=== PATIENT | female | born 1945 | race Caucasian/White ===

== ENCOUNTER → 2019-06-19 11:44 | Outpatient (BNVA) | payer MEDICARE, OTHER, SELFPAY | PROVIDERS: Family Provider Internal Medicine; PCP Internal Medicine; Referring Provider Internal Medicine; Visit Provider Internal Medicine Rheumatology | DX: M06.00 Rheumatoid arthritis without rheumatoid factor, unspecified site (principal); Z79.899 Other long term (current) drug therapy | CPT/HCPCS: 36415; 80053; 85025; 85651; 86140; 96365; J1602 ==

== ENCOUNTER → 2019-06-19 12:08 | Outpatient (BNVA) | payer MEDICARE, OTHER, SELFPAY | PROVIDERS: Family Provider Internal Medicine; PCP Internal Medicine; Referring Provider Internal Medicine; Visit Provider Internal Medicine Rheumatology | DX: M06.00 Rheumatoid arthritis without rheumatoid factor, unspecified site (principal) | CPT/HCPCS: 85025 ==

== ENCOUNTER 2019-06-19 13:15 | Outpatient (CLI) | payer MEDICARE, OTHER, SELFPAY | END 2019-06-19 13:16 | disposition home or self-care (01) | LOC: RHEOACUTE 06-26 16:24 | PROVIDERS: Family Provider Internal Medicine; PCP Internal Medicine; Visit Provider Internal Medicine Rheumatology | DX: Z76.89 Persons encountering health services in other specified circumstances (principal) | CPT/HCPCS: J1602 ==

== ENCOUNTER 2019-07-20 09:42 | Outpatient (CLI) | payer MEDICARE, OTHER, SELFPAY ==
[2019-07-20 10:05] VITALS: BP 149/63; PULSE 67; RESP 16; TEMP 36.5; O2SAT 96
[2019-07-20 11:20] VITALS: BP 130/65; PULSE 59; RESP 16; TEMP 36.5; O2SAT 96
== END 2019-07-20 09:43 | disposition home or self-care (01) ==
LOC: RHEOACUTE 09:43
PROVIDERS: Family Provider Internal Medicine; PCP Internal Medicine; Visit Provider Internal Medicine Rheumatology
DX: M06.00 Rheumatoid arthritis without rheumatoid factor, unspecified site (principal); Z79.899 Other long term (current) drug therapy; Z11.59 Encounter for screening for other viral diseases; Z72.89 Other problems related to lifestyle
CPT/HCPCS: 36415; 86704; 86803; 87340; 96365; J1602

== ENCOUNTER 2019-07-27 10:04 | Outpatient (CLI) | payer MEDICARE, OTHER, SELFPAY ==
--- NOTE | 2019-07-27 10:15 | MM_ITS ---
WS: [id number] BILATERAL DIGITAL SCREENING MAMMOGRAPHY WITH CAD CLINICAL INFORMATION: SCREENING HISTORY: Screening mammogram. No current complaints. COMPARISON: February 10, 2018 TECHNIQUE: Bilateral CC and MLO views. FINDINGS: Scattered fibroglandular densities bilaterally. Punctate calcifications. No suspicious focal mass, as ymmetry, calcifications, or architectural distortion. No evidence of malignancy. MM/[place] [id number] IMPRESSION: BI-RADS: 2-Benign FOLLOW UP: 1 Year Follow-up Recommend return to annual screening mammography.
== END 2019-07-27 10:05 | disposition home or self-care (01) ==
LOC: RADSHAW 10:08
PROVIDERS: Family Provider Internal Medicine; PCP Internal Medicine; Visit Provider Internal Medicine
DX: Z12.31 Encounter for screening mammogram for malignant neoplasm of breast (principal)
CPT/HCPCS: 77067

== ENCOUNTER 2019-08-17 08:25 | Outpatient (CLI) | payer MEDICARE, OTHER, SELFPAY | END 2019-08-17 08:26 | disposition home or self-care (01) | LOC: RHEOACUTE 08:26 | PROVIDERS: Family Provider Internal Medicine; PCP Internal Medicine; Visit Provider Internal Medicine Rheumatology | DX: Z01.89 Encounter for other specified special examinations (principal) ==

== ENCOUNTER 2019-09-06 13:50 | Outpatient (CLI) | payer MEDICARE, OTHER, SELFPAY ==
--- NOTE | 2019-09-06 14:03 | XR_ITS ---
WS: [id number] LEFT HAND: 3 VIEW(S) TECHNIQUE: PA, oblique and lateral. HISTORY: rheumatoid arthritis COMPARISON: 12/11/2015 Progression of erosive changes at the interphalangeal joints. Most significant involving the proximal interphalangeal joints of the second through fourth fingers. Extensive erosions and soft tissue anitha a and osteopenia. Additional erosions at the first carpometacarpal joint. Subtle erosions involving t he second and fifth metacarpal heads. Overall progression since the prior examination. XR/XR hand LT min 3V* [id number] IMPRESSION: Progression of erosive changes at the interphalangeal joint spaces and the firs t carpometacarpal joint. Most consistent with erosive arthritis. Subtle changes involving the second and fifth metacarpal heads consistent with erosions which can be seen with rheumatoid.
--- NOTE | 2019-09-06 14:03 | XR_ITS ---
WS: [id number] LEFT FOOT: 3 VIEW(S) TECHNIQUE: PA, oblique and lateral. HISTORY: rheumatoid arthritis COMPARISON: None available. No acute fracture or dislocation. There is diffuse osteopenia which can be early finding of rheumatoid arthritis. No definite erosions. Moderate-sized calcaneal spur. Prior arthroplasty at the LEFT ankle. XR/XR foot LT min 3V* [id number] IMPRESSION: 1. Mild diffuse osteopenia. May be an early finding of rheumatoid arthritis. 2. No erosions.
--- NOTE | 2019-09-06 14:03 | XR_ITS ---
WS: [id number] RIGHT FOOT: 3 VIEW(S) TECHNIQUE: PA, oblique and lateral. HISTORY: rheumatoid arthritis COMPARISON: None available. No acute fracture or dislocation. Normal tarsal/metatarsal alignment. No erosions or subluxation. Moderate size calcaneal spur. Mild de generative changes along the dorsal surface of the midfoot. More likely osteoarthritis. No soft tissue abnormality or bone destruction. 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 No changes of rheumatoid.
--- NOTE | 2019-09-06 14:03 | XR_ITS ---
WS: [id number] RIGHT HAND: 3 VIEW(S) TECHNIQUE: PA, oblique and lateral. HISTORY: rheumatoid arthritis COMPARISON: 12/11/2015 Since the prior examination plate and screw fixation across the distal radius and third metacarpal. S evere rheumatoid changes involving the carpal bones. There is loss of joint space. Poor distinction o f the carpus. Extensive erosions in the bones of the wrist and proximal metacarpals. Significant prog ression of disease since 12/11/2015. Also significant progression since 08/12/2017. Extensive interphalangeal joint space narrowing involving the proximal and distal joint spaces. Hyper trophic bone formation with loss of the joint spaces. XR/XR hand RT min 3V* [id number] IMPRESSION: 1. Severe rheumatoid arthritis involving the carpus and adjacent articular josue face with plate and screw fixation between the radius and third metacarpal. 2. Significant progression of rheumatoid findings since 08/12/2017. 3. Severe interphalangeal joint space narrowing. More typical of osteoarthriti s or erosive arthritis.
== END 2019-09-06 13:51 | disposition home or self-care (01) ==
LOC: RADWPI 13:55
PROVIDERS: Family Provider Internal Medicine; PCP Internal Medicine; Visit Provider Internal Medicine Rheumatology
DX: M06.9 Rheumatoid arthritis, unspecified (principal); M19.071 Primary osteoarthritis, right ankle and foot; M85.872 Other specified disorders of bone density and structure, left ankle and foot
CPT/HCPCS: 73130; 73630

== ENCOUNTER 2019-09-14 12:46 | Outpatient (CLI) | payer MEDICARE, OTHER, SELFPAY ==
[2019-09-14 13:14] VITALS: BP 126/58; PULSE 84; RESP 16; TEMP 36.7; O2SAT 98
--- NOTE | 2019-09-14 14:20 | PC.NURSE ---
c/o finger pain and swelling. left hand 4th digit. Dr. Cifuentes notified.
[2019-09-14 14:35] VITALS: BP 151/69; PULSE 73; RESP 18; TEMP 36.6; O2SAT 96
== END 2019-09-14 12:47 | disposition home or self-care (01) ==
LOC: RHEOACUTE 12:48
PROVIDERS: Family Provider Internal Medicine; PCP Internal Medicine; Visit Provider Internal Medicine Rheumatology
DX: M10.00 Idiopathic gout, unspecified site (principal); M06.00 Rheumatoid arthritis without rheumatoid factor, unspecified site; D64.9 Anemia, unspecified; Z79.899 Other long term (current) drug therapy; M19.90 Unspecified osteoarthritis, unspecified site
CPT/HCPCS: 20600; 36415; 80076; 82565; 82728; 84550; 85025; 85651; 86140; 96365; J1602; J2001; J3301

== ENCOUNTER 2019-11-09 08:54 | Outpatient (CLI) | payer MEDICARE, OTHER, SELFPAY ==
[2019-11-09 09:05] VITALS: BP 136/67; PULSE 63; RESP 16; TEMP 36.6; O2SAT 98
[2019-11-09 10:35] VITALS: BP 134/63; PULSE 62; RESP 16; TEMP 36.7; O2SAT 98
== END 2019-11-09 08:55 | disposition home or self-care (01) ==
LOC: RHEOACUTE 08:57
PROVIDERS: Family Provider Internal Medicine; PCP Internal Medicine; Visit Provider Internal Medicine Rheumatology
DX: M06.00 Rheumatoid arthritis without rheumatoid factor, unspecified site (principal); Z79.899 Other long term (current) drug therapy
CPT/HCPCS: 36415; 80076; 82565; 85025; 85651; 86140; 96365; J1602

== ENCOUNTER 2020-01-04 09:19 | Outpatient (CLI) | payer MEDICARE, OTHER, SELFPAY ==
[2020-01-04 09:25] VITALS: BP 156/59; PULSE 64; RESP 16; TEMP 36.7; O2SAT 98
--- NOTE | 2020-01-04 10:18 | PC.NURSE ---
States L 4th finger pain. States will need injection sometime. States starts hurting worse 2 weeks prior to infusion.
[2020-01-04 10:47] VITALS: BP 141/70; PULSE 64; RESP 16; TEMP 36.7; O2SAT 98
== END 2020-01-04 09:20 | disposition home or self-care (01) ==
LOC: RHEOACUTE 09:20
PROVIDERS: Family Provider Internal Medicine; PCP Internal Medicine; Visit Provider Internal Medicine Rheumatology
DX: Z79.899 Other long term (current) drug therapy (principal); M06.00 Rheumatoid arthritis without rheumatoid factor, unspecified site
CPT/HCPCS: 80076; 82565; 85025; 85651; 86140; 96365; J1602

== ENCOUNTER → 2020-01-08 09:33 | Outpatient (BNVA) | payer MEDICARE, OTHER, SELFPAY | PROVIDERS: Family Provider Internal Medicine; PCP Internal Medicine; Visit Provider Internal Medicine Rheumatology | DX: M06.041 Rheumatoid arthritis without rheumatoid factor, right hand (principal); M06.042 Rheumatoid arthritis without rheumatoid factor, left hand; Z79.899 Other long term (current) drug therapy; M10.00 Idiopathic gout, unspecified site; M19.90 Unspecified osteoarthritis, unspecified site; D64.9 Anemia, unspecified; D72.829 Elevated white blood cell count, unspecified; Z79.52 Long term (current) use of systemic steroids | CPT/HCPCS: 20600; 99214; J1030 ==

== ENCOUNTER 2020-03-31 14:25 | Inpatient (IN) | payer MEDICARE, OTHER, SELFPAY ==
[2020-03-31] VITALS (14 sets, daily range): BP systolic 148–206; BP diastolic 63–90; PULSE 68–96; RESP 14–24; TEMP 36.9; O2SAT 95–98; BMI 36.8
--- NOTE | 2020-03-31 15:24 | XRR_ITS ---
PROCEDURE INFORMATION: Exam: XR Chest, 1 View Exam date and time: 03/31/2020 3:36 PM Age: 74 years old Clinical indication: Left-sided chest pain TECHNIQUE: Imaging protocol: XR of the chest Views: 1 view. COMPARISON: CR Chest 2 views* [id number] 07/13/2018 3:22 PM FINDINGS: Lungs: Stable right calcified hilar nodes and/or mediastinal nodes and/or lung nodules consistent with old granulomatous disease. Pleural space: Unremarkable. No pleural effusion. No pneumothorax. Heart/Mediastinum: Unremarkable. No cardiomegaly. Bones/joints: Stable postoperative metallic fixation of the cervical spine with or without metallic artifact. Total right shoulder replacement. XR/XR chest 1V portable [id number] IMPRESSION: No acute findings.
--- NOTE | 2020-03-31 15:24 | ECG_ITS ---
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
[2020-03-31] MEDS: aspirin 81 mg Chew Tablet 324 MG PO (15:53)
[2020-03-31 15:54] LABS: Basophils # 0.1 10^3/uL (0.0-0.1); Basophils % 0.4 %; Eosinophils # 0.4 10^3/uL (0.0-0.8); Hematocrit 31.2 % (37.0-47.0); Lymphocytes # 1.9 10^3/uL (0.8-4.8); Lymphocytes % 10.6 %; Mean Corpuscular HGB Conc 28.8 g/dL (30.0-36.0); Mean Corpuscular Hemoglobin 26.1 pg (28.0-34.0); Mean Corpuscular Volume 90.4 fL (81-99); Mean Platelet Volume 10.3 fL (7.4-10.4); Monocytes # 1.2 10^3/uL (0.2-0.9); Monocytes % 6.8 %; Neutrophils # 14.32 10^3/uL (1.8-7.7); Neutrophils % 78.6 %; Nucleated Red Blood Cells % 0 %; Platelet Count 439 10^3/cmm (130-400); Red Blood Count 3.45 10^6/uL (4.1-5.3); Red Cell Distribution Width 16.9 % (12.1-15.1); White Blood Count 18.2 10^3/uL (4.0-10.0)
[2020-03-31 16:17] LABS: Troponin(5th) Baseline 11 ng/L (0-10)
--- NOTE | 2020-03-31 16:19 | CTR_ITS ---
PROCEDURE INFORMATION: Exam: CT Angiography Chest With Contrast Exam date and time: 03/31/2020 5:16 PM Age: 74 years old Clinical indication: Left-sided chest pain; Prior surgery; Surgery date: 6+ months; Surgery type: Shoulder, gb; Patient HX: C/O L sided cp w SOB; Additional info: Left-sided chest pain and dyspnea TECHNIQUE: Imaging protocol: Computed tomographic angiography of the chest with intravenous contrast. 3D rendering (Not supervised by radiologist): MIP and/or 3D reconstructed images were created by the technologist. Radiation optimization: All CT scans at this facility use at least one of these dose optimization techniques: automated exposure control; mA and/or kV adjustment per patient size (includes targeted exams where dose is matched to clinical indication); or iterative reconstruction. Contrast material: VISI 320; Contrast volume: 95 ml; Contrast route: INTRAVENOUS (IV); COMPARISON: CT Chest/Abdomen/Pelvis w IV* 03/22/2017 9:35 AM RADIATION DOSE METRICS: Total DLP (mGy-cm): 580.95 FINDINGS: Pulmonary arteries: Normal. No pulmonary emboli. Aorta: Unremarkable. No aortic aneurysm. No aortic dissection. Great vessels off aortic arch: Calcification of the thoracic aorta and/or great vessels consistent with atherosclerotic vessel disease. Lungs: Increased left basilar discoid atelectasis and/or scarring. Pleural space: Unremarkable. No pneumothorax. No pleural effusion. Heart: Severe calcified coronary artery disease. Lymph nodes: Calcified right hilar nodes and/or mediastinal nodes and/or lung granulomas consistent with old granulomatous disease. Gallbladder and bile ducts: Stable cholecystectomy. Spleen: One or more stable accessory splenules. Bones/joints: Total right shoulder replacement. Moderate left primary glenohumeral osteoarthritis. Postoperative metallic fixation of the cervical spine with or without metallic artifact. Moderate thoracic spondylosis. Soft tissues: Unremarkable. CT/CT angio chest PE protcl [id number] IMPRESSION: 1. Increased left basilar discoid atelectasis and/or scarring. 2. Severe calcified coronary artery disease. Radiation Dose CTDIVOL = (mGy): DLP = 580.95 (mGy-cm)
--- NOTE | 2020-03-31 16:22 | W.ED.CHESTPA ---
Documented by User: Mary Jo Marley MD 04/04/20 06:43 HPI - Chest Pain General: Chief Complaint: Chest Pain Stated Complaint: CP Time Seen by Provider: 03/31/20 15:20 History of Present Illness: HPI narrative: This patient is a 74-year-old female who presents today with chest pain. Her chest pain has been constant for the past 3 days. It is located on the left side of her chest anteriorly. It is present when she breathes and is worse with a deep breath. She gets very short of breath with exertion. She has not had symptoms like this before. She has arthritis and has problems with her left shoulder. When the pain first started she thought that is what was causing it but now she says it feels totally different. She has had some nausea but no vomiting. No fever. Some cough. She is not currently on any treatment for her rheumatoid arthritis. Associated symptoms: Deny abdominal pain, dyspnea, fever(s), nausea or vomiting Review of Systems General: Reports: 10 or more systems reviewed and unremarkable except in HPI and below Const: Reports: fatigue; Denies: fever(s), chills or malaise Eyes: Denies: change in vision ENMT: Denies: odynophagia Card: Denies: chest pain or swelling of feet/ankles Resp: Denies: dyspnea, productive cough or non-productive cough GI: Denies: abdominal pain, nausea or vomiting : Denies: flank pain or difficulty voiding Musc: Denies: neck pain or back pain Skin/Breast: Denies: rash Neuro: Denies: headache(s), numbness in extremities or weakness in extremities Memo/Lymph: Denies: easy bruising or easy bleeding PFSH ED PFSH: Medical History Atypical chest pain Dyslipidemia Gout High risk medication use Immunization counseling Osteoarthritis Seronegative rheumatoid arthritis Seronegative rheumatoid arthritis of both hands Surgical History H/O total knee replacement History of arthroscopic knee surgery History of carpal tunnel surgery History of hip replacement History of hysterectomy History of laparoscopic cholecystectomy History of shoulder surgery History of thumb surgery Family History Sister CAD (coronary artery disease) Heart attack in her 50s and of the same. Mother Stroke Strong family history for CVA. Grandfather, mother, niece all had a CVA Other Asthma Diabetes Hypertension Denies family history of Systemic lupus erythematosus, unspecified Rheumatoid arthritis Social History Smoking and tobacco status: never smoked Alcohol intake: never History of recent travel: No Physical Exam Const: COMMON NORMALS: no acute distress, patient oriented x3, no limitations and alert GENERAL APPEARANCE: cooperative and comfortable HENMT: HEAD & SCALP: normal to inspection FACE & SINUS: normal facial exam Eye: GENERAL EYE: appearance normal, both eyes and all related structures Neck/C-Spine: COMMON NORMALS: supple, no meningeal signs and no JVD Chest: COMMONS NORMALS: normal inspection of the chest Resp: COMMON NORMALS: normal respiratory effort, No use of accessory muscles and clear to auscultation bilaterally AUSCULTATION: clear to auscultation bilaterally Cardio: COMMON NORMALS: no JVD, regular rate, regular rhythm and No murmurs present (Cardio) RATE: regular rate RHYTHM: regular rhythm GI: COMMON NORMALS: Normal to inspection, nondistended, normoactive bowel sounds present, Soft to palpation and non-tender INSPECTION: Yes normal to inspection AUSCULTATION: Yes normoactive bowel sounds PALPATION: Yes Soft to palpation Back/Pelvis: COMMON NORMALS: thoracic and lumbar spine normal to inspection Extremity: COMMON NORMALS: normal to inspection Neuro: COMMON NORMALS: patient oriented x3, moves all extremities, no focal motor deficits and no sensory deficits noted SENSORIUM/ORIENTATION: Yes alert MENINGEAL SIGNS: Yes no meningeal signs Psych: COMMON NORMALS: mental status grossly normal, cooperative and normal affect Skin: COMMON NORMALS: no rashes or lesions noted and turgor normal GENERAL SKIN EXAM: no rashes or lesions noted and turgor normal Course ED course: This patient presents with some chest pain which sounds fairly atypical for cardiac however during her work-up it was noted that she had heavy calcifications on the coronary arteries. She has not had a cardiac work-up. In spite of her fairly benign evaluation otherwise given her increasing and continuing chest pain she probably needs to be admitted for further evaluation. She also has an elevated white count but she has a history of this and has been evaluated for possibility of lymphoma. Apparently no definitive diagnosis was made but a white count of 18 does not appear to be particularly unusual for her. Signed out to Dr. Yepez while awaiting further lab results. Vital Signs: Vital signs: Vital Signs Temperature 97.8 F 04/04/20 04:09 Pulse Rate 71 04/04/20 04:09 Respiratory Rate 18 04/04/20 04:09 Blood Pressure 169/76 04/04/20 04:09 Pulse Oximetry 97 04/04/20 04:09 MDM - Chest Pain Lab Data: Labs: Lab Results 03/31/20 03/31/20 03/31/20 Range/Units 15:40 15:40 15:40 WBC 18.2 H (4.0-10.0) 10^3/ uL RBC 3.45 L (4.1-5.3) 10^6/u L Hgb 9.0 L (11.5-15.3) g/dL Hct 31.2 L (37.0-47.0) % MCV 90.4 (81-99) fL MCH 26.1 L (28.0-34.0) pg MCHC 28.8 L (30.0-36.0) g/dL RDW 16.9 H (12.1-15.1) % Plt Count 439 H (130-400) 10^3/c mm MPV 10.3 (7.4-10.4) fL Neut % (Auto) 78.6 % Lymph % (Auto) 10.6 % Moore % (Auto) 6.8 % Eos % (Auto) 2.0 % Baso % (Auto) 0.4 % Neut # (Auto) 14.32 H (1.8-7.7) 10^3/u L Lymph # (Auto) 1.9 (0.8-4.8) 10^3/u L Moore # (Auto) 1.2 H (0.2-0.9) 10^3/u L Eos # (Auto) 0.4 (0.0-0.8) 10^3/u L Baso # (Auto) 0.1 (0.0-0.1) 10^3/u L Nucleated RBC % (a uto) 0 % Nucleated RBCs # 0.0 /100WBC Sodium 136 (136-145) mmol/L Potassium 4.5 (3.5-5.1) mmol/L Chloride 99 (98-107) mmol/L Carbon Dioxide 26 (22-29) mmol/L Anion Gap 15.5 (5-19) BUN 24 H (8-23) mg/dL Creatinine 1.0 H (0.5-0.9) mg/dL GFR Calculation Not Reportable Glucose 150 H (65-115) mg/dL POC Glucose (70-110) mg/dL Estimat Average Gl ucose Hemoglobin A1c (4.0-6.0) % Calculated Osmolal ity 289 (285-295) mOsm/k g Calcium 9.5 (8.5-10.5) mg/dL Magnesium (1.7-2.3) mg/dL Total Bilirubin 0.3 (0.15-1.2) mg/dL AST 10 (0-32) U/L ALT 10 (0-33) U/L Alkaline Phosphata se 102 (35-105) IU/L Troponin T Gen 5 n g/L (0-10) ng/L Troponin T Baselin e 11 H (0-10) ng/L Troponin T 120 Min [place] (0-10) ng/L Delta Troponin T (0-10) ABS# NT-Pro-B Natriuret Pep 276 (0-450) pg/mL Total Protein 7.8 (6.6-8.7) g/dL Albumin 3.4 L (3.5-5.2) g/dL Globulin 4.4 (1.3-4.6) g/dL Triglycerides (0-150) mg/dL Cholesterol (0-200) mg/dL LDL Cholesterol, C alc (50-129) mg/dL HDL Cholesterol (60-100) mg/dL LDL/HDL Ratio (0.00-3.22) RATI O Cholesterol/HDL Ra wilfrid (0.0-4.40) mg/dL Lipase 16 (13-60) U/L Procalcitonin (0-0.5) ng/mL Urine Color (Yellow) Urine Appearance (CLEAR) Urine pH (5-7) Ur Specific Gravit y (1.005-1.030) Urine Protein (Negative) Urine Glucose (UA) (Normal) Urine Ketones (Negative) Urine Blood (Negative) Urine Nitrate (Negative) Urine Bilirubin (Negative) Urine Urobilinogen (Negative) mg/dL Ur Leukocyte Hailey ase (Negative) Urine RBC (0-2) /hpf Urine WBC (0-5) /hpf Ur Squamous Epith Cells (0-5) /hpf Amorphous Sediment Urine Bacteria (NONE) /hpf SARS-CoV-2 Ag (Rap id) (Negative) 03/31/20 03/31/20 03/31/20 Range/Units 15:40 17:34 18:45 WBC (4.0-10.0) 10^3/ uL RBC (4.1-5.3) 10^6/u L Hgb (11.5-15.3) g/dL Hct (37.0-47.0) % MCV (81-99) fL MCH (28.0-34.0) pg MCHC (30.0-36.0) g/dL RDW (12.1-15.1) % Plt Count (130-400) 10^3/c mm MPV (7.4-10.4) fL Neut % (Auto) % Lymph % (Auto) % Moore % (Auto) % Eos % (Auto) % Baso % (Auto) % Neut # (Auto) (1.8-7.7) 10^3/u L Lymph # (Auto) (0.8-4.8) 10^3/u L Moore # (Auto) (0.2-0.9) 10^3/u L Eos # (Auto) (0.0-0.8) 10^3/u L Baso # (Auto) (0.0-0.1) 10^3/u L Nucleated RBC % (a uto) % Nucleated RBCs # /100WBC Sodium (136-145) mmol/L Potassium (3.5-5.1) mmol/L Chloride (98-107) mmol/L Carbon Dioxide (22-29) mmol/L Anion Gap (5-19) BUN (8-23) mg/dL Creatinine (0.5-0.9) mg/dL GFR Calculation Glucose (65-115) mg/dL POC Glucose (70-110) mg/dL Estimat Average Gl ucose Hemoglobin A1c (4.0-6.0) % Calculated Osmolal ity (285-295) mOsm/k g Calcium (8.5-10.5) mg/dL Magnesium (1.7-2.3) mg/dL Total Bilirubin (0.15-1.2) mg/dL AST (0-32) U/L ALT (0-33) U/L Alkaline Phosphata se (35-105) IU/L Troponin T Gen 5 n g/L (0-10) ng/L Troponin T Baselin e (0-10) ng/L Troponin T 120 Min [place] 10.66 H (0-10) ng/L Delta Troponin T -0.34 L (0-10) ABS# NT-Pro-B Natriuret Pep (0-450) pg/mL Total Protein (6.6-8.7) g/dL Albumin (3.5-5.2) g/dL Globulin (1.3-4.6) g/dL Triglycerides (0-150) mg/dL Cholesterol (0-200) mg/dL LDL Cholesterol, C alc (50-129) mg/dL HDL Cholesterol (60-100) mg/dL LDL/HDL Ratio (0.00-3.22) RATI O Cholesterol/HDL Ra wilfrid (0.0-4.40) mg/dL Lipase (13-60) U/L Procalcitonin (0-0.5) ng/mL Urine Color Yellow (Yellow) Urine Appearance Clear (CLEAR) Urine pH 5 (5-7) Ur Specific Gravit y 1.015 (1.005-1.030) Urine Protein 1+ H (Negative) Urine Glucose (UA) Norm (Normal) Urine Ketones Negative (Negative) Urine Blood Neg (Negative) Urine Nitrate Negative (Negative) Urine Bilirubin Neg (Negative) Urine Urobilinogen Neg (Negative) mg/dL Ur Leukocyte Hailey ase Negative (Negative) Urine RBC 0-4 H (0-2) /hpf Urine WBC 5-10 H (0-5) /hpf Ur Squamous Epith Cells 0-4 H (0-5) /hpf Amorphous Sediment Not Reportable Urine Bacteria 1+ H (NONE) /hpf SARS-CoV-2 Ag (Rap id) Negative (Negative) 04/01/20 04/01/20 04/01/20 Range/Units 05:44 05:44 05:44 WBC (4.0-10.0) 10^3/ uL RBC (4.1-5.3) 10^6/u L Hgb (11.5-15.3) g/dL Hct (37.0-47.0) % MCV (81-99) fL MCH (28.0-34.0) pg MCHC (30.0-36.0) g/dL RDW (12.1-15.1) % Plt Count (130-400) 10^3/c mm MPV (7.4-10.4) fL Neut % (Auto) % Lymph % (Auto) % Moore % (Auto) % Eos % (Auto) % Baso % (Auto) % Neut # (Auto) (1.8-7.7) 10^3/u L Lymph # (Auto) (0.8-4.8) 10^3/u L Moore # (Auto) (0.2-0.9) 10^3/u L Eos # (Auto) (0.0-0.8) 10^3/u L Baso # (Auto) (0.0-0.1) 10^3/u L Nucleated RBC % (a uto) % Nucleated RBCs # /100WBC Sodium 138 (136-145) mmol/L Potassium 4.0 (3.5-5.1) mmol/L Chloride 102 (98-107) mmol/L Carbon Dioxide 28 (22-29) mmol/L Anion Gap 12.0 (5-19) BUN 24 H (8-23) mg/dL Creatinine 0.9 (0.5-0.9) mg/dL GFR Calculation Not Reportable Glucose 161 H (65-115) mg/dL POC Glucose (70-110) mg/dL Estimat Average Gl ucose 214 Hemoglobin A1c 9.1 H (4.0-6.0) % Calculated Osmolal ity 294 (285-295) mOsm/k g Calcium 9.4 (8.5-10.5) mg/dL Magnesium 1.4 L (1.7-2.3) mg/dL Total Bilirubin (0.15-1.2) mg/dL AST (0-32) U/L ALT (0-33) U/L Alkaline Phosphata se (35-105) IU/L Troponin T Gen 5 n g/L (0-10) ng/L Troponin T Baselin e (0-10) ng/L Troponin T 120 Min [place] (0-10) ng/L Delta Troponin T (0-10) ABS# NT-Pro-B Natriuret Pep (0-450) pg/mL Total Protein (6.6-8.7) g/dL Albumin (3.5-5.2) g/dL Globulin (1.3-4.6) g/dL Triglycerides 99 (0-150) mg/dL Cholesterol 98 (0-200) mg/dL LDL Cholesterol, C alc 37 L (50-129) mg/dL HDL Cholesterol 41 L (60-100) mg/dL LDL/HDL Ratio 0.90 (0.00-3.22) RATI O Cholesterol/HDL Ra wilfrid 2.39 (0.0-4.40) mg/dL Lipase (13-60) U/L Procalcitonin 0.24 (0-0.5) ng/mL Urine Color (Yellow) Urine Appearance (CLEAR) Urine pH (5-7) Ur Specific Gravit y (1.005-1.030) Urine Protein (Negative) Urine Glucose (UA) (Normal) Urine Ketones (Negative) Urine Blood (Negative) Urine Nitrate (Negative) Urine Bilirubin (Negative) Urine Urobilinogen (Negative) mg/dL Ur Leukocyte Hailey ase (Negative) Urine RBC (0-2) /hpf Urine WBC (0-5) /hpf Ur Squamous Epith Cells (0-5) /hpf Amorphous Sediment Urine Bacteria (NONE) /hpf SARS-CoV-2 Ag (Rap id) (Negative) 04/01/20 04/01/20 04/01/20 Range/Units 05:44 06:37 12:18 WBC (4.0-10.0) 10^3/ uL RBC (4.1-5.3) 10^6/u L Hgb (11.5-15.3) g/dL Hct (37.0-47.0) % MCV (81-99) fL MCH (28.0-34.0) pg MCHC (30.0-36.0) g/dL RDW (12.1-15.1) % Plt Count (130-400) 10^3/c mm MPV (7.4-10.4) fL Neut % (Auto) % Lymph % (Auto) % Moore % (Auto) % Eos % (Auto) % Baso % (Auto) % Neut # (Auto) (1.8-7.7) 10^3/u L Lymph # (Auto) (0.8-4.8) 10^3/u L Moore # (Auto) (0.2-0.9) 10^3/u L Eos # (Auto) (0.0-0.8) 10^3/u L Baso # (Auto) (0.0-0.1) 10^3/u L Nucleated RBC % (a uto) % Nucleated RBCs # /100WBC Sodium (136-145) mmol/L Potassium (3.5-5.1) mmol/L Chloride (98-107) mmol/L Carbon Dioxide (22-29) mmol/L Anion Gap (5-19) BUN (8-23) mg/dL Creatinine (0.5-0.9) mg/dL GFR Calculation Glucose (65-115) mg/dL POC Glucose 166 211 (70-110) mg/dL Estimat Average Gl ucose Hemoglobin A1c (4.0-6.0) % Calculated Osmolal ity (285-295) mOsm/k g Calcium (8.5-10.5) mg/dL Magnesium (1.7-2.3) mg/dL Total Bilirubin (0.15-1.2) mg/dL AST (0-32) U/L ALT (0-33) U/L Alkaline Phosphata se (35-105) IU/L Troponin T Gen 5 n g/L 12 H (0-10) ng/L Troponin T Baselin e (0-10) ng/L Troponin T 120 Min [place] (0-10) ng/L Delta Troponin T (0-10) ABS# NT-Pro-B Natriuret Pep (0-450) pg/mL Total Protein (6.6-8.7) g/dL Albumin (3.5-5.2) g/dL Globulin (1.3-4.6) g/dL Triglycerides (0-150) mg/dL Cholesterol (0-200) mg/dL LDL Cholesterol, C alc (50-129) mg/dL HDL Cholesterol (60-100) mg/dL LDL/HDL Ratio (0.00-3.22) RATI O Cholesterol/HDL Ra wilfrid (0.0-4.40) mg/dL Lipase (13-60) U/L Procalcitonin (0-0.5) ng/mL Urine Color (Yellow) Urine Appearance (CLEAR) Urine pH (5-7) Ur Specific Gravit y (1.005-1.030) Urine Protein (Negative) Urine Glucose (UA) (Normal) Urine Ketones (Negative) Urine Blood (Negative) Urine Nitrate (Negative) Urine Bilirubin (Negative) Urine Urobilinogen (Negative) mg/dL Ur Leukocyte Hailey ase (Negative) Urine RBC (0-2) /hpf Urine WBC (0-5) /hpf Ur Squamous Epith Cells (0-5) /hpf Amorphous Sediment Urine Bacteria (NONE) /hpf SARS-CoV-2 Ag (Rap id) (Negative) 04/01/20 Range/Units 13:10 WBC (4.0-10.0) 10^3/ uL RBC (4.1-5.3) 10^6/u L Hgb (11.5-15.3) g/dL Hct (37.0-47.0) % MCV (81-99) fL MCH (28.0-34.0) pg MCHC (30.0-36.0) g/dL RDW (12.1-15.1) % Plt Count (130-400) 10^3/c mm MPV (7.4-10.4) fL Neut % (Auto) % Lymph % (Auto) % Moore % (Auto) % Eos % (Auto) % Baso % (Auto) % Neut # (Auto) (1.8-7.7) 10^3/u L Lymph # (Auto) (0.8-4.8) 10^3/u L Moore # (Auto) (0.2-0.9) 10^3/u L Eos # (Auto) (0.0-0.8) 10^3/u L Baso # (Auto) (0.0-0.1) 10^3/u L Nucleated RBC % (a uto) % Nucleated RBCs # /100WBC Sodium (136-145) mmol/L Potassium (3.5-5.1) mmol/L Chloride (98-107) mmol/L Carbon Dioxide (22-29) mmol/L Anion Gap (5-19) BUN (8-23) mg/dL Creatinine (0.5-0.9) mg/dL GFR Calculation Glucose (65-115) mg/dL POC Glucose 227 (70-110) mg/dL Estimat Average Gl ucose Hemoglobin A1c (4.0-6.0) % Calculated Osmolal ity (285-295) mOsm/k g Calcium (8.5-10.5) mg/dL Magnesium (1.7-2.3) mg/dL Total Bilirubin (0.15-1.2) mg/dL AST (0-32) U/L ALT (0-33) U/L Alkaline Phosphata se (35-105) IU/L Troponin T Gen 5 n g/L (0-10) ng/L Troponin T Baselin e (0-10) ng/L Troponin T 120 Min [place] (0-10) ng/L Delta Troponin T (0-10) ABS# NT-Pro-B Natriuret Pep (0-450) pg/mL Total Protein (6.6-8.7) g/dL Albumin (3.5-5.2) g/dL Globulin (1.3-4.6) g/dL Triglycerides (0-150) mg/dL Cholesterol (0-200) mg/dL LDL Cholesterol, C alc (50-129) mg/dL HDL Cholesterol (60-100) mg/dL LDL/HDL Ratio (0.00-3.22) RATI O Cholesterol/HDL Ra wilfrid (0.0-4.40) mg/dL Lipase (13-60) U/L Procalcitonin (0-0.5) ng/mL Urine Color (Yellow) Urine Appearance (CLEAR) Urine pH (5-7) Ur Specific Gravit y (1.005-1.030) Urine Protein (Negative) Urine Glucose (UA) (Normal) Urine Ketones (Negative) Urine Blood (Negative) Urine Nitrate (Negative) Urine Bilirubin (Negative) Urine Urobilinogen (Negative) mg/dL Ur Leukocyte Hailey ase (Negative) Urine RBC (0-2) /hpf Urine WBC (0-5) /hpf Ur Squamous Epith Cells (0-5) /hpf Amorphous Sediment Urine Bacteria (NONE) /hpf SARS-CoV-2 Ag (Rap id) (Negative) Discharge Plan Discharge Patient Disposition: Placed in Observation Admit Provider: Ortega Rosario Clinical Impression: Chest pain Qualifiers: Chest pain type: unspecified Qualified Code(s): R07.9 - Chest pain, unspecified Condition: Stable Referrals: Blossom Barney MD [Primary Care Provider] - Discharge Date/Time: 03/31/20 21:57 Coding Level of Care Code ED Test Case Developer for Chg Fwd Documented by User: Golden Yepez DO 03/31/20 20:07 HPI - Chest Pain General: Chief Complaint: Chest Pain Stated Complaint: CP Time Seen by Provider: 03/31/20 15:20 PFSH ED PFSH: Medical History Atypical chest pain Dyslipidemia Gout High risk medication use Immunization counseling Osteoarthritis Seronegative rheumatoid arthritis Seronegative rheumatoid arthritis of both hands Surgical History H/O total knee replacement History of arthroscopic knee surgery History of carpal tunnel surgery History of hip replacement History of hysterectomy History of laparoscopic cholecystectomy History of shoulder surgery History of thumb surgery Family History Sister CAD (coronary artery disease) Heart attack in her 50s and of the same. Mother Stroke Strong family history for CVA. Grandfather, mother, niece all had a CVA Other Asthma Diabetes Hypertension Denies family history of Systemic lupus erythematosus, unspecified Rheumatoid arthritis Social History Smoking and tobacco status: never smoked Alcohol intake: never History of recent travel: No Course Vital Signs: Vital signs: Vital Signs Temperature 97.8 F 04/04/20 04:09 Pulse Rate 71 04/04/20 04:09 Respiratory Rate 18 04/04/20 04:09 Blood Pressure 169/76 04/04/20 04:09 Pulse Oximetry 97 04/04/20 04:09 MDM - Chest Pain MDM Narrative: Medical decision making narrative: 74-year-old lady checked out to me by Dr. Marley. She has some continued chest discomfort. She has significant atherosclerosis of her coronaries on CTA. She will be kept for observation for chest pain. She has an increased white blood cell count of 18, hemoglobin of 9, and elevated platelet count of 439. Her EKG is normal. CTA did not reveal any infiltrate or pulmonary embolus. Lab Data: Labs: Lab Results 03/31/20 03/31/20 03/31/20 Range/Units 15:40 15:40 15:40 WBC 18.2 H (4.0-10.0) 10^3/ uL RBC 3.45 L (4.1-5.3) 10^6/u L Hgb 9.0 L (11.5-15.3) g/dL Hct 31.2 L (37.0-47.0) % MCV 90.4 (81-99) fL MCH 26.1 L (28.0-34.0) pg MCHC 28.8 L (30.0-36.0) g/dL RDW 16.9 H (12.1-15.1) % Plt Count 439 H (130-400) 10^3/c mm MPV 10.3 (7.4-10.4) fL Neut % (Auto) 78.6 % Lymph % (Auto) 10.6 % Moore % (Auto) 6.8 % Eos % (Auto) 2.0 % Baso % (Auto) 0.4 % Neut # (Auto) 14.32 H (1.8-7.7) 10^3/u L Lymph # (Auto) 1.9 (0.8-4.8) 10^3/u L Moore # (Auto) 1.2 H (0.2-0.9) 10^3/u L Eos # (Auto) 0.4 (0.0-0.8) 10^3/u L Baso # (Auto) 0.1 (0.0-0.1) 10^3/u L Nucleated RBC % (a uto) 0 % Nucleated RBCs # 0.0 /100WBC Sodium 136 (136-145) mmol/L Potassium 4.5 (3.5-5.1) mmol/L Chloride 99 (98-107) mmol/L Carbon Dioxide 26 (22-29) mmol/L Anion Gap 15.5 (5-19) BUN 24 H (8-23) mg/dL Creatinine 1.0 H (0.5-0.9) mg/dL GFR Calculation Not Reportable Glucose 150 H (65-115) mg/dL POC Glucose (70-110) mg/dL Estimat Average Gl ucose Hemoglobin A1c (4.0-6.0) % Calculated Osmolal ity 289 (285-295) mOsm/k g Calcium 9.5 (8.5-10.5) mg/dL Magnesium (1.7-2.3) mg/dL Total Bilirubin 0.3 (0.15-1.2) mg/dL AST 10 (0-32) U/L ALT 10 (0-33) U/L Alkaline Phosphata se 102 (35-105) IU/L Troponin T Gen 5 n g/L (0-10) ng/L Troponin T Baselin e 11 H (0-10) ng/L Troponin T 120 Min [place] (0-10) ng/L Delta Troponin T (0-10) ABS# NT-Pro-B Natriuret Pep 276 (0-450) pg/mL Total Protein 7.8 (6.6-8.7) g/dL Albumin 3.4 L (3.5-5.2) g/dL Globulin 4.4 (1.3-4.6) g/dL Triglycerides (0-150) mg/dL Cholesterol (0-200) mg/dL LDL Cholesterol, C alc (50-129) mg/dL HDL Cholesterol (60-100) mg/dL LDL/HDL Ratio (0.00-3.22) RATI O Cholesterol/HDL Ra wilfrid (0.0-4.40) mg/dL Lipase 16 (13-60) U/L Procalcitonin (0-0.5) ng/mL Urine Color (Yellow) Urine Appearance (CLEAR) Urine pH (5-7) Ur Specific Gravit y (1.005-1.030) Urine Protein (Negative) Urine Glucose (UA) (Normal) Urine Ketones (Negative) Urine Blood (Negative) Urine Nitrate (Negative) Urine Bilirubin (Negative) Urine Urobilinogen (Negative) mg/dL Ur Leukocyte Hailey ase (Negative) Urine RBC (0-2) /hpf Urine WBC (0-5) /hpf Ur Squamous Epith Cells (0-5) /hpf Amorphous Sediment Urine Bacteria (NONE) /hpf SARS-CoV-2 Ag (Rap id) (Negative) 03/31/20 03/31/20 03/31/20 Range/Units 15:40 17:34 18:45 WBC (4.0-10.0) 10^3/ uL RBC (4.1-5.3) 10^6/u L Hgb (11.5-15.3) g/dL Hct (37.0-47.0) % MCV (81-99) fL MCH (28.0-34.0) pg MCHC (30.0-36.0) g/dL RDW (12.1-15.1) % Plt Count (130-400) 10^3/c mm MPV (7.4-10.4) fL Neut % (Auto) % Lymph % (Auto) % Moore % (Auto) % Eos % (Auto) % Baso % (Auto) % Neut # (Auto) (1.8-7.7) 10^3/u L Lymph # (Auto) (0.8-4.8) 10^3/u L Moore # (Auto) (0.2-0.9) 10^3/u L Eos # (Auto) (0.0-0.8) 10^3/u L Baso # (Auto) (0.0-0.1) 10^3/u L Nucleated RBC % (a uto) % Nucleated RBCs # /100WBC Sodium (136-145) mmol/L Potassium (3.5-5.1) mmol/L Chloride (98-107) mmol/L Carbon Dioxide (22-29) mmol/L Anion Gap (5-19) BUN (8-23) mg/dL Creatinine (0.5-0.9) mg/dL GFR Calculation Glucose (65-115) mg/dL POC Glucose (70-110) mg/dL Estimat Average Gl ucose Hemoglobin A1c (4.0-6.0) % Calculated Osmolal ity (285-295) mOsm/k g Calcium (8.5-10.5) mg/dL Magnesium (1.7-2.3) mg/dL Total Bilirubin (0.15-1.2) mg/dL AST (0-32) U/L ALT (0-33) U/L Alkaline Phosphata se (35-105) IU/L Troponin T Gen 5 n g/L (0-10) ng/L Troponin T Baselin e (0-10) ng/L Troponin T 120 Min [place] 10.66 H (0-10) ng/L Delta Troponin T -0.34 L (0-10) ABS# NT-Pro-B Natriuret Pep (0-450) pg/mL Total Protein (6.6-8.7) g/dL Albumin (3.5-5.2) g/dL Globulin (1.3-4.6) g/dL Triglycerides (0-150) mg/dL Cholesterol (0-200) mg/dL LDL Cholesterol, C alc (50-129) mg/dL HDL Cholesterol (60-100) mg/dL LDL/HDL Ratio (0.00-3.22) RATI O Cholesterol/HDL Ra wilfrid (0.0-4.40) mg/dL Lipase (13-60) U/L Procalcitonin (0-0.5) ng/mL Urine Color Yellow (Yellow) Urine Appearance Clear (CLEAR) Urine pH 5 (5-7) Ur Specific Gravit y 1.015 (1.005-1.030) Urine Protein 1+ H (Negative) Urine Glucose (UA) Norm (Normal) Urine Ketones Negative (Negative) Urine Blood Neg (Negative) Urine Nitrate Negative (Negative) Urine Bilirubin Neg (Negative) Urine Urobilinogen Neg (Negative) mg/dL Ur Leukocyte Hailey ase Negative (Negative) Urine RBC 0-4 H (0-2) /hpf Urine WBC 5-10 H (0-5) /hpf Ur Squamous Epith Cells 0-4 H (0-5) /hpf Amorphous Sediment Not Reportable Urine Bacteria 1+ H (NONE) /hpf SARS-CoV-2 Ag (Rap id) Negative (Negative) 04/01/20 04/01/20 04/01/20 Range/Units 05:44 05:44 05:44 WBC (4.0-10.0) 10^3/ uL RBC (4.1-5.3) 10^6/u L Hgb (11.5-15.3) g/dL Hct (37.0-47.0) % MCV (81-99) fL MCH (28.0-34.0) pg MCHC (30.0-36.0) g/dL RDW (12.1-15.1) % Plt Count (130-400) 10^3/c mm MPV (7.4-10.4) fL Neut % (Auto) % Lymph % (Auto) % Moore % (Auto) % Eos % (Auto) % Baso % (Auto) % Neut # (Auto) (1.8-7.7) 10^3/u L Lymph # (Auto) (0.8-4.8) 10^3/u L Moore # (Auto) (0.2-0.9) 10^3/u L Eos # (Auto) (0.0-0.8) 10^3/u L Baso # (Auto) (0.0-0.1) 10^3/u L Nucleated RBC % (a uto) % Nucleated RBCs # /100WBC Sodium 138 (136-145) mmol/L Potassium 4.0 (3.5-5.1) mmol/L Chloride 102 (98-107) mmol/L Carbon Dioxide 28 (22-29) mmol/L Anion Gap 12.0 (5-19) BUN 24 H (8-23) mg/dL Creatinine 0.9 (0.5-0.9) mg/dL GFR Calculation Not Reportable Glucose 161 H (65-115) mg/dL POC Glucose (70-110) mg/dL Estimat Average Gl ucose 214 Hemoglobin A1c 9.1 H (4.0-6.0) % Calculated Osmolal ity 294 (285-295) mOsm/k g Calcium 9.4 (8.5-10.5) mg/dL Magnesium 1.4 L (1.7-2.3) mg/dL Total Bilirubin (0.15-1.2) mg/dL AST (0-32) U/L ALT (0-33) U/L Alkaline Phosphata se (35-105) IU/L Troponin T Gen 5 n g/L (0-10) ng/L Troponin T Baselin e (0-10) ng/L Troponin T 120 Min [place] (0-10) ng/L Delta Troponin T (0-10) ABS# NT-Pro-B Natriuret Pep (0-450) pg/mL Total Protein (6.6-8.7) g/dL Albumin (3.5-5.2) g/dL Globulin (1.3-4.6) g/dL Triglycerides 99 (0-150) mg/dL Cholesterol 98 (0-200) mg/dL LDL Cholesterol, C alc 37 L (50-129) mg/dL HDL Cholesterol 41 L (60-100) mg/dL LDL/HDL Ratio 0.90 (0.00-3.22) RATI O Cholesterol/HDL Ra wilfrid 2.39 (0.0-4.40) mg/dL Lipase (13-60) U/L Procalcitonin 0.24 (0-0.5) ng/mL Urine Color (Yellow) Urine Appearance (CLEAR) Urine pH (5-7) Ur Specific Gravit y (1.005-1.030) Urine Protein (Negative) Urine Glucose (UA) (Normal) Urine Ketones (Negative) Urine Blood (Negative) Urine Nitrate (Negative) Urine Bilirubin (Negative) Urine Urobilinogen (Negative) mg/dL Ur Leukocyte Hailey ase (Negative) Urine RBC (0-2) /hpf Urine WBC (0-5) /hpf Ur Squamous Epith Cells (0-5) /hpf Amorphous Sediment Urine Bacteria (NONE) /hpf SARS-CoV-2 Ag (Rap id) (Negative) 04/01/20 04/01/20 04/01/20 Range/Units 05:44 06:37 12:18 WBC (4.0-10.0) 10^3/ uL RBC (4.1-5.3) 10^6/u L Hgb (11.5-15.3) g/dL Hct (37.0-47.0) % MCV (81-99) fL MCH (28.0-34.0) pg MCHC (30.0-36.0) g/dL RDW (12.1-15.1) % Plt Count (130-400) 10^3/c mm MPV (7.4-10.4) fL Neut % (Auto) % Lymph % (Auto) % Moore % (Auto) % Eos % (Auto) % Baso % (Auto) % Neut # (Auto) (1.8-7.7) 10^3/u L Lymph # (Auto) (0.8-4.8) 10^3/u L Moore # (Auto) (0.2-0.9) 10^3/u L Eos # (Auto) (0.0-0.8) 10^3/u L Baso # (Auto) (0.0-0.1) 10^3/u L Nucleated RBC % (a uto) % Nucleated RBCs # /100WBC Sodium (136-145) mmol/L Potassium (3.5-5.1) mmol/L Chloride (98-107) mmol/L Carbon Dioxide (22-29) mmol/L Anion Gap (5-19) BUN (8-23) mg/dL Creatinine (0.5-0.9) mg/dL GFR Calculation Glucose (65-115) mg/dL POC Glucose 166 211 (70-110) mg/dL Estimat Average Gl ucose Hemoglobin A1c (4.0-6.0) % Calculated Osmolal ity (285-295) mOsm/k g Calcium (8.5-10.5) mg/dL Magnesium (1.7-2.3) mg/dL Total Bilirubin (0.15-1.2) mg/dL AST (0-32) U/L ALT (0-33) U/L Alkaline Phosphata se (35-105) IU/L Troponin T Gen 5 n g/L 12 H (0-10) ng/L Troponin T Baselin e (0-10) ng/L Troponin T 120 Min [place] (0-10) ng/L Delta Troponin T (0-10) ABS# NT-Pro-B Natriuret Pep (0-450) pg/mL Total Protein (6.6-8.7) g/dL Albumin (3.5-5.2) g/dL Globulin (1.3-4.6) g/dL Triglycerides (0-150) mg/dL Cholesterol (0-200) mg/dL LDL Cholesterol, C alc (50-129) mg/dL HDL Cholesterol (60-100) mg/dL LDL/HDL Ratio (0.00-3.22) RATI O Cholesterol/HDL Ra wilfrid (0.0-4.40) mg/dL Lipase (13-60) U/L Procalcitonin (0-0.5) ng/mL Urine Color (Yellow) Urine Appearance (CLEAR) Urine pH (5-7) Ur Specific Gravit y (1.005-1.030) Urine Protein (Negative) Urine Glucose (UA) (Normal) Urine Ketones (Negative) Urine Blood (Negative) Urine Nitrate (Negative) Urine Bilirubin (Negative) Urine Urobilinogen (Negative) mg/dL Ur Leukocyte Hailey ase (Negative) Urine RBC (0-2) /hpf Urine WBC (0-5) /hpf Ur Squamous Epith Cells (0-5) /hpf Amorphous Sediment Urine Bacteria (NONE) /hpf SARS-CoV-2 Ag (Rap id) (Negative) 04/01/20 Range/Units 13:10 WBC (4.0-10.0) 10^3/ uL RBC (4.1-5.3) 10^6/u L Hgb (11.5-15.3) g/dL Hct (37.0-47.0) % MCV (81-99) fL MCH (28.0-34.0) pg MCHC (30.0-36.0) g/dL RDW (12.1-15.1) % Plt Count (130-400) 10^3/c mm MPV (7.4-10.4) fL Neut % (Auto) % Lymph % (Auto) % Moore % (Auto) % Eos % (Auto) % Baso % (Auto) % Neut # (Auto) (1.8-7.7) 10^3/u L Lymph # (Auto) (0.8-4.8) 10^3/u L Moore # (Auto) (0.2-0.9) 10^3/u L Eos # (Auto) (0.0-0.8) 10^3/u L Baso # (Auto) (0.0-0.1) 10^3/u L Nucleated RBC % (a uto) % Nucleated RBCs # /100WBC Sodium (136-145) mmol/L Potassium (3.5-5.1) mmol/L Chloride (98-107) mmol/L Carbon Dioxide (22-29) mmol/L Anion Gap (5-19) BUN (8-23) mg/dL Creatinine (0.5-0.9) mg/dL GFR Calculation Glucose (65-115) mg/dL POC Glucose 227 (70-110) mg/dL Estimat Average Gl ucose Hemoglobin A1c (4.0-6.0) % Calculated Osmolal ity (285-295) mOsm/k g Calcium (8.5-10.5) mg/dL Magnesium (1.7-2.3) mg/dL Total Bilirubin (0.15-1.2) mg/dL AST (0-32) U/L ALT (0-33) U/L Alkaline Phosphata se (35-105) IU/L Troponin T Gen 5 n g/L (0-10) ng/L Troponin T Baselin e (0-10) ng/L Troponin T 120 Min [place] (0-10) ng/L Delta Troponin T (0-10) ABS# NT-Pro-B Natriuret Pep (0-450) pg/mL Total Protein (6.6-8.7) g/dL Albumin (3.5-5.2) g/dL Globulin (1.3-4.6) g/dL Triglycerides (0-150) mg/dL Cholesterol (0-200) mg/dL LDL Cholesterol, C alc (50-129) mg/dL HDL Cholesterol (60-100) mg/dL LDL/HDL Ratio (0.00-3.22) RATI O Cholesterol/HDL Ra wilfrid (0.0-4.40) mg/dL Lipase (13-60) U/L Procalcitonin (0-0.5) ng/mL Urine Color (Yellow) Urine Appearance (CLEAR) Urine pH (5-7) Ur Specific Gravit y (1.005-1.030) Urine Protein (Negative) Urine Glucose (UA) (Normal) Urine Ketones (Negative) Urine Blood (Negative) Urine Nitrate (Negative) Urine Bilirubin (Negative) Urine Urobilinogen (Negative) mg/dL Ur Leukocyte Hailey ase (Negative) Urine RBC (0-2) /hpf Urine WBC (0-5) /hpf Ur Squamous Epith Cells (0-5) /hpf Amorphous Sediment Urine Bacteria (NONE) /hpf SARS-CoV-2 Ag (Rap id) (Negative) Discharge Plan Discharge Patient Disposition: Placed in Observation Admit Provider: Ortega Rosario Clinical Impression: Chest pain Qualifiers: Chest pain type: unspecified Qualified Code(s): R07.9 - Chest pain, unspecified Condition: Stable Referrals: Blossom Barney MD [Primary Care Provider] - Discharge Date/Time: 03/31/20 21:57 Coding Level of Care Code ED Test Case Developer for Caleb Hollingsworth
[2020-03-31 16:25] LABS: Alanine Aminotransferase 10 U/L (0-33); Albumin Level 3.4 g/dL (3.5-5.2); Alkaline Phosphatase 102 IU/L (35-105); Anion Gap 15.5 (5-19); Aspartate Amino Transferase 10 U/L (0-32); Blood Urea Nitrogen 24 mg/dL (8-23); Calcium 9.5 mg/dL (8.5-10.5); Carbon Dioxide 26 mmol/L (22-29); Chloride 99 mmol/L (98-107); Globulin 4.4 g/dL (1.3-4.6); Glucose 150 mg/dL (65-115); Lipase 16 U/L (13-60); NT Pro B Type Natriuretic Pept 276 pg/mL (0-450); Osmolality Calculated 289 mOsm/kg (285-295); Potassium 4.5 mmol/L (3.5-5.1); Sodium 136 mmol/L (136-145); Total Bilirubin 0.3 mg/dL (0.15-1.2); Total Protein 7.8 g/dL (6.6-8.7)
[2020-03-31 16:26] LABS: Add Urine Microscopic? YES; Bilirubin Urine Neg (Negative); Blood Urine Neg (Negative); Glucose Urine UA Norm (Normal); Ketones Urine Negative (Negative); Leukocyte Esterase Urine Negative (Negative); Nitrate Urine Negative (Negative); Protein Urine 1+ (Negative); Specific Gravity, Urine 1.015 (1.005-1.030); Urine Appearance Clear (CLEAR); Urine Color Yellow (Yellow); Urobilinogen Urine Neg (Negative); pH Urine 5 (5-7)
[2020-03-31 16:32] LABS: Add Urine Culture? Yes; Bacteria Urine 1+ /hpf; RBC Urine 0-4 /hpf (0-2); Squamous Epithelial Cell Urine 0-4 /hpf (0-5)
[2020-03-31] MEDS: fentaNYL 50 mcg/mL INJ 2mL 100 MCG IVP ×2 (16:32→19:37)
[2020-03-31] MEDS: iodixanol 320 mg/mL 100mL Btl IV (17:17)
--- NOTE | 2020-03-31 17:24 | ECG_ITS ---
[facility] Test Date: 2020-03-31 Pat Name: Adina Gracia Department: Room: Gender: Female Records Management Director: : 1945 Requested By: Mary Jo Orlando Order Number: [id number] Reading MD: DEX BAUTISTA Measurements Intervals [place] Rate: 66 P: 94 [place]: 205 QRS: 37 QRSD: 105 T: 73 QT: 382 QTc: 402 Interpretive Statements SINUS RHYTHM Compared to ECG 03/31/2020 14:34:25 T-wave abnormality no longer present Electronically Signed On 03-31-2020 19:35:58 CIVIL ENGINEER by DEX BAUTISTA [id number]
[2020-03-31 17:59] LABS: Troponin 5 2HR 10.66 ng/L (0-10)
[2020-03-31 18:03] LABS: Troponin 5 2HR Delta -0.34 ABS# (0-10)
[2020-03-31 19:33] LABS: SARS Covid-2 Antigen Negative (Negative)
--- NOTE | 2020-03-31 20:06 | P.HP_ITS ---
Providers/Chief Complaint Admitting Physician: Ortega Rosario Primary Care Provider: Blossom Barney MD Chief Complaint: CP History of Present Illness 73-year-old female with a past medical history significant for rheumatoid arthritis, gout, chronic steroid therapy,unclear history of lymphoma, hypertension, dyslipidemia, diabetes mellitus and chronic left shoulder pain due to rotator cuff who presented to the hospital with left-sided chest pain. Patient stated initially this was a dull ache however in the past a has become pleuritic in nature at times radiating to left upper extremity Worsens with deep inspiration and improved with lying down. Noted mild respiratory di stress. States her whole left-sided chest wall feel sore. laboratory workup on arrival showed a WBC of 18.2, hemoglobin 9.0, hematocrit 31.2 and a platelet count of 439. sodium 136, potassium 4.5, chloride 99, bicarb 26, BUN 24 and creatinine of 1.0. troponin T baseline of 11 with repeat of 10.66 and adult of -0.34. Urinalysis was negative for leukocyte esterase or nitrates. COVID-19 antigen negative. Chest x-ray did not show any acute abnormality. CTA of chest showed increased left basilar discoid atelectasis or scarring and severe calcified coronary artery disease without any evidence of pulmonary embolism. Initial EKG did not show any evidence of acute ischemia. Admitted for further work up. Review of Systems General: Reports: 10 or more systems reviewed and unremarkable except in HPI and below Medications/Allergies Home Medications Medication Instructions Recorded Confirmed Last Taken Type diclofenac sodium 1 % topical gel 2 - 4 gm TOPICAL BID PRN 08/31/19 03/31/20 Unknown History duloxetine 60 mg capsule,delayed 60 mg PO DAILY 08/31/19 03/31/20 03/30/20 History release insulin aspart U-100 100 unit/mL 20 unit SUBCUT TID ml 08/31/19 03/31/20 03/31/20 08:00 History subcutaneous solution 30 UNITS insulin degludec 100 unit/mL (3 50 unit SUBCUT DAILY 08/31/19 03/31/20 03/31/20 History mL) subcutaneous pen pravastatin 20 mg tablet 20 mg PO DAILY 08/31/19 03/31/20 03/30/20 History prednisone 5 mg tablet 5 mg PO DAILY #30 tab 01/08/20 03/31/20 Unknown Rx Vitamin B-2 1 tab PO DAILY 03/31/20 03/31/20 Unknown History allopurinol 100 mg PO BID 03/31/20 03/31/20 03/31/20 History aspirin 81 mg PO DAILY PRN 03/31/20 03/31/20 Unknown History losartan 100 mg PO DAILY 03/31/20 03/31/20 03/30/20 History metformin 500 mg PO BID 03/31/20 03/31/20 03/31/20 History metoprolol tartrate 50 mg PO BID 03/31/20 03/31/20 03/31/20 History turmeric 1 tab PO DAILY 03/31/20 03/31/20 Unknown History Allergies Allergy/AdvReac Type Severity Reaction Status Date / Time latex Allergy Mild rash Verified 03/31/20 16:15 Penicillins Allergy Mild rash Verified 03/31/20 16:15 Sulfa (Sulfonamide Allergy Mild rash Verified 03/31/20 16:15 Antibiotics) sulindac Allergy Mild rash Verified 03/31/20 16:15 naproxen Allergy rash Verified 03/31/20 16:15 PFSH Acute PFSH: Medical History (Updated 03/31/20 @ 20:07 by Golden Yepez DO) Gout High risk medication use Immunization counseling Osteoarthritis Seronegative rheumatoid arthritis Seronegative rheumatoid arthritis of both hands Surgical History H/O total knee replacement History of arthroscopic knee surgery History of carpal tunnel surgery History of hip replacement History of hysterectomy History of laparoscopic cholecystectomy History of shoulder surgery History of thumb surgery Family History Other Asthma Diabetes Hypertension Denies family history of Systemic lupus erythematosus, unspecified Rheumatoid arthritis Social History Smoking and tobacco status: never smoked Alcohol intake: never History of recent travel: No Vitals/I&O/Wt Last Vital Signs Temp 98.4 F 03/31/20 21:54 Pulse 96 03/31/20 21:57 Resp 18 03/31/20 21:57 BP 180/90 03/31/20 21:57 Pulse Ox 97 03/31/20 21:57 Weight last 48 hrs Weight 97.522 kg Physical Exam Narrative: EXAM NARRATIVE: General- mild distress due to chest pain new line HEENT -grossly unremarkable Chest- tender to palpation on left chest wall Respiratory -clear to auscultation bilaterally CVS -regular rate rhythm no obvious murmurs Abdomen-soft non-tender non-distended Extremities-no edema Data : 03/31/20 15:40 03/31/20 15:40 A&P Assessment and plan (1) Chest pain: Status: Acute Qualifiers: Chest pain type: unspecified Qualified Code(s): R07.9 - Chest pain, unspecified (2) Seronegative rheumatoid arthritis: Status: Acute Chest pain - Reproducible on exam - Monitor on telemetry - Troponin T delta - 0.34 - Trend not consistent with acute ischemia - NPO at midnight - Start Aspirin 325 mg PO daily - Continue statin - Hold beta-niru - Lexiscan in am - Consider cardiology consult - Lipid panel in am - ECHO - Possible pericarditis - ESR,CRP in am GI ppx - Protonix 40 mg PO daily DVT ppx - Lovenox 40 mg SQ daily Addtional Medical Problems Steroid incuded leukocytosis Hypertension Dylipidemia Diabetes Mellitus Rheumatoid / OA / Gout Chronic prednisone therapy Unclear h/o lymphoma s/p chemo Chronic Left shoulder pain Attestations Medical Necessity Statement*: Anticipate less than 2 midnight stay in hospital for evaluation and treatment of chest pain. Time Spent in Patient Care: Greater than 35 minutes Coding Level of Care Code Acute Regulator Inspector for Caleb Hollingsworth Diagnoses Chest pain R07.9 Chest pain type: unspecified Seronegative rheumatoid arthritis M06.00
--- NOTE | 2020-03-31 21:59 | ECG_ITS ---
[facility] Test Date: 2020-03-31 Pat Name: Adina Gracia Department: Room: 253 Gender: Female Student Financial Services Counselor: : 1945 Requested By: Ortega Rosario Order Number: [id number] Reading MD: DEX BAUTISTA Measurements Intervals [place] Rate: 82 P: [place]: -1 QRS: 26 QRSD: 101 T: 89 QT: 393 QTc: 461 Interpretive Statements ATRIAL FIBRILLATION NONSPECIFIC T-WAVE ABNORMALITY ABNORMAL RHYTHM ECG Compared to ECG 03/31/2020 17:46:13 T-wave abnormality now present Sinus rhythm no longer present Electronically Signed On 04-01-2020 20:15:45 WINDOW AND DOOR INSTALLER by DEX BAUTISTA [id number]
[2020-04-01] VITALS (11 sets, daily range): BP systolic 162–181; BP diastolic 55–86; PULSE 69–98; RESP 15–20; TEMP 36.3–37; O2SAT 94–99
--- NOTE | 2020-04-01 00:05 | NMCV_ITS ---
NM ramin perf SPECT r/s* [id number] Adina Gracia Age: 74 Gender: F : 1945 Exam Date: 04/01/2020 00:05 Ordering Phys: Ortega Rosario MD Technologist: CYRUS Palafox Exam Location: [facility] Indications: CHEST PAIN STRESS TEST Please see separate stress test report in [facility] for full findings IMAGE PROTOCOL Rest/Stress 1 Lexiscan Day Radiopharmaceutical Dose (mCi) Administration Site Administered by Rest: Tc-99m 10.8 IV CYRUS Palafox Sestamibi Stress:Tc-99m 32.3 IV CYRUS Rangel Sestamibi Rest: 01-Apr-2020 60 Discovery 630 Stress: 01-Apr-2020 30 Discovery 630 0.4mg Lexiscan. Supine position only as patient was unable to lay prone. SPECT RESULTS Technical Quality: Good Raw Data Analysis: Normal Image Corrections: No attenuation or motion correction applied Summed Stress Score: 8 Summed Rest Score: 1 Summed Difference Score: 7 PERFUSION FINDINGS Medium sized, moderate in intensity mostly reversible perfusion defect is noted in apical, apical lateral and lateral major. FUNCTIONAL RESULTS (calculated via Gated SPECT) Stress Image LV EF (%): 73 Stress EDV (mL):83 TID: 0.85 Stress ESV (mL):22 FUNCTIONAL FINDINGS: There is normal left ventricular systolic function. IMPRESSIONS 1. Medium sized, moderate in intensity intensity mostly reversible perfusion defect is noted in apical, apical lateral and lateral major. This likely represents ischemia in left circumflex/LAD territory. 2. Normal LV systolic function. Karlo Hughes MD (Electronically Signed) Final Date: 01 April 2020 11:59 S
--- NOTE | 2020-04-01 00:05 | ECG_ITS ---
[facility] Test Date: 2020-04-01 Pat Name: Adina Gracia Department: Room: 253 Gender: Female Human Services Program Specialist: Virginia Burketter : 1945 Requested By: Ortega Rosario Order Number: [id number] Alessia MD: Karlo Hughes M.D. Interpretive Statements NAME OF STUDY: LEXISCAN SESTAMIBI STRESS TEST INDICATION: [Chest Pain] Procedure: At the baseline, the blood pressure was 155/72 mmHg, heart rate of 79 bpm. The electrocardiogram showed normal sinus rhythm with normal axis with normal ST and T's. The Lexiscan was infused over a period of 20 seconds. A total of 0.4 mg of Lexiscan was infused. The stress phase was continued for a total of 5 minutes. Heart rate at the end of stress phase was 89 bpm, with blood pressure 185/67 mmHg. The EKG at the peak infusion revealed sinus rhythm with no significant ST T wave changes. Sestamibi was injected 20 seconds after the Lexiscan was infused. Blood pressure at the end of recovery phase was 181/49 mmHg, with a heart rate of 90 bpm. Conclusion: 1. Normal EKG response to Lexiscan infusion. 2. No Lexiscan induced chest pain or cardiac arrhythmia. 3. Normal blood pressure and heart rate response. 4. Sestamibi/sestamibi perfusion scan pending; see separate report. Electronically Signed On 04-08-2020 10:12:10 STUDY LEAD by Karlo Hughes M.D. [id number]
[2020-04-01] MEDS: sodium chloride 0.9% 1,000 ML 75 ML IV ×2 (00:36→13:24)
[2020-04-01] MEDS: HYDROcodone-acetaminophen 5-325 mg Tablet 1 TAB PO ×2 (00:37→05:48)
[2020-04-01 06:34] LABS: Estmated Average Glucose 214; Hemoglobin A1C 9.1 % (4.0-6.0)
[2020-04-01 06:42] LABS: Glucose Point of Care 166 mg/dL (70-110)
[2020-04-01 06:43] LABS: Blood Urea Nitrogen 24 mg/dL (8-23); Calcium 9.4 mg/dL (8.5-10.5); Carbon Dioxide 28 mmol/L (22-29); Chloride 102 mmol/L (98-107); Glucose 161 mg/dL (65-115); Magnesium 1.4 mg/dL (1.7-2.3); Osmolality Calculated 294 mOsm/kg (285-295); Sodium 138 mmol/L (136-145)
[2020-04-01 06:45] LABS: Troponin T (5th) Once 12 ng/L (0-10)
[2020-04-01 06:54] LABS: Procalcitonin 0.24 ng/mL (0-0.5)
[2020-04-01 07:05] LABS: Chol HDL Ratio 2.39 mg/dL (0.0-4.40); Cholesterol 98 mg/dL (0-200); HDL Cholesterol 41 mg/dL (60-100); LDL Cholesterol Calculated 37 mg/dL (50-129); Triglycerides 99 mg/dL (0-150)
[2020-04-01] MEDS: regadenoson 0.4 Mg/5 ml Syringe IVP (09:35)
--- NOTE | 2020-04-01 10:07 | PC.CHAP ---
Pastoral Care Encounter/Spiritual Assessment Type of Contact [] Declined tool grinder visit [] Patient/Family/Request visit [] Outpatient visit [] Follow-up visit [] Physician referral [] Code/Alert [] Routine visit [] Staff referral [] Actively dying [] Patient sleeping [] Family support [] [x] Out of room [] Palliative care [] [] Receiving care in room [] Pre-surgical visit [] Trauma [] Long length of stay [] ICU visit [x] Other: testing Relational/Emotional Strength [] Patient feels connected with others/family/visitors/staff [] Distress [] Loneliness/isolation [] Abandonment Spirituality of Patient [] Person of Gracie [] Attends Hoahaoism of their Gracie [] Believes in Prayer [] Reads Bible or Zoroastrianism materials [] There are Spiritual issues to be addressed Sandstone Inspector Repairer Interventions [x] Prayer [] Active listening [] Non-anxious presence [] Spiritual/emotional support [] Crisis/trauma care [] Spiritual counseling [] Bereavement support [] Provided bereavement packet [] Provided Bible/devotional materials [] Provided toy/stuffed animal, coloring book to patient or family member [] Provided Communion [] Anointing/[place] [] Salvation [x] Completed spiritual assessment [] Other: Impact on Illness or Injury [] Angry [] Fearful [] Anxious [] Often cries [] Exhaustion [] Unable to work [] Unable to attend gnosticist [] Unable to walk/stand [] Unable to read [] Unable to drive [] Unable to eat/drink [] Unable to sleep [] Unable to be with family [] Patient intubated [] Other: Summary Time spent with patient
[2020-04-01 13:13] LABS: Glucose Point of Care 227 mg/dL (70-110)
[2020-04-01 13:13] LABS: Glucose Point of Care 211 mg/dL (70-110)
[2020-04-01] MEDS: metoprolol tartrate 50 mg Tablet PO ×2 (13:23→18:03)
[2020-04-01] MEDS: losartan 50 mg Tablet 100 MG PO (13:23)
--- NOTE | 2020-04-01 16:46 | PM.CONSULT ---
Providers/Reason For Consult Consulting Physican/Specialty*: Miguel Mcclure MD/cardiology Reason for Consult*: Chest pain and abnormal myocardial perfusion imaging Attending Physician: Ortega Rosario Primary Care Provider: Blossom Barney MD History of Present Illness History of Present Illness Adina Gracia is a 74 year old female, with multiple risk factors for coronary disease, is admitted to hospital through the emergency room where she presented with complaints of left sided chest pain and shortness of breath. She had a myocardial perfusion imaging today which was abnormal. Cardiology consult is requested for further cardiac evaluation recommendations. This patient has a history of high blood pressure, type 2 diabetes and dyslipidemia for the last more than 20 years. She has a history of chronic shoulder pains bilaterally. She had surgical intervention of the right shoulder. She used to get pain in the left shoulder intermittently. Yesterday morning, she woke up with some severe pain in the left shoulder, radiating down to the chest anteriorly and posteriorly. She had associated shortness of breath. Even though she had shoulder pains in the past, she never had the pain that severe and associated shortness of breath. She came to the emergency room because of this. She had no associated nausea vomiting. No sweating or palpitations. No dizziness or syncopal episodes. The severe pain in the shoulder gradually went away. However she continued to have some pleuritic type of pain in the left upper part of the chest and shoulder. This pain seems to be slowly improving. She also has significant improvement in the shortness of breath. She has no fever, chills or cough. Patient has no previous history for coronary disease or myocardial infarction. Her diabetes seems to be fairly under control. She has a family history for premature atherosclerotic heart disease. Her sister had a myocardial infarction in her 50s and of the same. She has a strong family history for CVA-mother grandmother, grandfather and a niece had CVA. She never had any stroke but has some and numbness of the extremities She is known to have rheumatoid arthritis, osteoarthritis, gouty arthritis and degenerative joint disease. She had multiple surgeries in the past-including shoulder surgery, carpal tunnel, hip, knee, cholecystectomy, appendectomy, hysterectomy and hernia repair. Review of Systems Narrative: CONSTITUTIONAL: No fever or chills. EYES: No blurring of vision or other visual disturbances lately. ENT: No hoarseness of voice, auditory disturbances or sore throat. CARDIOVASCULAR: As mentioned above. RESPIRATORY: No significant cough. GASTROINTESTINAL: No hematemesis or melena. GENITOURINARY: No dysuria or hematuria. INTEGUMENTARY: No skin rashes or history of skin cancer. NEURO: No transient ischemic attacks or amaurosis. PSYCHIATRIC: No history of psychosis or major depression. HEMATOLOGIC: No bleeding disorders or significant anemia. ENDOCRINE: History of type 2 diabetes MUSCULOSKELETAL: Extensive musculoskeletal disorders as mentioned above. ALLERGY/IMMUNOLOGY: As mentioned above. Meds/Allergies Home Medications and Allergies Home Medications Medication Instructions Recorded Confirmed Last Taken Type diclofenac sodium 1 % topical gel 2 - 4 gm TOPICAL BID PRN 08/31/19 03/31/20 Unknown History duloxetine 60 mg capsule,delayed 60 mg PO DAILY 08/31/19 03/31/20 03/30/20 History release insulin aspart U-100 100 unit/mL 20 unit SUBCUT TID ml 08/31/19 03/31/20 03/31/20 08:00 History subcutaneous solution 30 UNITS insulin degludec 100 unit/mL (3 50 unit SUBCUT DAILY 08/31/19 03/31/20 03/31/20 History mL) subcutaneous pen pravastatin 20 mg tablet 20 mg PO DAILY 08/31/19 03/31/20 03/30/20 History prednisone 5 mg tablet 5 mg PO DAILY #30 tab 01/08/20 03/31/20 Unknown Rx Vitamin B-2 1 tab PO DAILY 03/31/20 03/31/20 Unknown History allopurinol 100 mg PO BID 03/31/20 03/31/20 03/31/20 History aspirin 81 mg PO DAILY PRN 03/31/20 03/31/20 Unknown History losartan 100 mg PO DAILY 03/31/20 03/31/20 03/30/20 History metformin 500 mg PO BID 03/31/20 03/31/20 03/31/20 History metoprolol tartrate 50 mg PO BID 03/31/20 03/31/20 03/31/20 History turmeric 1 tab PO DAILY 03/31/20 03/31/20 Unknown History Allergies Allergy/AdvReac Type Severity Reaction Status Date / Time latex Allergy Mild rash Verified 03/31/20 16:15 Penicillins Allergy Mild rash Verified 03/31/20 16:15 Sulfa (Sulfonamide Allergy Mild rash Verified 03/31/20 16:15 Antibiotics) sulindac Allergy Mild rash Verified 03/31/20 16:15 naproxen Allergy rash Verified 03/31/20 16:15 Current Medications Current Medications Generic Name Dose Route Start Last Admin Trade Name Freq PRN Reason Stop Dose Admin Hydrocodone Bitart/Acetaminophen 1 tab 03/31/20 22:44 04/01/20 05:48 [place] 5-325 Mg PO 1 tab Q4H PRN Administration MODERATE TO SEVERE PAIN Sodium Chloride 1,000 mls @ 75 mls/hr 03/31/20 22:45 04/01/20 13:24 Sodium Chloride 0.9% IV 75 mls/hr .[id number] KIMI Administration Insulin Aspart 0 unit 04/01/20 08:00 04/01/20 13:23 Novolog SUBCUT 8 unit WM&BEDTIME KIMI Administration Protocol PFSH Acute PFSH: Medical History (Updated 04/01/20 @ 20:07 by Dinesh Mcclure MD) Atypical chest pain Dyslipidemia Gout High risk medication use Immunization counseling Osteoarthritis Seronegative rheumatoid arthritis Seronegative rheumatoid arthritis of both hands Surgical History H/O total knee replacement History of arthroscopic knee surgery History of carpal tunnel surgery History of hip replacement History of hysterectomy History of laparoscopic cholecystectomy History of shoulder surgery History of thumb surgery Family History (Updated 04/01/20 @ 20:11 by Dinesh Mcclure MD) Sister CAD (coronary artery disease) Heart attack in her 50s and of the same. Mother Stroke Strong family history for CVA. Grandfather, mother, niece all had a CVA Other Asthma Diabetes Hypertension Denies family history of Systemic lupus erythematosus, unspecified Rheumatoid arthritis Social History Smoking and tobacco status: never smoked Alcohol intake: never History of recent travel: No Vitals/I&O/Wt Last Vital Signs Temp 98.2 F 04/01/20 15:56 Pulse 71 04/01/20 15:56 Resp 20 H 04/01/20 15:56 BP 169/69 04/01/20 15:56 Pulse Ox 99 04/01/20 15:56 04/01/20 04/01/20 04/01/20 06:59 14:59 22:59 Intake Total 1200 / 1200 Balance 1200 / 1200 Weight last 48 hrs Weight 215 lb Physical Exam Narrative: EXAM NARRATIVE: GENERAL: The patient is alert and oriented times three. Not in any acute distress. Obese HEENT: No significant pallor, icterus or lymphadenopathy. The pupils are symmetrical oral cavity: There are no mucous membrane lesions. Funduscopic examination: The fundus is not visualized NECK: Trachea appears to be central. No masses noted. No JVD or thyromegaly appreciated. No carotid bruit. RESPIRATORY: Chest is symmetrical. No intercostals muscle retraction or any accessory muscle activation. There is no chest wall tenderness. Breath sounds are heard bilaterally. No rales or rhonchi heard. No evidence of any consolidation. Diminished intensity of breath sounds in the bases BREASTS: Deferred. HEART: The PMI could not be palpated no palpable precordial events. S1 and S2 are normal. No S3 or S4 heard. No pericardial rub or any click heard. ABDOMEN: Abdomen is obese. No vessel pulsations or distention. No tenderness. No organomegaly appreciated. No abdominal bruit. Bowel sounds are normally heard. : Deferred. RECTAL: Deferred. LYMPHATIC: No lymphadenopathy noted in the neck or groin. EXTREMITIES: 1+ edema both lower extremities with no cyanosis MUSCULOSKELETAL: No acute joint deformities or swelling SKIN: There are no significant scars or skin rash noted. NEUROPSYCHIATRIC: The patient is alert and oriented x3. Appears to be in a good mood. The higher functions are grossly within normal limits. No tremors or rigidity noted. Data Labs: Other Labs: Laboratory Last Values WBC 18.2 10^3/uL (4.0 -10.0) H 03/31/20 15:40 RBC 3.45 10^6/uL (4.1 -5.3) L 03/31/20 15:40 Hgb 9.0 g/dL (11.5-15 .3) L 03/31/20 15:40 Hct 31.2 % (37.0-47.0 ) L 03/31/20 15:40 MCV 90.4 fL (81-99) 03/31/20 15:40 MCH 26.1 pg (28.0-34. 0) L 03/31/20 15:40 MCHC 28.8 g/dL (30.0-3 6.0) L 03/31/20 15:40 RDW 16.9 % (12.1-15.1 ) H 03/31/20 15:40 Plt Count 439 10^3/cmm (130 -400) H 03/31/20 15:40 MPV 10.3 fL (7.4-10.4 ) 03/31/20 15:40 Neut % (Auto) 78.6 % 03/31/20 15:40 Lymph % (Auto) 10.6 % 03/31/20 15:40 [place] % (Auto) 6.8 % 03/31/20 15:40 Eos % (Auto) 2.0 % 03/31/20 15:40 Baso % (Auto) 0.4 % 03/31/20 15:40 Neut # (Auto) 14.32 10^3/uL (1. 8-7.7) H 03/31/20 15:40 Lymph # (Auto) 1.9 10^3/uL (0.8- 4.8) 03/31/20 15:40 [place] # (Auto) 1.2 10^3/uL (0.2- 0.9) H 03/31/20 15:40 Eos # (Auto) 0.4 10^3/uL (0.0- 0.8) 03/31/20 15:40 Baso # (Auto) 0.1 10^3/uL (0.0- 0.1) 03/31/20 15:40 Nucleated RBC % (a uto) 0 % 03/31/20 15:40 Nucleated RBCs # 0.0 /100WBC 03/31/20 15:40 Sodium 138 mmol/L (136-1 45) 04/01/20 05:44 Potassium 4.0 mmol/L (3.5-5 .1) 04/01/20 05:44 Chloride 102 mmol/L (98-10 7) 04/01/20 05:44 Carbon Dioxide 28 mmol/L (22-29) 04/01/20 05:44 Anion Gap 12.0 (5-19) 04/01/20 05:44 BUN 24 mg/dL (8-23) H 04/01/20 05:44 Creatinine 0.9 mg/dL (0.5-0. 9) 04/01/20 05:44 GFR Calculation Not Reportable 04/01/20 05:44 Glucose 161 mg/dL (65-115 ) H 04/01/20 05:44 POC Glucose 227 mg/dL (70-110 ) 04/01/20 13:10 Estimat Average Gl ucose 214 04/01/20 05:44 Hemoglobin A1c 9.1 % (4.0-6.0) H 04/01/20 05:44 Calculated Osmolal ity 294 mOsm/kg (285- 295) 04/01/20 05:44 Calcium 9.4 mg/dL (8.5-10 .5) 04/01/20 05:44 Magnesium 1.4 mg/dL (1.7-2. 3) L 04/01/20 05:44 Total Bilirubin 0.3 mg/dL (0.15-1 .2) 03/31/20 15:40 AST 10 U/L (0-32) 03/31/20 15:40 ALT 10 U/L (0-33) 03/31/20 15:40 Alkaline Phosphata se 102 IU/L (35-105) 03/31/20 15:40 Troponin T Gen 5 n g/L 12 ng/L (0-10) H 04/01/20 05:44 Troponin T Baselin e 11 ng/L (0-10) H 03/31/20 15:40 Troponin T 120 Min [place] 10.66 ng/L (0-10) H 03/31/20 17:34 Delta Troponin T -0.34 ABS# (0-10) L 03/31/20 17:34 NT-Pro-B Natriuret Pep 276 pg/mL (0-450) 03/31/20 15:40 Total Protein 7.8 g/dL (6.6-8.7 ) 03/31/20 15:40 Albumin 3.4 g/dL (3.5-5.2 ) L 03/31/20 15:40 Globulin 4.4 g/dL (1.3-4.6 ) 03/31/20 15:40 Triglycerides 99 mg/dL (0-150) 04/01/20 05:44 Cholesterol 98 mg/dL (0-200) 04/01/20 05:44 LDL Cholesterol, C alc 37 mg/dL (50-129) L 04/01/20 05:44 HDL Cholesterol 41 mg/dL (60-100) L 04/01/20 05:44 LDL/HDL Ratio 0.90 RATIO (0.00- 3.22) 04/01/20 05:44 Cholesterol/HDL Ra wilfr[place] 2.39 mg/dL (0.0-4 .40) 04/01/20 05:44 Lipase 16 U/L (13-60) 03/31/20 15:40 Procalcitonin 0.24 ng/mL (0-0.5 ) 04/01/20 05:44 Urine Color Yellow (Yellow) 03/31/20 15:40 Urine Appearance Clear (CLEAR) 03/31/20 15:40 Urine pH 5 (5-7) 03/31/20 15:40 Ur Specific Gravit y 1.015 (1.005-1.0 30) 03/31/20 15:40 Urine Protein 1+ (Negative) H 03/31/20 15:40 Urine Glucose (UA) Norm (Normal) 03/31/20 15:40 Urine Ketones Negative (Negati ve) 03/31/20 15:40 Urine Blood Neg (Negative) 03/31/20 15:40 Urine Nitrate Negative (Negati ve) 03/31/20 15:40 Urine Bilirubin Neg (Negative) 03/31/20 15:40 Urine Urobilinogen Neg mg/dL (Negati ve) 03/31/20 15:40 Ur Leukocyte Hailey ase Negative (Negati ve) 03/31/20 15:40 Urine RBC 0-4 /hpf (0-2) H 03/31/20 15:40 Urine WBC 5-10 /hpf (0-5) H 03/31/20 15:40 Ur Squamous Epith Cells 0-4 /hpf (0-5) H 03/31/20 15:40 Amorphous Sediment Not Reportable 03/31/20 15:40 Urine Bacteria 1+ /hpf (NONE) H 03/31/20 15:40 SARS-CoV-2 Ag (Rap id) Negative (Negati ve) 03/31/20 18:45 CT of the chest revealed 1. Increased left basilar discoid atelectasis and/or scarring. 2. Severe calcified coronary artery disease. The myocardial perfusion imaging revealed 1. Medium sized, moderate in intensity intensity mostly reversible perfusion defect is noted in apical, apical lateral and lateral major. This likely represents ischemia in left circumflex/LAD territory. 2. Normal LV systolic function. Imaging^: CXR: My impression: Chest x-ray revealed Stable right calcified hilar nodes and/or mediastinal nodes and/or lung nodules consistent with old granulomatous disease. Pleural space: Unremarkable. No pleural effusion. No pneumothorax. Heart/Mediastinum: Unremarkable. No cardiomegaly. Bones/joints: Stable postoperative metallic fixation of the cervical spine with or without metallic artifact. Total right shoulder replacement. EKG^: EKG 1: My Interpretation: The EKG revealed normal sinus rhythm with nonspecific T wave changes. Borderline first-degree AV block. Otherwise unremarkable. A&P Assessment and plan (1) Atypical chest pain: The symptoms are somewhat atypical. She may have a musculoskeletal component for the left shoulder pain. However the ischemic pain appears to have improved. Her EKG has no significant changes. No evidence of myocardial injury so far. Her perfusion scan is suggestive of ischemia in the distribution of the left anterior descending artery and the circumflex artery. And her CT of the chest also revealed coronary calcification suggesting atherosclerosis. She has a strong family history for premature atherosclerotic heart disease. I discussed with the patient in detail the implications of the myocardial perfusion imaging and the need for further evaluation. For further evaluation of her coronary status, she requires a cardiac catheterization. The risk of bleeding, hematoma, vascular injury, myocardial infarction, CVA, renal failure and other concomitant complications were explained in detail. Patient understood this well and consented to proceed. We will go ahead and make arrangements to have the angiogram done as early as possible Status: Acute (2) Abnormal nuclear stress test: As mentioned above Status: Acute (3) Type 2 diabetes mellitus: Seems to be under control. May continue on the current treatment measures. Status: Acute Qualifiers: Diabetes mellitus group home insulin use: with superintendent [employer] use Diabetes mellitus complication status: with hyperglycemia Qualified Code(s): E11.65 - Type 2 diabetes mellitus with hyperglycemia; Z79.4 - penitentiary (current) use of insulin (4) Benign essential hypertension with target blood pressure below 140/90: Currently the patient has stage II hypertension. I may start her on amlodipine 2.5 mg p.o. daily and isosorbide mononitrate 30 mg p.o. daily. May continue on all current medications as it is. Status: Acute (5) Dyslipidemia: Patient has been on the lipid-lowering agent Status: Acute (6) Neutrophilic leukocytosis: Most likely related to the steroids. No evidence of infection so far. May repeat the CBC in the morning. Status: Acute (7) SOB (shortness of breath): The etiology of the shortness of breath is not clear. Possibility of LV dysfunction/coronary ischemia are considerations. We may go ahead and do an echocardiogram, to further evaluate. In view of the strong family history of stroke, and nonspecific neurological symptoms, we also may do a carotid Doppler examination to evaluate for any significant carotid artery disease. Status: Acute Additional A&P Information Based on the patient's clinical progress and the results of the above, further recommendations will be made. Thank you for the opportunity to evaluate this patient and make these recommendations Coding Level of Care Code Acute Gold Reclaimer for Caleb Fwd Diagnoses Atypical chest pain R07.89 Abnormal nuclear stress test R94.39 Type 2 diabetes mellitus E11.65; Z79.4 Diabetes mellitus group home insulin use: with group home use Diabetes mellitus complication status: with hyperglycemia Benign essential hypertension with target blood pressure below 140/90 I10 Dyslipidemia E78.5 Neutrophilic leukocytosis D72.9 SOB (shortness of breath) R06.02
[2020-04-01 17:11] LABS: Glucose Point of Care 256 mg/dL (70-110)
[2020-04-01] MEDS: allopurinol 100 mg Tablet PO (18:03)
[2020-04-01 18:37] LABS: Basophils # 0.1 10^3/uL (0.0-0.1); Basophils % 0.4 %; Eosinophils # 0.3 10^3/uL (0.0-0.8); Eosinophils % 1.9 %; Hematocrit 32.2 % (37.0-47.0); Hemoglobin 9.2 g/dL (11.5-15.3); Lymphocytes # 1.7 10^3/uL (0.8-4.8); Lymphocytes % 9.9 %; Mean Corpuscular HGB Conc 28.6 g/dL (30.0-36.0); Mean Corpuscular Hemoglobin 26.4 pg (28.0-34.0); Mean Corpuscular Volume 92.3 fL (81-99); Mean Platelet Volume 10.2 fL (7.4-10.4); Monocytes % 5.8 %; Neutrophils # 13.35 10^3/uL (1.8-7.7); Neutrophils % 80.4 %; Nucleated Red Blood Cells % 0 %; Platelet Count 447 10^3/cmm (130-400); Red Blood Count 3.49 10^6/uL (4.1-5.3); White Blood Count 16.6 10^3/uL (4.0-10.0)
--- NOTE | 2020-04-01 20:40 | PM.PN ---
Subjective Subjective: Interval history: Patient was noted to have reversible ischemia on stress test. Noted improvement in chest pain. no respiratory distress. Vitals/I&O/Wt Last Vital Signs Temp 98.6 F 04/01/20 20:19 Pulse 87 04/01/20 20:19 Resp 18 04/01/20 20:19 BP 181/66 04/01/20 20:19 Pulse Ox 95 04/01/20 20:19 04/01/20 04/01/20 04/01/20 06:59 14:59 22:59 Intake Total 1200 / 1200 240 / 1440 Balance 1200 / 1200 240 / 1440 Weight last 48 hrs Weight 97.522 kg Physical Exam Narrative: EXAM NARRATIVE: General- mild distress due to chest pain new line HEENT -grossly unremarkable Chest- tender to palpation on left chest wall Respiratory -clear to auscultation bilaterally CVS -regular rate rhythm no obvious murmurs Abdomen-soft non-tender non-distended Extremities-no edema Data : 04/01/20 18:27 04/01/20 05:44 Micro: Microbiology 03/31/20 15:40 Urine Culture - Preliminary Urine,Clean Catch Gram Negative Rods A&P Assessment and plan (1) Chest pain: Status: Acute Qualifiers: Chest pain type: unspecified Qualified Code(s): R07.9 - Chest pain, unspecified (2) Seronegative rheumatoid arthritis: Status: Acute Chest pain - Stress test showed reverisble ischemia - Cardiology consulted - Plan for cath in am - Asa/statin orderd - Home meds resumed. GI ppx - Protonix 40 mg PO daily DVT ppx - Lovenox 40 mg SQ daily Addtional Medical Problems Steroid incuded leukocytosis Hypertension Dylipidemia Diabetes Mellitus Rheumatoid / OA / Gout Chronic prednisone therapy Unclear h/o lymphoma s/p chemo Chronic Left shoulder pain Attestations Medical Necessity Statement*: Positive stress will require further hospitaliztion for cardiac cath in am Time Spent in Patient Care: Greater than 35 minutes Coding Level of Care Code Acute Feather Trimmer for g Fwd Diagnoses Chest pain R07.9 Chest pain type: unspecified Seronegative rheumatoid arthritis M06.00
[2020-04-01] MEDS: enoxaparin 40 mg/0.4 mL Syringe SUBCUT (21:03)
[2020-04-01 21:15] LABS: Glucose Point of Care 298 mg/dL (70-110)
--- NOTE | 2020-04-01 22:57 | PC.NURSE ---
TRESIBA Pt is very upset tonight that she was not told that we do not have Tresiba injections for her. Says she could have had someone bring hers in if she had known. Upset and is sure that is why her BS is 298 tonight. Says she will not have cardiac procedure done tomorrow if BS not lower. Tried to reassure and calm pt but still not very happy. Reported to charge nurse
[2020-04-02] VITALS (10 sets, daily range): BP systolic 132–184; BP diastolic 53–78; PULSE 63–82; RESP 16–18; TEMP 36.5–37; O2SAT 92–96
[2020-04-02] MEDS: HYDROcodone-acetaminophen 5-325 mg Tablet 1 TAB PO (00:56)
[2020-04-02 02:42] LABS: Basophils # 0.1 10^3/uL (0.0-0.1); Basophils % 0.5 %; Eosinophils # 0.4 10^3/uL (0.0-0.8); Eosinophils % 2.5 %; Hematocrit 28.5 % (37.0-47.0); Hemoglobin 8.5 g/dL (11.5-15.3); Lymphocytes # 2.7 10^3/uL (0.8-4.8); Lymphocytes % 16.6 %; Mean Corpuscular HGB Conc 29.8 g/dL (30.0-36.0); Mean Corpuscular Hemoglobin 26.6 pg (28.0-34.0); Mean Corpuscular Volume 89.3 fL (81-99); Mean Platelet Volume 10.5 fL (7.4-10.4); Monocytes # 1.3 10^3/uL (0.2-0.9); Neutrophils # 11.54 10^3/uL (1.8-7.7); Neutrophils % 71.3 %; Nucleated Red Blood Cells % 0 %; Platelet Count 444 10^3/cmm (130-400); Red Blood Count 3.19 10^6/uL (4.1-5.3); Red Cell Distribution Width 16.8 % (12.1-15.1); White Blood Count 16.2 10^3/uL (4.0-10.0)
[2020-04-02 03:01] LABS: Anion Gap 13.7 (5-19); Blood Urea Nitrogen 20 mg/dL (8-23); Calcium 9.2 mg/dL (8.5-10.5); Carbon Dioxide 26 mmol/L (22-29); Chloride 101 mmol/L (98-107); Glucose 123 mg/dL (65-115); Osmolality Calculated 288 mOsm/kg (285-295); Potassium 3.7 mmol/L (3.5-5.1); Sodium 137 mmol/L (136-145)
[2020-04-02] MEDS: sodium chloride 0.9% 1,000 ML 75 ML IV (05:04)
--- NOTE | 2020-04-02 05:42 | PC.NURSE ---
SHIFT SUMMARY Rested well with CPAP in place. Up to bathroom several times. IV fluids infusing at 75ml/hr rate. NPO since midnight for cardiac cath procedure scheduled for this morning. Says occ has a pain in left shoulder/chest area but does not last. Says she does not want to take any Nitro pills. Was medicated for headache X1 with po Hydrocodone and had no further c/o. Made her feel better this morning when lab BS result came back and was much better.
--- NOTE | 2020-04-02 06:05 | USCV_ITS ---
Adina Gracia Age: 74 Gender: F : 1945 Exam Date: 04/02/2020 06:13 Ordering Phys: Dinesh Mcclure MD ([email or web address]) Technologist: Calvin Mattson Exam Location: [facility] [place] Indication: CHEST PAIN BP: 169 / 69 HR: 75 Rhythm: Sinus Technical Quality: Fair MEASUREMENTS (Male / Female) Normal Values 2D ECHO LV Diastolic Diameter PLAX 3.8 cm 4.2 - 5.9 / 3.9 - 5.3 cm LV Systolic Diameter PLAX 2.5 cm IVS Diastolic Thickness 1.0 cm 0.6 - 1.0 / 0.6 - 0.9 cm IVS Systolic Thickness 1.4 cm LVPW Diastolic Thickness 1.0 cm 0.6 - 1.0 / 0.6 - 0.9 cm LVPW Systolic Thickness 1.3 cm LVOT Diameter 2.1 cm LV Ejection Fraction 2D Teich 66.2 % LV Ejection Fraction MOD 2C 62.9 % LV Ejection Fraction 2C AL 64.8 % LA Diameter 3.8 cm LA Width 4.0 cm LA Height 4.4 cm RA Width 3.8 cm RA Height 5.0 cm Aorta at Sinotubular Diameter 2.2 cm M-MODE LV Diastolic Diameter MM 5.3 cm 4.2 - 5.9 / 3.9 - 5.3 cm LV Systolic Diameter MM 3.1 cm LV Ejection Fraction MM Teich 72.6 % IVS Diastolic Thickness MM 1.1 cm 0.6 - 1.0 / 0.6 - 0.9 cm IVS Systolic Thickness MM 1.7 cm LVPW Diastolic Thickness MM 1.3 cm 0.6 - 1.0 / 0.6 - 0.9 cm LVPW Systolic Thickness MM 2.1 cm RV Diastolic Diameter MM 1.7 cm Aortic Annulus Diameter 3.5 cm LA Ao Ratio MM 1.3 MV E Point Septal Separation 1.1 cm DOPPLER AV Peak Velocity 110.0 cm/s LVOT Peak Velocity 90.0 cm/s AV Area Cont Eq vti 3.0 cm squared AV Area Cont Eq pk 2.7 cm squared MV Area PHT 5.0 cm squared Mitral E to A Ratio 1.0 MV E' Velocity 57.5 cm/s Mitral E to MV E' Ratio 13.6 Mitral E to LV E' Lateral Ratio 12.1 Mitral E to LV E' Septal Ratio 15.9 TR Peak Velocity 98.0 cm/s TR Peak Gradient 3.8 mmHg TV Peak E Velocity 99.0 cm/s Right Atrial Pressure 3.0 mmHg Pulmonary Artery Systolic Pressu 6.8 mmHg FINDINGS Left Ventricle Normal left ventricular size and systolic function, EF 60 %. Mild left ventricular hypertrophy. Mild hypokinesia of the inferobasal segment.Grade II/IV diastolic dysfunction, moderately elevated filling pressures. Right Ventricle The right ventricle is normal in size and function. Right Atrium The right atrium is normal in size. Left Atrium The left atrium is normal in size. Mitral Valve Mitral annular calcification. Trace mitral valve regurgitation. Aortic Valve No gross abnormalities noted. Tricuspid Valve Could not be visualized well . Pulmonic Valve Could not be visualized well Pericardium Normal pericardium without effusion. Aorta Normal ascending aorta dimension. CONCLUSIONS Normal left ventricular size and systolic function, EF 60 %. Mild left ventricular hypertrophy. Mild hypokinesia of the inferobasal segment.Grade II/IV diastolic dysfunction, moderately elevated filling pressures. Mitral annular calcification. Trace mitral valve regurgitation. There is no pericardial effusion. There are no intracardiac masses. Technically difficult study because of the poor ultrasonic window. Dr Dinesh Mcclure MD [facility] (Electronically Signed) Final Date: 02 April 2020 08:27 S
--- NOTE | 2020-04-02 06:05 | USCV_ITS ---
Adina Gracia Age: 74 Gender: F : 1945 Exam Date: 04/02/2020 06:25 Ordering Phys: Dinesh Mcclure MD ([email or web address]) Technologist: Calvin Mattson Exam Location: [facility] [place] Indication: CCA STENOIS Risk Factors: None Previous Vascular Surgery: None Right Brachial BP: / Left Brachial BP: / Right Left Velocity (cm/s) Spectral Plaque Velocity (cm/s) Spectral Plaque Syst/Diast Broadening Syst/Diast Broadening 73.40/ 18.50 Prox CCA 148.60/ 26.40 83.10/ 19.30 Mid CCA 87.20 / 18.40 76.40/ 14.10 Distal CCA 85.70 / 12.20 Hetro 73.90/ 17.20 Prox ICA 193.80/ 36.80 Hetro 101.20/25.30 Mid ICA 174.40/ 38.80 86.00/ 22.30 Distal ICA 170.60/ 29.10 74.20 ECA 97.90 1.22 ICA/CCA 1.30 Antegrade Vertebral Antegrade 84.00/ 18.20 cm/s 34.20/ 8.00 cm/s Tri Subclavian Tri 158.5 145.0 0 0 FINDINGS Mild to moderate diffuse plaques in the right internal carotid artery and bifurcation. Moderate to heavy heterogeneous plaques in the left ICA and bifurcation Intimal thickening in the common carotid arteries bilaterally Antegrade flow in the vertebral arteries bilaterally Normal Doppler flow velocities in the external carotid arteries bilaterally CONCLUSIONS Moderate to heavy heterogeneous plaques in the left ICA and bifurcation with velocity elevation consistent with 50-79% stenosis. Mild to moderate diffuse plaques in the right internal carotid artery and bifurcationwith velocity elevation consistent with 16-49% stenosis. No previous studies are available for comparison. Dr Dinesh Mcclure MD [facility] (Electronically Signed) Final Date: 02 April 2020 08:33 S
[2020-04-02 06:40] LABS: Glucose Point of Care 154 mg/dL (70-110)
--- NOTE | 2020-04-02 06:55 | PC.NURSE ---
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 For now she can have a light breakfast and be NPO again afterwards
--- NOTE | 2020-04-02 07:36 | PM.PN ---
Subjective Subjective: Interval history: Patient complains of feeling somewhat tired. Denies any chest pain or palpitations. Her hemoglobin has dropped to 8.5 today. Denies any fever or chills. No cough. Medications: Reviewed: Yes Medication Review Details: Current Medications Acetaminophen (Tylenol) 650 mg PO Q6H PRN PRN Reason: Mild/Mod Pain Or Temp >/= 101 Hydrocodone Bitart/Acetaminophen (Dixon 5-325 Mg) 1 tab PO Q4H PRN PRN Reason: MODERATE TO SEVERE PAIN Last Admin: 04/02/20 00:56 Dose: 1 tab Documented by: Allopurinol (Zyloprim) 100 mg PO BID [facility] Last Admin: 04/01/20 18:03 Dose: 100 mg Documented by: Aspirin (Aspirin) 325 mg PO DAILY [facility] Atorvastatin Calcium (Lipitor) 80 mg PO DAILY [facility] Dextrose (D50w) 25 ml IVP ONCE PRN; Protocol PRN Reason: hypoglycemia protocol Dextrose (D50w) 50 ml IVP PRN PRN; Protocol PRN Reason: hypoglycemia protocol Duloxetine HCl (Cymbalta) 60 mg PO DAILY [facility] Enoxaparin Sodium (Lovenox) 40 mg SUBCUT Q24H [facility] Last Admin: 04/01/20 21:03 Dose: 40 mg Documented by: Glucagon (Glucagen) 1 mg IM ONCE PRN; Protocol PRN Reason: Adult Acute Hypoglycemia Prot. Sodium Chloride (Sodium Chloride 0.9%) 1,000 mls @ 75 mls/hr IV .[id number] [facility] Last Admin: 04/02/20 05:04 Dose: 75 mls/hr Documented by: Dextrose (D5w) 500 mls @ 100 mls/hr IV ONCE PRN; Protocol PRN Reason: Adult Acute Hypoglycemia Prot Sodium Chloride (Sodium Chloride 0.9%) 1,000 mls @ 50 mls/hr IV .Q20H ONE Stop: 04/02/20 14:29 Insulin Aspart (Novolog) 0 unit SUBCUT WM&BEDTIME [facility]; Protocol Last Admin: 04/01/20 21:01 Dose: 10 unit Documented by: Lanolin (Lanolin Oint) 1 applic TOPICAL PRN PRN PRN Reason: DRYNESS Losartan Potassium (Cozaar) 100 mg PO DAILY [facility] Metoprolol Tartrate (Lopressor) 50 mg PO BID [facility] Last Admin: 04/01/20 18:03 Dose: 50 mg Documented by: Non-Formulary Medication (Insulin Degludec [Tresiba Flextouch U-100]) 50 unit SUBCUT DAILY [facility] Ondansetron HCl (Zofran) 4 mg IVP Q8H PRN PRN Reason: vomiting, or N/V if npo Ondansetron HCl (Zofran) 4 mg IVP Q2M PRN PRN Reason: NAUSEA Prednisone (Prednisone) 5 mg PO DAILY [facility] Vitals/I&O/Wt Last Vital Signs Temp 97.7 F 04/02/20 04:16 Pulse 74 04/02/20 04:16 Resp 18 04/02/20 04:16 BP 162/69 04/02/20 04:16 Pulse Ox 96 04/02/20 04:16 04/01/20 04/02/20 04/02/20 22:59 06:59 14:59 Intake Total 240 / 1440 1200 / 2640 Output Total 100 / 100 Balance 240 / 1440 1100 / 2540 Weight last 48 hrs Weight 215 lb Physical Exam Narrative: EXAM NARRATIVE: GENERAL: The patient is alert and oriented times three. Not in any acute distress. Obese HEENT: Mild pallor, icterus or lymphadenopathy. The pupils are symmetrical oral cavity: There are no mucous membrane lesions. NECK: Trachea appears to be central. No masses noted. No JVD or thyromegaly appreciated. No carotid bruit. RESPIRATORY: Chest is symmetrical. No intercostals muscle retraction or any accessory muscle activation. There is no chest wall tenderness. Breath sounds are heard bilaterally. No rales or rhonchi heard. No evidence of any consolidation. Diminished intensity of breath sounds in the bases BREASTS: Deferred. HEART: The PMI could not be palpated no palpable precordial events. S1 and S2 are normal. No S3 or S4 heard. No pericardial rub or any click heard. ABDOMEN: Abdomen is obese. No vessel pulsations or distention. No tenderness. No organomegaly appreciated. No abdominal bruit. Bowel sounds are normally heard. : Deferred. RECTAL: Deferred. LYMPHATIC: No lymphadenopathy noted in the neck or groin. EXTREMITIES: 1+ edema both lower extremities with no cyanosis MUSCULOSKELETAL: No acute joint deformities or swelling SKIN: There are no significant scars or skin rash noted. NEUROPSYCHIATRIC: The patient is alert and oriented x3. Appears to be in a good mood. The higher functions are grossly within normal limits. No tremors or rigidity noted. Data : 04/02/20 02:17 04/02/20 02:17 Other Labs: Laboratory Last Values WBC 16.2 10^3/uL (4.0-10.0) H 04/02/20 02:17 RBC 3.19 10^6/uL (4.1-5.3) L 04/02/20 02:17 Hgb 8.5 g/dL (11.5-15.3) L 04/02/20 02:17 Hct 28.5 % (37.0-47.0) L 04/02/20 02:17 MCV 89.3 fL (81-99) 04/02/20 02:17 MCH 26.6 pg (28.0-34.0) L 04/02/20 02:17 MCHC 29.8 g/dL (30.0-36.0) L 04/02/20 02:17 RDW 16.8 % (12.1-15.1) H 04/02/20 02:17 Plt Count 444 10^3/cmm (130-400) H 04/02/20 02:17 MPV 10.5 fL (7.4-10.4) H 04/02/20 02:17 Neut % (Auto) 71.3 % 04/02/20 02:17 Lymph % (Auto) 16.6 % 04/02/20 02:17 Jackson % (Auto) 8.0 % 04/02/20 02:17 Eos % (Auto) 2.5 % 04/02/20 02:17 Baso % (Auto) 0.5 % 04/02/20 02:17 Neut # (Auto) 11.54 10^3/uL (1.8-7.7) H 04/02/20 02:17 Lymph # (Auto) 2.7 10^3/uL (0.8-4.8) 04/02/20 02:17 Jackson # (Auto) 1.3 10^3/uL (0.2-0.9) H 04/02/20 02:17 Eos # (Auto) 0.4 10^3/uL (0.0-0.8) 04/02/20 02:17 Baso # (Auto) 0.1 10^3/uL (0.0-0.1) 04/02/20 02:17 Nucleated RBC % (auto) 0 % 04/02/20 02:17 Nucleated RBCs # 0.0 /100WBC 04/02/20 02:17 Sodium 137 mmol/L (136-145) 04/02/20 02:17 Potassium 3.7 mmol/L (3.5-5.1) 04/02/20 02:17 Chloride 101 mmol/L (98-107) 04/02/20 02:17 Carbon Dioxide 26 mmol/L (22-29) 04/02/20 02:17 Anion Gap 13.7 (5-19) 04/02/20 02:17 BUN 20 mg/dL (8-23) 04/02/20 02:17 Creatinine 0.9 mg/dL (0.5-0.9) 04/02/20 02:17 GFR Calculation Not Reportable 04/02/20 02:17 Glucose 123 mg/dL (65-115) H 04/02/20 02:17 POC Glucose 154 mg/dL (70-110) 04/02/20 06:26 Estimat Average Glucose 214 04/01/20 05:44 Hemoglobin A1c 9.1 % (4.0-6.0) H 04/01/20 05:44 Calculated Osmolality 288 mOsm/kg (285-295) 04/02/20 02:17 Calcium 9.2 mg/dL (8.5-10.5) 04/02/20 02:17 Magnesium 1.4 mg/dL (1.7-2.3) L 04/01/20 05:44 Total Bilirubin 0.3 mg/dL (0.15-1.2) 03/31/20 15:40 AST 10 U/L (0-32) 03/31/20 15:40 ALT 10 U/L (0-33) 03/31/20 15:40 Alkaline Phosphatase 102 IU/L (35-105) 03/31/20 15:40 Troponin T Gen 5 ng/L 12 ng/L (0-10) H 04/01/20 05:44 Troponin T Baseline 11 ng/L (0-10) H 03/31/20 15:40 Troponin T 120 Minute 10.66 ng/L (0-10) H 03/31/20 17:34 Delta Troponin T -0.34 ABS# (0-10) L 03/31/20 17:34 NT-Pro-B Natriuret Pep 276 pg/mL (0-450) 03/31/20 15:40 Total Protein 7.8 g/dL (6.6-8.7) 03/31/20 15:40 Albumin 3.4 g/dL (3.5-5.2) L 03/31/20 15:40 Globulin 4.4 g/dL (1.3-4.6) 03/31/20 15:40 Triglycerides 99 mg/dL (0-150) 04/01/20 05:44 Cholesterol 98 mg/dL (0-200) 04/01/20 05:44 LDL Cholesterol, Calc 37 mg/dL (50-129) L 04/01/20 05:44 HDL Cholesterol 41 mg/dL (60-100) L 04/01/20 05:44 LDL/HDL Ratio 0.90 RATIO (0.00-3.22) 04/01/20 05:44 Cholesterol/HDL Ratio 2.39 mg/dL (0.0-4.40) 04/01/20 05:44 Lipase 16 U/L (13-60) 03/31/20 15:40 Procalcitonin 0.24 ng/mL (0-0.5) 04/01/20 05:44 Urine Color Yellow (Yellow) 03/31/20 15:40 Urine Appearance Clear (CLEAR) 03/31/20 15:40 Urine pH 5 (5-7) 03/31/20 15:40 Ur Specific [place] 1.015 (1.005-1.030) 03/31/20 15:40 Urine Protein 1+ (Negative) H 03/31/20 15:40 Urine Glucose (UA) Norm (Normal) 03/31/20 15:40 Urine Ketones Negative (Negative) 03/31/20 15:40 Urine Blood Neg (Negative) 03/31/20 15:40 Urine Nitrate Negative (Negative) 03/31/20 15:40 Urine Bilirubin Neg (Negative) 03/31/20 15:40 Urine Urobilinogen Neg mg/dL (Negative) 03/31/20 15:40 Ur Leukocyte Esterase Negative (Negative) 03/31/20 15:40 Urine RBC 0-4 /hpf (0-2) H 03/31/20 15:40 Urine WBC 5-10 /hpf (0-5) H 03/31/20 15:40 Ur Squamous Epith Cells 0-4 /hpf (0-5) H 03/31/20 15:40 Amorphous Sediment Not Reportable 03/31/20 15:40 Urine Bacteria 1+ /hpf (NONE) H 03/31/20 15:40 SARS-CoV-2 Ag (Rapid) Negative (Negative) 03/31/20 18:45 Micro: Microbiology 03/31/20 15:40 Urine Culture - Preliminary Urine,Clean Catch Gram Negative Rods A&P Assessment and plan (1) Atypical chest pain: The symptoms are somewhat atypical. She may have a musculoskeletal component for the left shoulder pain. However the ischemic pain appears to have improved. Her EKG has no significant changes. No evidence of myocardial injury so far. Her perfusion scan is suggestive of ischemia in the distribution of the left anterior descending artery and the circumflex artery. And her CT of the chest also revealed coronary calcification suggesting atherosclerosis. She has a strong family history for premature atherosclerotic heart disease. I discussed with the patient in detail the implications of the myocardial perfusion imaging and the need for further evaluation. For further evaluation of her coronary status, she requires a cardiac catheterization. The risk of bleeding, hematoma, vascular injury, myocardial infarction, CVA, renal failure and other concomitant complications were explained in detail. Patient understood this well and consented to proceed. We will go ahead and make arrangements to have the angiogram done as early as possible. Because of the drop in the hemoglobin, I may hold off on the cardiac catheterization for today. Consider blood transfusion to keep the hemoglobin close to 10. We will be discussing this with Dr. Rosario Status: Acute (2) Abnormal nuclear stress test: As mentioned above Status: Acute (3) Type 2 diabetes mellitus: Seems to be under control. May continue on the current treatment measures. Status: Acute Qualifiers: Diabetes mellitus complication status: with hyperglycemia Diabetes mellitus fpc insulin use: with fpc use Qualified Code(s): E11.65 - Type 2 diabetes mellitus with hyperglycemia; Z79.4 - USP (current) use of insulin (4) Benign essential hypertension with target blood pressure below 140/90: The blood pressure seems to be getting under control. May continue on the current medications. We will closely monitor the pressure. Status: Acute (5) Dyslipidemia: Patient has been on the lipid-lowering agent Status: Acute (6) Neutrophilic leukocytosis: Most likely related to the steroids. No evidence of infection so far. Repeat CBC this morning shows the white cell count coming down. Status: Acute (7) SOB (shortness of breath): The echocardiogram was reviewed. Patient has mild hypokinesia of the inferobasal segment. After reviewing the cardiac origination data, further management decisions will be made. Status: Acute (8) Carotid artery disease: Patient was found to have 50 to 79% stenosis on the left side and 16 to 49% stenosis on the right side. For the time being, we may continue on the current medications. Status: Acute Qualifiers: Carotid artery disease type: stenosis Laterality: bilateral Qualified Code(s): I65.23 - Occlusion and stenosis of bilateral carotid arteries Additional A&P Information Based on the patient's clinical progress, further management decisions will be made Attestations Medical Necessity Statement*: Patient requires continued hospital stay for close monitoring and further management Coding Level of Care Code Acute Lead Radiation Therapist for [facility] Diagnoses Atypical chest pain R07.89 Abnormal nuclear stress test R94.39 Type 2 diabetes mellitus E11.65; Z79.4 Diabetes mellitus complication status: with hyperglycemia 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
[2020-04-02] MEDS: metoprolol tartrate 50 mg Tablet PO ×2 (08:14→17:28)
[2020-04-02] MEDS: allopurinol 100 mg Tablet PO ×2 (08:14→17:28)
[2020-04-02] MEDS: aspirin 325 mg Tablet PO (08:15)
[2020-04-02] MEDS: atorvastatin 40 mg Tablet 80 MG PO (08:15)
[2020-04-02] MEDS: losartan 50 mg Tablet 100 MG PO (08:15)
[2020-04-02] MEDS: predniSONE 5 mg Tablet PO (08:15)
[2020-04-02] MEDS: duloxetine 60 mg Capsule PO (08:16)
[2020-04-02] MEDS: ondansetron 2 mg/ML SDV 2 mL 4 MG IVP (10:52)
[2020-04-02 11:53] LABS: Glucose Point of Care 326 mg/dL (70-110)
[2020-04-02 16:35] LABS: Glucose Point of Care 211 mg/dL (70-110)
--- NOTE | 2020-04-02 19:17 | P.PN_ITS ---
Subjective Subjective: Interval history: Patient complains of feeling somewhat tired. Denies any chest pain or palpitations. Her hemoglobin has dropped to 8.5 today. Denies any fever or chills. No cough. Medications: Reviewed: Yes Medication Review Details: Current Medications Acetaminophen (Tylenol) 650 mg PO Q6H PRN PRN Reason: Mild/Mod Pain Or Temp >/= 101 Hydrocodone Bitart/Acetaminophen ([place] 5-325 Mg) 1 tab PO Q4H PRN PRN Reason: MODERATE TO SEVERE PAIN Last Admin: 04/02/20 00:56 Dose: 1 tab Documented by: Allopurinol (Zyloprim) 100 mg PO BID [facility] Last Admin: 04/01/20 18:03 Dose: 100 mg Documented by: Aspirin (Aspirin) 325 mg PO DAILY [facility] Atorvastatin Calcium (Lipitor) 80 mg PO DAILY [facility] Dextrose (D50w) 25 ml IVP ONCE PRN; Protocol PRN Reason: hypoglycemia protocol Dextrose (D50w) 50 ml IVP PRN PRN; Protocol PRN Reason: hypoglycemia protocol Duloxetine HCl (Cymbalta) 60 mg PO DAILY [facility] Enoxaparin Sodium (Lovenox) 40 mg SUBCUT Q24H [facility] Last Admin: 04/01/20 21:03 Dose: 40 mg Documented by: Glucagon (Glucagen) 1 mg IM ONCE PRN; Protocol PRN Reason: Adult Acute Hypoglycemia Prot. Sodium Chloride (Sodium Chloride 0.9%) 1,000 mls @ 75 mls/hr IV .[id number] [facility] Last Admin: 04/02/20 05:04 Dose: 75 mls/hr Documented by: Dextrose (D5w) 500 mls @ 100 mls/hr IV ONCE PRN; Protocol PRN Reason: Adult Acute Hypoglycemia Prot Sodium Chloride (Sodium Chloride 0.9%) 1,000 mls @ 50 mls/hr IV .Q20H ONE Stop: 04/02/20 14:29 Insulin Aspart (Novolog) 0 unit SUBCUT WM&BEDTIME [facility]; Protocol Last Admin: 04/01/20 21:01 Dose: 10 unit Documented by: Lanolin (Lanolin Oint) 1 applic TOPICAL PRN PRN PRN Reason: DRYNESS Losartan Potassium (Cozaar) 100 mg PO DAILY [facility] Metoprolol Tartrate (Lopressor) 50 mg PO BID [facility] Last Admin: 04/01/20 18:03 Dose: 50 mg Documented by: Non-Formulary Medication (Insulin Degludec [Tresiba Flextouch U-100]) 50 unit SUBCUT DAILY [facility] Ondansetron HCl (Zofran) 4 mg IVP Q8H PRN PRN Reason: vomiting, or N/V if npo Ondansetron HCl (Zofran) 4 mg IVP Q2M PRN PRN Reason: NAUSEA Prednisone (Prednisone) 5 mg PO DAILY [facility] Vitals/I&O/Wt Last Vital Signs Temp 98.2 F 04/02/20 15:57 Pulse 71 04/02/20 15:57 Resp 18 04/02/20 15:57 BP 136/62 04/02/20 15:57 Pulse Ox 93 04/02/20 15:57 04/02/20 04/02/20 04/02/20 06:59 14:59 22:59 Intake Total 1200 / 2640 240 / 240 240 / 480 Output Total 100 / 100 Balance 1100 / 2540 240 / 240 240 / 480 Physical Exam Narrative: EXAM NARRATIVE: General- mild distress due to chest pain new line HEENT -grossly unremarkable Chest- tender to palpation on left chest wall Respiratory -clear to auscultation bilaterally CVS -regular rate rhythm no obvious murmurs Abdomen-soft non-tender non-distended Extremities-no edema Data : 04/02/20 02:17 04/02/20 02:17 Micro: Microbiology 03/31/20 15:40 Urine Culture - Final Urine,Clean Catch Klebsiella pneumoniae A&P Assessment and plan (1) Chest pain: Status: Acute Qualifiers: Chest pain type: unspecified Qualified Code(s): R07.9 - Chest pain, unspecified (2) Seronegative rheumatoid arthritis: Status: Acute Chest pain - Stress test showed reversible ischemia - Cardiology consulted - Plan for cath in am - Asa 325 mg PO daily - Lipitor 80mg po daily - NPO at midnight Anemia - Per cardiology maintain hb> 9.0 - Type cross and transfuse 1 unit of PRBC - Repeat CBC in am - Stool for occult blood - Iron, TIBC, Ferritin in am K.Pneumonia UTI - Asymptomatic currenlty - Will start Rocephin 1 g IV q24hr - 3 days of total tx Leukocytosis - Improving w/o abx - Possible due to UTI vs steroids - Repeat CBC in am GI ppx - Protonix 40 mg PO daily DVT ppx - Lovenox 40 mg SQ daily Additional Medical Problems Hypertension Dylipidemia Diabetes Mellitus Rheumatoid / OA / Gout Chronic Prednisone therapy Unclear h/o lymphoma s/p chemo Chronic Left shoulder pain Attestations Medical Necessity Statement*: Plan for cardiac cath, started on IV abx for which patient will require additional days in hospital Time Spent in Patient Care: Greater than 35 minutes Coding Level of Care Code Acute Court Registry Officer for [facility] Diagnoses Chest pain R07.9 Chest pain type: unspecified Seronegative rheumatoid arthritis M06.00
[2020-04-02] MEDS: cefTRIAXone 1,000 MG in sodium chloride 0.9% (plus) 50 ML 100 MG IV (19:53)
[2020-04-02] MEDS: enoxaparin 40 mg/0.4 mL Syringe SUBCUT (21:48)
[2020-04-02] MEDS: sodium chloride 0.9% (100 ml) 100 ML 150 ML (22:43)
[2020-04-03] VITALS (9 sets, daily range): BP systolic 126–164; BP diastolic 61–75; PULSE 63–74; RESP 17–18; TEMP 36.5–37.1; O2SAT 90–96
[2020-04-03] MEDS: sodium chloride 0.9% 1,000 ML 75 ML IV ×2 (03:19→15:29)
[2020-04-03 05:12] LABS: Basophils # 0.1 10^3/uL (0.0-0.1); Basophils % 0.5 %; Eosinophils # 0.4 10^3/uL (0.0-0.8); Eosinophils % 2.9 %; Hematocrit 29.7 % (37.0-47.0); Hemoglobin 8.8 g/dL (11.5-15.3); Lymphocytes # 2.3 10^3/uL (0.8-4.8); Lymphocytes % 15.6 %; Mean Corpuscular HGB Conc 29.6 g/dL (30.0-36.0); Mean Corpuscular Hemoglobin 26.2 pg (28.0-34.0); Mean Corpuscular Volume 88.4 fL (81-99); Mean Platelet Volume 10.4 fL (7.4-10.4); Monocytes # 1.1 10^3/uL (0.2-0.9); Monocytes % 7.3 %; Neutrophils # 10.65 10^3/uL (1.8-7.7); Neutrophils % 72.9 %; Nucleated Red Blood Cells % 0 %; Platelet Count 429 10^3/cmm (130-400); Red Blood Count 3.36 10^6/uL (4.1-5.3); Red Cell Distribution Width 16.4 % (12.1-15.1); White Blood Count 14.6 10^3/uL (4.0-10.0)
[2020-04-03 05:37] LABS: Alanine Aminotransferase 9 U/L (0-33); Albumin Level 2.9 g/dL (3.5-5.2); Alkaline Phosphatase 90 IU/L (35-105); Anion Gap 13.9 (5-19); Aspartate Amino Transferase 10 U/L (0-32); Blood Urea Nitrogen 23 mg/dL (8-23); Calcium 8.9 mg/dL (8.5-10.5); Carbon Dioxide 25 mmol/L (22-29); Chloride 102 mmol/L (98-107); Globulin 4.1 g/dL (1.3-4.6); Glucose 172 mg/dL (65-115); Osmolality Calculated 292 mOsm/kg (285-295); Potassium 3.9 mmol/L (3.5-5.1); Sodium 137 mmol/L (136-145); Total Bilirubin 0.3 mg/dL (0.15-1.2)
[2020-04-03 05:38] LABS: Ferritin 512 ng/mL (15-150); Iron 58 ug/dL (37-145); Percent Saturation 38.4 % (20-50); Total Iron Binding Capacity 151 mcg/dl; Unsaturated Iron Binding 93 ug/dL (112-347)
[2020-04-03 06:57] LABS: Glucose Point of Care 174 mg/dL (70-110)
--- NOTE | 2020-04-03 07:33 | PC.NURSE ---
this nurse noticed TAR blood transfusion was not stopped, but upon receiving report blood transfusion was completed last night and no blood transfusion was hanging at bedside so TAR was stopped at this time.
--- NOTE | 2020-04-03 07:38 | PC.NURSE ---
Dr. Mcclure notified of hgb level of 8.8 this morning with scheduled cardiac cath this AM, physician will be coming by to see patient to make further arrangements. Dr. Rosario made aware as well.
--- NOTE | 2020-04-03 07:50 | P.PN_ITS ---
Subjective Subjective: Interval history: Patient denies any chest pain or unusual shortness of breath. She had 1 unit of blood transfusion yesterday. The hemoglobin went up from 8.5-8.8 today. She denies any abdominal pain. No hematuria or any melena. Medications: Reviewed: Yes Medication Review Details: Current Medications Acetaminophen (Tylenol) 650 mg PO Q6H PRN PRN Reason: Mild/Mod Pain Or Temp >/= 101 Hydrocodone Bitart/Acetaminophen ([place] 5-325 Mg) 1 tab PO Q4H PRN PRN Reason: MODERATE TO SEVERE PAIN Last Admin: 04/02/20 00:56 Dose: 1 tab Documented by: Allopurinol (Zyloprim) 100 mg PO BID [facility] Last Admin: 04/02/20 17:28 Dose: 100 mg Documented by: Aspirin (Aspirin) 325 mg PO DAILY [facility] Last Admin: 04/02/20 08:15 Dose: 325 mg Documented by: Atorvastatin Calcium (Lipitor) 80 mg PO DAILY [facility] Last Admin: 04/02/20 08:15 Dose: 80 mg Documented by: Dextrose (D50w) 25 ml IVP ONCE PRN; Protocol PRN Reason: hypoglycemia protocol Dextrose (D50w) 50 ml IVP PRN PRN; Protocol PRN Reason: hypoglycemia protocol Duloxetine HCl (Cymbalta) 60 mg PO DAILY [facility] Last Admin: 04/02/20 08:16 Dose: 60 mg Documented by: Enoxaparin Sodium (Lovenox) 40 mg SUBCUT Q24H [facility] Last Admin: 04/02/20 21:48 Dose: 40 mg Documented by: Glucagon (Glucagen) 1 mg IM ONCE PRN; Protocol PRN Reason: Adult Acute Hypoglycemia Prot. Sodium Chloride (Sodium Chloride 0.9%) 1,000 mls @ 75 mls/hr IV .[id number] [facility] Last Admin: 04/03/20 03:19 Dose: 75 mls/hr Documented by: Dextrose (D5w) 500 mls @ 100 mls/hr IV ONCE PRN; Protocol PRN Reason: Adult Acute Hypoglycemia Prot Ceftriaxone Sodium 1,000 mg/ (Sodium Chloride) 50 mls @ 100 mls/hr IV Q24H [facility]; Protocol Last Admin: 04/02/20 19:53 Dose: 100 mls/hr Documented by: Insulin Aspart (Novolog) 0 unit SUBCUT WM&BEDTIME [facility]; Protocol Last Admin: 04/02/20 21:48 Dose: 12 unit Documented by: Lanolin (Lanolin Oint) 1 applic TOPICAL PRN PRN PRN Reason: DRYNESS Losartan Potassium (Cozaar) 100 mg PO DAILY [facility] Last Admin: 04/02/20 08:15 Dose: 100 mg Documented by: Metoprolol Tartrate (Lopressor) 50 mg PO BID [facility] Last Admin: 04/02/20 17:28 Dose: 50 mg Documented by: Non-Formulary Medication (Insulin Degludec [Tresiba Flextouch U-100]) 50 unit SUBCUT DAILY [facility] Last Admin: 04/02/20 08:15 Dose: Not Given Documented by: Ondansetron HCl (Zofran) 4 mg IVP Q8H PRN PRN Reason: vomiting, or N/V if npo Last Admin: 04/02/20 10:52 Dose: 4 mg Documented by: Ondansetron HCl (Zofran) 4 mg IVP Q2M PRN PRN Reason: NAUSEA Prednisone (Prednisone) 5 mg PO DAILY [facility] Last Admin: 04/02/20 08:15 Dose: 5 mg Documented by: Vitals/I&O/Wt Last Vital Signs Temp 98.7 F 04/03/20 07:34 Pulse 74 04/03/20 07:34 Resp 18 04/03/20 07:34 BP 144/68 04/03/20 07:34 Pulse Ox 92 04/03/20 07:34 04/02/20 04/03/20 04/03/20 22:59 06:59 14:59 Intake Total 1165 / 1405 350 / 350 Balance 1165 / 1405 350 / 350 Physical Exam Narrative: EXAM NARRATIVE: GENERAL: The patient is alert and oriented times three. Not in any acute distress. Obese HEENT: Mild pallor, icterus or lymphadenopathy. The pupils are symmetrical oral cavity: There are no mucous membrane lesions. NECK: Trachea appears to be central. No masses noted. No JVD or thyromegaly appreciated. No carotid bruit. RESPIRATORY: Chest is symmetrical. No intercostals muscle retraction or any accessory muscle activation. There is no chest wall tenderness. Breath sounds are heard bilaterally. No rales or rhonchi heard. No evidence of any consolidation. Diminished intensity of breath sounds in the bases BREASTS: Deferred. HEART: The PMI could not be palpated no palpable precordial events. S1 and S2 are normal. No S3 or S4 heard. No pericardial rub or any click heard. ABDOMEN: Abdomen is obese. No vessel pulsations or distention. No tenderness. No organomegaly appreciated. No abdominal bruit. Bowel sounds are normally heard. : Deferred. RECTAL: Deferred. LYMPHATIC: No lymphadenopathy noted in the neck or groin. EXTREMITIES: 1+ edema both lower extremities with no cyanosis MUSCULOSKELETAL: No acute joint deformities or swelling SKIN: There are no significant scars or skin rash noted. NEUROPSYCHIATRIC: The patient is alert and oriented x3. Appears to be in a good mood. The higher functions are grossly within normal limits. No tremors or rigidity noted. Data : 04/03/20 09:27 04/03/20 04: Micro: Laboratory Last Values WBC 14.6 10^3/uL (4.0-10.0) H 04/03/20 04: RBC 3.36 10^6/uL (4.1-5.3) L 04/03/20 04: Hgb 8.8 g/dL (11.5-15.3) L 04/03/20 04: Hct 29.7 % (37.0-47.0) L 04/03/20 04: MCV 88.4 fL (81-99) 04/03/20 04: MCH 26.2 pg (28.0-34.0) L 04/03/20 04: MCHC 29.6 g/dL (30.0-36.0) L 04/03/20: RDW 16.4 % (12.1-15.1) H 04/03/20 04: Plt Count 429 10^3/cmm (130-400) H 04/03/20: MPV 10.4 fL (7.4-10.4) 04/03/20 04: Neut % (Auto) 72.9 % 04/03/20 04: Lymph % (Auto) 15.6 % 04/03/20: [place] % (Auto) 7.3 % 04/03/20: Eos % (Auto) 2.9 % 04/03/20: Baso % (Auto) 0.5 % 11/04/20 04:27 Neut # (Auto) 10.65 10^3/uL (1.8-7.7) H 04/03/20 04:27 Lymph # (Auto) 2.3 10^3/uL (0.8-4.8) 04/03/20 04:27 [place] # (Auto) 1.1 10^3/uL (0.2-0.9) H 04/03/20 04:27 Eos # (Auto) 0.4 10^3/uL (0.0-0.8) 04/03/20 04:27 Baso # (Auto) 0.1 10^3/uL (0.0-0.1) 04/03/20 04:27 Nucleated RBC % (auto) 0 % 04/03/20 04:27 Nucleated RBCs # 0.0 /100WBC 04/03/20 04:27 Sodium 137 mmol/L (136-145) 04/03/20 04:27 Potassium 3.9 mmol/L (3.5-5.1) 04/03/20 04:27 Chloride 102 mmol/L (98-107) 04/03/20 04:27 Carbon Dioxide 25 mmol/L (22-29) 04/03/20 04:27 Anion Gap 13.9 (5-19) 04/03/20 04:27 BUN 23 mg/dL (8-23) 04/03/20 04:27 Creatinine 1.0 mg/dL (0.5-0.9) H 04/03/20 04:27 GFR Calculation Not Reportable 04/03/20 04:27 Glucose 172 mg/dL (65-115) H 04/03/20 04:27 POC Glucose 174 mg/dL (70-110) 04/03/20 06:23 Estimat Average Glucose 214 04/01/20 05:44 Hemoglobin A1c 9.1 % (4.0-6.0) H 04/01/20 05:44 Calculated Osmolality 292 mOsm/kg (285-295) 04/03/20 04:27 Calcium 8.9 mg/dL (8.5-10.5) 04/03/20 04:27 Magnesium 1.4 mg/dL (1.7-2.3) L 04/01/20 05:44 Iron 58 ug/dL (37-145) 04/03/20 04:27 Iron Cancelled 04/03/20 04:27 TIBC 151 mcg/dl 04/03/20 04:27 % Saturation 38.4 % (20-50) 04/03/20 04:27 Unsat Iron Binding 93 ug/dL (112-347) L 04/03/20 04:27 Ferritin 512 ng/mL (15-150) H 04/03/20 04:27 Total Bilirubin 0.3 mg/dL (0.15-1.2) 04/03/20 04:27 AST 10 U/L (0-32) 04/03/20 04:27 ALT 9 U/L (0-33) 04/03/20 04:27 Alkaline Phosphatase 90 IU/L (35-105) 04/03/20 04:27 Troponin T Gen 5 ng/L 12 ng/L (0-10) H 04/01/20 05:44 Troponin T Baseline 11 ng/L (0-10) H 03/31/20 15:40 Troponin T 120 Minute 10.66 ng/L (0-10) H 03/31/20 17:34 Delta Troponin T -0.34 ABS# (0-10) L 03/31/20 17:34 NT-Pro-B Natriuret Pep 276 pg/mL (0-450) 03/31/20 15:40 Total Protein 7.0 g/dL (6.6-8.7) 04/03/20 04:27 Albumin 2.9 g/dL (3.5-5.2) L 04/03/20 04:27 Globulin 4.1 g/dL (1.3-4.6) 04/03/20 04:27 Triglycerides 99 mg/dL (0-150) 04/01/20 05:44 Cholesterol 98 mg/dL (0-200) 04/01/20 05:44 LDL Cholesterol, Calc 37 mg/dL (50-129) L 04/01/20 05:44 HDL Cholesterol 41 mg/dL (60-100) L 04/01/20 05:44 LDL/HDL Ratio 0.90 RATIO (0.00-3.22) 04/01/20 05:44 Cholesterol/HDL Ratio 2.39 mg/dL (0.0-4.40) 04/01/20 05:44 Lipase 16 U/L (13-60) 03/31/20 15:40 Procalcitonin 0.24 ng/mL (0-0.5) 04/01/20 05:44 Urine Color Yellow (Yellow) 03/31/20 15:40 Urine Appearance Clear (CLEAR) 03/31/20 15:40 Urine pH 5 (5-7) 03/31/20 15:40 Ur Specific [place] 1.015 (1.005-1.030) 03/31/20 15:40 Urine Protein 1+ (Negative) H 03/31/20 15:40 Urine Glucose (UA) Norm (Normal) 03/31/20 15:40 Urine Ketones Negative (Negative) 03/31/20 15:40 Urine Blood Neg (Negative) 03/31/20 15:40 Urine Nitrate Negative (Negative) 03/31/20 15:40 Urine Bilirubin Neg (Negative) 03/31/20 15:40 Urine Urobilinogen Neg mg/dL (Negative) 03/31/20 15:40 Ur Leukocyte Esterase Negative (Negative) 03/31/20 15:40 Urine RBC 0-4 /hpf (0-2) H 03/31/20 15:40 Urine WBC 5-10 /hpf (0-5) H 03/31/20 15:40 Ur Squamous Epith Cells 0-4 /hpf (0-5) H 03/31/20 15:40 Amorphous Sediment Not Reportable 03/31/20 15:40 Urine Bacteria 1+ /hpf (NONE) H 03/31/20 15:40 SARS-CoV-2 Ag (Rapid) Negative (Negative) 03/31/20 18:45 Blood Type O Positive 04/02/20 16:15 Rho(D) Type Positive 04/02/20 16:15 Antibody Screen Negative 04/02/20 16:15 Crossmatch See Detail 04/02/20 16:15 A&P Assessment and plan (1) Atypical chest pain: The symptoms are somewhat atypical. She may have a musculoskeletal component for the left shoulder pain. However the ischemic pain appears to have improved. Her EKG has no significant changes. No evidence of myocardial injury so far. Her perfusion scan is suggestive of ischemia in the distribution of the left anterior descending artery and the circumflex artery. And her CT of the chest also revealed coronary calcification suggesting atherosclerosis. She has a strong family history for premature atherosclerotic heart disease. I discussed with the patient in detail the implications of the myocardial perfusion imaging and the need for further evaluation. For further evaluation of her coronary status, she requires a cardiac catheterization. The risk of bleeding, hematoma, vascular injury, myocardial infarction, CVA, renal failure and other concomitant complications were explained in detail. Patient understood this well and consented to proceed. We will go ahead and make arrangements to have the angiogram done as early as possible. Patient continues to be anemic with no significant improvement in the hemoglobin even after blood transfusion. It is s a concern. We may go ahead and repeat the CBC. If she continues to have the low hemoglobin, may require further work- up to identify any source of bleeding, before proceeding with the cardiac catheterization. This was discussed with the patient in detail. I also discussed this with Dr. Villafuerte. Status: Acute (2) Abnormal nuclear stress test: As mentioned above Status: Acute (3) Type 2 diabetes mellitus: Seems to be under control. Management as per the primary Status: Acute Qualifiers: Diabetes mellitus complication status: with hyperglycemia Diabetes mellitus intermediate insulin use: with long chain dyeing machine operator use Qualified Code(s): E11.65 - Type 2 diabetes mellitus with hyperglycemia; Z79.4 - jail (current) use of insulin (4) Benign essential hypertension with target blood pressure below 140/90: The blood pressure seems to be getting under control. May continue on the current medications. We will closely monitor the pressure. Status: Acute (5) Dyslipidemia: Patient has been on the lipid-lowering agent Status: Acute (6) Neutrophilic leukocytosis: Most likely related to the steroids. No evidence of infection so far. Repeat CBC this morning shows the white cell count coming down. Status: Acute (7) SOB (shortness of breath): The echocardiogram was reviewed. Patient has mild hypokinesia of the inferobasal segment. After reviewing the cardiac origination data, further management decisions will be made. Status: Acute (8) Carotid artery disease: Patient was found to have 50 to 79% stenosis on the left side and 16 to 49% stenosis on the right side. For the time being, we may continue on the current medications. Status: Acute Qualifiers: Carotid artery disease type: stenosis Laterality: bilateral Qualified Code(s): I65.23 - Occlusion and stenosis of bilateral carotid arteries Additional A&P Information Based on the patient's clinical progress, further management decisions will be made. According the patient, she is wanting to go to [place] for further evaluation of her anemia/GI work-up. Based on the repeat CBC, further recommendations will be made Addendum Repeated CBC showed a hemoglobin of 9.7. Most likely the previous hemoglobin was lab error or some technical problems. Based on this, since the blood count seems to be stable, we may go ahead and do the cardiac catheterization. Since the lab is totally booked up today, we may do it in the peeler operator. Based on the results, further recommendations will be made Attestations Medical Necessity Statement*: Patient requires continued hospital stay for close monitoring and further management Coding Level of Care Code Acute Public Policy Mediator for [facility] Fwd Diagnoses Atypical chest pain R07.89 Abnormal nuclear stress test R94.39 Type 2 diabetes mellitus E11.65; Z79.4 Diabetes mellitus complication status: with hyperglycemia Diabetes mellitus long chain dyeing machine operator insulin use: with intermediate use Benign essential hypertension with target blood pressure below 140/90 I10 Dyslipidemia E78.5 Neutrophilic leukocytosis D72.9 SOB (shortness of breath) R06.02 Carotid artery disease I65.23 Carotid artery disease type: stenosis Laterality: bilateral
--- NOTE | 2020-04-03 08:15 | PC.NURSE ---
Dr. Mcclure at bedside with patient discussing new plan of care to obtain lab draw again for accurate blood count and then evaluate further plan, holding medication until plan is made final, Dr. Mcclure aware.
[2020-04-03] MEDS: predniSONE 5 mg Tablet PO (08:41)
[2020-04-03] MEDS: duloxetine 60 mg Capsule PO (08:41)
[2020-04-03] MEDS: metoprolol tartrate 50 mg Tablet PO ×2 (08:41→17:25)
[2020-04-03] MEDS: atorvastatin 40 mg Tablet 80 MG PO (08:41)
[2020-04-03] MEDS: allopurinol 100 mg Tablet PO ×2 (08:41→17:26)
[2020-04-03] MEDS: losartan 50 mg Tablet 100 MG PO (08:42)
[2020-04-03] MEDS: aspirin 325 mg Tablet PO (08:49)
[2020-04-03] MEDS: NON-FORMULARY MEDICATION (Insulin Degludec [Tresiba Flextouch U-100] 50 UNIT) 50 EACH SUBCUT (08:49)
--- NOTE | 2020-04-03 08:49 | PC.NURSE ---
Dr. Rosario at bedside, informed this nurse patient can have consistent carb diet, continue all scheduled morning insulin as ordered, continue aspirin administration, plan to arrange for follow up care in [place] per patient request and discharge once obtained, scheduled cardiac cath discontinued for this morning.
[2020-04-03 09:40] LABS: Hemoglobin 9.7 g/dL (11.5-15.3)
--- NOTE | 2020-04-03 09:58 | PC.NURSE ---
Dr. Mcclure notified of hgb 9.7, notified this nurse will call back with further instructions and orders.
--- NOTE | 2020-04-03 10:01 | PC.NURSE ---
Dr. Mcclure notified this nurse that patient will be scheduled for cardiac cath at 4PM, Dr. Mcclure notified this nurse patient can eat a light breakfast now, patient informed and is requesting to talk to Dr. Mcclure at noon after he is finished with clinic.
[2020-04-03 11:59] LABS: Glucose Point of Care 255 mg/dL (70-110)
--- NOTE | 2020-04-03 12:16 | PC.NURSE ---
held insulin per doctors orders due to cardiac cath procedure this afternoon
--- NOTE | 2020-04-03 14:54 | PM.PN ---
Subjective Subjective: Interval history: Patient had noted improvement in chest discomfort. Denies any shortness of breath. No nausea, vomiting, abdominal pain. Medications: Reviewed: Yes Medication Review Details: Current Medications Acetaminophen (Tylenol) 650 mg PO Q6H PRN PRN Reason: Mild/Mod Pain Or Temp >/= 101 Hydrocodone Bitart/Acetaminophen ([place] 5-325 Mg) 1 tab PO Q4H PRN PRN Reason: MODERATE TO SEVERE PAIN Last Admin: 04/02/20 00:56 Dose: 1 tab Documented by: Allopurinol (Zyloprim) 100 mg PO BID [facility] Last Admin: 04/01/20 18:03 Dose: 100 mg Documented by: Aspirin (Aspirin) 325 mg PO DAILY [facility] Atorvastatin Calcium (Lipitor) 80 mg PO DAILY [facility] Dextrose (D50w) 25 ml IVP ONCE PRN; Protocol PRN Reason: hypoglycemia protocol Dextrose (D50w) 50 ml IVP PRN PRN; Protocol PRN Reason: hypoglycemia protocol Duloxetine HCl (Cymbalta) 60 mg PO DAILY [facility] Enoxaparin Sodium (Lovenox) 40 mg SUBCUT Q24H [facility] Last Admin: 04/01/20 21:03 Dose: 40 mg Documented by: Glucagon (Glucagen) 1 mg IM ONCE PRN; Protocol PRN Reason: Adult Acute Hypoglycemia Prot. Sodium Chloride (Sodium Chloride 0.9%) 1,000 mls @ 75 mls/hr IV .[id number] [facility] Last Admin: 04/02/20 05:04 Dose: 75 mls/hr Documented by: Dextrose (D5w) 500 mls @ 100 mls/hr IV ONCE PRN; Protocol PRN Reason: Adult Acute Hypoglycemia Prot Sodium Chloride (Sodium Chloride 0.9%) 1,000 mls @ 50 mls/hr IV .Q20H ONE Stop: 04/02/20 14:29 Insulin Aspart (Novolog) 0 unit SUBCUT WM&BEDTIME [facility]; Protocol Last Admin: 04/01/20 21:01 Dose: 10 unit Documented by: Lanolin (Lanolin Oint) 1 applic TOPICAL PRN PRN PRN Reason: DRYNESS Losartan Potassium (Cozaar) 100 mg PO DAILY [facility] Metoprolol Tartrate (Lopressor) 50 mg PO BID [facility] Last Admin: 04/01/20 18:03 Dose: 50 mg Documented by: Non-Formulary Medication (Insulin Degludec [Tresiba Flextouch U-100]) 50 unit SUBCUT DAILY [facility] Ondansetron HCl (Zofran) 4 mg IVP Q8H PRN PRN Reason: vomiting, or N/V if npo Ondansetron HCl (Zofran) 4 mg IVP Q2M PRN PRN Reason: NAUSEA Prednisone (Prednisone) 5 mg PO DAILY [facility] Vitals/I&O/Wt Last Vital Signs Temp 98.1 F 04/03/20 11:32 Pulse 63 04/03/20 11:32 Resp 18 04/03/20 11:32 BP 131/65 04/03/20 11:32 Pulse Ox 96 04/03/20 11:32 04/02/20 04/03/20 04/03/20 22:59 06:59 14:59 Intake Total 1165 / 1405 851.25 / 851.25 Output Total 600 / 600 Balance 1165 / 1405 251.25 / 251.25 Physical Exam Narrative: EXAM NARRATIVE: General- No apparent distress HEENT -grossly unremarkable Chest- tender to palpation on left chest wall Respiratory -clear to auscultation bilaterally CVS -regular rate rhythm no obvious murmurs Abdomen-soft non-tender non-distended Extremities-no edema Data : 04/03/20 09:27 04/03/20 04:27 A&P Assessment and plan (1) Chest pain: Status: Acute Qualifiers: Chest pain type: unspecified Qualified Code(s): R07.9 - Chest pain, unspecified (2) Seronegative rheumatoid arthritis: Status: Acute Chest pain - Stress test showed reversible ischemia - Cardiology consulted - Possible cardiac catheterization today - Asa 325 mg PO daily - Lipitor 80mg po daily - Held due to anemia plus infectious work up Anemia - Per cardiology maintain hb> 9.0 - Transfused 1 unit of RBC yesterday - Repeat CBC in am - Stool for occult blood - Pending - Iron, TIBC, Ferritin reviewed K.Pneumonia UTI - Asymptomatic - Rocephin 1 g IV q24hr - Day 2 of antibiotics Leukocytosis - Improving 18 - > 14.6 - Possible due to UTI vs steroids - Repeat CBC in am GI ppx - Protonix 40 mg PO daily DVT ppx - Lovenox 40 mg SQ daily Additional Medical Problems Hypertension Dylipidemia Diabetes Mellitus Rheumatoid / OA / Gout Chronic Prednisone therapy Unclear h/o lymphoma s/p chemo Chronic Left shoulder pain Attestations Medical Necessity Statement*: Will require further hospitalization for ongoing cardiology evaluation and anemia as well as urinary tract infection requiring IV antibiotics Time Spent in Patient Care: Greater than 35 minutes (>than 50% of time spent in counselling and/or direct pt care on unit). Coding Level of Care Code Acute Automation Machine Builder for [facility] Diagnoses Chest pain R07.9 Chest pain type: unspecified Seronegative rheumatoid arthritis M06.00
--- NOTE | 2020-04-03 15:09 | PC.NURSE ---
LIGHT EQUIPMENT OPERATOR NOTE THE PATIENT'S LHC WILL BE MOVED TO Wednesday04/04/[address] CAMPUZANO. READBACK TELEPHONE ORDERS WERE GIVEN TO LET THE PATIENT HAVE DINNER THIS EVENING AND BE NPO AFTER MIDNIGHT. SCHEDULING WAS NOTIFIED OF THE CHANGE. THE PATIENTS NURSE, VERONICA, WAS ALSO NOTIFIED VIA VOLT PHONE OF THE CHANGES.
[2020-04-03 17:18] LABS: Glucose Point of Care 284 mg/dL (70-110)
[2020-04-03 21:01] LABS: Glucose Point of Care 197 mg/dL (70-110)
[2020-04-03] MEDS: cefTRIAXone 1,000 MG in sodium chloride 0.9% (plus) 50 ML 100 MG IV (21:28)
[2020-04-03] MEDS: enoxaparin 40 mg/0.4 mL Syringe SUBCUT (21:33)
[2020-04-03] MEDS: HYDROcodone-acetaminophen 5-325 mg Tablet 1 TAB PO (22:59)
[2020-04-04] VITALS (21 sets, daily range): BP systolic 104–169; BP diastolic 57–86; PULSE 57–74; RESP 14–29; TEMP 36.6–36.7; O2SAT 94–98
[2020-04-04 05:27] LABS: Basophils # 0.1 10^3/uL (0.0-0.1); Basophils % 0.5 %; Eosinophils # 0.4 10^3/uL (0.0-0.8); Hemoglobin 9.1 g/dL (11.5-15.3); Lymphocytes # 2.7 10^3/uL (0.8-4.8); Lymphocytes % 18.3 %; Mean Corpuscular HGB Conc 29.4 g/dL (30.0-36.0); Mean Corpuscular Hemoglobin 26.1 pg (28.0-34.0); Mean Corpuscular Volume 89.1 fL (81-99); Mean Platelet Volume 10.5 fL (7.4-10.4); Monocytes # 1.2 10^3/uL (0.2-0.9); Monocytes % 8.2 %; Neutrophils # 10.09 10^3/uL (1.8-7.7); Nucleated Red Blood Cells % 0 %; Platelet Count 430 10^3/cmm (130-400); Red Blood Count 3.48 10^6/uL (4.1-5.3); Red Cell Distribution Width 16.6 % (12.1-15.1); White Blood Count 14.6 10^3/uL (4.0-10.0)
[2020-04-04] MEDS: sodium chloride 0.9% 1,000 ML 50 ML IV (06:16)
[2020-04-04] MEDS: diphenhydrAMINE 50 mg Capsule PO (06:16)
--- NOTE | 2020-04-04 06:21 | XACV_ITS ---
Exam Room: [facility] Ht: 163 cm Wt: 98 kg BSA: 2.14 m2 Gender: Female : 1945 Any Known Allergies: Other Exam Priority: Routine Procedure(s): Procedure Description: Diagnostic procedure Procedure Description: Left Heart Catheterization Procedure Description: Left ventriculography Diagnostic Cath Status: Elective Diagnostic Findings * No significant disease noted in the Left Main, LAD, Circumflex, or RCA coronary arteries. * Mid Circumflex Coronary Artery: has lesion. * Coronary angiography shows right dominance. * The left main is a medium caliber vessel with minimal intimal irregularities. * The left anterior descending artery is a relatively small to medium caliber vessel with diffuse disease, lesions ranging anywhere from 30 to 50%. The distal artery is a small caliber vessel which wrap around the LV apex minimally. The artery gives off multiple diagonal branches. The second diagonal branch was found to have 40 to 50% diffuse narrowing in the proximal segment. The other diagonal branches were found to have mild diffuse disease. * The circumflex artery is a medium to large caliber vessel which was found to have around 40% proximal segmental narrowing. The first obtuse marginal branch is a relatively small caliber vessel with 50 to 60% diffuse narrowing. Right after the second obtuse marginal branch, the artery appears to have around 50 to 60% tubular narrowing with some haziness. No other significant stenotic lesions were seen. * The right coronary artery is a medium caliber dominant vessel which also was found to have mild to moderate diffuse disease in the proximal and distal segment. The lesions were ranging anywhere from 30 to 50%. The PDA branch was found to have a proximal around 40% narrowing involving the ostium. No other significant stenotic lesions were noted. Conclusions 1. 74-year-old white female, is admitted to hospital with complaints of pain. She has multiple risk factors for coronary disease. She had a myocardial perfusion imaging which revealed moderate area reversible defect in the distribution of the circumflex artery. For further evaluation of her coronary status, a cardiac catheterization was recommended. Patient underwent left heart catheterization with a left and right coronary angiogram and LV angiogram today. The findings are as follows. 2. 50 to 60% tubular narrowing in the circumflex artery, distal to the second obtuse marginal branch with some haziness. Mild to moderate diffuse disease in the other vessels. Normal LV ejection fraction 55%. Elevated LVEDP of 23 mmHg. In view of the patient's presenting symptoms and the abnormal myocardial perfusion imaging, to further evaluate the functional significance of the circumflex artery lesion, and FFR was thought to be appropriate. I reviewed and discussed the cardiac catheterization data with Dr. Bailey. Dr. Bailey agreed with this plan and took over further management of this patient at this point. 3. The FFR was found to be not significant. Based on these findings, it was opted to treat her medically. 4. FFR: After equalizing the distal and proximal pressure of FFR wire proximal to the lesion, mid LCx lesion was crossed with FFR wire. IV adenosine at rate of 140 mcg/min was started. Patient did not compliant of any symptoms, at then end of two minutes FFR was recorded as 0.95, which is not significant . Recommendations * Continue current medical management and risk factor modification. Diagnostic RX Recommendation: medical therapy and/or counseling Ventriculography Ejection Fraction: 55.0 % LV EDP: 22 mmHg Left Ventriculography Findings: * The LV gram was performed in the JACKSON projection. The LV cavity appears to be of normal size. The LV gram is a suboptimal quality. No significant mitral valve prolapse or mitral regurgitation. The overall LV ejection fraction was around 55%. The LVEDP was 22 mmHg. Pressures Phase:Rest AO : 171 / 69 ( 114 ) @ 1:36:00 AM 174 / 49 ( 103 ) @ 1:36:00 AM LV : 181 / -6 / @ 1:35:00 AM 165 / -15 / @ 1:36:00 AM 171 / -12 / @ 1:36:00 AM Valves Phase:DefaultPhase AV : 0.0 @ 8:24:47 AM AV Mean Gradient: 0.0 @ 8:24:47 AM Clinical Evaluation EBL: 5mL-10mL Procedural Details Procedure Consent Obtained. Admit Source: In Patient. Pre-Procedure Time Out. Identified patient by full name and date of as verbalized by the patient/guarantor. Does the consent match the physician's order: Yes. Accurate & Complete Informed Consent: Yes. Inpatient/Outpatient History & Physical on Chart: Yes. If H&P is completed, is and addenduem needed: N/A; If yes, is the addendum complete: N/A. Visualize and Verify Site with Patient/Guarantor: N/A. Relevant Radiology Images available: N/A. Pre-op teaching completed and patient verbalized understanding. The risks, benefits, and alternatives of sedation and/or procedure were discussed by physician. The patient agrees to continue. Procedure started. Correct patient, site and procedure confirmed by cath team. PERRLA. Strong, equal hand veneer jointer bilaterally. Lungs clear x 5 lobes. IV Site on Arrival: 20 gauge in the left forearm. Oxygen started at 2liters/min via nasal canula. bilateral groins was prepped with chloroprep then draped in the usual sterile fashion. right radial was prepped with chloroprep then draped in the usual sterile fashion. Baseline sample Acquired. HR: 72 BPM. Physician arrived. Latanya Vigil DRUG ROOM OPERATOR was relieved by RT Jose Manuel as monitoring person. Physician scrubbed in. Immediate Pre-Procedure Time Out. Correct Patient: Yes; Correct Procedure: Yes; Correct Site: Yes; Correct Patient Position: Yes; Correct Supplies: Yes; Dried Flammable Prep: Yes; Blood Products Available: N/A;. Lidocaine 1% infiltrated to the right radial. Arterial access obtained. A 5 italian Phillip catheter in over wire. Multiple views taken of left coronary artery. Catheter redirected to the RCA. Catheter out. A 5 italian JR4 catheter in over wire. Multiple views taken of right coronary artery. Dr. Bailey notified. Catheter out. A 5 italian Angled Pig catheter in over wire. LV gram performed in JACKSON @ 10 mL/second for a total of 30 mL. EDP Sample taken: LV 165/-16,17; HR: 77 BPM; SpO2: 100%. Pullback taken: LV 171/-13,20; AO 171/69(114); Mean: 0mmHg, Peak to Peak: 0mmHg, SEP: 17sec/min; HR: 77 BPM; SpO2: 100%. Catheter out. wire out. Side port of sheath attached to Normal Saline flush at KVO to maintain patency. Dr. Bailey arrived. Dr. Bailey scrubbed in to perform intervention. 6 italian XB 3 guide catheter was inserted over the wire. FFR guidewire was advanced through the guide catheter to lesion in the mid Circ. An FFR value of 0.95 was obtained for a lesion located at Mid CX. FFR wire out. guide out. TR band placed. Hemostasis obtained. Post Procedure: Pulses reassessed and unchanged. PERRLA. Strong, equal hand veneer jointer bilaterally. No VTE prophylaxis required. Contrast type used: Omnipaque 300 mgI/mL, 500 mL bottle. Contrast Material : Omnipaque 193 ml. Complications: none. Estimated blood loss: 5mL-10mL. A TR Band was successful obtaining hemostatsis at the Right Radial artery insertion site. Medication's Wasted: Lidocaine 1% = 18 mL. Medication's Wasted: Other = fentanyl 50 mg. Medication's Wasted: Other = versed 1 mg. Medication's Wasted: Other = adenosine 20 mg. Medication's Wasted: Nitro = 49.8 mg. Total IV fluids: 100 mL. [facility] Clinical Fraility Score: 4: Vulnerable. [place] Indications: New Onset Angina/ abnormal stress test. Chest Pain Symptom Assessment: Atypical Angina. Cardiovascular Instability: No,. Post-op diagnosis: non obstructive CAD. Vital chart was stopped. Procedure completed. Patient transferred by wheelchair to 1st floor. Access Site Site: Right Radial artery Sheath Size: 6 Fr Hemostasis Method: TR Band Hemostasis Success: Successful Procedure Medications Start: 7:05 AM Stop: 7:05 AM Medication: Fentanyl Amount: 50 mcg Route: I.V. Start: 7:17 AM Stop: 7:17 AM Medication: Versed Amount: 1 mg Route: I.V. Start: 7:17 AM Stop: 7:17 AM Medication: Fentanyl Amount: 50 mcg Route: I.V. Start: 7:17 AM Stop: 7:17 AM Medication: Verapamil Amount: 5 mg Route: I.A. Start: 7:17 AM Stop: 7:17 AM Medication: Nitrogylcerin Amount: 200 mcg Route: I.A. Start: 7:25 AM Stop: 7:25 AM Medication: Heparin Amount: 1500 units Route: I.V. Start: 7:40 AM Stop: 7:40 AM Medication: Lopressor (metoprolol) Amount: 5 mg Route: I.V. Start: 8:04 AM Stop: 8:04 AM Medication: Versed Amount: 1 mg Route: I.V. Start: 8:04 AM Stop: 8:04 AM Medication: Fentanyl Amount: 50 mcg Route: I.V. Start: 8:09 AM Stop: 8:09 AM Medication: Adenosine (Adenocard) Amount: 823 I, the attending physician, have reviewed and verified all procedure medications. Yes, all medications given per verbal order History/Risk Factors Renal Disease: No Report Signatures Interventional Workflow Finalized by Nya Bailey MD on 04/17/2020 07:17 PM Diagnostic Workflow Finalized by Dr Dinesh Mcclure MD FACC on 04/04/2020 11:01 PM
[2020-04-04 06:22] LABS: Glucose Point of Care 124 mg/dL (70-110)
--- NOTE | 2020-04-04 07:08 | W.PM.OPSUD ---
Surgery/Procedure H&P Update DATE OF PROCEDURE: April 04, 2020 DATE H&P PERFORMED: 04/01/20 H&P UPDATE INFORMATION: I have reviewed H&P completed within last 30 days, I have examined patient prior to procedure and No changes to prior documentation PREOP DIAGNOSIS: UAP/ abn Stress test PLANNED PROCEDURE: Operation Date: 04/04/20 07:00 Proposed Procedures p Left Cardiac Catheterization 40110(Left) - Dinesh Mcclure MD PATIENT REASSESSED PRIOR TO SEDATION, WITH NO CHANGE NOTED: Yes PHYSICAL EXAM: alert, oriented x 3, clear to auscultation bilaterally and regular rate & rhythm AIRWAY EVAL/ANESTHESIA PLAN: normal airway, see other exam findings, ASA III, Risks, benefits & alternatives of sedation and/or procedure discussed and Patient agrees to continue as planned
--- NOTE | 2020-04-04 09:00 | PC.NURSE ---
Patient arrived to CSU from assistant laboratory director at 0830. 2 nurse verification of right wrist. asymptomatic. VSS. Nurse to continue to monitor.
--- NOTE | 2020-04-04 09:07 | PM.PN ---
Subjective Subjective: Interval history: Patient denies any chest pain or palpitations. Her repeat hemoglobin today was 9.1. She has no obvious ongoing bleeding. No fever or chills. No cough. No other specific complaints. Medications: Reviewed: Yes Medication Review Details: Current Medications Acetaminophen (Tylenol) 650 mg PO Q6H PRN PRN Reason: Mild/Mod Pain Or Temp >/= 101 Hydrocodone Bitart/Acetaminophen (Allen 5-325 Mg) 1 tab PO Q4H PRN PRN Reason: MODERATE TO SEVERE PAIN Last Admin: 04/03/20 22:59 Dose: 1 tab Documented by: Al Hydrox/Mg Hydrox/Simethicone (Maalox) 30 ml PO Q15M PRN PRN Reason: INDIGESTION Allopurinol (Zyloprim) 100 mg PO BID [facility] Last Admin: 04/03/20 17:26 Dose: 100 mg Documented by: Alprazolam (Xanax) 0.25 mg PO TID PRN PRN Reason: ANXIETY Aspirin (Aspirin) 325 mg PO DAILY [facility] Last Admin: 04/03/20 08:49 Dose: 325 mg Documented by: Atorvastatin Calcium (Lipitor) 80 mg PO DAILY [facility] Last Admin: 04/03/20 08:41 Dose: 80 mg Documented by: Atropine Sulfate (Atropine) 0.5 mg IVP PRN PRN PRN Reason: Symptomatic bradycardia Dextrose (D50w) 25 ml IVP ONCE PRN; Protocol PRN Reason: hypoglycemia protocol Dextrose (D50w) 50 ml IVP PRN PRN; Protocol PRN Reason: hypoglycemia protocol Duloxetine HCl (Cymbalta) 60 mg PO DAILY [facility] Last Admin: 04/03/20 08:41 Dose: 60 mg Documented by: Enoxaparin Sodium (Lovenox) 40 mg SUBCUT Q24H [facility] Last Admin: 04/03/20 21:33 Dose: 40 mg Documented by: Glucagon (Glucagen) 1 mg IM ONCE PRN; Protocol PRN Reason: Adult Acute Hypoglycemia Prot. Sodium Chloride (Sodium Chloride 0.9%) 1,000 mls @ 75 mls/hr IV .[id number] [facility] Last Admin: 04/04/20 06:17 Dose: Not Given Documented by: Dextrose (D5w) 500 mls @ 100 mls/hr IV ONCE PRN; Protocol PRN Reason: Adult Acute Hypoglycemia Prot Ceftriaxone Sodium 1,000 mg/ (Sodium Chloride) 50 mls @ 100 mls/hr IV Q24H [facility]; Protocol Last Admin: 04/03/20 21:28 Dose: 100 mls/hr Documented by: Sodium Chloride (Sodium Chloride 0.9%) 1,000 mls @ 50 mls/hr IV .Q20H ONE Stop: 04/05/20 01:59 Last Admin: 04/04/20 06:16 Dose: 50 mls/hr Documented by: Insulin Aspart (Novolog) 0 unit SUBCUT WM&BEDTIME [facility]; Protocol Last Admin: 04/03/20 21:32 Dose: 6 unit Documented by: Lanolin (Lanolin Oint) 1 applic TOPICAL PRN PRN PRN Reason: DRYNESS Losartan Potassium (Cozaar) 100 mg PO DAILY [facility] Last Admin: 04/03/20 08:42 Dose: 100 mg Documented by: Magnesium Hydroxide (Milk Of Magnesia) 30 ml PO DAILY PRN PRN Reason: CONSTIPATION Metoprolol Tartrate (Lopressor) 50 mg PO BID [facility] Last Admin: 04/03/20 17:25 Dose: 50 mg Documented by: Naloxone HCl (Narcan) 0.1 mg IVP Q2M PRN PRN Reason: RESPIRATORY RATE < 8/MIN Nitroglycerin (Nitrostat) 0.4 mg SUBLINGUAL Q5M PRN PRN Reason: CHEST PAIN Non-Formulary Medication (Insulin Degludec [Tresiba Flextouch U-100]) 50 unit SUBCUT DAILY [facility] Last Admin: 04/03/20 08:49 Dose: 50 unit Documented by: Ondansetron HCl (Zofran) 4 mg IVP Q8H PRN PRN Reason: vomiting, or N/V if npo Last Admin: 04/02/20 10:52 Dose: 4 mg Documented by: Ondansetron HCl (Zofran) 4 mg IVP Q2M PRN PRN Reason: NAUSEA Prednisone (Prednisone) 5 mg PO DAILY [facility] Last Admin: 04/03/20 08:41 Dose: 5 mg Documented by: Temazepam (Restoril) 15 mg PO BEDTIME PRN PRN Reason: INSOMNIA Vitals/I&O/Wt Last Vital Signs Temp 97.8 F 04/04/20 04:09 Pulse 71 04/04/20 04:09 Resp 18 04/04/20 04:09 BP 169/76 04/04/20 04:09 Pulse Ox 97 04/04/20 04:09 04/03/20 04/04/20 04/04/20 22:59 06:59 14:59 Intake Total 754.167 / 1605.417 Output Total 1050 / 1650 Balance 754.167 / 1005.417 -1050 / -44.583 Physical Exam Narrative: EXAM NARRATIVE: GENERAL: The patient is alert and oriented times three. Not in any acute distress. Obese HEENT: Mild pallor, icterus or lymphadenopathy. The pupils are symmetrical oral cavity: There are no mucous membrane lesions. NECK: Trachea appears to be central. No masses noted. No JVD or thyromegaly appreciated. No carotid bruit. RESPIRATORY: Chest is symmetrical. No intercostals muscle retraction or any accessory muscle activation. There is no chest wall tenderness. Breath sounds are heard bilaterally. No rales or rhonchi heard. No evidence of any consolidation. Diminished intensity of breath sounds in the bases BREASTS: Deferred. HEART: The PMI could not be palpated no palpable precordial events. S1 and S2 are normal. No S3 or S4 heard. No pericardial rub or any click heard. ABDOMEN: Abdomen is obese. No vessel pulsations or distention. No tenderness. No organomegaly appreciated. No abdominal bruit. Bowel sounds are normally heard. : Deferred. RECTAL: Deferred. LYMPHATIC: No lymphadenopathy noted in the neck or groin. EXTREMITIES: 1+ edema both lower extremities with no cyanosis MUSCULOSKELETAL: No acute joint deformities or swelling SKIN: There are no significant scars or skin rash noted. NEUROPSYCHIATRIC: The patient is alert and oriented x3. Appears to be in a good mood. The higher functions are grossly within normal limits. No tremors or rigidity noted. Const: COMMON NORMALS: alert Resp: COMMON NORMALS: clear to auscultation bilaterally AUSCULTATION: clear to auscultation bilaterally Neuro: SENSORIUM/ORIENTATION: Yes alert Data : 04/04/20 04:29 04/03/20 04:27 A&P Assessment and plan (1) Atypical chest pain: The symptoms are somewhat atypical. She may have a musculoskeletal component for the left shoulder pain. However the ischemic pain appears to have improved. Her EKG has no significant changes. No evidence of myocardial injury so far. Her perfusion scan is suggestive of ischemia in the distribution of the left anterior descending artery and the circumflex artery. And her CT of the chest also revealed coronary calcification suggesting atherosclerosis. She has a strong family history for premature atherosclerotic heart disease. I discussed with the patient in detail the implications of the myocardial perfusion imaging and the need for further evaluation. For further evaluation of her coronary status, she requires a cardiac catheterization. The risk of bleeding, hematoma, vascular injury, myocardial infarction, CVA, renal failure and other concomitant complications were explained in detail. Patient understood this well and consented to proceed. We will go ahead and make arrangements to have the angiogram done as early as possible. Patient continues to be anemic with no significant improvement in the hemoglobin even after blood transfusion. It is s a concern. We may go ahead and repeat the CBC. If she continues to have the low hemoglobin, may require further work-up to identify any source of bleeding, before proceeding with the cardiac catheterization. This was discussed with the patient in detail. I also discussed this with Dr. Villafuerte. Status: Resolved (2) Abnormal nuclear stress test: As mentioned above Status: Acute (3) Type 2 diabetes mellitus: Seems to be under control. Management as per the primary Status: Acute Qualifiers: Diabetes mellitus complication status: with hyperglycemia Diabetes mellitus intermediate insulin use: with intermediate use Qualified Code(s): E11.65 - Type 2 diabetes mellitus with hyperglycemia; Z79.4 - senior living (current) use of insulin (4) Benign essential hypertension with target blood pressure below 140/90: The blood pressure seems to be getting under control. May continue on the current medications. We will closely monitor the pressure. Status: Acute (5) Dyslipidemia: Patient has been on the lipid-lowering agent Status: Acute (6) Neutrophilic leukocytosis: Most likely related to the steroids. No evidence of infection so far. Repeat CBC this morning shows the white cell count coming down. Status: Resolved (7) SOB (shortness of breath): The echocardiogram was reviewed. Patient has mild hypokinesia of the inferobasal segment. After reviewing the cardiac origination data, further management decisions will be made. Status: Resolved (8) Carotid artery disease: Patient was found to have 50 to 79% stenosis on the left side and 16 to 49% stenosis on the right side. For the time being, we may continue on the current medications. Status: Acute Qualifiers: Carotid artery disease type: stenosis Laterality: bilateral Qualified Code(s): I65.23 - Occlusion and stenosis of bilateral carotid arteries Additional A&P Information Based on the patient's clinical progress, further management decisions will be made. According the patient, she is wanting to go to [place] for further evaluation of her anemia/GI work-up. Based on the repeat CBC, further recommendations will be made Addendum Repeated CBC showed a hemoglobin of 9.7. Most likely the previous hemoglobin was lab error or some technical problems. Based on this, since the blood count seems to be stable, we may go ahead and do the cardiac catheterization. Since the lab is totally booked up today, we may do it in the lance crewmember. Based on the results, further recommendations will be made Attestations Medical Necessity Statement*: Disposition as per the primary Coding Level of Care Code Acute Dope Heater for [facility] Fwd Exam Expanded Problem Focused Diagnoses Atypical chest pain R07.89 Abnormal nuclear stress test R94.39 Type 2 diabetes mellitus E11.65; Z79.4 Diabetes mellitus complication status: with hyperglycemia Diabetes mellitus emt intermediate insulin use: with emt intermediate use Benign essential hypertension with target blood pressure below 140/90 I10 Dyslipidemia E78.5 Neutrophilic leukocytosis D72.9 SOB (shortness of breath) R06.02 Carotid artery disease I65.23 Carotid artery disease type: stenosis Laterality: bilateral
[2020-04-04] MEDS: allopurinol 100 mg Tablet PO (09:11)
[2020-04-04] MEDS: duloxetine 60 mg Capsule PO (09:11)
[2020-04-04] MEDS: losartan 50 mg Tablet 100 MG PO (09:11)
[2020-04-04] MEDS: aspirin 325 mg Tablet PO (09:12)
[2020-04-04] MEDS: predniSONE 5 mg Tablet PO (09:12)
[2020-04-04] MEDS: atorvastatin 40 mg Tablet 80 MG PO (09:12)
[2020-04-04] MEDS: NON-FORMULARY MEDICATION (Insulin Degludec [Tresiba Flextouch U-100] 50 UNIT) 50 EACH SUBCUT (09:14)
[2020-04-04] MEDS: metoprolol tartrate 50 mg Tablet PO (09:15)
[2020-04-04] MEDS: sodium chloride 0.9% 1,000 ML 75 ML IV (09:16)
[2020-04-04 09:23] LABS: Glucose Point of Care 163 mg/dL (70-110)
--- NOTE | 2020-04-04 11:09 | P.DS_ITS ---
Discharge Providers Date of Admission: 04/01/20 15:55 Date of Discharge: April 04, 2020 Attending Provider at Admission: Ortega Rosario Attending Provider at Discharge: Darnell Maddox MD Primary Care Provider: Blossom Barney MD Diagnoses at Discharge Discharge Diagnosis (1) Atypical chest pain: Status: Acute (2) Abnormal nuclear stress test: Status: Acute (3) Type 2 diabetes mellitus: Status: Acute Qualifiers: Diabetes mellitus complication status: with hyperglycemia Diabetes mellitus termite treater helper insulin use: with termite treater helper use Qualified Code(s): E11.65 - Type 2 diabetes mellitus with hyperglycemia; Z79.4 - termite treater helper (current) use of insulin (4) Benign essential hypertension with target blood pressure below 140/90: Status: Acute (5) Dyslipidemia: Status: Acute (6) Neutrophilic leukocytosis: Status: Acute (7) SOB (shortness of breath): Status: Acute (8) Carotid artery disease: Status: Acute Qualifiers: Carotid artery disease type: stenosis Laterality: bilateral Qualified Code(s): I65.23 - Occlusion and stenosis of bilateral carotid arteries (9) Chronic anemia: Status: Acute (10) Chronic use of steroids: Status: Acute Reason for Visit Reason for Visit: CP Hospital Course Discharge Summary: 73-year-old female with a past medical history significant for rheumatoid arthritis, gout, chronic steroid therapy,unclear history of lymphoma, hypertension, dyslipidemia, diabetes mellitus and chronic left shoulder pain due to rotator cuff who presented to the hospital with left-sided chest pain. Patient stated initially this was a dull ache however in the past a has become pleuritic in nature at times radiating to left upper extremity Worsens with deep inspiration and improved with lying down. Noted mild respiratory distress. States her whole left-sided chest wall feel sore. laboratory workup on arrival showed a WBC of 18.2, hemoglobin 9.0, hematocrit 31.2 and a platelet count of 439. sodium 136, potassium 4.5, chloride 99, bicarb 26, BUN 24 and creatinine of 1.0. troponin T baseline of 11 with repeat of 10.66 and adult of -0.34. Urinalysis was negative for leukocyte esterase or nitrates. COVID-19 antigen negative. Chest x-ray did not show any acute abnormality. CTA of chest showed increased left basilar discoid atelectasis or scarring and severe calcified coronary artery disease without any evidence of pulmonary embolism. Initial EKG did not show any evidence of acute ischemia. Admitted for further work up.The symptoms are somewhat atypical. She may have a musculoskeletal component for the left shoulder pain. However the ischemic pain appears to have improved. Her EKG has no significant changes. No evidence of myocardial injury so far. Her perfusion done on April 01, 2020 scan is suggestive of ischemia in the distribution of the left anterior descending artery and the circumflex artery. And her CT of the chest also revealed coronary calcification suggesting atherosclerosis. She has a strong family history for premature atherosclerotic heart disease. On admission she was found to have borderline low hemoglobin of around 9. She received 1 unit of blood transfusion and her hemoglobin remained stable. She did not have any episodes of hematemesis or melena. Iron panel was not consistent with iron deficiency anemia. Cardiac echocardiogram showed an EF of 60% with grade 2 diastolic dysfunction with mild hypokinesia of inferior basal segment, trace MR. She underwent carotid Dopplers which showed moderate to heavy heterogeneous plaque in the left ICA and the bifurcation with velocity consistent with 50 to 79% stenosis and a mild to moderate diffuse plaque in the right ICA and bifurcation velocity elevated consistent with 16 to 50% stenosis. As her hemoglobin remained stable she underwent cardiac angiogram on April 04, 2020 which is consistent with nonobstructive CAD. Patient is be discharged hemodynamically stable condition advised to follow-up with cardiology and her primary care provider. Physical Exam Narrative: EXAM NARRATIVE: General- No apparent distress HEENT -grossly unremarkable Chest- tender to palpation on left chest wall Respiratory -clear to auscultation bilaterally CVS -regular rate rhythm no obvious murmurs Abdomen-soft non-tender non-distended Extremities-no edema Discharge Data Data Completed and Pending: Completed Studies During Hospitalization Category Date Time Status CT angio chest PE protcl [id number] Urge nt Cat Scan 03/31/20 16:19 Completed Sestamibi Stress Test Request Routi ne Exams 04/01/20 00:05 Draft XR chest 1V jonh ble [id number] Stat Exams 03/31/20 15:24 Completed NM ramin perf SPECT r/s* [id number] Routin e Nuc Med 04/01/20 00:05 Completed CV carotid duplex BI* [id number] Routine Ultrasound 04/02/20 06:05 Completed CV echo complete* [id number] Routine Ultrasound 04/02/20 06:05 Completed Pending at discharge Category Date Time Status RANCH SUPERVISOR request for service Routin e Exams 04/04/20 06:21 Ordered Sestamibi Stress Test Request Routi ne Exams 04/01/20 06:30 Ordered Immunochemical Fe ursula OCB Routine Lab 04/03/20 04:00 Uncollected Labs from last 24 hours 04/04/20 04/04/20 04/04/20 09:12 06:13 04:29 WBC 14.6 H RBC 3.48 L Hgb 9.1 L Hct 31.0 L MCV 89.1 MCH 26.1 L MCHC 29.4 L RDW 16.6 H Plt Count 430 H MPV 10.5 H Neut % (Auto) 69.0 Lymph % (Auto) 18.3 [place] % (Auto) 8.2 Eos % (Auto) 3.0 Baso % (Auto) 0.5 Neut # (Auto) 10.09 H Lymph # (Auto) 2.7 [place] # (Auto) 1.2 H Eos # (Auto) 0.4 Baso # (Auto) 0.1 Nucleated RBC % (a uto) 0 Nucleated RBCs # 0.0 POC Glucose 163 124 04/03/20 04/03/20 04/03/20 20:54 17:08 11:29 WBC RBC Hgb Hct MCV MCH MCHC RDW Plt Count MPV Neut % (Auto) Lymph % (Auto) [place] % (Auto) Eos % (Auto) Baso % (Auto) Neut # (Auto) Lymph # (Auto) [place] # (Auto) Eos # (Auto) Baso # (Auto) Nucleated RBC % (a uto) Nucleated RBCs # POC Glucose 197 284 255 Vitals: Last Vital Signs Temp 97.8 F 04/04/20 04:09 Pulse 60 04/04/20 10:00 Resp 23 H 04/04/20 10:00 BP 146/68 04/04/20 10:00 Pulse Ox 97 04/04/20 10:00 Discharge Plan Discharge Patient Disposition: Home Condition: Stable Prescriptions: New Januvia 50 mg tablet 50 mg PO DAILY Qty: 30 RF: 0 levofloxacin 500 mg tablet 500 mg PO DAILY 3 Days Qty: 3 RF: 0 Continued insulin aspart U-100 [Novolog U-100 Insulin aspart] 100 unit/mL solution 20 unit SUBCUT TID RF: 0 pravastatin 20 mg tablet 20 mg PO DAILY RF: 0 duloxetine [Cymbalta] 60 mg capsule,delayed release(DR/EC) 60 mg PO DAILY RF: 0 diclofenac sodium [Voltaren] 1 % gel 2 - 4 gm TOPICAL BID PRN (Reason: UNKNOWN) RF: 0 prednisone 5 mg tablet 5 mg PO DAILY Qty: 30 RF: 3 aspirin 81 mg Tablet,Delayed Release (Dr/Ec) 81 mg PO DAILY PRN (Reason: UNKNOWN) RF: 0 metoprolol tartrate 50 mg tablet 50 mg PO BID RF: 0 losartan 100 mg tablet 100 mg PO DAILY RF: 0 metformin 500 mg tablet extended release 24 hr 500 mg PO BID RF: 0 Vitamin B-2 1 tab PO DAILY RF: 0 turmeric 1 tab PO DAILY RF: 0 allopurinol 100 mg tablet 100 mg PO BID RF: 0 Changed Tresiba FlexTouch U-100 100 unit/mL (3 mL) insulin pen 60 unit SUBCUT DAILY Qty: 0 RF: 0 Discharge Orders: Discharge Order (Routine); Ordered 04/04/20 Ordered By: Darnell Maddox Referrals: Blossom Barney MD [Primary Care Provider] - 2 weeks (You have a hospital [facility] with Dr. Barney at [facility] on April 15 at 1:15) Dinesh Mcclure MD [Physician] - 1 month (You have at cardiology followup with Dr. Mcclure at [facility] on May 09 at 3:30pm) Elisabeth Alanis FNP [Nurse Practitioner] - 1 week (You have a post procedure followup with SLY Palmer at [facility] on April 11 at 10:15am) Discharge Diet: Cardiac and Diabetic Discharge Activity: Resume usual activity Patient Instructions: Levofloxacin (By mouth), Sitagliptin (By mouth), Chest Pain Stoplight, Post Angiogram Home Care Instructions Activity Restrictions/Additional Instructions: Please follow-up with your primary care provider within next 2 weeks. Repeat CMP with primary care provider. Please follow-up with your can pusher within next 1 month. Discharge Date/Time: 04/04/20 13:15 Discharge Attestations Time Spent in Discharge Care*: greater than 30 min Specific Discharge Activities: Specific discharge activities: educating patient, discussing with pcp/other providers, discussing with briefcase sewer/social workers/dc planners, documenting/other paperwork and evaluating patient/reviewing data Status at Discharge: Cognitive status at discharge: cognitively intact , Behavioral status at discharge: cooperative , Functional status at discharge: independent ambulation Overall status at discharge: patient is back to baseline Quality Metrics Clinical Quality Measures During this hospital stay, did patient experience: None Coding Level of Care Code Acute Home Theater Specialist for g Fwd Diagnoses Atypical chest pain R07.89 Abnormal nuclear stress test R94.39 Type 2 diabetes mellitus E11.65; Z79.4 Diabetes mellitus complication status: with hyperglycemia Diabetes mellitus termite treater helper insulin use: with skilled nursing use Benign essential hypertension with target blood pressure below 140/90 I10 Dyslipidemia E78.5 Neutrophilic leukocytosis D72.9 SOB (shortness of breath) R06.02 Carotid artery disease I65.23 Carotid artery disease type: stenosis Laterality: bilateral Chronic anemia D64.9 Chronic use of steroids
--- NOTE | 2020-04-04 11:15 | PC.NURSE ---
TR band removed per protocol at 1115. Site asymptomatic. Dressing applied, CDI. Nurse to continue to monitor.
[2020-04-04 11:25] LABS: Glucose Point of Care 246 mg/dL (70-110)
--- NOTE | 2020-04-04 12:05 | PC.SOCIAL ---
IMM Update Pg. 2 of IMM updated. Patient out of room, copy left at bedside.
--- NOTE | 2020-04-04 13:12 | PC.NURSE ---
Discharge instructions given per the physician's orders. Patient verbalize understanding of teaching and did not have any further questions. IV has been removed. Patient dressing self. No needs identified at this time. Nurse to continue to monitor.
== END 2020-04-04 13:15 | disposition home or self-care (01) | DRG 287 ==
LOC: ER 20:07 → MEDSURG 21:04 → CSU 04-04 08:21
PROVIDERS: Emergency Medicine; Internal Medicine Cardiovascular Disease; Admitting Provider Hospitalist; PCP Internal Medicine; Visit Provider Student in an Organized Health Care Education/Training Program
PROC: 4A023N7 Measurement of Cardiac Sampling and Pressure, Left Heart, Percutaneous Approach (ICD-10-PCS; principal; 2020-04-04 07:00)
DX: R07.89 Other chest pain (principal); N39.0 Urinary tract infection, site not specified; I25.10 Atherosclerotic heart disease of native coronary artery without angina pectoris; M06.042 Rheumatoid arthritis without rheumatoid factor, left hand; M06.041 Rheumatoid arthritis without rheumatoid factor, right hand; Z79.52 Long term (current) use of systemic steroids; Z85.72 Personal history of non-Hodgkin lymphomas; I10 Essential (primary) hypertension; E78.5 Hyperlipidemia, unspecified; E11.9 Type 2 diabetes mellitus without complications; M25.512 Pain in left shoulder; Z96.659 Presence of unspecified artificial knee joint; Z96.649 Presence of unspecified artificial hip joint; M19.90 Unspecified osteoarthritis, unspecified site; M10.9 Gout, unspecified; I65.23 Occlusion and stenosis of bilateral carotid arteries; D64.9 Anemia, unspecified; B96.1 Klebsiella pneumoniae [K. pneumoniae] as the cause of diseases classified elsewhere; Z92.21 Personal history of antineoplastic chemotherapy; Z79.82 Long term (current) use of aspirin; Z79.4 Long term (current) use of insulin
CPT/HCPCS: 12345; 36415; 36416; 36430; 71045; 71275; 78452; 80048; 80053; 80061; 81001; 82728; 82962; 83036; 83540; 83550; 83690; 83735; 83880; 84145; 84484; 85018; 85025; 86850; 86900; 86920; 87077; 87086; 87186; 87426; 93005; 93017; 93306; 93452; 93571; 93880; 94660; 96372; 96375; 99284; A9500; C1769; C1887; C1894; G0378; J0153; J0696; J1644; J1650; J1815; J2250; J2405; J2785; J3010; J3490; J7030; J7512; P9016; Q0163; Q9967

== ENCOUNTER → 2020-04-11 11:38 | Outpatient (BNVA) | payer MEDICARE, OTHER, SELFPAY | PROVIDERS: PCP Internal Medicine; Visit Provider Nurse Practitioner Family | DX: I25.10 Atherosclerotic heart disease of native coronary artery without angina pectoris (principal) | CPT/HCPCS: 80048 ==

== ENCOUNTER 2020-05-09 20:00 | Outpatient (CLI) | payer MEDICARE, OTHER, SELFPAY | END 2020-05-09 20:01 | disposition home or self-care (01) | LOC: SLEEP 05-10 09:12 | PROVIDERS: PCP Internal Medicine; Visit Provider Internal Medicine | DX: M06.041 Rheumatoid arthritis without rheumatoid factor, right hand (principal); M06.042 Rheumatoid arthritis without rheumatoid factor, left hand; M15.9 Polyosteoarthritis, unspecified; Z79.899 Other long term (current) drug therapy; Z79.52 Long term (current) use of systemic steroids; E11.65 Type 2 diabetes mellitus with hyperglycemia; Z79.4 Long term (current) use of insulin; D72.829 Elevated white blood cell count, unspecified; D64.9 Anemia, unspecified; G47.33 Obstructive sleep apnea (adult) (pediatric) | CPT/HCPCS: 20600; 95811; 99214 ==

== ENCOUNTER 2020-05-16 10:15 | Outpatient (CLI) | payer MEDICARE, OTHER, SELFPAY ==
--- NOTE | 2020-05-16 10:24 | XR_ITS ---
WS: [id number] RIGHT ANKLE: 3 VIEW(S) TECHNIQUE: AP, oblique(s) and lateral. HISTORY: EDEMA COMPARISON: 09/06/2019 RIGHT foot. Normal anatomic alignment with no fracture or dislocation. Numerous well-corticated osseous densities at the medial malleolus from prior trauma. Mild narrowing of the joint spaces. Moderate size calcaneal spur. Enthesopathy at the Achilles tendon. Mild spurring involving the bones of the midfoot. XR/XR ankle RT min 3V* [id number] IMPRESSION: 1. No acute fracture. 2. No joint effusion. 3. Degenerative changes at the ankle joint and midfoot as above.
== END 2020-05-16 10:16 | disposition home or self-care (01) ==
LOC: RAD 10:22
PROVIDERS: PCP Internal Medicine; Visit Provider Nurse Practitioner Family
DX: R60.0 Localized edema (principal); M25.571 Pain in right ankle and joints of right foot
CPT/HCPCS: 73610

== ENCOUNTER 2020-06-10 15:17 | Outpatient (CLI) | payer MEDICARE, OTHER, SELFPAY ==
--- NOTE | 2020-06-10 15:28 | XR_ITS ---
WS: [id number] DEXA (DUAL ENERGY X-RAY ABSORPTIOMETRY) Bone mineral density was performed using a [employer] machine. HISTORY: OSTEOPOROSIS COMPARISON: 02/12/2015 Lumbar spine BMD (L1-L4): 1.768 g/cm2 T score: 4.9 Z score: 5.5 Total hip BMD: Right: 1.123. T score: 0.9 Z score: 1.9 10 year probability of a major osteoporotic fracture is 16%. Compared to the prior study from 02/12/2015. Lumbar spine bone mineral density has decreased by 1.1%. Bilateral hips bone mineral density has decreased by 11.4%. XR/XR DEXA axial skeleton* [id number] IMPRESSION: NORMAL BONE MINERAL DENSITY based upon the WHO classification for females. Significant decrease in bone mineral density involving the RIGHT hip.
== END 2020-06-10 15:18 | disposition home or self-care (01) ==
LOC: RADWPI 15:19
PROVIDERS: PCP Internal Medicine; Visit Provider Internal Medicine
DX: M81.0 Age-related osteoporosis without current pathological fracture (principal)
CPT/HCPCS: 77080

== ENCOUNTER 2020-06-12 12:13 | Outpatient (CLI) | payer MEDICARE, OTHER, SELFPAY ==
--- NOTE | 2020-06-12 12:24 | XR_ITS ---
WS: [id number] Right knee, 3 views, 06/12/2020 Clinical Data: PAIN IN R KNEE Comparison: Right knee, 07/25/2018. Findings: Right knee arthroplasty shows no change. No loosening is seen. No fractures or dislocations are seen. The joint spaces are normal. The patella is intact. The soft t issues are unremarkable. XR/XR knee RT 3V* [id number] Impression: No change in right knee arthroplasty.
== END 2020-06-12 12:14 | disposition home or self-care (01) ==
LOC: LAB 12:18 → RAD 12:21
PROVIDERS: PCP Internal Medicine; Visit Provider Internal Medicine
DX: M25.561 Pain in right knee (principal); Z96.651 Presence of right artificial knee joint
CPT/HCPCS: 73562

== ENCOUNTER → 2020-08-08 15:13 | Outpatient (BNVA) | payer MEDICARE, OTHER, SELFPAY | PROVIDERS: PCP Internal Medicine; Visit Provider Internal Medicine Rheumatology | DX: M06.041 Rheumatoid arthritis without rheumatoid factor, right hand (principal); M06.042 Rheumatoid arthritis without rheumatoid factor, left hand; Z79.899 Other long term (current) drug therapy; M10.00 Idiopathic gout, unspecified site; E11.65 Type 2 diabetes mellitus with hyperglycemia; Z79.4 Long term (current) use of insulin | CPT/HCPCS: 99214 ==

== ENCOUNTER 2020-09-13 09:38 | Outpatient (CLI) | payer MEDICARE, OTHER, SELFPAY ==
[2020-09-13 10:07] LABS: Basophils # 0.1 10^3/uL (0.0-0.1); Basophils % 0.4 %; Eosinophils # 0.2 10^3/uL (0.0-0.8); Eosinophils % 1.3 %; Hematocrit 30.2 % (37.0-47.0); Hemoglobin 8.9 g/dL (11.5-15.3); Lymphocytes # 2.4 10^3/uL (0.8-4.8); Lymphocytes % 15.8 %; Mean Corpuscular HGB Conc 29.5 g/dL (30.0-36.0); Mean Corpuscular Hemoglobin 26.7 pg (28.0-34.0); Mean Corpuscular Volume 90.7 fL (81-99); Mean Platelet Volume 10.1 fL (7.4-10.4); Monocytes # 1.1 10^3/uL (0.2-0.9); Monocytes % 7.5 %; Neutrophils # 10.96 10^3/uL (1.8-7.7); Nucleated Red Blood Cells % 0 %; Platelet Count 422 10^3/cmm (130-400); Red Blood Count 3.33 10^6/uL (4.1-5.3); Red Cell Distribution Width 17.9 % (12.1-15.1); White Blood Count 14.8 10^3/uL (4.0-10.0)
[2020-09-13 10:23] LABS: Alanine Aminotransferase 10 U/L (0-33); Albumin Level 3.3 g/dL (3.5-5.2); Alkaline Phosphatase 85 IU/L (35-105); Aspartate Amino Transferase 9 U/L (0-32); C Reactive Protein 102.5 mg/L (0.0-4.9); Total Bilirubin 0.3 mg/dL (0.15-1.2); Total Protein 7.3 g/dL (6.6-8.7)
== END 2020-09-13 09:39 | disposition home or self-care (01) ==
LOC: LAB 09:50
PROVIDERS: PCP Internal Medicine; Visit Provider Internal Medicine Rheumatology
DX: M06.041 Rheumatoid arthritis without rheumatoid factor, right hand (principal); M06.042 Rheumatoid arthritis without rheumatoid factor, left hand; Z79.899 Other long term (current) drug therapy
CPT/HCPCS: 36415; 80076; 82565; 85025; 86140

== ENCOUNTER → 2020-11-21 10:11 | Outpatient (BNVA) | payer MEDICARE, OTHER, SELFPAY | PROVIDERS: PCP Internal Medicine; Visit Provider Internal Medicine Rheumatology | DX: M00.9 Pyogenic arthritis, unspecified (principal); G89.29 Other chronic pain; R22.41 Localized swelling, mass and lump, right lower limb; M06.041 Rheumatoid arthritis without rheumatoid factor, right hand; M06.042 Rheumatoid arthritis without rheumatoid factor, left hand; Z79.899 Other long term (current) drug therapy | CPT/HCPCS: 87040; 99214 ==

== ENCOUNTER 2020-11-21 13:54 | Outpatient (CLI) | payer MEDICARE, OTHER, SELFPAY | END 2020-11-21 13:55 | disposition home or self-care (01) | LOC: LAB 13:59 | PROVIDERS: PCP Internal Medicine; Visit Provider Internal Medicine Rheumatology | DX: M00.9 Pyogenic arthritis, unspecified (principal) | CPT/HCPCS: 87040 ==

== ENCOUNTER 2020-11-27 14:05 | Outpatient (CLI) | payer MEDICARE, OTHER, SELFPAY ==
--- NOTE | 2020-11-27 14:13 | MRR_ITS ---
PROCEDURE INFORMATION: Exam: MR Right Lower Extremity Joint Without Contrast; Ankle Exam date and time: 11/27/2020 2:13 PM Age: 75 years old Clinical indication: Right ankle foot pain. Bone marrow edema at multiple locations and soft tissue mass reported on her MRI at [facility] on 09/27. Patient continues to have severe pain and swelling involving the right ankle. Patient is afebrile. Negative blood cultures. Minimal warmth over ankle. History of rheumatoid arthritis. TECHNIQUE: Imaging protocol: MR of the Right lower extremity without contrast. Exam focused on the ankle. COMPARISON: CR XR ankle RT min 3V* [id number] 05/16/2020 10:55 AM FINDINGS: There is thickening of the anterior tibiofibular, posterior tibiofibular anterior talofibular ligaments likely reflecting chronic injury. The posterior talofibular and calcaneofibular ligaments are intact. The deltoid ligament is indistinct which may reflect prior injury. There is mild Achilles tendinosis with possible retrocalcaneal bursitis. Plantar fascia is thickened (7.1 mm); query plantar fasciitis. There are fluid collections in the sinus tarsi measuring 1.5 x 0.6 cm and 0.7 x 1.2 cm. There are ganglia or erosions in the calcaneus, talar head, navicular, middle cuneiform and proximal 3rd metatarsal. There is an erosion involving the anterior aspect of the distal tibia. There is extensive edema involving the distal tibia, fibula, bones of the hindfoot, bones of the midfoot and proximal 2nd through 4th metatarsals. Moderate tibiotalar joint effusion with synovitis. Small posterior subtalar joint effusion. There is extensive subcutaneous edema involving the distal leg and foot with possible foci of soft tissue gas noted anteriorly. If there is clinical concern for necrotizing fasciitis, recommend CT. There is abnormal signal within superficial vein along the medial ankle near the anteromedial ankle marker that may reflect thrombosis/thrombophlebitis. Consider ultrasound. Split tear of the peroneus brevis tendon. Tenosynovitis of the peroneus longus tendon. Tenosynovitis of the posterior tibialis tendon. The extensor digitorum longus tendon is intact. The flexor hallucis longus tendon is intact. The extensor tendons are overall intact. MR/MR ankle RT wo con* [id number] IMPRESSION: 1. There is extensive edema involving the distal tibia, fibula, bones of the hindfoot, bones of the midfoot and proximal 2nd through 4th metatarsals. There are ganglia or erosions in the calcaneus, talar head, navicular, middle cuneiform and proximal 3rd metatarsal. There is an erosion involving the anterior aspect of the distal tibia. These findings may rheumatoid arthritis with developing Charcot arthropathy. Extensive osteomyelitis is not excluded. Correlate clinically. 2. Moderate tibiotalar joint effusion with synovitis. Small posterior subtalar joint effusion. Septic arthritis is a strong consideration 3. There is extensive subcutaneous edema involving the distal leg and foot with possible foci of soft tissue gas noted anteriorly. If there is clinical concern for necrotizing fasciitis, recommend CT. 4. There is abnormal signal within superficial vein along the medial ankle near the anteromedial ankle marker that may reflect thrombosis/thrombophlebitis. Consider ultrasound. 5. Tenosynovitis of the peroneus longus and posterior tibialis tendons. 6. Split tear of the peroneus brevis tendon. 7. Probable ganglia in the sinus tarsi. 8. There is mild Achilles tendinosis with possible retrocalcaneal bursitis. 9. Plantar fascia is thickened (7.1 mm); query plantar fasciitis. Findings discussed with JAIME SÁNCHEZ at 11/27/2020 5:11 PM CDT.
== END 2020-11-27 14:06 | disposition home or self-care (01) ==
LOC: RADWPI 14:08
PROVIDERS: PCP Internal Medicine; Visit Provider Internal Medicine Rheumatology
DX: M06.00 Rheumatoid arthritis without rheumatoid factor, unspecified site (principal); M25.571 Pain in right ankle and joints of right foot; R22.41 Localized swelling, mass and lump, right lower limb
CPT/HCPCS: 73721

== ENCOUNTER 2020-11-28 11:24 | Outpatient (CLI) | payer MEDICARE, OTHER, SELFPAY ==
--- NOTE | 2020-11-28 11:00 | USCV_ITS ---
Adina rGacia Age: 75 Gender: F : 1945 Exam Date: 11/28/2020 11:42 Ordering Phys: Amos Cifuentes MD Technologist: CRISTIAN Exam Location: [facility] [place] Indication: Pain on right HISTORY: Right lower extremity pain. PROCEDURES: Venous duplex imaging was performed in only the right lower extremity. The following venous structures were evaluated: common femoral vein, profunda vein, proximal portion of the greater saphenous vein, superficial femoral vein, and the popliteal vein. In addition, the posterior tibial and peroneal trunk were evaluated. Serial compression, augmentation maneuvers, and spectral Doppler flow evaluation were performed. FINDINGS: No evidence of DVT seen in any vessel visualized at this time. CONCLUSIONS No evidence of right lower extremity DVT. Naun Ojeda MD (Electronically Signed) Final Date: 28 November 2020 13:13 S
== END 2020-11-28 11:25 | disposition home or self-care (01) ==
PROVIDERS: PCP Internal Medicine; Visit Provider Internal Medicine Rheumatology
DX: M25.571 Pain in right ankle and joints of right foot (principal); G89.29 Other chronic pain; R22.41 Localized swelling, mass and lump, right lower limb
CPT/HCPCS: 93971

== ENCOUNTER 2020-12-03 10:37 | Outpatient (CLI) | payer MEDICARE, OTHER, SELFPAY ==
[2020-12-03 11:13] LABS: Basophils # 0.1 10^3/uL (0.0-0.1); Basophils % 0.7 %; Eosinophils # 0.4 10^3/uL (0.0-0.8); Eosinophils % 2.6 %; Hematocrit 30.7 % (37.0-47.0); Hemoglobin 8.9 g/dL (11.5-15.3); Lymphocytes # 2.5 10^3/uL (0.8-4.8); Lymphocytes % 17.1 %; Mean Corpuscular Hemoglobin 25.8 pg (28.0-34.0); Mean Platelet Volume 9.6 fL (7.4-10.4); Monocytes # 1.2 10^3/uL (0.2-0.9); Neutrophils # 10.08 10^3/uL (1.8-7.7); Neutrophils % 69.6 %; Nucleated Red Blood Cells % 0 %; Platelet Count 516 10^3/cmm (130-400); Red Blood Count 3.45 10^6/uL (4.1-5.3); Red Cell Distribution Width 17.3 % (12.1-15.1); White Blood Count 14.5 10^3/uL (4.0-10.0)
[2020-12-03 11:31] LABS: Alanine Aminotransferase 12 U/L (0-33); Alkaline Phosphatase 123 IU/L (35-105); Aspartate Amino Transferase 10 U/L (0-32); C Reactive Protein 90.4 mg/L (0.0-4.9); Globulin 4.8 g/dL (1.3-4.6); Total Bilirubin 0.2 mg/dL (0.15-1.2); Total Protein 7.8 g/dL (6.6-8.7)
== END 2020-12-03 10:38 | disposition home or self-care (01) ==
PROVIDERS: PCP Internal Medicine; Visit Provider Internal Medicine Rheumatology
DX: M06.041 Rheumatoid arthritis without rheumatoid factor, right hand (principal); M06.042 Rheumatoid arthritis without rheumatoid factor, left hand; Z79.899 Other long term (current) drug therapy
CPT/HCPCS: 36415; 80076; 82565; 85025; 86140

== ENCOUNTER → 2021-01-15 13:47 | Outpatient (BNVA) | payer MEDICARE, OTHER, SELFPAY | PROVIDERS: PCP Internal Medicine; Visit Provider Internal Medicine Rheumatology | DX: E11.610 Type 2 diabetes mellitus with diabetic neuropathic arthropathy (principal); E11.22 Type 2 diabetes mellitus with diabetic chronic kidney disease; N18.9 Chronic kidney disease, unspecified; Z79.4 Long term (current) use of insulin; M06.041 Rheumatoid arthritis without rheumatoid factor, right hand; M06.042 Rheumatoid arthritis without rheumatoid factor, left hand; M15.9 Polyosteoarthritis, unspecified; Z79.899 Other long term (current) drug therapy; D72.829 Elevated white blood cell count, unspecified; D64.9 Anemia, unspecified; Z71.89 Other specified counseling | CPT/HCPCS: 99214 ==

== ENCOUNTER 2021-01-27 08:48 | Outpatient (CLI) | payer MEDICARE, OTHER, SELFPAY ==
[2021-01-27 09:08] VITALS: BP 145/59; PULSE 71; RESP 18; TEMP 36.6; O2SAT 98
[2021-01-27] MEDS: sodium chloride 0.9% 250 ML 75 ML IV (09:30)
[2021-01-27] MEDS: acetaminophen 325 mg Tablet 650 MG PO (09:32)
[2021-01-27] MEDS: diphenhydrAMINE 50 mg/mL SDV 1mL 25 MG IVP (09:33)
[2021-01-27 10:14] VITALS: BP 137/52; PULSE 68; RESP 18; TEMP 36.9; O2SAT 98
[2021-01-27 10:43] VITALS: BP 143/60; PULSE 66; RESP 18; TEMP 36.4; O2SAT 98
[2021-01-27 12:08] VITALS: BP 150/63; PULSE 71; RESP 18; TEMP 36.4; O2SAT 98
== END 2021-01-27 08:49 | disposition home or self-care (01) ==
LOC: ONCMED 08:51
PROVIDERS: PCP Internal Medicine; Visit Provider Internal Medicine Rheumatology
DX: M06.041 Rheumatoid arthritis without rheumatoid factor, right hand (principal); M06.042 Rheumatoid arthritis without rheumatoid factor, left hand
CPT/HCPCS: 96365; 96366; 96375; J1200; J2920; J7050; Q5104

== ENCOUNTER 2021-02-10 09:53 | Outpatient (CLI) | payer MEDICARE, OTHER, SELFPAY ==
[2021-02-10 10:05] VITALS: BP 148/69; PULSE 63; RESP 18; TEMP 36.2; O2SAT 99
[2021-02-10] MEDS: sodium chloride 0.9% 250 ML 75 ML IV (10:47)
[2021-02-10] MEDS: diphenhydrAMINE 50 mg/mL SDV 1mL 25 MG IVP (10:49)
[2021-02-10] MEDS: acetaminophen 325 mg Tablet 650 MG PO (10:55)
[2021-02-10 11:07] LABS: Basophils # 0.1 10^3/uL (0.0-0.1); Basophils % 0.5 %; Eosinophils # 0.3 10^3/uL (0.0-0.8); Eosinophils % 1.6 %; Hematocrit 28.8 % (37.0-47.0); Hemoglobin 8.2 g/dL (11.5-15.3); Lymphocytes # 2.2 10^3/uL (0.8-4.8); Lymphocytes % 12.4 %; Mean Corpuscular HGB Conc 28.5 g/dL (30.0-36.0); Mean Corpuscular Hemoglobin 24.8 pg (28.0-34.0); Mean Corpuscular Volume 87.3 fl (81-99); Mean Platelet Volume 10.5 fL (7.4-10.4); Monocytes % 5.5 %; Neutrophils # 13.85 10^3/uL (1.8-7.7); Neutrophils % 79.1 %; Nucleated Red Blood Cells % 0 %; Platelet Count 542 10^3/cmm (130-400); Red Cell Distribution Width 18.1 % (12.1-15.1); White Blood Count 17.5 10^3/uL (4.0-10.0)
[2021-02-10 11:22] LABS: Alanine Aminotransferase 10 U/L (0-33); Albumin Level 3.1 g/dL (3.5-5.2); Alkaline Phosphatase 105 IU/L (35-105); Aspartate Amino Transferase 12 U/L (0-32); Globulin 5.1 g/dL (1.3-4.6); Total Bilirubin 0.3 mg/dL (0.15-1.2); Total Protein 8.2 g/dL (6.6-8.7)
[2021-02-10 11:24] LABS: Creatinine Clr Calc Pharmacy 42.1169
[2021-02-10 11:45] VITALS: BP 131/63; PULSE 61; RESP 18; TEMP 36.7; O2SAT 100
[2021-02-10 12:39] LABS: Erythrocyte Sedimentation Rate > 120 mm/hr (0-15)
[2021-02-10 13:12] VITALS: BP 146/68; PULSE 51; RESP 18; TEMP 36.2; O2SAT 99
== END 2021-02-10 09:54 | disposition home or self-care (01) ==
PROVIDERS: PCP Internal Medicine; Referring Provider Internal Medicine Rheumatology; Visit Provider Internal Medicine Rheumatology
DX: M06.041 Rheumatoid arthritis without rheumatoid factor, right hand (principal); M06.042 Rheumatoid arthritis without rheumatoid factor, left hand
CPT/HCPCS: 80076; 82565; 85025; 85651; 96365; 96366; 96375; J1200; J2920; J7050; Q5104

== ENCOUNTER 2021-02-12 10:19 | Outpatient (CLI) | payer MEDICARE, OTHER, SELFPAY ==
--- NOTE | 2021-02-12 10:28 | MR_ITS ---
WS: [id number] MRI CERVICAL SPINE NONCONTRAST TECHNIQUE: Sagittal T1, T2 and STIR imaging. Axial T2, gradient, and fiesta imaging. CLINICAL INFORMATION: DEGENERATION OF CERVICAL INTERVERTEBRAL DISC COMPARISON: MRI 2014 FINDINGS: Straightening of the normal cervical lordosis. No high-grade central canal narrowing. Cord signal is normal. Postoperative changes ACDF C5-C7. Postoperative changes are new since 2014 C2-C3: Tiny shallow central protrusion. Spinal canal is patent. Mild left and no significant right fo raminal narrowing. Mild facet arthropathy. C3-C4: Minimal disc osteophytic ridging. Mild left and no significant right foraminal narrowing. Mild facet arthropathy. Spinal canal is patent. C4-C5: Mild disc osteophytic ridging. Mild bilateral bony foraminal narrowing. Moderate facet arthrop athy. Spinal canal is patent. C5-C6: Postoperative changes ACDF. Hardware degrades images. Mild left and no significant right sylwia inal narrowing. Mild facet arthropathy. Spinal canal is patent. C6-C7: Postoperative changes ACDF. Mild to moderate left and no significant right foraminal narrowing . Moderate facet arthropathy. Spinal canal is patent. C7-T1: No significant disc bulging. Osteophytic ridging with mild to moderate right and mild left bon y foraminal narrowing. Mild facet arthropathy. Tiny shallow central protrusions in the upper thoracic spine at T1-2, T2-3, and T3-4 without signific ant spinal canal narrowing. Visualized brain stem structures: Normal. Prevertebral soft tissues: Normal. MR/MR cervical spin wo con* [id number] IMPRESSION: 1. Straightening of the normal cervical lordosis. Cord signal is normal. No si gnificant central canal stenosis. 2. Postoperative changes ACDF C5-C7. 3. Mild to moderate left C6-7 and right C7-T1 bony foraminal narrowing. 4. Otherwise mild bony foraminal narrowing left C3-4, bilateral C4-5, and left C5-6
== END 2021-02-12 10:20 | disposition home or self-care (01) ==
PROVIDERS: PCP Internal Medicine; Visit Provider Internal Medicine
DX: M50.30 Other cervical disc degeneration, unspecified cervical region (principal)
CPT/HCPCS: 72141

== ENCOUNTER 2021-02-25 08:56 | Outpatient (CLI) | payer MEDICARE, OTHER, SELFPAY ==
[2021-02-25 09:11] VITALS: BP 123/66; PULSE 69; RESP 18; TEMP 36.9; O2SAT 99
[2021-02-25 10:42] LABS: Calcium 8.9 mg/dL (8.5-10.5); Magnesium 1.3 mg/dL (1.7-2.3)
[2021-02-25 10:59] LABS: 25 Hydroxy Vitamin D 44 ng/mL (30-100)
[2021-02-25 14:29] VITALS: BP 155/59; PULSE 75; RESP 18; TEMP 37.6; O2SAT 96
== END 2021-02-25 08:57 | disposition home or self-care (01) ==
PROVIDERS: PCP Internal Medicine; Referring Provider Internal Medicine Rheumatology; Visit Provider Internal Medicine Rheumatology
DX: M14.60 Charcot's joint, unspecified site (principal)
CPT/HCPCS: 82306; 82310; 83735; 84132; 96365; 96366; J2430; J7040

== ENCOUNTER 2021-03-05 11:17 | Outpatient (CLI) | payer MEDICARE, OTHER, SELFPAY ==
[2021-03-05 12:14] LABS: Magnesium 1.7 mg/dL (1.7-2.3)
== END 2021-03-05 11:18 | disposition home or self-care (01) ==
LOC: LAB 11:25
PROVIDERS: PCP Internal Medicine; Visit Provider Internal Medicine Rheumatology
DX: R79.0 Abnormal level of blood mineral (principal)
CPT/HCPCS: 36415; 83735

== ENCOUNTER 2021-03-07 06:34 | Outpatient (CLI) | payer MEDICARE, OTHER, SELFPAY ==
[2021-03-07 06:54] VITALS: BP 144/61; PULSE 60; RESP 18; TEMP 36.2; O2SAT 99; BMI 36.9
[2021-03-07] MEDS: acetaminophen 500 mg Tablet PO (07:18)
[2021-03-07] MEDS: diphenhydrAMINE 25 mg Capsule PO (07:18)
[2021-03-07 08:11] VITALS: BP 148/55; PULSE 60; RESP 18; TEMP 36.6; O2SAT 98
[2021-03-07] MEDS: sodium chloride 0.9% (100 ml) 100 ML 10 ML (08:15)
[2021-03-07 08:30] VITALS: BP 130/52; PULSE 55; RESP 16; TEMP 36.6; O2SAT 99
[2021-03-07 08:45] VITALS: BP 127/48; PULSE 58; RESP 18; TEMP 36.6; O2SAT 99
[2021-03-07 09:45] VITALS: BP 124/50; PULSE 58; RESP 16; TEMP 36.3; O2SAT 100
[2021-03-07 10:40] VITALS: BP 147/57; PULSE 64; RESP 18; O2SAT 98
== END 2021-03-07 06:35 | disposition home or self-care (01) ==
LOC: GILAB 06:39
PROVIDERS: PCP Internal Medicine; Visit Provider Internal Medicine
DX: D64.9 Anemia, unspecified (principal); E11.65 Type 2 diabetes mellitus with hyperglycemia; M05.69 Rheumatoid arthritis of multiple sites with involvement of other organs and systems
CPT/HCPCS: 36415; 36430; 86850; 86900; 86920; P9016

== ENCOUNTER 2021-03-11 09:44 | Outpatient (CLI) | payer MEDICARE, OTHER, SELFPAY ==
[2021-03-11 10:02] VITALS: BP 152/70; PULSE 60; RESP 18; TEMP 36.5; O2SAT 99
[2021-03-11] MEDS: acetaminophen 325 mg Tablet 650 MG PO (10:30)
[2021-03-11] MEDS: diphenhydrAMINE 50 mg/mL SDV 1mL 25 MG IV (10:32)
[2021-03-11] MEDS: sodium chloride 0.9% 250 ML 75 ML IV (10:32)
[2021-03-11 11:22] VITALS: BP 133/57; PULSE 56; RESP 18; TEMP 36.6; O2SAT 96
[2021-03-11 12:26] VITALS: BP 148/71; PULSE 60; RESP 18; TEMP 36.2; O2SAT 99
[2021-03-11 13:06] VITALS: BP 158/68; PULSE 63; RESP 18; TEMP 36.5; O2SAT 99
== END 2021-03-11 09:45 | disposition home or self-care (01) ==
PROVIDERS: PCP Internal Medicine; Referring Provider Internal Medicine Rheumatology; Visit Provider Internal Medicine Rheumatology
DX: M06.041 Rheumatoid arthritis without rheumatoid factor, right hand (principal); M06.042 Rheumatoid arthritis without rheumatoid factor, left hand
CPT/HCPCS: 96365; 96366; 96375; J1200; J2920; J7050; Q5104

== ENCOUNTER 2021-04-22 09:56 | Outpatient (CLI) | payer MEDICARE, OTHER, SELFPAY ==
[2021-04-22 10:27] VITALS: BP 147/73; PULSE 66; RESP 18; TEMP 36.8; O2SAT 98
[2021-04-22 10:33] LABS: Basophils # 0.1 10^3/uL (0.0-0.1); Basophils % 0.5 %; Eosinophils # 0.3 10^3/uL (0.0-0.8); Eosinophils % 1.4 %; Hematocrit 29.2 % (37.0-47.0); Hemoglobin 8.7 g/dL (11.5-15.3); Lymphocytes # 2.1 10^3/uL (0.8-4.8); Lymphocytes % 9.5 %; Mean Corpuscular HGB Conc 29.8 g/dL (30.0-36.0); Mean Corpuscular Hemoglobin 24.8 pg (28.0-34.0); Mean Corpuscular Volume 83.2 fl (81-99); Mean Platelet Volume 9.9 fL (7.4-10.4); Monocytes # 1.5 10^3/uL (0.2-0.9); Monocytes % 6.7 %; Neutrophils # 17.88 10^3/uL (1.8-7.7); Neutrophils % 80.6 %; Nucleated Red Blood Cells % 0 %; Platelet Count 658 10^3/cmm (130-400); Red Blood Count 3.51 10^6/uL (4.1-5.3); Red Cell Distribution Width 17.9 % (12.1-15.1); White Blood Count 22.2 10^3/uL (4.0-10.0)
[2021-04-22] MEDS: sodium chloride 0.9% 250 ML 75 ML IV (10:39)
[2021-04-22] MEDS: acetaminophen 325 mg Tablet 650 MG PO (10:40)
[2021-04-22] MEDS: diphenhydrAMINE 50 mg/mL SDV 1mL 25 MG IV (10:41)
[2021-04-22 11:26] VITALS: BP 143/67; PULSE 61; RESP 18; TEMP 36.6; O2SAT 97
[2021-04-22 11:43] LABS: Alanine Aminotransferase 30 U/L (0-33); Albumin Level 3.1 g/dL (3.5-5.2); Alkaline Phosphatase 179 IU/L (35-105); Aspartate Amino Transferase 35 U/L (0-32); Globulin 5.3 g/dL (1.3-4.6); Total Bilirubin 0.4 mg/dL (0.15-1.2); Total Protein 8.4 g/dL (6.6-8.7)
[2021-04-22 12:17] VITALS: BP 140/70; PULSE 67; RESP 18; TEMP 36.7; O2SAT 96
[2021-04-22 13:02] VITALS: BP 149/70; PULSE 68; RESP 18; TEMP 36.7; O2SAT 99
[2021-04-28 12:16] LABS: Erythrocyte Sedimentation Rate > 130 mm/hr (0-15)
== END 2021-04-22 09:57 | disposition home or self-care (01) ==
LOC: ONCMED 10:01
PROVIDERS: PCP Internal Medicine; Referring Provider Internal Medicine Rheumatology; Visit Provider Internal Medicine Rheumatology
DX: M06.041 Rheumatoid arthritis without rheumatoid factor, right hand (principal); M06.042 Rheumatoid arthritis without rheumatoid factor, left hand
CPT/HCPCS: 80076; 82565; 85025; 85651; 96365; 96366; 96375; J1200; J2920; J7050; Q5104

== ENCOUNTER → 2021-05-14 10:57 | Outpatient (BNVA) | payer MEDICARE, OTHER, SELFPAY | PROVIDERS: PCP Internal Medicine; Visit Provider Internal Medicine Rheumatology | DX: M06.041 Rheumatoid arthritis without rheumatoid factor, right hand (principal); M06.042 Rheumatoid arthritis without rheumatoid factor, left hand; E11.610 Type 2 diabetes mellitus with diabetic neuropathic arthropathy; E11.22 Type 2 diabetes mellitus with diabetic chronic kidney disease; N18.9 Chronic kidney disease, unspecified; Z79.4 Long term (current) use of insulin; D72.829 Elevated white blood cell count, unspecified; M15.4 Erosive (osteo)arthritis; Z79.899 Other long term (current) drug therapy; Z96.662 Presence of left artificial ankle joint; Z96.651 Presence of right artificial knee joint; Z98.890 Other specified postprocedural states; Z71.89 Other specified counseling | CPT/HCPCS: 99214 ==

== ENCOUNTER 2021-05-29 09:35 | Outpatient (CLI) | payer MEDICARE, OTHER, SELFPAY ==
[2021-05-29 10:16] VITALS: BP 123/70; PULSE 72; RESP 18; TEMP 36.7; O2SAT 99
[2021-05-29 10:21] LABS: Basophils # 0.1 10^3/uL (0.0-0.1); Basophils % 0.4 %; Eosinophils # 0.5 10^3/uL (0.0-0.8); Eosinophils % 1.9 %; Hematocrit 31.5 % (37.0-47.0); Hemoglobin 9.2 g/dL (11.5-15.3); Lymphocytes # 2.5 10^3/uL (0.8-4.8); Lymphocytes % 10.1 %; Mean Corpuscular HGB Conc 29.2 g/dL (30.0-36.0); Mean Corpuscular Volume 85.6 fl (81-99); Mean Platelet Volume 9.9 fL (7.4-10.4); Monocytes # 1.4 10^3/uL (0.2-0.9); Monocytes % 5.5 %; Neutrophils # 19.87 10^3/uL (1.8-7.7); Neutrophils % 79.9 %; Nucleated Red Blood Cells % 0 %; Platelet Count 652 10^3/cmm (130-400); Red Blood Count 3.68 10^6/uL (4.1-5.3); Red Cell Distribution Width 17.9 % (12.1-15.1); White Blood Count 24.9 10^3/uL (4.0-10.0)
[2021-05-29] MEDS: sodium chloride 0.9% 250 ML 50 ML IV (10:30)
[2021-05-29] MEDS: diphenhydrAMINE 50 mg/mL SDV 1mL 25 MG IVP ×2 (10:33→12:01)
[2021-05-29] MEDS: acetaminophen 325 mg Tablet 650 MG PO (10:33)
[2021-05-29 10:35] LABS: Alanine Aminotransferase 11 U/L (0-33); Albumin Level 3.3 g/dL (3.5-5.2); Alkaline Phosphatase 138 IU/L (35-105); Aspartate Amino Transferase 13 U/L (0-32); Globulin 5.4 g/dL (1.3-4.6); Total Bilirubin 0.3 mg/dL (0.15-1.2); Total Protein 8.7 g/dL (6.6-8.7)
[2021-05-29 10:40] LABS: Erythrocyte Sedimentation Rate 61 mm/hr (0-15)
[2021-05-29 11:21] VITALS: BP 129/73; PULSE 73; RESP 18; TEMP 36.8; O2SAT 96
[2021-05-29 12:03] VITALS: BP 125/69; PULSE 85; RESP 18; TEMP 36.8; O2SAT 95
[2021-05-29 12:47] VITALS: BP 123/66; PULSE 75; RESP 18; TEMP 36.8; O2SAT 98
[2021-05-29 13:33] VITALS: BP 134/64; PULSE 78; RESP 18; TEMP 36.9; O2SAT 98
== END 2021-05-29 09:36 | disposition home or self-care (01) ==
LOC: ONCMED 09:41
PROVIDERS: PCP Internal Medicine; Referring Provider Internal Medicine Rheumatology; Visit Provider Internal Medicine Medical Oncology
DX: M06.041 Rheumatoid arthritis without rheumatoid factor, right hand (principal); M06.042 Rheumatoid arthritis without rheumatoid factor, left hand; Z79.899 Other long term (current) drug therapy
CPT/HCPCS: 80076; 82565; 85025; 85651; 96365; 96366; 96375; 96376; J1200; J2920; J7050; Q5104

== ENCOUNTER → 2021-06-13 11:03 | Day surgery (SDC) | payer MEDICARE, OTHER, SELFPAY ==
[2021-06-13] MEDS: ferric carboxy (IVPB) 750 MG in sodium chloride 0.9% (100 ml) 100 ML 345 MG IV (11:33)
[2021-06-13 11:38] VITALS: BP 122/45; PULSE 68; RESP 18; TEMP 36.6; O2SAT 100
== END ==
PROVIDERS: PCP Internal Medicine; Visit Provider Internal Medicine
DX: D50.9 Iron deficiency anemia, unspecified (principal)
CPT/HCPCS: 96365; J1439

== ENCOUNTER → 2021-06-20 10:54 | Day surgery (SDC) | payer MEDICARE, OTHER, SELFPAY ==
[2021-06-20 11:14] VITALS: BP 142/66; PULSE 70; RESP 18; TEMP 36.3; O2SAT 99
[2021-06-20] MEDS: ferric carboxy (IVPB) 750 MG in sodium chloride 0.9% (100 ml) 100 ML 345 MG IV (11:15)
== END ==
PROVIDERS: PCP Internal Medicine; Visit Provider Internal Medicine
DX: D50.9 Iron deficiency anemia, unspecified (principal)
CPT/HCPCS: 96365; J1439

== ENCOUNTER 2021-06-26 11:27 | Outpatient (CLI) | payer MEDICARE, OTHER, SELFPAY ==
[2021-06-26 12:04] VITALS: BP 144/68; PULSE 68; RESP 18; TEMP 36.8; O2SAT 97
[2021-06-26] MEDS: sodium chloride 0.9% 250 ML 50 ML IV (12:16)
[2021-06-26] MEDS: acetaminophen 325 mg Tablet 650 MG PO (12:17)
[2021-06-26] MEDS: diphenhydrAMINE 50 mg/mL SDV 1mL 25 MG IV (12:18)
[2021-06-26 13:27] VITALS: BP 149/66; PULSE 66; RESP 18; TEMP 36.6; O2SAT 97
[2021-06-26 14:18] VITALS: BP 164/65; PULSE 68; RESP 18; TEMP 36.8; O2SAT 95
[2021-06-26 14:44] VITALS: BP 168/77; PULSE 84; RESP 18; TEMP 36.9; O2SAT 95
== END 2021-06-26 11:28 | disposition home or self-care (01) ==
PROVIDERS: PCP Internal Medicine; Referring Provider Internal Medicine Rheumatology; Visit Provider Internal Medicine Rheumatology
DX: M06.041 Rheumatoid arthritis without rheumatoid factor, right hand (principal); M06.042 Rheumatoid arthritis without rheumatoid factor, left hand
CPT/HCPCS: 96365; 96366; 96375; J1200; J2920; J7050; Q5104

== ENCOUNTER 2021-07-23 07:00 | Outpatient (CLI) | payer MEDICARE, OTHER, SELFPAY ==
[2021-07-23] MEDS: acetaminophen 325 mg Tablet 650 MG PO (07:33)
[2021-07-23 07:35] LABS: Basophils # 0.1 10^3/uL (0.0-0.1); Basophils % 0.3 %; Eosinophils # 0.4 10^3/uL (0.0-0.8); Hematocrit 37.1 % (37.0-47.0); Lymphocytes # 1.6 10^3/uL (0.8-4.8); Lymphocytes % 9.1 %; Mean Corpuscular HGB Conc 29.6 g/dL (30.0-36.0); Mean Corpuscular Hemoglobin 27.4 pg (28.0-34.0); Mean Corpuscular Volume 92.5 fl (81-99); Mean Platelet Volume 10.1 fL (7.4-10.4); Monocytes % 5.8 %; Neutrophils # 14.09 10^3/uL (1.8-7.7); Neutrophils % 81.5 %; Nucleated Red Blood Cells % 0 %; Platelet Count 575 10^3/cmm (130-400); Red Blood Count 4.01 10^6/uL (4.1-5.3); Red Cell Distribution Width 18.7 % (12.1-15.1); White Blood Count 17.3 10^3/uL (4.0-10.0)
[2021-07-23] MEDS: diphenhydrAMINE 50 mg/mL SDV 1mL 25 MG IV (07:35)
[2021-07-23] MEDS: sodium chloride 0.9% 250 ML 50 ML IV (07:35)
[2021-07-23 07:42] VITALS: BP 137/61; PULSE 69; RESP 18; TEMP 36.3; O2SAT 100
[2021-07-23 07:51] LABS: Erythrocyte Sedimentation Rate 83 mm/hr (0-15)
[2021-07-23 08:06] VITALS: BP 131/52; PULSE 68; RESP 18; TEMP 36.5; O2SAT 98
[2021-07-23 08:07] LABS: Alanine Aminotransferase 11 U/L (0-33); Albumin Level 3.7 g/dL (3.5-5.2); Alkaline Phosphatase 176 IU/L (35-105); Aspartate Amino Transferase 20 U/L (0-32); Globulin 5.4 g/dL (1.3-4.6); Total Bilirubin 0.3 mg/dL (0.15-1.2); Total Protein 9.1 g/dL (6.6-8.7)
[2021-07-23 08:37] VITALS: BP 127/54; PULSE 67; RESP 18; TEMP 36.7; O2SAT 95
[2021-07-23 09:22] VITALS: BP 129/60; PULSE 56; RESP 18; TEMP 36.8; O2SAT 96
[2021-07-23 10:04] VITALS: BP 140/61; PULSE 62; RESP 18; TEMP 36.8; O2SAT 98
== END 2021-07-23 07:01 | disposition home or self-care (01) ==
PROVIDERS: PCP Internal Medicine; Referring Provider Internal Medicine Rheumatology; Visit Provider Internal Medicine Rheumatology
DX: M06.041 Rheumatoid arthritis without rheumatoid factor, right hand (principal); M06.042 Rheumatoid arthritis without rheumatoid factor, left hand; Z79.899 Other long term (current) drug therapy
CPT/HCPCS: 80076; 82565; 85025; 85651; 96365; 96366; 96375; J1200; J2920; J7050; Q5104

== ENCOUNTER 2021-08-21 08:55 | Outpatient (CLI) | payer MEDICARE, OTHER, SELFPAY ==
[2021-08-21] VITALS (7 sets, daily range): BP systolic 135–160; BP diastolic 65–73; PULSE 58–78; RESP 18; TEMP 36.1–36.5; O2SAT 91–99
[2021-08-21] MEDS: acetaminophen 325 mg Tablet 650 MG PO (09:39)
[2021-08-21] MEDS: sodium chloride 0.9% 250 ML 50 ML IV (09:41)
[2021-08-21] MEDS: diphenhydrAMINE 50 mg/mL SDV 1mL 25 MG IV (09:42)
== END 2021-08-21 08:56 | disposition home or self-care (01) ==
PROVIDERS: PCP Internal Medicine; Referring Provider Internal Medicine Rheumatology; Visit Provider Internal Medicine Rheumatology
DX: M06.041 Rheumatoid arthritis without rheumatoid factor, right hand (principal); M06.042 Rheumatoid arthritis without rheumatoid factor, left hand
CPT/HCPCS: 96365; 96366; 96375; J1200; J2920; J7050; Q5104

== ENCOUNTER → 2021-09-10 08:56 | Outpatient (BNVA) | payer MEDICARE, OTHER, SELFPAY | PROVIDERS: PCP Internal Medicine; Visit Provider Internal Medicine Rheumatology | DX: M06.041 Rheumatoid arthritis without rheumatoid factor, right hand (principal); M06.042 Rheumatoid arthritis without rheumatoid factor, left hand; M15.4 Erosive (osteo)arthritis; Z79.899 Other long term (current) drug therapy; E11.610 Type 2 diabetes mellitus with diabetic neuropathic arthropathy; E11.22 Type 2 diabetes mellitus with diabetic chronic kidney disease; N18.9 Chronic kidney disease, unspecified; Z79.4 Long term (current) use of insulin; D72.829 Elevated white blood cell count, unspecified; D64.9 Anemia, unspecified; Z96.662 Presence of left artificial ankle joint; Z96.651 Presence of right artificial knee joint; Z71.89 Other specified counseling | CPT/HCPCS: 99214 ==

== ENCOUNTER → 2021-09-12 10:35 | Outpatient (BNVA) | payer MEDICARE, OTHER, SELFPAY | PROVIDERS: PCP Internal Medicine; Visit Provider Podiatrist Foot & Ankle Surgery | DX: L60.3 Nail dystrophy (principal); E11.610 Type 2 diabetes mellitus with diabetic neuropathic arthropathy; E11.42 Type 2 diabetes mellitus with diabetic polyneuropathy | CPT/HCPCS: 73630; 99203; 99204 ==

== ENCOUNTER 2021-09-18 10:56 | Outpatient (CLI) | payer MEDICARE, OTHER, SELFPAY ==
[2021-09-18 11:18] VITALS: BP 169/62; PULSE 62; RESP 18; TEMP 36.5; O2SAT 98
[2021-09-18] MEDS: acetaminophen 325 mg Tablet 650 MG PO (11:40)
[2021-09-18 11:42] LABS: Basophils # 0.1 10^3/uL (0.0-0.1); Basophils % 0.4 %; Eosinophils # 0.5 10^3/uL (0.0-0.8); Eosinophils % 2.2 %; Hematocrit 34.2 % (37.0-47.0); Hemoglobin 10.2 g/dL (11.5-15.3); Lymphocytes # 2.5 10^3/uL (0.8-4.8); Lymphocytes % 11.2 %; Mean Corpuscular HGB Conc 29.8 g/dL (30.0-36.0); Mean Corpuscular Hemoglobin 28.3 pg (28.0-34.0); Mean Corpuscular Volume 94.7 fl (81-99); Mean Platelet Volume 10.4 fL (7.4-10.4); Monocytes # 0.9 10^3/uL (0.2-0.9); Monocytes % 4.2 %; Neutrophils # 17.84 10^3/uL (1.8-7.7); Neutrophils % 80.6 %; Nucleated Red Blood Cells % 0 %; Platelet Count 550 10^3/cmm (130-400); Red Blood Count 3.61 10^6/uL (4.1-5.3); Red Cell Distribution Width 16.3 % (12.1-15.1); White Blood Count 22.1 10^3/uL (4.0-10.0)
[2021-09-18] MEDS: sodium chloride 0.9% 250 ML 50 ML IV (11:42)
[2021-09-18] MEDS: diphenhydrAMINE 50 mg/mL SDV 1mL 25 MG IV (11:43)
[2021-09-18 11:53] LABS: Alanine Aminotransferase 12 U/L (0-33); Albumin Level 3.3 g/dL (3.5-5.2); Alkaline Phosphatase 122 IU/L (35-105); Aspartate Amino Transferase 14 U/L (0-32); Globulin 5.1 g/dL (1.3-4.6); Total Bilirubin 0.2 mg/dL (0.15-1.2); Total Protein 8.4 g/dL (6.6-8.7)
[2021-09-18 11:55] LABS: Erythrocyte Sedimentation Rate 58 mm/hr (0-15)
[2021-09-18 12:07] VITALS: BP 149/64; PULSE 60; RESP 16; TEMP 36.7; O2SAT 97
[2021-09-18 12:33] VITALS: BP 136/62; PULSE 57; RESP 16; TEMP 36.8; O2SAT 95
[2021-09-18 12:49] VITALS: BP 156/66; PULSE 67; RESP 18; TEMP 36.5; O2SAT 99
[2021-09-18 13:20] VITALS: BP 146/65; PULSE 66; RESP 18; TEMP 36.8; O2SAT 95
[2021-09-18 14:01] VITALS: BP 164/66; PULSE 67; RESP 18; TEMP 36.9; O2SAT 96
== END 2021-09-18 10:57 | disposition home or self-care (01) ==
LOC: ONCMED 10:59
PROVIDERS: PCP Internal Medicine; Referring Provider Internal Medicine Rheumatology; Visit Provider Internal Medicine Rheumatology
DX: M06.041 Rheumatoid arthritis without rheumatoid factor, right hand (principal); M06.042 Rheumatoid arthritis without rheumatoid factor, left hand; Z79.899 Other long term (current) drug therapy
CPT/HCPCS: 80076; 82565; 85025; 85651; 96365; 96366; 96375; J1200; J2920; J7050; Q5104

== ENCOUNTER 2021-10-14 11:53 | Outpatient (CLI) | payer MEDICARE, OTHER, SELFPAY ==
--- NOTE | 2021-10-14 12:10 | USCV_ITS ---
Adina Gracia Age: 75 Gender: F : 1945 Exam Date: 10/14/2021 12:33 Ordering Phys: Blossom Barney MD Technologist: MICHAEL Exam Location: [facility] [place] Indication: Murmur BP: 150 / 57 HR: 58 Rhythm: Sinus Technical Quality: Technically difficult study MEASUREMENTS (Male / Female) Normal Values 2D ECHO LV Diastolic Diameter PLAX 4.6 cm 4.2 - 5.9 / 3.9 - 5.3 cm LV Systolic Diameter PLAX 3.2 cm IVS Diastolic Thickness 1.3 cm 0.6 - 1.0 / 0.6 - 0.9 cm IVS Systolic Thickness 1.8 cm LVPW Diastolic Thickness 1.3 cm 0.6 - 1.0 / 0.6 - 0.9 cm LVPW Systolic Thickness 1.8 cm LVOT Diameter 2.0 cm LV Ejection Fraction 2D Teich 58.7 % LV Ejection Fraction MOD 2C 58.9 % LV Ejection Fraction 2C AL 58.6 % LA Diameter 3.1 cm Aorta at Sinotubular Diameter 2.5 cm IVC Diameter 1.8 cm M-MODE Aortic Annulus Diameter 2.8 cm LA Ao Ratio MM 1.2 MV E Point Septal Separation 0.4 cm DOPPLER AV Peak Velocity 141.0 cm/s LVOT Peak Velocity 87.0 cm/s AV Area Cont Eq vti 1.8 cm squared AV Area Cont Eq pk 2.0 cm squared MV Area PHT 3.0 cm squared Mitral E to A Ratio 1.2 MV E' Velocity 59.0 cm/s Mitral E to MV E' Ratio 14.7 Mitral E to LV E' Lateral Ratio 13.3 Mitral E to LV E' Septal Ratio 16.4 TR Peak Velocity 273.0 cm/s TR Peak Gradient 29.8 mmHg TV Peak E Velocity 64.0 cm/s Right Atrial Pressure 3.0 mmHg Pulmonary Artery Systolic Pressu 32.8 mmHg PV Peak Velocity 100.0 cm/s RV Acceleration Time 0.1 s RV Ejection Time 0.2 s RV AcT/ET 0.4 FINDINGS Left Ventricle Normal left ventricular size, systolic function and mildly increased wall thickness. Mild concentric left ventricular hypertrophy. Left ventricular ejection fraction is estimated at 70 %. Possible mild hypokinesis of basal inferolateral wall. Grade II diastolic dysfunction, moderately elevated filling pressures. Right Ventricle Normal right ventricular size and systolic function. RVSP could not be calculated due to incomplete tricuspid regurgitation velocity profile. Right Atrium Normal right atrial size. Left Atrium Normal left atrial size. Mitral Valve Mild mitral annular calcification. Structurally normal mitral valve. No mitral valve stenosis. Trace mitral valve regurgitation. Aortic Valve Structurally normal trileaflet aortic valve. No aortic valve stenosis. No aortic valve regurgitation. Tricuspid Valve Structurally normal tricuspid valve. No tricuspid valve stenosis. Trace to mild tricuspid valve regurgitation. Pulmonic Valve Structurally normal pulmonic valve. No pulmonary valve stenosis. Trace pulmonary valve regurgitation. Pericardium No pericardial effusion. Aorta Normal size aortic root and proximal ascending aorta. IVC Normal IVC dimension with >50% respiratory change of the inferior vena cava. CONCLUSIONS 1. Normal left ventricular size and systolic function. Mild concentric left ventricular hypertrophy. Left ventricular ejection fraction is estimated at 70 %. Possible mild hypokinesis of basal inferolateral wall. Grade II diastolic dysfunction, moderately elevated filling pressures. 2. Trace to mild tricuspid valve regurgitation. 3. No significant change when compared to study dated 04/02/20. Scarlett Stinson MD (Electronically Signed) Final Date: 15 Oct 2021 20:09 S
== END 2021-10-14 11:54 | disposition home or self-care (01) ==
LOC: RAD 11:59
PROVIDERS: PCP Internal Medicine; Visit Provider Internal Medicine
DX: R01.1 Cardiac murmur, unspecified (principal)
CPT/HCPCS: 93306

== ENCOUNTER → 2021-10-15 10:39 | Outpatient (BNVA) | payer MEDICARE, OTHER, SELFPAY | PROVIDERS: PCP Internal Medicine; Visit Provider Podiatrist Foot & Ankle Surgery | DX: E11.610 Type 2 diabetes mellitus with diabetic neuropathic arthropathy (principal); E11.42 Type 2 diabetes mellitus with diabetic polyneuropathy; L60.3 Nail dystrophy; M79.671 Pain in right foot | CPT/HCPCS: 73630; 99213; 99214 ==

== ENCOUNTER 2021-10-16 09:58 | Outpatient (CLI) | payer MEDICARE, OTHER, SELFPAY ==
[2021-10-16 10:14] VITALS: BP 135/65; PULSE 73; RESP 18; TEMP 36.2; O2SAT 99
[2021-10-16] MEDS: sodium chloride 0.9% 250 ML 50 ML IV (10:37)
[2021-10-16] MEDS: acetaminophen 325 mg Tablet 650 MG PO (10:38)
[2021-10-16] MEDS: diphenhydrAMINE 50 mg/mL SDV 1mL 25 MG IVP (10:39)
[2021-10-16 11:00] VITALS: BP 136/71; PULSE 56; RESP 16; TEMP 36.4; O2SAT 94
[2021-10-16 11:32] VITALS: BP 146/70; PULSE 53; RESP 18; TEMP 36.4; O2SAT 93
[2021-10-16 12:01] VITALS: BP 145/72; PULSE 53; RESP 18; TEMP 36.4; O2SAT 92
[2021-10-16 12:28] VITALS: BP 145/73; PULSE 54; RESP 16; TEMP 36.3; O2SAT 92
[2021-10-16 13:10] VITALS: BP 146/63; PULSE 63; RESP 18; TEMP 36.2; O2SAT 94
== END 2021-10-16 09:59 | disposition home or self-care (01) ==
PROVIDERS: PCP Internal Medicine; Referring Provider Internal Medicine Rheumatology; Visit Provider Internal Medicine Rheumatology
DX: M06.041 Rheumatoid arthritis without rheumatoid factor, right hand (principal); M06.042 Rheumatoid arthritis without rheumatoid factor, left hand
CPT/HCPCS: 96365; 96366; 96375; 96413; 96415; J1200; J2920; J7050; Q5104

== ENCOUNTER 2021-11-05 12:42 | Outpatient (CLI) | payer MEDICARE, OTHER, SELFPAY ==
--- NOTE | 2021-11-05 13:00 | MM_ITS ---
WS: [id number] BILATERAL 3D TOMOSYNTHESIS DIGITAL SCREENING MAMMOGRAPHY WITH CAD CLINICAL INFORMATION: SCREENING HISTORY: Screening mammogram. No current complaints. COMPARISON: July 27, 2019 TECHNIQUE: Bilateral CC and MLO views. FINDINGS: Scattered fibroglandular densities bilaterally. Punctate and lucent centered calcifications. 6 mm den sity subareolar RIGHT breast stable since 2018. No suspicious focal mass, asymmetry, calcifications, or architectural distortion. No evidence of malignancy. MM/[place] [id number] IMPRESSION: BI-RADS: 2-Benign FOLLOW UP: 1 Year Follow-up Recommend return to annual screening mammography.
== END 2021-11-05 12:43 | disposition home or self-care (01) ==
LOC: RAD 12:44
PROVIDERS: PCP Internal Medicine; Visit Provider Internal Medicine
DX: Z12.31 Encounter for screening mammogram for malignant neoplasm of breast (principal)
CPT/HCPCS: 77063; 77067

== ENCOUNTER 2021-11-13 09:31 | Outpatient (CLI) | payer MEDICARE, OTHER, SELFPAY ==
[2021-11-13 10:17] VITALS: BP 160/61; PULSE 76; RESP 18; TEMP 36.7; O2SAT 93
[2021-11-13] MEDS: acetaminophen 325 mg Tablet 650 MG PO (10:53)
[2021-11-13] MEDS: sodium chloride 0.9% 250 ML 50 ML IV (10:56)
[2021-11-13] MEDS: diphenhydrAMINE 50 mg/mL SDV 1mL 25 MG IVP (10:59)
[2021-11-13 11:03] LABS: Basophils # 0.1 10^3/uL (0.0-0.1); Basophils % 0.5 %; Eosinophils # 0.4 10^3/uL (0.0-0.8); Eosinophils % 2.2 %; Hematocrit 30.5 % (37.0-47.0); Hemoglobin 9.5 g/dL (11.5-15.3); Lymphocytes # 2.1 10^3/uL (0.8-4.8); Lymphocytes % 11.7 %; Mean Corpuscular HGB Conc 31.1 g/dL (30.0-36.0); Mean Platelet Volume 10.8 fL (7.4-10.4); Monocytes # 1.6 10^3/uL (0.2-0.9); Monocytes % 8.9 %; Neutrophils # 13.36 10^3/uL (1.8-7.7); Nucleated Red Blood Cells % 0 %; Platelet Count 467 10^3/cmm (130-400); Red Blood Count 3.28 10^6/uL (4.1-5.3); Red Cell Distribution Width 15.2 % (12.1-15.1); White Blood Count 17.8 10^3/uL (4.0-10.0)
[2021-11-13 11:25] LABS: Alanine Aminotransferase 12 U/L (0-33); Albumin Level 3.1 g/dL (3.5-5.2); Alkaline Phosphatase 124 IU/L (35-105); Aspartate Amino Transferase 13 U/L (0-32); Globulin 4.7 g/dL (1.3-4.6); Total Bilirubin 0.2 mg/dL (0.15-1.2); Total Protein 7.8 g/dL (6.6-8.7)
[2021-11-13 11:32] VITALS: BP 156/64; PULSE 69; RESP 18; TEMP 36.5; O2SAT 92
[2021-11-13 11:48] LABS: Erythrocyte Sedimentation Rate 53 mm/hr (0-15)
[2021-11-13 12:14] VITALS: BP 168/68; PULSE 57; RESP 18; TEMP 36.4; O2SAT 97
[2021-11-13 13:33] VITALS: BP 176/66; PULSE 81; RESP 18; TEMP 36.7; O2SAT 95
== END 2021-11-13 09:32 | disposition home or self-care (01) ==
PROVIDERS: PCP Internal Medicine; Referring Provider Internal Medicine Rheumatology; Visit Provider Internal Medicine Rheumatology
DX: M06.041 Rheumatoid arthritis without rheumatoid factor, right hand (principal); M06.042 Rheumatoid arthritis without rheumatoid factor, left hand; Z79.899 Other long term (current) drug therapy
CPT/HCPCS: 80076; 82565; 85025; 85651; 96365; 96366; 96375; J1200; J2920; J7050; Q5104

== ENCOUNTER → 2021-11-19 10:47 | Outpatient (BNVA) | payer MEDICARE, OTHER, SELFPAY | PROVIDERS: PCP Internal Medicine; Visit Provider Podiatrist Foot & Ankle Surgery | DX: E11.42 Type 2 diabetes mellitus with diabetic polyneuropathy (principal); L60.3 Nail dystrophy; Z79.4 Long term (current) use of insulin; E11.610 Type 2 diabetes mellitus with diabetic neuropathic arthropathy; M06.9 Rheumatoid arthritis, unspecified | CPT/HCPCS: 73630; 99214 ==

== ENCOUNTER 2021-12-04 10:29 | Outpatient (CLI) | payer MEDICARE, OTHER, SELFPAY ==
--- NOTE | 2021-12-04 10:48 | XR_ITS ---
WS: [id number] Chest 2 views, 12/04/2021 Clinical Data: COUGH Comparison: Portable chest, 03/31/2020. Findings: No nodules, masses or effusions are seen. The heart is normal. The pulmonary vascularity is not increased. No pneumonia or pneumothorax is seen. The aortic arch shows mild tortuosity. There is a total right shoulder prosthesis and an anterior cervical disc fusion. XR/XR chest 2V* [id number] Impression: Atherosclerosis.
== END 2021-12-04 10:30 | disposition home or self-care (01) ==
PROVIDERS: PCP Internal Medicine; Visit Provider Internal Medicine
DX: R05.9 Cough, unspecified (principal); I70.0 Atherosclerosis of aorta
CPT/HCPCS: 71046

== ENCOUNTER 2021-12-11 10:29 | Outpatient (CLI) | payer MEDICARE, OTHER, SELFPAY ==
[2021-12-11 10:54] VITALS: BP 159/67; PULSE 65; RESP 18; TEMP 36.7; O2SAT 99
[2021-12-11] MEDS: acetaminophen 325 mg Tablet 650 MG PO (11:27)
[2021-12-11] MEDS: sodium chloride 0.9% 250 ML 50 ML IV (11:27)
[2021-12-11] MEDS: diphenhydrAMINE 50 mg/mL SDV 1mL 25 MG IVP (11:29)
[2021-12-11 13:57] VITALS: BP 163/64; PULSE 71; RESP 18; TEMP 36.5; O2SAT 96
== END 2021-12-11 10:30 | disposition home or self-care (01) ==
PROVIDERS: PCP Internal Medicine; Referring Provider Internal Medicine Rheumatology; Visit Provider Internal Medicine Rheumatology
DX: M06.041 Rheumatoid arthritis without rheumatoid factor, right hand (principal); M06.042 Rheumatoid arthritis without rheumatoid factor, left hand
CPT/HCPCS: 96365; 96366; 96375; J1200; J2920; J7050; Q5104

== ENCOUNTER → 2021-12-24 10:53 | Outpatient (BNVA) | payer MEDICARE, OTHER, SELFPAY | PROVIDERS: PCP Internal Medicine; Visit Provider Podiatrist Foot & Ankle Surgery | DX: E11.610 Type 2 diabetes mellitus with diabetic neuropathic arthropathy (principal); M79.671 Pain in right foot; E11.42 Type 2 diabetes mellitus with diabetic polyneuropathy; L60.3 Nail dystrophy; Z79.4 Long term (current) use of insulin | CPT/HCPCS: 73630; 99214 ==

== ENCOUNTER → 2022-01-07 10:58 | Outpatient (BNVA) | payer MEDICARE, OTHER, SELFPAY | PROVIDERS: PCP Internal Medicine; Visit Provider Internal Medicine Rheumatology | DX: M06.041 Rheumatoid arthritis without rheumatoid factor, right hand (principal); M06.042 Rheumatoid arthritis without rheumatoid factor, left hand; E11.610 Type 2 diabetes mellitus with diabetic neuropathic arthropathy; M10.00 Idiopathic gout, unspecified site; Z79.899 Other long term (current) drug therapy; Z71.89 Other specified counseling; E11.22 Type 2 diabetes mellitus with diabetic chronic kidney disease; N18.9 Chronic kidney disease, unspecified; Z79.4 Long term (current) use of insulin; M15.9 Polyosteoarthritis, unspecified; Z96.662 Presence of left artificial ankle joint; Z96.651 Presence of right artificial knee joint | CPT/HCPCS: 99214 ==

== ENCOUNTER 2022-01-13 08:52 | Outpatient (CLI) | payer MEDICARE, OTHER, SELFPAY ==
[2022-01-13 09:27] VITALS: BP 130/74; PULSE 60; RESP 18; TEMP 36.7; O2SAT 96
[2022-01-13 09:37] LABS: Basophils # 0.1 10^3/uL (0.0-0.1); Basophils % 0.4 %; Eosinophils # 0.4 10^3/uL (0.0-0.8); Eosinophils % 1.7 %; Hematocrit 32.1 % (37.0-47.0); Hemoglobin 9.7 g/dL (11.5-15.3); Lymphocytes # 3.3 10^3/uL (0.8-4.8); Lymphocytes % 15.1 %; Mean Corpuscular HGB Conc 30.2 g/dL (30.0-36.0); Mean Corpuscular Hemoglobin 28.7 pg (28.0-34.0); Mean Platelet Volume 10.5 fL (7.4-10.4); Monocytes # 1.6 10^3/uL (0.2-0.9); Monocytes % 7.4 %; Neutrophils # 16.16 10^3/uL (1.8-7.7); Neutrophils % 73.4 %; Nucleated Red Blood Cells % 0 %; Platelet Count 492 10^3/cmm (130-400); Red Blood Count 3.38 10^6/uL (4.1-5.3); Red Cell Distribution Width 14.9 % (12.1-15.1)
[2022-01-13 09:59] LABS: Erythrocyte Sedimentation Rate 63 mm/hr (0-15)
[2022-01-13] MEDS: sodium chloride 0.9% 250 ML 50 ML IV (10:03)
[2022-01-13] MEDS: acetaminophen 325 mg Tablet 650 MG PO (10:04)
[2022-01-13] MEDS: diphenhydrAMINE 50 mg/mL SDV 1mL 25 MG IVP (10:05)
[2022-01-13 10:27] LABS: Alanine Aminotransferase 12 U/L (0-33); Alkaline Phosphatase 111 U/L (35-105); Aspartate Amino Transferase 13 U/L (0-32); Globulin 4.3 g/dL (1.3-4.6); Total Bilirubin 0.2 mg/dL (0.15-1.2); Total Protein 7.3 g/dL (6.6-8.7)
[2022-01-13 10:28] LABS: Creatinine Clr Calc Pharmacy 40.9497
[2022-01-13 11:23] VITALS: BP 126/60; PULSE 58; RESP 18; TEMP 36.3; O2SAT 95
[2022-01-13 12:44] VITALS: BP 156/69; PULSE 72; RESP 18; TEMP 36.3; O2SAT 99
== END 2022-01-13 08:53 | disposition home or self-care (01) ==
PROVIDERS: PCP Internal Medicine; Visit Provider Internal Medicine Rheumatology
DX: M06.041 Rheumatoid arthritis without rheumatoid factor, right hand (principal); M06.042 Rheumatoid arthritis without rheumatoid factor, left hand; Z79.899 Other long term (current) drug therapy
CPT/HCPCS: 80076; 82565; 85025; 85651; 96365; 96366; 96375; J1200; J2920; J7050; Q5104

== ENCOUNTER → 2022-01-21 11:03 | Outpatient (BNVA) | payer MEDICARE, OTHER, SELFPAY | PROVIDERS: PCP Internal Medicine; Visit Provider Podiatrist Foot & Ankle Surgery | DX: E11.42 Type 2 diabetes mellitus with diabetic polyneuropathy (principal); L60.3 Nail dystrophy; Z79.4 Long term (current) use of insulin; E11.610 Type 2 diabetes mellitus with diabetic neuropathic arthropathy | CPT/HCPCS: 73630; 99214 ==

== ENCOUNTER 2022-02-11 09:45 | Outpatient (CLI) | payer MEDICARE, OTHER, SELFPAY ==
[2022-02-11 10:00] VITALS: BP 135/64; PULSE 59; RESP 18; TEMP 36.3; O2SAT 99
[2022-02-11 10:32] LABS: Basophils # 0.1 10^3/uL (0.0-0.1); Basophils % 0.3 %; Eosinophils # 0.1 10^3/uL (0.0-0.8); Eosinophils % 0.5 %; Hematocrit 34.9 % (37.0-47.0); Hemoglobin 10.3 g/dL (11.5-15.3); Lymphocytes # 1.4 10^3/uL (0.8-4.8); Lymphocytes % 7.6 %; Mean Corpuscular HGB Conc 29.5 g/dL (30.0-36.0); Mean Corpuscular Hemoglobin 28.8 pg (28.0-34.0); Mean Corpuscular Volume 97.5 fl (81-99); Mean Platelet Volume 10.7 fL (7.4-10.4); Monocytes # 0.8 10^3/uL (0.2-0.9); Monocytes % 4.2 %; Neutrophils # 15.68 10^3/uL (1.8-7.7); Nucleated Red Blood Cells % 0 %; Platelet Count 431 10^3/cmm (130-400); Red Blood Count 3.58 10^6/uL (4.1-5.3); Red Cell Distribution Width 15.1 % (12.1-15.1); White Blood Count 18.2 10^3/uL (4.0-10.0)
[2022-02-11 10:34] LABS: Erythrocyte Sedimentation Rate 101 mm/hr (0-15)
[2022-02-11] MEDS: sodium chloride 0.9% 250 ML 50 ML IV (10:35)
[2022-02-11] MEDS: acetaminophen 325 mg Tablet 650 MG PO (10:35)
[2022-02-11] MEDS: diphenhydrAMINE 50 mg/mL SDV 1mL 25 MG IVP (10:37)
[2022-02-11 10:52] LABS: Alanine Aminotransferase 8 U/L (0-33); Albumin Level 3.4 g/dL (3.5-5.2); Alkaline Phosphatase 129 U/L (35-105); Aspartate Amino Transferase 16 U/L (0-32); Globulin 4.6 g/dL (1.3-4.6); Total Bilirubin 0.3 mg/dL (0.15-1.2)
[2022-02-11 11:21] VITALS: BP 129/61; PULSE 50; RESP 18; TEMP 36.7; O2SAT 96
[2022-02-11 12:37] VITALS: BP 139/61; PULSE 58; RESP 18; TEMP 36.1; O2SAT 95
== END 2022-02-11 09:46 | disposition home or self-care (01) ==
PROVIDERS: PCP Internal Medicine; Visit Provider Internal Medicine Rheumatology
DX: M06.041 Rheumatoid arthritis without rheumatoid factor, right hand (principal); M06.042 Rheumatoid arthritis without rheumatoid factor, left hand; Z79.899 Other long term (current) drug therapy
CPT/HCPCS: 36415; 80076; 82565; 85025; 85651; 96365; 96366; 96375; J1200; J2920; J7050; Q5104

== ENCOUNTER → 2022-03-04 09:21 | Outpatient (BNVA) | payer MEDICARE, OTHER, SELFPAY | PROVIDERS: PCP Internal Medicine; Visit Provider Podiatrist Foot & Ankle Surgery | DX: E11.42 Type 2 diabetes mellitus with diabetic polyneuropathy (principal); L60.3 Nail dystrophy; M19.071 Primary osteoarthritis, right ankle and foot; E11.610 Type 2 diabetes mellitus with diabetic neuropathic arthropathy; M76.51 Patellar tendinitis, right knee | CPT/HCPCS: 73560; 73565; 73630; 99214 ==

== ENCOUNTER 2022-03-17 11:58 | Outpatient (CLI) | payer MEDICARE, OTHER, SELFPAY ==
[2022-03-17 12:15] VITALS: BP 155/67; PULSE 65; RESP 18; TEMP 36.2; O2SAT 99
[2022-03-17] MEDS: acetaminophen 325 mg Tablet 650 MG PO (12:48)
[2022-03-17] MEDS: sodium chloride 0.9% 250 ML 50 ML IV (12:48)
[2022-03-17] MEDS: diphenhydrAMINE 50 mg/mL SDV 1mL 25 MG IVP (12:51)
[2022-03-17 14:56] VITALS: BP 144/68; PULSE 70; RESP 18; TEMP 36.7; O2SAT 97
== END 2022-03-17 11:59 | disposition home or self-care (01) ==
PROVIDERS: PCP Internal Medicine; Visit Provider Internal Medicine Rheumatology
DX: M06.041 Rheumatoid arthritis without rheumatoid factor, right hand (principal)
CPT/HCPCS: 96365; 96366; 96375; A4222; J1200; J2920; J7050; Q5104

== ENCOUNTER 2022-04-21 09:53 | Outpatient (CLI) | payer MEDICARE, OTHER, SELFPAY ==
[2022-04-21 10:23] LABS: Basophils # 0.1 10^3/uL (0.0-0.1); Basophils % 0.4 %; Eosinophils # 0.4 10^3/uL (0.0-0.8); Eosinophils % 2.1 %; Hematocrit 35.3 % (37.0-47.0); Hemoglobin 10.5 g/dL (11.5-15.3); Lymphocytes # 2.4 10^3/uL (0.8-4.8); Lymphocytes % 13.7 %; Mean Corpuscular HGB Conc 29.7 g/dL (30.0-36.0); Mean Corpuscular Hemoglobin 29.2 pg (28.0-34.0); Mean Corpuscular Volume 98.1 fl (81-99); Mean Platelet Volume 10.3 fL (7.4-10.4); Monocytes % 5.8 %; Neutrophils # 13.68 10^3/uL (1.8-7.7); Neutrophils % 76.9 %; Nucleated Red Blood Cells % 0 %; Platelet Count 419 10^3/cmm (130-400); Red Cell Distribution Width 14.9 % (12.1-15.1); White Blood Count 17.8 10^3/uL (4.0-10.0)
[2022-04-21 10:25] VITALS: BP 123/59; PULSE 60; RESP 18; TEMP 36.9; O2SAT 97
[2022-04-21 10:27] LABS: Erythrocyte Sedimentation Rate 44 mm/hr (0-15)
[2022-04-21] MEDS: sodium chloride 0.9% 250 ML 50 ML IV (10:37)
[2022-04-21] MEDS: acetaminophen 325 mg Tablet 650 MG PO (10:38)
[2022-04-21] MEDS: diphenhydrAMINE 50 mg/mL SDV 1mL 25 MG IVP (10:39)
[2022-04-21 10:46] LABS: Alanine Aminotransferase 18 U/L (0-33); Albumin Level 3.1 g/dL (3.5-5.2); Alkaline Phosphatase 107 U/L (35-105); Aspartate Amino Transferase 12 U/L (0-32); Globulin 4.8 g/dL (1.3-4.6); Total Bilirubin 0.3 mg/dL (0.15-1.2); Total Protein 7.9 g/dL (6.6-8.7)
[2022-04-21 13:03] VITALS: BP 113/81; PULSE 68; RESP 18; TEMP 36.6; O2SAT 99
== END 2022-04-21 09:54 | disposition home or self-care (01) ==
PROVIDERS: PCP Internal Medicine; Visit Provider Internal Medicine Rheumatology
DX: M06.041 Rheumatoid arthritis without rheumatoid factor, right hand (principal)
CPT/HCPCS: 80076; 82565; 85025; 85651; 96365; 96366; 96375; A4222; J1200; J2920; J7050; Q5104

== ENCOUNTER 2022-05-20 10:28 | Outpatient (CLI) | payer MEDICARE, OTHER, SELFPAY ==
[2022-05-20 10:58] VITALS: BP 145/67; PULSE 70; RESP 18; TEMP 36.7; O2SAT 98
[2022-05-20] MEDS: sodium chloride 0.9% 250 ML 50 ML IV (11:16)
[2022-05-20] MEDS: acetaminophen 325 mg Tablet 650 MG PO (11:17)
[2022-05-20] MEDS: diphenhydrAMINE 50 mg/mL SDV 1mL 25 MG IVP (11:18)
[2022-05-20 13:31] VITALS: BP 141/76; PULSE 76; RESP 18; TEMP 36.9; O2SAT 97
== END 2022-05-20 10:29 | disposition home or self-care (01) ==
LOC: ONCMED 10:28
PROVIDERS: PCP Internal Medicine; Visit Provider Internal Medicine Rheumatology
DX: M06.041 Rheumatoid arthritis without rheumatoid factor, right hand (principal)
CPT/HCPCS: 96365; 96366; 96375; A4222; J1200; J1745; J2920; J7050

== ENCOUNTER → 2022-06-17 09:34 | Outpatient (BNVA) | payer MEDICARE, OTHER, SELFPAY | PROVIDERS: PCP Internal Medicine; Visit Provider Podiatrist Foot & Ankle Surgery | DX: E11.610 Type 2 diabetes mellitus with diabetic neuropathic arthropathy (principal); E11.42 Type 2 diabetes mellitus with diabetic polyneuropathy; L60.3 Nail dystrophy; M76.51 Patellar tendinitis, right knee; Z79.4 Long term (current) use of insulin | CPT/HCPCS: 73630; 99214 ==

== ENCOUNTER 2022-07-07 08:40 | Outpatient (CLI) | payer MEDICARE, OTHER, SELFPAY ==
[2022-07-07 09:08] VITALS: BP 108/52; PULSE 64; RESP 18; TEMP 36.8; O2SAT 97
[2022-07-07 09:16] LABS: Basophils # 0.1 10^3/uL (0.0-0.1); Basophils % 0.4 %; Eosinophils # 0.5 10^3/uL (0.0-0.8); Eosinophils % 2.9 %; Hematocrit 31.1 % (37.0-47.0); Hemoglobin 9.1 g/dL (11.5-15.3); Lymphocytes # 2.4 10^3/uL (0.8-4.8); Lymphocytes % 14.8 %; Mean Corpuscular HGB Conc 29.3 g/dL (30.0-36.0); Mean Corpuscular Hemoglobin 28.1 pg (28.0-34.0); Mean Platelet Volume 10.5 fL (7.4-10.4); Monocytes # 1.4 10^3/uL (0.2-0.9); Monocytes % 8.3 %; Neutrophils # 11.85 10^3/uL (1.8-7.7); Neutrophils % 72.6 %; Nucleated Red Blood Cells % 0 %; Platelet Count 405 10^3/cmm (130-400); Red Blood Count 3.24 10^6/uL (4.1-5.3); White Blood Count 16.3 10^3/uL (4.0-10.0)
[2022-07-07 09:44] LABS: Erythrocyte Sedimentation Rate 49 mm/hr (0-15)
[2022-07-07] MEDS: sodium chloride 0.9% 250 ML 50 ML IV (09:44)
[2022-07-07] MEDS: acetaminophen 325 mg Tablet 650 MG PO (09:45)
[2022-07-07] MEDS: diphenhydrAMINE 50 mg/mL SDV 1mL 25 MG IVP (09:46)
[2022-07-07 10:06] LABS: Alanine Aminotransferase 7 U/L (0-33); Albumin Level 2.9 g/dL (3.5-5.2); Alkaline Phosphatase 83 U/L (35-105); Globulin 3.7 g/dL (1.3-4.6); Total Bilirubin 0.2 mg/dL (0.15-1.2); Total Protein 6.6 g/dL (6.6-8.7)
[2022-07-07 10:07] LABS: Aspartate Amino Transferase 11 U/L (0-32)
[2022-07-07 12:00] VITALS: BP 125/69; PULSE 63; RESP 18; TEMP 36.3; O2SAT 95
== END 2022-07-07 08:41 | disposition home or self-care (01) ==
LOC: ONCMED 08:40
PROVIDERS: PCP Internal Medicine; Visit Provider Internal Medicine Rheumatology
DX: M06.041 Rheumatoid arthritis without rheumatoid factor, right hand (principal); Z79.899 Other long term (current) drug therapy
CPT/HCPCS: 80076; 82565; 85025; 85651; 96365; 96366; 96375; A4222; J1200; J1745; J2920; J7050

== ENCOUNTER 2022-08-05 10:37 | Oncology outpatient (recurring) (ONCR) | payer MEDICARE, OTHER, SELFPAY ==
[2022-08-05 10:38] VITALS: BP 138/59; PULSE 60; RESP 16; TEMP 36.1; O2SAT 97
[2022-08-05] MEDS: acetaminophen 325 mg Tablet 650 MG PO (11:07)
[2022-08-05] MEDS: sodium chloride 0.9% 250 ML 75 ML IV (11:07)
[2022-08-05] MEDS: diphenhydrAMINE 50 mg/mL SDV 1mL 25 MG IVP (11:14)
[2022-08-05 13:40] VITALS: BP 151/62; PULSE 72; RESP 18; TEMP 36.4; O2SAT 72
== END 2022-08-28 23:59 | disposition home or self-care (01) ==
PROVIDERS: PCP Internal Medicine; Visit Provider Internal Medicine Rheumatology
DX: M06.041 Rheumatoid arthritis without rheumatoid factor, right hand (principal); M06.042 Rheumatoid arthritis without rheumatoid factor, left hand; Z79.899 Other long term (current) drug therapy
CPT/HCPCS: 96361; 96365; 96366; 96375; J1200; J2920; J7050; Q5104

== ENCOUNTER 2022-08-19 08:50 | Outpatient (CLI) | payer MEDICARE, OTHER, SELFPAY ==
--- NOTE | 2022-08-19 09:22 | USCV_ITS ---
Adina Gracia Age: 76 Gender: F : 1945 Exam Date: 08/19/2022 09:39 Ordering Phys: Blossom Barney MD Technologist: ZAK Exam Location: [facility] [place] Indication: Cerebrovascular disease Risk Factors: Previous Vascular Surgery: Right Brachial BP: / Left Brachial BP: / Right Left Velocity (cm/s) Spectral Plaque Velocity (cm/s) Spectral Plaque Syst/Diast Broadening Syst/Diast Broadening 72.20/ 11.70 Prox CCA 92.30 / 12.80 86.20/ 14.80 Mid CCA 87.20 / 14.50 82.30/ 17.90 Distal CCA 66.70 / 10.30 55.90/ 13.20 Prox ICA 161.20/ 32.20 81.60/ 21.80 Mid ICA 136.30/ 24.90 71.50/ 24.10 Distal ICA 96.70 / 26.00 76.10 ECA 115.40 0.95 ICA/CCA 1.75 Vertebral 64.50/ 17.10 cm/s 12.10/ 5.60 cm/s Subclavian 94.00 100.0 0 CONCLUSIONS Right ICA stenosis <50%. Left ICA stenosis 50-69% at the lower end of the range. Mild atheromatous plaque left carotid bulb/ICA. Normal antegrade Doppler flow noted in the right vertebral artery. Normal antegrade Doppler flow noted in the left vertebral artery. Naun Ojeda MD (Electronically Signed) Final Date: 19 August 2022 10:04 S
== END 2022-08-19 08:51 | disposition home or self-care (01) ==
LOC: RAD 08:52
PROVIDERS: PCP Internal Medicine; Visit Provider Internal Medicine
DX: I67.9 Cerebrovascular disease, unspecified (principal); I65.23 Occlusion and stenosis of bilateral carotid arteries; M06.041 Rheumatoid arthritis without rheumatoid factor, right hand; M06.042 Rheumatoid arthritis without rheumatoid factor, left hand; E11.610 Type 2 diabetes mellitus with diabetic neuropathic arthropathy; Z79.899 Other long term (current) drug therapy; Z71.89 Other specified counseling; M10.00 Idiopathic gout, unspecified site
CPT/HCPCS: 93880; 99214

== ENCOUNTER 2022-09-09 09:41 | Oncology outpatient (recurring) (ONCR) | payer MEDICARE, OTHER, SELFPAY ==
[2022-09-09] VITALS (7 sets, daily range): BP systolic 119–169; BP diastolic 56–71; PULSE 49–65; TEMP 36.5–36.9; O2SAT 95–99
[2022-09-09] MEDS: sodium chloride 0.9% 250 ML 100 ML IV (10:27)
[2022-09-09] MEDS: acetaminophen 325 mg Tablet 650 MG PO (10:27)
[2022-09-09] MEDS: diphenhydrAMINE 50 mg/mL SDV 1mL 25 MG IVP (10:28)
== END 2022-09-27 23:59 | disposition home or self-care (01) ==
PROVIDERS: PCP Internal Medicine; Visit Provider Internal Medicine Rheumatology
DX: M06.042 Rheumatoid arthritis without rheumatoid factor, left hand (principal); M06.041 Rheumatoid arthritis without rheumatoid factor, right hand
CPT/HCPCS: 96365; 96366; 96375; 96413; 96415; J1200; J2920; J7050; Q5104

== ENCOUNTER → 2022-09-15 09:14 | Outpatient (BNVA) | payer MEDICARE, OTHER, SELFPAY | PROVIDERS: PCP Internal Medicine; Visit Provider Podiatrist Foot & Ankle Surgery | DX: E11.610 Type 2 diabetes mellitus with diabetic neuropathic arthropathy (principal); E11.8 Type 2 diabetes mellitus with unspecified complications; E11.42 Type 2 diabetes mellitus with diabetic polyneuropathy; L60.3 Nail dystrophy; L84 Corns and callosities; Z79.4 Long term (current) use of insulin | CPT/HCPCS: 11055; 11721; 73630; 99213 ==

== ENCOUNTER → 2022-09-24 10:19 | Outpatient (BNVA) | payer MEDICARE, OTHER, SELFPAY | PROVIDERS: PCP Internal Medicine; Visit Provider Podiatrist Foot & Ankle Surgery | DX: E11.610 Type 2 diabetes mellitus with diabetic neuropathic arthropathy (principal); E11.42 Type 2 diabetes mellitus with diabetic polyneuropathy; Z79.4 Long term (current) use of insulin | CPT/HCPCS: 99213 ==

== ENCOUNTER 2022-10-07 09:39 | Oncology outpatient (recurring) (ONCR) | payer MEDICARE, OTHER, SELFPAY ==
[2022-10-07] VITALS (8 sets, daily range): BP systolic 102–126; BP diastolic 51–64; PULSE 54–64; RESP 16–18; TEMP 36.1–36.8; O2SAT 92–96
[2022-10-07 10:15] LABS: Basophils # 0.1 10^3/uL (0.0-0.1); Basophils % 0.5 %; Eosinophils # 0.4 10^3/uL (0.0-0.8); Eosinophils % 3.9 %; Hematocrit 30.4 % (37.0-47.0); Hemoglobin 9.1 g/dL (11.5-15.3); Lymphocytes # 2.2 10^3/uL (0.8-4.8); Lymphocytes % 20.6 %; Mean Corpuscular HGB Conc 29.9 g/dL (30.0-36.0); Mean Corpuscular Hemoglobin 28.1 pg (28.0-34.0); Mean Corpuscular Volume 93.8 fl (81-99); Mean Platelet Volume 10.4 fL (7.4-10.4); Monocytes # 1.7 10^3/uL (0.2-0.9); Monocytes % 16.7 %; Neutrophils # 5.84 10^3/uL (1.8-7.7); Neutrophils % 55.8 %; Nucleated Red Blood Cells % 0 %; Platelet Count 354 10^3/cmm (130-400); Red Blood Count 3.24 10^6/uL (4.1-5.3); Red Cell Distribution Width 15.9 % (12.1-15.1); White Blood Count 10.5 10^3/uL (4.0-10.0)
[2022-10-07 10:38] LABS: Alanine Aminotransferase 13 U/L (0-33); Albumin Level 3.2 g/dL (3.5-5.2); Alkaline Phosphatase 96 U/L (35-105); Anion Gap 19.2 (5-19); Aspartate Amino Transferase 20 U/L (0-32); Blood Urea Nitrogen 49 mg/dL (8-23); C Reactive Protein 33.3 mg/L (0.0-4.9); Calcium 8.9 mg/dL (8.5-10.5); Carbon Dioxide 21 mmol/L (22-29); Chloride 98 mmol/L (98-107); Glucose 104 mg/dL (65-115); Osmolality Calculated 289 mOsm/kg (285-295); Potassium 5.2 mmol/L (3.5-5.1); Sodium 133 mmol/L (136-145); Total Bilirubin 0.2 mg/dL (0.15-1.2); Total Protein 7.2 g/dL (6.6-8.7)
[2022-10-07] MEDS: diphenhydrAMINE 50 mg/mL SDV 1mL 25 MG IVP (10:42)
[2022-10-07] MEDS: dexamethasone 10 mg/mL INJ 6 MG IVP (10:42)
[2022-10-07] MEDS: acetaminophen 325 mg Tablet 650 MG PO (10:43)
[2022-10-07] MEDS: sodium chloride 0.9% (100 ml) 100 ML 25 ML (10:43)
== END 2022-10-28 23:59 | disposition home or self-care (01) ==
LOC: ONCMED 09:39
PROVIDERS: PCP Internal Medicine; Visit Provider Internal Medicine Rheumatology
DX: M06.041 Rheumatoid arthritis without rheumatoid factor, right hand (principal); M06.042 Rheumatoid arthritis without rheumatoid factor, left hand
CPT/HCPCS: 80053; 85025; 86140; 96365; 96366; 96375; 96413; 96415; J1100; J1200; J7050; Q5104

== ENCOUNTER 2022-11-04 09:13 | Oncology outpatient (recurring) (ONCR) | payer MEDICARE, OTHER, SELFPAY ==
[2022-11-04] VITALS (8 sets, daily range): BP systolic 122–154; BP diastolic 57–70; PULSE 44–85; RESP 16; TEMP 35.7–36.9; O2SAT 94–99
[2022-11-04] MEDS: acetaminophen 325 mg Tablet 650 MG PO (10:05)
[2022-11-04] MEDS: dexamethasone 10 mg/mL INJ 6 MG IVP (10:05)
[2022-11-04] MEDS: diphenhydrAMINE 50 mg/mL SDV 1mL 25 MG IVP (10:06)
[2022-11-04] MEDS: sodium chloride 0.9% 250 ML 75 ML IV (10:06)
[2022-11-04] MEDS: infliximab-abda 600 MG in sodium chloride 0.9% 250 ML 10 MG IV (10:27)
== END 2022-11-27 23:59 | disposition home or self-care (01) ==
LOC: ONCMED 09:14
PROVIDERS: PCP Internal Medicine; Visit Provider Internal Medicine Rheumatology
DX: M06.041 Rheumatoid arthritis without rheumatoid factor, right hand (principal); M06.042 Rheumatoid arthritis without rheumatoid factor, left hand
CPT/HCPCS: 96365; 96366; 96375; J1100; J1200; J7050; Q5104

== ENCOUNTER 2022-12-02 10:07 | Oncology outpatient (recurring) (ONCR) | payer MEDICARE, OTHER, SELFPAY ==
[2022-12-02 10:59] LABS: Basophils # 0.1 10^3/uL (0.0-0.1); Basophils % 0.3 %; Eosinophils # 0.4 10^3/uL (0.0-0.8); Eosinophils % 2.2 %; Hematocrit 29.9 % (37.0-47.0); Hemoglobin 9.1 g/dL (11.5-15.3); Lymphocytes # 2.1 10^3/uL (0.8-4.8); Lymphocytes % 12.1 %; Mean Corpuscular HGB Conc 30.4 g/dL (30.0-36.0); Mean Corpuscular Hemoglobin 28.5 pg (28.0-34.0); Mean Corpuscular Volume 93.7 fl (81-99); Mean Platelet Volume 10.3 fL (7.4-10.4); Monocytes # 1.2 10^3/uL (0.2-0.9); Monocytes % 6.5 %; Neutrophils # 13.79 10^3/uL (1.8-7.7); Neutrophils % 77.7 %; Nucleated Red Blood Cells % 0 %; Platelet Count 413 10^3/cmm (130-400); Red Blood Count 3.19 10^6/uL (4.1-5.3); Red Cell Distribution Width 15.6 % (12.1-15.1); White Blood Count 17.8 10^3/uL (4.0-10.0)
[2022-12-02] MEDS: sodium chloride 0.9% 250 ML 75 ML IV (11:05)
[2022-12-02] MEDS: acetaminophen 325 mg Tablet 650 MG PO (11:06)
[2022-12-02] MEDS: dexamethasone 10 mg/mL INJ 6 MG IVP (11:07)
[2022-12-02 11:08] VITALS: BP 131/57; PULSE 64; RESP 16; TEMP 36.6; O2SAT 93
[2022-12-02 11:11] LABS: Erythrocyte Sedimentation Rate 46 mm/hr (0-15)
[2022-12-02] MEDS: diphenhydrAMINE 50 mg/mL SDV 1mL 25 MG IVP (11:13)
[2022-12-02 11:18] LABS: Alanine Aminotransferase 13 U/L (0-33); Albumin Level 3.3 g/dL (3.5-5.2); Alkaline Phosphatase 127 U/L (35-105); Aspartate Amino Transferase 13 U/L (0-32); Globulin 4.1 g/dL (1.3-4.6); Total Bilirubin 0.2 mg/dL (0.15-1.2); Total Protein 7.4 g/dL (6.6-8.7)
[2022-12-02] MEDS: infliximab-abda 600 MG in sodium chloride 0.9% 250 ML 10 MG IV (11:30)
[2022-12-02 12:05] VITALS: BP 135/57; PULSE 57; RESP 16; TEMP 36.3; O2SAT 93
[2022-12-02 12:35] VITALS: BP 124/60; PULSE 60; TEMP 36.7; O2SAT 94
[2022-12-02 12:50] VITALS: BP 118/62; PULSE 60; RESP 16; TEMP 36.7; O2SAT 95
[2022-12-02 13:31] VITALS: BP 121/61; PULSE 63; RESP 16; TEMP 36.5; O2SAT 93
[2022-12-02 14:20] VITALS: BP 150/63; PULSE 75; RESP 16; TEMP 36.1; O2SAT 93
== END 2022-12-28 23:59 | disposition home or self-care (01) ==
PROVIDERS: PCP Internal Medicine; Visit Provider Internal Medicine Rheumatology
DX: M06.041 Rheumatoid arthritis without rheumatoid factor, right hand (principal); M06.042 Rheumatoid arthritis without rheumatoid factor, left hand
CPT/HCPCS: 80076; 82565; 85025; 85651; 96375; 96413; J1100; J1200; J7050; Q5104

== ENCOUNTER → 2022-12-08 11:16 | Outpatient (BNVA) | payer MEDICARE, OTHER, SELFPAY | PROVIDERS: PCP Internal Medicine; Visit Provider Podiatrist Foot & Ankle Surgery | DX: M14.671 Charcot's joint, right ankle and foot (principal); E11.42 Type 2 diabetes mellitus with diabetic polyneuropathy; Z79.4 Long term (current) use of insulin | CPT/HCPCS: 73630 ==

== ENCOUNTER 2022-12-30 09:10 | Oncology outpatient (recurring) (ONCR) | payer MEDICARE, OTHER, SELFPAY ==
[2022-12-30 09:45] VITALS: BP 115/62; PULSE 59; RESP 16; TEMP 36.2; O2SAT 95
[2022-12-30] MEDS: acetaminophen 325 mg Tablet 650 MG PO (09:57)
[2022-12-30] MEDS: sodium chloride 0.9% 250 ML 75 ML IV (09:57)
[2022-12-30] MEDS: methylPREDNISolone sod succ 40 mg SDV IVP (09:57)
[2022-12-30] MEDS: diphenhydrAMINE 50 mg/mL SDV 1mL 25 MG IVP (10:01)
[2022-12-30] MEDS: infliximab-abda 600 MG in sodium chloride 0.9% 250 ML 10 MG IV (10:39)
[2022-12-30 13:20] VITALS: BP 115/62; PULSE 59; RESP 16; TEMP 36.2; O2SAT 95
== END 2023-01-28 23:59 | disposition home or self-care (01) ==
PROVIDERS: PCP Internal Medicine; Visit Provider Internal Medicine Rheumatology
DX: M06.041 Rheumatoid arthritis without rheumatoid factor, right hand (principal); M06.042 Rheumatoid arthritis without rheumatoid factor, left hand
CPT/HCPCS: 96365; 96366; 96375; J1200; J2920; J7050; Q5104

== ENCOUNTER → 2023-01-21 09:43 | Outpatient (BNVA) | payer MEDICARE, OTHER, SELFPAY | PROVIDERS: PCP Internal Medicine; Visit Provider Podiatrist Foot & Ankle Surgery | DX: L60.0 Ingrowing nail (principal); E11.610 Type 2 diabetes mellitus with diabetic neuropathic arthropathy; E11.42 Type 2 diabetes mellitus with diabetic polyneuropathy; Z79.4 Long term (current) use of insulin | CPT/HCPCS: 99214 ==

== ENCOUNTER → 2023-01-26 09:10 | Outpatient (BNVA) | payer MEDICARE, OTHER, SELFPAY | PROVIDERS: PCP Internal Medicine; Visit Provider Internal Medicine Rheumatology | DX: M06.041 Rheumatoid arthritis without rheumatoid factor, right hand (principal); M06.042 Rheumatoid arthritis without rheumatoid factor, left hand; E11.610 Type 2 diabetes mellitus with diabetic neuropathic arthropathy; Z79.899 Other long term (current) drug therapy; Z71.89 Other specified counseling; M10.00 Idiopathic gout, unspecified site | CPT/HCPCS: 99214 ==

== ENCOUNTER 2023-02-11 09:21 | Oncology outpatient (recurring) (ONCR) | payer MEDICARE, OTHER, SELFPAY ==
[2023-02-11] VITALS (8 sets, daily range): BP systolic 128–154; BP diastolic 61–72; PULSE 55–68; RESP 16–18; TEMP 35.8–36.3; O2SAT 95–99; BMI 35.7
[2023-02-11 11:05] LABS: Basophils # 0.1 10^3/uL (0.0-0.1); Basophils % 0.3 %; Eosinophils # 0.4 10^3/uL (0.0-0.8); Eosinophils % 1.7 %; Hematocrit 29.6 % (36-47); Lymphocytes % 9.9 %; Mean Corpuscular HGB Conc 30.1 g/dL (30-55); Mean Corpuscular Hemoglobin 28.3 pg (27-33); Mean Platelet Volume 10.3 fL (7.4-10.4); Monocytes # 1.1 10^3/uL (0.2-0.9); Monocytes % 5.4 %; Neutrophils # 16.42 10^3/uL (1.8-7.7); Neutrophils % 81.4 %; Nucleated Red Blood Cells % 0 %; Platelet Count 429 10^3/cmm (157-399); Red Blood Count 3.15 10^6/uL (3.85-5.65); Red Cell Distribution Width 15.9 % (12.1-15.1); White Blood Count 20.18 10^3/uL (3.29-11.43)
[2023-02-11] MEDS: sodium chloride 0.9% 250 ML 75 ML IV (11:10)
[2023-02-11] MEDS: acetaminophen 325 mg Tablet 650 MG PO (11:13)
[2023-02-11] MEDS: diphenhydrAMINE 50 mg/mL SDV 1mL 25 MG IVP (11:15)
[2023-02-11] MEDS: methylPREDNISolone sod succ 40 mg SDV IVP (11:20)
[2023-02-11 11:26] LABS: Alanine Aminotransferase 12 U/L (0-33); Albumin Level 3.1 g/dL (3.5-5.2); Alkaline Phosphatase 133 U/L (35-105); Aspartate Amino Transferase 10 U/L (0-32); C Reactive Protein 64.5 mg/L (0.0-4.9); Globulin 4.5 g/dL (1.3-4.6); Total Bilirubin 0.2 mg/dL (0.15-1.2); Total Protein 7.6 g/dL (6.6-8.7)
[2023-02-11] MEDS: SODIUM CHLORIDE 0.9% IV (11:35)
[2023-02-11] MEDS: INFLIXIMAB ABDA IV (11:35)
== END 2023-02-27 23:59 | disposition home or self-care (01) ==
LOC: ONCMED 09:22
PROVIDERS: PCP Internal Medicine; Visit Provider Internal Medicine Rheumatology
DX: M19.90 Unspecified osteoarthritis, unspecified site (principal); Z79.899 Other long term (current) drug therapy
CPT/HCPCS: 80076; 82565; 85025; 86140; 96374; 96375; 96413; 96415; J1200; J2920; J7050; Q5104

== ENCOUNTER 2023-02-24 10:34 | Outpatient (CLI) | payer MEDICARE, OTHER, SELFPAY ==
--- NOTE | 2023-02-24 10:47 | MM_ITS ---
WS: [id number] Bilateral screening 3D tomosynthesis digital mammogram, 02/24/2023 Clinical Data: SCREENING Comparison: 11/05/2021, 07/27/2019, 02/10/2018, 09/07/2016, 02/12/2015. Findings: The breast parenchymal pattern shows fibroglandular tissue. No spiculated masses or clustered calcifi cations are seen. There are no secondary signs of carcinoma. Mole markers are on the left breast. The re is deformity and asymmetry of the upper outer quadrant of the right breast unchanged. Impression: 1. Negative bilateral mammogram unchanged. 2. Recommend annual screening mammograms. MM/[place] [id number] BIRADS: 1-Negative FOLLOW UP: 1 Year Follow-up The CAD apple checker was used.
== END 2023-02-24 10:35 | disposition home or self-care (01) ==
PROVIDERS: PCP Internal Medicine; Visit Provider Internal Medicine
DX: Z12.31 Encounter for screening mammogram for malignant neoplasm of breast (principal)
CPT/HCPCS: 77063; 77067

== ENCOUNTER → 2023-03-03 10:50 | Outpatient (BNVA) | payer MEDICARE, OTHER, SELFPAY | PROVIDERS: PCP Internal Medicine; Visit Provider Podiatrist Foot & Ankle Surgery | DX: E11.610 Type 2 diabetes mellitus with diabetic neuropathic arthropathy (principal); E11.42 Type 2 diabetes mellitus with diabetic polyneuropathy; Z79.4 Long term (current) use of insulin | CPT/HCPCS: 99213 ==

== ENCOUNTER → 2023-03-11 11:10 | Outpatient (BNVA) | payer MEDICARE, OTHER, SELFPAY | PROVIDERS: PCP Internal Medicine; Visit Provider Nurse Practitioner Family | DX: J18.9 Pneumonia, unspecified organism (principal); R05.9 Cough, unspecified; J06.9 Acute upper respiratory infection, unspecified | CPT/HCPCS: 80053 ==

== ENCOUNTER 2023-03-24 08:40 | Oncology outpatient (recurring) (ONCR) | payer MEDICARE, OTHER, SELFPAY ==
[2023-03-24] VITALS (7 sets, daily range): BP systolic 125–158; BP diastolic 56–70; PULSE 54–67; RESP 16; TEMP 35.7–36.6; O2SAT 96–99; BMI 33.7
[2023-03-24] MEDS: sodium chloride 0.9% 250 ML 75 ML IV (10:22)
[2023-03-24] MEDS: acetaminophen 325 mg Tablet 650 MG PO (10:23)
[2023-03-24] MEDS: diphenhydrAMINE 50 mg/mL SDV 1mL 25 MG IVP (10:25)
[2023-03-24] MEDS: methylPREDNISolone sod succ 40 mg SDV IVP (10:26)
== END 2023-03-30 23:59 | disposition home or self-care (01) ==
LOC: ONCMED 08:44
PROVIDERS: PCP Internal Medicine; Visit Provider Internal Medicine
DX: M06.042 Rheumatoid arthritis without rheumatoid factor, left hand (principal); M06.041 Rheumatoid arthritis without rheumatoid factor, right hand
CPT/HCPCS: 96375; 96413; 96415; J1200; J2920; J7050; Q5104

== ENCOUNTER → 2023-04-28 12:45 | Outpatient (BNVA) | payer MEDICARE, OTHER, SELFPAY | PROVIDERS: PCP Internal Medicine; Visit Provider Internal Medicine Rheumatology | DX: M06.041 Rheumatoid arthritis without rheumatoid factor, right hand (principal); M06.042 Rheumatoid arthritis without rheumatoid factor, left hand; E11.610 Type 2 diabetes mellitus with diabetic neuropathic arthropathy; Z79.899 Other long term (current) drug therapy; Z71.89 Other specified counseling; M10.00 Idiopathic gout, unspecified site; E11.42 Type 2 diabetes mellitus with diabetic polyneuropathy; L60.3 Nail dystrophy; Z79.4 Long term (current) use of insulin | CPT/HCPCS: 11721; 99214 ==

== ENCOUNTER 2023-04-29 09:01 | Oncology outpatient (recurring) (ONCR) | payer MEDICARE, OTHER, SELFPAY ==
[2023-04-29] VITALS (7 sets, daily range): BP systolic 125–160; BP diastolic 56–71; PULSE 54–62; RESP 14–18; TEMP 35.9–36.4; O2SAT 95–99
[2023-04-29] MEDS: sodium chloride 0.9% 250 ML 75 ML IV (10:50)
[2023-04-29] MEDS: diphenhydrAMINE 50 mg/mL SDV 1mL 25 MG IVP (10:52)
[2023-04-29] MEDS: methylPREDNISolone sod succ 40 mg/mL INJ IVP (10:57)
[2023-04-29] MEDS: acetaminophen 325 mg Tablet 650 MG PO (11:02)
== END 2023-04-29 23:59 | disposition home or self-care (01) ==
PROVIDERS: PCP Internal Medicine; Visit Provider Internal Medicine
DX: M06.042 Rheumatoid arthritis without rheumatoid factor, left hand (principal); M06.041 Rheumatoid arthritis without rheumatoid factor, right hand
CPT/HCPCS: 96365; 96366; 96375; J1200; J2920; J7050; Q5104

== ENCOUNTER 2023-06-29 09:00 | Oncology outpatient (recurring) (ONCR) | payer MEDICARE, OTHER, SELFPAY ==
[2023-06-01 09:50] LABS: Basophils # 0.1 10^3/uL (0.0-0.1); Basophils % 0.4 %; Eosinophils # 0.3 10^3/uL (0.0-0.8); Hematocrit 31.8 % (36-47); Lymphocytes # 1.8 10^3/uL (0.8-4.8); Lymphocytes % 10.6 %; Mean Corpuscular HGB Conc 30.5 g/dL (30-55); Mean Corpuscular Hemoglobin 28.6 pg (27-33); Mean Corpuscular Volume 93.8 fl (85-98); Mean Platelet Volume 10.2 fL (7.4-10.4); Monocytes % 6.2 %; Neutrophils # 13.35 10^3/uL (1.8-7.7); Neutrophils % 79.8 %; Nucleated Red Blood Cells % 0 %; Platelet Count 404 10^3/cmm (157-399); Red Blood Count 3.39 10^6/uL (3.85-5.65); Red Cell Distribution Width 15.3 % (12.1-15.1); White Blood Count 16.75 10^3/uL (3.29-11.43)
[2023-06-01 10:06] LABS: Alanine Aminotransferase 8 U/L (0-33); Albumin Level 3.4 g/dL (3.5-5.2); Alkaline Phosphatase 104 U/L (35-105); Aspartate Amino Transferase 7 U/L (0-32); C Reactive Protein 133.4 mg/L (0.0-4.9); Globulin 4.3 g/dL (1.3-4.6); Total Bilirubin 0.2 mg/dL (0.15-1.2); Total Protein 7.7 g/dL (6.6-8.7)
[2023-06-01] MEDS: sodium chloride 0.9% 250 ML 75 ML IV (10:19)
[2023-06-01] MEDS: acetaminophen 325 mg Tablet 650 MG PO (10:19)
[2023-06-01] MEDS: methylPREDNISolone sod succ 40 mg/mL INJ IVP (10:22)
[2023-06-01] MEDS: diphenhydrAMINE 50 mg/mL SDV 1mL 25 MG IVP (10:26)
[2023-06-01 10:27] VITALS: BP 144/69; PULSE 64; TEMP 36.3; O2SAT 94
[2023-06-01 12:00] VITALS: BP 127/68; PULSE 62; RESP 16; TEMP 36.3; O2SAT 94
[2023-06-01 12:15] VITALS: BP 116/67; PULSE 62; RESP 16; TEMP 36.7; O2SAT 91
[2023-06-01 13:00] VITALS: BP 134/48; PULSE 62; TEMP 36.7; O2SAT 91
[2023-06-01 13:50] VITALS: BP 173/69; PULSE 82; TEMP 36.4
[2023-06-01 17:26] VITALS: BP 173/69; PULSE 82; TEMP 36.4
[2023-06-29] VITALS (7 sets, daily range): BP systolic 112–137; BP diastolic 55–68; PULSE 56–64; RESP 16–17; TEMP 36.4–36.7; O2SAT 94–99; BMI 35.7
[2023-06-29] MEDS: acetaminophen 325 mg Tablet 650 MG PO (09:26)
[2023-06-29] MEDS: sodium chloride 0.9% 250 ML 75 ML IV (09:28)
[2023-06-29] MEDS: diphenhydrAMINE 50 mg/mL SDV 1mL 25 MG IVP (09:29)
[2023-06-29] MEDS: methylPREDNISolone sod succ 40 mg/mL INJ IVP (09:30)
[2023-06-29] MEDS: SODIUM CHLORIDE 0.9% IV (09:50)
[2023-06-29] MEDS: INFLIXIMAB ABDA IV (09:50)
== END 2023-06-29 23:59 | disposition home or self-care (01) ==
PROVIDERS: PCP Internal Medicine; Visit Provider Internal Medicine
DX: M06.042 Rheumatoid arthritis without rheumatoid factor, left hand; M06.041 Rheumatoid arthritis without rheumatoid factor, right hand; Z53.9 Procedure and treatment not carried out, unspecified reason
CPT/HCPCS: 80076; 82565; 85025; 86140; 96365; 96366; 96375; 96413; 96415; J1200; J2920; J7050; Q5104

== ENCOUNTER → 2023-07-27 10:06 | Outpatient (BNVA) | payer MEDICARE, OTHER, SELFPAY | PROVIDERS: PCP Internal Medicine; Visit Provider Podiatrist Foot & Ankle Surgery | DX: E11.610 Type 2 diabetes mellitus with diabetic neuropathic arthropathy (principal); E11.42 Type 2 diabetes mellitus with diabetic polyneuropathy; L60.3 Nail dystrophy; S90.812A Abrasion, left foot, initial encounter; X58.XXXA Exposure to other specified factors, initial encounter; Z79.4 Long term (current) use of insulin | CPT/HCPCS: 11721; 99213 ==

== ENCOUNTER 2023-08-04 09:04 | Oncology outpatient (recurring) (ONCR) | payer MEDICARE, OTHER, SELFPAY ==
[2023-08-04] MEDS: sodium chloride 0.9% 250 ML 50 ML IV (10:22)
[2023-08-04] MEDS: acetaminophen 325 mg Tablet 650 MG PO (10:22)
[2023-08-04] MEDS: methylPREDNISolone sod succ 40 mg/mL INJ IVP (10:23)
[2023-08-04] MEDS: diphenhydrAMINE 50 mg/mL SDV 1mL 25 MG IVP (10:26)
[2023-08-04] MEDS: INFLIXIMAB ABDA IV (10:53)
[2023-08-04] MEDS: SODIUM CHLORIDE 0.9% IV (10:53)
[2023-08-04 10:55] VITALS: BP 129/67; PULSE 55; RESP 16; TEMP 36.4; O2SAT 96
[2023-08-04 11:30] VITALS: BP 124/59; PULSE 63; RESP 14; TEMP 36.1; O2SAT 95
[2023-08-04 11:45] VITALS: BP 123/64; PULSE 52; RESP 16; TEMP 36.6; O2SAT 95
[2023-08-04 12:00] VITALS: BP 122/58; PULSE 52; RESP 17; TEMP 36.6; O2SAT 95
[2023-08-04 12:30] VITALS: BP 139/64; PULSE 67; RESP 16; TEMP 36.6; O2SAT 97
[2023-08-04 13:59] VITALS: BP 119/58; PULSE 60; RESP 16; TEMP 36.6; O2SAT 96
== END 2023-08-29 23:59 | disposition home or self-care (01) ==
PROVIDERS: PCP Internal Medicine; Visit Provider Internal Medicine
DX: M06.041 Rheumatoid arthritis without rheumatoid factor, right hand (principal); M06.042 Rheumatoid arthritis without rheumatoid factor, left hand
CPT/HCPCS: 96375; 96413; 96415; A4222; J1200; J2920; J7050; Q5104

== ENCOUNTER 2023-08-13 09:43 | Outpatient (CLI) | payer MEDICARE, OTHER, SELFPAY ==
--- NOTE | 2023-08-13 09:54 | US_ITS ---
WS: [id number] RENAL ULTRASOUND HISTORY: CHRONIC KIDNEY DZ,STAGE 3B COMPARISON: None available. TECHNIQUE: 2-D and color Doppler imaging of the kidney submitted. Right kidney: 10.4 cm x 5.5 cm x 6.8 cm. Cortex: 1.3 cm Normal echogenicity with no hydronephrosis or mass. Left kidney: 10.6 cm x 4.6 cm x 6.1 cm. Cortex: 1.3 cm Normal echogenicity with no hydronephrosis or mass. Aorta: Normal. Urinary Bladder: Minimally distended. IMPRESSION: Normal renal ultrasound. No hydronephrosis or increased echogenicity or cortical thinning.
== END 2023-08-13 09:44 | disposition home or self-care (01) ==
LOC: RAD 09:44
PROVIDERS: PCP Internal Medicine; Visit Provider Internal Medicine
DX: N18.32 Chronic kidney disease, stage 3b (principal)
CPT/HCPCS: 76770

== ENCOUNTER → 2023-08-18 09:24 | Outpatient (BNVA) | payer MEDICARE, OTHER, SELFPAY | PROVIDERS: PCP Internal Medicine; Visit Provider Internal Medicine Rheumatology | DX: M06.041 Rheumatoid arthritis without rheumatoid factor, right hand (principal); M06.042 Rheumatoid arthritis without rheumatoid factor, left hand; E11.610 Type 2 diabetes mellitus with diabetic neuropathic arthropathy; Z79.899 Other long term (current) drug therapy; Z71.89 Other specified counseling; M10.00 Idiopathic gout, unspecified site | CPT/HCPCS: 99214 ==

== ENCOUNTER 2023-09-16 08:39 | Oncology outpatient (recurring) (ONCR) | payer MEDICARE, OTHER, SELFPAY ==
[2023-09-16] VITALS (7 sets, daily range): BP systolic 146–158; BP diastolic 54–68; PULSE 57–85; RESP 16; TEMP 36.2–36.6; O2SAT 94–98
[2023-09-16] MEDS: sodium chloride 0.9% 250 ML 75 ML IV (09:26)
[2023-09-16] MEDS: acetaminophen 325 mg Tablet 650 MG PO (09:26)
[2023-09-16 09:29] LABS: Basophils # 0.1 10^3/uL (0.0-0.1); Basophils % 0.4 %; Eosinophils # 0.4 10^3/uL (0.0-0.8); Hematocrit 31.6 % (36-47); Lymphocytes # 2.5 10^3/uL (0.8-4.8); Lymphocytes % 14.1 %; Mean Corpuscular HGB Conc 30.7 g/dL (30-55); Mean Corpuscular Hemoglobin 28.6 pg (27-33); Mean Corpuscular Volume 93.2 fl (85-98); Mean Platelet Volume 10.1 fL (7.4-10.4); Monocytes # 1.2 10^3/uL (0.2-0.9); Monocytes % 6.9 %; Neutrophils # 13.12 10^3/uL (1.8-7.7); Nucleated Red Blood Cells % 0 %; Platelet Count 404 10^3/cmm (157-399); Red Blood Count 3.39 10^6/uL (3.85-5.65); Red Cell Distribution Width 16.6 % (12.1-15.1); White Blood Count 17.49 10^3/uL (3.29-11.43)
[2023-09-16] MEDS: diphenhydrAMINE 50 mg/mL SDV 1mL 25 MG IVP (09:29)
[2023-09-16] MEDS: methylPREDNISolone sod succ 40 mg/mL INJ IVP (09:33)
[2023-09-16 09:49] LABS: Alanine Aminotransferase 9 U/L (0-33); Albumin Level 3.4 g/dL (3.5-5.2); Alkaline Phosphatase 118 U/L (35-105); Aspartate Amino Transferase 10 U/L (0-32); Globulin 4.3 g/dL (1.3-4.6); Total Bilirubin 0.3 mg/dL (0.15-1.2); Total Protein 7.7 g/dL (6.6-8.7)
[2023-09-16] MEDS: INFLIXIMAB ABDA IV (10:10)
[2023-09-16] MEDS: SODIUM CHLORIDE 0.9% IV (10:10)
== END 2023-09-28 23:59 | disposition home or self-care (01) ==
PROVIDERS: Internal Medicine Rheumatology; PCP Internal Medicine; Visit Provider Internal Medicine
DX: M06.042 Rheumatoid arthritis without rheumatoid factor, left hand (principal); M06.041 Rheumatoid arthritis without rheumatoid factor, right hand
CPT/HCPCS: 80076; 82565; 85025; 86141; 96375; 96413; 96415; A4222; J1200; J2919; J7050; Q5104

== ENCOUNTER 2023-10-14 08:35 | Oncology outpatient (recurring) (ONCR) | payer MEDICARE, OTHER, SELFPAY ==
[2023-10-14] MEDS: acetaminophen 325 mg Tablet 650 MG PO (09:13)
[2023-10-14] MEDS: sodium chloride 0.9% 250 ML 75 ML IV (09:14)
[2023-10-14] MEDS: methylPREDNISolone sod succ 40 mg/mL INJ IVP (09:14)
[2023-10-14] MEDS: diphenhydrAMINE 50 mg/mL SDV 1mL 25 MG IVP (09:18)
[2023-10-14] MEDS: INFLIXIMAB ABDA IV (09:42)
[2023-10-14] MEDS: SODIUM CHLORIDE 0.9% IV (09:42)
[2023-10-14 09:45] VITALS: BP 144/64; PULSE 60; RESP 18; TEMP 36.6; O2SAT 92
[2023-10-14 10:00] VITALS: BP 119/57; PULSE 58; RESP 16; TEMP 36.3; O2SAT 91
[2023-10-14 10:15] VITALS: BP 125/56; PULSE 59; RESP 16; TEMP 36.2; O2SAT 92
[2023-10-14 10:45] VITALS: BP 146/66; PULSE 57; RESP 16; TEMP 36.6; O2SAT 95
[2023-10-14 11:15] VITALS: BP 133/71; PULSE 60; RESP 16; TEMP 36.8; O2SAT 94
[2023-10-14 12:07] VITALS: BP 139/61; PULSE 61; RESP 16; TEMP 36.6; O2SAT 96
== END 2023-10-29 23:59 | disposition home or self-care (01) ==
PROVIDERS: PCP Internal Medicine; Visit Provider Internal Medicine
DX: M06.042 Rheumatoid arthritis without rheumatoid factor, left hand (principal); M06.041 Rheumatoid arthritis without rheumatoid factor, right hand
CPT/HCPCS: 96365; 96366; 96367; 96374; 96375; J1200; J2919; J7050; Q5104

== ENCOUNTER → 2023-10-21 10:30 | Outpatient (BNVA) | payer MEDICARE, OTHER, SELFPAY | PROVIDERS: PCP Internal Medicine; Visit Provider Podiatrist Foot & Ankle Surgery | DX: E11.42 Type 2 diabetes mellitus with diabetic polyneuropathy (principal); L60.3 Nail dystrophy; Z79.4 Long term (current) use of insulin | CPT/HCPCS: 11721 ==

== ENCOUNTER 2023-11-11 08:46 | Oncology outpatient (recurring) (ONCR) | payer MEDICARE, OTHER, SELFPAY ==
[2023-11-11] VITALS (8 sets, daily range): BP systolic 126–165; BP diastolic 47–77; PULSE 58–75; RESP 16–18; TEMP 35.9–36.8; O2SAT 93–97
[2023-11-11 09:21] LABS: Basophils # 0.1 10^3/uL (0.0-0.1); Basophils % 0.3 %; Eosinophils # 0.3 10^3/uL (0.0-0.8); Eosinophils % 1.5 %; Hematocrit 31.6 % (36-47); Lymphocytes # 2.1 10^3/uL (0.8-4.8); Lymphocytes % 11.6 %; Mean Corpuscular HGB Conc 30.1 g/dL (30-55); Mean Corpuscular Hemoglobin 28.2 pg (27-33); Mean Corpuscular Volume 93.8 fl (85-98); Mean Platelet Volume 10.2 fL (7.4-10.4); Monocytes # 0.9 10^3/uL (0.2-0.9); Monocytes % 5.1 %; Neutrophils # 14.53 10^3/uL (1.8-7.7); Neutrophils % 79.3 %; Nucleated Red Blood Cells % 0 %; Platelet Count 395 10^3/cmm (157-399); Red Blood Count 3.37 10^6/uL (3.85-5.65); Red Cell Distribution Width 15.9 % (12.1-15.1); White Blood Count 18.33 10^3/uL (3.29-11.43)
[2023-11-11] MEDS: sodium chloride 0.9% 250 ML 75 ML IV (09:32)
[2023-11-11] MEDS: diphenhydrAMINE 50 mg/mL SDV 1mL 25 MG IVP (09:32)
[2023-11-11] MEDS: methylPREDNISolone sod succ 40 mg/mL INJ IVP (09:33)
[2023-11-11] MEDS: acetaminophen 325 mg Tablet 650 MG PO (09:33)
[2023-11-11 09:37] LABS: Alanine Aminotransferase 8 U/L (0-33); Albumin Level 3.3 g/dL (3.5-5.2); Alkaline Phosphatase 117 U/L (35-105); Aspartate Amino Transferase 10 U/L (0-32); C Reactive Protein 136.8 mg/L (0.0-4.9); Globulin 4.4 g/dL (1.3-4.6); Total Bilirubin 0.3 mg/dL (0.15-1.2); Total Protein 7.7 g/dL (6.6-8.7)
[2023-11-11] MEDS: infliximab-abda 800 MG in sodium chloride 0.9% 250 ML 10 MG IV (10:10)
== END 2023-11-28 23:59 | disposition home or self-care (01) ==
PROVIDERS: Internal Medicine Rheumatology; PCP Internal Medicine; Visit Provider Internal Medicine
DX: M06.042 Rheumatoid arthritis without rheumatoid factor, left hand (principal); M06.041 Rheumatoid arthritis without rheumatoid factor, right hand
CPT/HCPCS: 80076; 82565; 85025; 86140; 96375; 96413; 96415; J1200; J2919; J7050; Q5104

== ENCOUNTER 2023-12-09 09:00 | Oncology outpatient (recurring) (ONCR) | payer MEDICARE, OTHER, SELFPAY ==
--- NOTE | 2023-11-30 10:46 | USCV_ITS ---
Adina Gracia Age: 78 Gender: F : 1945 Exam Date: 11/30/2023 10:54 Ordering Phys: Blossom Barney MD Technologist: [employer] Exam Location: [facility] Indication: stenosis Risk Factors: Previous Vascular Surgery: Right Brachial BP: / Left Brachial BP: / Right Left Velocity (cm/s) Spectral Plaque Velocity (cm/s) Spectral Plaque Syst/Diast Broadening Syst/Diast Broadening 119.60/19.80 Prox CCA 126.40/ 23.80 112.30/14.30 Mid CCA 129.40/ 23.80 108.70/19.80 Distal CCA 117.80/ 21.00 60.40/ 11.40 Prox ICA 212.40/ 28.50 80.70/ 23.90 Mid ICA 82.50 / 12.10 106.50/24.60 Distal ICA 146.10/ 25.70 112.40 ECA 223.00 1.00 ICA/CCA 1.80 Antegrade Vertebral Antegrade 70.70/ 18.00 cm/s 87.10/ 9.20 cm/s Tri Subclavian Bi 177.7 203.6 0 0 CONCLUSIONS Right ICA stenosis <50%. Mild atheromatous plaque right carotid bulb/ICA. Left ICA stenosis 50-69% progressed compared to 2022 nearing the upper end of the range. Moderate atheromatous plaque left carotid bulb/ICA. Normal antegrade Doppler flow noted in the right vertebral artery. Normal antegrade Doppler flow noted in the left vertebral artery. Naun Ojeda MD (Electronically Signed) Final Date: 30 November 2023 12:02 S
[2023-12-09] VITALS (9 sets, daily range): BP systolic 123–149; BP diastolic 68–81; PULSE 51–69; RESP 17–18; TEMP 36.3–36.6; O2SAT 92–98
[2023-12-09] MEDS: sodium chloride 0.9% 250 ML 75 ML IV (09:09)
[2023-12-09] MEDS: methylPREDNISolone sod succ 40 mg/mL INJ IVP (09:10)
[2023-12-09] MEDS: acetaminophen 325 mg Tablet 650 MG PO (09:11)
[2023-12-09] MEDS: diphenhydrAMINE 50 mg/mL SDV 1mL 25 MG IVP (09:12)
[2023-12-09] MEDS: infliximab-abda 800 MG in sodium chloride 0.9% 250 ML 10 MG IV (09:49)
== END 2023-12-29 23:59 | disposition home or self-care (01) ==
PROVIDERS: PCP Internal Medicine; Visit Provider Internal Medicine
DX: M06.042 Rheumatoid arthritis without rheumatoid factor, left hand (principal); M06.041 Rheumatoid arthritis without rheumatoid factor, right hand; Z53.9 Procedure and treatment not carried out, unspecified reason
CPT/HCPCS: 93880; 96375; 96413; 96415; J1200; J2919; J7050; Q5104

== ENCOUNTER 2024-01-04 10:31 | Outpatient (CLI) | payer MEDICARE, OTHER, SELFPAY ==
--- NOTE | 2024-01-04 10:33 | MR_ITS ---
WS: [id number] MRI CERVICAL SPINE NONCONTRAST TECHNIQUE: Sagittal T1, T2 and STIR imaging. Axial T2, gradient, and fiesta imaging. CLINICAL INFORMATION: NECK PAIN/DEGENERATION OF CERVICAL INTERVERTEBRAL DISC COMPARISON: MRI 2020 FINDINGS: Straightening of the normal cervical lordosis. ACDF C5-C7. Small vessel changes in the tenzin. Tiny tyson tral protrusions in the upper thoracic spine. Cord signal appears normal. Small vessel changes in the tenzin. C2-C3: Mild LEFT bony foraminal narrowing. Mild facet arthropathy. Spinal canal is patent. C3-C4: Moderate facet arthropathy. Mild bilateral bony foraminal narrowing. Spinal canal is patent. C4-C5: Mild disc osteophytic ridging. Mild bilateral bony foraminal narrowing. Moderate facet arthrop athy. Spinal canal is patent. C5-C6: Postoperative changes ACDF. Mild LEFT and no significant RIGHT foraminal narrowing. Moderate f acet arthropathy. C6-C7: Postoperative changes ACDF. Moderate LEFT and no significant RIGHT bony foraminal narrowing. C7-T1: Mild bilateral bony foraminal narrowing. Visualized brain stem structures: Normal. Prevertebral soft tissues: Normal. MR/MR cervical spin wo con* [id number] IMPRESSION: 1. Straightening of the normal cervical lordosis. Postoperative changes ACDF C 5-C7. 2. Mild to moderate bony foraminal narrowing worse at LEFT C5-C6 and LEFT C6-C 7. 3. Moderate facet arthropathy worse at LEFT C2-3, bilateral C3-4, LEFT C4-5 an d bilateral C5-6.
== END 2024-01-04 10:32 | disposition home or self-care (01) ==
LOC: RAD 10:31
PROVIDERS: PCP Internal Medicine; Visit Provider Nurse Practitioner Family
DX: M99.61 Osseous and subluxation stenosis of intervertebral foramina of cervical region (principal); M50.30 Other cervical disc degeneration, unspecified cervical region; M43.22 Fusion of spine, cervical region; M47.892 Other spondylosis, cervical region
CPT/HCPCS: 72141

== ENCOUNTER 2024-01-06 08:30 | Oncology outpatient (recurring) (ONCR) | payer MEDICARE, OTHER, SELFPAY ==
[2024-01-06] VITALS (8 sets, daily range): BP systolic 113–142; BP diastolic 56–65; PULSE 53–66; RESP 16–17; TEMP 36.2–36.5; O2SAT 90–96
[2024-01-06] MEDS: diphenhydrAMINE 50 mg/mL SDV 1mL 25 MG IVP (09:21)
[2024-01-06] MEDS: acetaminophen 325 mg Tablet 650 MG PO (09:21)
[2024-01-06] MEDS: sodium chloride 0.9% 250 ML 75 ML IV (09:21)
[2024-01-06] MEDS: methylPREDNISolone sod succ 40 mg/mL INJ IVP (09:22)
[2024-01-06] MEDS: infliximab-abda 800 MG in sodium chloride 0.9% 250 ML 10 MG IV (09:41)
== END 2024-01-29 23:59 | disposition home or self-care (01) ==
PROVIDERS: PCP Internal Medicine; Visit Provider Internal Medicine
DX: M06.042 Rheumatoid arthritis without rheumatoid factor, left hand (principal); M06.041 Rheumatoid arthritis without rheumatoid factor, right hand; Z79.620 Long term (current) use of immunosuppressive biologic
CPT/HCPCS: 96365; 96375; 96413; 96415; A4222; J1200; J2919; J7050; Q5104

== ENCOUNTER → 2024-01-27 12:41 | Outpatient (BNVA) | payer MEDICARE, OTHER, SELFPAY | PROVIDERS: PCP Internal Medicine; Visit Provider Internal Medicine Rheumatology | DX: M06.041 Rheumatoid arthritis without rheumatoid factor, right hand (principal); M06.042 Rheumatoid arthritis without rheumatoid factor, left hand; E11.610 Type 2 diabetes mellitus with diabetic neuropathic arthropathy; Z79.899 Other long term (current) drug therapy; Z71.85 Encounter for immunization safety counseling; M10.00 Idiopathic gout, unspecified site; M19.041 Primary osteoarthritis, right hand; M19.042 Primary osteoarthritis, left hand; Z98.890 Other specified postprocedural states; M75.101 Unspecified rotator cuff tear or rupture of right shoulder, not specified as traumatic; M75.102 Unspecified rotator cuff tear or rupture of left shoulder, not specified as traumatic; D72.829 Elevated white blood cell count, unspecified | CPT/HCPCS: 99214 ==

== ENCOUNTER 2024-02-03 08:22 | Oncology outpatient (recurring) (ONCR) | payer MEDICARE, OTHER, SELFPAY ==
[2024-02-03 09:03] VITALS: BP 156/73; PULSE 67; RESP 18; TEMP 36.6; O2SAT 98
[2024-02-03 09:25] LABS: Basophils # 0.1 10^3/uL (0.0-0.1); Basophils % 0.4 %; Eosinophils # 0.3 10^3/uL (0.0-0.8); Eosinophils % 1.8 %; Hematocrit 30.5 % (36-47); Mean Corpuscular HGB Conc 30.5 g/dL (30-55); Mean Corpuscular Volume 91.9 fl (85-98); Monocytes # 0.9 10^3/uL (0.2-0.9); Monocytes % 4.8 %; Neutrophils # 14.42 10^3/uL (1.8-7.7); Neutrophils % 80.7 %; Nucleated Red Blood Cells % 0 %; Platelet Count 421 10^3/cmm (157-399); Red Blood Count 3.32 10^6/uL (3.85-5.65); Red Cell Distribution Width 15.9 % (12.1-15.1); White Blood Count 17.87 10^3/uL (3.29-11.43)
[2024-02-03] MEDS: acetaminophen 325 mg Tablet 650 MG PO (09:36)
[2024-02-03] MEDS: diphenhydrAMINE 50 mg/mL SDV 1mL 25 MG IVP (09:37)
[2024-02-03] MEDS: sodium chloride 0.9% 250 ML 75 ML IV (09:38)
[2024-02-03] MEDS: methylPREDNISolone sod succ 40 mg/mL INJ IVP (09:39)
[2024-02-03 09:44] LABS: Alanine Aminotransferase 9 U/L (0-33); Albumin Level 3.4 g/dL (3.5-5.2); Alkaline Phosphatase 118 U/L (35-105); Aspartate Amino Transferase 11 U/L (0-32); C Reactive Protein 53.4 mg/L (0.0-4.9); Globulin 4.7 g/dL (1.3-4.6); Total Bilirubin 0.2 mg/dL (0.15-1.2); Total Protein 8.1 g/dL (6.6-8.7)
[2024-02-03] MEDS: infliximab-abda 800 MG in sodium chloride 0.9% 250 ML 10 MG IV (09:56)
[2024-02-03 10:00] VITALS: BP 138/64; PULSE 61; RESP 18; TEMP 36.7; O2SAT 98
[2024-02-03 11:04] VITALS: BP 124/69; PULSE 54; RESP 16; TEMP 36.8; O2SAT 95
[2024-02-03 12:30] VITALS: BP 125/57; PULSE 54; RESP 18; TEMP 36.6; O2SAT 95; O2SAT 98
== END 2024-02-28 23:59 | disposition home or self-care (01) ==
PROVIDERS: Internal Medicine Rheumatology; PCP Internal Medicine; Visit Provider Internal Medicine
DX: Z79.899 Other long term (current) drug therapy; M06.042 Rheumatoid arthritis without rheumatoid factor, left hand; M06.041 Rheumatoid arthritis without rheumatoid factor, right hand
CPT/HCPCS: 80076; 82565; 85025; 86140; 96365; 96366; 96375; A4222; J1200; J2919; J7050; Q5104

== ENCOUNTER → 2024-02-10 10:57 | Outpatient (BNVA) | payer MEDICARE, OTHER, SELFPAY | PROVIDERS: PCP Internal Medicine; Visit Provider Podiatrist Foot & Ankle Surgery | DX: M14.671 Charcot's joint, right ankle and foot; M25.571 Pain in right ankle and joints of right foot; G89.29 Other chronic pain; E11.42 Type 2 diabetes mellitus with diabetic polyneuropathy; L60.3 Nail dystrophy; Z79.4 Long term (current) use of insulin | CPT/HCPCS: 11721; 73600; 73630; 99213 ==

== ENCOUNTER 2024-03-02 08:16 | Oncology outpatient (recurring) (ONCR) | payer MEDICARE, OTHER, SELFPAY ==
[2024-03-02] MEDS: sodium chloride 0.9% 250 ML 75 ML IV (08:57)
[2024-03-02] MEDS: acetaminophen 325 mg Tablet 650 MG PO (08:58)
[2024-03-02] MEDS: methylPREDNISolone sod succ 40 mg/mL INJ IVP (08:59)
[2024-03-02] MEDS: diphenhydrAMINE 50 mg/mL SDV 1mL 25 MG IVP (09:04)
[2024-03-02 09:58] VITALS: BP 142/65; PULSE 64; RESP 17; TEMP 36; O2SAT 96
[2024-03-02] MEDS: infliximab-abda 800 MG in sodium chloride 0.9% 250 ML 10 MG IV (09:58)
[2024-03-02 10:13] VITALS: BP 134/74; PULSE 60; RESP 16; TEMP 35.9; O2SAT 98
[2024-03-02 10:30] VITALS: BP 141/75; PULSE 75; RESP 16; TEMP 35.9; O2SAT 95
[2024-03-02 10:45] VITALS: BP 129/75; PULSE 64; RESP 16; TEMP 36.1; O2SAT 95
[2024-03-02 11:03] VITALS: BP 147/57; PULSE 66; RESP 16; TEMP 35.9; O2SAT 95
[2024-03-02 11:34] VITALS: BP 133/69; PULSE 68; RESP 16; TEMP 36; O2SAT 93
== END 2024-03-30 23:59 | disposition home or self-care (01) ==
PROVIDERS: PCP Internal Medicine; Visit Provider Internal Medicine
DX: M06.042 Rheumatoid arthritis without rheumatoid factor, left hand (principal); M06.041 Rheumatoid arthritis without rheumatoid factor, right hand; Z79.899 Other long term (current) drug therapy
CPT/HCPCS: 96375; 96413; 96415; A4222; J1200; J2919; J7050; Q5104

== ENCOUNTER → 2024-03-16 08:37 | Outpatient (BNVA) | payer MEDICARE, OTHER, SELFPAY | PROVIDERS: PCP Internal Medicine; Referring Provider Internal Medicine; Visit Provider Nurse Practitioner Family | DX: L82.1 Other seborrheic keratosis (principal); L91.8 Other hypertrophic disorders of the skin; L81.4 Other melanin hyperpigmentation; T81.89XA Other complications of procedures, not elsewhere classified, initial encounter; X58.XXXA Exposure to other specified factors, initial encounter | CPT/HCPCS: 17110; 99204 ==

== ENCOUNTER → 2024-04-06 11:23 | Outpatient (BNVA) | payer MEDICARE, OTHER, SELFPAY | PROVIDERS: PCP Internal Medicine; Visit Provider Nurse Practitioner Family | DX: L98.8 Other specified disorders of the skin and subcutaneous tissue (principal); L81.4 Other melanin hyperpigmentation; D48.5 Neoplasm of uncertain behavior of skin; L30.9 Dermatitis, unspecified | CPT/HCPCS: 11104; 99213 ==

== ENCOUNTER 2024-04-12 08:29 | Oncology outpatient (recurring) (ONCR) | payer MEDICARE, OTHER, SELFPAY ==
[2024-04-12 08:40] VITALS: BP 175/66; PULSE 72; RESP 17; TEMP 36.8; O2SAT 95
[2024-04-12] MEDS: acetaminophen 325 mg Tablet 650 MG PO (09:03)
[2024-04-12] MEDS: diphenhydrAMINE 50 mg/mL SDV 1mL 25 MG IVP (09:05)
[2024-04-12] MEDS: methylPREDNISolone sod succ 40 mg/mL INJ IVP (09:10)
[2024-04-12 09:38] LABS: Basophils # 0.1 10^3/uL (0.0-0.1); Basophils % 0.5 %; Eosinophils # 0.4 10^3/uL (0.0-0.8); Hematocrit 30.8 % (36-47); Lymphocytes # 1.8 10^3/uL (0.8-4.8); Lymphocytes % 9.2 %; Mean Corpuscular HGB Conc 31.2 g/dL (30-55); Mean Corpuscular Hemoglobin 28.9 pg (27-33); Mean Corpuscular Volume 92.8 fl (85-98); Mean Platelet Volume 10.4 fL (7.4-10.4); Monocytes # 1.1 10^3/uL (0.2-0.9); Monocytes % 5.6 %; Neutrophils # 16.22 10^3/uL (1.8-7.7); Neutrophils % 81.4 %; Nucleated Red Blood Cells % 0 %; Platelet Count 438 10^3/cmm (157-399); Red Blood Count 3.32 10^6/uL (3.85-5.65); Red Cell Distribution Width 16.2 % (12.1-15.1); White Blood Count 19.92 10^3/uL (3.29-11.43)
[2024-04-12 09:43] LABS: Erythrocyte Sedimentation Rate 50 mm/hr (0-15)
[2024-04-12 09:56] LABS: Alanine Aminotransferase 11 U/L (0-33); Albumin Level 3.3 g/dL (3.5-5.2); Alkaline Phosphatase 135 U/L (35-105); Aspartate Amino Transferase 11 U/L (0-32); C Reactive Protein 140.1 mg/L (0.0-4.9); Creatinine Clr Calc Pharmacy 26.4256; Globulin 3.8 g/dL (1.3-4.6); Total Bilirubin 0.3 mg/dL (0.15-1.2); Total Protein 7.1 g/dL (6.6-8.7)
[2024-04-12] MEDS: infliximab-abda 800 MG in sodium chloride 0.9% 250 ML 300 MG IV (10:08)
[2024-04-12 12:51] LABS: Basophils # 0.1 10^3/uL (0.0-0.1); Basophils % 0.3 %; Eosinophils # 0.1 10^3/uL (0.0-0.8); Eosinophils % 0.4 %; Hematocrit 31.8 % (36-47); Lymphocytes # 0.7 10^3/uL (0.8-4.8); Lymphocytes % 3.6 %; Mean Corpuscular HGB Conc 30.2 g/dL (30-55); Mean Corpuscular Hemoglobin 27.8 pg (27-33); Mean Corpuscular Volume 92.2 fl (85-98); Mean Platelet Volume 10.1 fL (7.4-10.4); Monocytes # 0.5 10^3/uL (0.2-0.9); Monocytes % 2.2 %; Neutrophils % 91.9 %; Nucleated Red Blood Cells % 0 %; Platelet Count 432 10^3/cmm (157-399); Red Blood Count 3.45 10^6/uL (3.85-5.65); Red Cell Distribution Width 16.2 % (12.1-15.1); White Blood Count 20.55 10^3/uL (3.29-11.43)
[2024-04-12 12:59] LABS: LAB Peripheral Smear Sent for Review
[2024-04-12 13:06] LABS: Anion Gap 18.7 (5-19); Blood Urea Nitrogen 50 mg/dL (8-23); Carbon Dioxide 19 mmol/L (22-29); Chloride 102 mmol/L (98-107); Potassium 4.7 mmol/L (3.5-5.1); Sodium 135 mmol/L (136-145)
[2024-04-12 13:07] LABS: Alanine Aminotransferase 10 U/L (0-33); Albumin Level 3.4 g/dL (3.5-5.2); Alkaline Phosphatase 133 U/L (35-105); Aspartate Amino Transferase 11 U/L (0-32); Calcium 9.4 mg/dL (8.5-10.5); Creatinine Clr Calc Pharmacy 25.1673; Globulin 4.3 g/dL (1.3-4.6); Glucose 272 mg/dL (65-115); Lactate Dehydrogenase 190 U/L (135-214); Osmolality Calculated 303 mOsm/kg (285-295); Total Bilirubin 0.2 mg/dL (0.15-1.2); Total Protein 7.7 g/dL (6.6-8.7); Uric Acid 4.9 mg/dL (2.4-5.7)
[2024-04-13 13:55] LABS: Leukemia Profile (BBPL) See Report
== END 2024-04-29 23:59 | disposition home or self-care (01) ==
PROVIDERS: Internal Medicine Hematology & Oncology; Internal Medicine Rheumatology; PCP Internal Medicine; Visit Provider Internal Medicine
DX: M06.042 Rheumatoid arthritis without rheumatoid factor, left hand (principal); M06.041 Rheumatoid arthritis without rheumatoid factor, right hand; Z79.899 Other long term (current) drug therapy; D72.823 Leukemoid reaction; L02.211 Cutaneous abscess of abdominal wall
CPT/HCPCS: 36415; 80053; 80076; 80503; 82565; 83010; 83615; 84550; 85025; 85651; 86140; 88184; 88185; 99204; A4222; J1200; J2919; J7050; Q5104

== ENCOUNTER → 2024-04-21 08:03 | Outpatient (BNVA) | payer MEDICARE, OTHER, SELFPAY | PROVIDERS: PCP Internal Medicine; Visit Provider Nurse Practitioner Family | DX: L90.5 Scar conditions and fibrosis of skin (principal); L28.0 Lichen simplex chronicus; L44.8 Other specified papulosquamous disorders | CPT/HCPCS: 99213 ==

== ENCOUNTER → 2024-05-09 09:55 | Outpatient (BNVA) | payer MEDICARE, OTHER, SELFPAY | PROVIDERS: PCP Internal Medicine; Visit Provider Podiatrist Foot & Ankle Surgery | DX: E11.8 Type 2 diabetes mellitus with unspecified complications (principal); E11.42 Type 2 diabetes mellitus with diabetic polyneuropathy; L60.3 Nail dystrophy; M14.671 Charcot's joint, right ankle and foot; M25.571 Pain in right ankle and joints of right foot; G89.29 Other chronic pain; Z79.4 Long term (current) use of insulin | CPT/HCPCS: 11721 ==

== ENCOUNTER 2024-05-10 09:51 | Oncology outpatient (recurring) (ONCR) | payer MEDICARE, OTHER, SELFPAY ==
[2024-05-10 10:20] LABS: Basophils # 0.1 10^3/uL (0.0-0.1); Basophils % 0.4 %; Eosinophils # 0.5 10^3/uL (0.0-0.8); Hematocrit 32.8 % (36-47); Lymphocytes % 11.5 %; Mean Corpuscular HGB Conc 30.2 g/dL (30-55); Mean Corpuscular Hemoglobin 27.8 pg (27-33); Mean Corpuscular Volume 92.1 fl (85-98); Mean Platelet Volume 10.2 fL (7.4-10.4); Monocytes # 0.9 10^3/uL (0.2-0.9); Monocytes % 5.3 %; Neutrophils # 13.48 10^3/uL (1.8-7.7); Neutrophils % 78.4 %; Nucleated Red Blood Cells % 0 %; Platelet Count 460 10^3/cmm (157-399); Red Blood Count 3.56 10^6/uL (3.85-5.65); Red Cell Distribution Width 16.2 % (12.1-15.1); White Blood Count 17.19 10^3/uL (3.29-11.43)
[2024-05-10 10:22] LABS: Erythrocyte Sedimentation Rate 45 mm/hr (0-15)
[2024-05-10 10:37] LABS: Alanine Aminotransferase 9 U/L (0-33); Albumin Level 3.4 g/dL (3.5-5.2); Alkaline Phosphatase 111 U/L (35-105); Anion Gap 19.5 (5-19); Aspartate Amino Transferase 10 U/L (0-32); Blood Urea Nitrogen 55 mg/dL (8-23); Calcium 9.6 mg/dL (8.5-10.5); Carbon Dioxide 21 mmol/L (22-29); Chloride 104 mmol/L (98-107); Creatinine Clr Calc Pharmacy 28.0645; Globulin 4.7 g/dL (1.3-4.6); Glucose 139 mg/dL (65-115); Lactate Dehydrogenase 171 U/L (135-214); Osmolality Calculated 307 mOsm/kg (285-295); Potassium 4.5 mmol/L (3.5-5.1); Sodium 140 mmol/L (136-145); Total Bilirubin 0.2 mg/dL (0.15-1.2); Total Protein 8.1 g/dL (6.6-8.7)
[2024-05-10] MEDS: acetaminophen 325 mg Tablet 650 MG PO (11:28)
[2024-05-10] MEDS: sodium chloride 0.9% 250 ML 75 ML IV (11:28)
[2024-05-10] MEDS: diphenhydrAMINE 50 mg/mL SDV 1mL 25 MG IVP (11:29)
[2024-05-10] MEDS: methylPREDNISolone sod succ 40 mg/mL INJ IVP (11:32)
[2024-05-10] MEDS: infliximab-abda 800 MG in sodium chloride 0.9% 150 ML 250 MG IV (12:10)
[2024-05-10 13:22] VITALS: BP 163/70; PULSE 65; O2SAT 92
== END 2024-05-30 23:59 | disposition home or self-care (01) ==
PROVIDERS: Internal Medicine Hematology & Oncology; PCP Internal Medicine; Visit Provider Internal Medicine
DX: M06.042 Rheumatoid arthritis without rheumatoid factor, left hand (principal); M06.041 Rheumatoid arthritis without rheumatoid factor, right hand; Z79.899 Other long term (current) drug therapy; D72.823 Leukemoid reaction; L02.211 Cutaneous abscess of abdominal wall; E11.65 Type 2 diabetes mellitus with hyperglycemia; Z79.4 Long term (current) use of insulin; D64.9 Anemia, unspecified
CPT/HCPCS: 80053; 83010; 83615; 85025; 85651; 96375; 96413; 99214; A4222; J1200; J2919; J7050; Q5104

== ENCOUNTER 2024-06-13 09:07 | Oncology outpatient (recurring) (ONCR) | payer MEDICARE, OTHER, SELFPAY ==
[2024-06-13 09:27] VITALS: BP 123/60; PULSE 58; RESP 16; TEMP 36.2; O2SAT 95
[2024-06-13] MEDS: acetaminophen 325 mg Tablet 650 MG PO (09:50)
[2024-06-13] MEDS: sodium chloride 0.9% 250 ML 25 ML IV (09:50)
[2024-06-13] MEDS: diphenhydrAMINE 50 mg/mL SDV 1mL 25 MG IVP (09:50)
[2024-06-13] MEDS: methylPREDNISolone sod succ 40 mg/mL INJ IVP (10:00)
[2024-06-13] MEDS: infliximab-abda 800 MG in sodium chloride 0.9% 250 ML 300 MG IV (10:19)
[2024-06-13 11:29] VITALS: BP 113/62; PULSE 60; RESP 18; TEMP 36.6; O2SAT 95
== END 2024-06-30 23:59 | disposition home or self-care (01) ==
PROVIDERS: PCP Internal Medicine; Visit Provider Internal Medicine
DX: M06.042 Rheumatoid arthritis without rheumatoid factor, left hand (principal); M06.041 Rheumatoid arthritis without rheumatoid factor, right hand; Z79.620 Long term (current) use of immunosuppressive biologic
CPT/HCPCS: 96365; 96375; A4222; J1200; J2919; J7050; Q5104

== ENCOUNTER → 2024-06-22 09:26 | Outpatient (BNVA) | payer MEDICARE, OTHER, SELFPAY | PROVIDERS: PCP Internal Medicine; Visit Provider Internal Medicine Rheumatology | DX: M06.041 Rheumatoid arthritis without rheumatoid factor, right hand (principal); M06.042 Rheumatoid arthritis without rheumatoid factor, left hand; E11.610 Type 2 diabetes mellitus with diabetic neuropathic arthropathy; Z79.899 Other long term (current) drug therapy; Z71.89 Other specified counseling; M10.00 Idiopathic gout, unspecified site | CPT/HCPCS: 99214 ==

== ENCOUNTER 2024-07-25 08:46 | Oncology outpatient (recurring) (ONCR) | payer MEDICARE, OTHER, SELFPAY ==
[2024-07-25] MEDS: acetaminophen 325 mg Tablet 650 MG PO (10:28)
[2024-07-25] MEDS: diphenhydrAMINE 50 mg/mL SDV 1mL 25 MG IVP (10:28)
[2024-07-25 10:33] LABS: Basophils # 0.1 10^3/uL (0.0-0.1); Basophils % 0.4 %; Eosinophils # 0.5 10^3/uL (0.0-0.8); Eosinophils % 2.6 %; Hematocrit 30.5 % (36-47); Lymphocytes # 1.9 10^3/uL (0.8-4.8); Lymphocytes % 9.7 %; Mean Corpuscular HGB Conc 29.8 g/dL (30-55); Mean Corpuscular Hemoglobin 27.4 pg (27-33); Mean Corpuscular Volume 91.9 fl (85-98); Mean Platelet Volume 10.9 fL (7.4-10.4); Monocytes % 5.1 %; Neutrophils # 16.26 10^3/uL (1.8-7.7); Neutrophils % 81.2 %; Nucleated Red Blood Cells % 0 %; Platelet Count 472 10^3/cmm (157-399); Red Blood Count 3.32 10^6/uL (3.85-5.65); Red Cell Distribution Width 15.5 % (12.1-15.1); White Blood Count 19.98 10^3/uL (3.29-11.43)
[2024-07-25] MEDS: methylPREDNISolone sod succ 125 mg/2 mL INJ 40 MG IVP (10:35)
[2024-07-25 10:41] VITALS: BP 148/65; PULSE 64; RESP 17; TEMP 37.1; O2SAT 94
[2024-07-25 10:56] LABS: Erythrocyte Sedimentation Rate 42 mm/hr (0-15)
[2024-07-25 11:00] LABS: Alanine Aminotransferase 7 U/L (0-33); Albumin Level 3.3 g/dL (3.5-5.2); Alkaline Phosphatase 127 U/L (35-105); Anion Gap 18.3 (5-19); Aspartate Amino Transferase 11 U/L (0-32); Blood Urea Nitrogen 53 mg/dL (8-23); Calcium 9.4 mg/dL (8.5-10.5); Carbon Dioxide 23 mmol/L (22-29); Chloride 104 mmol/L (98-107); Creatinine Clr Calc Pharmacy 26.8571; Globulin 4.7 g/dL (1.3-4.6); Glucose 100 mg/dL (65-115); Osmolality Calculated 306 mOsm/kg (285-295); Potassium 4.3 mmol/L (3.5-5.1); Sodium 141 mmol/L (136-145); Thyroid Stimulating Hormone 2.21 uIU/mL (0.27-4.20); Total Bilirubin 0.2 mg/dL (0.15-1.2)
[2024-07-25] MEDS: infliximab-abda 800 MG in sodium chloride 0.9% 150 ML 150 MG IV (11:21)
[2024-07-25 12:00] LABS: Ferritin 769 ng/mL (15-150); Iron 29 ug/dL (37-145); Percent Saturation 15.4 % (20-50); Total Iron Binding Capacity 188 mcg/dl; Unsaturated Iron Binding 159 ug/dL (112-347)
[2024-07-25 12:16] LABS: Vitamin B12 953 pg/mL (232-1245)
[2024-07-25 13:00] VITALS: BP 156/65; PULSE 82; TEMP 36.8; O2SAT 92
[2024-07-26 06:20] LABS: PROTEIN, TOTAL 6.9 g/dL (6.1-8.1)
[2024-07-26 21:55] LABS: ALBUMIN 2.8 g/dL (3.8-4.8); ALPHA 1 GLOBULIN 0.5 g/dL (0.2-0.3); ALPHA 2 GLOBULIN 1.3 g/dL (0.5-0.9); BETA 1 GLOBULIN 0.5 g/dL (0.4-0.6); BETA 2 GLOBULIN 0.6 g/dL (0.2-0.5); GAMMA GLOBULIN 1.3 g/dL (0.8-1.7)
[2024-07-27 22:54] LABS: P190 BCR ALB1 NOT DETECTED; P190 BCR ALB1 Yes Test Yes; P210 BCR ALB1 NOT DETECTED; P210 BCR ALB1 Yes Test Yes; Prior Results NG; Source blood
[2024-07-29 13:04] LABS: Immunofixation Serum Normal pattern.
== END 2024-07-28 23:59 | disposition home or self-care (01) ==
PROVIDERS: Internal Medicine Medical Oncology; PCP Internal Medicine; Visit Provider Internal Medicine
DX: D72.823 Leukemoid reaction (principal); D50.9 Iron deficiency anemia, unspecified; M06.042 Rheumatoid arthritis without rheumatoid factor, left hand; M06.041 Rheumatoid arthritis without rheumatoid factor, right hand; E88.09 Other disorders of plasma-protein metabolism, not elsewhere classified; N28.9 Disorder of kidney and ureter, unspecified; Z79.899 Other long term (current) drug therapy
CPT/HCPCS: 80053; 81206; 81207; 82607; 82728; 83010; 83540; 83550; 84155; 84165; 84443; 85025; 85651; 86140; 86334; 86880; 96375; 96413; 96415; 99214; A4222; J1200; J2919; Q5104

== ENCOUNTER → 2024-08-08 09:54 | Outpatient (BNVA) | payer MEDICARE, OTHER, SELFPAY | PROVIDERS: PCP Internal Medicine; Visit Provider Podiatrist Foot & Ankle Surgery | DX: E11.8 Type 2 diabetes mellitus with unspecified complications (principal); E11.42 Type 2 diabetes mellitus with diabetic polyneuropathy; L60.3 Nail dystrophy; M14.671 Charcot's joint, right ankle and foot; M25.571 Pain in right ankle and joints of right foot; G89.29 Other chronic pain; Z79.4 Long term (current) use of insulin | CPT/HCPCS: 11721 ==

== ENCOUNTER 2024-08-22 09:08 | Oncology outpatient (recurring) (ONCR) | payer MEDICARE, OTHER, SELFPAY ==
[2024-08-22] MEDS: sodium chloride 0.9% 250 ML 75 ML IV (10:11)
[2024-08-22] MEDS: methylPREDNISolone sod succ 125 mg/2 mL INJ 40 MG IVP (10:15)
[2024-08-22] MEDS: acetaminophen 325 mg Tablet 650 MG PO (10:19)
[2024-08-22] MEDS: diphenhydrAMINE 50 mg/mL SDV 1mL 25 MG IVP (10:24)
[2024-08-22] MEDS: infliximab-abda 800 MG in sodium chloride 0.9% 150 ML 240 MG IV (11:00)
[2024-08-22 12:35] VITALS: BP 145/65; PULSE 62; RESP 17; TEMP 36.2; O2SAT 97
== END 2024-08-28 23:59 | disposition home or self-care (01) ==
PROVIDERS: PCP Internal Medicine; Visit Provider Internal Medicine
DX: M06.042 Rheumatoid arthritis without rheumatoid factor, left hand (principal); M06.041 Rheumatoid arthritis without rheumatoid factor, right hand; Z79.899 Other long term (current) drug therapy
CPT/HCPCS: 96375; 96413; J1200; J2919; J7050; J9999; Q5104

== ENCOUNTER 2024-09-05 11:58 | Outpatient (CLI) | payer MEDICARE, OTHER, SELFPAY ==
--- NOTE | 2024-09-05 12:00 | MM_ITS ---
WS: [email or web address] BILATERAL 3D TOMOSYNTHESIS DIGITAL SCREENING MAMMOGRAPHY WITH CAD CLINICAL INFORMATION: SCREENING HISTORY: Screening mammogram. No current complaints. COMPARISON: 2022 TECHNIQUE: Bilateral CC and MLO views. FINDINGS: Scattered fibroglandular densities bilaterally. No suspicious focal mass, asymmetry, calcifications, or architectural distortion. No evidence of malignancy. Incidental punctate and lucent centered calcifications. Vascular calcifications. MM/MM scr tomosynthesis [id number] IMPRESSION: DENSITY: There are scattered areas of fibroglandular density. BI-RADS: 2 - Benign. FOLLOW UP: 1 Year Follow-up Recommend return to annual screening mammography.
== END 2024-09-05 11:59 | disposition home or self-care (01) ==
PROVIDERS: PCP Internal Medicine; Visit Provider Internal Medicine
DX: Z12.31 Encounter for screening mammogram for malignant neoplasm of breast (principal); R92.323 Mammographic fibroglandular density, bilateral breasts; R92.1 Mammographic calcification found on diagnostic imaging of breast
CPT/HCPCS: 77063; 77067

== ENCOUNTER 2024-09-19 09:16 | Oncology outpatient (recurring) (ONCR) | payer MEDICARE, OTHER, SELFPAY ==
[2024-09-19 09:30] VITALS: BP 128/63; PULSE 62; RESP 17; TEMP 36.6; O2SAT 92
[2024-09-19] MEDS: sodium chloride 0.9% 250 ML 75 ML IV (09:50)
[2024-09-19] MEDS: acetaminophen 325 mg Tablet 650 MG PO (09:51)
[2024-09-19] MEDS: diphenhydrAMINE 50 mg/mL SDV 1mL 25 MG IVP (09:52)
[2024-09-19] MEDS: methylPREDNISolone sod succ 125 mg/2 mL INJ 40 MG IVP (09:53)
[2024-09-19 10:28] LABS: Basophils # 0.1 10^3/uL (0.0-0.1); Basophils % 0.4 %; Eosinophils # 0.6 10^3/uL (0.0-0.8); Eosinophils % 3.1 %; Hematocrit 27.2 % (36-47); Lymphocytes # 1.8 10^3/uL (0.8-4.8); Lymphocytes % 9.2 %; Mean Corpuscular HGB Conc 30.5 g/dL (30-55); Mean Corpuscular Hemoglobin 27.9 pg (27-33); Mean Corpuscular Volume 91.3 fl (85-98); Mean Platelet Volume 10.9 fL (7.4-10.4); Monocytes # 1.1 10^3/uL (0.2-0.9); Monocytes % 5.6 %; Neutrophils # 15.51 10^3/uL (1.8-7.7); Nucleated Red Blood Cells % 0 %; Platelet Count 346 10^3/cmm (157-399); Red Blood Count 2.98 10^6/uL (3.85-5.65); Red Cell Distribution Width 15.9 % (12.1-15.1); White Blood Count 19.16 10^3/uL (3.29-11.43)
[2024-09-19] MEDS: infliximab-abda 800 MG in sodium chloride 0.9% 150 ML 150 MG IV (10:43)
[2024-09-19 10:52] LABS: Alanine Aminotransferase 7 U/L (0-33); Albumin Level 3.3 g/dL (3.5-5.2); Alkaline Phosphatase 103 U/L (35-105); Aspartate Amino Transferase 8 U/L (0-32); C Reactive Protein 57.2 mg/L (0.0-4.9); Creatinine Clr Calc Pharmacy 23.6665; Globulin 3.8 g/dL (1.3-4.6); Total Bilirubin 0.3 mg/dL (0.15-1.2); Total Protein 7.1 g/dL (6.6-8.7)
[2024-09-19 11:12] LABS: Erythrocyte Sedimentation Rate 41 mm/hr (0-15)
[2024-09-19 13:40] VITALS: BP 147/71; PULSE 90; RESP 18; TEMP 36.6; O2SAT 93
== END 2024-09-27 23:59 | disposition home or self-care (01) ==
PROVIDERS: Internal Medicine Rheumatology; PCP Internal Medicine; Visit Provider Internal Medicine
DX: M06.042 Rheumatoid arthritis without rheumatoid factor, left hand (principal); M06.041 Rheumatoid arthritis without rheumatoid factor, right hand; Z79.899 Other long term (current) drug therapy
CPT/HCPCS: 80076; 82565; 85025; 85651; 86140; 96365; 96375; A4222; J1200; J2919; J7050; J9999; Q5104

== ENCOUNTER 2024-10-17 09:39 | Oncology outpatient (recurring) (ONCR) | payer MEDICARE, OTHER, SELFPAY ==
[2024-10-17 09:59] VITALS: BP 150/71; PULSE 71; RESP 18; TEMP 36.7; O2SAT 100
[2024-10-17] MEDS: acetaminophen 325 mg Tablet 650 MG PO (09:59)
[2024-10-17] MEDS: sodium chloride 0.9% 250 ML 75 ML IV (10:00)
[2024-10-17] MEDS: diphenhydrAMINE 50 mg/mL SDV 1mL 25 MG IVP (10:00)
[2024-10-17] MEDS: methylPREDNISolone sod succ 125 mg/2 mL INJ 40 MG IVP (10:03)
[2024-10-17] MEDS: infliximab-abda 800 MG in sodium chloride 0.9% 150 ML 150 MG IV (10:27)
[2024-10-17 12:17] VITALS: BP 128/68; PULSE 87; RESP 17; TEMP 36.3; O2SAT 92
== END 2024-10-28 23:59 | disposition home or self-care (01) ==
PROVIDERS: PCP Internal Medicine; Visit Provider Internal Medicine
DX: M06.042 Rheumatoid arthritis without rheumatoid factor, left hand (principal); M06.041 Rheumatoid arthritis without rheumatoid factor, right hand; Z79.899 Other long term (current) drug therapy
CPT/HCPCS: 96374; 96375; 96413; 96415; A4222; J1200; J2919; J7050; J9999; Q5104

== ENCOUNTER → 2024-11-07 09:48 | Outpatient (BNVA) | payer MEDICARE, OTHER, SELFPAY | PROVIDERS: PCP Internal Medicine; Visit Provider Podiatrist Foot & Ankle Surgery | DX: E11.42 Type 2 diabetes mellitus with diabetic polyneuropathy (principal); L60.3 Nail dystrophy; E11.8 Type 2 diabetes mellitus with unspecified complications; M14.671 Charcot's joint, right ankle and foot; M25.571 Pain in right ankle and joints of right foot; G89.29 Other chronic pain; Z79.4 Long term (current) use of insulin | CPT/HCPCS: 11721 ==

== ENCOUNTER 2024-11-14 09:33 | Oncology outpatient (recurring) (ONCR) | payer MEDICARE, OTHER, SELFPAY ==
[2024-11-14 10:02] VITALS: BP 125/53; PULSE 65; TEMP 36.7; O2SAT 93
[2024-11-14 10:34] LABS: Basophils # 0.1 10^3/uL (0.0-0.1); Basophils % 0.4 %; Eosinophils # 0.5 10^3/uL (0.0-0.8); Eosinophils % 3.7 %; Hematocrit 27.8 % (36-47); Lymphocytes # 1.4 10^3/uL (0.8-4.8); Lymphocytes % 10.3 %; Mean Corpuscular HGB Conc 29.9 g/dL (30-55); Mean Corpuscular Hemoglobin 27.2 pg (27-33); Mean Corpuscular Volume 91.1 fl (85-98); Mean Platelet Volume 10.5 fL (7.4-10.4); Monocytes % 7.2 %; Neutrophils # 10.86 10^3/uL (1.8-7.7); Neutrophils % 77.8 %; Nucleated Red Blood Cells % 0 %; Platelet Count 380 10^3/cmm (157-399); Red Blood Count 3.05 10^6/uL (3.85-5.65); Red Cell Distribution Width 15.9 % (12.1-15.1); White Blood Count 13.96 10^3/uL (3.29-11.43)
[2024-11-14] MEDS: sodium chloride 0.9% 250 ML 75 ML IV (10:37)
[2024-11-14] MEDS: methylPREDNISolone sod succ 125 mg/2 mL INJ 40 MG IVP (10:38)
[2024-11-14] MEDS: acetaminophen 325 mg Tablet 650 MG PO (10:41)
[2024-11-14] MEDS: diphenhydrAMINE 50 mg/mL SDV 1mL 25 MG IVP (10:42)
[2024-11-14 11:04] LABS: Alanine Aminotransferase 6 U/L (0-33); Albumin Level 3.3 g/dL (3.5-5.2); Alkaline Phosphatase 120 U/L (35-105); Aspartate Amino Transferase 7 U/L (0-32); Bilirubin Direct 0.14 mg/dL (0.00-0.30); C Reactive Protein 92.9 mg/L (0.0-4.9); Globulin 3.9 g/dL (1.3-4.6); Total Bilirubin 0.3 mg/dL (0.15-1.2); Total Protein 7.2 g/dL (6.6-8.7)
[2024-11-14] MEDS: infliximab-abda 800 MG in sodium chloride 0.9% 150 ML 230 MG IV (11:12)
[2024-11-14 12:10] LABS: Erythrocyte Sedimentation Rate 45 mm/hr (0-15)
[2024-11-14 12:40] VITALS: BP 142/78; PULSE 74; RESP 18; TEMP 36.6; O2SAT 94
== END 2024-11-27 23:59 | disposition home or self-care (01) ==
PROVIDERS: Internal Medicine Rheumatology; PCP Internal Medicine; Visit Provider Internal Medicine
DX: M06.042 Rheumatoid arthritis without rheumatoid factor, left hand (principal); M06.041 Rheumatoid arthritis without rheumatoid factor, right hand; Z79.899 Other long term (current) drug therapy
CPT/HCPCS: 80076; 82565; 85025; 85651; 86140; 96375; 96413; J1200; J2919; J7050; J9999; Q5104

== ENCOUNTER 2024-12-20 16:57 | Inpatient (IN) | payer MEDICARE, OTHER, SELFPAY ==
--- OUTSIDE RECORDS SUMMARY | 2003-05-30 19:00 | XMS_ITS | Continuity of Care Document ---
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 Unavailable Unavailable Allergies, Adverse Reactions, Alerts Substance Category Reaction Severity Reaction type Status Date Reported Comments Source naproxen Assertion Drug allergy Active [facility] penicillin Assertion Drug allergy Active [facility] morphine Assertion Drug allergy Active [facility] diclofenac Assertion Drug allergy Active [facility] Unlisted Substance - See Comment<sup >1</sup> Assertion Allergy to substance Active hemopathic products [facility] sulfa drugs Assertion Drug allergy Active [facility] Latex Assertion Allergy to substance Active [facility]
--- OUTSIDE RECORDS SUMMARY | 2003-05-30 19:00 | XMS_ITS | Continuity of Care Document ---
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 Phone [facility] Unavailable Unavailable Allergies, Adverse Reactions, Alerts Substance Category Reaction Severity Reaction type Status Date Reported Comments Source naproxen Assertion Drug allergy Active [facility] penicillin Assertion Drug allergy Active [facility] morphine Assertion Drug allergy Active [facility] diclofenac Assertion Drug allergy Active [facility] Unlisted Substance - See Comment<sup >1</sup> Assertion Allergy to substance Active hemopathic products [facility] sulfa drugs Assertion Drug allergy Active [facility] Latex Assertion Allergy to substance Active [facility]
[2024-12-20] VITALS (10 sets, daily range): BP systolic 99–142; BP diastolic 52–76; PULSE 64–71; RESP 15–21; O2SAT 91–95; BMI 34.9
--- NOTE | 2024-12-20 17:04 | ECG_ITS ---
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 Measurements Intervals [place] Rate: 64 P: 83 MO: 230 QRS: 65 QRSD: 118 T: 162 QT: 394 QTc: 407 Interpretive Statements SINUS RHYTHM WITH FIRST DEGREE AV BLOCK POSSIBLE INFERIOR MYOCARDIAL INFARCTION , PROBABLY OLD [30 ms Q WAVE IN II/aVF] MODERATE T-WAVE ABNORMALITY, CONSIDER LATERAL ISCHEMIA [-0.1+ mV T-WAVE IN I/aVL/V5/V6] Compared to ECG 03/31/2020 22:10:03 First degree AV block now present Myocardial infarct finding now present Possible ischemia now present Atrial fibrillation no longer present T-wave abnormality still present Electronically Signed On 12-21-2024 09:02:23 CDT by Karlo Hughes M.D. [email or web address]
--- NOTE | 2024-12-20 17:04 | XRR_ITS ---
PROCEDURE INFORMATION: Exam: XR Chest Exam date and time: 12/20/2024 5:11 PM Age: 79 years old Clinical indication: Pain; Angina pectoris; Additional info: Chest pain TECHNIQUE: Imaging protocol: Radiologic exam of the chest. Views: 1 view. COMPARISON: CR XR chest 2V* [id number] 12/04/2021 10:53 AM FINDINGS: Lungs: Unremarkable. No consolidation. Pleural spaces: Unremarkable. No pleural effusion. No pneumothorax. Heart/Mediastinum: Unremarkable. No cardiomegaly. Bones/joints: Unremarkable. XR/XR chest 1V portable [id number] IMPRESSION: No acute findings.
--- NOTE | 2024-12-20 17:12 | W.ED.SOB ---
Documented by User: Leandro Walter, DO 12/22/24 00:52 HPI - SOB/Dyspnea General: Chief Complaint: ER Hold Stated Complaint: SOB, Chest Pressure Time Seen by Provider: 12/20/24 17:03 History of Present Illness: HPI Narrative: 79-year-old female presents emergency room complaining of shortness of breath the last 2 weeks worsening today. She has had some chest pressure she is found to be 80% on arrival via ambulance. She is on 2 L by nasal cannula now. No known history of coronary disease she is diabetic. She has several rheumatologic disorders including rheumatoid and chronic gout. She did take some steroids yesterday she states her white count is chronically elevated due to medications that she takes through the rheumatology clinic. Says a moderately productive cough. Associated symptoms: Reports chest congestion, chest pain (Chest pressure) and orthopnea; Deny abdominal pain or fever(s) Related Data Home Medications ?Medication ?Instructions ?Recorded ?Confirmed diclofenac sodium 1 % topical gel 2 - 4 gm topical BID PRN UNKNOWN 08/31/19 11/07/24 (Voltaren) duloxetine 60 mg capsule,delayed 60 mg PO DAILY 08/31/19 11/07/24 release (Cymbalta) pravastatin 20 mg tablet 20 mg PO DAILY 08/31/19 11/07/24 Vitamin B-2 1 tab PO DAILY 03/31/20 11/07/24 aspirin 81 mg tablet,delayed 81 mg PO DAILY PRN UNKNOWN 03/31/20 11/07/24 release metoprolol tartrate 50 mg tablet 50 mg PO BID 03/31/20 11/07/24 turmeric 1 tab PO DAILY 03/31/20 11/07/24 gabapentin 300 mg capsule 300 mg PO TID 01/07/22 11/07/24 hydrocodone bitartrate PO 01/07/22 11/07/24 infliximab-abda 100 mg intravenous IV 08/19/22 11/07/24 solution (Renflexis) clobetasol 0.05 % topical cream topical 04/12/24 11/07/24 tizanidine 4 mg tablet mg PO 04/12/24 11/07/24 amlodipine 10 mg tablet mg PO 07/25/24 11/07/24 empagliflozin 10 mg tablet mg PO 07/25/24 11/07/24 (Jardiance) insulin aspart SUBCUT 07/25/24 11/07/24 (niacinamide)(U-100) 100 unit/mL(3 mL) subcutaneous pen (Fiasp FlexTouch U-100 Insulin) Previous Rx's ?Medication ?Instructions ?Recorded insulin degludec 100 unit/mL (3 60 unit (0.6 mL) SUBCUT DAILY #0 mL 04/04/ mL) subcutaneous pen (Tresiba FlexTouch U-100 insulin) AFO to right #1 ea 06/17/22 promethazine-DM 6.25 mg-15 mg/5 mL 5 - 10 ml PO Q6H PRN cough #200 mL 03/11/23 oral syrup albuterol sulfate 2.5 mg/3 mL 2.5 mg (3 mL) inhalation Q4H PRN 03/15/23 (0.083 %) solution for nebulization shortness of breath or wheezing #180 mL ipratropium 0.5 mg-albuterol 3 mg 3 ml inhalation QID PRN wheezing 03/15/23 (2.5 mg base)/3 mL nebulization #180 mL soln nebulizers #1 ea 05/21/23 mupirocin 2 % topical ointment 1 applic topical BID #22 grams 07/27/23 albuterol sulfate 90 mcg/actuation See Rx Instructions .Route 08/20/23 aerosol inhaler .COMPLEX #9 grams prednisone 5 mg tablet 5 mg PO DAILY PRN prn joint pain 06/22/24 flare #60 tabs allopurinol 100 mg tablet 100 mg PO BID #180 tabs 12/12/24 Allergies Allergy/AdvReac Type Severity Reaction Status Date / Time latex Allergy Mild rash Verified 11/07/24 09:49 Penicillins Allergy Mild rash Verified 11/07/24 09:49 Sulfa (Sulfonamide Allergy Mild rash Verified 11/07/24 09:49 Antibiotics) sulindac Allergy Mild rash Verified 11/07/24 09:49 doxycycline Allergy ADR-Itching Verified 11/07/24 09:49 naproxen Allergy rash Verified 11/07/24 09:49 Review of Systems Const: Denies: fever(s) or chills Card: Reports: chest pain (Chest pressure), swelling of feet/ankles, dyspnea on exertion and orthopnea Resp: Reports: dyspnea, productive cough, wheezing and chest congestion GI: Denies: abdominal pain : Denies: dysuria, urinary frequency or urinary urgency Musc: Denies: neck pain or back pain Skin/Breast: Denies: rash PFSH ED PFSH: Medical History Charcot foot due to diabetes mellitus Mass of right ankle Right ankle pain Coronary artery disease Chronic use of steroids Chronic anemia Dyslipidemia Atypical chest pain Seronegative rheumatoid arthritis of both hands Seronegative rheumatoid arthritis High risk medication use Immunization counseling Osteoarthritis Gout Surgical History Hx of total ankle replacement History of bilateral cataract extraction History of shoulder surgery History of hysterectomy History of arthroscopic knee surgery History of thumb surgery History of carpal tunnel surgery H/O total knee replacement History of laparoscopic cholecystectomy History of hip replacement Family History Sister CAD (coronary artery disease) Heart attack in her 50s and of the same. Mother Stroke Strong family history for CVA. Grandfather, mother, niece all had a CVA Other Asthma Diabetes Hypertension Denies family history of Lupus (systemic lupus erythematosus) Rheumatoid arthritis Social History Smoking and tobacco/nicotine status: never used tobacco/nicotine Alcohol intake: never Physical Exam Const: ORIENTATION/CONSCIOUSNESS: Yes awake, Yes oriented to person, Yes oriented to place and Yes oriented to time HENMT: COMMON NORMALS: normocephalic, atraumatic and hearing grossly normal bilaterally HEAD & SCALP: normocephalic and atraumatic Resp: AUSCULTATION: rhonchi ({) and wheezes (Left base) Cardio: COMMON NORMALS: regular rate, regular rhythm and No murmurs present (Cardio) RATE: regular rate RHYTHM: regular rhythm GI: COMMON NORMALS: Soft to palpation and No hepatosplenomegaly present AUSCULTATION: Yes normoactive bowel sounds PALPATION: Yes Soft to palpation, No Tenderness to palpation present (GI), No Guarding due to palpation present (GI) and Yes No hepatosplenomegaly present Extremity: COMMON NORMALS: normal to inspection, capillary refill normal, no clubbing, cyanosis or edema, no calf tenderness and no pedal edema Neuro: SENSORIUM/ORIENTATION: Yes oriented to person, Yes oriented to place and Yes oriented to time Skin: COMMON NORMALS: no rashes or lesions noted GENERAL SKIN EXAM: no rashes or lesions noted Course Vital Signs: Vital signs: Vital Signs Temperature 97.5 F L 12/21/24 08:00 Pulse Rate 88 12/22/24 00:08 Respiratory Rate 18 12/21/24 23:22 Blood Pressure 152/70 12/21/24 23:22 Pulse Oximetry 94 12/22/24 00:08 Oxygen Delivery Me thod CPAP 12/21/24 23:22 Oxygen Flow Rate 2.5 12/21/24 08:00 Fraction of Inspir ed Oxygen 35 12/22/24 00:08 MDM - SOB/Dyspnea Medical Decision Making Care signed out to Dr. Brown at change of shift. See final notes for diagnosis and disposition. Medical Records I reviewed the patient's medical records. Lab Data I reviewed the patient's lab results. 12/21/24 14:17 12/21/24 16:04 Labs/Radiology: Radiology Impressions Chest/Abdomen/Pelvis CT 12/20/24 23:07 IMPRESSION: 1. Small bilateral pleural effusions with atelectatic changes in the lung bases. 2. Multiple prominent mediastinal lymph nodes measuring up to 10 mm in short axis. 3. There is an irregular pulmonary nodule in the right upper lobe measuring 16 x 14 mm (series 5, image 18) and a subsolid nodule in the left upper lobe measuring up to 18 x 17 mm (series 5, image 24). While this may represent multifocal multi lobar pneumonia true pulmonary nodules can not be excluded and in the absence of a known primary malignancy the Fleischner IMPRESSION: 1. Cirrhotic liver. 2. No bowel obstruction or inflammatory process associated with the bowel. 3. No free air or significant free fluid in the abdomen or pelvis. 4. The appendix is not visualized but there are no secondary signs of acute appendicitis. Chest X-Ray 12/21/24 12:46 Impression: Satisfactory placement of right PICC line. Venous Duplex 12/21/24 23:07 IMPRESSION: No evidence of deep vein thrombosis in the bilateral lower extremities. Laboratory Results WBC 18.97 10^3/uL (3.29-11.43) H 12/21/24 04:17 RBC 2.85 10^6/uL (3.85-5.65) L 12/21/24 04:17 Hgb 7.70 g/dL (11.27-16.99) L 12/21/24 04:17 Hct 26.1 % (36-47) L 12/21/24 04:17 MCV 91.6 fl (85-98) 12/21/24 04:17 MCH 27.0 pg (27-33) 12/21/24 04:17 MCHC 29.5 g/dL (30-55) L 12/21/24 04:17 RDW 15.9 % (12.1-15.1) H 12/21/24 04:17 Plt Count 334 10^3/cmm (157-399) 12/21/24 04:17 MPV 10.7 fL (7.4-10.4) H 12/21/24 04:17 Neut % (Auto) 83.3 % 12/21/24 04:17 Lymph % (Auto) 8.0 % 12/21/24 04:17 [place] % (Auto) 7.2 % 12/21/24 04:17 Eos % (Auto) 0.5 % 12/21/24 04:17 Baso % (Auto) 0.3 % 12/21/24 04:17 Neut # (Auto) 15.82 10^3/uL (1.8-7.7) H 12/21/24 04:17 Lymph # (Auto) 1.5 10^3/uL (0.8-4.8) 12/21/24 04:17 [place] # (Auto) 1.4 10^3/uL (0.2-0.9) H 12/21/24 04:17 Eos # (Auto) 0.1 10^3/uL (0.0-0.8) 12/21/24 04:17 Baso # (Auto) 0.1 10^3/uL (0.0-0.1) 12/21/24 04:17 Nucleated RBC % (auto) 0 % 12/21/24 04:17 Nucleated RBCs # 0.0 /100WBC 12/21/24 04:17 D-Dimer 2.94 ug/mLFEU (0-0.59) H 12/20/24 23:43 Sodium 131 mmol/L (136-145) L 12/21/24 04:17 Potassium 4.4 mmol/L (3.5-5.1) 12/21/24 04:17 Chloride 95 mmol/L (98-107) L 12/21/24 04:17 Carbon Dioxide 18 mmol/L (22-29) L 12/21/24 04:17 Anion Gap 22.4 (5-19) H 12/21/24 04:17 BUN 73 mg/dL (8-23) H 12/21/24 04:17 Creatinine 3.7 mg/dL (0.5-0.9) H 12/21/24 04:17 GFR Calculation Not Reportable 12/21/24 04:17 Glucose 176 mg/dL (65-115) H 12/21/24 04:17 Estimat Average Glucose 134 12/20/24 23:43 Hemoglobin A1c 6.3 % (4.0-6.0) H 12/20/24 23:43 Calculated Osmolality 298 mOsm/kg (285-295) H 12/21/24 04:17 Calcium 8.9 mg/dL (8.5-10.5) 12/21/24 04:17 Iron 39 ug/dL (37-145) 12/21/24 04:17 Ferritin 500 ng/mL (15-150) H 12/21/24 04:17 Total Bilirubin 0.3 mg/dL (0.15-1.2) 12/21/24 04:17 AST 8 U/L (0-32) 12/21/24 04:17 ALT 7 U/L (0-33) 12/21/24 04:17 Alkaline Phosphatase 139 U/L (35-105) H 12/21/24 04:17 Troponin T Baseline 39 ng/L (0-10) H 12/20/24 17:13 Troponin T 120 Minute 39.96 ng/L (0-10) H 12/20/24 19:00 Delta Troponin T 0.96 ABS# (0-10) 12/20/24 19:00 Troponin T Hi Sens 6Hr 41.68 ng/L (0-10) H 12/20/24 23:43 Troponin T Hi Sens 6Hr Delta 2.68 ng/L (0-12) 12/20/24 23:43 C-Reactive Protein 78.8 mg/L (0.0-4.9) H 12/20/24 17:13 NT-Pro-B Natriuret Pep 28208 pg/mL (0-450) H 12/20/24 17:13 Total Protein 7.6 g/dL (6.6-8.7) 12/21/24 04:17 Albumin 3.4 g/dL (3.5-5.2) L 12/21/24 04:17 Globulin 4.2 g/dL (1.3-4.6) 12/21/24 04:17 TSH 2.58 uIU/mL (0.27-4.20) 12/21/24 04:17 Urine Color Yellow (Yellow) 12/20/24 19:35 Urine Appearance Cloudy (CLEAR) A 12/20/24 19:35 Urine pH 5.0 (5-7) 12/20/24 19:35 Ur Specific [place] 1.022 (1.005-1.030) 12/20/24 19:35 Urine Protein 3+ (Negative) A 12/20/24 19:35 Urine Glucose (UA) Negative (Normal) 12/20/24 19:35 Urine Ketones Trace (Negative) 12/20/24 19:35 Urine Blood Negative (Negative) 12/20/24 19:35 Urine Nitrate Negative (Negative) 12/20/24 19:35 Urine Bilirubin Negative (Negative) 12/20/24 19:35 Urine Urobilinogen 1.0 mg/dL (Negative) 12/20/24 19:35 Ur Leukocyte Esterase Negative (Negative) 12/20/24 19:35 Urine RBC 0-2 /hpf (0-2) 12/20/24 19:35 Urine WBC 6-10 /hpf (0-5) 12/20/24 19:35 Ur Squamous Epith Cells 11-20 /hpf (0-5) H 12/20/24 19:35 Amorphous Sediment Not Reportable 12/20/24 19:35 Urine Bacteria 3+ /hpf (NONE) H 12/20/24 19:35 Hyaline Casts 34.33 /lpf 12/20/24 19:35 Urine Opiates Screen Negative ng/mL (Negative) 12/20/24 19:35 Ur Barbiturates Screen Negative ng/mL (Negative) 12/20/24 19:35 Ur Phencyclidine Scrn Negative ng/mL (Negative) 12/20/24 19:35 Ur Amphetamines Screen Negative ng/mL (Negative) 12/20/24 19:35 U Benzodiazepines Scrn Negative ng/mL (Negative) 12/20/24 19:35 Urine Cocaine Screen Negative ng/mL (Negative) 12/20/24 19:35 U Marijuana (THC) Screen Negative ng/mL (Negative) 12/20/24 19:35 Adenovirus (PCR) Not detected (NOT DETECT) 12/21/24 01:43 C. pneumoniae DNA (PCR) Not detected (NOT DETECT) 12/21/24 01:43 Coronavirus 229E (PCR) Not detected (NOT DETECT) 12/21/24 01:43 Hepatitis A IgM Ab Non-reactive (Nonreactive) 12/20/24 23:43 Hep Bs Antigen Non-reactive (Nonreactive) 12/20/24 23:43 Hep Bs Antibody < 3.5 (11.5-1000) L 12/20/24 23:43 Hep B Core Total Ab Non-reactive (Nonreactive) 12/20/24 23:43 Hepatitis C Antibody Non-reactive (Nonreactive) 12/20/24 23:43 Human Metapneumovir PCR Not detected (NOT DETECT) 12/21/24 01:43 Influenza A (H1) PCR Not detected (NOT DETECT) 12/21/24 01:43 Influenza A (PCR) Negative (Negative) 12/20/24 17:54 Influ A (H1/09) PCR Not detected (NOT DETECT) 12/21/24 01:43 Influenza A (H3) PCR Not detected (NOT DETECT) 12/21/24 01:43 Influenza Type A (PCR) Not detected (NOT DETECT) 12/21/24 01:43 Influenza Type B (PCR) Not detected (NOT DETECT) 12/21/24 01:43 M. pneumoniae (PCR) Not detected (NOT DETECT) 12/21/24 01:43 Parainfluenza 1 (PCR) Not detected (NOT DETECT) 12/21/24 01:43 Parainfluenza 2 (PCR) Not detected (NOT DETECT) 12/21/24 01:43 Parainfluenza 3 (PCR) Not detected (NOT DETECT) 12/21/24 01:43 Parainfluenza 4 (PCR) Not detected (NOT DETECT) 12/21/24 01:43 RSV (PCR) Negative (Negative) 12/20/24 17:54 RSV Type A (PCR) Not detected (NOT DETECT) 12/21/24 01:43 RSV Type B (PCR) Not detected (NOT DETECT) 12/21/24 01:43 Entero/Rhino (PCR) Not detected (NOT DETECT) 12/21/24 01:43 SARS-CoV-2 (PCR) Not detected (NOT DETECT) 12/21/24 01:43 Discharge Plan Discharge Patient Disposition: Admitted As Inpatient Admit Provider: Christy Gunderson Clinical Impression: Congestive heart failure, Acute hypoxemic respiratory failure Condition: Stable Coding Level of Care Code ED Java 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 Architect for Chg Fwd Documented by User: Prosper Brown DO 12/20/24 21:58 HPI - SOB/Dyspnea General: Chief Complaint: ER Hold Stated Complaint: SOB, Chest Pressure Time Seen by Provider: 12/20/24 17:03 Related Data Home Medications ?Medication ?Instructions ?Recorded ?Confirmed diclofenac sodium 1 % topical gel 2 - 4 gm topical BID PRN UNKNOWN 08/31/19 11/07/24 (Voltaren) duloxetine 60 mg capsule,delayed 60 mg PO DAILY 08/31/19 11/07/24 release (Cymbalta) pravastatin 20 mg tablet 20 mg PO DAILY 08/31/19 11/07/24 Vitamin B-2 1 tab PO DAILY 03/31/20 11/07/24 aspirin 81 mg tablet,delayed 81 mg PO DAILY PRN UNKNOWN 03/31/20 11/07/24 release metoprolol tartrate 50 mg tablet 50 mg PO BID 03/31/20 11/07/24 turmeric 1 tab PO DAILY 03/31/20 11/07/24 gabapentin 300 mg capsule 300 mg PO TID 01/07/22 11/07/24 hydrocodone bitartrate PO 01/07/22 11/07/24 infliximab-abda 100 mg intravenous IV 08/19/22 11/07/24 solution (Renflexis) clobetasol 0.05 % topical cream topical 04/12/24 11/07/24 tizanidine 4 mg tablet mg PO 04/12/24 11/07/24 amlodipine 10 mg tablet mg PO 07/25/24 11/07/24 empagliflozin 10 mg tablet mg PO 07/25/24 11/07/24 (Jardiance) insulin aspart SUBCUT 07/25/24 11/07/24 (niacinamide)(U-100) 100 unit/mL(3 mL) subcutaneous pen (Fiasp FlexTouch U-100 Insulin) Previous Rx's ?Medication ?Instructions ?Recorded insulin degludec 100 unit/mL (3 60 unit (0.6 mL) SUBCUT DAILY #0 mL 04/04/20 mL) subcutaneous pen (Tresiba FlexTouch U-100 insulin) AFO to right #1 ea 06/17/22 promethazine-DM 6.25 mg-15 mg/5 mL 5 - 10 ml PO Q6H PRN cough #200 mL 03/11/23 oral syrup albuterol sulfate 2.5 mg/3 mL 2.5 mg (3 mL) inhalation Q4H PRN 03/15/23 (0.083 %) solution for nebulization shortness of breath or wheezing #180 mL ipratropium 0.5 mg-albuterol 3 mg 3 ml inhalation QID PRN wheezing 03/15/23 (2.5 mg base)/3 mL nebulization #180 mL soln nebulizers #1 ea 05/21/23 mupirocin 2 % topical ointment 1 applic topical BID #22 grams 07/27/23 albuterol sulfate 90 mcg/actuation See Rx Instructions .Route 08/20/23 aerosol inhaler .COMPLEX #9 grams prednisone 5 mg tablet 5 mg PO DAILY PRN prn joint pain 06/22/24 flare #60 tabs allopurinol 100 mg tablet 100 mg PO BID #180 tabs 12/12/24 Allergies Allergy/AdvReac Type Severity Reaction Status Date / Time latex Allergy Mild rash Verified 11/07/24 09:49 Penicillins Allergy Mild rash Verified 11/07/24 09:49 Sulfa (Sulfonamide Allergy Mild rash Verified 11/07/24 09:49 Antibiotics) sulindac Allergy Mild rash Verified 11/07/24 09:49 doxycycline Allergy ADR-Itching Verified 11/07/24 09:49 naproxen Allergy rash Verified 11/07/24 09:49 [facility]LY [facility] ED PFS: Medical History Charcot foot due to diabetes mellitus Mass of right ankle Right ankle pain Coronary artery disease Chronic use of steroids Chronic anemia Dyslipidemia Atypical chest pain Seronegative rheumatoid arthritis of both hands Seronegative rheumatoid arthritis High risk medication use Immunization counseling Osteoarthritis Gout Surgical History Hx of total ankle replacement History of bilateral cataract extraction History of shoulder surgery History of hysterectomy History of arthroscopic knee surgery History of thumb surgery History of carpal tunnel surgery H/O total knee replacement History of laparoscopic cholecystectomy History of hip replacement Family History Sister CAD (coronary artery disease) Heart attack in her 50s and of the same. Mother Stroke Strong family history for CVA. Grandfather, mother, niece all had a CVA Other Asthma Diabetes Hypertension Denies family history of Lupus (systemic lupus erythematosus) Rheumatoid arthritis Social History Smoking and tobacco/nicotine status: never used tobacco/nicotine Alcohol intake: never Course Vital Signs: Vital signs: Vital Signs Temperature 97.5 F L 12/21/24 08:00 Pulse Rate 88 12/22/24 00:08 Respiratory Rate 18 12/21/24 23:22 Blood Pressure 152/70 12/21/24 23:22 Pulse Oximetry 94 12/22/24 00:08 Oxygen Delivery Me thod CPAP 12/21/24 23:22 Oxygen Flow Rate 2.5 12/21/24 08:00 Fraction of Inspir ed Oxygen 35 12/22/24 00:08 MDM - SOB/Dyspnea Medical Decision Making Care signed out to Dr. Brown at change of shift. See final notes for diagnosis and disposition. I assumed care of the above-named 79-year-old patient whose had shortness of breath that was a little bit worse today when I interviewed her further she actually says that it has been a little over 2 weeks more like several months even that she has been experiencing this worse on exertion she does sleep with the head of her bed elevated. The patient does have Lasix or furosemide but does not know that she has a diagnosis of heart failure. Her BNP was significantly elevated I tried to turn the oxygen off but she did have desaturations down into the mid to high 80s. When replaced back on the oxygen she popped back up nicely she has 4+ pitting edema in her lower extremities. She has acute on chronic heart failure and has a poor social situation she is still requiring oxygen, talk to the hospitalist about admitting her. Discussed case with hospitalist who is agreeable to admitting. Bridge orders were placed. Lab Data 12/21/24 14:17 12/21/24 16:04 Labs/Radiology: Radiology Impressions Chest/Abdomen/Pelvis CT 12/20/24 23:07 IMPRESSION: 1. Small bilateral pleural effusions with atelectatic changes in the lung bases. 2. Multiple prominent mediastinal lymph nodes measuring up to 10 mm in short axis. 3. There is an irregular pulmonary nodule in the right upper lobe measuring 16 x 14 mm (series 5, image 18) and a subsolid nodule in the left upper lobe measuring up to 18 x 17 mm (series 5, image 24). While this may represent multifocal multi lobar pneumonia true pulmonary nodules can not be excluded and in the absence of a known primary malignancy the Fleischner IMPRESSION: 1. Cirrhotic liver. 2. No bowel obstruction or inflammatory process associated with the bowel. 3. No free air or significant free fluid in the abdomen or pelvis. 4. The appendix is not visualized but there are no secondary signs of acute appendicitis. Chest X-Ray 12/21/24 12:46 Impression: Satisfactory placement of right PICC line. Venous Duplex 12/21/24 23:07 IMPRESSION: No evidence of deep vein thrombosis in the bilateral lower extremities. Laboratory Results WBC 18.97 10^3/uL (3.29-11.43) H 12/21/24 04:17 RBC 2.85 10^6/uL (3.85-5.65) L 12/21/24 04:17 Hgb 7.70 g/dL (11.27-16.99) L 12/21/24 04:17 Hct 26.1 % (36-47) L 12/21/24 04:17 MCV 91.6 fl (85-98) 12/21/24 04:17 MCH 27.0 pg (27-33) 12/21/24 04:17 MCHC 29.5 g/dL (30-55) L 12/21/24 04:17 RDW 15.9 % (12.1-15.1) H 12/21/24 04:17 Plt Count 334 10^3/cmm (157-399) 12/21/24 04:17 MPV 10.7 fL (7.4-10.4) H 12/21/24 04:17 Neut % (Auto) 83.3 % 12/21/24 04:17 Lymph % (Auto) 8.0 % 12/21/24 04:17 [place] % (Auto) 7.2 % 12/21/24 04:17 Eos % (Auto) 0.5 % 12/21/24 04:17 Baso % (Auto) 0.3 % 12/21/24 04:17 Neut # (Auto) 15.82 10^3/uL (1.8-7.7) H 12/21/24 04:17 Lymph # (Auto) 1.5 10^3/uL (0.8-4.8) 12/21/24 04:17 [place] # (Auto) 1.4 10^3/uL (0.2-0.9) H 12/21/24 04:17 Eos # (Auto) 0.1 10^3/uL (0.0-0.8) 12/21/24 04:17 Baso # (Auto) 0.1 10^3/uL (0.0-0.1) 12/21/24 04:17 Nucleated RBC % (auto) 0 % 12/21/24 04:17 Nucleated RBCs # 0.0 /100WBC 12/21/24 04:17 D-Dimer 2.94 ug/mLFEU (0-0.59) H 12/20/24 23:43 Sodium 131 mmol/L (136-145) L 12/21/24 04:17 Potassium 4.4 mmol/L (3.5-5.1) 12/21/24 04:17 Chloride 95 mmol/L (98-107) L 12/21/24 04:17 Carbon Dioxide 18 mmol/L (22-29) L 12/21/24 04:17 Anion Gap 22.4 (5-19) H 12/21/24 04:17 BUN 73 mg/dL (8-23) H 12/21/24 04:17 Creatinine 3.7 mg/dL (0.5-0.9) H 12/21/24 04:17 GFR Calculation Not Reportable 12/21/24 04:17 Glucose 176 mg/dL (65-115) H 12/21/24 04:17 Estimat Average Glucose 134 12/20/24 23:43 Hemoglobin A1c 6.3 % (4.0-6.0) H 12/20/24 23:43 Calculated Osmolality 298 mOsm/kg (285-295) H 12/21/24 04:17 Calcium 8.9 mg/dL (8.5-10.5) 12/21/24 04:17 Iron 39 ug/dL (37-145) 12/21/24 04:17 Ferritin 500 ng/mL (15-150) H 12/21/24 04:17 Total Bilirubin 0.3 mg/dL (0.15-1.2) 12/21/24 04:17 AST 8 U/L (0-32) 12/21/24 04:17 ALT 7 U/L (0-33) 12/21/24 04:17 Alkaline Phosphatase 139 U/L (35-105) H 12/21/24 04:17 Troponin T Baseline 39 ng/L (0-10) H 12/20/24 17:13 Troponin T 120 Minute 39.96 ng/L (0-10) H 12/20/24 19:00 Delta Troponin T 0.96 ABS# (0-10) 12/20/24 19:00 Troponin T Hi Sens 6Hr 41.68 ng/L (0-10) H 12/20/24 23:43 Troponin T Hi Sens 6Hr Delta 2.68 ng/L (0-12) 12/20/24 23:43 C-Reactive Protein 78.8 mg/L (0.0-4.9) H 12/20/24 17:13 NT-Pro-B Natriuret Pep 45667 pg/mL (0-450) H 12/20/24 17:13 Total Protein 7.6 g/dL (6.6-8.7) 12/21/24 04:17 Albumin 3.4 g/dL (3.5-5.2) L 12/21/24 04:17 Globulin 4.2 g/dL (1.3-4.6) 12/21/24 04:17 TSH 2.58 uIU/mL (0.27-4.20) 12/21/24 04:17 Urine Color Yellow (Yellow) 12/20/24 19:35 Urine Appearance Cloudy (CLEAR) A 12/20/24 19:35 Urine pH 5.0 (5-7) 12/20/24 19:35 Ur Specific [place] 1.022 (1.005-1.030) 12/20/24 19:35 Urine Protein 3+ (Negative) A 12/20/24 19:35 Urine Glucose (UA) Negative (Normal) 12/20/24 19:35 Urine Ketones Trace (Negative) 12/20/24 19:35 Urine Blood Negative (Negative) 12/20/24 19:35 Urine Nitrate Negative (Negative) 12/20/24 19:35 Urine Bilirubin Negative (Negative) 12/20/24 19:35 Urine Urobilinogen 1.0 mg/dL (Negative) 12/20/24 19:35 Ur Leukocyte Esterase Negative (Negative) 12/20/24 19:35 Urine RBC 0-2 /hpf (0-2) 12/20/24 19:35 Urine WBC 6-10 /hpf (0-5) 12/20/24 19:35 Ur Squamous Epith Cells 11-20 /hpf (0-5) H 12/20/24 19:35 Amorphous Sediment Not Reportable 12/20/24 19:35 Urine Bacteria 3+ /hpf (NONE) H 12/20/24 19:35 Hyaline Casts 34.33 /lpf 12/20/24 19:35 Urine Opiates Screen Negative ng/mL (Negative) 12/20/24 19:35 Ur Barbiturates Screen Negative ng/mL (Negative) 12/20/24 19:35 Ur Phencyclidine Scrn Negative ng/mL (Negative) 12/20/24 19:35 Ur Amphetamines Screen Negative ng/mL (Negative) 12/20/24 19:35 U Benzodiazepines Scrn Negative ng/mL (Negative) 12/20/24 19:35 Urine Cocaine Screen Negative ng/mL (Negative) 12/20/24 19:35 U Marijuana (THC) Screen Negative ng/mL (Negative) 12/20/24 19:35 Adenovirus (PCR) Not detected (NOT DETECT) 12/21/24 01:43 C. pneumoniae DNA (PCR) Not detected (NOT DETECT) 12/21/24 01:43 Coronavirus 229E (PCR) Not detected (NOT DETECT) 12/21/24 01:43 Hepatitis A IgM Ab Non-reactive (Nonreactive) 12/20/24 23:43 Hep Bs Antigen Non-reactive (Nonreactive) 12/20/24 23:43 Hep Bs Antibody < 3.5 (11.5-1000) L 12/20/24 23:43 Hep B Core Total Ab Non-reactive (Nonreactive) 12/20/24 23:43 Hepatitis C Antibody Non-reactive (Nonreactive) 12/20/24 23:43 Human Metapneumovir PCR Not detected (NOT DETECT) 12/21/24 01:43 Influenza A (H1) PCR Not detected (NOT DETECT) 12/21/24 01:43 Influenza A (PCR) Negative (Negative) 12/20/24 17:54 Influ A (H1/09) PCR Not detected (NOT DETECT) 12/21/24 01:43 Influenza A (H3) PCR Not detected (NOT DETECT) 12/21/24 01:43 Influenza Type A (PCR) Not detected (NOT DETECT) 12/21/24 01:43 Influenza Type B (PCR) Not detected (NOT DETECT) 12/21/24 01:43 M. pneumoniae (PCR) Not detected (NOT DETECT) 12/21/24 01:43 Parainfluenza 1 (PCR) Not detected (NOT DETECT) 12/21/24 01:43 Parainfluenza 2 (PCR) Not detected (NOT DETECT) 12/21/24 01:43 Parainfluenza 3 (PCR) Not detected (NOT DETECT) 12/21/24 01:43 Parainfluenza 4 (PCR) Not detected (NOT DETECT) 12/21/24 01:43 RSV (PCR) Negative (Negative) 12/20/24 17:54 RSV Type A (PCR) Not detected (NOT DETECT) 12/21/24 01:43 RSV Type B (PCR) Not detected (NOT DETECT) 12/21/24 01:43 Entero/Rhino (PCR) Not detected (NOT DETECT) 12/21/24 01:43 SARS-CoV-2 (PCR) Not detected (NOT DETECT) 12/21/24 01:43 All radiology interpretation(s) finalized by discharge Discharge Plan Discharge Patient Disposition: Admitted As Inpatient Admit Provider: Christy Gunderson Clinical Impression: Congestive heart failure, Acute hypoxemic respiratory failure Condition: Stable Coding Level of Care Code ED Java Developer Architect for Caleb Hollingsworth
[2024-12-20 17:19] LABS: Hematocrit 27.4 % (36-47); Hemoglobin 8.20 g/dL (11.27-16.99); Mean Corpuscular HGB Conc 29.9 g/dL (30-55); Mean Corpuscular Hemoglobin 26.9 pg (27-33); Mean Corpuscular Volume 89.8 fl (85-98); Nucleated Red Blood Cells % 0 %; Platelet Count 374 10^3/cmm (157-399); Red Blood Count 3.05 10^6/uL (3.85-5.65); White Blood Count 20.64 10^3/uL (3.29-11.43)
--- OUTSIDE RECORDS SUMMARY | 2024-12-20 17:44 | XMS_ITS | Encounter Summary ---
Author Organization [facility] Address [address] [place] [address] Care Team Providers Care Circulation Clerk Name Role Phone Blossom Barney MD Primary Care Provider +1- [phone] Encounter Details Date Type Department Care Team (Latest Contact Info) Description 02/02/2007 Outpatient Historical [facility] 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
--- OUTSIDE RECORDS SUMMARY | 2024-12-20 17:44 | XMS_ITS | Encounter Summary ---
Author Organization [facility] Address [address] [place] [address] Care Team Providers Care Corporate Director Of Pharmacy Name Role Phone Blossom Braney MD Primary Care Provider +1- [phone] Encounter Details Date Type Department Care Team (Latest Contact Info) Description 03/10/2000 Outpatient Historical [facility] [address] [place] [phone] Justyn Mendez, OD [address] [place] [address] Hypermetropia (Primary Dx); Presbyopia Social History Tobacco Use Types Packs/Day Years Used Date Smoking Tobacco: Never Assessed Comments Unknown Sex and Gender Information Value Date Recorded Sex Assigned at Not on file 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
--- OUTSIDE RECORDS SUMMARY | 2024-12-20 17:44 | XMS_ITS | Encounter Summary ---
Author Organization [facility] Address [address] [place] [address] Care Team Providers Care Public Bath Attendant Name Role Phone Blossom Barney MD Primary Care Provider +1- [phone] Encounter Details Date Type Department Care Team (Latest Contact Info) Description 02/09/2007 Outpatient Historical [facility]- 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
--- OUTSIDE RECORDS SUMMARY | 2024-12-20 17:44 | XMS_ITS | Encounter Summary ---
Author Organization [facility] Address [address] [place] [address] Care Team Providers Care Media Relations Coordinator Name Role Phone Blossom Barney MD Primary Care Provider +1- [phone] Encounter Details Date Type Department Care Team (Late st Contact Info) Description 05/18/2007 Outpatient Historical [facility]- 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
--- OUTSIDE RECORDS SUMMARY | 2024-12-20 17:44 | XMS_ITS | Encounter Summary ---
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 Gender Identity Not on file Sexual Orientation Not on file documented as of this encounter Plan of Treatment Not on file documented as of this encounter Procedures Procedure Name Priority Date/Time Associated Diagnosis Comments POC GLUCOSE Routine 04/30/2007 10:51 AM FLIGHT CREW SCHEDULER PROTIME-INR Routine 04/30/2007 8:22 AM FLIGHT CREW SCHEDULER POC GLUCOSE Routine 04/30/2007 5:54 AM FLIGHT CREW SCHEDULER POC GLUCOSE Routine 04/29/2007 8:20 PM FLIGHT CREW SCHEDULER POC GLUCOSE Routine 04/29/2007 5:19 PM FLIGHT CREW SCHEDULER POC GLUCOSE Routine 04/29/2007 11:05 AM FLIGHT CREW SCHEDULER POC GLUCOSE Routine 04/29/2007 6:20 AM FLIGHT CREW SCHEDULER PROTIME-INR Routine 04/29/2007 5:00 AM FLIGHT CREW SCHEDULER POC GLUCOSE Routine 04/28/2007 10:06 PM FLIGHT CREW SCHEDULER POC GLUCOSE Routine 04/28/2007 4:47 PM FLIGHT CREW SCHEDULER POC GLUCOSE Routine 04/28/2007 11:20 AM FLIGHT CREW SCHEDULER PROTIME-INR Routine 04/28/2007 5:42 AM FLIGHT CREW SCHEDULER POC GLUCOSE Routine 04/28/2007 5:27 AM FLIGHT CREW SCHEDULER POC GLUCOSE Routine 04/27/2007 9:57 PM FLIGHT CREW SCHEDULER POC GLUCOSE Routine 04/27/2007 5:22 PM FLIGHT CREW SCHEDULER URINALYSIS MICROSCOPY ONLY Routine 04/27/2007 2:30 PM FLIGHT CREW SCHEDULER URINALYSIS W/REFLEX MICROSCOPIC Routine 04/27/2007 2:30 PM FLIGHT CREW SCHEDULER POC GLUCOSE Routine 04/27/2007 10:51 AM FLIGHT CREW SCHEDULER PROTIME-INR Routine 04/27/2007 5:50 AM FLIGHT CREW SCHEDULER CBC WITHOUT DIFFERENTIAL Routine 04/27/2007 5:50 AM FLIGHT CREW SCHEDULER POC GLUCOSE Routine 04/27/2007 5:00 AM FLIGHT CREW SCHEDULER POC GLUCOSE Routine 04/27/2007 12:29 AM FLIGHT CREW SCHEDULER POC GLUCOSE Routine 04/26/2007 9:46 PM FLIGHT CREW SCHEDULER POC GLUCOSE Routine 04/26/2007 5:25 PM FLIGHT CREW SCHEDULER POC GLUCOSE Routine 04/26/2007 12:16 PM FLIGHT CREW SCHEDULER POC GLUCOSE Routine 04/26/2007 9:26 AM FLIGHT CREW SCHEDULER POC GLUCOSE Routine 04/26/2007 5:47 AM FLIGHT CREW SCHEDULER documented in this encounter Results * (ABNORMAL) POC GLUCOSE (04/30/2007 10:51 AM FLIGHT CREW SCHEDULER) GLUCOSE POC 154(H) 60 - 100 mg/dL INTERFACE SYSTEM 04/30/2007 10:5 1 AM FLIGHT CREW SCHEDULER Justyn Bajwa MD POINT OF CARE TESTING Edited Performing Organization Address City/[facility]/ZIP Co de Phone Number INTERFACE SYSTEM Refer to clinic/hospital department * (ABNORMAL) PROTIME-INR (04/30/2007 8:22 AM FLIGHT CREW SCHEDULER) PROTIME 23.1(H) 13.0 - 15.7 Secs INTERFACE SYSTEM Comment: As of 06 note change in normal range. INR 1.9 INTERFACE SYSTEM Comment: Expected Values for INR: DVT/PE Goal INR 2.5; range 2.0 - 3.0 Valve Replacement Tissue Goal INR 2.5; range 2.0 - 3.0 Mechanical Goal INR 3.0; range 2.5 - 3.5 POST-MN Goal INR 2.5; range 2.0 - 3.0 or Goal 3.0; range 2.5 - 3.5 Atrial Fibrillation Goal INR 2.5; range 2.0 - 3.0 Ischemic Stroke Goal INR 2.5; range 2.0 - 3.0 For additional information see Guidelines for Anticoagulation available from the pharmacy Dorene Mcintosh D. 04/30/2007 8:22 AM FLIGHT CREW SCHEDULER Justyn Bajwa MD HEMATOLOGY ORDERABLES Edited Performing Organization Address City/[facility] de Phone Number INTERFACE SYSTEM Refer to clinic/hospital department * (ABNORMAL) POC GLUCOSE (04/30/2007 5:54 AM FLIGHT CREW SCHEDULER) GLUCOSE POC 158(H) 60 - 100 mg/dL INTERFACE SYSTEM COMMENT POC Follow Protocol INTERFACE SYSTEM 04/30/2007 5:54 AM FLIGHT CREW SCHEDULER Justyn Bajwa MD POINT OF CARE TESTING Edited Performing Organization Address City/[facility]/ZIP Co de Phone Number INTERFACE SYSTEM Refer to clinic/hospital department * (ABNORMAL) POC GLUCOSE (04/29/2007 8:20 PM FLIGHT CREW SCHEDULER) GLUCOSE POC 205(H) 60 - 100 mg/dL INTERFACE SYSTEM COMMENT POC Follow Protocol INTERFACE SYSTEM 04/29/2007 8:20 PM FLIGHT CREW SCHEDULER Justyn Bajwa MD POINT OF CARE TESTING Edited Performing Organization Address City/[facility] Co de Phone Number INTERFACE SYSTEM Refer to clinic/hospital department * (ABNORMAL) POC GLUCOSE (04/29/2007 5:19 PM FLIGHT CREW SCHEDULER) GLUCOSE POC 152(H) 60 - 100 mg/dL INTERFACE SYSTEM 04/29/2007 5:19 PM FLIGHT CREW SCHEDULER Justyn Bajwa MD POINT OF CARE TESTING Edited Performing Organization Address City/[facility] de Phone Number INTERFACE SYSTEM Refer to clinic/hospital department * (ABNORMAL) POC GLUCOSE (04/29/2007 11:05 AM FLIGHT CREW SCHEDULER) GLUCOSE POC 147(H) 60 - 100 mg/dL INTERFACE SYSTEM 04/29/2007 11:0 5 AM FLIGHT CREW SCHEDULER us Justyn Bajwa MD POINT OF CARE TESTING Edited Performing Organization Address City/[facility] de Phone Number INTERFACE SYSTEM Refer to clinic/hospital department * (ABNORMAL) POC GLUCOSE (04/29/2007 6:20 AM FLIGHT CREW SCHEDULER) GLUCOSE POC 185(H) 60 - 100 mg/dL INTERFACE SYSTEM 04/29/2007 6:20 AM FLIGHT CREW SCHEDULER us Justyn Bajwa MD POINT OF CARE TESTING Edited Performing Organization Address City/[facility] Co de Phone Number INTERFACE SYSTEM Refer to clinic/hospital department * (ABNORMAL) PROTIME-INR (04/29/2007 5:00 AM FLIGHT CREW SCHEDULER) PROTIME 20.4(H) 13.0 - 15.7 Secs INTERFACE SYSTEM Comment: As of 06 note change in normal range. INR 1.6 INTERFACE SYSTEM Comment: Expected Values for INR: DVT/PE Goal INR 2.5; range 2.0 - 3.0 Valve Replacement Tissue Goal INR 2.5; range 2.0 - 3.0 Mechanical Goal INR 3.0; range 2.5 - 3.5 POST-MN Goal INR 2.5; range 2.0 - 3.0 or Goal 3.0; range 2.5 - 3.5 Atrial Fibrillation Goal INR 2.5; range 2.0 - 3.0 Ischemic Stroke Goal INR 2.5; range 2.0 - 3.0 For additional information see Guidelines for Anticoagulation available from the pharmacy Natalia Vázquez, Dorene D. 04/29/2007 5:00 AM FLIGHT CREW SCHEDULER Justyn Bajwa MD HEMATOLOGY ORDERABLES Edited Performing Organization Address [facility] Phone Number INTERFACE SYSTEM Refer to clinic/hospital department * (ABNORMAL) POC GLUCOSE (04/28/2007 10:06 PM FLIGHT CREW SCHEDULER) GLUCOSE POC 195(H) 60 - 100 mg/dL INTERFACE SYSTEM 04/28/2007 10:0 6 PM FLIGHT CREW SCHEDULER Justyn Bajwa MD POINT OF CARE TESTING Edited Performing Organization Address [facility] de Phone Number INTERFACE SYSTEM Refer to clinic/hospital department * (ABNORMAL) POC GLUCOSE (04/28/2007 4:47 PM FLIGHT CREW SCHEDULER) GLUCOSE POC 156(H) 60 - 100 mg/dL INTERFACE SYSTEM 04/28/2007 4:47 PM FLIGHT CREW SCHEDULER Justyn Bajwa MD POINT OF CARE TESTING Edited Performing Organization Address City/[facility] de Phone Number INTERFACE SYSTEM Refer to clinic/hospital department * (ABNORMAL) POC GLUCOSE (04/28/2007 11:20 AM FLIGHT CREW SCHEDULER) GLUCOSE POC 175(H) 60 - 100 mg/dL INTERFACE SYSTEM 04/28/2007 11:2 0 AM FLIGHT CREW SCHEDULER Justyn Bajwa MD POINT OF CARE TESTING Edited Performing Organization Address [facility] Phone Number INTERFACE SYSTEM Refer to clinic/hospital department * (ABNORMAL) PROTIME-INR (04/28/2007 5:42 AM FLIGHT CREW SCHEDULER) PROTIME 18.5(H) 13.0 - 15.7 Secs INTERFACE SYSTEM Comment: As of 06 note change in normal range. INR 1.4 INTERFACE SYSTEM Comment: Expected Values for INR: DVT/PE Goal INR 2.5; range 2.0 - 3.0 Valve Replacement Tissue Goal INR 2.5; range 2.0 - 3.0 Mechanical Goal INR 3.0; range 2.5 - 3.5 POST-MN Goal INR 2.5; range 2.0 - 3.0 or Goal 3.0; range 2.5 - 3.5 Atrial Fibrillation Goal INR 2.5; range 2.0 - 3.0 Ischemic Stroke Goal INR 2.5; range 2.0 - 3.0 For additional information see Guidelines for Anticoagulation available from the pharmacy Natalia Vázquez Pharm D. 04/28/2007 5:42 AM FLIGHT CREW SCHEDULER Justyn Bajwa MD HEMATOLOGY ORDERABLES Edited Performing Organization Address [facility] Phone Number INTERFACE SYSTEM Refer to clinic/hospital department * (ABNORMAL) POC GLUCOSE (04/28/2007 5:27 AM FLIGHT CREW SCHEDULER) GLUCOSE POC 171(H) 60 - 100 mg/dL INTERFACE SYSTEM 04/28/2007 5:27 AM FLIGHT CREW SCHEDULER Justyn Bajwa MD POINT OF CARE TESTING Edited Performing Organization Address [facility] Phone Number INTERFACE SYSTEM Refer to clinic/hospital department * (ABNORMAL) POC GLUCOSE (04/27/2007 9:57 PM FLIGHT CREW SCHEDULER) GLUCOSE POC 185(H) 60 - 100 mg/dL INTERFACE SYSTEM 04/27/2007 9:57 PM FLIGHT CREW SCHEDULER Justyn Bajwa MD POINT OF CARE TESTING Edited Performing Organization Address [facility] Phone Number INTERFACE SYSTEM Refer to clinic/hospital department * (ABNORMAL) POC GLUCOSE (04/27/2007 5:22 PM FLIGHT CREW SCHEDULER) GLUCOSE POC 138(H) 60 - 100 mg/dL INTERFACE SYSTEM 04/27/2007 5:22 PM FLIGHT CREW SCHEDULER Justyn Bajwa MD POINT OF CARE TESTING Edited Performing Organization Address [facility] Phone Number INTERFACE SYSTEM Refer to clinic/hospital department * (ABNORMAL) URINALYSIS MICROSCOPY ONLY (04/27/2007 2:30 PM FLIGHT CREW SCHEDULER) WBC URINE None Seen 0 - 2 INTERFACE SYSTEM RBC UA 0-2 0 - 2 INTERFACE SYSTEM HYALINE CAST None Seen 0 - 2 INTERFA CE SYSTEM BACTERIA UA Few(A) None Seen INTERFAC E SYSTEM 04/27/2007 2:30 PM FLIGHT CREW SCHEDULER Justyn Bajwa MD URINE ORDERABLES Edited Performing Organization Address [facility] Number INTERFACE SYSTEM Refer to clinic/hospital department * (ABNORMAL) URINALYSIS (04/27/2007 2:30 PM FLIGHT CREW SCHEDULER) COLOR UA Yellow Straw INTERFACE SYSTEM CLARITY UA Clear Clear INTERFACE SYSTEM LEUKOCYTE ESTERASE UA NEGATIVE NEGATIVE INTERFACE SYSTEM NITRITE UA NEGATIVE NEGATIVE INTERFACE SYSTEM PH UA 5.5 5.0 - 9.0 INTERFACE SYSTEM PROTEIN UA NEGATIVE NEGATIVE INTERFACE SYSTEM GLUCOSE UA NEGATIVE NEGATIVE INTERFACE SYSTEM KETONES UA NEGATIVE NEGATIVE INTERFACE SYSTEM UROBILINOGEN UA 0.2 0.2 INTE RFACE SYSTEM BILIRUBIN UA NEGATIVE NEGATIVE INTERFA CE SYSTEM BLOOD UA Trace(A) NEGATIVE INTERFACE SYSTEM SPECIFIC GRAVITY UA 1.010 <=1.005 INTERFACE SYSTEM MICRO EXAM Yes(A) No INTERFACE SYSTEM 04/27/2007 2:30 PM FLIGHT CREW SCHEDULER Justyn Bajwa MD URINE ORDERABLES Edited Performing Organization Address [facility]/ZIP Co de Phone Number INTERFACE SYSTEM Refer to clinic/hospital department * (ABNORMAL) POC GLUCOSE (04/27/2007 10:51 AM FLIGHT CREW SCHEDULER) GLUCOSE POC 173(H) 60 - 100 mg/dL INTERFACE SYSTEM 04/27/2007 10:5 1 AM FLIGHT CREW SCHEDULER Justyn Bajwa MD POINT OF CARE TESTING Edited Performing Organization Address [facility] Phone Number INTERFACE SYSTEM Refer to clinic/hospital department * (ABNORMAL) PROTIME-INR (04/27/2007 5:50 AM FLIGHT CREW SCHEDULER) Pathologist [facility] PROTIME 16.1(H) 13.0 - 15.7 Secs INTERFACE SYSTEM Comment: As of 06 note change in normal range. INR 1.2 INTERFACE SYSTEM Comment: Expected Values for INR: DVT/PE Goal INR 2.5; range 2.0 - 3.0 Valve Replacement Tissue Goal INR 2.5; range 2.0 - 3.0 Mechanical Goal INR 3.0; range 2.5 - 3.5 POST-MN Goal INR 2.5; range 2.0 - 3.0 or Goal 3.0; range 2.5 - 3.5 Atrial Fibrillation Goal INR 2.5; range 2.0 - 3.0 Ischemic Stroke Goal INR 2.5; range 2.0 - 3.0 For additional information see Guidelines for Anticoagulation available from the pharmacy Dorene Mcintosh. 04/27/2007 5:50 AM FLIGHT CREW SCHEDULER us Justyn Bajwa MD HEMATOLOGY ORDERABLES Edited Performing Organization Address [facility] Phone Number INTERFACE SYSTEM Refer to clinic/hospital department * (ABNORMAL) CBC WITHOUT DIFFERENTIAL (04/27/2007 5:50 AM FLIGHT CREW SCHEDULER) WBC 17.0(H) 4.8 - 10.8 K/ul INTERFACE SYSTEM RBC 3.33(L) 4.20 - 5.40 Mil/ul INTERFACE SYSTEM HEMOGLOBIN 9.9(L) 12.0 - 16.0 g/dL INTERFACE SYSTEM HEMATOCRIT 30.6(L) 36.0 - 46.0 % INTERFACE SYSTEM MCV 91.9 84.0 - 103.0 Fl INTERFACE SYSTEM MCH 29.7 27.0 - 34.0 pg INTERFACE SYSTEM MCHC 32.4 30.0 - 35.0 g/dL INTERFACE SYSTEM RDW 14.7(H) 11.0 - 14.5 % INTERFACE SYSTEM PLATELETS 187 140 - 440 K/ul INTERFACE SYSTEM MPV 11.1 8.9 - 12.8 Fl INTERFACE SYSTEM NEUTROPHILS 77.6(H) 42.2 - 75.2 % INTERFACE SYSTEM LYMPHOCYTES 11.9(L) 24.0 - 44.0 % INTERFACE SYSTEM MONOCYTES 10.1(H) 2.0 - 10.0 % INTERFACE SYSTEM EOSINOPHILS 0.2 0.0 - 7.0 % INTERFACE SYSTEM BASOPHILS 0.2 0.0 - 1.0 % INTERFACE SYSTEM NEUTROPHIL ABSOLUTE 13.2(H) 2.0 - 8.0 K/ul INTERFACE SYSTEM LYMPHOCYTE ABSOLUTE 2.0 1.2 - 4.0 K/ul INTERFACE SYSTEM MONOCYTE ABSOLUTE 1.7(H) 0.1 - 0.6 K/ul INTERFACE SYSTEM EOSINOPHIL ABSOLUTE 0.0 0.0 - 0.7 K/ul INTERFACE SYSTEM BASOPHILS ABSOLUTE 0.0 0.0 - 0.2 K/ul INTERFACE SYSTEM 04/27/2007 5:50 AM FLIGHT CREW SCHEDULER Justyn Bajwa MD HEMATOLOGY ORDERABLES Edited Performing Organization Address City/[facility] Co de Phone Number INTERFACE SYSTEM Refer to clinic/hospital department * (ABNORMAL) POC GLUCOSE (04/27/2007 5:00 AM FLIGHT CREW SCHEDULER) GLUCOSE POC 226(H) 60 - 100 mg/dL INTERFACE SYSTEM 04/27/2007 5:00 AM FLIGHT CREW SCHEDULER Justyn Bajwa MD POINT OF CARE TESTING Edited INTERFACE SYSTEM Refer to clinic/hospital department * (ABNORMAL) POC GLUCOSE (04/27/2007 12:29 AM FLIGHT CREW SCHEDULER) GLUCOSE POC 229(H) 60 - 100 mg/dL INTERFACE SYSTEM 04/27/2007 12:2 9 AM FLIGHT CREW SCHEDULER Justyn Bajwa MD POINT OF CARE TESTING Edited Performing Organization Address City/[facility] Co de Phone Number INTERFACE SYSTEM Refer to clinic/hospital department * (ABNORMAL) POC GLUCOSE (04/26/2007 9:46 PM FLIGHT CREW SCHEDULER) GLUCOSE POC 266(H) 60 - 100 mg/dL INTERFACE SYSTEM 04/26/2007 9:46 PM FLIGHT CREW SCHEDULER Justyn Bajwa MD POINT OF CARE TESTING Edited Performing Organization Address City/[facility] de Phone Number INTERFACE SYSTEM Refer to clinic/hospital department * (ABNORMAL) POC GLUCOSE (04/26/2007 5:25 PM FLIGHT CREW SCHEDULER) GLUCOSE POC 202(H) 60 - 100 mg/dL INTERFACE SYSTEM 04/26/2007 5:25 PM FLIGHT CREW SCHEDULER Justyn Bajwa MD POINT OF CARE TESTING Edited Performing Organization Address [facility] de Phone Number INTERFACE SYSTEM Refer to clinic/hospital department * (ABNORMAL) POC GLUCOSE (04/26/2007 12:16 PM FLIGHT CREW SCHEDULER) GLUCOSE POC 190(H) 60 - 100 mg/dL INTERFACE SYSTEM 04/26/2007 12:1 6 PM FLIGHT CREW SCHEDULER Justyn Bajwa MD POINT OF CARE TESTING Edited Performing Organization Address City/[facility] de Phone Number INTERFACE SYSTEM Refer to clinic/hospital department * (ABNORMAL) POC GLUCOSE (04/26/2007 9:26 AM FLIGHT CREW SCHEDULER) GLUCOSE POC 177(H) 60 - 100 mg/dL INTERFACE SYSTEM 04/26/2007 9:26 AM FLIGHT CREW SCHEDULER us Justyn Bajwa MD POINT OF CARE TESTING Edited Performing Organization Address City/[facility] Co de Phone Number INTERFACE SYSTEM Refer to clinic/hospital department * (ABNORMAL) POC GLUCOSE (04/26/2007 5:47 AM FLIGHT CREW SCHEDULER) GLUCOSE POC 149(H) 60 - 100 mg/dL INTERFACE SYSTEM 04/26/2007 5:47 AM FLIGHT CREW SCHEDULER us Justyn Bajwa MD POINT OF CARE TESTING Edited INTERFACE SYSTEM Refer to clinic/hospital department documented in this encounter Visit Diagnoses Not on filedocumented in this encounter Care Teams Hiv Prevention Specialist Relationship Specialty Start Date End Date Blossom Barney MD [address] [place] [id number] PCP - General Internal Medicine 12/12/18 documented as of this encounter
--- OUTSIDE RECORDS SUMMARY | 2024-12-20 17:44 | XMS_ITS | Patient Health Record ---
Author Organization [facility] [employer] Address [address] [place], [place] [id number] Care Team Providers Care Qualitative Executive Researcher Name Role Phone Savita NOEL, Blossom Primary Care Provider Unavailab brice Nick MD, Art Unavailable [phone] Goodman KENTM, Saran Unavailable Unavailable Isrrael VEGAP, Vidya Unavailable [phone] Allergies Allergen (clinical drug ingredient) Drug/Non Drug Allergy documented on EMR Reaction Allergy Type Onset Date Status Latex latex (uncoded) rash Allergy Acti ve sulfa (uncoded) rash Allergy Acti ve naproxen rash Drug Allergy Active sulindac sulindac rash Drug Allergy Active penicillin rash Drug Allergy Active Results Component Value Reference Range Notes Urine tox screen / MS if ind icated Reviewed date:01/05/2024 11:13:18 AM Interpretation:Consistent Performing Lab: Notes/Report: Consistent Reason For Referral No Information Medications Medication SIG (Take, Route, Frequency, Duration) Notes Start Date End Date Status OxyCODONE Hydrochloride 20 mg 1/2 - 1 tab orally Q4-6H prn pain (max 2/day; hold within 4H of planned sleep) for 28 days Do not fill prior to 11/30/24. ICD-10: G89.29 09/07/2024 Active Probiotic Formula Ac tive ProbioSlim Apple Cider Vinegar as directed Active predniSONE 5 mg 1 1/2 tab(s) orally daily for 3-5 days, as needed for joint pain flare Active pravastatin 20 mg 1 tab(s) orally once a day for 30 day(s) Active tiZANidine 4 mg 1 cap(s) orally ever y 6-8 hours, as needed Active Renflexis abda 100 mg as directed intravenously every 8 weeks for 16 week(s) Active NovoLOG 100 units/mL as directed subcutaneously Active Metoprolol Tartrate 50 mg 1 tab(s) orally 2 times a day for 30 day(s) Active menthol topical 5% 1 PATCH applied topically 3 times a day Active oxyCODONE 20 mg 1/2 - 1 tab orally Q4-6H prn pain (max 2/day; hold within 4H of planned sleep) for 28 days Do not fill prior to 11/02/24. ICD-10: G89.29 09/07/2024 Active oxyCODONE 20 mg 1/2 - 1 tab orally Q4-6H prn pain (max 2/day; hold within 4H of planned sleep) for 28 days Do not fill prior to 10/05/24. ICD-10: G89.29 09/07/2024 Active DULoxetine 60 mg 1 cap(s) orally once a day for 30 day(s) Active Citracal 250 mg + D Active cinnamon 500 mg 1-2 cap(s) orally 2 times a day Active aspirin 81 mg 1 tab(s) orally once a day for 30 day(s) Active losartan 100 mg 1 tab(s) orally once a day Active Jardiance 10 mg 1 tab(s) orally once a day (in the morning) 03/01/2024 Active gabapentin 300 mg 1 cap(s) orally 3 times a day for 30 day(s) Active Tresiba FlexTouch 100 units/mL as directed subcutaneously once a day Active amLODIPine 2.5 mg 1 tab(s) orally once a day Active allopurinol 100 mg 1 tab(s) orally 2 times a day Active Vitamin B12 Methylcobalamin 5000 mcg as directed sublingually once a day 02/16/2022 Active Albuterol (Eqv-ProAir HFA) 90 mcg/inh 2 puff(s) inhaled every 6 hours 06/03/2022 Active Tylenol 8 HR Arthritis Pain 650 mg 1-2 tab(s) orally every 8 hours, as needed Active turmeric 500 mg 1 cap(s) orally once a day 02/16/2022 Active Social History Tobacco Use: Social History Observation Description Date Details (start date - stop date) Never Smoker NA - NA Tobacco use: Question Answer Notes : nonsmoker AUDIT-C (Standard) Question Answer Notes Did you have a drink containing alcohol in the p ast year? 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) Active confirmed Problem Obstructive sleep apnea syndrome (40678652) Obstructive sleep apnea (adult) (pediatric) (G47.33) Active confirmed Problem Chronic pain (45468996) Other chronic pain (G89.29) Active confirmed Problem Essential hypertension (21422406) Essential (primary) hypertension (I10) Active confirmed Problem Arthropathy associated with a neurological disorder (95549472) Charcot's joint, right ankle and foot (M14.671) Active confirmed Problem Arthralgia of the ankle and/or foot (949286132) Pain in right ankle and joints of right foot (M25.571) Active confirmed Vital Signs Temperature 97.8 degrees Fahrenheit 09/07/2024 Blood pressure diastolic 57 mm Hg 09/07/2024 Oximetry 93 % 09/07/2024 Height 65 in 09/07/2024 Blood pressure systolic 142 mm Hg 09/07/2024 Weight 219.8 lbs 09/07/2024 BMI 36.57 kg/m2 09/07/2024 Encounters Encounter Location Date Provider Diagnosis [email or web address] [address] [place], [place] [id number] 01/05/2024 Vidya Isrrael Pain in right ankle and joints of right foot M25.571 ; Other chronic pain G89.29 ; Charcot's joint, right ankle and foot M14.671 ; Obstructive sleep apnea (adult) (pediatric) G47.33 and emt intermediate (current) use of opiate analgesic Z79.891 [facility] [employer] [place], [place] [id number] 03/01/2024 Art Nick Pain in right ankle and joints of right foot M25.571 ; Other chronic pain G89.29 ; Charcot's joint, right ankle and foot M14.671 and Obstructive sleep apnea (adult) (pediatric) G47.33 [facility] [address] [place], [place] [id number] 05/03/2024 Art Nick Pain in right ankle and joints of right foot M25.571 ; Other chronic pain G89.29 ; Charcot's joint, right ankle and foot M14.671 and Obstructive sleep apnea (adult) (pediatric) G47.33 [facility] [address] [employer] [place], [place] [id number] 06/22/2024 Art Nick Pain in right ankle and joints of right foot M25.571 ; Other chronic pain G89.29 ; Charcot's joint, right ankle and foot M14.671 and Obstructive sleep apnea (adult) (pediatric) G47.33 [facility] [address] [employer] [place], [place] [id number] 09/07/2024 Art Nick Pain in right ankle and joints of right foot M25.571 ; Other chronic pain G89.29 ; Charcot's joint, right ankle and foot M14.671 ; Essential (primary) hypertension I10 and Obstructive sleep apnea (adult) (pediatric) G47.33 Assessments Encounter Date Diagnosis (ICD Code) Assessment Notes Treatment Notes Treatment Clinical Notes Section Notes 03/01/2024 Pain in right ankle and joints of right foot (ICD-10 - M25.571) Chronic ankle pain. 06/22/2024 Pain in right ankle and joints of right foot (ICD-10 - M25.571) Chronic ankle pain. 09/07/2024 Other chronic pain (ICD-10 - G89.29) Patient reports that taking her pain medication allows her to spend more time on her feet. Plan to continue oral opioid medication management. 09/07/2024 Pain in right ankle and joints of right foot (ICD-10 - M25.571) Chronic ankle pain. 05/03/2024 Other chronic pain (ICD-10 - G89.29) Patient reports that taking her pain medication allows her to spend more time doing weight bearing activities. Plan to continue oral opioid medication management. 05/03/2024 Pain in right ankle and joints of right foot (ICD-10 - M25.571) Chronic ankle pain. 01/05/2024 Pain in right ankle and joints of right foot (ICD-10 - M25.571) Chronic ankle pain. 01/05/2024 Other chronic pain (ICD-10 - G89.29) Patient reports that taking her pain medication allows her to be more active. Plan to continue oral opioid medication management. 01/05/2024 Charcot's joint, right ankle and foot (ICD-10 - M14.671) Patient has reports benefit and less pain pain with using her leg / foot brace and she wears it regularly. Charcot foot due to diabetes mellitus as per past medical history. Patient has reported that her doctor, Dr. Oneal, told her that the foot is inoperable. 05/03/2024 Charcot's joint, right ankle and foot (ICD-10 - M14.671) Patient has reports benefit and less pain pain with using her leg / foot brace and she wears it regularly. Charcot foot due to diabetes mellitus as per past medical history. Patient has reported that her doctor, Dr. Oneal, told her that the foot is inoperable. 09/07/2024 Charcot's joint, right ankle and foot (ICD-10 - M14.671) Charcot foot due to diabetes mellitus as per past medical history. Encouraged patient to follow up with her manager provider relations, Dr. Oneal as needed. 06/22/2024 Other chronic pain (ICD-10 - G89.29) Patient reports that taking her pain medication allows her to spend more time on her feet. Plan to continue oral opioid medication management. 03/01/2024 Other chronic pain (ICD-10 - G89.29) Patient reports that taking her pain medication allows her to spend more time doing weight bearing activities. Plan to continue oral opioid medication management. 03/01/2024 Charcot's joint, right ankle and foot (ICD-10 - M14.671) Patient has reports benefit and less pain pain with using her leg / foot brace and she wears it regularly. Charcot foot due to diabetes mellitus as per past medical history. Patient has reported that her doctor, Dr. Oneal, told her that the foot is inoperable. 03/01/2024 Obstructive sleep apnea (adult) (pediatric) (ICD-10 - G47.33) Patient confirms nightly use of her CPAP device. 06/22/2024 Charcot's joint, right ankle and foot (ICD-10 - M14.671) Patient has reported benefit and less pain pain with using her leg / foot brace and she wears it regularly. Charcot foot due to diabetes mellitus as per past medical history. Patient has reported that her doctor, Dr. Oneal, told her that the foot is inoperable. 09/07/2024 Essential (primary) hypertension (ICD-10 - I10) Education sheet given at today's visit; patient to address with PCP. 05/03/2024 Obstructive sleep apnea (adult) (pediatric) (ICD-10 - G47.33) Patient confirms nightly use of her CPAP device. 01/05/2024 Obstructive sleep apnea (adult) (pediatric) (ICD-10 - G47.33) Patient reports partial compliance with use of her CPAP device due to neck pain. 01/05/2024 senior living (current) use of opiate analgesic (ICD-10 - Z79.891) 2022 opioid (OUD) risk tool score = 0. This places the patient in the low risk category. Plan urine toxicology screen today to monitor for presence of any unprescribed or illicit controlled substance(s), as well as prescribed oxycodone. 09/07/2024 Obstructive sleep apnea (adult) (pediatric) (ICD-10 - G47.33) Patient confirms nightly use of her CPAP device. 06/22/2024 Obstructive sleep apnea (adult) (pediatric) (ICD-10 - G47.33) Patient confirms nightly use of her CPAP device. 05/03/2024 Other Agree with patient's decision to change her pharmacy. However, patient is aware that if she has any further issues with her medication, counts, etc. her care at this facility will be terminated. The service was provided by SLY Piña, as part of the ongoing care plan established by Art Nick MD, who was present in the office for direct supervision during the encounter. 06/22/2024 Other The service was provided by SLY Piña, as part of the ongoing care plan established by Art Nick MD, who was present in the office for direct supervision during the encounter. 09/07/2024 Other The service was provided by SLY Piña, as part of the ongoing care plan established by Art Nick MD, who was present in the office for direct supervision during the encounter. Patient was provided with a letter at today's visit informing patient that this clinic is closing due to Dr. Nick's mcc; see scanned document. Terminal prescriptions were given to the patient along with tapering instructions. 03/01/2024 Other Patient reports that a bottle of her medication was found to be missing on 02/22/24. A copy of the police report is scanned into her chart. She presented today with her bottles from 01/05/24 and 02/01/24; could have possibly been her bottle from 09/23/23. Patient also states she has not taken 2 tablets a day over the past 29 days since her fill on 02/01/24, therefore suspects someone has also gotten into her current bottle. She plans to keep it on her person at all times both at home and when she is away from home. Patient counselled regarding [facility] policy regarding failure to secure her medication. The service was provided by SLY Piña, as part of the ongoing care plan established by Art Nick MD, who was present in the office for direct supervision during the encounter. 01/05/2024 Other Plan Of Treatment No Information Insurance Providers Payer Name Payer Address Payer Phone Subscriber Number Group Number Insured Name Patient Relationship to Insured Coverage Start Date Coverage End Date [employer] Medicare Part B Claims Department [address] [address] [place] [address] [id number] Adina Gracia Self - patient is the insured [place] MEDICARE SUPPLEMENT [address] [address] [place] [address] [id number] Adina Gracia Self - patient is the insured Medical (General) History Medical History History ICD Code Chronic pain Right ankle pain Mass of right ankle Charcot foot due to diabetes mellitus Ankle and leg pain due to Charcot foot Osteoarthritis Diabetes mellitus type II Chronic use of steroids Seronegative rhematoid arthritis of both hands Diabetic peripheral neuropathy Atypical chest pain Chronic anemia Coronary artery disease Dyslipidemia Gout High risk medication use Onychodystrophy Nail dystrophy Sleep apnea Obesity, moderate Surgical History Surgery Date(Month/Year) Carpal tunnel release, bilateral, peform ed at [facility] Hysterectomy and appendectomy, 1973 Arthroscopic knee surgery, right, 2002 Total knee replacement, righ t, performed at [facility] in [place], [place], 2007 Cholecystectomy, 2011 Cyst removal from left foot, performed a t [facility] by Dr. Vignesh Zuñiga, 12/21/11 Ankle replacement surgery, left, perform ed at [place], 05/10/12 Hernia repair, performed at [facility] in [place], [place], 2014 Cervical fusion, performed at [facility] in [place], [place], 09/11/16 Cataract surgeries, bilateral, performed in [place], [place], 2018 Total hip replacement, left, peformed at [facility] in [place], [place], 2020 Shoulder replacement surgery , right, performed at [facility] in [place], [place], 2020 Hospitalization History Reason Date(Month/Year) Cardiac workup for chest pains, treated at [facility], 2020
--- OUTSIDE RECORDS SUMMARY | 2024-12-20 17:44 | XMS_ITS | Encounter Summary ---
Author Organization [facility] Address [address] [place] [address] Care Team Providers Care Safety Consultant Name Role Phone Blossom Barney MD Primary Care Provider [phone]- [phone] Encounter Details Date Type Department Care Team (Latest Contact Info) Description 01/26/2007 Outpatient Historical [facility] Orthopedics- [address] [place] [address] Justyn Bajwa MD NO ADDRESS ON FILE Pain in Joint, Lower Leg (Primary Dx); Primary Localized Osteoarthrosis, Lower Leg Social History Tobacco Use Types Packs/Day Years Used Date Smoking Tobacco: Never Assessed Comments Unknown Sex and Gender Information Value Date Recorded Sex Assigned at Not on file Legal Sex Female 3:59 AM COUNTY BAILIFF Gender Identity Not on file Sexual Orientation Not on file documented as of this encounter Plan of Treatment Not on file documented as of this encounter Visit Diagnoses Diagnosis Pain in joint, lower leg- Primary Primary localized osteoarthrosis, lower leg documented in this encounter Care Teams Safety Consultant Relationship Specialty Start Date End Date Blossom Barney MD [address] [place] [address] PCP - General Internal Medicine 12/12/18 documented as of this encounter
--- OUTSIDE RECORDS SUMMARY | 2024-12-20 17:44 | XMS_ITS | Encounter Summary ---
Author Organization [facility] Address [address] [place] [address] Care Team Providers Care Mergers And Acquisitions Attorney Name Role Phone Blossom Barney MD Primary Care Provider +1- [phone] Encounter Details Date Type Department Care Team (Late st Contact Info) Description 04/15/2007 Outpatient Historical [facility] [address] [place] [address] Justyn Bajwa MD NO ADDRESS ON FILE Social History Tobacco Use Types Packs/Day Years Used Date Smoking Tobacco: Never Assessed Comments Unknown Sex and Gender Information Value Date Recorded Sex Assigned at Not on file Legal Sex Female 3:59 AM COMMERCIAL PROPERTY MANAGER Gender Identity Not on file Sexual Orientation Not on file documented as of this encounter Plan of Treatment Not on file documented as of this encounter Procedures Procedure Name Priority Date/Time Associated Diagnosis Comments URINALYSIS MICROSCOPY ONLY Routine 04/15/2007 10:54 AM COMMERCIAL PROPERTY MANAGER URINALYSIS W/REFLEX MICROSCOPIC Routine 04/15/2007 10:54 AM COMMERCIAL PROPERTY MANAGER CBC WITH DIFFERENTIAL Routine 04/15/2007 10:10 AM COMMERCIAL PROPERTY MANAGER BASIC METABOLIC PANEL Routine 04/15/2007 10:10 AM COMMERCIAL PROPERTY MANAGER documented in this encounter Results * (ABNORMAL) URINALYSIS MICROSCOPY ONLY (04/15/2007 10:54 AM COMMERCIAL PROPERTY MANAGER) WBC URINE 3-5(A) 0 - 2 INTERFACE SYSTEM RBC UA None Seen 0 - 2 INTERFACE SYSTEM HYALINE CAST None Seen 0 - 2 INTERFA CE SYSTEM BACTERIA UA Moderate(A ) None Seen INTERFACE SYSTEM 04/15/2007 10:5 4 AM COMMERCIAL PROPERTY MANAGER Justyn Bajwa MD URINE ORDERABLES Edited Performing Organization Address [facility] Phone Number INTERFACE SYSTEM Refer to clinic/hospital department * (ABNORMAL) URINALYSIS (04/15/2007 10:54 AM COMMERCIAL PROPERTY MANAGER) COLOR UA Yellow Straw INTERFACE SYSTEM CLARITY UA Clear Clear INTERFACE SYSTEM LEUKOCYTE ESTERASE UA NEGATIVE NEGATIVE INTERFACE SYSTEM NITRITE UA POSITIVE(A) NEGATIVE INTERFA CE SYSTEM PH UA 5.5 5.0 - 9.0 INTERFACE SYSTEM PROTEIN UA NEGATIVE NEGATIVE INTERFACE SYSTEM GLUCOSE UA NEGATIVE NEGATIVE INTERFACE SYSTEM KETONES UA NEGATIVE NEGATIVE INTERFACE SYSTEM UROBILINOGEN UA 0.2 0.2 INTE RFACE SYSTEM BILIRUBIN UA NEGATIVE NEGATIVE INTERFA CE SYSTEM BLOOD UA NEGATIVE NEGATIVE INTERFACE SYSTEM SPECIFIC GRAVITY UA 1.020 <=1.005 INTERFACE SYSTEM MICRO EXAM Yes(A) No INTERFACE SYSTEM 04/15/2007 10:5 4 AM COMMERCIAL PROPERTY MANAGER Justyn Bajwa MD URINE ORDERABLES Edited Performing Organization Address [facility] Phone Number INTERFACE SYSTEM Refer to clinic/hospital department * (ABNORMAL) BASIC METABOLIC PANEL (04/15/2007 10:10 AM COMMERCIAL PROPERTY MANAGER) GLUCOSE 181(H) 70 - 110 mg/dL INTERFACE SYSTEM BUN 20(H) 7 - 17 mg/dL INTERFACE SYSTEM CREATININE 0.7 0.7 - 1.2 mg/dL INTERFACE SYSTEM SODIUM 139 136 - 145 mEq/L INTERFACE SYSTEM POTASSIUM 3.5 3.5 - 5.0 mEq/L INTERFACE SYSTEM CHLORIDE 108 95 - 110 mEq/L INTERFACE SYSTEM CO2 22 22 - 32 mmol/l INTERFACE SYSTEM CALCIUM 9.5 8.4 - 10.5 mg/dL INTERFACE SYSTEM ANION GAP 13 9 - 20 mEq/L INTERFACE SYSTEM OSMOLALITY, CALCULATED 292 275 - 295 mOsm/Kg INTERFACE SYSTEM 04/15/2007 10:1 0 AM COMMERCIAL PROPERTY MANAGER Justyn Bajwa MD CHEMISTRY ORDERABLES Edited Performing Organization Address [facility] Phone Number INTERFACE SYSTEM Refer to clinic/hospital department * (ABNORMAL) CBC WITH DIFFERENTIAL (04/15/2007 10:10 AM COMMERCIAL PROPERTY MANAGER) WBC 9.3 4.8 - 10.8 K/ul INTERFACE SYSTEM RBC 4.03(L) 4.20 - 5.40 Mil/ul INTERFACE SYSTEM HEMOGLOBIN 11.7(L) 12.0 - 16.0 g/dL INTERFACE SYSTEM HEMATOCRIT 36.3 36.0 - 46.0 % INTERFACE SYSTEM MCV 90.1 84.0 - 103.0 Fl INTERFACE SYSTEM MCH 29.0 27.0 - 34.0 pg INTERFACE SYSTEM MCHC 32.2 30.0 - 35.0 g/dL INTERFACE SYSTEM RDW 13.9 11.0 - 14.5 % INTERFACE SYSTEM PLATELETS 236 140 - 440 K/ul INTERFACE SYSTEM MPV 11.0 8.9 - 12.8 Fl INTERFACE SYSTEM NEUTROPHILS 64.9 42.2 - 75.2 % INTERFACE SYSTEM LYMPHOCYTES 22.5(L) 24.0 - 44.0 % INTERFACE SYSTEM MONOCYTES 9.3 2.0 - 10.0 % INTERFACE SYSTEM EOSINOPHILS 2.8 0.0 - 7.0 % INTERFACE SYSTEM BASOPHILS 0.5 0.0 - 1.0 % INTERFACE SYSTEM NEUTROPHIL ABSOLUTE 6.0 2.0 - 8.0 K/ul INTERFACE SYSTEM LYMPHOCYTE ABSOLUTE 2.1 1.2 - 4.0 K/ul INTERFACE SYSTEM MONOCYTE ABSOLUTE 0.9(H) 0.1 - 0.6 K/ul INTERFACE SYSTEM EOSINOPHIL ABSOLUTE 0.3 0.0 - 0.7 K/ul INTERFACE SYSTEM BASOPHILS ABSOLUTE 0.1 0.0 - 0.2 K/ul INTERFACE SYSTEM 04/15/2007 10:1 0 AM COMMERCIAL PROPERTY MANAGER us Justyn Bajwa MD HEMATOLOGY ORDERABLES Edited INTERFACE SYSTEM Refer to clinic/hospital department documented in this encounter Visit Diagnoses Not on filedocumented in this encounter Care Teams Mergers And Acquisitions Attorney Relationship Specialty Start Date End Date Blossom Barney MD [address] [place] [address] PCP - General Internal Medicine 12/12/18 documented as of this encounter
--- OUTSIDE RECORDS SUMMARY | 2024-12-20 17:44 | XMS_ITS | Encounter Summary ---
Author Organization [facility] Address [address] [place] [address] Care Team Providers Care Digital Marketing Apprentice Name Role Phone Blossom Barney MD Primary Care Provider +1- [phone] Encounter Details Date Type Department Care Team (Latest Contact Info) Description 10/27/2005 Outpatient Historical [facility] Rheumatology- [facility] [address] [place] [address] Mario Cortes MD NO ADDRESS ON FILE Generalized Osteoarthrosis, Involving Multiple Sites (Primary Dx) Social History Tobacco Use Types Packs/Day Years Used Date Smoking Tobacco: Never Assessed Comments Unknown Sex and Gender Information Value Date Recorded Sex Assigned at Not on file Legal Sex Female 3:59 AM EQUAL OPPORTUNITY REPRESENTATIVE Gender Identity Not on file Sexual Orientation Not on file documented as of this encounter Plan of Treatment Not on file documented as of this encounter Visit Diagnoses Diagnosis Generalized osteoarthrosis, involving multiple sites- Primary documented in this encounter Care Teams Digital Marketing Apprentice Relationship Specialty Start Date End Date Blossom Barney MD [address] [place] [address] PCP - General Internal Medicine 12/12/18 documented as of this encounter
--- OUTSIDE RECORDS SUMMARY | 2024-12-20 17:44 | XMS_ITS | Encounter Summary ---
Author Organization [facility] Address [address] [place] [address] Care Team Providers Care Roll Dough Divider Name Role Phone Blossom Barney MD Primary Care Provider +1- [phone] Encounter Details Date Type Department Care Team (Latest Contact Info) Description 12/18/2005 Outpatient Historical [employer] [address] [place] [address] Theo Fuller MD [address] [place] [address] Keloid Scar (Primary Dx) Social History Tobacco Use Types Packs/Day Years Used Date Smoking Tobacco: Never Assessed Comments Unknown Sex and Gender Information Value Date Recorded Sex Assigned at Not on file Legal Sex Female 3:59 AM LINING REPAIRER Gender Identity Not on file Sexual Orientation Not on file documented as of this encounter Plan of Treatment Not on file documented as of this encounter Visit Diagnoses Diagnosis Keloid scar- Primary documented in this encounter Care Teams Roll Dough Divider Relationship Specialty Start Date End Date Blossom Barney MD [address] [place] [id number] PCP - General Internal Medicine 12/12/18 documented as of this encounter
--- OUTSIDE RECORDS SUMMARY | 2024-12-20 17:44 | XMS_ITS | Encounter Summary ---
Author Organization [facility] Address [address] [place] [address] Care Team Providers Care Casino Floorperson Name Role Phone Blossom Barney MD Primary Care Provider +1- [phone] Encounter Details Date Type Department Care Team (Latest Contact Info) Description 11/22/2018 Ancillary Orders [facility] Orthopedics Orthopedic [facility] [address] [place] [phone] Justyn Bajwa MD NO ADDRESS ON FILE Acute pain of left knee Social History Tobacco Use Types Packs/Day Years Used Date Smoking Tobacco: Never Smokeless Tobacco: Never Alcohol Use Standard Drinks/Week Comments No 0 (1 standard drink = 0.6 oz pur e alcohol) Comments No Sex and Gender Information Value Date Recorded Sex Assigned at Not on file Legal Sex Female 3:59 AM COW RIDER Gender Identity Not on file Sexual Orientation Not on file documented as of this encounter Plan of Treatment Not on file documented as of this encounter Visit Diagnoses Diagnosis Acute pain of left knee documented in this encounter Care Teams Casino Floorperson Relationship Specialty Start Date End Date Blossom Barney MD [address] [place] [id number] PCP - General Internal Medicine 12/12/18 documented as of this encounter
--- OUTSIDE RECORDS SUMMARY | 2024-12-20 17:44 | XMS_ITS | Encounter Summary ---
Author Organization [facility] Address [address] [place] [address] Care Team Providers Care Gear Technician Name Role Phone Blossom Barney MD Primary Care Provider +1- [phone] Encounter Details Date Type Department Care Team (Latest Contact Info) Description 11/22/2018 Ancillary Orders [facility] Orthopedics Orthopedic [facility] [address] [place] [phone] Justyn Bajwa MD NO ADDRESS ON FILE Acute pain of left knee Social History Tobacco Use Types Packs/Day Years Used Date Smoking Tobacco: Never Smokeless Tobacco: Never Alcohol Use Standard Drinks/Week Comments No 0 (1 standard drink = 0.6 oz pur e alcohol) Comments No Sex and Gender Information Value Date Recorded Sex Assigned at Not on file Legal Sex Female 3:59 AM 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 There are degenerative changes seen with osteophytes around the lateral margin of the patella. The joint space is mildly narrowed on standing view. No fractures or other acute abnormalities seen. The right knee shows a total knee arthroplasty in satisfactory position. us Justyn Bajwa MD DIAGNOSTIC IMAGING ORDERABLE S Final Result documented in this encounter Visit Diagnoses Diagnosis Acute pain of left knee Acute pain of left knee documented in this encounter Care Teams Gear Technician Relationship Specialty Start Date End Date Blossom Barney MD [address] [place] [address] PCP - General Internal Medicine 12/12/18 documented as of this encounter
--- OUTSIDE RECORDS SUMMARY | 2024-12-20 17:45 | XMS_ITS | Encounter Summary ---
Author Organization [facility] Address [address] [place] [address] Care Team Providers Care Associate Loan Officer Name Role Phone Blossom Barney MD Primary Care Provider +1- [phone] Reason for Referral * Radiology Services (Routine) - Closed Specialty Diagnoses / Procedures Referred By Rojelio coleman Referred To Contact Orthopedic Surgery Diagnoses Hip pain, left Procedures US GUIDE NEEDLE PLACEMENT Tony Feldman MD Phone: tel: fax: [facility] [address] [address] Phone: tel: fax: Referral ID Status Reason Start Date Expiration Date Visits Requested Visits Authorized [id number] Closed Ordering Department To Schedule 09/21/2018 10/22/2019 1 1 Encounter Details Date Type Department Care Team (Late st Contact Info) Description 09/21/2018 Ancillary Orders [address] [address] Tony Feldman MD [address] [place] [address] Hip pain, left Social History Tobacco Use Types Packs/Day Years Used Date Smoking Tobacco: Never Smokeless Tobacco: Never Alcohol Use Standard Drinks/Week Comments No 0 (1 standard drink = 0.6 oz pur e alcohol) Comments No Sex and Gender Information Value Date Recorded Sex Assigned at Not on file 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 The area was then cleaned with Betadine in a sterile fashion and a 3.5 inch, 20-gauge needle was then inserted and 5 cc of lidocaine was injected as the needle was advanced under ultrasound guidance to the femoral neck/head. The syringe was then switched out and 1 mL of Depo-Medrol 80 mg and 6 cc of 1% lidocaine was injected into the space with good distention of the joint capsule visualized. The needle was withdrawn and an adhesive bandage was placed. The patient tolerated the procedure well and hemostasis was achieved. us Tony Feldman MD US ORDERABLES Final Result documented in this encounter Visit Diagnoses Diagnosis Hip pain, left Pain in joint, pelvic region and thigh Hip pain, left Pain in joint, pelvic region and thigh documented in this encounter Care Teams Associate Loan Officer Relationship Specialty Start Date End Date Blossom Barney MD [address] [place] [address] PCP - General Internal Medicine 12/12/18 documented as of this encounter
--- OUTSIDE RECORDS SUMMARY | 2024-12-20 17:45 | XMS_ITS | Clinical Summary ---
Author Organization [facility] Address [address] [place] [address] Care Team Providers Care Senior Accountant Analyst Name Role Phone Blossom Barney MD Primary Care Provider +1- [phone] Allergies Active Allergy Reactions Criticality Noted Date Comments Diclofenac Sodium Rash Low 09/16/2010 Homeopathic Products Itching Low 11/26/2008 Latex Rash Low 09/16/2010 Morphine Nausea and Vomiting Low 09/30/2018 Naproxen Rash Low 09/16/2010 Penicillins Rash Low 09/16/2010 Sulfa (Sulfonamide Antibiotics) Rash Low 08/29 Medications mupirocin (BACTROBAN) 2 % Ointment APPLY OINTMENT TOPICALLY TO AFFECTED AREA TWICE DAILY 0 Active blood sugar diagnostic (FreeStyle Lite Strips) Strip USE 1 STRIP TO CHECK GLUCOSE THREE TIMES DAILY (DX E11.9) 9 Active diclofenac sodium (VOLTAREN) 1 % gel APPLY 2 GRAMS FOUR TIMES DAILY NEEDED FOR JOINT PAIN 1 9 Active HYDROcodone-ashish taminophen (NORCO) 10-325 mg Tablet Take 1 Tablet by mouth 4 times daily as needed. 0 Active Miscellaneous Medical Supply wheelchair. 1 Each 0 9 Active insulin aspart (NovoLOG) 100 unit/mL injection Inject 20 Units by subcutaneous injection 3 times daily with meals. 9 Active colchicine (COLCRYS) 0.6 mg tablet Take 0.6 mg by mouth 2 times daily. 9 Active OTHER Take 1 Tablet by mouth 2 times daily. PROBIOTIC 9 Active tofacitinib (XELJANZ) 5 mg Tablet Take 5 mg by mouth 2 times daily. 9 Active tiZANidine (ZANAFLEX) 4 mg Capsule Take 4 mg by mouth every 8 hours as needed for Spasm. 9 Active gabapentin (NEURONTIN) 100 mg capsule Take 100 mg by mouth 3 times daily. 1 Active predniSONE (DELTASONE) 10 mg tablet Take 10 mg by mouth daily. 1 Active adalimumab (HUMIRA) 40 mg/0.8 mL Syringe Kit Inject by subcutaneous injection. 1 Active allopurinoL (ZYLOPRIM) 100 mg tablet Take 100 mg by mouth 2 times daily . 9 Active insulin degludec (TRESIBA FLEXTOUCH U-100 SUBCUT) Inject 45 Units by subcutaneous injection daily before breakfast . 9 Active metoprolol tartrate (LOPRESSOR) 50 mg tablet Take 50 mg by mouth 2 times daily. 9 Active losartan (COZAAR) 100 mg tablet Take 100 mg by mouth daily. 6 Active pravastatin (PRAVACHOL) 20 mg tablet Take 20 mg by mouth daily at bedtime. 6 Active DULoxetine (CYMBALTA) 60 mg Capsule, Delayed Release(E.C.) Take 60 mg by mouth daily at bedtime . 6 Active Active Problems Problem Noted Date Diagnosed Date Status post total hip replacement, left 08/07/19 Status post reverse total replacement of right sandrita shane 04/18/2019 Obstructive sleep apnea 04/06/2019 Obesity (BMI 30.0-34.9) 04/06/2019 Rheumatoid arthritis involving left hip 12/26/19 19 Dyslipidemia 12/12/2018 Gout 12/12/2018 Essential hypertension 12/12/2018 Type 2 diabetes mellitus wit hout complication, with long-term current use of insulin 12/12/2018 Elevated serum creatinine 12/12/2018 Anemia 12/12/2018 Hyperkalemia 12/12/2018 Leukocytosis (leucocytosis) 12/12/2018 Thrombocytosis 12/12/2018 Resolved Problems Problem Noted Date Diagnosed Date Resolved Date Primary osteoarthritis of left hip 12/25/2018 12/25/2018 Preoperative general physical examination 12/12/2018 04/18/2019 Primary osteoarthritis of right shoulder 08/22/2018 04/18/2019 Osteoarthritis of left hip 06/09/2018 0 12/25/2018 Family History Medical History Relation Name Comments Respiratory Disease Father Hypertension Mother Stroke Mother Diabetes Sister 1 Heart Disease Sister 2 Breast Cancer Sister 3 Stroke Sister 3 Relation Name Status Comments Father Mother Sister 1 Sister 2 Sister 3 Alive Social History Tobacco Use Types Packs/Day Years Used Date Smoking Tobacco: Never Smokeless Tobacco: Never Alcohol Use Standard Drinks/Week Comments No 0 (1 standard drink = 0.6 oz pur e alcohol) Comments Unknown Sex and Gender Information Value Date Recorded Sex Assigned at Not on file Legal Sex Female 12:19 PM CITY DISPATCHER Gender Identity Not on file Sexual Orientation Not on file Last Filed Vital Signs Vital Sign Reading Time Taken Comments Blood Pressure 168/90 11/06/2020 11:20 AM CDT Pulse 74 11/06/2020 11:20 AM CDT Temperature 37 C (98.6 F) 04/19/2019 8:33 AM CITY DISPATCHER Respiratory Rate 17 04/19/2019 8:33 AM CITY DISPATCHER Oxygen Saturation - - Inhaled Oxygen Concentration - - Weight 96.2 kg (212 lb) 11/06/2020 11:20 AM CDT Height 165.1 cm (5' 5 ) 11/06/2020 11:20 AM CDT Body Mass Index 35.28 11/06/2020 11:20 AM CDT Plan of Treatment Health Maintenance Due Date Last Done Comments DIABETES ANNUAL FOOT EXAM 1962 DIABETES MICROALBUMIN ANNUAL SCREEN 1962 LDL CHOLESTEROL ANNUAL 1962 DTAP/TDAP/TD VACCINES (1 - Tdap) 11/15/1963 PNEUMOCOCCAL VACCINE 50+ YEA RS (1 of 2 - PCV) 11/15/1963 ZOSTER VACCINE (1 of 2) 1994 DIABETES ANNUAL RETINAL EXAM 03/10/2001 03/10/2000 OSTEOPOROSIS SCREENING 2009 DIABETES HBA1C Q 6 MONTHS 06/14/2019 12/12/2018, RSV VACCINE (60+ or ) (1 - 1-dose 75+ series) 11/15/2019 INFLUENZA VACCINE (#1) 2024 Medical Devices Implanted Type Area Physical Therapy Coordinator Device Identifier Shelf Expiration Date Model / Serial / Lot Cup Pinn Sctr Grptn 52mm 1217-32-052 - [id number] Implanted:Qty: 1 on 12/26/2018 by Justyn Bajwa MD Hip Left: Hip [employer] 10/28/2028 1217-32-052 / / [id number] Head Fem Art/Kevin Cer Sz36 1365-36-310 - [id number] Implanted:Qty: 1 on 12/26/2018 by Justyn Bajwa MD Hip Left: Hip [employer] 09/28/2023 1365-36-310 / / [id number] Liner Pinn Altrx Poly 1221-36-052 - [id number] Implanted:Qty: 1 on 12/26/2018 by Justyn Bajwa MD Hip Left: Hip [employer] 10/29/2023 [id number] / / [id number] Stem Fem Actis Colr Std Sz6 1010-11-060 - [id number] Implanted:Qty: 1 on 12/26/2018 by Justyn Bajwa MD Hip Left: Hip [employer] 10/28/2028 1010-11-060 / / [id number] Wrist Lcp Fusion 02.110.151 - [id number] Implanted:Qty: 1 on 10/06/2018 by Justyn Mahmood MD Plate Right: Wrist SYNTHES STRATEC 02.110.151 / / LOAD# [id number] Screw St Loc 2.7x12mm 202.212 - [id number] Implanted:Qty: 1 on 10/06/2018 by Justyn Mahmood MD Screw Right: Wrist SYNTHES STRATEC 202.212 / / LOAD# [id number] Screw St Loc 2.7x14mm 202.214 - [id number] Implanted:Qty: 1 on 10/06/2018 by Justyn Mahmood MD Screw Right: Wrist SYNTHES [employer]ATEC 202.214 / / LOAD# [id number] Screw St Loc 2.7x18mm 202.218 - [id number] Implanted:Qty: 1 on 10/06/2018 by Justyn Mahmood MD Screw Right: Wrist SYNTHES STRATEC 202.218 / / LOAD# [id number] Screw St Loc Stdrv 3.5x16mm 212.104 - [id number] Implanted:Qty: 1 on 10/06/2018 by Justyn Mahmood MD Screw Right: Wrist SYN[employer]ES [employer]ATEC 212.104 / / LOAD# [id number] Screw St Loc Stdrv 3.5x18mm 212.105 - [id number] Implanted:Qty: 1 on 10/06/2018 by Justyn Mahmood MD Screw Right: Wrist SYNTHES [employer]ATEC 212.105 / / LOAD# [id number] Screw St Loc Stdrv 3.5x22mm 212.107 - [id number] Implanted:Qty: 1 on 10/06/2018 by Justyn Mahmood MD Screw Right: Wrist SYNTHES [employer]ATEC 212.107 / / LOAD# [id number] Screw St Stdrv 3.5x18mm 02.200.018 - [id number] Implanted:Qty: 1 on 10/06/2018 by Justyn Mahmood MD Screw Right: Wrist SYNTHES-STRATEC- MAXIFACIAL 02.200.018 / / LOAD# [id number] Screw Canc 6.5x20mm 117220-000 - [id number] Implanted:Qty: 1 on 12/26/2018 by Justyn Bajwa MD Screw Left: Hip [employer] 08/28/2028 [id number] / / [id number] Screw Canc 6.5x25mm 1172--000 - [id number] Implanted:Qty: 1 on 12/26/2018 by Justyn Bajwa MD Screw Left: Hip [employer] 09/27/2028 [id number] / / [id number] Screw Glenoid Baseplate 5x38mm Cxa890 - [id number] Implanted:Qty: 1 on 04/18/2019 by Manny Castle MD Screw Right: Shoulder [employer] 04/29/2020 MAR396 / / LOAD [id number] Screw Glenoid Baseplate 6.5x30mm Nih637 - [id number] Implanted:Qty: 1 on 04/18/2019 by Manny Castle MD Screw Right: Shoulder [employer] 04/29/2020 [id number] / / LOAD [id number] Screw Mirta Ns 5x18mm Aqls Dki997 - [id number] Implanted:Qty: 1 on 04/18/2019 by Manny Castle MD Screw Right: Shoulder [employer] 04/29/2020 [id number] / / LOAD [id number] Screw Mirta Ns 5x18mm Aqls Ygp649 - [id number] Implanted:Qty: 1 on 04/18/2019 by Manny Castle MD Screw Right: Shoulder [employer] 04/29/2020 [id number] / / LOAD [id number] Glenosphere Rvrs Shldr 39mm Jne069 - [id number] Implanted:Qty: 1 on 04/18/2019 by Manny Castle MD Shoulder Right: Shoulder [employer]osm [employer] 08/04/2023 [id number] / / [id number] Insert Hum Ascnd Flx Rvrs +6 39mm Hvz767n - [id number] Implanted:Qty: 1 on 04/18/2019 by Manny Castle MD Shoulder Right: Shoulder [employer] 11/17/2023 [id number] / / [id number] Stem Hum Ascnd Flx Ptc Std Sz4b Odh515k - [id number] Implanted:Qty: 1 on 04/18/2019 by Manny Castle MD Shoulder Right: Shoulder [employer] INC 01/17/2024 [id number] / / [id number] Tray Hum Ascnd Flx Ecc Rev 40d Oam170 - [id number] Implanted:Qty: 1 on 04/18/2019 by Manny Castle MD Shoulder Right: Shoulder [employer] 12/17/2023 [id number] / [id number] / [id number] Putty Dbx Dbm 2.5cc 45114 - [id number] Implanted:Qty: 1 on 10/06/2018 by Justyn Mahmood MD Tissue Right: Wrist MUSCULOSKELETAL TRANSPLANT FOU 04/19/2019 [id number] / [id number] / 2019-04-19 Bsplt Glnod Aqls +3 25mm Implanted:Qty: 1 on 04/18/2019 by Manny Castle MD Right: Shoulder [employer] 02/24/2024 UCY779 / / [id number] Procedures Procedure Name Priority Date/Time Associated Diagnosis Comments HEMOGLOBIN A1C Routine 12/12/2018 11:48 AM CDT from Last 3 Months or Most Recently Relevant to Health Maintenance Results * (ABNORMAL) HEMOGLOBIN A1C (12/12/2018 11:48 AM CDT) HEMOGLOBIN A1C 6.2(H) See comment % 12/12/2018 12:[address] [facility] EST. AVG GLUCOSE, A1C 131 mg/dL 12/12/2018 12:17 PM CDT [facility] Blood Venipuncture / Unknown 12/12/2018 11:48 AM CDT 12/12/2018 11:59 AM CDT Narrative [facility] - 12/12/2018 12:17 PM CDT HGB A1C INTERPRETATION NORMAL: <5.7% PRE-DIABETES: 5.7 - 6.4% DIABETES: 6.5% OR GREATER us Deniz Vo MD CHEMISTRY ORDERABLES Final Resu lt [facility] #[id number] [address] [place] [address] [facility] #[id number] [address] [place] [address] from Last 3 Months or Most Recently Relevant to Health Maintenance Insurance MEDICARE PART A AND B [facility] SUPP * Guarantor: [employer] Account Type Relation to Patient Date of Phone Billing Address Personal/Family [address] [facility] [address] [place] [address] RX [employer] Medicare Part D RX [employer] (INTERNAL) [facility] Care Teams Senior Accountant Analyst Relationship Specialty Start Date End Date Blossom Barney MD [address] [place] [address] PCP - General 09/13/20
--- OUTSIDE RECORDS SUMMARY | 2024-12-20 17:45 | XMS_ITS | Encounter Summary ---
Author Organization [facility] Address [address] [place] [address] Care Team Providers Care Load Test Mechanic Name Role Phone Blossom Barney MD Primary Care Provider +1- [phone] Encounter Details Date Type Department Care Team (Late st Contact Info) Description 06/09/2018 Ancillary Orders [facility] Orthopedics - Orthopedic [facility] [address] [place] [phone] [facility], External Provider [address] [place], [place] [address] Pain Social History Tobacco Use Types Packs/Day Years Used Date Smoking Tobacco: Never Smokeless Tobacco: Never Alcohol Use Standard Drinks/Week Comments No 0 (1 standard drink = 0.6 oz pur e alcohol) Comments No Sex and Gender Information Value Date Recorded Sex Assigned at Not on file Legal Sex Female 3:59 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 us External Provider [facility] DIAGNOSTIC IMAGING ORDERAB LES Final Result * XR PRIOR STUDY (04/07/2018 12:00 PM MACHINE GUN MECHANIC) Narrative 06/09/2018 11:58 AM MACHINE GUN MECHANIC This exam was auto finalized to allow images to be scanned to PACS. us External Provider [facility] DIAGNOSTIC IMAGING ORDERAB LES Final Result * MRI PRIOR STUDY (08/27/2017 12:00 PM CDT) Narrative 06/09/2018 11:57 AM MACHINE GUN MECHANIC This exam was auto finalized to allow images to be scanned to PACS. us External Provider [facility] MR ORDERABLES Final Resu lt documented in this encounter Visit Diagnoses Diagnosis Pain Generalized pain Pain Generalized pain Pain Generalized pain Pain Generalized pain documented in this encounter Care Teams Load Test Mechanic Relationship Specialty Start Date End Date Blossom Barney MD [address] [place] [address] PCP - General Internal Medicine 12/12/18 documented as of this encounter
--- OUTSIDE RECORDS SUMMARY | 2024-12-20 17:45 | XMS_ITS | Encounter Summary ---
Author Organization [facility] Address [address] [place] [address] Care Team Providers Care Culvert Installer Name Role Phone Blossom Barney MD Primary Care Provider +1- [phone] Encounter Details Date Type Department Care Team (Late st Contact Info) Description 06/15/2007 Outpatient Historical [facility] Orthopedics- [address] [place] [phone] Justyn Bajwa MD NO ADDRESS ON FILE Social History Tobacco Use Types Packs/Day Years Used Date Smoking Tobacco: Never Assessed Comments Unknown Sex and Gender Information Value Date Recorded Sex Assigned at Not on file Legal Sex Female 3:59 AM WEARING APPAREL SHAKER Gender Identity Not on file Sexual Orientation Not on file documented as of this encounter Plan of Treatment Not on file documented as of this encounter Visit Diagnoses Not on filedocumented in this encounter Care Teams Culvert Installer Relationship Specialty Start Date End Date Blossom Barney MD [address] [place] [address] PCP - General Internal Medicine 12/12/18 documented as of this encounter
--- OUTSIDE RECORDS SUMMARY | 2024-12-20 17:45 | XMS_ITS | Encounter Summary ---
Author Organization [facility] Address [address] [place] [address] Care Team Providers Care Accountant Property Name Role Phone Blossom Barney MD Primary Care Provider +1- [phone] Encounter Details Date Type Department Care Team (Late st Contact Info) Description 08/15/2018 Ancillary Orders [facility] [address] 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 External Provider [facility] MR ORDERABLES Final Resu lt documented in this encounter Visit Diagnoses Diagnosis Pain Generalized pain Pain Generalized pain documented in this encounter Care Teams Accountant Property Relationship Specialty Start Date End Date Blossom Barney MD [address] [place] [address] PCP - General Internal Medicine 7/15/19 documented as of this encounter
--- OUTSIDE RECORDS SUMMARY | 2024-12-20 17:45 | XMS_ITS | Encounter Summary ---
Author Organization [facility] Address [address] [place] [address] Care Team Providers Care Processing Technologist Name Role Phone Blossom Barney MD Primary Care Provider [phone] Encounter Details Date Type Department Care Team (Late st Contact Info) Description 07/28/2007 Outpatient Historical [facility] [place] [id number] Justyn Bajwa MD NO ADDRESS ON FILE Social History Tobacco Use Types Packs/Day Years Used Date Smoking Tobacco: Never Assessed Comments Unknown Sex and Gender Information Value Date Recorded Sex Assigned at Not on file Legal Sex Female 3:59 AM TELECOMMUNICATIONS ENGINEER Gender Identity Not on file Sexual Orientation Not on file documented as of this encounter Progress Notes * Justyn Bajwa - 07/28/2007 12:00 AM CST Patient Name: Adina Gracia DOS: 07/28/2007 : 1945 For additional information regarding past medical history, present medications, allergies, completereview of systems, past surgical history, family history, and social history, please refer to the Orthopedic History form completed by the patient which I have reviewed in detail this date. \par SUBJECTIVE: Ms. Gracia is seen in follow up for her left total knee. She is 3 months out. She is doing much better than when we saw her last. She has been through a course of physical therapy andhas been released to a home exercise program. She has a functional range of motion and is getting around fairly well. She is bothered by her slight lack of extension. She notices that when walking. PAST SURGICAL HISTORY: 1. Appendectomy. 2. Hysterectomy. 3. Hernia (? - illegible) 4. Right knee arthroscopies - 1989 and 1990. 5. Bilateral carpal tunnel release. 6. Shoulder surgery. 7. Right and left thumb surgeries. 8. Right total knee arthroplasty 04/26/2007. \par PHYSICAL EXAM: CONSTITUTIONAL:The patient is a pleasant female in no acute distress. PSYCH:The patient is alert and oriented to person, place and time. SKIN:Skin is of normal color and texture. MUSCULOSKELETAL: The left knee shows a well-healed surgical incision. Right in the mid portion of the incision, there is a small area where she feels a foreign body and it appears that it is a knot in the subcutaneous space beneath the scar. I disinfected the area with alcohol and tried to grasp itwith a forceps, and while it feels like it is a suture, I could not extract it from the wound. I asked her to just clean that area, and if it becomes more prominent, either call us or snip it off with a sterilized scissor. Her range of motion shows that she lacks about 5 degrees of extension. It isslightly springy at its endpoint. Her flexion is intact to 110 degrees. There is no significant collateral ligament laxity. No peripheral edema is seen. Yesica sign is negative. \par RADIOGRAPHIC FINDINGS: X-rays were not obtained in the clinic today. \par IMPRESSION: Status post left total knee arthroplasty, improved. \par PLAN: I asked to see her back in 6 to 8 weeks. It sounds like she is being diligent with her home exercises and we reviewed those to work on reducing her slight flexion contracture. If it improves at all, I think it is going to be satisfactory and difficult to improve on, but if it were to worsen, we may need to consider arthroscopy and manipulation. Justyn Bajwa M.D. [facility] Electronically Signed by Justyn Bajwa M.D. 08/02/2007 10:17 , P, dmjared Job #: Document #: [id number] cc: COMMUNICATIONS ENGINEER documented in this encounter Plan of Treatment Not on file documented as of this encounter Visit Diagnoses Not on filedocumented in this encounter Care Teams Processing Technologist Relationship Specialty Start Date End Date Blossom Barney MD [address] [place] [place] [address] PCP - General Internal Medicine 12/12/18 documented as of this encounter
--- OUTSIDE RECORDS SUMMARY | 2024-12-20 17:45 | XMS_ITS | Encounter Summary ---
Author Organization [employer] [facility] Address [address] [facility] [address] [place] [address] Phone Care Team Providers Care Contract Administration Manager Name Role Phone Blossom Barney MD Primary Care Provider [phone] Encounter Details Date Type Department Care Team (Late st Contact Info) Description 04/11/2024 Orders Only [facility] [address] [facility] [address] [place] [address] Chronic kidney disease stage 3B (HCC) Social History Tobacco Use Types Packs/Day Years Used Date Smoking Tobacco: Never Assessed Comments Unknown Sex and Gender Information Value Date Recorded Sex Assigned at Not on file Legal Sex Female 11:37 AM EST Gender Identity Not on file Sexual Orientation Not on file documented as of this encounter Plan of Treatment Upcoming Encounters Date Type Department Care Team (Late st Contact Info) Description 01/23/2025 11:20 AM CDT Office Visit [facility] [address] [place] [address] Cassi Patton MD [address] [facility] [address] [place] [address] documented as of this encounter Visit Diagnoses Diagnosis Chronic kidney disease stage 3B (HCC) documented in this encounter Care Teams Contract Administration Manager Relationship Specialty Start Date End Date Blossom Barney MD [address] [place], [place] [id number] PCP - General Internal Medicine 04/11/24 documented as of this encounter
--- OUTSIDE RECORDS SUMMARY | 2024-12-20 17:45 | XMS_ITS | Clinical Summary ---
Author Organization [facility] Facility Address [address] [place] [address] Care Team Providers Care Manager Operations Name Role Phone Blossom Barney MD Primary Care Provider [phone] Allergies Active Allergy Reactions Criticality Noted Date Comments Diclofenac Rash Medium 09/16/2010 Homeopathic Products Itching Low 11/26/2008 Latex Rash Medium 09/16/2010 Morphine Nausea And Vomiting Low 09/30/2018 Naproxen Rash Low 09/16/2010 Penicillins Hives,Rash Medium 09/16/2010 Sulfa Antibiotics Rash Medium 09/16/2010 Medications Tofacitinib Citrate (Xeljanz) 5 MG tablet 2 (two) times a day Active tiZANidine (ZANAFLEX) 4 MG tablet Take 4 mg by mouth every 6 (six) to 8 (eight) hours if needed Active predniSONE (DELTASONE) 10 MG tablet Take 10 mg by mouth in the morning. 1 Active pravastatin (PRAVACHOL) 20 MG tablet Take 20 mg by mouth 6 Active oxyCODONE-acet aminophen (PERCOCET) 10-325 MG per tablet every 4 (four) hours 9 Active oxyCODONE (ROXICODONE) 20 MG immediate release tablet 1/2 TO 1 TAB EVERY 4 TO 6 HOURS NEEDED FOR PAIN MAX 2 IN 24 HOURS.HOLD WITHIN 4 HOURS OF SLEEP 4 Active mupirocin (BACTROBAN) 2 % ointment 4 Active metoprolol tartrate (LOPRESSOR) 50 MG tablet Take 50 mg by mouth in the morning and 50 mg in the evening. Active metFORMIN (GLUCOPHAGE) 500 MG tablet Take 500 mg by mouth in the morning and 500 mg in the evening. Take with meals. Active losartan (COZAAR) 100 MG tablet Take 100 mg by mouth in the morning. 6 Active Lactobacillus Reuteri chewable tablet 2 times daily. Activ e insulin lispro protamine-insu sera lispro (HumaLOG 50-50) (50-50) 100 UNIT/ML injection 18 UNITS - INJECT SUBCUTANEOUSLY 3 TIMES DAILY Active Tresiba FlexTouch 100 UNIT/ML injection INJECT 60 UNIT SUBCUTANEOUSLY ONCE A DAY Active Fiasp FlexTouch 100 UNIT/ML solution pen-injector 4 Active Insulin Aspart (NovoLOG) 100 UNIT/ML solution Inject 20 Units under the skin 8 Active HYDROcodone-ac etaminophen (LORCET PLUS) 10-325 MG per tablet Take 1 tablet by mouth every 6 (six) hours if needed 0 Active gabapentin (NEURONTIN) 300 MG capsule Take 300 mg by mouth in the morning and 300 mg in the evening and 300 mg before bedtime. 4 Active DULoxetine (CYMBALTA) [address] capsule Take 60 mg by mouth 1 (one) time each day 4 Active doxycycline (VIBRAMYCIN) 100 MG capsule Take 100 mg by mouth in the morning and 100 mg in the evening. 4 Active colchicine 0.6 MG tablet Take 0.6 mg by mouth in the morning and 0.6 mg in the evening. 9 Active clobetasol (TEMOVATE) 0.05 % cream PLEASE SEE ATTACHED FOR DETAILED DIRECTIONS 4 Active cholestyramine (QUESTRAN) 4 GM/DOSE powder 4 Active Calcium Carb-Cholecalc iferol 600-20 MG-MCG tablet Take by mouth Ac tive aspirin (ST VINCENT) 81 MG EC tablet Take 81 mg by mouth in the morning and 81 mg in the evening. 9 Active amLODIPine (NORVASC) 10 MG tablet Take 10 mg by mouth 1 (one) time each day 4 Active allopurinol (ZYLOPRIM) 100 MG tablet Take 100 mg by mouth in the morning and 100 mg in the evening. 8 Active adalimumab (HUMIRA) 40 MG/0.8ML Prefilled Syringe Kit Inject 40 mg under the skin 1 Active mupirocin (BACTROBAN) 2 % ointment APPLY OINTMENT TOPICALLY TO AFFECTED AREA TWICE DAILY 0 Active Insulin Degludec (TRESIBA FLEXTOUCH SC) Inject 45 Units under the skin in the morning. 9 Active DULoxetine (CYMBALTA) [address] capsule Take 60 mg by mouth 1 (one) time each day 6 Active Diclofenac Sodium 1 % gel APPLY 2 GRAMS FOUR TIMES DAILY NEEDED FOR JOINT PAIN 9 Active Calcium-Vitami n D (CALTRATE 600 PLUS-VIT D PO) Take by mouth Active Encounters Date Type Department Care Team Description 12/08/2024 Documentation Only [facility] [address] [place] [address] Cecilio Arenas 12/08/2024 Documentation Only [facility] [address] [place] [address] Cecilio Arenas from Last 3 Months Family History Medical History Relation Comments Hypertension Mother Stroke Mother Cancer Sister Diabetes Sister Heart disease Sister Stroke Sister Relation Status Comments Father Mother Sister Social History Tobacco Use Types Packs/Day Years Used Date Smoking Tobacco: Never Smokeless Tobacco: Never Tobacco Cessation:Counseling Given: Not Answered Alcohol Use Standard Drinks/Week Comments Not Currently 0 (1 standard drink = 0.6 oz pur e alcohol) Comments Unknown Sex and Gender Information Value Date Recorded Sex Assigned at Not on file Legal Sex Female 11:37 AM EST Gender Identity Not on file Sexual Orientation Not on file Plan of Treatment Upcoming Encounters Date Type Department Care Team (Late st Contact Info) Description 01/23/2025 11:20 AM CDT Office Visit [facility] [address] [place] [address] Cassi Patton MD [address] [place] [address] Health Maintenance Due Date Last Done Comments Pneumococcal Vaccine: 50+ Ye ars (1 of 2 - PCV) 11/15/1964 Diabetes: Hemoglobin A1C 04/24/2024 12/12/2018 Diabetes: Ophthalmology Exam 04/24/2024 Diabetes: Pedal Pulse Checked 04/24/2024 Diabetes: Sensory Foot Exam 04/24/2024 Diabetes: Visual Foot Exam 04/24/2024 Influenza Vaccine (#1) 2025 Hepatitis B Vaccine Aged Out No longe r eligible based on patient's age to complete this topic Procedures Procedure Name Priority Date/Time Associated Diagnosis Comments IRON AND TIBC Routine 12/07/2024 from Last 3 Months Results * Iron and TIBC (12/07/2024) Iron Binding Capacity 216 UIBC 188 Iron 28 UG/DL Iron Saturation (TSat) 13% 12/07/2024 Narrative DeepaCecilio - 12/08/2024 4:56 PM CDT [facility] Historical Provider LAB BLOOD ORDERABLES Edelmira l Result from Last 3 Months Insurance Medicare Care Teams Manager Operations Relationship Specialty Start Date End Date Blossom Barney MD [address] [place] [id number] PCP - General Internal Medicine 04/11/24
--- OUTSIDE RECORDS SUMMARY | 2024-12-20 17:45 | XMS_ITS | Patient Health Record ---
Author Organization [facility] Address [address] [place] [address] Care Team Providers Care Battalion Chief Name Role Phone Blossom Barney MD Primary Care Provider Unavailab Art Rashid Unavailable [phone] Vane NOEL, [facility] Unavailable Unavailable Reason For Referral No Information Medications Medication SIG (Take, Route, Frequency, Duration) Notes Start Date End Date Status Colchicine 0.6 MG Tablet 1 tablet Orally BID Active tiZANidine HCl 4 MG Tablet 1 tablet as needed spasms Orally Three times a day Active Diclofenac Sodium 1 % Gel as directed Externally PRN QID apply 2 grams QID PRN joint pain Active Tresiba FlexTouch 100 UNIT/ML Solution Pen-injector 60 units as directed Subcutaneous daily before breakfast Active DULoxetine HCl 60 MG Capsule Delayed Release Particles 1 capsule Orally Once a day Active Xeljanz 5 MG Tablet 1 tablet Orally Twic e a day Active HYDROcodone-Acetamin ophen 10-325 MG Tablet 1 tablet as needed Orally every 6 hrs Active predniSONE 5 MG Tablet 1 tablet Orally Once a day Active Mupirocin 2 % Ointment 1 application Externally BID to affected area Active Aspirin 81 81 MG Tablet Delayed Release 1 tablet Orally Once a day Active oxyCODONE-Acetaminop hen 10-325 MG Tablet 1-2 tablet as needed Orally every 4 hrs max daily amount 6 tablets Active Calcium + D every HS po Active Pravastatin Sodium 20 MG Tablet 1 tablet Orally Once a day Active Allopurinol 100 MG Tablet 1 tablet Orally Once a day Active Insulin Aspart 100 UNIT/ML Solution as directed Subcutaneous TID with meals 20 units SC TID with meals Active Losartan Potassium 100 MG Tablet 1 tablet Orally Once a day Active metFORMIN HCl 500 MG Tablet 1 tablet with a meal Orally BID Active Metoprolol Tartrate 50 MG Tablet 1 tablet with food Orally Twice a day Active Social History Tobacco Use: Social History Observation Description Date Details (start date - stop date) Never Smoker NA - NA Social History Drugs/Alcohol: Social Info Question Answer Notes Alcohol Screen (Audit-C) Did you have a drink containing alcohol in the past year? No Points 0 Interpretation Negative Tobacco Use: Social Info Question Answer Notes xTobacco Use/Smoking Are you a nonsmoker Additional Details Category Social Info Options Details Drugs/Alcohol: Do you drink alcohol? No Problems Problem Type SNOMED Code ICD Code Onset Dates Problem Status W/U Status Risk Notes Problem Rheumatoid arthritis (23785807) Rheumatoid arthritis with rheumatoid factor of right hand without organ or systems involvement (M05.741) Active confirmed Problem Rheumatoid arthritis (02274014) Rheumatoid arthritis with rheumatoid factor of left hand without organ or systems involvement (M05.742) Active confirmed Problem Anemia of chronic disorder (927363165) Anemia in chronic illness (D63.8) Active confirmed Plan Of Treatment No Information Insurance Providers Payer Name Payer Address Payer Phone Subscriber Number Group Number Insured Name Patient Relationship to Insured Coverage Start Date Coverage End Date [place] [address] [phone] [id number] [id number] Adina Gracia Self - patient is the insured [address] [phone] [id number] Adina Gracia Self - patient is the insured [facility] [address] [place] [phone] [id number] Adina Gracia Self - patient is the insured Medical (General) History Medical History History ICD Code arthritis anemia DM hernia transfusions HTN Bronchitis IBS osteoporosis sleep apnea Surgical History Surgery Date(Month/Year) Hernia in 2018 Hip replacement in 2006 Knee in 2011 Ankle replacement in 2019 Shoulder replacement in 2017 complete hysterectomy in 1973 Hospitalization History Reason Date(Month/Year) see surgical hx
--- OUTSIDE RECORDS SUMMARY | 2024-12-20 17:45 | XMS_ITS | Encounter Summary ---
Author Organization [facility] Address [address] [place] [address] Care Team Providers Care Long Term Name Role Phone Blossom Barney MD Primary Care Provider [phone] Reason for Referral * Radiology Services (Routine) - Closed Specialty Diagnoses / Procedures Referred By Rojelio coleman Referred To Contact Orthopedic Surgery Diagnoses Hip pain, right Procedures US GUIDE NEEDLE PLACEMENT Tony Feldman MD Phone: tel: fax: [facility] [address] [place] [address] Phone: tel: fax: Referral ID Status Reason Start Date Expiration Date Visits Requested Visits Authorized [id number] Closed Ordering Department To Schedule 06/22/2018 07/23/2019 1 1 TORCH OPERATOR Encounter Details Date Type Department Care Team (Late st Contact Info) Description 06/22/2018 Ancillary Orders [address] [place] [address] Tony Feldman MD [address] [place] [address] Hip pain, right Social History Tobacco Use Types Packs/Day Years Used Date Smoking Tobacco: Never Smokeless Tobacco: Never Alcohol Use Standard Drinks/Week Comments No 0 (1 standard drink = 0.6 oz pur e alcohol) Comments No Sex and Gender Information Value Date Recorded Sex Assigned at Not on file Legal Sex Female 3:59 AM BLOW TORCH OPERATOR Gender Identity Not on file Sexual Orientation Not on file documented as of this encounter Plan of Treatment Not on file documented as of this encounter Results * US GUIDE NEEDLE PLACEMENT (06/23/2018 9:17 AM BLOW TORCH OPERATOR) Anatomical Region Laterality Modality Ultrasound Narrative 06/27/2018 10:57 AM BLOW TORCH OPERATOR The anatomy was visualized under ultrasound. The [...] this encounter Visit Diagnoses Diagnosis Hip pain, right Pain in joint, pelvic region and thigh Hip pain, right Pain in joint, pelvic region and thigh documented in this encounter Care Teams Long Term Relationship Specialty Start Date End Date Blossom Barney MD [address] [place] [address] PCP - General Internal Medicine 12/12/18 documented as of this encounter
--- OUTSIDE RECORDS SUMMARY | 2024-12-20 17:45 | XMS_ITS | Clinical Summary ---
Author Organization [facility] [place] Address [address] [place] [address] Care Team Providers Care Motion Picture Set Grip Name Role Phone Blossom Barney MD Primary Care Provider +1- [phone] Allergies Active Allergy Reactions Criticality Noted Date Comments Diclofenac Sodium Rash Low 09/16/2010 Homeopathic Products Itching Low 11/26/2008 Latex Rash Low 09/16/2010 Morphine Nausea and Vomiting Low 09/30/2018 Naproxen Rash Low 09/16/2010 Penicillins Rash Low 09/16/2010 Sulfa (Sulfonamide Antibiotics) Rash Low 08/29 Medications CALCIUM CARBONATE/VITAM IN D3 (CALCIUM + D PO) Take 1 Tablet by mouth daily at bedtime. Active metFORMIN (GLUCOPHAGE) 500 mg Oral tabletIndicatio ns:Abdominal pain, unspecified site Take 500 mg by mouth 2 times daily with meals. Active losartan (COZAAR) 100 mg tablet Take 100 mg by mouth daily. Active pravastatin (PRAVACHOL) 20 mg tablet Take 20 mg by mouth daily at bedtime. Active DULoxetine (CYMBALTA) 60 mg Capsule, Delayed Release(E.C.) Take 60 mg by mouth daily at bedtime . Active metoprolol tartrate (LOPRESSOR) 50 mg tablet Take 50 mg by mouth 2 times daily. Active insulin degludec (TRESIBA FLEXTOUCH U-100 SUBCUT) Inject 45 Units by subcutaneous injection daily before breakfast . Active allopurinol (ZYLOPRIM) 100 mg tablet Take 100 mg by mouth 2 times daily . Active Miscellaneous Medical Supply wheelchair. 1 Each 9 Active OTHER Take 1 Tablet by mouth 2 times daily. PROBIOTIC Active insulin aspart (NovoLOG) 100 unit/mL injection Inject 20 Units by subcutaneous injection 3 times daily with meals. Active tiZANidine (ZANAFLEX) 4 mg Capsule Take 4 mg by mouth every 8 hours as needed for Spasm. Active colchicine (COLCRYS) 0.6 mg tablet Take 0.6 mg by mouth 2 times daily. Active aspirin (ECOTRIN EC) 81 mg Tablet, Delayed Release (E.C.) Take 1 Tablet (81 mg) by mouth 2 times daily. 60 Tablet 04/19/2019 10:21 AM ROADABILITY MACHINE OPERATOR 9 Active oxyCODONE-aceta minophen (PERCOCET) 10-325 mg TabletIndicatio ns:Status post reverse total replacement of right shoulder Take 1-2 Tablets by mouth every 4 hours as needed for Pain. Max Daily Amount: 6 Tablets 40 Tablet 04/19/2019 10:[address] ROADABILITY MACHINE OPERATOR 9 Active mupirocin (BACTROBAN) 2 % Ointment APPLY OINTMENT TOPICALLY TO AFFECTED AREA TWICE DAILY 0 Active HYDROcodone-ashish taminophen (NORCO) 10-325 mg Tablet Take 1 Tablet by mouth 4 times daily as needed. 0 Active diclofenac sodium (VOLTAREN) 1 % gel APPLY 2 GRAMS FOUR TIMES DAILY NEEDED FOR JOINT PAIN 1 9 Active FREESTYLE LITE STRIPS Strip USE 1 STRIP TO CHECK GLUCOSE THREE TIMES DAILY (DX E11.9) 9 Active gabapentin (NEURONTIN) 100 mg capsule Take 100 mg by mouth 3 times daily. Active predniSONE (DELTASONE) 10 mg tablet Take 10 mg by mouth daily. Active adalimumab (HUMIRA) 40 mg/0.8 mL Syringe Kit Inject by subcutaneous injection. 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 04/18/2019 Obstructive sleep apnea 04/06/2019 Obesity (BMI 30.0-34.9) 04/06/2019 Rheumatoid arthritis involving left hip 12/26/19 19 Essential hypertension 12/12/2018 Dyslipidemia 12/12/2018 Type 2 diabetes mellitus wit hout complication, with long-term current use of insulin 12/12/2018 Gout 12/12/2018 Leukocytosis (leucocytosis) 12/12/2018 Anemia 12/12/2018 Thrombocytosis 12/12/2018 Hyperkalemia 12/12/2018 Elevated serum creatinine 12/12/2018 Resolved Problems Problem Noted Date Diagnosed Date Resolved Date Primary osteoarthritis of left hip 12/25/2018 12/25/2018 Preoperative general physical examination 12/12/2018 04/18/2019 Primary osteoarthritis of right shoulder 08/22/2018 04/18/2019 Osteoarthritis of left hip 06/09/2018 0 12/25/2018 Family History Medical History Relation Name Comments Respiratory Disease Father Hypertension Mother Stroke Mother Heart Disease Sister 1 Diabetes Sister 2 Breast Cancer Sister 3 Stroke [...] on file Legal Sex Female 3:59 AM ROADABILITY MACHINE OPERATOR Gender Identity Not on file Sexual Orientation Not on file Last Filed Vital Signs Vital Sign Reading Time Taken Comments Blood Pressure 168/90 11/06/2020 11:20 AM CDT Pulse 74 11/06/2020 11:20 AM CDT Temperature 37 C (98.6 F) 04/19/2019 8:33 AM ROADABILITY MACHINE OPERATOR Respiratory Rate 17 04/19/2019 8:33 AM ROADABILITY MACHINE OPERATOR Oxygen Saturation 98% 04/19/2019 8:33 AM ROADABILITY MACHINE OPERATOR Inhaled Oxygen Concentration - - Weight 96.2 [...] (1 - Tdap) 11/15/1963 PNEUMOCOCCAL VACCINE 50+ YEARS (1 of 2 - PCV) 11/14/18 63 ZOSTER VACCINE (1 of 2) 1994 DIABETES ANNUAL RETINAL EXAM 03/10/2001 03/10/2000 OSTEOPOROSIS SCREENING 2009 DIABETES HBA1C Q 6 MONTHS 06/14/2019 12/12/2018 RSV VACCINE (60+ or ) (1 - 1-dose 75+ series) 11/15/2019 INFLUENZA VACCINE (#1) 2024 Medical Devices Implanted Type Area [employer] Device Identifier Shelf Expiration Date Model / Serial / Lot Stem Fem Actis Colr Std Sz6 1010 - [id number] Implanted:Qty: 1 on 12/26/2018 by Justyn Bajwa MD at [facility] Hip Left: Hip [employer] 10/28/2028 [id number] / / [id number] Head Fem Art/Kevin Cer Sz36 1365-36-310 - [id number] Implanted:Qty: 1 on 12/26/2018 by Justyn Bajwa MD at [facility] Hip Left: Hip [employer] 09/28/2023 1365-36-310 / / [id number] Cup Pinn Sctr Grptn 52mm 1217-32-052 - [id number] Implanted:Qty: 1 on 12/26/2018 by Justyn Bajwa MD at [facility] Hip Left: Hip [employer] 10/28/2028 1217-32-052 / / [id number] Liner Pinn Altrx Poly [id number] - [id number] Implanted:Qty: 1 on 12/26/2018 by Justyn Bajwa MD at [facility] Hip Left: Hip [employer] 10/29/2023 [id number] / / [id number] Plate Wrist Lcp Fusion 02.110.151 - [id number] Implanted:Qty: 1 on 10/06/2018 by Justyn Mahmood MD at [facility] Plate Right: Wrist SYNTHES STRATEC 02.110.151 / / LOAD# [id number] Screw St Stdrv 3.5x18mm 02.200.018 - [id number] Implanted:Qty: 1 on 10/06/2018 by Justyn Mahmood MD at [facility] Screw Right: Wrist SYNTHES-STRATEC- MAXIFACIAL 02.200.018 / / LOAD# [id number] Screw St Loc Stdrv 3.5x22mm 212.107 - [id number] Implanted:Qty: 1 on 10/06/2018 by Justyn Mahmood MD at [facility] Screw Right: Wrist SYNTHES STRATEC 212.107 / / LOAD# [id number] Screw St Loc Stdrv 3.5x16mm 212.104 - [id number] Implanted:Qty: 1 on 10/06/2018 by Justyn Mahmood MD at [facility] Screw Right: Wrist SYNTHES [employer]ATEC 212.104 / / LOAD# [id number] Screw St Loc Stdrv 3.5x18mm 212.105 - [id number] Implanted:Qty: 1 on 10/06/2018 by Justyn Mahmood MD at [facility] Screw Right: Wrist SYN[employer]ES [employer]ATEC 212.105 / / LOAD# [id number] Screw St Loc 2.7x14mm 202.214 - [id number] Implanted:Qty: 1 on 10/06/2018 by Justyn Mahmood MD at [facility] Screw Right: Wrist SYNTHES STRATEC 202.214 / / LOAD# [id number] Screw St Loc 2.7x18mm 202.218 - [id number] Implanted:Qty: 1 on 10/06/2018 by Justyn Mahmood MD at [facility] Screw Right: Wrist SYN[employer]ES [employer]ATEC 202.218 / / LOAD# [id number] Screw St Loc 2.7x12mm 202.212 - [id number] Implanted:Qty: 1 on 10/06/2018 by Justyn Mahmood MD at [facility] Screw Right: Wrist SYNTHES STRATEC 202.212 / / LOAD# [id number] Screw Canc 6.5x25mm 1172-25-000 - [id number] Implanted:Qty: 1 on 12/26/2018 by Justyn Bajwa MD at [facility] Screw Left: Hip [employer] 09/27/2028 [id number] / / [id number] Screw Canc 6.5x20mm 1172-20-000 - [id number] Implanted:Qty: 1 on 12/26/2018 by Justyn Bajwa MD at [facility] Screw Left: Hip [employer] 08/28/2028 [id number] / / [id number] Screw Glenoid Baseplate 6.5x30mm Pdi671 - [id number] Implanted:Qty: 1 on 04/18/2019 by Manny [place] MD at [facility] Screw Right: Shoulder [employer] 04/29/2020 [id number] / / LOAD [id number] Screw Mirta Ns 5x18mm Aqls Qrz398 - [id number] Implanted:Qty: 1 on 04/18/2019 by Manny [place] MD at [facility] Screw Right: Shoulder [employer] 04/29/2020 [id number] / / LOAD [id number] Screw Mirta Ns 5x18mm Aqls Tyu766 - [id number] Implanted:Qty: 1 on 04/18/2019 by Manny [place] MD at [facility] Screw Right: Shoulder [employer] 04/29/2020 EQV568 / / LOAD [id number] Screw Glenoid Baseplate 5x38mm [id number] - [id number] Implanted:Qty: 1 on 04/18/2019 by Manny [place] MD at [facility] Screw Right: Shoulder [employer] 04/29/2020 [id number] / / LOAD [id number] Glenosphere Rvrs Shldr 39mm Tzx400 - [id number] Implanted:Qty: 1 on 04/18/2019 by Manny [place] MD at [facility] Shoulder Right: Shoulder [employer] 08/04/2023 BVU839 / / [id number] Insert Hum Ascnd Flx Rvrs +6 39mm Rek693t - [id number] Implanted:Qty: 1 on 04/18/2019 by Manny [place] MD at [facility] Shoulder Right: Shoulder [employer] 11/17/2023 [id number] / / [id number] Stem Hum Ascnd Flx Ptc Std Sz4b Ahg806a - [id number] Implanted:Qty: 1 on 04/18/2019 by Manny [place] MD at [facility] Shoulder Right: Shoulder [employer] 01/17/2024 [id number] / / [id number] Tray Hum Ascnd Flx Ecc Rev 40d Pul571 - [id number] Implanted:Qty: 1 on 04/18/2019 by Manny [place] MD at [facility] Shoulder Right: Shoulder [employer] 12/17/2023 [id number] / [id number] / [id number] Putty Dbx Dbm 2.5cc 90144 - [id number] Implanted:Qty: 1 on 10/06/2018 by Justyn Mahmood MD at [facility] Tissue Right: Wrist [employer]CULOSKELETAL [employer]ANSPLANT [employer]OU 04/19/2019 [id number] / [id number] / 2019-04-19 Bsplt Glnod Aqls +3 25mm Implanted:Qty: 1 on 04/18/2019 by Manny [place] MD at [facility] Right: Shoulder [employer] 02/24/2024 [id number] / / [id number] Procedures Procedure Name Priority Date/Time Associated Diagnosis Comments HEMOGLOBIN A1C Routine 12/12/2018 11:48 AM CDT from Last 3 Months or Most Recently Relevant to Health Maintenance Results * (ABNORMAL) HEMOGLOBIN A1C (12/12/2018 11:48 AM CDT) HEMOGLOBIN A1C 6.2(H) See comment % 12/12/2018 12:17 PM CDT [facility] EST. AVG GLUCOSE, A1C 131 mg/dL 12/12/2018 12:17 PM CDT [facility] Blood Venipuncture / Unknown 12/12/2018 11:48 AM CDT 12/12/2018 11:59 AM CDT Narrative [facility] - 12/12/2018 12:17 PM CDT HGB A1C INTERPRETATION NORMAL: <5.7% PRE-DIABETES: 5.7 - 6.4% DIABETES: 6.5% OR GREATER us Deniz Vo MD CHEMISTRY ORDERABLES Final [facility] lt [facility] #[id number] [address] [place] [address] from Last 3 Months or Most Recently Relevant to Health Maintenance Insurance MEDICARE PART A AND B [facility] RX AETNA Medicare Part D RX [employer] (INTERNAL) [facility] * Guarantor: APOLINAR ZABALA (SNF) Account Type Relation to Patient Date of Phone Billing Address Corporate Other [address] [facility] [place] [address] Advance Directives For more information, please contact: [phone] * Full Code (Latest Code Status on File) Date Activated Date Inactivated Comments 04/18/2019 2:22 PM 04/19/2019 1:20 PM * Full Code Date Activated Date Inactivated Comments 04/18/2019 7:23 AM 04/18/2019 2:22 PM * Full Code Date Activated Date Inactivated Comments 12/26/2018 6:37 PM 12/29/2018 3:57 PM * Full Code Date Activated Date Inactivated Comments 12/26/2018 1:09 PM 12/26/2018 6:37 PM Care Teams Motion Picture Set Grip Relationship Specialty Start Date End Date Blossom Barney MD [address] [place] [address] PCP - General Internal Medicine 12/12/18
--- OUTSIDE RECORDS SUMMARY | 2024-12-20 17:45 | XMS_ITS | Encounter Summary ---
Author Organization [facility] Address [address] [place] [address] Care Team Providers Care Chlorine Operator Name Role Phone Blossom Barney MD Primary Care Provider +1- [phone] Encounter Details Date Type Department Care Team (Latest Contact Info) Description 04/04/2007 Outpatient Historical [facility] 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
[2024-12-20 18:06] LABS: Troponin(5th) Baseline 39 ng/L (0-10)
[2024-12-20 18:49] LABS: NT Pro B Type Natriuretic Pept 13432 pg/mL (0-450)
[2024-12-20 19:13] LABS: Respiratory Syncytial Virus Ce NEGATIVE (Negative); SARS-CoV-2 PCR NEGATIVE (Negative)
[2024-12-20 19:23] LABS: Troponin 5 2HR 39.96 ng/L (0-10); Troponin 5 2HR Delta 0.96 ABS# (0-10)
[2024-12-20 19:24] LABS: Alanine Aminotransferase 8 U/L (0-33); Albumin Level 3.4 g/dL (3.5-5.2); Alkaline Phosphatase 146 U/L (35-105); Anion Gap 28.1 (5-19); Aspartate Amino Transferase 10 U/L (0-32); Blood Urea Nitrogen 71 mg/dL (8-23); Calcium 8.9 mg/dL (8.5-10.5); Carbon Dioxide 14 mmol/L (22-29); Chloride 92 mmol/L (98-107); Creatinine Clr Calc Pharmacy 15.0628; Globulin 4.3 g/dL (1.3-4.6); Glucose 171 mg/dL (65-115); Osmolality Calculated 293 mOsm/kg (285-295); Potassium 5.1 mmol/L (3.5-5.1); Sodium 129 mmol/L (136-145); Total Protein 7.7 g/dL (6.6-8.7)
[2024-12-20 19:50] LABS: Glucose Urine UA Negative (Normal); Nitrate Urine Negative (Negative); Specific Gravity, Urine 1.022 (1.005-1.030)
[2024-12-20 19:55] LABS: Add Urine Microscopic? YES; Universal Test for UA Present (0)
[2024-12-20] MEDS: FUROsemide 10 mg/mL SDV 10mL 80 MG IVP (19:55)
[2024-12-20 19:56] LABS: PCP Screen Urine Negative (Negative)
[2024-12-20 20:11] LABS: UA Slide Review UA Slide Review Perf
--- NOTE | 2024-12-20 22:16 | ECG_ITS ---
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 Measurements Intervals [place] Rate: 69 P: 74 AR: 233 QRS: 66 QRSD: 114 T: 203 QT: 399 QTc: 429 Interpretive Statements SINUS RHYTHM WITH FIRST DEGREE AV BLOCK MODERATE INTRAVENTRICULAR CONDUCTION DELAY [110+ ms QRS DURATION] NONSPECIFIC ST & T-WAVE ABNORMALITY Compared to ECG 12/20/2024 17:01:10 Intraventricular conduction delay now present Myocardial infarct finding no longer present Possible ischemia no longer present T-wave abnormality still present Electronically Signed On 12-21-2024 09:09:44 CDT by Karlo Hughes M.D. [email or web address]
--- NOTE | 2024-12-20 23:04 | ECG_ITS ---
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 Measurements Intervals [place] Rate: 70 P: -8 [place]: 156 QRS: 70 QRSD: 120 T: 215 QT: 393 QTc: 425 Interpretive Statements SINUS RHYTHM MODERATE INTRAVENTRICULAR CONDUCTION DELAY [110+ ms QRS DURATION] NONSPECIFIC ST & T-WAVE ABNORMALITY Compared to ECG 12/20/2024 22:16:10 First degree AV block no longer present T-wave abnormality still present Electronically Signed On 12-21-2024 09:09:42 CDT by Karlo Hughes M.D. [email or web address]
--- NOTE | 2024-12-20 23:07 | CTR_ITS ---
PROCEDURE INFORMATION: Exam: CT Chest Without Contrast; Diagnostic Exam date and time: 12/20/2024 11:15 PM Age: 79 years old Clinical indication: Bloating; Shortness of breath; Additional info: Brian, anasarca, brian, assess for hydronephrosis/obstructive uropathy. H/o ra TECHNIQUE: Imaging protocol: Diagnostic computed tomography of the chest without contrast. Radiation optimization: All CT scans at this facility use at least one of these dose optimization techniques: automated exposure control; mA and/or kV adjustment per patient size (includes targeted exams where dose is matched to clinical indication); or iterative reconstruction. COMPARISON: CR XR chest 1V portable [id number] 12/20/2024 5:11 PM RADIATION DOSE METRICS: Total DLP (mGy-cm): 533.1 FINDINGS: Lungs: There is an irregular pulmonary nodule in the right upper lobe measuring 16 x 14 mm (series 5, image 18) and a subsolid nodule in the left upper lobe measuring up to 18 x 17 mm (series 5, image 24). Pleural spaces: Small bilateral pleural effusions with atelectatic changes in the lung bases. Heart: Mitral annular calcifications. Coronary arteries: Coronary arterial atherosclerotic calcifications are present. Lymph nodes: Multiple prominent mediastinal lymph nodes measuring up to 10 mm in short axis. Vasculature: Unremarkable. No aortic aneurysm. Bones/joints: Severe degenerative changes in the left glenohumeral joint and reverse ball and socket right shoulder arthroplasty. Soft tissues: Unremarkable. Society recommendations are as follows: For patients at low risk (minimal or absent history of smoking and of other known risk factors), recommend CT Chest at 3-6 months, then consider CT Chest at 18-24 months. For patients at high risk (history of smoking or of other known risk factors), recommend CT Chest at 3-6 months, then CT Chest at 18-24 months. (Reference: Benjamin) REFERENCES: Benjamin Sams et al. Guidelines for Management of Incidental Pulmonary Nodules Detected on CT Images: From the Fleischner Society 2017. Radiology. 2017;284(1):228-243. PROCEDURE INFORMATION: Exam: CT Abdomen And Pelvis Without Contrast Exam date and time: 12/20/2024 11:15 PM Age: 79 years old Clinical indication: Bloating; Shortness of breath; Additional info: Brian, anasarca, brian, assess for hydronephrosis/obstructive uropathy. H/o ra TECHNIQUE: Imaging protocol: Computed tomography of the abdomen and pelvis without contrast. Radiation optimization: All CT scans at this facility use at least one of these dose optimization techniques: automated exposure control; mA and/or kV adjustment per patient size (includes targeted exams where dose is matched to clinical indication); or iterative reconstruction. COMPARISON: CR XR chest 1V portable [id number] 12/20/2024 5:11 PM RADIATION DOSE METRICS: Total DLP (mGy-cm): 816.7 FINDINGS: Liver: Cirrhotic liver with hypertrophy of the lateral segment of the left lobe and caudate lobe and a nodular liver contour. Gallbladder and biliary ducts: The gallbladder is absent. Pancreas: Normal. No ductal dilation. Spleen: Normal. No splenomegaly. Adrenal glands: Normal. No mass. Kidneys and ureters: Normal. No hydronephrosis. Stomach and bowel: Unremarkable. No obstruction. No mucosal thickening. Appendix: The appendix is not visualized but there are no secondary signs of acute appendicitis. Intraperitoneal space: Unremarkable. No free air. No significant fluid collection. Vasculature: Unremarkable. No abdominal aortic aneurysm. Lymph nodes: Unremarkable. No enlarged lymph nodes. Urinary bladder: Unremarkable as visualized. Reproductive: Unremarkable as visualized. Bones/joints: Unremarkable. No acute fracture. Soft tissues: Unremarkable. CT/[place] [id number] IMPRESSION: 1. Small bilateral pleural effusions with atelectatic changes in the lung bases. 2. Multiple prominent mediastinal lymph nodes measuring up to 10 mm in short axis. 3. There is an irregular pulmonary nodule in the right upper lobe measuring 16 x 14 mm (series 5, image 18) and a subsolid nodule in the left upper lobe measuring up to 18 x 17 mm (series 5, image 24). While this may represent multifocal multi lobar pneumonia true pulmonary nodules can not be excluded and in the absence of a known primary malignancy the Fleischner IMPRESSION: 1. Cirrhotic liver. 2. No bowel obstruction or inflammatory process associated with the bowel. 3. No free air or significant free fluid in the abdomen or pelvis. 4. The appendix is not visualized but there are no secondary signs of acute appendicitis.
--- NOTE | 2024-12-20 23:27 | PM.HP ---
Providers/Chief Complaint Admitting Physician: Christy Gunderson MD Primary Care Provider: Blossom Barney MD Chief Complaint: SOB, Chest Pressure History of Present Illness Adina Gracia is a 79 year old female with significant past medical history for diabetes, hypertension, gout and severe rheumatoid arthritis, currently on Infliximab and prn prednisone, chronic leukocytosis of unclear significance over several years, followed by hematology. she presents to the ER today with chief complaints of worsening dyspnea on exertion over the past several weeks. Patient states that she has been unable to carry on her ADLs with as a result of her dyspnea. Day-to-day activities within the house make her very short of breath. She also feels a sensation of chest tightness along with the dyspnea. She has noticed increased lower extremity swelling over the past few weeks for which she wears chronic compression stockings and has used Lasix in the past. Reportedly she was taken off of Lasix by her PCP recently. She is unsure about the reason but thinks this may have been related to her kidney function. She states that she was evaluated at [facility] a few weeks ago and was told that her heart is all right. She is unable to tell me if she had an echocardiogram stress test or other cardiac testing there are not. She has a known history of CKD with a baseline creatinine range of 1.8-2.0. In August 2024 this was noted to be at 2.3, today creatinine is at 3.4.she has noticed a drop in her urine output over the past 2 days. Patient has been using albuterol at home as she has noticed herself to be wheezing however this does not appear to help very much with her symptoms of dyspnea. On arrival to the ER today her 02 sat was 80%, needing oxygen at 2lpm which is a new requirement for the patient. Denies any fever, chills. ROS + increasing cough over the past month. Last quantiferon screen negative from 2019. Review of Systems General: Reports: 10 or more systems reviewed and unremarkable except in HPI and below Const: Denies: fever(s), chills or body aches Eyes: Denies: change in vision, blurry vision or photophobia ENMT: Reports: hoarseness; Denies: throat pain, enlarged tonsils, odynophagia or nasal congestion Card: Denies: chest pain, palpitations, irregular heart rhythm, edema, swelling of feet/ankles, lightheadedness, pre-syncope, dyspnea on exertion or orthopnea Resp: Denies: dyspnea, productive cough, non-productive cough, wheezing, stridor, pain on inspiration, change in phlegm color, hemoptysis or chest congestion GI: Denies: abdominal pain, nausea, vomiting, hematemesis, coffee ground emesis, dysphagia, heartburn, diarrhea, constipation, GI cramping, change in stool character, hematochezia or melena : Denies: flank pain, difficulty voiding, dysuria, urinary frequency, urinary urgency, urinary hesitancy or hematuria Musc: Denies: neck pain, back pain, extremity pain, joint swelling, joint warmth or deformity Neuro: Denies: headache(s), numbness in extremities, weakness in extremities, sensory changes, difficulty walking, frequent falls, dizziness, vertigo, behavioral changes, Slurred speech present or seizure-like activity Psych: Denies: anxiety, depression, suicidal ideation or homicidal ideation Endo: Denies: polyuria, polydipsia, tired all the time, cold intolerance or hot flashes Memo/Lymph: Denies: easy bruising or easy bleeding Medications/Allergies Home Medications ?Medication ?Instructions ?Recorded ?Confirmed ?Last Taken ?Type diclofenac sodium 1 % topical gel 2 - 4 gm topical BID PRN UNKNOWN 08/31/19 11/07/24 06/20/21 History (Voltaren) duloxetine 60 mg capsule,delayed 60 mg PO DAILY 08/31/19 11/07/24 06/20/21 History release (Cymbalta) pravastatin 20 mg tablet 20 mg PO DAILY 08/31/19 11/07/24 06/20/21 History Vitamin B-2 1 tab PO DAILY 03/31/20 11/07/24 06/20/21 History aspirin 81 mg tablet,delayed 81 mg PO DAILY PRN UNKNOWN 03/31/20 11/07/24 06/20/21 History release metoprolol tartrate 50 mg tablet 50 mg PO BID 03/31/20 11/07/24 06/20/21 History turmeric 1 tab PO DAILY 03/31/20 11/07/24 06/20/21 History insulin degludec 100 unit/mL (3 60 unit (0.6 mL) SUBCUT DAILY #0 mL 04/04/20 11/07/24 06/20/21 Rx mL) subcutaneous pen (Tresiba FlexTouch U-100 insulin) gabapentin 300 mg capsule 300 mg PO TID 01/07/22 11/07/24 Unknown History hydrocodone bitartrate PO 01/07/22 11/07/24 Unknown History AFO to right #1 ea 06/17/22 11/07/24 Unknown Rx infliximab-abda 100 mg intravenous IV 08/19/22 11/07/24 Unknown History solution (Renflexis) promethazine-DM 6.25 mg-15 mg/5 mL 5 - 10 ml PO Q6H PRN cough #200 mL 03/11/23 11/07/24 Unknown Rx oral syrup albuterol sulfate 2.5 mg/3 mL 2.5 mg (3 mL) inhalation Q4H PRN 03/15/23 11/07/24 Unknown Rx (0.083 %) solution for nebulization shortness of breath or wheezing #180 mL ipratropium 0.5 mg-albuterol 3 mg 3 ml inhalation QID PRN wheezing 03/15/23 11/07/24 Unknown Rx (2.5 mg base)/3 mL nebulization #180 mL soln nebulizers #1 ea 05/21/23 11/07/24 Unknown Rx mupirocin 2 % topical ointment 1 applic topical BID #22 grams 07/27/23 11/07/24 Unknown Rx albuterol sulfate 90 mcg/actuation See Rx Instructions .Route 08/20/23 11/07/24 Unknown Rx aerosol inhaler .COMPLEX #9 grams clobetasol 0.05 % topical cream topical 04/12/24 11/07/24 Unknown History tizanidine 4 mg tablet mg PO 04/12/24 11/07/24 Unknown History prednisone 5 mg tablet 5 mg PO DAILY PRN prn joint pain 06/22/24 11/07/24 Unknown Rx flare #60 tabs amlodipine 10 mg tablet mg PO 07/25/24 11/07/24 Unknown History empagliflozin 10 mg tablet mg PO 07/25/24 11/07/24 Unknown History (Jardiance) insulin aspart SUBCUT 07/25/24 11/07/24 Unknown History (niacinamide)(U-100) 100 unit/mL(3 mL) subcutaneous pen (Fiasp FlexTouch U-100 Insulin) allopurinol 100 mg tablet 100 mg PO BID #180 tabs 12/12/24 Unknown Rx Allergies Allergy/AdvReac Type Severity Reaction Status Date / Time latex Allergy Mild rash Verified 11/07/24 09:49 Penicillins Allergy Mild rash Verified 11/07/24 09:49 Sulfa (Sulfonamide Allergy Mild rash Verified 11/07/24 09:49 Antibiotics) sulindac Allergy Mild rash Verified 11/07/24 09:49 doxycycline Allergy ADR-Itching Verified 11/07/24 09:49 naproxen Allergy rash Verified 11/07/24 09:49 PFSH Acute PFSH: Medical History Charcot foot due to diabetes mellitus Mass of right ankle Right ankle pain Coronary artery disease Chronic use of steroids Chronic anemia Dyslipidemia Atypical chest pain Seronegative rheumatoid arthritis of both hands Seronegative rheumatoid arthritis High risk medication use Immunization counseling Osteoarthritis Gout Surgical History Hx of total ankle replacement History of bilateral cataract extraction History of shoulder surgery History of hysterectomy History of arthroscopic knee surgery History of thumb surgery History of carpal tunnel surgery H/O total knee replacement History of laparoscopic cholecystectomy History of hip replacement Family History Sister CAD (coronary artery disease) Heart attack in her 50s and of the same. Mother Stroke Strong family history for CVA. Grandfather, mother, niece all had a CVA Other Asthma Diabetes Hypertension Denies family history of Lupus (systemic lupus erythematosus) Rheumatoid arthritis Social History Smoking and tobacco/nicotine status: never used tobacco/nicotine Alcohol intake: never Vitals/I&O/Wt Last Vital Signs Pulse 69 12/20/24 22:00 Resp 21 H 12/20/24 22:00 BP 142/59 12/20/24 22:00 Pulse Ox 93 12/20/24 22:00 O2 Del Method Nasal Cannula 12/20/24 22:00 O2 Flow Rate 2 12/20/24 22:00 Weight last 48 hrs Weight 95.254 kg Physical Exam Narrative: General: No acute distress, AO x1 HEENT: PERRLA, pupils bilaterally equal and reactive, pallors not present Chest: Normal vesicular breath sounds, no added sounds, equal good air entry bilaterally CVS: S1-S2 regular, no murmurs, no tachycardia, no gallops, no rubs Abdomen: Soft, nontender, no organomegaly, bowel sounds present Neuro: No focal deficits, no facial deformity, AO x3, power 5/5 in all limbs Extremities: B/L LE pitting edema Data 12/20/24 17:13 12/20/24 17:13 Other data: Radiology Impressions Chest X-Ray 12/20/24 17:04 IMPRESSION: No acute findings. Laboratory Results WBC 20.64 10^3/uL (3.29-11.43) H 12/20/24 17:13 RBC 3.05 10^6/uL (3.85-5.65) L 12/20/24 17:13 Hgb 8.20 g/dL (11.27-16.99) L 12/20/24 17:13 Hct 27.4 % (36-47) L 12/20/24 17:13 MCV 89.8 fl (85-98) 12/20/24 17:13 MCH 26.9 pg (27-33) L 12/20/24 17:13 MCHC 29.9 g/dL (30-55) L 12/20/24 17:13 RDW 16.0 % (12.1-15.1) H 12/20/24 17:13 Plt Count 374 10^3/cmm (157-399) 12/20/24 17:13 MPV 11.0 fL (7.4-10.4) H 12/20/24 17:13 Neut % (Auto) 91.0 % 12/20/24 17:13 Lymph % (Auto) 4.3 % 12/20/24 17:13 [place] % (Auto) 3.7 % 12/20/24 17:13 Eos % (Auto) 0.0 % 12/20/24 17:13 Baso % (Auto) 0.2 % 12/20/24 17:13 Neut # (Auto) 18.76 10^3/uL (1.8-7.7) H 12/20/24 17:13 Lymph # (Auto) 0.9 10^3/uL (0.8-4.8) 12/20/24 17:13 [place] # (Auto) 0.8 10^3/uL (0.2-0.9) 12/20/24 17:13 Eos # (Auto) 0.0 10^3/uL (0.0-0.8) 12/20/24 17:13 Baso # (Auto) 0.1 10^3/uL (0.0-0.1) 12/20/24 17:13 Nucleated RBC % (auto) 0 % 12/20/24 17:13 Nucleated RBCs # 0.0 /100WBC 12/20/24 17:13 D-Dimer 2.94 ug/mLFEU (0-0.59) H 12/20/24 23:43 Sodium 129 mmol/L (136-145) L 12/20/24 17:13 Potassium 5.1 mmol/L (3.5-5.1) 12/20/24 17:13 Chloride 92 mmol/L (98-107) L 12/20/24 17:13 Carbon Dioxide 14 mmol/L (22-29) L 12/20/24 17:13 Anion Gap 28.1 (5-19) H 12/20/24 17:13 BUN 71 mg/dL (8-23) H 12/20/24 17:13 Creatinine 3.4 mg/dL (0.5-0.9) H 12/20/24 17:13 GFR Calculation Not Reportable 12/20/24 17:13 Glucose 171 mg/dL (65-115) H 12/20/24 17:13 Estimat Average Glucose 134 12/20/24 23:43 Hemoglobin A1c 6.3 % (4.0-6.0) H 12/20/24 23:43 Calculated Osmolality 293 mOsm/kg (285-295) 12/20/24 17:13 Calcium 8.9 mg/dL (8.5-10.5) 12/20/24 17:13 Total Bilirubin 0.4 mg/dL (0.15-1.2) 12/20/24 17:13 AST 10 U/L (0-32) 12/20/24 17:13 ALT 8 U/L (0-33) 12/20/24 17:13 Alkaline Phosphatase 146 U/L (35-105) H 12/20/24 17:13 Troponin T Baseline 39 ng/L (0-10) H 12/20/24 17:13 Troponin T 120 Minute 39.96 ng/L (0-10) H 12/20/24 19:00 Delta Troponin T 0.96 ABS# (0-10) 12/20/24 19:00 Troponin T Hi Sens 6Hr 41.68 ng/L (0-10) H 12/20/24 23:43 Troponin T Hi Sens 6Hr Delta 2.68 ng/L (0-12) 12/20/24 23:43 C-Reactive Protein 78.8 mg/L (0.0-4.9) H 12/20/24 17:13 NT-Pro-B Natriuret Pep 04401 pg/mL (0-450) H 12/20/24 17:13 Total Protein 7.7 g/dL (6.6-8.7) 12/20/24 17:13 Albumin 3.4 g/dL (3.5-5.2) L 12/20/24 17:13 Globulin 4.3 g/dL (1.3-4.6) 12/20/24 17:13 Urine Color Yellow (Yellow) 12/20/24 19:35 Urine Appearance Cloudy (CLEAR) A 12/20/24 19:35 Urine pH 5.0 (5-7) 12/20/24 19:35 Ur Specific [place] 1.022 (1.005-1.030) 12/20/24 19:35 Urine Protein 3+ (Negative) A 12/20/24 19:35 Urine Glucose (UA) Negative (Normal) 12/20/24 19:35 Urine Ketones Trace (Negative) 12/20/24 19:35 Urine Blood Negative (Negative) 12/20/24 19:35 Urine Nitrate Negative (Negative) 12/20/24 19:35 Urine Bilirubin Negative (Negative) 12/20/24 19:35 Urine Urobilinogen 1.0 mg/dL (Negative) 12/20/24 19:35 Ur Leukocyte Esterase Negative (Negative) 12/20/24 19:35 Urine RBC 0-2 /hpf (0-2) 12/20/24 19:35 Urine WBC 6-10 /hpf (0-5) 12/20/24 19:35 Ur Squamous Epith Cells 11-20 /hpf (0-5) H 12/20/24 19:35 Amorphous Sediment Not Reportable 12/20/24 19:35 Urine Bacteria 3+ /hpf (NONE) H 12/20/24 19:35 Hyaline Casts 34.33 /lpf 12/20/24 19:35 Urine Opiates Screen Negative ng/mL (Negative) 12/20/24 19:35 Ur Barbiturates Screen Negative ng/mL (Negative) 12/20/24 19:35 Ur Phencyclidine Scrn Negative ng/mL (Negative) 12/20/24 19:35 Ur Amphetamines Screen Negative ng/mL (Negative) 12/20/24 19:35 U Benzodiazepines Scrn Negative ng/mL (Negative) 12/20/24 19:35 Urine Cocaine Screen Negative ng/mL (Negative) 12/20/24 19:35 U Marijuana (THC) Screen Negative ng/mL (Negative) 12/20/24 19:35 Hepatitis A IgM Ab Non-reactive (Nonreactive) 12/20/24 23:43 Hep Bs Antigen Non-reactive (Nonreactive) 12/20/24 23:43 Hep Bs Antibody < 3.5 (11.5-1000) L 12/20/24 23:43 Hep B Core Total Ab Non-reactive (Nonreactive) 12/20/24 23:43 Hepatitis C Antibody Non-reactive (Nonreactive) 12/20/24 23:43 Influenza A (PCR) Negative (Negative) 12/20/24 17:54 Influenza Type B (PCR) Negative (Negative) 12/20/24 17:54 RSV (PCR) Negative (Negative) 12/20/24 17:54 SARS-CoV-2 (PCR) Negative (Negative) 12/20/24 17:54 A&P Assessment and plan 1. Acute hypoxemic respiratory failure: 79-year-old lady with past medical history as outlined above, currently presenting to the hospital with several weeks of increasing dyspnea. Labs are notable for elevated BNP, patient has bilateral lower extremity edema and crackles on exam with concern for pulmonary edema as the cause of her new hypoxia. Her O2 sat today is 80% on room air, requiring 2 L/min supplemental O2 to maintain saturation. This is a new oxygen requirement for the patient Chest x-ray does not show any gross consolidation. Noted to have mild pulmonary edema in bilateral bases per my personal interpretation Overall patient is on high risk medication by way of infliximab, would be prudent to rule out an atypical/opportunistic infectious process therefore we will proceed with CT of the chest without contrast. Last QuantiFERON screen dates back to 2018 at which point it was negative. She has received Lasix 60 mg IV in the emergency room. She is yet to have a urine output. Will BladderScan and if there is evidence of retaining, we will proceed with Lion catheterization. Continue diuresis with Lasix 40 mg IV every 24 hours with close monitoring of kidney function and DAIJA's. D-dimer to assess for possible PE. Unable to obtain a CTA of the chest due to PUSHPA on CKD. 2. Anasarca: Cause is not entirely clear at this time. May be related to acute on chronic diastolic CHF exacerbation EKG today shows mild ST depression involving leads II, V5, V6. Troponins today with a baseline at 39, 2-hour without significant change at 39. Pending 6-hour trend. Patient denies any chest pain at this present time though has been having exertional chest pain intermittently over the past few weeks. Obtain echocardiogram. Last echocardiogram dates back to 2021 at which time she was found to have a grade 2 diastolic dysfunction with moderately elevated filling pressures. LVEF at that time was 70% with possible mild hypokinesia of the basal inferior lateral major. Alternate possibility is that of advancing CKD versus liver cirrhosis. CT of the abdomen and pelvis is ordered to further evaluate this possibility. 3. Acute kidney injury superimposed on CKD: PUSHPA on CKD. Patient's baseline creatinine is between 1.8-2.4. Today her creatinine is at 3.4. She has not been had Lasix in several weeks. Will check CT of the abdomen and pelvis to evaluate for any obstructive uropathy Bladder scan and Lion placement if there is evidence of urinary retention. She has received Lasix in the emergency room, closely monitor urine output DAIJA. Urine analysis with 11-20 squamous epithelial cells, bacteriuria noted, however this is not a clean-catch specimen. Given anemia, rising creatinine, persistent leukocytosis, will obtain SPEP and serum immunofixation to evaluate for malignant process. 4. High risk medication use: History of infliximab use, CT chest to evaluate for any opportunistic infections 5. Leukocytosis: Under evaluation as outpatient with hematology service. 6. Seronegative rheumatoid arthritis: Plan: DVT prophylaxis: Heparin 5000 subcutaneously every 12 hours Full code PDMP PDMP Reviewed: Not Reviewed Attestations Medical Necessity Statement*: Greater than 2 midnight stay is anticipated, need for IV diuresis, evaluation of anasarca and new hypoxemic respiratory failure Coding Level of Care Code Acute Code for Chg Fwd Diagnoses Acute hypoxemic respiratory failure J96.01 Anasarca R60.1 Acute kidney injury superimposed on CKD N17.9; N18.9 High risk medication use Z79.899 Leukocytosis D72.829 Seronegative rheumatoid arthritis M06.00
[2024-12-21] VITALS (43 sets, daily range): BP systolic 89–163; BP diastolic 55–91; PULSE 51–90; RESP 16–31; TEMP 36.4; O2SAT 86–100; BMI 38.1
[2024-12-21 00:06] LABS: Estmated Average Glucose 134; Hemoglobin A1C 6.3 % (4.0-6.0)
[2024-12-21 00:13] LABS: Troponin 5 6HR 41.68 ng/L (0-10); Troponin 5 6HR Delta 2.68 ng/L (0-12)
[2024-12-21 00:41] LABS: Hepatitis A Antibody IgM Non-Reactive (Nonreactive); Hepatitis B Surface Antigen Non-Reactive (Nonreactive)
[2024-12-21] MEDS: heparin 5,000 unit/mL INJ 1 mL 5000 UNIT SUBCUT ×3 (01:07→23:20)
--- NOTE | 2024-12-21 01:32 | PC.NURSE ---
Pt's post void bladder scan was 21mls. Pt voided 200mL prior to scan.
[2024-12-21 03:52] LABS: Coronavirus 229E,HKU1,NL63,OC4 Not Detected (NOT DETECT); Parainfluenza Virus Type 1 Not Detected (NOT DETECT); Parainfluenza Virus Type 2 Not Detected (NOT DETECT); Parainfluenza Virus Type 3 Not Detected (NOT DETECT); Parainfluenza Virus Type 4 Not Detected (NOT DETECT); SARS-COV-2 Not Detected (NOT DETECT)
[2024-12-21 04:21] LABS: Hematocrit 26.1 % (36-47); Hemoglobin 7.70 g/dL (11.27-16.99); Mean Corpuscular HGB Conc 29.5 g/dL (30-55); Mean Corpuscular Hemoglobin 27.0 pg (27-33); Mean Corpuscular Volume 91.6 fl (85-98); Nucleated Red Blood Cells % 0 %; Platelet Count 334 10^3/cmm (157-399); Red Blood Count 2.85 10^6/uL (3.85-5.65); White Blood Count 18.97 10^3/uL (3.29-11.43)
[2024-12-21 04:47] LABS: Alanine Aminotransferase 7 U/L (0-33); Albumin Level 3.4 g/dL (3.5-5.2); Alkaline Phosphatase 139 U/L (35-105); Anion Gap 22.4 (5-19); Aspartate Amino Transferase 8 U/L (0-32); Blood Urea Nitrogen 73 mg/dL (8-23); Calcium 8.9 mg/dL (8.5-10.5); Carbon Dioxide 18 mmol/L (22-29); Chloride 95 mmol/L (98-107); Creatinine Clr Calc Pharmacy 13.8415; Globulin 4.2 g/dL (1.3-4.6); Glucose 176 mg/dL (65-115); Osmolality Calculated 298 mOsm/kg (285-295); Potassium 4.4 mmol/L (3.5-5.1); Sodium 131 mmol/L (136-145); Thyroid Stimulating Hormone 2.58 uIU/mL (0.27-4.20); Total Protein 7.6 g/dL (6.6-8.7)
--- OUTSIDE RECORDS SUMMARY | 2024-12-21 06:12 | XMS_ITS | Encounter Summary ---
Author Organization [facility] Address [address] [place] [address] Care Team Providers Care Draw Press Operator Name Role Phone Blossom Barney MD Primary Care Provider [phone]- [phone] Encounter Details Date Type Department Care Team (Late st Contact Info) Description 05/06/2007 Outpatient Historical HIS IN BED Justyn Bajwa MD NO ADDRESS ON FILE Social History Tobacco Use Types Packs/Day Years Used Date Smoking Tobacco: Never Assessed Comments Unknown Sex and Gender Information Value Date Recorded Sex Assigned at Not on file Legal Sex Female 3:59 AM TEACHER THEATER ARTS Gender Identity Not on file Sexual Orientation Not on file documented as of this encounter Plan of Treatment Not on file documented as of this encounter Procedures Procedure Name Priority Date/Time Associated Diagnosis Comments POC GLUCOSE Routine 04/30/2007 10:51 AM TEACHER THEATER ARTS PROTIME-INR Routine 04/30/2007 8:22 AM TEACHER THEATER ARTS POC GLUCOSE Routine 04/30/2007 5:54 AM TEACHER THEATER ARTS POC GLUCOSE Routine 04/29/2007 8:20 PM TEACHER THEATER ARTS POC GLUCOSE Routine 04/29/2007 5:19 PM TEACHER THEATER ARTS POC GLUCOSE Routine 04/29/2007 11:05 AM TEACHER THEATER ARTS POC GLUCOSE Routine 04/29/2007 6:20 AM TEACHER THEATER ARTS PROTIME-INR Routine 04/29/2007 5:00 AM TEACHER THEATER ARTS POC GLUCOSE Routine 04/28/2007 10:06 PM TEACHER THEATER ARTS POC GLUCOSE Routine 04/28/2007 4:47 PM TEACHER THEATER ARTS POC GLUCOSE Routine 04/28/2007 11:20 AM TEACHER THEATER ARTS PROTIME-INR Routine 04/28/2007 5:42 AM TEACHER THEATER ARTS POC GLUCOSE Routine 04/28/2007 5:27 AM TEACHER THEATER ARTS POC GLUCOSE Routine 04/27/2007 9:57 PM TEACHER THEATER ARTS POC GLUCOSE Routine 04/27/2007 5:22 PM TEACHER THEATER ARTS URINALYSIS MICROSCOPY ONLY Routine 04/27/2007 2:30 PM TEACHER THEATER ARTS URINALYSIS W/REFLEX MICROSCOPIC Routine 04/27/2007 2:30 PM TEACHER THEATER ARTS POC GLUCOSE Routine 04/27/2007 10:51 AM TEACHER THEATER ARTS PROTIME-INR Routine 04/27/2007 5:50 AM TEACHER THEATER ARTS CBC WITHOUT DIFFERENTIAL Routine 04/27/2007 5:50 AM TEACHER THEATER ARTS POC GLUCOSE Routine 04/27/2007 5:00 AM TEACHER THEATER ARTS POC GLUCOSE Routine 04/27/2007 12:29 AM TEACHER THEATER ARTS POC GLUCOSE Routine 04/26/2007 9:46 PM TEACHER THEATER ARTS POC GLUCOSE Routine 04/26/2007 5:25 PM TEACHER THEATER ARTS POC GLUCOSE Routine 04/26/2007 12:16 PM TEACHER THEATER ARTS POC GLUCOSE Routine 04/26/2007 9:26 AM TEACHER THEATER ARTS POC GLUCOSE Routine 04/26/2007 5:47 AM TEACHER THEATER ARTS documented in this encounter Results * (ABNORMAL) POC GLUCOSE (04/30/2007 10:51 AM TEACHER THEATER ARTS) GLUCOSE POC 154(H) 60 - 100 mg/dL INTERFACE SYSTEM 04/30/2007 10:5 1 AM TEACHER THEATER ARTS Justyn Bajwa MD POINT OF CARE TESTING Edited Performing Organization Address City/[facility]/ZIP Co de Phone Number INTERFACE SYSTEM Refer to clinic/hospital department * (ABNORMAL) PROTIME-INR (04/30/2007 8:22 AM TEACHER THEATER ARTS) PROTIME 23.1(H) 13.0 - 15.7 Secs INTERFACE SYSTEM Comment: As of 06 note change in normal range. INR 1.9 INTERFACE SYSTEM Comment: Expected Values for INR: DVT/PE Goal INR 2.5; range 2.0 - 3.0 Valve Replacement Tissue Goal INR 2.5; range 2.0 - 3.0 Mechanical Goal INR 3.0; range 2.5 - 3.5 POST-IA Goal INR 2.5; range 2.0 - 3.0 or Goal 3.0; range 2.5 - 3.5 Atrial Fibrillation Goal INR 2.5; range 2.0 - 3.0 Ischemic Stroke Goal INR 2.5; range 2.0 - 3.0 For additional information see Guidelines for Anticoagulation available from the pharmacy Dorene Mcintosh D. 04/30/2007 8:22 AM TEACHER THEATER ARTS Justyn Bajwa MD HEMATOLOGY ORDERABLES Edited Performing Organization Address City/[facility] de Phone Number INTERFACE SYSTEM Refer to clinic/hospital department * (ABNORMAL) POC GLUCOSE (04/30/2007 5:54 AM TEACHER THEATER ARTS) GLUCOSE POC 158(H) 60 - 100 mg/dL INTERFACE SYSTEM COMMENT POC Follow Protocol INTERFACE SYSTEM 04/30/2007 5:54 AM TEACHER THEATER ARTS Justyn Bajwa MD POINT OF CARE TESTING Edited Performing Organization Address City/[facility]/ZIP Co de Phone Number INTERFACE SYSTEM Refer to clinic/hospital department * (ABNORMAL) POC GLUCOSE (04/29/2007 8:20 PM TEACHER THEATER ARTS) GLUCOSE POC 205(H) 60 - 100 mg/dL INTERFACE SYSTEM COMMENT POC Follow Protocol INTERFACE SYSTEM 04/29/2007 8:20 PM TEACHER THEATER ARTS Justyn Bajwa MD POINT OF CARE TESTING Edited Performing Organization Address City/[facility] Co de Phone Number INTERFACE SYSTEM Refer to clinic/hospital department * (ABNORMAL) POC GLUCOSE (04/29/2007 5:19 PM TEACHER THEATER ARTS) GLUCOSE POC 152(H) 60 - 100 mg/dL INTERFACE SYSTEM 04/29/2007 5:19 PM TEACHER THEATER ARTS Justyn Bajwa MD POINT OF CARE TESTING Edited Performing Organization Address City/[facility] de Phone Number INTERFACE SYSTEM Refer to clinic/hospital department * (ABNORMAL) POC GLUCOSE (04/29/2007 11:05 AM TEACHER THEATER ARTS) GLUCOSE POC 147(H) 60 - 100 mg/dL INTERFACE SYSTEM 04/29/2007 11:0 5 AM TEACHER THEATER ARTS us Jutsyn Bajwa MD POINT OF CARE TESTING Edited Performing Organization Address City/[facility] de Phone Number INTERFACE SYSTEM Refer to clinic/hospital department * (ABNORMAL) POC GLUCOSE (04/29/2007 6:20 AM TEACHER THEATER ARTS) GLUCOSE POC 185(H) 60 - 100 mg/dL INTERFACE SYSTEM 04/29/2007 6:20 AM TEACHER THEATER ARTS us Justyn Bajwa MD POINT OF CARE TESTING Edited Performing Organization Address City/[facility] Co de Phone Number INTERFACE SYSTEM Refer to clinic/hospital department * (ABNORMAL) PROTIME-INR (04/29/2007 5:00 AM TEACHER THEATER ARTS) PROTIME 20.4(H) 13.0 - 15.7 Secs INTERFACE SYSTEM Comment: As of 06 note change in normal range. INR 1.6 INTERFACE SYSTEM Comment: Expected Values for INR: DVT/PE Goal INR 2.5; range 2.0 - 3.0 Valve Replacement Tissue Goal INR 2.5; range 2.0 - 3.0 Mechanical Goal INR 3.0; range 2.5 - 3.5 POST-IA Goal INR 2.5; range 2.0 - 3.0 or Goal 3.0; range 2.5 - 3.5 Atrial Fibrillation Goal INR 2.5; range 2.0 - 3.0 Ischemic Stroke Goal INR 2.5; range 2.0 - 3.0 For additional information see Guidelines for Anticoagulation available from the pharmacy Natalia Vázquez, Dorene D. 04/29/2007 5:00 AM TEACHER THEATER ARTS Justyn Bajwa MD HEMATOLOGY ORDERABLES Edited Performing Organization Address [facility] Phone Number INTERFACE SYSTEM Refer to clinic/hospital department * (ABNORMAL) POC GLUCOSE (04/28/2007 10:06 PM TEACHER THEATER ARTS) GLUCOSE POC 195(H) 60 - 100 mg/dL INTERFACE SYSTEM 04/28/2007 10:0 6 PM TEACHER THEATER ARTS Justyn Bajwa MD POINT OF CARE TESTING Edited Performing Organization Address [facility] de Phone Number INTERFACE SYSTEM Refer to clinic/hospital department * (ABNORMAL) POC GLUCOSE (04/28/2007 4:47 PM TEACHER THEATER ARTS) GLUCOSE POC 156(H) 60 - 100 mg/dL INTERFACE SYSTEM 04/28/2007 4:47 PM TEACHER THEATER ARTS Justyn Bajwa MD POINT OF CARE TESTING Edited Performing Organization Address City/[facility] de Phone Number INTERFACE SYSTEM Refer to clinic/hospital department * (ABNORMAL) POC GLUCOSE (04/28/2007 11:20 AM TEACHER THEATER ARTS) GLUCOSE POC 175(H) 60 - 100 mg/dL INTERFACE SYSTEM 04/28/2007 11:2 0 AM TEACHER THEATER ARTS Justyn Bajwa MD POINT OF CARE TESTING Edited Performing Organization Address [facility] Phone Number INTERFACE SYSTEM Refer to clinic/hospital department * (ABNORMAL) PROTIME-INR (04/28/2007 5:42 AM TEACHER THEATER ARTS) PROTIME 18.5(H) 13.0 - 15.7 Secs INTERFACE SYSTEM Comment: As of 06 note change in normal range. INR 1.4 INTERFACE SYSTEM Comment: Expected Values for INR: DVT/PE Goal INR 2.5; range 2.0 - 3.0 Valve Replacement Tissue Goal INR 2.5; range 2.0 - 3.0 Mechanical Goal INR 3.0; range 2.5 - 3.5 POST-IA Goal INR 2.5; range 2.0 - 3.0 or Goal 3.0; range 2.5 - 3.5 Atrial Fibrillation Goal INR 2.5; range 2.0 - 3.0 Ischemic Stroke Goal INR 2.5; range 2.0 - 3.0 For additional information see Guidelines for Anticoagulation available from the pharmacy Natalia Vázquez Pharm D. 04/28/2007 5:42 AM TEACHER THEATER ARTS Justyn Bajwa MD HEMATOLOGY ORDERABLES Edited Performing Organization Address [facility] Phone Number INTERFACE SYSTEM Refer to clinic/hospital department * (ABNORMAL) POC GLUCOSE (04/28/2007 5:27 AM TEACHER THEATER ARTS) GLUCOSE POC 171(H) 60 - 100 mg/dL INTERFACE SYSTEM 04/28/2007 5:27 AM TEACHER THEATER ARTS Justyn Bajwa MD POINT OF CARE TESTING Edited Performing Organization Address [facility] Phone Number INTERFACE SYSTEM Refer to clinic/hospital department * (ABNORMAL) POC GLUCOSE (04/27/2007 9:57 PM TEACHER THEATER ARTS) GLUCOSE POC 185(H) 60 - 100 mg/dL INTERFACE SYSTEM 04/27/2007 9:57 PM TEACHER THEATER ARTS Justyn Bajwa MD POINT OF CARE TESTING Edited Performing Organization Address [facility] Phone Number INTERFACE SYSTEM Refer to clinic/hospital department * (ABNORMAL) POC GLUCOSE (04/27/2007 5:22 PM TEACHER THEATER ARTS) GLUCOSE POC 138(H) 60 - 100 mg/dL INTERFACE SYSTEM 04/27/2007 5:22 PM TEACHER THEATER ARTS Justyn Bajwa MD POINT OF CARE TESTING Edited Performing Organization Address [facility] Phone Number INTERFACE SYSTEM Refer to clinic/hospital department * (ABNORMAL) URINALYSIS MICROSCOPY ONLY (04/27/2007 2:30 PM TEACHER THEATER ARTS) WBC URINE None Seen 0 - 2 INTERFACE SYSTEM RBC UA 0-2 0 - 2 INTERFACE SYSTEM HYALINE CAST None Seen 0 - 2 INTERFA CE SYSTEM BACTERIA UA Few(A) None Seen INTERFAC E SYSTEM 04/27/2007 2:30 PM TEACHER THEATER ARTS Justyn Bajwa MD URINE ORDERABLES Edited Performing Organization Address [facility] Number INTERFACE SYSTEM Refer to clinic/hospital department * (ABNORMAL) URINALYSIS (04/27/2007 2:30 PM TEACHER THEATER ARTS) COLOR UA Yellow Straw INTERFACE SYSTEM CLARITY [...] Yes(A) No INTERFACE SYSTEM 04/27/2007 2:30 PM TEACHER THEATER ARTS Justyn Bajwa MD URINE ORDERABLES Edited Performing Organization Address [facility]/ZIP Co de Phone Number INTERFACE SYSTEM Refer to clinic/hospital department * (ABNORMAL) POC GLUCOSE (04/27/2007 10:51 AM TEACHER THEATER ARTS) GLUCOSE POC 173(H) 60 - 100 mg/dL INTERFACE SYSTEM 04/27/2007 10:5 1 AM TEACHER THEATER ARTS Justyn Bajwa MD POINT OF CARE TESTING Edited Performing Organization Address [facility] Phone Number INTERFACE SYSTEM Refer to clinic/hospital department * (ABNORMAL) PROTIME-INR (04/27/2007 5:50 AM TEACHER THEATER ARTS) Pathologist [facility] PROTIME 16.1(H) 13.0 - 15.7 Secs INTERFACE SYSTEM Comment: As of 06 note change in normal range. INR 1.2 INTERFACE SYSTEM Comment: Expected Values for INR: DVT/PE Goal INR 2.5; range 2.0 - 3.0 Valve Replacement Tissue Goal INR 2.5; range 2.0 - 3.0 Mechanical Goal INR 3.0; range 2.5 - 3.5 POST-IA Goal INR 2.5; range 2.0 - 3.0 or Goal 3.0; range 2.5 - 3.5 Atrial Fibrillation Goal INR 2.5; range 2.0 - 3.0 Ischemic Stroke Goal INR 2.5; range 2.0 - 3.0 For additional information see Guidelines for Anticoagulation available from the pharmacy Dorene Mcintosh. 04/27/2007 5:50 AM TEACHER THEATER ARTS us Justyn Bajwa MD HEMATOLOGY ORDERABLES Edited Performing Organization Address [facility] Phone Number INTERFACE SYSTEM Refer to clinic/hospital department * (ABNORMAL) CBC WITHOUT DIFFERENTIAL (04/27/2007 5:50 AM TEACHER THEATER ARTS) WBC 17.0(H) 4.8 - 10.8 K/ul INTERFACE [...] 0.2 K/ul INTERFACE SYSTEM 04/27/2007 5:50 AM TEACHER THEATER ARTS Justyn Bajwa MD HEMATOLOGY ORDERABLES Edited Performing Organization Address City/[facility] Co de Phone Number INTERFACE SYSTEM Refer to clinic/hospital department * (ABNORMAL) POC GLUCOSE (04/27/2007 5:00 AM TEACHER THEATER ARTS) GLUCOSE POC 226(H) 60 - 100 mg/dL INTERFACE SYSTEM 04/27/2007 5:00 AM TEACHER THEATER ARTS Justyn Bajwa MD POINT OF CARE TESTING Edited INTERFACE SYSTEM Refer to clinic/hospital department * (ABNORMAL) POC GLUCOSE (04/27/2007 12:29 AM TEACHER THEATER ARTS) GLUCOSE POC 229(H) 60 - 100 mg/dL INTERFACE SYSTEM 04/27/2007 12:2 9 AM TEACHER THEATER ARTS Justyn Bajwa MD POINT OF CARE TESTING Edited Performing Organization Address City/[facility] Co de Phone Number INTERFACE SYSTEM Refer to clinic/hospital department * (ABNORMAL) POC GLUCOSE (04/26/2007 9:46 PM TEACHER THEATER ARTS) GLUCOSE POC 266(H) 60 - 100 mg/dL INTERFACE SYSTEM 04/26/2007 9:46 PM TEACHER THEATER ARTS Justyn Bajwa MD POINT OF CARE TESTING Edited Performing Organization Address City/[facility] de Phone Number INTERFACE SYSTEM Refer to clinic/hospital department * (ABNORMAL) POC GLUCOSE (04/26/2007 5:25 PM TEACHER THEATER ARTS) GLUCOSE POC 202(H) 60 - 100 mg/dL INTERFACE SYSTEM 04/26/2007 5:25 PM TEACHER THEATER ARTS Justyn Bajwa MD POINT OF CARE TESTING Edited Performing Organization Address [facility] de Phone Number INTERFACE SYSTEM Refer to clinic/hospital department * (ABNORMAL) POC GLUCOSE (04/26/2007 12:16 PM TEACHER THEATER ARTS) GLUCOSE POC 190(H) 60 - 100 mg/dL INTERFACE SYSTEM 04/26/2007 12:1 6 PM TEACHER THEATER ARTS Justyn Bajwa MD POINT OF CARE TESTING Edited Performing Organization Address City/[facility] de Phone Number INTERFACE SYSTEM Refer to clinic/hospital department * (ABNORMAL) POC GLUCOSE (04/26/2007 9:26 AM TEACHER THEATER ARTS) GLUCOSE POC 177(H) 60 - 100 mg/dL INTERFACE SYSTEM 04/26/2007 9:26 AM TEACHER THEATER ARTS us Justyn Bajwa MD POINT OF CARE TESTING Edited Performing Organization Address City/[facility] Co de Phone Number INTERFACE SYSTEM Refer to clinic/hospital department * (ABNORMAL) POC GLUCOSE (04/26/2007 5:47 AM TEACHER THEATER ARTS) GLUCOSE POC 149(H) 60 - 100 mg/dL INTERFACE SYSTEM 04/26/2007 5:47 AM TEACHER THEATER ARTS us Justyn Bajwa MD POINT OF CARE TESTING Edited INTERFACE SYSTEM Refer to clinic/hospital department documented in this encounter Visit Diagnoses Not on filedocumented in this encounter Care Teams Draw Press Operator Relationship Specialty Start Date End Date Blossom Barney MD [address] [place] [address] PCP - General Internal Medicine 12/12/18 documented as of this encounter
--- OUTSIDE RECORDS SUMMARY | 2024-12-21 06:12 | XMS_ITS | Clinical Summary ---
Author Organization [facility] Address [address] [place] [id number] Care Team Providers Care Paste Thinner Name Role Phone Blossom Barney MD Primary Care Provider +1- [phone] Allergies Active Allergy Reactions Criticality Noted Date [...] on file Legal Sex Female 12:19 PM ELASTIC YARN TWISTER Gender Identity Not on file Sexual Orientation Not on file Last Filed Vital Signs Vital Sign Reading Time Taken Comments Blood Pressure 168/90 11/06/2020 11:20 AM CDT Pulse 74 11/06/2020 11:20 AM CDT Temperature 37 C (98.6 F) 04/19/2019 8:33 AM ELASTIC YARN TWISTER Respiratory Rate 17 04/19/2019 8:33 AM ELASTIC YARN TWISTER Oxygen Saturation - - Inhaled Oxygen Concentration [...] (#1) 2024 Medical Devices Implanted Type Area Java Sybase Developer Device Identifier Shelf Expiration Date Model / Serial / Lot Cup Pinn Sctr Grptn 52mm 1217-32-052 - [id number] Implanted:Qty: 1 on 12/26/2018 by Justyn Bajwa MD Hip Left: Hip [employer] 10/28/2028 1217-32-052 / / [id number] Head Fem Art/Kevin Cer Sz36 1365-36-310 - [id number] Implanted:Qty: 1 on 12/26/2018 by Justyn Bajwa MD Hip Left: Hip [employer] 09/28/2023 1365-36-310 / / [id number] Liner Pinn Altrx Poly 1221-36-052 - [id number] Implanted:Qty: 1 on 12/26/2018 by Justyn Bajwa MD Hip Left: Hip [employer] 10/29/2023 [id number] / / [id number] Stem Fem Actis Colr Std Sz6 1010-11-060 - [id number] Implanted:Qty: 1 on 12/26/2018 by Justyn Bajwa MD Hip Left: Hip [employer] 10/28/2028 1010-11-060 / / [id number] Plate Wrist Lcp Fusion 02.110.151 - [id number] Implanted:Qty: 1 on 10/06/2018 by Justyn Mahmood MD Plate Right: Wrist SYNTHES [employer]AT[employer] 02.110.151 / / LOAD# [id number] Screw St Loc 2.7x12mm 202.212 - [id number] Implanted:Qty: 1 on 10/06/2018 by Justyn Mahmood MD Screw Right: Wrist [employer]AT[employer] 202.212 / / LOAD# [id number] Screw St Loc 2.7x14mm 202.214 - [id number] Implanted:Qty: 1 on 10/06/2018 by Justyn Mahmood MD Screw Right: Wrist [employer]AT[employer] 202.214 / / LOAD# [id number] Screw St Loc 2.7x18mm 202.218 - [id number] Implanted:Qty: 1 on 10/06/2018 by Justyn Mahmood MD Screw Right: Wrist [employer]ES [employer]AT[employer] 202.218 / / LOAD# [id number] Screw St Loc Stdrv 3.5x16mm 212.104 - [id number] Implanted:Qty: 1 on 10/06/2018 by Justyn Mahmood MD Screw Right: Wrist [employer] 212.104 / / LOAD# [id number] Screw St Loc Stdrv 3.5x18mm 212.105 - [id number] Implanted:Qty: 1 on 10/06/2018 by Justyn Mahmood MD Screw Right: Wrist [employer] 212.105 / / LOAD# [id number] Screw St Loc Stdrv 3.5x22mm 212.107 - [id number] Implanted:Qty: 1 on 10/06/2018 by Justyn Mahmood MD Screw Right: Wrist [employer] 212.107 / / LOAD# [id number] Screw St Stdrv 3.5x18mm 02.200.018 - [id number] Implanted:Qty: 1 on 10/06/2018 by Justyn Mahmood MD Screw Right: Wrist SYNTHES-STRATEC- MAXIFACIAL 02.200.018 / / LOAD# [id number] Screw Canc 6.5x20mm 117220-000 - [id number] Implanted:Qty: 1 on 12/26/2018 by Justyn Bajwa MD Screw Left: Hip [employer] 08/28/2028 [id number] / / [id number] Screw Canc 6.5x25mm 1172--000 - [id number] Implanted:Qty: 1 on 12/26/2018 by Justyn Bajwa MD Screw Left: Hip [employer] 09/27/2028 [id number] / / [id number] Screw Glenoid Baseplate 5x38mm Bhy075 - [id number] Implanted:Qty: 1 on 04/18/2019 by Manny Castle MD Screw Right: Shoulder [employer] 04/29/2020 [id number] / / LOAD [id number] Screw Glenoid Baseplate 6.5x30mm Wtd540 - [id number] Implanted:Qty: 1 on 04/18/2019 by Manny Castle MD Screw Right: Shoulder [employer] 04/29/2020 [id number] / / LOAD [id number] Screw Mirta Ns 5x18mm Aqls [id number] - [id number] Implanted:Qty: 1 on 04/18/2019 by Manny Castle MD Screw Right: Shoulder [employer] 04/29/2020 [id number] / / LOAD [id number] Screw Mirta Ns 5x18mm Aqls Xwb571 - [id number] Implanted:Qty: 1 on 04/18/2019 by Manny Castle MD Screw Right: Shoulder [employer] 04/29/2020 [id number] / / LOAD [id number] Glenosphere Rvrs Shldr 39mm Uzw308 - [id number] Implanted:Qty: 1 on 04/18/2019 by Manny Castle MD Shoulder Right: Shoulder [employer] 08/04/2023 [id number] / / [id number] Insert Hum Ascnd Flx Rvrs +6 39mm [id number] - [id number] Implanted:Qty: 1 on 04/18/2019 by Manny Castle MD Shoulder Right: Shoulder [employer] 11/17/2023 [id number] / / [id number] Stem Hum Ascnd Flx Ptc Std Sz4b Jmb762x - [id number] Implanted:Qty: 1 on 04/18/2019 by Manny Castle MD Shoulder Right: Shoulder [employer] 01/17/2024 [id number] / / [id number] Tray Hum Ascnd Flx Ecc Rev 40d Jus983 - [id number] Implanted:Qty: 1 on 04/18/2019 by Manny Castle MD Shoulder Right: Shoulder [employer] 12/17/2023 [id number] / [id number] / [id number] Putty Dbx Dbm 2.5cc 12286 - [id number] Implanted:Qty: 1 on 10/06/2018 by Justyn Mahmodo MD Tissue Right: Wrist MUSCULOSKELETAL TRANSPLANT FOU 04/19/2019 [id number] / [id number] / 2019-04-19 Bsplt Glnod Aqls +3 25mm Implanted:Qty: 1 on 04/18/2019 by Manny Castle MD Right: Shoulder [employer] 02/24/2024 [id number] / / [id number] Procedures Procedure Name Priority Date/Time Associated Diagnosis Comments HEMOGLOBIN A1C Routine 12/12/2018 11:48 AM CDT from Last 3 Months or Most Recently Relevant to Health Maintenance Results * (ABNORMAL) HEMOGLOBIN A1C (12/12/2018 11:48 AM CDT) HEMOGLOBIN A1C 6.2(H) See comment % 12/12/2018 12:17 PM CDT [facility] EST. AVG GLUCOSE, A1C 131 mg/dL 12/12/2018 12:17 PM CDT [facility] Blood Venipuncture / Unknown 12/12/2018 11:48 AM CDT 12/12/2018 11:59 AM CDT Narrative [facility] - 12/12/2018 12:17 PM CDT HGB A1C INTERPRETATION NORMAL: <5.7% PRE-DIABETES: 5.7 - 6.4% DIABETES: 6.5% OR GREATER us Deniz Vo MD CHEMISTRY ORDERABLES Final Resu lt [facility] #[id number] [address] [place] [address] [facility] #[id number] [address] [place] [address] from Last 3 Months or Most Recently Relevant to Health Maintenance Insurance MEDICARE PART A AND B [facility] SUPP * Guarantor: [place] Account Type Relation to Patient Date of Phone Billing Address Personal/Family [address] [facility] [address] [place] [address] RX [employer] Medicare Part D RX [employer] (INTERNAL) [facility] Care Teams Paste Thinner Relationship Specialty Start Date End Date Blossom Barney MD [address] [place] [address] PCP - General 09/13/20
--- OUTSIDE RECORDS SUMMARY | 2024-12-21 06:12 | XMS_ITS | Encounter Summary ---
Author Organization [facility] Address [address] [place] [address] Care Team Providers Care Delivery Truck Driver Name Role Phone Blossom Barney MD Primary Care Provider +1- [phone] Encounter Details Date Type Department Care Team (Latest Contact Info) Description 02/09/2007 Outpatient Historical [facility] [address] [place] [id number] Joycelyn Blackburn PA NO ADDRESS ON FILE Primary Localized Osteoarthrosis, Lower Leg (Primary Dx) Social History Tobacco Use Types Packs/Day Years Used Date Smoking Tobacco: Never Assessed Comments Unknown Sex and Gender Information Value Date Recorded Sex Assigned at Not on file Legal Sex Female 3:59 AM TABLET COATER Gender Identity Not on file Sexual Orientation Not on file documented as of this encounter Plan of Treatment Not on file documented as of this encounter Visit Diagnoses Diagnosis Primary localized osteoarthrosis, lower leg- Primary documented in this encounter Care Teams Delivery Truck Driver Relationship Specialty Start Date End Date Blossom Barney MD [address] [place] [address] PCP - General Internal Medicine 12/12/18 documented as of this encounter
--- OUTSIDE RECORDS SUMMARY | 2024-12-21 06:12 | XMS_ITS | Encounter Summary ---
Author Organization [facility] Address [address] [place] [address] Care Team Providers Care Wood Heel Flap Rubber Name Role Phone Blossom Barney MD Primary Care Provider +1- [phone] Encounter Details Date Type Department Care Team (Latest Contact Info) Description 03/10/2000 Outpatient Historical [facility] Opt[facility] [address] [place] [address] Justyn Mendez, OD [address] [place] [address] Hypermetropia (Primary Dx); Presbyopia Social History Tobacco Use Types Packs/Day Years Used Date Smoking Tobacco: Never Assessed Comments Unknown Sex and Gender Information Value Date Recorded Sex Assigned at Not on file Legal Sex Female 3:59 AM CALCINER OPERATOR HELPER Gender Identity Not on file Sexual Orientation Not on file documented as of this encounter Plan of Treatment Not on file documented as of this encounter Visit Diagnoses Diagnosis Hypermetropia- Primary Presbyopia documented in this encounter Care Teams Wood Heel Flap Rubber Relationship Specialty Start Date End Date Blossom Barney MD [address] [place] [address] PCP - General Internal Medicine 12/12/18 documented as of this encounter
--- OUTSIDE RECORDS SUMMARY | 2024-12-21 06:12 | XMS_ITS | Encounter Summary ---
Author Organization [facility] Address [address] [place] [address] Care Team Providers Care Fisher Gill Net Name Role Phone Blossom Barney MD Primary Care Provider +1- [phone] Encounter Details Date Type Department Care Team (Latest Contact Info) Description 12/18/2005 Outpatient Historical [facility] [address] [place] [address] [place] [address] Theo Fuller MD [address] [place] [address] Keloid Scar (Primary Dx) Social History Tobacco Use Types Packs/Day Years Used Date Smoking Tobacco: Never Assessed Comments Unknown Sex and Gender Information Value Date Recorded Sex Assigned at Not on file Legal Sex Female 3:59 AM BACKUP SAWYER Gender Identity Not on file Sexual Orientation Not on file documented as of this encounter Plan of Treatment Not on file documented as of this encounter Visit Diagnoses Diagnosis Keloid scar- Primary documented in this encounter Care Teams Fisher Gill Net Relationship Specialty Start Date End Date Blossom aBrney MD [address] [place] [place] [address] PCP - General Internal Medicine 12/12/18 documented as of this encounter
--- OUTSIDE RECORDS SUMMARY | 2024-12-21 06:12 | XMS_ITS | Encounter Summary ---
Author Organization [facility] Address [address] [place] [address] Care Team Providers Care Die Maker Bench Stamping Name Role Phone Blossom Barney MD Primary Care Provider +1- [phone] Encounter Details Date Type Department Care Team (Latest Contact Info) Description 10/27/2005 Outpatient Historical [facility] Rheumatology- [facility] [address] [place] [address] Mario Cortes MD NO ADDRESS ON FILE Generalized Osteoarthrosis, Involving Multiple Sites (Primary Dx) Social History Tobacco Use Types Packs/Day Years Used Date Smoking Tobacco: Never Assessed Comments Unknown Sex and Gender Information Value Date Recorded Sex Assigned at Not on file Legal Sex Female 3:59 AM POLICE CADET Gender Identity Not on file Sexual Orientation Not on file documented as of this encounter Plan of Treatment Not on file documented as of this encounter Visit Diagnoses Diagnosis Generalized osteoarthrosis, involving multiple sites- Primary documented in this encounter Care Teams Die Maker Bench Stamping Relationship Specialty Start Date End Date Blossom Barney MD [address] [place] [address] PCP - General Internal Medicine 12/12/18 documented as of this encounter
--- OUTSIDE RECORDS SUMMARY | 2024-12-21 06:12 | XMS_ITS | Encounter Summary ---
Author Organization [facility] Address [address] [place] [address] Care Team Providers Care Gaming Investigator Name Role Phone Blossom Barney MD Primary Care Provider +1- [phone] Encounter Details Date Type Department Care Team (Late st Contact Info) Description 07/28/[address] [facility] Orthopedics- [address] [place] [address] [place] [address] [place] [address] Justyn Bajwa MD NO ADDRESS ON FILE Social History Tobacco Use Types Packs/Day Years Used Date Smoking Tobacco: Never Assessed Comments Unknown Sex and Gender Information Value Date Recorded Sex Assigned at Not on file Legal Sex Female 3:59 AM DIRECTOR OF RESERVATIONS Gender Identity Not on file Sexual Orientation [...] , P, dmjared Job #: Document #: [id number] cc: CTOR OF RESERVATIONS documented in this encounter Plan of Treatment Not on file documented as of this encounter Visit Diagnoses Not on filedocumented in this encounter Care Teams Gaming Investigator Relationship Specialty Start Date End Date Blossom Barney MD [address] [place] [address] PCP - General Internal Medicine 12/12/18 documented as of this encounter
--- OUTSIDE RECORDS SUMMARY | 2024-12-21 06:12 | XMS_ITS | Encounter Summary ---
Author Organization [facility] Address [address] [place] [address] Care Team Providers Care Catalyst Plant Supervisor Name Role Phone Blossom Barney MD Primary Care Provider +1- [phone] Encounter Details Date Type Department Care Team (Latest Contact Info) Description 11/22/2018 Ancillary Orders [facility] Orthopedics Orthopedic [facility] [address] [place] [phone] Justyn Bajwa MD NO ADDRESS ON FILE Acute pain of left knee Social History Tobacco Use Types Packs/Day Years Used Date Smoking Tobacco: Never Smokeless Tobacco: Never Alcohol Use Standard Drinks/Week Comments No 0 (1 standard drink = 0.6 oz pur e alcohol) Comments No Sex and Gender Information Value Date Recorded Sex Assigned at Not on file Legal Sex Female 3:59 AM DISPENSING AND MEASURING OPTICIAN Gender Identity Not on file Sexual Orientation Not on file documented as of this encounter Plan of Treatment Not on file documented as of this encounter Visit Diagnoses Diagnosis Acute pain of left knee documented in this encounter Care Teams Catalyst Plant Supervisor Relationship Specialty Start Date End Date Blossom Barney MD [address] [place] [address] PCP - General Internal Medicine 12/12/18 documented as of this encounter
--- OUTSIDE RECORDS SUMMARY | 2024-12-21 06:12 | XMS_ITS | Encounter Summary ---
Author Organization [facility] Address [address] [place] [address] Care Team Providers Care Dividing Machine Operator Helper Name Role Phone Blossom Barney MD Primary Care Provider +1- [phone] Encounter Details Date Type Department Care Team (Latest Contact Info) Description 02/02/2007 Outpatient Historical [facility] Orthopedics- [address] [place] 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
--- OUTSIDE RECORDS SUMMARY | 2024-12-21 06:12 | XMS_ITS | Clinical Summary ---
Author Organization [facility] Address [address] [place] [address] Care Team Providers Care Cotton Agent Name Role Phone Blossom Barney MD Primary Care Provider [phone] Allergies Active Allergy Reactions Criticality Noted Date [...] Department Care Team Description 12/08/2024 Documentation Only [facility] [address] [place] [address] Cecilio Arenas 12/08/2024 Documentation Only [facility] [address] [place] [address] Cecilio Arenas from Last 3 [...] Description 01/23/2025 11:20 AM CDT Office Visit [facility] [address] [place] [address] Cassi Patton MD [address] [place] [address] Health Maintenance Due Date Last [...] Last 3 Months Insurance Medicare Care Teams Cotton Agent Relationship Specialty Start Date End Date Blossom Barney MD [address] [place] [address] PCP - General Internal Medicine 04/11/24
--- OUTSIDE RECORDS SUMMARY | 2024-12-21 06:12 | XMS_ITS | Clinical Summary ---
Author Organization [facility] Address [address] [place] [address] Care Team Providers Care Technical Services Consultant Name Role Phone Blossom Barney MD Primary Care Provider +1- [phone] Allergies Active Allergy Reactions Criticality Noted Date [...] times daily. 60 Tablet 04/19/2019 10:21 AM TOOL AND FIXTURE REPAIRER 9 Active oxyCODONE-aceta minophen (PERCOCET) 10-325 mg TabletIndicatio ns:Status post reverse total replacement of right shoulder Take 1-2 Tablets by mouth every 4 hours as needed for Pain. Max Daily Amount: 6 Tablets 40 Tablet 04/19/2019 10:21 AM TOOL AND FIXTURE REPAIRER 9 Active mupirocin (BACTROBAN) 2 % Ointment APPLY OINTMENT TOPICALLY TO AFFECTED AREA TWICE DAILY 0 Active HYDROcodone-ahsish taminophen (NORCO) 10-325 mg Tablet Take 1 [...] on file Legal Sex Female 3:59 AM TOOL AND FIXTURE REPAIRER Gender Identity Not on file Sexual Orientation Not on file Last Filed Vital Signs Vital Sign Reading Time Taken Comments Blood Pressure 168/90 11/06/2020 11:20 AM CDT Pulse 74 11/06/2020 11:20 AM CDT Temperature 37 C (98.6 F) 04/19/2019 8:33 AM TOOL AND FIXTURE REPAIRER Respiratory Rate 17 04/19/2019 8:33 AM TOOL AND FIXTURE REPAIRER Oxygen Saturation 98% 04/19/2019 8:33 AM TOOL AND FIXTURE REPAIRER Inhaled Oxygen Concentration - - Weight 96.2 [...] (#1) 2024 Medical Devices Implanted Type Area Anodizer Device Identifier Shelf Expiration Date Model / Serial / Lot Stem Fem Actis Colr Std Sz6 1010 - [id number] Implanted:Qty: 1 on 12/26/2018 by Justyn Bajwa MD at [facility] Hip Left: Hip [employer] 10/28/2028 [id number] / / [id number] Head Fem Art/Kevin Cer Sz36 1365-36-310 - [id number] Implanted:Qty: 1 on 12/26/2018 by Justyn Bajwa MD at [facility] Hip Left: Hip [employer] 09/28/2023 1365-36-310 / / [id number] Cup Pinn Sctr Grptn 52mm 1217-32-052 - [id number] Implanted:Qty: 1 on 12/26/2018 by Justyn Bajwa MD at [facility] Hip Left: Hip [employer] 10/28/2028 1217-32-052 / / [id number] Liner Pinn Altrx Poly [id number] - [id number] Implanted:Qty: 1 on 12/26/2018 by Justyn Bajwa MD at [facility] Hip Left: Hip [employer] 10/29/2023 [id number] / / [id number] Plate Wrist Lcp Fusion 02.110.151 - [id number] Implanted:Qty: 1 on 10/06/2018 by Justyn Mahmood MD at [facility] Plate Right: Wrist SYNTHES STRATEC 02.110.151 / / LOAD# [id number] Screw St Stdrv 3.5x18mm 02.200.018 - [id number] Implanted:Qty: 1 on 10/06/2018 by Justyn Mahmood MD at [facility] Screw Right: Wrist SYNTHES-STRATEC- MAXIFACIAL 02.200.018 / / LOAD# [id number] Screw St Loc Stdrv 3.5x22mm 212.107 - [id number] Implanted:Qty: 1 on 10/06/2018 by Justyn Mahmood MD at [facility] Screw Right: Wrist SYN[employer]ES STRATEC 212.107 / / LOAD# [id number] Screw St Loc Stdrv 3.5x16mm 212.104 - [id number] Implanted:Qty: 1 on 10/06/2018 by Justyn Mahmood MD at [facility] Screw Right: Wrist SYNTHES [employer]ATEC 212.104 / / LOAD# [id number] Screw St Loc Stdrv 3.5x18mm 212.105 - [id number] Implanted:Qty: 1 on 10/06/2018 by Justyn Mahmood MD at [facility] Screw Right: Wrist SYN[employer]ES [employer]ATEC 212.105 / / LOAD# [id number] Screw St Loc 2.7x14mm 202.214 - [id number] Implanted:Qty: 1 on 10/06/2018 by Justyn Mahmood MD at [facility] Screw Right: Wrist SYNTHES [employer]ATEC 202.214 / / LOAD# [id number] Screw St Loc 2.7x18mm 202.218 - [id number] Implanted:Qty: 1 on 10/06/2018 by Justyn Mahmood MD at [facility] Screw Right: Wrist SYN[employer]ES [employer]ATEC 202.218 / / LOAD# [id number] Screw St Loc 2.7x12mm 202.212 - [id number] Implanted:Qty: 1 on 10/06/2018 by Justyn Mahmood MD at [facility] Screw Right: Wrist SYNTHES [employer]ATEC 202.212 / / LOAD# [id number] Screw Canc 6.5x25mm 1172-25-000 - [id number] Implanted:Qty: 1 on 12/26/2018 by Justyn Bajwa MD at [facility] Screw Left: Hip [employer] 09/27/2028 [id number] / / [id number] Screw Canc 6.5x20mm 1172-20-000 - [id number] Implanted:Qty: 1 on 12/26/2018 by Justyn Bajwa MD at [facility] Screw Left: Hip [employer] 08/28/2028 [id number] / / [id number] Screw Glenoid Baseplate 6.5x30mm Cho926 - [id number] Implanted:Qty: 1 on 04/18/2019 by Manny Castle MD at [facility] Screw Right: Shoulder [employer] 04/29/2020 [id number] / / LOAD [id number] Screw Mirta Ns 5x18mm Aqls Mvr000 - [id number] Implanted:Qty: 1 on 04/18/2019 by Manny Castle MD at [facility] Screw Right: Shoulder [employer] 04/29/2020 [id number] / / LOAD [id number] Screw Mirta Ns 5x18mm Aqls Rqw399 - [id number] Implanted:Qty: 1 on 04/18/2019 by Manny Castle MD at [facility] Screw Right: Shoulder [employer] 04/29/2020 [id number] / / LOAD [id number] Screw Glenoid Baseplate 5x38mm Bmo112 - [id number] Implanted:Qty: 1 on 04/18/2019 by Manny Castle MD at [facility] Screw Right: Shoulder [employer] 04/29/2020 [id number] / / LOAD [id number] Glenosphere Rvrs Shldr 39mm Gcr889 - [id number] Implanted:Qty: 1 on 04/18/2019 by Manny Castle MD at [facility] Shoulder Right: Shoulder [employer] 08/04/2023 [id number] / / [id number] Insert Hum Ascnd Flx Rvrs +6 39mm [id number] - [id number] Implanted:Qty: 1 on 04/18/2019 by Manny Castle MD at [facility] Shoulder Right: Shoulder [employer] 11/17/2023 [id number] / / [id number] Stem Hum Ascnd Flx Ptc Std Sz4b Ajp382k - [id number] Implanted:Qty: 1 on 04/18/2019 by Manny Castle MD at [facility] Shoulder Right: Shoulder [employer] INC 01/17/2024 [id number] / / [id number] Tray Hum Ascnd Flx Ecc Rev 40d Rdz950 - [id number] Implanted:Qty: 1 on 04/18/2019 by Manny Castle MD at [facility] Shoulder Right: Shoulder [employer] 12/17/2023 [id number] / [id number] / [id number] Putty Dbx Dbm 2.5cc 97358 - [id number] Implanted:Qty: 1 on 10/06/2018 by Justyn Mahmood MD at [facility] Tissue Right: Wrist MUSCULOSKELETAL TRANSPLANT FOU 04/19/2019 [id number] / [id number] / 2019-04-19 Bsplt Glnod Aqls +3 25mm Implanted:Qty: 1 on 04/18/2019 by Manny Castle MD at [facility] Right: Shoulder [employer] 02/24/2024 [id number] / / [id number] Procedures Procedure Name Priority Date/Time Associated Diagnosis Comments HEMOGLOBIN A1C Routine 12/12/2018 11:48 AM CDT from Last 3 Months or Most Recently Relevant to Health Maintenance Results * (ABNORMAL) HEMOGLOBIN A1C (12/12/2018 11:48 AM CDT) HEMOGLOBIN A1C 6.2(H) See comment % 12/12/2018 12:17 PM CDT [facility] EST. AVG GLUCOSE, A1C 131 mg/dL 12/12/2018 12:17 PM CDT [facility] Blood Venipuncture / Unknown 12/12/2018 11:48 AM CDT 12/12/2018 11:59 AM CDT Narrative [facility] - 12/12/2018 12:17 PM CDT HGB A1C INTERPRETATION NORMAL: <5.7% PRE-DIABETES: 5.7 - 6.4% DIABETES: 6.5% OR GREATER us Deniz Vo MD CHEMISTRY ORDERABLES Final Resu lt [facility] #[id number] [address] [place] [id number] from Last 3 Months or Most Recently Relevant to Health Maintenance Insurance MEDICARE PART A AND B [facility] RX AETNA Medicare Part D RX [employer] (INTERNAL) [facility] Internal Plans Advance Directives For more information, please contact: [phone] * Full Code (Latest Code Status on File) Date Activated Date Inactivated Comments 04/18/2019 2:22 PM 04/19/2019 1:20 PM * Full Code Date Activated Date Inactivated Comments 04/18/2019 7:23 AM 04/18/2019 2:22 PM * Full Code Date Activated Date Inactivated Comments 12/26/2018 6:37 PM 12/29/2018 3:57 PM * Full Code Date Activated Date Inactivated Comments 12/26/2018 1:09 PM 12/26/2018 6:37 PM Care Teams Technical Services Consultant Relationship Specialty Start Date End Date Blossom Barney MD [address] [place] [address] PCP - General Internal Medicine 12/12/18
--- OUTSIDE RECORDS SUMMARY | 2024-12-21 06:12 | XMS_ITS | Encounter Summary ---
Author Organization [facility] Address [address] [place] [address] Care Team Providers Care Chemical Engineering Technologist Name Role Phone Blossom Barney MD Primary Care Provider +1- [phone] Encounter Details Date Type Department Care Team (Latest Contact Info) Description 04/04/2007 Outpatient Historical [facility] Orthopedics- [address] [address] [place] [address] Justyn Bajwa MD NO ADDRESS ON FILE Primary Localized Osteoarthrosis, Pelvic Region and Thigh (Primary Dx); Pain in Limb; Primary Localized Osteoarthrosis, Hand Social History Tobacco Use Types Packs/Day Years Used Date Smoking Tobacco: Never Assessed Comments Unknown Sex and Gender Information Value Date Recorded Sex Assigned at Not on file Legal Sex Female 3:59 AM JOINT SEALER Gender Identity Not on file Sexual Orientation Not on file documented as of this encounter Plan of Treatment Not on file documented as of this encounter Visit Diagnoses Diagnosis Primary localized osteoarthrosis, pelvic region and thigh- Primary Pain in limb Pain in soft tissues of limb Primary localized osteoarthrosis, hand documented in this encounter Care Teams Chemical Engineering Technologist Relationship Specialty Start Date End Date Blossom Barney MD [address] [place] [address] PCP - General Internal Medicine 12/12/18 documented as of this encounter
--- OUTSIDE RECORDS SUMMARY | 2024-12-21 06:12 | XMS_ITS | Encounter Summary ---
Author Organization [facility] Address [address] [place] [address] Care Team Providers Care [id number] Armor Crewman Name Role Phone Blossom Barney MD Primary Care Provider +1- [phone] Encounter Details Date Type Department Care Team (Latest Contact Info) Description 01/26/2007 Outpatient Historical [facility] Orthopedics- [address] [place] [address] [place] [address] Justyn Bajwa MD NO ADDRESS ON FILE Pain in Joint, Lower Leg (Primary Dx); Primary Localized Osteoarthrosis, Lower Leg Social History Tobacco Use Types Packs/Day Years Used Date Smoking Tobacco: Never Assessed Comments Unknown Sex and Gender Information Value Date Recorded Sex Assigned at Not on file Legal Sex Female 3:59 AM BOX INSPECTOR Gender Identity Not on file Sexual Orientation Not on file documented as of this encounter Plan of Treatment Not on file documented as of this encounter Visit Diagnoses Diagnosis Pain in joint, lower leg- Primary Primary localized osteoarthrosis, lower leg documented in this encounter Care Teams [id number] Armor Crewman Relationship Specialty Start Date End Date Blossom Barney MD [address] [place] [address] PCP - General Internal Medicine 12/12/18 documented as of this encounter
--- OUTSIDE RECORDS SUMMARY | 2024-12-21 06:12 | XMS_ITS | Encounter Summary ---
Author Organization [facility] Address [address] [facility] [address] [place] [address] Phone Care Team Providers Care Shaft Sinker Name Role Phone Blossom Barney MD Primary Care Provider [phone] Encounter Details Date Type Department Care Team (Late st Contact Info) Description 04/11/2024 Orders Only [facility] [address] [facility] [address] [place] [address] Chronic kidney disease stage 3B [...] Description 01/23/2025 11:20 AM CDT Office Visit [place] [facility] [address] [place] [address] Cassi Patton MD [address] [facility] [address] [place] [address] documented as of this encounter Visit Diagnoses Diagnosis Chronic kidney disease stage 3B (HCC) documented in this encounter Care Teams Shaft Sinker Relationship Specialty Start Date End Date Blossom Barney MD [address] [place], [place] [address] PCP - General Internal Medicine 04/11/24 documented as of this encounter
--- OUTSIDE RECORDS SUMMARY | 2024-12-21 06:12 | XMS_ITS | Encounter Summary ---
Author Organization [facility] Address [address] [place] [address] Care Team Providers Care Manager Of Medical Name Role Phone Blossom Barney MD Primary Care Provider [phone]- [phone] Encounter Details Date Type Department Care Team (Latest Contact Info) Description 11/22/2018 Ancillary Orders [facility] Orthopedics Orthopedic [facility] [address] [place] [address] Justyn Bajwa MD NO ADDRESS ON FILE Acute pain of left knee Social History Tobacco Use Types Packs/Day Years Used Date Smoking Tobacco: Never Smokeless Tobacco: Never Alcohol Use Standard Drinks/Week Comments No 0 (1 standard drink = 0.6 oz pur e alcohol) Comments No Sex and Gender Information Value Date Recorded Sex Assigned at Not on file 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
--- OUTSIDE RECORDS SUMMARY | 2024-12-21 06:12 | XMS_ITS | Encounter Summary ---
Author Organization [facility] Address [address] [place] [address] Care Team Providers Care Technical Writing Lead/Mgr Name Role Phone Blossom Barney MD Primary Care Provider +1- [phone] Encounter Details Date Type Department Care Team (Late st Contact Info) Description 04/15/2007 Outpatient Historical [facility] [address] [place] [address] Justyn Bajwa MD NO ADDRESS ON FILE Social History Tobacco Use Types Packs/Day Years Used Date Smoking Tobacco: Never Assessed Comments Unknown Sex and Gender Information Value Date Recorded Sex Assigned at Not on file Legal Sex Female 3:59 AM SKATE HOP Gender Identity Not on file Sexual Orientation Not on file documented as of this encounter Plan of Treatment Not on file documented as of this encounter Procedures Procedure Name Priority Date/Time Associated Diagnosis Comments URINALYSIS MICROSCOPY ONLY Routine 04/15/2007 10:54 AM SKATE HOP URINALYSIS W/REFLEX MICROSCOPIC Routine 04/15/2007 10:54 AM SKATE HOP CBC WITH DIFFERENTIAL Routine 04/15/2007 10:10 AM SKATE HOP BASIC METABOLIC PANEL Routine 04/15/2007 10:10 AM SKATE HOP documented in this encounter Results * (ABNORMAL) URINALYSIS MICROSCOPY ONLY (04/15/2007 10:54 AM SKATE HOP) WBC URINE 3-5(A) 0 - 2 INTERFACE SYSTEM RBC UA None Seen 0 - 2 INTERFACE SYSTEM HYALINE CAST None Seen 0 - 2 INTERFA CE SYSTEM BACTERIA UA Moderate(A ) None Seen INTERFACE SYSTEM 04/15/2007 10:5 4 AM SKATE HOP Justyn Bajwa MD URINE ORDERABLES Edited Performing Organization Address [facility] Phone Number INTERFACE SYSTEM Refer to clinic/hospital department * (ABNORMAL) URINALYSIS (04/15/2007 10:54 AM SKATE HOP) COLOR UA Yellow Straw INTERFACE SYSTEM CLARITY [...] No INTERFACE SYSTEM 04/15/2007 10:5 4 AM SKATE HOP Justyn Bajwa MD URINE ORDERABLES Edited Performing Organization Address [facility] Phone Number INTERFACE SYSTEM Refer to clinic/hospital department * (ABNORMAL) BASIC METABOLIC PANEL (04/15/2007 10:10 AM SKATE HOP) GLUCOSE 181(H) 70 - 110 mg/dL INTERFACE [...] mOsm/Kg INTERFACE SYSTEM 04/15/2007 10:1 0 AM SKATE HOP Justyn Bajwa MD CHEMISTRY ORDERABLES Edited Performing Organization Address [facility] Phone Number INTERFACE SYSTEM Refer to clinic/hospital department * (ABNORMAL) CBC WITH DIFFERENTIAL (04/15/2007 10:10 AM SKATE HOP) WBC 9.3 4.8 - 10.8 K/ul INTERFACE [...] K/ul INTERFACE SYSTEM 04/15/2007 10:1 0 AM SKATE HOP us Justyn Bajwa MD HEMATOLOGY ORDERABLES Edited INTERFACE SYSTEM Refer to clinic/hospital department documented in this encounter Visit Diagnoses Not on filedocumented in this encounter Care Teams Technical Writing Lead/Mgr Relationship Specialty Start Date End Date Blossom Barney MD [address] [place] [address] PCP - General Internal Medicine 12/12/18 documented as of this encounter
--- OUTSIDE RECORDS SUMMARY | 2024-12-21 06:12 | XMS_ITS | Encounter Summary ---
Author Organization [facility] Address [address] [place] [address] Care Team Providers Care Medtronics Technician Name Role Phone Blossom Barney MD Primary Care Provider +1- [phone] Encounter Details Date Type Department Care Team (Late st Contact Info) Description 05/18/2007 Outpatient Historical [facility]- [address] [place] [address] Justyn Bajwa MD NO ADDRESS ON FILE Social History Tobacco Use Types Packs/Day Years Used Date Smoking Tobacco: Never Assessed Comments Unknown Sex and Gender Information Value Date Recorded Sex Assigned at Not on file Legal Sex Female 3:59 AM TANK ASSEMBLER Gender Identity Not on file Sexual Orientation Not on file documented as of this encounter Plan of Treatment Not on file documented as of this encounter Visit Diagnoses Not on filedocumented in this encounter Care Teams Medtronics Technician Relationship Specialty Start Date End Date Blossom Barney MD [address] [place] [address] PCP - General Internal Medicine 12/12/18 documented as of this encounter
--- OUTSIDE RECORDS SUMMARY | 2024-12-21 06:12 | XMS_ITS | Encounter Summary ---
Author Organization [facility] Address [address] [place] [address] Care Team Providers Care Final Expense Agent Name Role Phone Blossom Barney MD Primary Care Provider +1- [phone] Encounter Details Date Type Department Care Team (Late st Contact Info) Description 06/15/2007 Outpatient Historical [facility] Orthoped[facility]- [address] [place] [address] Justyn Bajwa MD NO ADDRESS ON FILE Social History Tobacco Use Types Packs/Day Years Used Date Smoking Tobacco: Never Assessed Comments Unknown Sex and Gender Information Value Date Recorded Sex Assigned at Not on file Legal Sex Female 3:59 AM SEWER SEPARATION DESIGNER Gender Identity Not on file Sexual Orientation Not on file documented as of this encounter Plan of Treatment Not on file documented as of this encounter Visit Diagnoses Not on filedocumented in this encounter Care Teams Final Expense Agent Relationship Specialty Start Date End Date Blossom Barney MD [address] [place] [address] PCP - General Internal Medicine 12/12/18 documented as of this encounter
--- OUTSIDE RECORDS SUMMARY | 2024-12-21 06:12 | XMS_ITS | Patient Health Record ---
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) Active confirmed Problem Polyneuropathy due to type 2 diabetes mellitus (212527334) Type 2 diabetes mellitus with diabetic polyneuropathy (E11.42) Active confirmed Problem 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) Active confirmed Problem Obstructive sleep apnea syndrome (57450247) Obstructive sleep apnea (adult) (pediatric) (G47.33) Active confirmed Problem Chronic pain (88826079) Other chronic pain (G89.29) Active confirmed Problem Essential (primary) hypertension (I10) Active confirmed Problem Arthropathy associated with a neurological disorder (32034059) Charcot's joint, right ankle and foot (M14.671) Active confirmed Problem Arthralgia of the ankle and/or foot (633253060) Pain in right ankle and joints of right foot (M25.571) Active confirmed Vital Signs Temperature 97.8 degrees Fahrenheit 09/07/2024 Blood pressure diastolic 57 mm Hg 09/07/2024 Oximetry 93 % 09/07/2024 Height 65 in 09/07/2024 Blood pressure systolic 142 mm Hg 09/07/2024 Weight 219.8 lbs 09/07/2024 BMI 36.57 kg/m2 09/07/2024 Encounters Encounter Location Date Provider Diagnosis [facility] [place] [place] [id number] 01/05/2024 Vidya Arcos Pain in right ankle and joints of right foot M25.571 ; Other chronic pain G89.29 ; Charcot's joint, right ankle and foot M14.671 ; Obstructive sleep apnea (adult) (pediatric) G47.33 and FPC (current) use of opiate analgesic Z79.891 [facility] [place], [place] [id number] 03/01/2024 Art Nick Pain in right ankle and joints of right foot M25.571 ; Other chronic pain G89.29 ; Charcot's joint, right ankle and foot M14.671 and Obstructive sleep apnea (adult) (pediatric) G47.33 [facility] [address] [place], [place] [id number] 05/03/2024 Art Nick Pain in right ankle and joints of right foot M25.571 ; Other chronic pain G89.29 ; Charcot's joint, right ankle and foot M14.671 and Obstructive sleep apnea (adult) (pediatric) G47.33 [facility] [address] [place], [place] [id number] 06/22/2024 Art Nick Pain in right ankle and joints of right foot M25.571 ; Other chronic pain G89.29 ; Charcot's joint, right ankle and foot M14.671 and Obstructive sleep apnea (adult) (pediatric) G47.33 [facility] [place] [employer] [address] [place], [place] [id number] 09/07/2024 Art Nick Pain in right ankle and joints of right foot M25.571 ; Other chronic pain G89.29 ; Charcot's joint, right ankle and foot M14.671 ; Essential (primary) hypertension I10 and Obstructive sleep apnea (adult) (pediatric) G47.33 Assessments Encounter Date Diagnosis (ICD Code) Assessment Notes Treatment Notes Treatment Clinical Notes Section Notes 09/07/2024 Other chronic pain (ICD-10 - G89.29) Patient reports that taking her pain medication allows her to spend more time on her feet. Plan to continue oral opioid medication management. 09/07/2024 Pain in right ankle and joints of right foot (ICD-10 - M25.571) Chronic ankle pain. 03/01/2024 Pain in right ankle and joints [...] (ICD-10 - M25.571) Chronic ankle pain. 06/22/2024 Other chronic pain (ICD-10 - G89.29) Patient reports that taking her pain medication allows her to spend more time on her feet. Plan to continue oral opioid medication management. 05/03/2024 Charcot's joint, right ankle and foot (ICD-10 - M14.671) Patient has reports benefit and less pain pain with using her leg / foot brace and she wears it regularly. Charcot foot due to diabetes mellitus as per past medical history. Patient has reported that her doctor, Dr. Oneal, told her that the foot is inoperable. 01/05/2024 Other chronic pain (ICD-10 - G89.29) [...] her that the foot is inoperable. 03/01/2024 Other chronic pain (ICD-10 - G89.29) [...] Encouraged patient to follow up with her environmental programs manager, Dr. Oneal as needed. 09/07/2024 Essential (primary) hypertension (ICD-10 - I10) Education sheet given at today's visit; patient to address with PCP. 03/01/2024 Obstructive sleep apnea (adult) (pediatric) (ICD-10 - G47.33) Patient confirms nightly use of her CPAP device. 01/05/2024 Obstructive sleep apnea (adult) (pediatric) (ICD-10 - G47.33) Patient reports partial compliance with use of her CPAP device due to neck pain. 05/03/2024 Obstructive sleep apnea (adult) (pediatric) (ICD-10 [...] told her that the foot is inoperable. 06/22/2024 Obstructive sleep apnea (adult) (pediatric) (ICD-10 - G47.33) Patient confirms nightly use of her CPAP device. 01/05/2024 FPC (current) use of opiate analgesic (ICD-10 - [...] clinic is closing due to Dr. Nick's alf; see scanned document. Terminal prescriptions were given [...] is away from home. Patient counselled regarding [employer] policy regarding failure to secure her medication. [...] Medicare Part B Claims Department [address] [address] [place] [address] [id number] GraciaAdina Self - patient is the insured [place] MEDICARE SUPPLEMENT [address] [address] [place] [address] [id number] GraciaAdina Self - patient is the insured Medical [...] Carpal tunnel release, bilateral, peform ed at [facility] Hysterectomy and appendectomy, 1972 Arthroscopic knee surgery, right, 2002 Total knee replacement, righ t, performed at [facility] in [place], [place], 2007 Cholecystectomy, 2011 Cyst removal from left foot, performed a t [facility] by Dr. Vignesh Zuñiga, 12/21/11 Ankle replacement surgery, left, perform ed at [place], 05/10/12 Hernia repair, performed at [facility] in [place], [place], 2014 Cervical fusion, performed at [facility] in [place], [place], 09/11/16 Cataract surgeries, bilateral, performed in [place], [place], 2018 Total hip replacement, left, peformed at [facility] in [place], [place], 2020 Shoulder replacement surgery , right, performed at [facility] in [place], [place], 2020 Hospitalization History Reason Date(Month/Year) Cardiac workup for chest pains, treated at [facility], 2020
--- OUTSIDE RECORDS SUMMARY | 2024-12-21 06:13 | XMS_ITS | Encounter Summary ---
Author Organization [facility] Address [address] [place] [address] Care Team Providers Care Environmental Protection Economist Name Role Phone Blossom Barney MD Primary Care Provider +1- [phone] Encounter Details Date Type Department Care Team (Late st Contact Info) Description 08/15/2018 Ancillary Orders [facility] Orthopedics Orthopedic [facility] [address] [place] [address] [facility], External Provider [address] [place] [address] Pain Social History Tobacco Use Types Packs/Day Years Used Date Smoking Tobacco: Never Smokeless Tobacco: Never Alcohol Use Standard Drinks/Week Comments No 0 (1 standard drink = 0.6 oz pur e alcohol) Comments No Sex and Gender Information Value Date Recorded Sex Assigned at Not on file Legal Sex Female 3:59 AM DELI MANAGER Gender Identity Not on file Sexual Orientation Not on file documented as of this encounter Plan of Treatment Not on file documented as of this encounter Results * MRI PRIOR STUDY (06/09/2017 12:00 PM DELI MANAGER) Narrative 08/15/2018 8:27 AM CDT This exam was auto finalized to allow images to be scanned to PACS. External Provider [facility] MR ORDERABLES Final Resu lt documented in this encounter Visit Diagnoses Diagnosis Pain Generalized pain Pain Generalized pain documented in this encounter Care Teams Environmental Protection Economist Relationship Specialty Start Date End Date Blossom Barney MD [address] [place] [address] PCP - General Internal Medicine 7/15/19 documented as of this encounter
--- OUTSIDE RECORDS SUMMARY | 2024-12-21 06:13 | XMS_ITS | Encounter Summary ---
Author Organization [facility] Address [address] [place] [address] Care Team Providers Care Machine Setter Sheet Metal Name Role Phone Blossom Barney MD Primary Care Provider +1- [phone] Reason for Referral * Radiology Services (Routine) - Closed Specialty Diagnoses / Procedures Referred By Rojelio coleman Referred To Contact Orthopedic Surgery Diagnoses Hip pain, right Procedures US GUIDE NEEDLE PLACEMENT Tony Feldman MD Phone: tel: fax: [facility] [address] [place] [address] Phone: tel: fax: Referral ID Status Reason Start Date Expiration Date Visits Requested Visits Authorized [id number] Closed Ordering Department To Schedule 06/22/2018 07/23/2019 1 1 TER TECHNICIAN Encounter Details Date Type Department Care Team (Late st Contact Info) Description 06/22/2018 Ancillary Orders [address] [place] [address] Tony Feldman MD [address] [place] [address] Hip pain, right Social History Tobacco Use Types Packs/Day Years Used Date Smoking Tobacco: Never Smokeless Tobacco: Never Alcohol Use Standard Drinks/Week Comments No 0 (1 standard drink = 0.6 oz pur e alcohol) Comments No Sex and Gender Information Value Date Recorded Sex Assigned at Not on file Legal Sex Female 3:59 AM THEATER TECHNICIAN Gender Identity Not on file Sexual Orientation Not on file documented as of this encounter Plan of Treatment Not on file documented as of this encounter Results * US GUIDE NEEDLE PLACEMENT (06/23/2018 9:17 AM THEATER TECHNICIAN) Anatomical Region Laterality Modality Ultrasound Narrative 06/27/2018 10:57 AM THEATER TECHNICIAN The anatomy was visualized under ultrasound. The [...] thigh documented in this encounter Care Teams Machine Setter Sheet Metal Relationship Specialty Start Date End Date Blossom Barney MD [address] [place] [address] PCP - General Internal Medicine 12/12/18 documented as of this encounter
--- OUTSIDE RECORDS SUMMARY | 2024-12-21 06:13 | XMS_ITS | Patient Health Record ---
Author Organization [facility] Address [address] [place] [address] Care Team Providers Care Sports Journalist Name Role Phone Blossom Barney MD Primary Care Provider Unavailab Art Rashid Unavailable [phone] Vane NOEL, [facility] Unavailable Unavailable Reason For Referral No Information [...] W/U Status Risk Notes Problem Rheumatoid arthritis (32343683) Rheumatoid arthritis with rheumatoid factor of right hand without organ or systems involvement (M05.741) Active confirmed Problem Rheumatoid arthritis (92625844) Rheumatoid arthritis with rheumatoid factor of left hand without organ or systems involvement (M05.742) Active confirmed Problem Anemia of chronic disorder (334664022) Anemia in chronic illness (D63.8) Active confirmed Plan Of Treatment No Information Insurance Providers Payer Name Payer Address Payer Phone Subscriber Number Group Number Insured Name Patient Relationship to Insured Coverage Start Date Coverage End Date [place] [address] [address] [place] [address] [phone] [id number] Adina Gracia Self - patient is the insured [address] [phone] [id number] Adina Gracia Self - patient is the insured [facility] [address] [place] [address] [id number] Adina Gracia Self - patient is the insured Medical (General) History Medical History History ICD Code arthritis anemia DM hernia transfusions HTN Bronchitis IBS osteoporosis sleep apnea Surgical History Surgery Date(Month/Year) complete hysterectomy in 1973 Shoulder replacement in 2017 Ankle replacement in 2019 Knee in 2012 Hip replacement in 2006 Hernia in 2018 Hospitalization History Reason Date(Month/Year) see surgical hx
--- OUTSIDE RECORDS SUMMARY | 2024-12-21 06:13 | XMS_ITS | Encounter Summary ---
Author Organization [facility] Address [address] [place] [address] Care Team Providers Care Superintendent Renting Managing Name Role Phone Blossom Barney MD Primary Care Provider +1- [phone] Encounter Details Date Type Department Care Team (Late st Contact Info) Description 06/09/2018 Ancillary Orders [facility] Orthopedics - Orthopedic [facility] [address] [place] [address] [facility], External Provider [address] [place], [place] [address] Pain Social History Tobacco Use Types Packs/Day Years Used Date Smoking Tobacco: Never Smokeless Tobacco: Never Alcohol Use Standard Drinks/Week Comments No 0 (1 standard drink = 0.6 oz pur e alcohol) Comments No Sex and Gender Information Value Date Recorded Sex Assigned at Not on file Legal Sex Female 3:59 AM AIR BRUSH DECORATOR Gender Identity Not on file Sexual Orientation Not on file documented as of this encounter Plan of Treatment Not on file documented as of this encounter Results * XR PRIOR STUDY (04/07/2018 12:05 PM AIR BRUSH DECORATOR) Narrative 06/09/2018 12:01 PM AIR BRUSH DECORATOR This exam was auto finalized to allow images to be scanned to PACS. us External Provider [facility] DIAGNOSTIC IMAGING ORDERAB LES Final Result * XR PRIOR STUDY (04/07/2018 12:00 PM AIR BRUSH DECORATOR) Narrative 06/09/2018 11:58 AM AIR BRUSH DECORATOR This exam was auto finalized to allow images to be scanned to PACS. us External Provider [facility] DIAGNOSTIC IMAGING ORDERAB LES Final Result * MRI PRIOR STUDY (08/27/2017 12:00 PM CDT) Narrative 06/09/2018 11:57 AM AIR BRUSH DECORATOR This exam was auto finalized to allow images to be scanned to PACS. us External Provider [facility] MR ORDERABLES Final Resu lt documented in this encounter Visit Diagnoses Diagnosis Pain Generalized pain Pain Generalized pain Pain Generalized pain Pain Generalized pain documented in this encounter Care Teams Superintendent Renting Managing Relationship Specialty Start Date End Date Blossom Barney MD [address] [place] [address] PCP - General Internal Medicine 12/12/18 documented as of this encounter
--- OUTSIDE RECORDS SUMMARY | 2024-12-21 06:13 | XMS_ITS | Encounter Summary ---
Author Organization [facility] Address [address] [place] [address] Care Team Providers Care Supervisor Burling And Joining Name Role Phone Blossom Barney MD Primary Care Provider +1- [phone] Reason for Referral * Radiology Services (Routine) - Closed Specialty Diagnoses / Procedures Referred By Rojelio coleman Referred To Contact Orthopedic Surgery Diagnoses Hip pain, left Procedures US GUIDE NEEDLE PLACEMENT Tony Feldman MD Phone: tel: fax: [facility] [address] [address] Phone: tel: fax: Referral ID Status Reason Start Date Expiration Date Visits Requested Visits Authorized [id number] Closed Ordering Department To Schedule 09/21/2018 10/22/2019 1 1 Encounter Details Date Type Department Care Team (Late st Contact Info) Description 09/21/2018 Ancillary Orders [address] [address] Tony Feldman MD [address] [place] [address] Hip pain, left Social History Tobacco Use Types Packs/Day Years Used Date Smoking Tobacco: Never Smokeless Tobacco: Never Alcohol Use Standard Drinks/Week Comments No 0 (1 standard drink = 0.6 oz pur e alcohol) Comments No Sex and Gender Information Value Date Recorded Sex Assigned at Not on file Legal Sex Female 3:59 AM QUEEN'S COUNSEL Gender Identity Not on file Sexual Orientation [...] thigh documented in this encounter Care Teams Supervisor Burling And Joining Relationship Specialty Start Date End Date Blossom Barney MD [address] [place] [address] PCP - General Internal Medicine 12/12/18 documented as of this encounter
--- NOTE | 2024-12-21 07:19 | PC.NURSE ---
This nurse took report from JOSE ALFREDO Lozano in ER at 718.
[2024-12-21] MEDS: ATORVASTATIN 10 MG TABLET 20 MG PO (07:59)
[2024-12-21] MEDS: FUROsemide 10 mg/mL SDV 4mL 40 MG IVP ×3 (07:59→17:39)
--- NOTE | 2024-12-21 08:52 | PHA.VACGOAL ---
Vancomycin Goal - Goal Vancomycin Goal:: 15-20 mg/L Vancomycin Indication:: Pneumonia - Therapy Current therapy:: Other Antibiotic Day of therpy:: Day [1]of [] . Actual body weight (kg): 229 lb 4 oz - Data Labs: WBC 18.97 10^3/uL (3.29-11.43) H 12/21/24 04:17 RBC 2.85 10^6/uL (3.85-5.65) L 12/21/24 04:17 Hgb 7.70 g/dL (11.27-16.99) L 12/21/24 04:17 Hct 26.1 % (36-47) L 12/21/24 04:17 MCV 91.6 fl (85-98) 12/21/24 04:17 MCH 27.0 pg (27-33) 12/21/24 04:17 MCHC 29.5 g/dL (30-55) L 12/21/24 04:17 RDW 15.9 % (12.1-15.1) H 12/21/24 04:17 Sodium 131 mmol/L (136-145) L 12/21/24 04:17 Potassium 4.4 mmol/L (3.5-5.1) 12/21/24 04:17 Chloride 95 mmol/L (98-107) L 12/21/24 04:17 Carbon Dioxide 18 mmol/L (22-29) L 12/21/24 04:17 Anion Gap 22.4 (5-19) H 12/21/24 04:17 BUN 73 mg/dL (8-23) H 12/21/24 04:17 Creatinine 3.7 mg/dL (0.5-0.9) H 12/21/24 04:17 GFR Calculation Not Reportable 12/21/24 04:17 Treatment plan:: new consult Regimen:: TREATMENT OF SUSPECTED PNEUMONIA. PATIENT SCR ELEVATED AT 3.7. DUE TO RENAL FUNCTION, WILL FOLLOW PULSE DOSE PROTOCOL. BEGINNING PATIENT ON 2000MG VANCOMYCIN, WILL OBTAIN TROUGH AFTER 24 HOURS PER PROTOCOL.
[2024-12-21] MEDS: cefepime 2,000 mg SDV 2000 MG IVP (09:18)
[2024-12-21 09:20] LABS: Lactic Sepsis W/Reflex 1.3 mmol/L (0.5-2.2)
[2024-12-21 09:48] LABS: MRSA PCR OZH (swab) NOT DETECTED (Not Detecte)
[2024-12-21 10:16] LABS: Glucose Urine UA Negative (Normal); Nitrate Urine Negative (Negative); Specific Gravity, Urine 1.010 (1.005-1.030)
[2024-12-21 10:21] LABS: Add Urine Microscopic? YES
[2024-12-21 10:28] LABS: UA Slide Review UA Slide Review Perf
--- NOTE | 2024-12-21 11:00 | PC.NURSE ---
Addendum entered by Jessie Rosas LPN 12/21/24 11:47: Pt down to ICU 9 at 1145am. JOSE ALFREDO Guerrero assumed care of pt at that time. Original Note: This nurse called report to JOSE ALFREDO Guerrero in ICU at 1058. Pt transferring to room ICU 9.
[2024-12-21 11:13] LABS: ABG PCO2 45.9 mmHg (35-45); ABG PH Result 7.24 (7.35-7.45); Arterial Blood Gas Hematocrit 24.9 % (37-47); Blood Gas LPM 3.0 %; Blood Gas Operator Identificat AMH; Blood Gas Sample Site Brachial, right; Blood Gas Sample Type Arterial; HCO3 ABG 19.8 mmol/L (22-26); PO2 ABG 58.3 mmHg (80.0-100.0); PO2 FiO2 Ratio Arterial Blood 182
--- NOTE | 2024-12-21 12:46 | XR_ITS ---
WS: [id number] Portable AP supine chest, 12/21/2024 Clinical Data: Post PICC insertion Comparison: Portable chest, 12/20/2024. Findings: The right PICC line ends in the superior vena cava. No pneumothorax is seen. XR/XR chest 1V portable [id number] Impression: Satisfactory placement of right PICC line.
[2024-12-21 13:11] LABS: Ferritin 500 ng/mL (15-150); Iron 39 ug/dL (37-145)
--- NOTE | 2024-12-21 14:18 | P.PN_ITS ---
Subjective 2 Subjective: Patient was seen this morning, she is sitting at the side of bed, telling me that she is short of breath, she feels like she is going to due to the shortness of breath, she has tachypnea, tachycardia, nasopharynx with suprasternal retractions intercostal retractions, nasal flaring, diffuse crackles wheezing, anasarca, 2+ pitting edema - She is short of breath with a few word s - Discussed with nursing staff will plac e her on BiPAP and move her to the ICU - Discussed with patient my concerns for acute hypoxic hypercarbic respiratory failure from CHF, and fluid overload, pulm edema - There is also concern for pneumonia gi nubia her CT chest findings, she has been started on broad-spectrum antibiotic therapy there is also concern for sepsis, and acute kidney injury - Will place Lion catheter, monitor uri ne output consult nephrology -Discussed with patient will continue wi th IV diuresis, discussed with patient that if her urine output does not improve she will likely require dialysis for fluid overload and respiratory failure she tells me she wants to think of this -Discussed with her goals of care, she i s agreeable to move down to ICU, she wants to be a full code, but tells me that if the likelihood of meaningful recovery is unlikely she wants life-sustaining measures to be stopped, she wants a trial of of resuscitation, trial of intubation, but if she were not to have a likelihood of meaningful recovery, remain on life support, remain on artificial support she will withhold life-sustaining measures to be stopped - Patient was moved down to ICU Vitals/I&O/Wt Last Vital Signs Temp 97.5 F L 12/21/24 08:00 Pulse 56 L 12/21/24 13:44 Resp 18 12/21/24 13:39 BP 135/64 12/21/24 08:00 Pulse Ox 100 12/21/24 13:39 O2 Del Method BiPAP 12/21/24 13:39 O2 Flow Rate 2.5 12/21/24 08:00 FiO2 30 12/21/24 13:39 12/20/24 12/21/24 12/21/24 22:59 06:59 14:59 Intake Total 640 / 640 Output Total 400 / 400 Balance -400 / -400 640 / 640 Weight last 48 hrs Weight 103.986 kg Weight 95.254 kg Physical Exam 2 Const: COMMON NORMALS: no acute distress and patient oriented x3 Eye: COMMON NORMALS: Equal, round and reactive pupils present and EOMs intact bilaterally PUPIL: Yes Equal, round and reactive pupils present Lymph: LYMPHATIC: no lymphadenopathy noted Resp: EFFORT & INSPECTION: Yes abnormal respiratory pattern, Yes tachypneic, Yes respiratory distress, Yes retractions intercostal and supraclavicular and Yes uses accessory muscles AUSCULTATION: crackles Cardio: COMMON NORMALS: regular rate, regular rhythm, S1 normal heart sound present and S2 normal heart sound present RATE: regular rate RHYTHM: r egular rhythm HEART SOUNDS: S1 normal heart sound present and S2 normal heart sound present GI: COMMON NORMALS: Normal to inspection, nondistended, normoactive bowel sounds present and non-tender : COMMON NORMALS: Yes no CVA tenderness BLADDER/KIDNEY EXAM: Yes no CVA tenderness Back/Pelvis: COMMON NORMALS: no CVA tenderness Extremity: NARRATIVE EXTREMITY EXAM: 2+ edema Neuro: COMMON NORMALS: patient oriented x3, CN's II-XII intact bilaterally and moves all extremities Psych: COMMON NORMALS: mental status grossly normal Urinary Catheter Management: Lion: Cath Placed During This Visit: yes Urinary Catheter Date of Insertion: 12/21/24 Urinary Catheter Time of Insertion: 09:58 Data 12/21/24 04:17 12/21/24 04:17 A&P Assessment and plan 1. Acute hypoxemic respiratory failure: 2. Anasarca: 3. Acute kidney injury superimposed on CKD: 4. High risk medication use: 5. Leukocytosis: 6. Seronegative rheumatoid arthritis: 7. CHF exacerbation: 8. Acute respiratory distress: 9. Pneumonia: 10. NSTEMI (non-ST elevated myocardial infarction): 11. Acute anemia: 12. Congestive heart failure: 13. Coronary artery disease: 14. Benign essential hypertension with target blood pressure below 140/90: 15. Increased anion gap metabolic acidosis: 16. Sepsis: Plan: Acute hypoxic hypercarbic respiratory failure - Multifactorial - From systolic CHF exacerbation - From multifocal pneumonia -Acute respiratory distress CT chest CT/[place] [id number] IMPRESSION: 1. Small bilateral pleural effusions with atelectatic changes in the lung bases. 2. Multiple prominent mediastinal lymph nodes measuring up to 10 mm in short axis. 3. There is an irregular pulmonary nodule in the right upper lobe measuring 16 x 14 mm (series 5, image 18) and a subsolid nodule in the left upper lobe measuring up to 18 x 17 mm (series 5, image 24). While this may represent multifocal multi lobar pneumonia true pulmonary nodules can not be excluded and in the absence of a known primary malignancy the Fleischner -Immunocompromise state Plan -Moved to ICU - Continue BiPAP therapy - Lasix 40 IV twice daily - Monitor urine output, monitor creatinine - Vancomycin - Cefepime -DuoNeb - Blood cultures, sputum culture - Monitor respiratory status closely - Full code - Heparin for DVT prophylaxis Multifocal pneumonia Sepsis - Secondary to pneumonia Systolic CHF exacerbation - Cardiac echo ordered NSTEMI - No chest pain complaints - Aspirin, statin - History of cardiac cath 03/2020 Diagnostic Findings * No significant disease noted in the Left Main, LAD, Circumflex, or RCA coronary arteries. * Mid Circumflex Coronary Artery: has lesion. * Coronary angiography shows right dominance. * The left main is a medium caliber vessel with minimal intimal irregularities. * The left anterior descending artery is a relatively small to medium caliber vessel with diffuse disease, lesions ranging anywhere from 30 to 50%. The distal artery is a small caliber vessel which wrap around the LV apex minimally. The artery gives off multiple diagonal branches. The second diagonal branch was found to have 40 to 50% diffuse narrowing in the proximal segment. The other diagonal branches were found to have mild diffuse disease. * The circumflex artery is a medium to large caliber vessel which was found to have around 40% proximal segmental narrowing. The first obtuse marginal branch is a relatively small caliber vessel with 50 to 60% diffuse narrowing. Right after the second obtuse marginal branch, the artery appears to have around 50 to 60% tubular narrowing with some haziness. No other significant stenotic lesions were seen. * The right coronary artery is a medium caliber dominant vessel which also was found to have mild to moderate diffuse disease in the proximal and distal segment. The lesions were ranging anywhere from 30 to 50%. The PDA branch was found to have a proximal around 40% narrowing involving the ostium. No other significant stenotic lesions were noted. - Cardiac echo ordered Acute kidney injury -Creatinine 3.7 - Monitor urine output, monitor creatinine - Nephrology consulted Liver cirrhosis? Type 2 diabetes mellitus, low-dose sliding scale DVT prophylaxis: Heparin 5000 subcutaneously every 12 hours Full code PDMP PDMP Reviewed: Not Reviewed Attestations 2 Medical Necessity Statement*: Patient requires hospitalization for acute hypoxic respiratory failure secondary to CHF, pneumonia, sepsis, acute kidney injury, NSTEMI, increased anion gap metabolic acidosis Diagnoses Acute hypoxemic respiratory failure J96.01 Anasarca R60.1 Acute kidney injury superimposed on CKD N17.9; N18.9 High risk medication use Z79.899 Leukocytosis D72.829 Seronegative rheumatoid arthritis M06.00 CHF exacerbation I50.9 Acute respiratory distress R06.03 Pneumonia J18.9 NSTEMI (non-ST elevated myocardial infarction) I21.4 Acute anemia D64.9 Congestive heart failure I50.9 Coronary artery disease I25.10 Benign essential hypertension with target blood pressure below 140/90 I10 Increased anion gap metabolic acidosis E87.29 Sepsis A41.9
--- NOTE | 2024-12-21 14:22 | PICC.NOTE ---
Double lumen PICC placed to right brachial vein. Referred to vascular access nurse for PICC placement due to provider request. Risks and benefits discussed and informed consent obtained from pt. Right arm assessed with right brachial vein measuring 3.2 mm, straight, and apparent best choice for placement. Using sterile technique and MST, right brachial vein accessed x 1 stick. Mid-arm circumference measured 10 cm from right AC 33 cm. Trimmed cath 42 cm with 0 cm external length noted. CXR shows tip in SVC, in good position for use per radiologist. Line secured with stat-lock. Insertion site covered with Biopatch and TSM. Report given to bedside nurse, JOSE ALFREDO Guerrero.
[2024-12-21 14:28] LABS: Hematocrit 26.4 % (36-47); Hemoglobin 8.20 g/dL (11.27-16.99); Mean Corpuscular HGB Conc 31.1 g/dL (30-55); Mean Corpuscular Hemoglobin 28.0 pg (27-33); Mean Corpuscular Volume 90.1 fl (85-98); Nucleated Red Blood Cells % 0 %; Platelet Count 352 10^3/cmm (157-399); Red Blood Count 2.93 10^6/uL (3.85-5.65); White Blood Count 20.52 10^3/uL (3.29-11.43)
--- NOTE | 2024-12-21 15:20 | PM.CONSULT ---
Providers/Reason For Consult Consulting Physician/Specialty*: kommana/Nephrology Reason for Consult*: Acute on CKD Attending Physician: Alfred Hampton MD Primary Care Provider: Blossom Barney MD History of Present Illness History of Present Illness Adina Gracia is a 79 year old female Will add IV albumin. Patient is a 79-year-old female with past medical history of diabetes, hypertension chronic gout, severe rheumatoid arthritis followed by rheumatology as outpatient and is getting infliximab and prednisone therapy, chronic leukocytosis presented to the emergency department yesterday due to progressively worsening shortness of breath. Also noticed progressively worsening lower extremity edema. Patient seems to have CKD and is supposed to see an intelligence applications in December and has not seen nephrology in the past. In the ER patient was hypoxic currently receiving 3 L O2 by nasal cannula and intermittently requiring BiPAP and is transferred to ICU for close monitoring. Lab data in the ER showed sodium of 129 CO2 of 14 creatinine of 3.4 white count was 20,000 and hemoglobin was 8.2. Chest x-ray with no acute findings. CT scan of the abdomen has showed evidence of liver cirrhosis but patient is not aware of that. Medications/Allergies Home Medications ?Medication ?Instructions ?Recorded ?Confirmed ?Last Taken ?Type diclofenac sodium 1 % topical gel 2 - 4 gm topical BID PRN UNKNOWN 08/31/19 11/07/24 06/20/21 History (Voltaren) duloxetine 60 mg capsule,delayed 60 mg PO DAILY 08/31/19 11/07/24 06/20/21 History release (Cymbalta) pravastatin 20 mg tablet 20 mg PO DAILY 08/31/19 11/07/24 06/20/21 History Vitamin B-2 1 tab PO DAILY 03/31/20 11/07/24 06/20/21 History aspirin 81 mg tablet,delayed 81 mg PO DAILY PRN UNKNOWN 03/31/20 11/07/24 06/20/21 History release metoprolol tartrate 50 mg tablet 50 mg PO BID 03/31/20 11/07/24 06/20/21 History turmeric 1 tab PO DAILY 03/31/20 11/07/24 06/20/21 History insulin degludec 100 unit/mL (3 60 unit (0.6 mL) SUBCUT DAILY #0 mL 04/04/20 11/07/24 06/20/21 Rx mL) subcutaneous pen (Tresiba FlexTouch U-100 insulin) gabapentin 300 mg capsule 300 mg PO TID 01/07/22 11/07/24 Unknown History hydrocodone bitartrate PO 01/07/22 11/07/24 Unknown History AFO to right #1 ea 06/17/22 11/07/24 Unknown Rx infliximab-abda 100 mg intravenous IV 08/19/22 11/07/24 Unknown History solution (Renflexis) promethazine-DM 6.25 mg-15 mg/5 mL 5 - 10 ml PO Q6H PRN cough #200 mL 03/11/23 11/07/24 Unknown Rx oral syrup albuterol sulfate 2.5 mg/3 mL 2.5 mg (3 mL) inhalation Q4H PRN 03/15/23 11/07/24 Unknown Rx (0.083 %) solution for nebulization shortness of breath or wheezing #180 mL ipratropium 0.5 mg-albuterol 3 mg 3 ml inhalation QID PRN wheezing 03/15/23 11/07/24 Unknown Rx (2.5 mg base)/3 mL nebulization #180 mL soln nebulizers #1 ea 05/21/23 11/07/24 Unknown Rx mupirocin 2 % topical ointment 1 applic topical BID #22 grams 07/27/23 11/07/24 Unknown Rx albuterol sulfate 90 mcg/actuation See Rx Instructions .Route 08/20/23 11/07/24 Unknown Rx aerosol inhaler .COMPLEX #9 grams clobetasol 0.05 % topical cream topical 04/12/24 11/07/24 Unknown History tizanidine 4 mg tablet mg PO 04/12/24 11/07/24 Unknown History prednisone 5 mg tablet 5 mg PO DAILY PRN prn joint pain 06/22/24 11/07/24 Unknown Rx flare #60 tabs amlodipine 10 mg tablet mg PO 07/25/24 11/07/24 Unknown History empagliflozin 10 mg tablet mg PO 07/25/24 11/07/24 Unknown History (Jardiance) insulin aspart SUBCUT 07/25/24 11/07/24 Unknown History (niacinamide)(U-100) 100 unit/mL(3 mL) subcutaneous pen (Fiasp FlexTouch U-100 Insulin) allopurinol 100 mg tablet 100 mg PO BID #180 tabs 12/12/24 Unknown Rx Allergies Allergy/AdvReac Type Severity Reaction Status Date / Time latex Allergy Mild rash Verified 11/07/24 09:49 Penicillins Allergy Mild rash Verified 11/07/24 09:49 Sulfa (Sulfonamide Allergy Mild rash Verified 11/07/24 09:49 Antibiotics) sulindac Allergy Mild rash Verified 11/07/24 09:49 doxycycline Allergy ADR-Itching Verified 11/07/24 09:49 naproxen Allergy rash Verified 11/07/24 09:49 Current Medications Generic Name Dose Route Start Last Admin Trade Name Freq PRN Reason Stop Dose Admin Albuterol/Ipratropium 3 ml 12/21/24 02:00 12/21/24 13:39 Ipratropium-Albuterol 3 Ml Neb INHALATION 3 ml Q6H.RESP KIMI Administration Allopurinol 100 mg 12/21/24 09:00 12/21/24 07:59 Allopurinol 100 Mg Tablet PO 100 mg BID KIMI Administration Atorvastatin Calcium 20 mg 12/21/24 09:00 12/21/24 07:59 Atorvastatin 10 Mg Tablet PO 20 mg DAILY KIMI Administration Cefepime HCl 2,000 mg 12/21/24 09:15 12/21/24 09:18 Cefepime 2,000 Mg Sdv IVP 2,000 mg Q24H KIMI Administration Protocol Duloxetine HCl 60 mg 12/21/24 09:00 12/21/24 07:59 Duloxetine 60 Mg Capsule PO 60 mg DAILY KIMI Administration Furosemide 40 mg 12/21/24 09:45 12/21/24 10:22 Furosemide 10 Mg/Ml Sdv 4ml IVP 40 mg Q8H KIMI Administration Gabapentin 300 mg 12/21/24 09:00 12/21/24 14:53 Gabapentin 300 Mg Capsule PO 300 mg TID KIMI Administration Heparin Sodium (Porcine) 5,000 unit 12/20/24 23:34 12/21/24 10:22 Heparin 5,000 Unit/Ml Inj 1 Ml SUBCUT 5,000 unit Q12H KIMI Administration Insulin Human Lispro 0 unit 12/21/24 08:00 12/21/24 12:45 Insulin Lispro 100 Unit/1 Ml SUBCUT 4 unit WM&BEDTIME KIMI Administration Protocol Pantoprazole Sodium 40 mg 12/21/24 09:00 12/21/24 07:[address] 40 Mg Tablet PO 40 mg DAILY KIMI Administration Potassium Chloride 20 meq 12/21/24 14:00 12/21/24 14:53 Potassium Chloride Er 20 Meq Tablet PO 20 meq Q8H KIMI Administration PFSH Acute PFSH: Medical History (Updated 12/21/24 @ 14:27 by Alfred Hampton MD) Charcot foot due to diabetes mellitus Mass of right ankle Right ankle pain Coronary artery disease Chronic use of steroids Chronic anemia Dyslipidemia Atypical chest pain Seronegative rheumatoid arthritis of both hands Seronegative rheumatoid arthritis High risk medication use Immunization counseling Osteoarthritis Gout Surgical History Hx of total ankle replacement History of bilateral cataract extraction History of shoulder surgery History of hysterectomy History of arthroscopic knee surgery History of thumb surgery History of carpal tunnel surgery H/O total knee replacement History of laparoscopic cholecystectomy History of hip replacement Family History Sister CAD (coronary artery disease) Heart attack in her 50s and of the same. Mother Stroke Strong family history for CVA. Grandfather, mother, niece all had a CVA Other Asthma Diabetes Hypertension Denies family history of Lupus (systemic lupus erythematosus) Rheumatoid arthritis Social History Smoking and tobacco/nicotine status: never used tobacco/nicotine Alcohol intake: never Vitals/I&O/Wt Last Vital Signs Temp 97.5 F L 12/21/24 08:00 Pulse 55 L 12/21/24 14:00 Resp 21 H 12/21/24 14:00 BP 135/64 12/21/24 08:00 Pulse Ox 93 12/21/24 14:00 O2 Del Method BiPAP 12/21/24 13:39 O2 Flow Rate 2.5 12/21/24 08:00 FiO2 30 12/21/24 13:39 12/21/24 12/21/24 12/21/24 06:59 14:59 22:59 Intake Total 640 / 640 Output Total 400 / 400 Balance -400 / -400 640 / 640 Weight last 48 hrs Weight 103.986 kg Weight 95.254 kg Physical Exam Urinary Catheter Management: Lion: Cath Placed During This Visit: yes Urinary Catheter Date of Insertion: 12/21/24 Urinary Catheter Time of Insertion: 09:58 Data 12/21/24 14:17 12/21/24 04:17 A&P Assessment and plan 1. Acute kidney injury superimposed on CKD: Plan: 1. Acute on chronic kidney disease stage IV: Patient's baseline is anywhere from 1.5-2.5. On presentation creatinine is 3.4,. No obstruction seen on CT. UA with 3+ protein. - Patient currently volume overloaded with anasarca and has mild metabolic acidosis - Will add IV albumin and give Lasix after IV albumin, so far nonoliguric - Patient also have liver cirrhosis which is a new diagnosis - Given multiple comorbidities including CHF, new diagnosis of liver cirrhosis and advanced CKD, dialysis may not be well-tolerated. Also patient reported that she does not dialysis even indicated and would like conservative measures for now. - Avoid IV contrast studies, discussed with family at bedside - Also will check urine protein to creatinine ratio, follow-up SPEP UPEP, check HAYLEE and ANCA levels. 2. Diastolic CHF, repeat echo, last echo was in 2021. IV albumin and IV Lasix as above 3. Liver cirrhosis, new diagnosis needs workup 4. Metabolic acidosis, mild monitor 5. Hyponatremia, mild, likely hypovolemic 6. History of rheumatoid arthritis, on infliximab Patient evaluated using audiovisual cart. Time spent 40 minutes PDMP PDMP Reviewed: Not Reviewed Consult Attestations Medical Necessity Statement: per medicne Coding Level of Care Code Acute Code for Chg Fwd Diagnoses Acute kidney injury superimposed on CKD N17.9; N18.9
[2024-12-21 17:01] LABS: Anion Gap 23.3 (5-19); Blood Urea Nitrogen 78 mg/dL (8-23); Calcium 8.9 mg/dL (8.5-10.5); Carbon Dioxide 19 mmol/L (22-29); Chloride 92 mmol/L (98-107); Creatinine Clr Calc Pharmacy 15.3393; Glucose 118 mg/dL (65-115); Osmolality Calculated 292 mOsm/kg (285-295); Potassium 5.3 mmol/L (3.5-5.1); Sodium 129 mmol/L (136-145)
--- NOTE | 2024-12-21 23:07 | USR_ITS ---
PROCEDURE INFORMATION: Exam: US Duplex Lower Extremity Veins, Bilateral Exam date and time: 12/21/2024 12:00 AM Age: 79 years old Clinical indication: Edema, localized; Lower extremity, bilateral; Additional info: Assess for dvt TECHNIQUE: Imaging protocol: Real-time duplex ultrasound of the bilateral extremities with 2-D buckley scale, color Doppler flow and spectral waveform analysis including responses to compression and other maneuvers (when performed) with image documentation. Complete exam focused on the lower extremity veins. COMPARISON: US renal BI* [id number] 08/13/2023 10:08 AM FINDINGS: Right deep veins: Unremarkable. The common femoral, femoral, proximal profunda femoral and popliteal veins are patent without thrombus. Normal Doppler waveforms. Normal compressibility and/or augmentation response. Left deep veins: Unremarkable. The common femoral, femoral, proximal profunda femoral and popliteal veins are patent without thrombus. Normal Doppler waveforms. Normal compressibility and/or augmentation response. Superficial veins: Greater saphenous veins at the saphenofemoral junctions are patent bilaterally without thrombus. Soft tissues: Marked edema. US/[place] [id number] IMPRESSION: No evidence of deep vein thrombosis in the bilateral lower extremities.
--- NOTE | 2024-12-21 23:07 | USCV_ITS ---
Adina Gracia Age: 79 Gender: F : 1945 Exam Date: 12/21/2024 00:26 Ordering Phys: Christy Gunderson MD Technologist: ARMEN [place] [facility] [place]: CHF SOB, sats 80% obesity BP: 142 / 59 HR: 69 Rhythm: Sinus Technical Quality: Adequate MEASUREMENTS (Male / Female) Normal Values 2D ECHO LV Diastolic Diameter PLAX 5.2 cm 4.2 - 5.9 / 3.9 - 5.3 cm IVS Diastolic Thickness 1.4 cm 0.6 - 1.0 / 0.6 - 0.9 cm IVS Systolic Thickness 1.7 cm LVPW Diastolic Thickness 1.2 cm 0.6 - 1.0 / 0.6 - 0.9 cm LVPW Systolic Thickness 1.9 cm LVOT Diameter 2.0 cm LV Ejection Fraction 2D Teich 59.0 % LV Ejection Fraction MOD 4C 54.2 % LV Ejection Fraction MOD 2C 55.8 % LV Ejection Fraction 2C AL 56.1 % LA Diameter 3.8 cm Aorta at Sinotubular Diameter 2.9 cm IVC Diameter 2.1 cm M-MODE LA Ao Ratio MM 1.7 AV Cusp Separation MM 1.9 cm DOPPLER AV Peak Velocity 173.0 cm/s LVOT Peak Velocity 90.0 cm/s AV Area Cont Eq vti 1.7 cm squared AV Area Cont Eq pk 1.6 cm squared MV Peak Velocity 162.0 cm/s MV Area PHT 3.4 cm squared Mitral E to A Ratio 1.3 TV Peak Velocity 273.7 cm/s TR Peak Velocity 283.0 cm/s TR Peak Gradient 32.0 mmHg TV Peak E Velocity 104.0 cm/s PV Peak Velocity 126.0 cm/s FINDINGS Left Ventricle Normal left ventricular cavity size. Segmental wall motion abnormality with akinesis of the basal inferior wall and hypokinesis of the basal inferolateral wall. Overall ejection fraction is normal at 54%. Mild concentric left ventricular hypertrophy. Grade 2 left ventricular diastolic dysfunction. Right Ventricle The right ventricle is normal in size and function. Right Atrium The right atrium is normal in size. Left Atrium The left atrium is normal in size. Mitral Valve Mild mitral annular calcification. Mild mitral valve regurgitation. No mitral valve stenosis. Aortic Valve Mild aortic valve sclerosis without stenosis or regurgitation. Tricuspid Valve Mild tricuspid valve regurgitation. Mild pulmonary hypertension with pulmonary systolic pressure of 47 mmHg. Pulmonic Valve Structurally normal pulmonic valve without significant stenosis. There is no pulmonic regurgitation. Pericardium Normal pericardium without effusion. Aorta Normal ascending aorta dimension. IVC The inferior vena cava is dilated measuring 2.1 cm with no inspiratory collapse consistent with increased right atrial pressure. CONCLUSIONS 1. Left ventricular segmental wall motion abnormality in the basal inferior and inferolateral wall segments with overall normal ejection fraction of 54%. 2. Mild mitral valve regurgitation 3. Stage II left ventricular diastolic dysfunction 4. Mild concentric left ventricular hypertrophy 5. Mild pulmonary hypertension Juan Daniel Carbajal (Electronically Signed) Final Date: 22 December 2024 12:32 S
[2024-12-22] VITALS (51 sets, daily range): BP systolic 106–170; BP diastolic 61–112; PULSE 73–106; RESP 16–47; O2SAT 90–98; BMI 38.9
[2024-12-22] MEDS: FUROsemide 10 mg/mL SDV 4mL 40 MG IVP ×3 (01:34→16:40)
[2024-12-22 03:50] LABS: ABG PCO2 41.4 mmHg (35-45); ABG PH Result 7.27 (7.35-7.45); Arterial Blood Gas Hematocrit 25.8 % (37-47); Blood Gas Allen Test Pos; Blood Gas Operator Identificat JDB; Blood Gas Sample Site Radial, right; Blood Gas Sample Type Arterial; HCO3 ABG 19.1 mmol/L (22-26); PO2 ABG 69.9 mmHg (80.0-100.0); PO2 FiO2 Ratio Arterial Blood 233
[2024-12-22 05:55] LABS: Lactate (Lactic Acid level) 0.6 mmol/L (0.5-2.2)
[2024-12-22 06:23] LABS: Hematocrit 25.3 % (36-47); Hemoglobin 7.70 g/dL (11.27-16.99); Mean Corpuscular HGB Conc 30.4 g/dL (30-55); Mean Corpuscular Hemoglobin 27.5 pg (27-33); Mean Corpuscular Volume 90.4 fl (85-98); Nucleated Red Blood Cells % 0 %; Platelet Count 288 10^3/cmm (157-399); Red Blood Count 2.80 10^6/uL (3.85-5.65); White Blood Count 16.20 10^3/uL (3.29-11.43)
[2024-12-22 06:52] LABS: NT Pro B Type Natriuretic Pept 20951 pg/mL (0-450); Procalcitonin 1.46 ng/mL (0-0.5)
--- NOTE | 2024-12-22 07:00 | XR_ITS ---
WS: [id number] Portable AP upright chest, 12/22/2024 Clinical Data: sob Comparison: Portable chest, 12/21/2024, CT chest abdomen pelvis, 12/20/2024 Findings: No nodules or masses are seen. The nodules seen on CT chest are not apparent on this exam. The heart is enlarged. The pulmonary vascularity is not increased. No pneumonia or pneumothorax is seen. The right PICC line remains in good position. Monitor leads are on the chest wall. There is a right shoulder arthroplasty. There is arthritis of the left glenohumeral joint. There is an anterior cervical disc fusion. XR/XR chest 1V portable [id number] Impression: Cardiomegaly and small bilateral pleural effusions.
[2024-12-22 07:04] LABS: Alanine Aminotransferase 7 U/L (0-33); Albumin Level 3.3 g/dL (3.5-5.2); Alkaline Phosphatase 136 U/L (35-105); Blood Urea Nitrogen 78 mg/dL (8-23); Calcium 8.5 mg/dL (8.5-10.5); Carbon Dioxide 17 mmol/L (22-29); Chloride 91 mmol/L (98-107); Creatinine Clr Calc Pharmacy 13.9288; Globulin 3.5 g/dL (1.3-4.6); Glucose 100 mg/dL (65-115); Magnesium 2.0 mg/dL (1.7-2.3); Osmolality Calculated 289 mOsm/kg (285-295); Sodium 128 mmol/L (136-145); Total Protein 6.8 g/dL (6.6-8.7)
[2024-12-22 07:07] LABS: Anion Gap 25.4 (5-19); Aspartate Amino Transferase 12 U/L (0-32); Potassium 5.4 mmol/L (3.5-5.1)
[2024-12-22 07:30] LABS: PROTEIN, TOTAL 7.2 g/dL (6.1-8.1)
[2024-12-22] MEDS: ATORVASTATIN 10 MG TABLET 20 MG PO (09:00)
[2024-12-22] MEDS: cefepime 2,000 mg SDV 2000 MG IVP (09:01)
--- NOTE | 2024-12-22 09:19 | PC.SOCIAL ---
IMM Updated Updated pt on IMM. No questions voiced. Provided pt a copy. Initialed, dated, & timed a copy & placed in chart.
[2024-12-22] MEDS: heparin 5,000 unit/mL INJ 1 mL 5000 UNIT SUBCUT (12:20)
--- NOTE | 2024-12-22 13:03 | PC.PHAR ---
Patient states she has been drinking Apple Cider vinegar and Honey for the last few weeks.
--- NOTE | 2024-12-22 13:30 | P.CONIM_ITS ---
<Statement entered by Juan Daniel Carbajal MD - 12/23/24 12:42> Patient was evaluated and cared for in conjunction with an advanced practice practitioner.? I personally examined the patient and reviewed the chart and all pertinent data including imaging, telemetry, and laboratory results.? I discussed the patient in detail with the advanced practice practitioner.? Please see? their note for complete consult note, testing results and agreed upon plan of care for the patient. Providers/Reason For Consult 2 Consulting Physician/Specialty*: Dr Carbajal, cardiology Reason for Consult*: NSTEMI, CHF exacerbation Requesting Physician: Alfred Hampton MD Attending Physician: Alfred Hampton MD Primary Care Provider: Blossom Barney MD History of Present Illness History of Present Illness Adina Gracia is a 79 year old female with past medical history of diabetes, hypertension, CAD (coronary angiogram in 2019: LAD 30 to 50% diffuse disease small caliber vessel, second diagonal 40 to 50% proximal disease, 40% proximal circumflex disease, first OM small caliber 50 to 60% disease, 50 to 60% circumflex stenosis after the second obtuse marginal branch, 30 to 50% diffuse disease of the proximal and distal RCA, 40% ostial to proximal PDA stenosis. The circumflex lesion was evaluated with FFR found to be not hemodynamically significant at the time). She notes she has had worsening shortness of breath for the last 2 weeks, had chest pressure with exertion approximately 4 to 5 weeks ago. Recently Lasix was discontinued by the primary doctor due to worsening renal function. She notes she had some testing at [facility] approximately 4 to 5 months ago but no recent angiogram. Will request those records. Troponin series: 39-> 39-> 41. D-dimer 2.94, procalcitonin 1.46. Her baseline creatinine 1.8-2.0, was 3.4 on admission and is 3.9 today. BNP 13,432 on admission now 20,951. She is very short of breath with exertion, cannot lay flat, in fact is sitting upright in the chair. Fluid balance -1909 so far, she has received a dose of metolazone 5 mg this morning and is currently on Lasix 40 mg 3 times a day. Chest x-ray this morning shows small bilateral pleural effusions. Echocardiogram: LVEF 54%, grade 2 diastolic dysfunction, wall motion abnormality akinesis of the basal inferior wall, hypokinesis of the basal inferolateral wall. Mild mitral regurgitation, mild tricuspid regurgitation, mild pulmonary hypertension, dilated IVC. Medications/Allergies Home Medications ?Medication ?Instructions ?Recorded ?Confirmed ?Last Taken ?Type aspirin 81 mg tablet,delayed 81 mg PO DAILY PRN UNKNOW N 03/31/20 12/22/24 12/21/24 History release metoprolol tartrate 50 mg tablet 50 mg PO BID 03/31/20 12/22/24 12/21/24 08:00 History gabapentin 300 mg capsule 300 mg PO TID 01/07/2212/22 Unknown History AFO to right #1 ea 06/17/22 12/22/24 Unkn own Rx infliximab-abda 100 mg intravenous 100 mg IV Q30D 07/3012/22/24 Unknown History solution (Renflexis) nebulizers #1 ea 05/21/23 12/22/24 Unkn own Rx mupirocin 2 % topical ointment 1 applic topical BID #2 2 grams 07/27/23 12/22/24 Unknown Rx amlodipine 10 mg tablet 10 mg PO DAILY 07/25/2411/2912/21/24 08:00 History allopurinol 100 mg tablet 100 mg PO BID #180 tabs 11/2812/22/24 12/21/24 07:00 Rx Lactobacillus acidophilus and 1 cap PO DAILY 12/22/24 12/22/24 12/21/24 History rhamnosus 15 billion cell capsule (Probiotic) albuterol sulfate 90 mcg/actuation See Rx Instructions .Route .COMPLEX 12/22/24 12/22/24 Unknown History aerosol inhaler duloxetine 60 mg capsule,delayed 60 mg PO DAILY 12/22/24 12/21/24 08:00 History release furosemide 40 mg tablet 40 mg PO DAILY 12/22/2411/29 Unknown History insulin aspart U-100 100 unit/mL 24 unit SUBCUT TID 12/22/24 12/21/24 08:00 History (3 mL) subcutaneous pen (Novolog FlexPen U-100 Insulin aspart) insulin degludec 100 unit/mL (3 60 unit SUBCUT DAILY 0 12/22/24 12/22/24 12/21/24 07:00 History mL) subcutaneous pen (Tresiba FlexTouch U-100 insulin) mecobalamin (vitamin B12) 1,000 1,000 mcg PO DAILY 12/22/24 12/20/24 History mcg chewable tablet (B12 Active) oxycodone 20 mg tablet See Rx Instructions .Route . COMPLEX 12/22/24 12/22/24 Unknown History sour castillo extract 1,000 mg 1,000 mg PO DAILY 5 12/22/24 12/20/24 History capsule (Tart Castillo Extract) tizanidine 4 mg tablet See Rx Instructions .Route . COMPLEX 12/22/24 12/22/24 Unknown History turmeric 400 mg capsule 400 mg PO DAILY 12/22/2412/20/24 History Allergies Allergy/AdvReac Type Severity Reaction Status Date / Time latex Allergy Mild rash Verified 11/07/24 09:49 Penicillins Allergy Mild rash Verified 11/07/24 09:49 Sulfa (Sulfonamide Allergy Mild rash Verified 11/07/24 09:49 Antibiotics) sulindac Allergy Mild rash Verified 11/07/24 09:49 doxycycline Allergy ADR-Itching Verified 11/07/24 09:49 naproxen Allergy rash Verified 11/07/24 09:49 Current Medications Generic Name Dose Route Start Last Admin Trade Name Freq PRN Reason Stop Dose Admin Albuterol/Ipratropium 3 ml 12/21/24 02:00 12/22/24 13:33 Ipratropium-Albuterol 3 Ml Neb INHALATION 3 ml Q6H.RESP KIMI Administration Allopurinol 100 mg 12/21/24 09:00 12/22/24 16:40 Allopurinol 100 Mg Tablet PO 100 mg BID KIMI Administration Atorvastatin Calcium 20 mg 12/21/24 09:00 12/22/24 09:00 Atorvastatin 10 Mg Tablet PO 20 mg DAILY KIMI Administration Budesonide 0.5 mg 12/21/24 20:00 12/22/24 08:00 Budesonide 0.5 Mg/2 Ml Neb INHALATION 0.5 mg BID.RESPIRATORY KIMI Administration Cefepime HCl 2,000 mg 12/21/24 09:15 12/22/24 09:01 Cefepime 2,000 Mg Sdv IVP 2,000 mg Q24H KIMI Administration Protocol Duloxetine HCl 60 mg 12/21/24 09:00 12/22/24 09:01 Duloxetine 60 Mg Capsule PO 60 mg DAILY KIMI Administration Furosemide 40 mg 12/21/24 09:45 12/22/24 16:40 Furosemide 10 Mg/Ml Sdv 4ml IVP 40 mg Q8H KIMI Administration Gabapentin 300 mg 12/21/24 09:00 12/22/24 16:40 Gabapentin 300 Mg Capsule PO 300 mg TID KIMI Administration Heparin Sodium (Porcine) 5,000 unit 12/20/24 23:34 12/22/24 12:20 Heparin 5,000 Unit/Ml Inj 1 Ml SUBCUT 5,000 unit Q12H KIMI Administration Insulin Human Lispro 0 unit 12/21/24 08:00 12/22/24 16:41 Insulin Lispro 100 Unit/1 Ml SUBCUT 10 unit WM&BEDTIME KIMI Administration Protocol Pantoprazole Sodium 40 mg 12/21/24 09:00 12/22/24 09:[address] 40 Mg Tablet PO 40 mg DAILY KIMI Administration PFSH Acute 2 PFSH: Medical History Charcot foot due to diabetes mellitus Mass of right ankle Right ankle pain Coronary artery disease Chronic use of steroids Chronic anemia Dyslipidemia Atypical chest pain Seronegative rheumatoid arthritis of both hands Seronegative rheumatoid arthritis High risk medication use Immunization counseling Osteoarthritis Gout Surgical History Hx of total ankle replacement History of bilateral cataract extraction History of shoulder surgery History of hysterectomy History of arthroscopic knee surgery History of thumb surgery History of carpal tunnel surgery H/O total knee replacement History of laparoscopic cholecystectomy History of hip replacement Family History Sister CAD (coronary artery disease) Heart attack in her 50s and of the same. Mother Stroke Strong family history for CVA. Grandfather, mother, niece all had a CVA Other Asthma Diabetes Hypertension Denies family history of Lupus (systemic lupus erythematosus) Rheumatoid arthritis Social History Smoking and tobacco/nicotine status: never used tobacco/nicotine Alcohol intake: never Vitals/I&O/Wt Last Vital Signs Temp 97.5 F L 12/21/24 08:00 Pulse 82 12/22/24 13:36 Resp 18 12/22/24 13:36 BP 148/63 12/22/24 13:00 Pulse Ox 95 12/22/24 13:36 O2 Del Method Nasal Cannula 12/22/24 13:36 O2 Flow Rate 3 12/22/24 13:36 FiO2 35 12/22/24 03:00 12/22/24 12/22/24 12/22/24 06:59 14:59 22:59 Intake Total 480 / 480 Output Total 300 / 700 1850 / 1850 Balance -300 / -60 -1370 / -1370 Weight last 48 hrs Weight 234 lb 3 oz Weight 229 lb 4 oz Physical Exam 2 Const: COMMON NORMALS: no acute distress and patient oriented x3 GENERAL APPEARANCE: cooperative and anxious ORIENTATION/CONSCIOUSNESS: Yes awake, Yes oriented to person, Yes oriented to place and Yes oriented to time Chest: COMMONS NORMALS: normal inspection of the chest and normal palpation of entire chest wall CHEST: Yes Symmetrical chest wall rise Resp: COMMON NORMALS: No retractions EFFORT & INSPECTION: Yes symmetric chest movement, Yes labored and Yes uses accessory muscles AUSCULTATION: c rackles and diminished lung sounds bilateral in the lower lung bernabe Cardio: COMMON NORMALS: regular rate, regular rhythm, S1 normal heart sound present, S2 normal heart sound present, No gallops present (Cardio), No clicks present (Cardio), No murmurs present (Cardio) and No rub (Cardio) RATE: r egular rate RHYTHM: regular rhythm HEART SOUNDS: S1 normal heart sound present and S2 normal heart sound present PERIPHERAL PULSES: radial pulses present Extremity: GENERAL: Yes edema (2+pitting edema bilat LE) Neuro: COMMON NORMALS: patient oriented x3 and moves all extremities S ENSORIUM/ORIENTATION: Yes oriented to person, Yes oriented to place and Yes oriented to time Urinary Catheter Management: Lion: Cath Placed During This Visit: yes Reason for Continuing Indwelling Catheter: Accurate Measurement of Urinary Output in Critically Ill Patients Urinary Catheter Date of Insertion: 12/21/24 Urinary Catheter Time of Insertion: 09:58 Data 12/22/24 06:12 12/22/24 15:32 Micro: Microbiology 12/21/24 10:34 Gram Stain - Final Sputum - Expectorated Sputum Sputum Culture - Preliminary A&P Assessment and plan 1. NSTEMI (non-ST elevated myocardial infarction): 2. CHF exacerbation: 3. Coronary artery disease: 4. Dyslipidemia: 5. Benign essential hypertension with target blood pressure below 140/90: Plan: She has known mild to moderate coronary disease in multiple vessels. Given NSTEMI and significant volume overload with creatinine 3.9, evaluation would be limited to Lexiscan stress test on Wednesday if her volume status is improved and respiratory status is stable. Agree with fairly aggressive diuresis as her breathing is quite labored. Nephrology has consulted on the patient, she declines dialysis under any circumstance. Unless the creatinine improved significantly, no coronary angiogram would be possible even if stress test were abnormal. She will be followed by Dr. Carbajal over the weekend, decision regarding ischemic workup will be reevaluated. PDMP PDMP Reviewed: Not Reviewed Coding Level of Care Code Acute Code for [facility] Diagnoses NSTEMI (non-ST elevated myocardial infarction) I21.4 CHF exacerbation I50.9 Coronary artery disease I25.10 Dyslipidemia E78.5 Benign essential hypertension with target blood pressure below 140/90 I10
--- NOTE | 2024-12-22 13:36 | P.PN_ITS ---
Subjective 2 Subjective: events noted Medications: Reviewed: Yes Vitals/I&O/Wt Last Vital Signs Temp 97.5 F L 12/21/24 08:00 Pulse 84 12/22/24 13:00 Resp 27 H 12/22/24 13:00 BP 148/63 12/22/24 13:00 Pulse Ox 93 12/22/24 08:00 O2 Del Method Nasal Cannula 12/22/24 08:00 O2 Flow Rate 3 12/22/24 08:00 FiO2 35 12/22/24 03:00 12/21/24 12/22/24 12/22/24 22:59 06:59 14:59 Intake Total 480 / 480 Output Total 400 / 400 300 / 700 1850 / 1850 Balance -400 / 240 -300 / -60 -1370 / -1370 Weight last 48 hrs Weight 106.226 kg Weight 103.986 kg Weight 95.254 kg Physical Exam 2 Narrative: on 3 L O2 ,No distress PEERLA S1S2 RRR perr eport Lungs with decreased BS Abd , soft , non tender No edema Urinary Catheter Management: Lion: Cath Placed During This Visit: yes Reason for Continuing Indwelling Catheter: Accurate Measurement of Urinary Output in Critically Ill Patients Urinary Catheter Date of Insertion: 12/21/24 Urinary Catheter Time of Insertion: 09:58 Data 12/23/24 04:40 12/23/24 04:40 Micro: Microbiology 12/21/24 10:34 Gram Stain - Final Sputum - Expectorated Sputum A&P Assessment and plan 1. Acute kidney injury superimposed on CKD: Plan: 1. x Acute on chronic kidney disease stage IV: Patient's baseline is anywhere from 1.5-2.5. On presentation creatinine is 3.4,. No obstruction seen on CT. UA with 3+ protein. - Patient currently volume overloaded with anasarca and has mild metabolic acidosis - on IV lasix , will add IV albumin - Patient also have liver cirrhosis which is a new diagnosis - Given multiple comorbidities including CHF, new diagnosis of liver cirrhosis and advanced CKD, dialysis may not be well-tolerated. Also patient reported that she does not dialysis even indicated and would like conservative measures for now. - Avoid IV contrast studies, discussed with family at bedside - Also will check urine protein to creatinine ratio, follow-up SPEP UPEP, check HAYLEE and ANCA levels. 2. Diastolic CHF, repeat echo, last echo was in 2021. IV albumin and IV Lasix as above 3. Liver cirrhosis, new diagnosis needs workup 4. Metabolic acidosis, mild monitor 5. Hyponatremia, mild, likely hypovolemic 6. History of rheumatoid arthritis, on infliximab 7. Hyperkalemia , med mx Patient evaluated using audiovisual cart. Time spent 40 minutes PDMP PDMP Reviewed: Not Reviewed Attestations 2 Medical Necessity Statement*: per medicne Coding Level of Care Code Acute Code for [facility] F[facility] Diagnoses Acute kidney injury superimposed on CKD N17.9; N18.9
[2024-12-22 16:01] LABS: Blood Urea Nitrogen 79 mg/dL (8-23); Calcium 8.8 mg/dL (8.5-10.5); Carbon Dioxide 18 mmol/L (22-29); Chloride 89 mmol/L (98-107); Creatinine Clr Calc Pharmacy 13.9288; Glucose 233 mg/dL (65-115); Osmolality Calculated 291 mOsm/kg (285-295); Sodium 125 mmol/L (136-145)
[2024-12-22 16:08] LABS: Anion Gap 24.2 (5-19); Potassium 6.2 mmol/L (3.5-5.1)
--- NOTE | 2024-12-22 17:40 | P.PN_ITS ---
Subjective 2 Subjective: Patient was seen this morning, currently alert oriented x 3, following all commands, she continues to have episodes of shortness of breath shortness of breath with exertion, orthopnea, paroxysmal nocturnal dyspnea, denies any chest pain, no palpitations, has a cough, - Her urine output overnight was 2 L - Discussed her electrolyte abnormalitie s her creatinine 3.9, hyperkalemia, hyponatremia - Discussed the need for dialysis if her electrolytes do not correct and her urine output remains lackluster - However Adina does not want to undergo dialysis - She understands a mobility and mortali ty of her underlying condition, her acute kidney injury, with her CHF, with her pneumonia, with her sepsis but she does not want to undergo dialysis - She tells me that she is 79 and she do es not want to undergo it, I also discussed with her again her CODE STATUS, but she wants to remain a full code - Discussed that if her urine output barron s not improve my concern would be worsening respiratory status, and morbidity mortality associated with acute respiratory distress, and acute respiratory failure however she is adamant about not having dialysis -I also offered to have a meeting with h luz niece and nephew however she tells me that she is of sound mind and she can make decisions for herself and declined Vitals/I&O/Wt Last Vital Signs Temp 97.5 F L 12/21/24 08:00 Pulse 82 12/22/24 13:36 Resp 18 12/22/24 13:36 BP 148/63 12/22/24 13:00 Pulse Ox 95 12/22/24 13:36 O2 Del Method Nasal Cannula 12/22/24 13:36 O2 Flow Rate 3 12/22/24 13:36 FiO2 35 12/22/24 03:00 12/22/24 12/22/24 12/22/24 06:59 14:59 22:59 Intake Total 480 / 480 Output Total 300 / 700 1850 / 1850 Balance -300 / -60 -1370 / -1370 Weight last 48 hrs Weight 106.226 kg Weight 103.986 kg Physical Exam 2 Const: COMMON NORMALS: no acute distress and patient oriented x3 Lymph: LYMPHATIC: no lymphadenopathy noted Resp: OTHER: Tachypnea, wheezing and crackles in all lung bernabe, does become short of breath after a few words, no evidence of acute respiratory distress, no nasal flaring, no intercostal or suprasternal retractions Cardio: COMMON NORMALS: regular rate, regular rhythm, S1 normal heart sound present and S2 normal heart sound present RATE: regular rate RHYTHM: r egular rhythm HEART SOUNDS: S1 normal heart sound present and S2 normal heart sound present GI: COMMON NORMALS: Normal to inspection, nondistended, normoactive bowel sounds present and non-tender Extremity: OTHER: Has 2+ pitting edema Neuro: COMMON NORMALS: patient oriented x3 Psych: COMMON NORMALS: mental status grossly normal Skin: COMMON NORMALS: turgor normal GENERAL SKIN EXAM: turgor normal Urinary Catheter Management: Lion: Cath Placed During This Visit: yes Reason for Continuing Indwelling Catheter: Accurate Measurement of Urinary Output in Critically Ill Patients Urinary Catheter Date of Insertion: 12/21/24 Urinary Catheter Time of Insertion: 09:58 Quick SOFA Score: Respiratory Rate: 18 Blood Pressure: 148/63 Slime Coma Scale: 15 qSOFA Score: 0 If qSOFA score 2 or greater, continue: PaO2/FiO2 Ratio (mmHg): 233 Blood Pressure Mean: 91 Bilirubin (mg/dl): 0.4 Platelets (x10?/ml): 288 C reatinine (mg/dl): 3.9 SOFA Score: 5 Evaluation: Current stage of sepsis: sepsis Sepsis stage criteria used: [facility] Sep-1 and Sepsis-3 Crystalloid fluids: no fluids ordered Blood cultures ordered: Yes Possible source: pulmonary Focused Exam: Vital signs: Pulse Resp BP Pulse Ox O2 Del Method O2 Flow Rate 12/22/24 13:36 82 18 95 Nasal Cannula 3 12/22/24 13:00 84 27 H 148/63 12/22/24 12:30 95 22 H 148/63 12/22/24 12:00 87 24 H 144/69 12/22/24 11:30 90 17 144/69 12/22/24 11:00 92 30 H 131/90 12/22/24 10:30 91 21 H 12/22/24 10:00 89 24 H 12/22/24 09:30 95 25 H 12/22/24 09:00 86 25 H 146/92 12/22/24 08:30 93 19 H 146/92 12/22/24 08:00 98 31 H 143/85 93 12/22/24 08:00 97 20 H 96 Nasal Cannula 3 12/22/24 07:30 97 47 H 143/85 97 12/22/24 07:00 98 27 H 154/74 90 12/22/24 06:30 93 17 154/74 97 12/22/24 06:17 92 12/22/24 06:00 92 16 170/99 98 12/22/24 05:57 92 Cardiovascular exam: regular rate, regular rhythm, S1 normal heart sound and S2 normal heart sound Capillary refill: > 3 Seconds Peripheral pulse strength: 2+ Slightly Diminished Peripheral pulse location: Radial Skin exam: turgor normal Date exam was performed: 12/22/24 Time exam was performed: 09:00 2 Sepsis Screen No Definite Risk 12/21/24, 04:51 Respiratory Rate, (12 - 18) 18 breaths/min Today, 13:36 Blood Pressure 148/63 mmHg Today, 13:00 Slime Coma Scale Score 15 12/21/24, 08:00 Quick SOFA Score 0 12/21/24, 04:51 SOFA Score: 2 ABG PO2/FiO2 Ratio 233 Today, 03:37 Slime Coma Scale Score 15 12/21/24, 08:00 Blood Pressure Mean 91 mmHg Today, 13:00 Total Bilirubin, (0.15-1.2) 0.4 mg/dL Today, 06:12 Platelet Count, (157-399) 288 10^3/cmm Today, 06:12 Creatinine, (0.5-0.9) 3.9 mg/dL H Today, 15:32 Data 12/22/24 06:12 12/22/24 15:32 Micro: Microbiology 12/21/24 10:34 Gram Stain - Final Sputum - Expectorated Sputum Sputum Culture - Preliminary A&P Assessment and plan 1. Acute hypoxemic respiratory failure: 2. Anasarca: 3. Acute kidney injury superimposed on CKD: 4. High risk medication use: 5. Leukocytosis: 6. Seronegative rheumatoid arthritis: 7. CHF exacerbation: 8. Acute respiratory distress: 9. Pneumonia: 10. NSTEMI (non-ST elevated myocardial infarction): 11. Acute anemia: 12. Congestive heart failure: 13. Coronary artery disease: 14. Benign essential hypertension with target blood pressure below 140/90: 15. Increased anion gap metabolic acidosis: 16. Sepsis: Plan: Acute hypoxic hypercarbic respiratory failure - Multifactorial - From systolic CHF exacerbation - From multifocal pneumonia -Acute respiratory distress CT chest CT/[place] [id number] IMPRESSION: 1. Small bilateral pleural effusions with atelectatic changes in the lung bases. 2. Multiple prominent mediastinal lymph nodes measuring up to 10 mm in short axis. 3. There is an irregular pulmonary nodule in the right upper lobe measuring 16 x 14 mm (series 5, image 18) and a subsolid nodule in the left upper lobe measuring up to 18 x 17 mm (series 5, image 24). While this may represent multifocal multi lobar pneumonia true pulmonary nodules can not be excluded and in the absence of a known primary malignancy the Fleischner -Immunocompromise state -BNP over 20,000 this morning Plan -Moved to ICU - Continue BiPAP therapy as needed during the day, scheduled during the night - Lasix 40 IV 3 times daily, with metolazone - Monitor urine output, monitor creatinine - Vancomycin - Cefepime -DuoNeb - Blood cultures, sputum culture - Monitor respiratory status closely - Full code - Heparin for DVT prophylaxis Multifocal pneumonia, as above Sepsis - Secondary to pneumonia Systolic CHF exacerbation - Cardiac echo ordered IVC The inferior vena cava is dilated measuring 2.1 cm with no inspiratory collapse consistent with increased right atrial pressure. CONCLUSIONS 1. Left ventricular segmental wall motion abnormality in the basal inferior and inferolateral wall segments with overall normal ejection fraction of 54%. 2. Mild mitral valve regurgitation 3. Stage II left ventricular diastolic dysfunction 4. Mild concentric left ventricular hypertrophy 5. Mild pulmonary hypertension NSTEMI - No chest pain complaints - Aspirin, statin - History of cardiac cath 03/2020 Diagnostic Findings * No significant disease noted in the Left Main, LAD, Circumflex, or RCA coronary arteries. * Mid Circumflex Coronary Artery: has lesion. * Coronary angiography shows right dominance. * The left main is a medium caliber vessel with minimal intimal irregularities. * The left anterior descending artery is a relatively small to medium caliber vessel with diffuse disease, lesions ranging anywhere from 30 to 50%. The distal artery is a small caliber vessel which wrap around the LV apex minimally. The artery gives off multiple diagonal branches. The second diagonal branch was found to have 40 to 50% diffuse narrowing in the proximal segment. The other diagonal branches were found to have mild diffuse disease. * The circumflex artery is a medium to large caliber vessel which was found to have around 40% proximal segmental narrowing. The first obtuse marginal branch is a relatively small caliber vessel with 50 to 60% diffuse narrowing. Right after the second obtuse marginal branch, the artery appears to have around 50 to 60% tubular narrowing with some haziness. No other significant stenotic lesions were seen. * The right coronary artery is a medium caliber dominant vessel which also was found to have mild to moderate diffuse disease in the proximal and distal segment. The lesions were ranging anywhere from 30 to 50%. The PDA branch was found to have a proximal around 40% narrowing involving the ostium. No other significant stenotic lesions were noted. - Cardiac echo as above - Cardiology consulted Acute kidney injury -Creatinine 3.9 -Component of sepsis -Urine output 2 L -With hyperkalemia, hyponatremia, metabolic acidosis - Monitor urine output, monitor creatinine - Nephrology consulted - Patient declines dialysis Increased anion gap and metabolic acidosis - From acute renal failure, sepsis Liver cirrhosis? Type 2 diabetes mellitus, low-dose sliding scale Acute on chronic anemia, monitor DVT prophylaxis: Heparin 5000 subcutaneously every 12 hours Full code Continue IV antibiotics, IV diuresis, hyperkalemia treatment, spoke to nephrology, consulted cardiology PDMP PDMP Reviewed: Not Reviewed Attestations 2 Medical Necessity Statement*: Patient requires hospitalization for acute hypoxic respiratory failure secondary to pneumonia, sepsis, CHF, PUSHPA, acute anemia Diagnoses Acute hypoxemic respiratory failure J96.01 Anasarca R60.1 Acute kidney injury superimposed on CKD N17.9; N18.9 High risk medication use Z79.899 Leukocytosis D72.829 Seronegative rheumatoid arthritis M06.00 CHF exacerbation I50.9 Acute respiratory distress R06.03 Pneumonia J18.9 NSTEMI (non-ST elevated myocardial infarction) I21.4 Acute anemia D64.9 Congestive heart failure I50.9 Coronary artery disease I25.10 Benign essential hypertension with target blood pressure below 140/90 I10 Increased anion gap metabolic acidosis E87.29 Sepsis A41.9
[2024-12-22] MEDS: calcium gluconate 0.1 gm/mL 10% SDV 10mL 1 GM IVP (18:14)
[2024-12-22] MEDS: insulin regular-human 100 units/1 mL 10 UNIT IVP (18:14)
[2024-12-22 20:04] LABS: ALPHA 1 GLOBULIN 0.6 g/dL (0.2-0.3); ALPHA 2 GLOBULIN 1.2 g/dL (0.5-0.9); BETA 1 GLOBULIN 0.5 g/dL (0.4-0.6); BETA 2 GLOBULIN 0.5 g/dL (0.2-0.5)
--- NOTE | 2024-12-22 20:04 | PC.NURSE ---
Addendum entered by Honey Barnett RN 12/22/24 21:50: Dr. Calhoun called @2150 to update on urine output and potassium level. Also notified her of a locked order for albumin. New order to give 12.5g albumin ONCE now. Original Note: Dr. Calhoun communication: Dr. Calhoun face timed unit @2000 w/ nurse at patients bedside. New order to give 2 amps of sodium bicarb, 80 mg IVP Lasix, recheck Potassium at 9pm, and start 1500 Fluid Restriction.
[2024-12-22] MEDS: FUROsemide 10 mg/mL SDV 10mL 80 MG IVP (20:22)
[2024-12-22 21:25] LABS: Potassium 4.9 mmol/L (3.5-5.1)
[2024-12-22] MEDS: albumin 25 G/100 ML BAG 60 G IV (22:51)
[2024-12-22 23:18] LABS: Blood Urea Nitrogen 78 mg/dL (8-23); Calcium 9.0 mg/dL (8.5-10.5); Carbon Dioxide 20 mmol/L (22-29); Chloride 88 mmol/L (98-107); Creatinine Clr Calc Pharmacy 13.9288; Glucose 183 mg/dL (65-115); Osmolality Calculated 292 mOsm/kg (285-295); Sodium 127 mmol/L (136-145)
[2024-12-22 23:19] LABS: Anion Gap 23.9 (5-19); Potassium 4.9 mmol/L (3.5-5.1)
[2024-12-23] VITALS (47 sets, daily range): BP systolic 126–171; BP diastolic 65–111; PULSE 83–111; RESP 17–37; TEMP 36.6–37.1; O2SAT 87–96
[2024-12-23] MEDS: FUROsemide 10 mg/mL SDV 4mL 40 MG IVP ×2 (01:08→10:07)
[2024-12-23] MEDS: heparin 5,000 unit/mL INJ 1 mL 5000 UNIT SUBCUT ×3 (01:52→23:01)
[2024-12-23 05:29] LABS: Hematocrit 23.9 % (36-47); Hemoglobin 7.20 g/dL (11.27-16.99); Mean Corpuscular HGB Conc 30.1 g/dL (30-55); Mean Corpuscular Hemoglobin 27.6 pg (27-33); Mean Corpuscular Volume 91.6 fl (85-98); Nucleated Red Blood Cells % 0 %; Platelet Count 254 10^3/cmm (157-399); Red Blood Count 2.61 10^6/uL (3.85-5.65); White Blood Count 13.42 10^3/uL (3.29-11.43)
[2024-12-23 05:47] LABS: Lactate (Lactic Acid level) 0.8 mmol/L (0.5-2.2)
[2024-12-23 05:48] LABS: Albumin Level 3.4 g/dL (3.5-5.2); Alkaline Phosphatase 127 U/L (35-105); Calcium 8.8 mg/dL (8.5-10.5); Carbon Dioxide 21 mmol/L (22-29); Chloride 89 mmol/L (98-107); Creatinine Clr Calc Pharmacy 13.8899; Globulin 3.3 g/dL (1.3-4.6); Glucose 185 mg/dL (65-115); Magnesium 1.9 mg/dL (1.7-2.3); Osmolality Calculated 298 mOsm/kg (285-295); Sodium 129 mmol/L (136-145); Total Protein 6.7 g/dL (6.6-8.7)
[2024-12-23 05:51] LABS: Anion Gap 23.8 (5-19); Potassium 4.8 mmol/L (3.5-5.1)
[2024-12-23 05:52] LABS: Alanine Aminotransferase 6 U/L (0-33); Aspartate Amino Transferase 15 U/L (0-32)
[2024-12-23 05:54] LABS: Procalcitonin 1.29 ng/mL (0-0.5)
[2024-12-23 06:03] LABS: Blood Urea Nitrogen 84 mg/dL (8-23)
[2024-12-23 06:14] LABS: NT Pro B Type Natriuretic Pept 32449 pg/mL (0-450)
[2024-12-23] MEDS: ATORVASTATIN 10 MG TABLET 20 MG PO (10:06)
[2024-12-23] MEDS: vancomycin 500 MG in sodium chloride 0.9% (plus) 100 ML 200 MG IV (10:08)
[2024-12-23] MEDS: cefepime 2,000 mg SDV 2000 MG IVP (10:09)
[2024-12-23] MEDS: albumin 12.5 G/50 ML VIAL IV ×3 (10:09→23:01)
--- NOTE | 2024-12-23 12:00 | PM.PN ---
Subjective Subjective: Short of breath. No improvement in SOB since yesterday Vitals/I&O/Wt Last Vital Signs Temp 98.3 F 12/23/24 09:00 Pulse 100 12/23/24 11:00 Resp 25 H 12/23/24 11:00 BP 166/77 12/23/24 11:00 Pulse Ox 89 L 12/23/24 11:00 O2 Del Method Nasal Cannula 12/23/24 09:00 O2 Flow Rate 2 12/23/24 09:00 FiO2 30 12/23/24 05:00 12/22/24 12/23/24 12/23/24 22:59 06:59 14:59 Intake Total 490 / 970 340 / 1310 200 / 200 Output Total 1200 / 3050 1375 / 4425 900 / 900 Balance -710 / -2080 -1035 / -3115 -700 / -700 Weight last 48 hrs Weight 222 lb 3.2 oz Weight 234 lb 3 oz Physical Exam Const: OTHER: Sitting up in chair. Resp: OTHER: end expiratory wheezes Cardio: OTHER: regular rhythm. Tachycardic Extremity: OTHER: 1+ edema in legs bilaterally Psych: OTHER: alert and oriented x 3 Urinary Catheter Management: Lion: Cath Placed During This Visit: yes Reason for Continuing Indwelling Catheter: Accurate Measurement of Urinary Output in Critically Ill Patients Urinary Catheter Date of Insertion: 12/21/24 Urinary Catheter Time of Insertion: 09:58 Data 12/23/24 04:40 12/23/24 04:40 Micro: Microbiology 12/21/24 10:34 Gram Stain - Final Sputum - Expectorated Sputum Sputum Culture - Preliminary A&P Assessment and plan 1. Acute hypoxemic respiratory failure: secondary to PNA and CHF Still with significant SOB Continue current medical treatment 2. NSTEMI (non-ST elevated myocardial infarction): Possibly all Type 2 NSTEMI from PNA and CHF Asa 81mg daily Atorvastatin Will do Lexiscan once more stable 3. Acute anemia: I would like Hgb to be >8 with known CAD and past stenosis of 70% and current NSTEMI and CHF Please consider transfusion 4. Congestive heart failure: Acute exacerbation Diastolic CHF Continue lasix 40mg IV q8 No [id number] in setting of infection MRA contraindicated with this high of Cr 5. Coronary artery disease: start ASA 81mg daily Continue Atorvastatin PDMP PDMP Reviewed: Not Reviewed Attestations Medical Necessity Statement*: Patient will need to stay in the hospital for at least 2 more midnights. She is unstable from a respiratory standpoint and needs current ICU monitoring and treatment. Coding Level of Care Code Acute Code for [facility] Diagnoses Acute hypoxemic respiratory failure J96.01 NSTEMI (non-ST elevated myocardial infarction) I21.4 Acute anemia D64.9 Congestive heart failure I50.9 Coronary artery disease I25.10
--- NOTE | 2024-12-23 12:48 | XRR_ITS ---
PROCEDURE INFORMATION: Exam: XR Chest Exam date and time: 12/23/2024 1:15 PM Age: 79 years old Clinical indication: Shortness of breath; Additional info: SOB TECHNIQUE: Imaging protocol: Radiologic exam of the chest. Views: 1 view. COMPARISON: CR XR chest 1V portable [id number] 12/22/2024 7:20 AM FINDINGS: Tubes, catheters and devices: A right peripherally inserted central venous catheter lies with its tip in the superior vena cava. Lungs: There is some ill-defined patchy hypodensity in retrocardiac left lower lobe that slightly blurs the left hemidiaphragmatic silhouette. This is unchanged. 67 mm calcified granuloma is superimposed on the posterior right 7th rib, unchanged. Pleural spaces: Small right pleural effusion. Heart/Mediastinum: Borderline cardiomegaly is unchanged. Bones/joints: Unremarkable. XR/XR chest 1V portable [id number] IMPRESSION: 1. Left lower lobe atelectasis. 2. Satisfactory position of PICC line. 3. Small right pleural effusion.
--- NOTE | 2024-12-23 12:53 | P.PN_ITS ---
Subjective 2 Subjective: - Patient is seen this morning, she is c urrently on 4 L, she complains of persistent shortness of breath but better compared to yesterday she tells me her swelling is better no fevers, no chills - Discussed her low hemoglobin - Discussed will transfuse if it drops f urther, I would like to give her blood, but she has a high risk of fluid overload especially as she continues to complain shortness of breath - She is diuresed well overnight, will c ontinue IV diuresis - This afternoon, patient had complaints of shortness of breath placed back on BiPAP - Will switch her to a Lasix drip, BNP o alma 32,000 Vitals/I&O/Wt Last Vital Signs Temp 98.3 F 12/23/24 09:00 Pulse 100 12/23/24 11:00 Resp 25 H 12/23/24 11:00 BP 166/77 12/23/24 11:00 Pulse Ox 89 L 12/23/24 11:00 O2 Del Method Nasal Cannula 12/23/24 09:00 O2 Flow Rate 2 12/23/24 09:00 FiO2 30 12/23/24 05:00 12/22/24 12/23/24 12/23/24 22:59 06:59 14:59 Intake Total 490 / 970 340 / 1310 200 / 200 Output Total 1200 / 3050 1375 / 4425 900 / 900 Balance -710 / -2080 -1035 / -3115 -700 / -700 Weight last 48 hrs Weight 100.788 kg Weight 106.226 kg Physical Exam 2 Const: COMMON NORMALS: no acute distress and patient oriented x3 Resp: COMMON NORMALS: normal respiratory effort, No retractions and No use of accessory muscles AUSCULTATION: crackles and wheezes Cardio: COMMON NORMALS: regular rate, regular rhythm, S1 normal heart sound present and S2 normal heart sound present RATE: regular rate RHYTHM: r egular rhythm HEART SOUNDS: S1 normal heart sound present and S2 normal heart sound present GI: COMMON NORMALS: Normal to inspection, nondistended, normoactive bowel sounds present and non-tender Neuro: COMMON NORMALS: patient oriented x3 Psych: COMMON NORMALS: mental status grossly normal Urinary Catheter Management: Lion: Cath Placed During This Visit: yes Reason for Continuing Indwelling Catheter: Accurate Measurement of Urinary Output in Critically Ill Patients Urinary Catheter Date of Insertion: 12/21/24 Urinary Catheter Time of Insertion: 09:58 Data 12/23/24 04:40 12/23/24 04:40 Micro: Microbiology 12/21/24 10:34 Gram Stain - Final Sputum - Expectorated Sputum Sputum Culture - Preliminary A&P Assessment and plan 1. Acute hypoxemic respiratory failure: 2. Anasarca: 3. Acute kidney injury superimposed on CKD: 4. High risk medication use: 5. Leukocytosis: 6. Seronegative rheumatoid arthritis: 7. CHF exacerbation: 8. Acute respiratory distress: 9. Pneumonia: 10. NSTEMI (non-ST elevated myocardial infarction): 11. Acute anemia: 12. Congestive heart failure: 13. Coronary artery disease: 14. Benign essential hypertension with target blood pressure below 140/90: 15. Increased anion gap metabolic acidosis: 16. Sepsis: Plan: Acute hypoxic hypercarbic respiratory failure - Multifactorial - From systolic CHF exacerbation - From multifocal pneumonia -Acute respiratory distress CT chest CT/[place] [id number] IMPRESSION: 1. Small bilateral pleural effusions with atelectatic changes in the lung bases. 2. Multiple prominent mediastinal lymph nodes measuring up to 10 mm in short axis. 3. There is an irregular pulmonary nodule in the right upper lobe measuring 16 x 14 mm (series 5, image 18) and a subsolid nodule in the left upper lobe measuring up to 18 x 17 mm (series 5, image 24). While this may represent multifocal multi lobar pneumonia true pulmonary nodules can not be excluded and in the absence of a known primary malignancy the Fleischner -Immunocompromise state -BNP over 20,000 this morning Plan -Moved to ICU - Continue BiPAP therapy as needed during the day, scheduled during the night - Switch to Lasix drip -Monitor BMP every 4hours - Monitor urine output, monitor creatinine - Vancomycin - Cefepime -DuoNeb - Blood cultures, sputum culture - Monitor respiratory status closely - Full code - Heparin for DVT prophylaxis Multifocal pneumonia, as above Sepsis - Secondary to pneumonia Systolic CHF exacerbation - Cardiac echo ordered IVC The inferior vena cava is dilated measuring 2.1 cm with no inspiratory collapse consistent with increased right atrial pressure. CONCLUSIONS 1. Left ventricular segmental wall motion abnormality in the basal inferior and inferolateral wall segments with overall normal ejection fraction of 54%. 2. Mild mitral valve regurgitation 3. Stage II left ventricular diastolic dysfunction 4. Mild concentric left ventricular hypertrophy 5. Mild pulmonary hypertension NSTEMI - No chest pain complaints - Aspirin, statin - History of cardiac cath 03/2020 Diagnostic Findings * No significant disease noted in the Left Main, LAD, Circumflex, or RCA coronary arteries. * Mid Circumflex Coronary Artery: has lesion. * Coronary angiography shows right dominance. * The left main is a medium caliber vessel with minimal intimal irregularities. * The left anterior descending artery is a relatively small to medium caliber vessel with diffuse disease, lesions ranging anywhere from 30 to 50%. The distal artery is a small caliber vessel which wrap around the LV apex minimally. The artery gives off multiple diagonal branches. The second diagonal branch was found to have 40 to 50% diffuse narrowing in the proximal segment. The other diagonal branches were found to have mild diffuse disease. * The circumflex artery is a medium to large caliber vessel which was found to have around 40% proximal segmental narrowing. The first obtuse marginal branch is a relatively small caliber vessel with 50 to 60% diffuse narrowing. Right after the second obtuse marginal branch, the artery appears to have around 50 to 60% tubular narrowing with some haziness. No other significant stenotic lesions were seen. * The right coronary artery is a medium caliber dominant vessel which also was found to have mild to moderate diffuse disease in the proximal and distal segment. The lesions were ranging anywhere from 30 to 50%. The PDA branch was found to have a proximal around 40% narrowing involving the ostium. No other significant stenotic lesions were noted. - Cardiac echo as above - Cardiology consulted Acute kidney injury -Creatinine 3.9 -Component of sepsis -Urine output 2 L -With hyperkalemia, hyponatremia, metabolic acidosis - Monitor urine output, monitor creatinine - Nephrology consulted - Patient declines dialysis Increased anion gap and metabolic acidosis - From acute renal failure, sepsis Liver cirrhosis? Type 2 diabetes mellitus, low-dose sliding scale Acute on chronic anemia, monitor - Hemoglobin 7.2 - Will consider blood transfusion once patient's respiratory status has improved DVT prophylaxis: Heparin 5000 subcutaneously every 12 hours Full code Continue p.o. antibiotics, switch to Lasix drip, will consider blood transfusion PDMP PDMP Reviewed: Not Reviewed Attestations 2 Medical Necessity Statement*: Patient requires hospitalization for acute hypoxic respiratory failure, pneumonia, sepsis, CHF Diagnoses Acute hypoxemic respiratory failure J96.01 Anasarca R60.1 Acute kidney injury superimposed on CKD N17.9; N18.9 High risk medication use Z79.899 Leukocytosis D72.829 Seronegative rheumatoid arthritis M06.00 CHF exacerbation I50.9 Acute respiratory distress R06.03 Pneumonia J18.9 NSTEMI (non-ST elevated myocardial infarction) I21.4 Acute anemia D64.9 Congestive heart failure I50.9 Coronary artery disease I25.10 Benign essential hypertension with target blood pressure below 140/90 I10 Increased anion gap metabolic acidosis E87.29 Sepsis A41.9
--- NOTE | 2024-12-23 12:59 | PC.NURSE ---
Work of breathing: Patient work of brathing has increased over the last half hour. Nurse assisted patient with repositioning and sitting up straighter in bed, but htis did not help. Patient started to desaturate due to the exertion. O2 dropped to 82%. Patient reports difficulty breathing. Auscultation of lung sounds reveal bilateral lower lobe crackles. Lasix given at 10am has only helpe dpatient produce 200mL over the last 3 hours. Nurse placed patient back on bipap ALerted Dr hernandes, no new orders received, continue to monitor, he will consider lasix drip if no substantial increase in urine.
[2024-12-23 13:16] LABS: Hematocrit 26.4 % (36-47); Hemoglobin 7.80 g/dL (11.27-16.99); Mean Corpuscular HGB Conc 29.5 g/dL (30-55); Mean Corpuscular Hemoglobin 26.8 pg (27-33); Mean Corpuscular Volume 90.7 fl (85-98); Nucleated Red Blood Cells % 0 %; Platelet Count 306 10^3/cmm (157-399); Red Blood Count 2.91 10^6/uL (3.85-5.65); White Blood Count 15.47 10^3/uL (3.29-11.43)
[2024-12-23 13:37] LABS: Anion Gap 26.5 (5-19); Calcium 9.0 mg/dL (8.5-10.5); Carbon Dioxide 19 mmol/L (22-29); Chloride 88 mmol/L (98-107); Glucose 255 mg/dL (65-115); Osmolality Calculated 302 mOsm/kg (285-295); Potassium 4.5 mmol/L (3.5-5.1); Sodium 129 mmol/L (136-145)
[2024-12-23 14:03] LABS: Creatinine Clr Calc Pharmacy 13.5337
[2024-12-23 14:04] LABS: Blood Urea Nitrogen 84 mg/dL (8-23)
[2024-12-23] MEDS: FUROsemide 200 MG in sodium chloride 0.9% (100 ml) 80 ML IV (14:25)
--- NOTE | 2024-12-23 18:07 | PC.NURSE ---
SHift SUmmary: up to a chair for most of the day. Work of breathing increase and crackles in lungs prompted bipap to be place don mid day and a fixed rate lasix drip. Off of bipap for dinner and has done well without it for the past 2 hours of day shift. total urine output: 1600mL
[2024-12-23 18:53] LABS: Anion Gap 25.3 (5-19); Calcium 8.8 mg/dL (8.5-10.5); Carbon Dioxide 20 mmol/L (22-29); Chloride 87 mmol/L (98-107); Creatinine Clr Calc Pharmacy 13.5337; Glucose 274 mg/dL (65-115); Osmolality Calculated 301 mOsm/kg (285-295); Potassium 4.3 mmol/L (3.5-5.1); Sodium 128 mmol/L (136-145)
[2024-12-23 19:01] LABS: Blood Urea Nitrogen 84 mg/dL (8-23)
--- NOTE | 2024-12-23 19:53 | P.PN_ITS ---
Subjective 2 Subjective: sitting in chair Medications: Reviewed: Yes Vitals/I&O/Wt Last Vital Signs Temp 98.7 F 12/23/24 19:35 Pulse 93 12/23/24 18:00 Resp 25 H 12/23/24 18:00 BP 130/78 12/23/24 18:00 Pulse Ox 92 12/23/24 18:00 O2 Del Method BiPAP 12/23/24 19:35 O2 Flow Rate 3 12/23/24 18:00 FiO2 30 12/23/24 16:10 12/23/24 12/23/24 12/23/24 06:59 14:59 22:59 Intake Total 340 / 1310 500 / 500 1050 / 1550 Output Total 1375 / 4425 900 / 900 750 / 1650 Balance -1035 / -3115 -400 / -400 300 / -100 Weight last 48 hrs Weight 100.788 kg Weight 106.226 kg Physical Exam 2 Narrative: on 3 L O2 ,No distress PEERLA S1S2 RRR perr eport Lungs with decreased BS Abd , soft , non tender No edema Urinary Catheter Management: Lion: Cath Placed During This Visit: yes Reason for Continuing Indwelling Catheter: Accurate Measurement of Urinary Output in Critically Ill Patients Urinary Catheter Date of Insertion: 12/21/24 Urinary Catheter Time of Insertion: 09:58 Data 12/23/24 12:58 12/23/24 18:27 Micro: Microbiology 12/21/24 10:34 Gram Stain - Final Sputum - Expectorated Sputum Sputum Culture - Final A&P Assessment and plan 1. Acute kidney injury superimposed on CKD: Plan: 1. x Acute on chronic kidney disease stage IV: Patient's baseline is anywhere from 1.5-2.5. On presentation creatinine is 3.4,. No obstruction seen on CT. UA with 3+ protein. - Patient currently volume overloaded with anasarca and has mild metabolic acidosis - on IV lasix , and IV albumin - Patient also have liver cirrhosis which is a new diagnosis - Given multiple comorbidities including CHF, new diagnosis of liver cirrhosis and advanced CKD, dialysis may not be well-tolerated. Also patient reported that she does not want dialysis even indicated and would like conservative measures for now. - Avoid IV contrast studies, discussed with family at bedside - Also will check urine protein to creatinine ratio, follow-up SPEP UPEP, check HAYLEE and ANCA levels. 2. Diastolic CHF, repeat echo, last echo was in 2021. IV albumin and IV Lasix as above 3. Liver cirrhosis, new diagnosis needs workup 4. Metabolic acidosis, mild monitor 5. Hyponatremia, mild, likely hypervolemic 6. History of rheumatoid arthritis, on infliximab 7. Hyperkalemia , med mx Patient evaluated using audiovisual cart. Time spent 40 minutes PDMP PDMP Reviewed: Not Reviewed Attestations 2 Medical Necessity Statement*: per juanita Coding Level of Care Code Acute Code for [facility] Diagnoses Acute kidney injury superimposed on CKD N17.9; N18.9
[2024-12-23 22:17] LABS: Anion Gap 24.1 (5-19); Calcium 9.1 mg/dL (8.5-10.5); Carbon Dioxide 21 mmol/L (22-29); Chloride 86 mmol/L (98-107); Creatinine Clr Calc Pharmacy 13.8899; Glucose 237 mg/dL (65-115); Osmolality Calculated 296 mOsm/kg (285-295); Potassium 4.1 mmol/L (3.5-5.1); Sodium 127 mmol/L (136-145)
[2024-12-23 22:27] LABS: Blood Urea Nitrogen 82 mg/dL (8-23)
[2024-12-24] VITALS (65 sets, daily range): BP systolic 109–168; BP diastolic 69–110; PULSE 89–105; RESP 12–52; TEMP 36.2–37.2; O2SAT 88–97
[2024-12-24 02:10] LABS: Hematocrit 21.4 % (36-47); Hemoglobin 6.80 g/dL (11.27-16.99); Mean Corpuscular HGB Conc 31.8 g/dL (30-55); Mean Corpuscular Hemoglobin 27.9 pg (27-33); Mean Corpuscular Volume 87.7 fl (85-98); Nucleated Red Blood Cells % 0 %; Platelet Count 263 10^3/cmm (157-399); Red Blood Count 2.44 10^6/uL (3.85-5.65); White Blood Count 15.65 10^3/uL (3.29-11.43)
[2024-12-24 02:36] LABS: Procalcitonin 1.46 ng/mL (0-0.5)
[2024-12-24 02:48] LABS: Alanine Aminotransferase < 5 U/L (0-33); Albumin Level 4.0 g/dL (3.5-5.2); Alkaline Phosphatase 110 U/L (35-105); Anion Gap 24.8 (5-19); Aspartate Amino Transferase 10 U/L (0-32); Blood Urea Nitrogen 79 mg/dL (8-23); Calcium 9.2 mg/dL (8.5-10.5); Carbon Dioxide 21 mmol/L (22-29); Chloride 85 mmol/L (98-107); Creatinine Clr Calc Pharmacy 13.8899; Globulin 3.8 g/dL (1.3-4.6); Glucose 185 mg/dL (65-115); Magnesium 1.8 mg/dL (1.7-2.3); Osmolality Calculated 292 mOsm/kg (285-295); Potassium 3.8 mmol/L (3.5-5.1); Sodium 127 mmol/L (136-145); Total Protein 7.8 g/dL (6.6-8.7)
[2024-12-24 03:11] LABS: NT Pro B Type Natriuretic Pept > 70000 pg/mL (0-450)
--- NOTE | 2024-12-24 03:42 | PC.NURSE ---
RN notified Dr. moreira about patient hgl drop. hgl now 6.8. 1 unit PRBC ordered
[2024-12-24 06:11] LABS: Lactate (Lactic Acid level) 0.7 mmol/L (0.5-2.2)
[2024-12-24 06:25] LABS: Anion Gap 23.6 (5-19); Calcium 9.1 mg/dL (8.5-10.5); Carbon Dioxide 22 mmol/L (22-29); Chloride 86 mmol/L (98-107); Glucose 178 mg/dL (65-115); Osmolality Calculated 295 mOsm/kg (285-295); Potassium 3.6 mmol/L (3.5-5.1); Sodium 128 mmol/L (136-145)
[2024-12-24 06:36] LABS: Blood Urea Nitrogen 81 mg/dL (8-23); Creatinine Clr Calc Pharmacy 13.7671
[2024-12-24] MEDS: FUROsemide 200 MG in sodium chloride 0.9% (100 ml) 80 ML IV (07:45)
[2024-12-24] MEDS: methylPREDNISolone sod succ 40 mg/mL INJ IVP ×2 (08:39→15:52)
[2024-12-24] MEDS: ATORVASTATIN 10 MG TABLET 20 MG PO (08:39)
--- NOTE | 2024-12-24 10:32 | P.PN_ITS ---
Subjective 2 Subjective: Patient was seen this morning, she is short of breath this morning, but she tells me she feels a bit better, she does have some tachypnea, nasal flaring, intercostal retractions, mild respiratory distress, but she tells me that she slept in the night, she was placed on a Lasix drip yesterday, she feels better with the Lasix drip, discussed her hemoglobin is 6.8, will transfuse her 1 unit of blood, there is a risk of fluid overload, increased her Lasix drip to 20 mg/h with a dose of metolazone, she still declines dialysis, understands the morbidity of mortality associated, she voices understanding, all questions answered but declined to for now, she remains a full code Vitals/I&O/Wt Last Vital Signs Temp 97.1 F L 12/24/24 07:05 Pulse 97 12/24/24 08:11 Resp 24 H 12/24/24 07:55 BP 151/80 12/24/24 07:05 Pulse Ox 95 12/24/24 07:57 O2 Del Method BiPAP 12/24/24 07:55 O2 Flow Rate 3 12/23/24 18:00 FiO2 30 12/24/24 07:57 12/23/24 12/24/24 12/24/24 22:59 06:59 14:59 Intake Total 1050 / 1550 300 / 1850 340.750 / 340.750 Output Total 800 / 1700 850 / 2550 Balance 250 / -150 -550 / -700 340.750 / 340.750 Weight last 48 hrs Weight 104 kg Weight 100.788 kg Physical Exam 2 Const: COMMON NORMALS: no acute distress and patient oriented x3 Resp: AUSCULTATION: crackles and wheezes OTHER: Tachypnea, wheezing crackles all lung bernabe, intercostal retractions, suprasternal retractions, nasal flaring Cardio: COMMON NORMALS: regular rate, regular rhythm, S1 normal heart sound present and S2 normal heart sound present RATE: regular rate RHYTHM: r egular rhythm HEART SOUNDS: S1 normal heart sound present and S2 normal heart sound present GI: COMMON NORMALS: Normal to inspection, nondistended, normoactive bowel sounds present and non-tender Extremity: COMMON NORMALS: no pedal edema NARRATIVE EXTREMITY EXAM: 2+ pitting edema Neuro: COMMON NORMALS: patient oriented x3, CN's II-XII intact bilaterally and moves all extremities Psych: COMMON NORMALS: mental status grossly normal Urinary Catheter Management: Lion: Cath Placed During This Visit: yes Reason for Continuing Indwelling Catheter: Accurate Measurement of Urinary Output in Critically Ill Patients Urinary Catheter Date of Insertion: 12/21/24 Urinary Catheter Time of Insertion: 09:58 Data 12/24/24 01:45 12/24/24 06:02 Micro: Microbiology 12/21/24 10:34 Gram Stain - Final Sputum - Expectorated Sputum Sputum Culture - Final A&P Assessment and plan 1. Acute hypoxemic respiratory failure: 2. Anasarca: 3. Acute kidney injury superimposed on CKD: 4. High risk medication use: 5. Leukocytosis: 6. Seronegative rheumatoid arthritis: 7. CHF exacerbation: 8. Acute respiratory distress: 9. Pneumonia: 10. NSTEMI (non-ST elevated myocardial infarction): 11. Acute anemia: 12. Congestive heart failure: 13. Coronary artery disease: 14. Benign essential hypertension with target blood pressure below 140/90: 15. Increased anion gap metabolic acidosis: 16. Sepsis: Plan: Acute hypoxic hypercarbic respiratory failure - Multifactorial - From systolic CHF exacerbation - From multifocal pneumonia -Acute respiratory distress CT chest CT/[place] [id number] IMPRESSION: 1. Small bilateral pleural effusions with atelectatic changes in the lung bases. 2. Multiple prominent mediastinal lymph nodes measuring up to 10 mm in short axis. 3. There is an irregular pulmonary nodule in the right upper lobe measuring 16 x 14 mm (series 5, image 18) and a subsolid nodule in the left upper lobe measuring up to 18 x 17 mm (series 5, image 24). While this may represent multifocal multi lobar pneumonia true pulmonary nodules can not be excluded and in the absence of a known primary malignancy the Fleischner -Immunocompromise state -BNP over 20,000 this morning Plan -Moved to ICU - Continue BiPAP therapy as needed during the day, scheduled during the night - Switch to Lasix drip, currently at 20 mg/hr, 1 dose metolazone -Monitor BMP every 4hours - Monitor urine output, monitor creatinine - Vancomycin - Cefepime broaden to meropenem -DuoNeb - Blood cultures, sputum culture - Monitor respiratory status closely - Full code - Heparin for DVT prophylaxis Multifocal pneumonia, as above Sepsis - Secondary to pneumonia Systolic CHF exacerbation - Cardiac echo ordered IVC The inferior vena cava is dilated measuring 2.1 cm with no inspiratory collapse consistent with increased right atrial pressure. CONCLUSIONS 1. Left ventricular segmental wall motion abnormality in the basal inferior and inferolateral wall segments with overall normal ejection fraction of 54%. 2. Mild mitral valve regurgitation 3. Stage II left ventricular diastolic dysfunction 4. Mild concentric left ventricular hypertrophy 5. Mild pulmonary hypertension NSTEMI - No chest pain complaints - Aspirin, statin - History of cardiac cath 03/2020 Diagnostic Findings * No significant disease noted in the Left Main, LAD, Circumflex, or RCA coronary arteries. * Mid Circumflex Coronary Artery: has lesion. * Coronary angiography shows right dominance. * The left main is a medium caliber vessel with minimal intimal irregularities. * The left anterior descending artery is a relatively small to medium caliber vessel with diffuse disease, lesions ranging anywhere from 30 to 50%. The distal artery is a small caliber vessel which wrap around the LV apex minimally. The artery gives off multiple diagonal branches. The second diagonal branch was found to have 40 to 50% diffuse narrowing in the proximal segment. The other diagonal branches were found to have mild diffuse disease. * The circumflex artery is a medium to large caliber vessel which was found to have around 40% proximal segmental narrowing. The first obtuse marginal branch is a relatively small caliber vessel with 50 to 60% diffuse narrowing. Right after the second obtuse marginal branch, the artery appears to have around 50 to 60% tubular narrowing with some haziness. No other significant stenotic lesions were seen. * The right coronary artery is a medium caliber dominant vessel which also was found to have mild to moderate diffuse disease in the proximal and distal segment. The lesions were ranging anywhere from 30 to 50%. The PDA branch was found to have a proximal around 40% narrowing involving the ostium. No other significant stenotic lesions were noted. - Cardiac echo as above - Cardiology consulted Acute kidney injury -Creatinine 3.9 -Component of sepsis -Urine output 3 L -With hyperkalemia, hyponatremia, metabolic acidosis - Monitor urine output, monitor creatinine - Nephrology consulted - Patient declines dialysis Increased anion gap and metabolic acidosis - From acute renal failure, sepsis Liver cirrhosis? Etiology unclear Type 2 diabetes mellitus, low-dose sliding scale Acute on chronic anemia, monitor - Hemoglobin 6.8, will transfuse 1 unit PRBC DVT prophylaxis: Heparin 5000 subcutaneously every 12 hours, on hold due to anemia, SCDs Full code Continue IV antibiotics, Lasix drip, transfuse 1 unit. BC PDMP PDMP Reviewed: Not Reviewed Attestations 2 Medical Necessity Statement*: Patient requires hospitalization for acute anemia, CHF, respiratory failure, PUSHPA, NSTEMI Diagnoses Acute hypoxemic respiratory failure J96.01 Anasarca R60.1 Acute kidney injury superimposed on CKD N17.9; N18.9 High risk medication use Z79.899 Leukocytosis D72.829 Seronegative rheumatoid arthritis M06.00 CHF exacerbation I50.9 Acute respiratory distress R06.03 Pneumonia J18.9 NSTEMI (non-ST elevated myocardial infarction) I21.4 Acute anemia D64.9 Congestive heart failure I50.9 Coronary artery disease I25.10 Benign essential hypertension with target blood pressure below 140/90 I10 Increased anion gap metabolic acidosis E87.29 Sepsis A41.9
--- NOTE | 2024-12-24 11:01 | P.PN_ITS ---
Subjective 2 Subjective: on lasix drip Medications: Reviewed: Yes Vitals/I&O/Wt Last Vital Signs Temp 97.1 F L 12/24/24 07:05 Pulse 92 12/24/24 10:44 Resp 24 H 12/24/24 07:55 BP 151/80 12/24/24 07:05 Pulse Ox 92 12/24/24 10:44 O2 Del Method BiPAP 12/24/24 07:55 O2 Flow Rate 3 12/23/24 18:00 FiO2 30 12/24/24 10:44 12/23/24 12/24/24 12/24/24 22:59 06:59 14:59 Intake Total 1050 / 1550 300 / 1850 340.750 / 340.750 Output Total 800 / 1700 850 / 2550 Balance 250 / -150 -550 / -700 340.750 / 340.750 Weight last 48 hrs Weight 104 kg Weight 100.788 kg Physical Exam 2 Narrative: on 3 L O2 ,No distress PEERLA S1S2 RRR perr eport Lungs with decreased BS Abd , soft , non tender No edema Urinary Catheter Management: Lion: Cath Placed During This Visit: yes Reason for Continuing Indwelling Catheter: Accurate Measurement of Urinary Output in Critically Ill Patients Urinary Catheter Date of Insertion: 12/21/24 Urinary Catheter Time of Insertion: 09:58 Data 12/24/24 01:45 12/24/24 06:02 Micro: Microbiology 12/21/24 10:34 Gram Stain - Final Sputum - Expectorated Sputum Sputum Culture - Final A&P Assessment and plan 1. Acute kidney injury superimposed on CKD: Plan: 1. Acute on chronic kidney disease stage IV: Patient's baseline is anywhere from 1.5-2.5. On presentation creatinine is 3.4,. No obstruction seen on CT. UA with 3+ protein. - Patient currently volume overloaded with anasarca and has mild metabolic acidosis - on IV lasix drip , s/p IV albumin - Patient also have liver cirrhosis - Given multiple comorbidities including CHF, new diagnosis of liver cirrhosis and advanced CKD, dialysis may not be well-tolerated. Also patient reported that she does not want dialysis even indicated and would like conservative measures for now. - Avoid IV contrast studies, discussed with family at bedside - Also will check urine protein to creatinine ratio, follow-up SPEP UPEP, check HAYLEE and ANCA levels. 2. Diastolic CHF, repeat echo, last echo was in 2021. IV Lasix as above 3. Liver cirrhosis, new diagnosis needs workup 4. Metabolic acidosis, mild monitor 5. Hyponatremia, mild, likely hypervolemic 6. History of rheumatoid arthritis, on infliximab 7. Hyperkalemia , med mx Patient evaluated using audiovisual cart. Time spent 40 minutes PDMP PDMP Reviewed: Not Reviewed Attestations 2 Medical Necessity Statement*: per medicne Coding Level of Care Code Acute Code for Chg Fwd Diagnoses Acute kidney injury superimposed on CKD N17.9; N18.9
[2024-12-24 11:34] LABS: Anion Gap 25.9 (5-19); Blood Urea Nitrogen 80 mg/dL (8-23); Calcium 9.1 mg/dL (8.5-10.5); Carbon Dioxide 20 mmol/L (22-29); Chloride 85 mmol/L (98-107); Creatinine Clr Calc Pharmacy 13.4229; Glucose 251 mg/dL (65-115); Osmolality Calculated 297 mOsm/kg (285-295); Potassium 3.9 mmol/L (3.5-5.1); Sodium 127 mmol/L (136-145)
--- NOTE | 2024-12-24 12:54 | P.PN_ITS ---
Subjective 2 Subjective: Started on IV Lasix gtt. Still with SOB Vitals/I&O/Wt Last Vital Signs Temp 98.4 F 12/24/24 09:00 Pulse 89 12/24/24 11:00 Resp 20 H 12/24/24 11:00 BP 168/86 12/24/24 11:00 Pulse Ox 92 12/24/24 10:44 O2 Del Method BiPAP 12/24/24 10:30 O2 Flow Rate 3 12/24/24 09:00 FiO2 30 12/24/24 10:44 12/23/24 12/24/24 12/24/24 22:59 06:59 14:59 Intake Total 1050 / 1550 300 / 1850 340.750 / 340.750 Output Total 800 / 1700 850 / 2550 Balance 250 / -150 -550 / -700 340.750 / 340.750 Weight last 48 hrs Weight 229 lb 4.492 oz Weight 222 lb 3.2 oz Physical Exam 2 Const: GENERAL APPEARANCE: cooperative and ill appearing Resp: COMMON NORMALS: clear to auscultation bilaterally EFFORT & INSPECTION: Yes tachypneic AUSCULTATION: clear to auscultation bilaterally GI: INSPECTION: Yes abdominal distension Extremity: GENERAL: Yes other findings (Trace edema in both legs) Urinary Catheter Management: Lion: Cath Placed During This Visit: yes Reason for Continuing Indwelling Catheter: Accurate Measurement of Urinary Output in Critically Ill Patients Urinary Catheter Date of Insertion: 12/21/24 Urinary Catheter Time of Insertion: 09:58 Data 12/24/24 01:45 12/24/24 11:08 Micro: Microbiology 12/21/24 10:34 Gram Stain - Final Sputum - Expectorated Sputum Sputum Culture - Final A&P Assessment and plan 1. Acute hypoxemic respiratory failure: Secondary to PNA, CHF, volume overload possibly related to cirrhosis as well Still with significant SOB Abdomen more distended today PNA and cirrhosis tx per primary team Bipap Lasix gtt per renal Consider US abd to r/o development of ascites if no improvement with Lasix gtt 2. NSTEMI (non-ST elevated myocardial infarction): Possibly all Type 2 NSTEMI from PNA and CHF Asa 81mg daily Atorvastatin Will do Lexiscan once more stable 3. Acute anemia: Acute on chronic anemia Hgb now less than 7 No signs of acute bleeding Transfuse 1u pRBCs 4. Congestive heart failure: Diastolic CHF No [id number] in setting of infection MRA contraindicated with this high of Cr Continue lasix gtt per Renal 5. Coronary artery disease: Moderate CAD on cath 2019 Denies CP Continue ASA 81mg daily Continue Atorvastatin PDMP PDMP Reviewed: Not Reviewed Attestations 2 Medical Necessity Statement*: Continued hospitalization for greater than than 2 midnights required for acute hypoxic respiratory failure Coding Level of Care Code 38415 Diagnoses Acute hypoxemic respiratory failure J96.01 NSTEMI (non-ST elevated myocardial infarction) I21.4 Acute anemia D64.9 Congestive heart failure I50.9 Coronary artery disease I25.10
[2024-12-24 14:08] LABS: Anion Gap 26.2 (5-19); Calcium 9.1 mg/dL (8.5-10.5); Carbon Dioxide 20 mmol/L (22-29); Chloride 83 mmol/L (98-107); Glucose 292 mg/dL (65-115); Osmolality Calculated 296 mOsm/kg (285-295); Potassium 4.2 mmol/L (3.5-5.1); Sodium 125 mmol/L (136-145)
[2024-12-24 14:12] LABS: Creatinine Clr Calc Pharmacy 13.7671
[2024-12-24 14:15] LABS: Blood Urea Nitrogen 82 mg/dL (8-23)
[2024-12-24] MEDS: polyethylene glycol 3350 Pkt 17 gm PO (17:29)
[2024-12-24] MEDS: FUROsemide 200 MG in sodium chloride 0.9% (100 ml) 80 ML 10 MG IV (18:10)
--- NOTE | 2024-12-24 18:24 | PC.NURSE ---
Addendum entered by Jer Aviles RN 12/24/24 19:11: Communication with Dr hernandes near end of shift. Reduced lasix drip from 20mg/hr to 10mg/hr. One time dose of 5mg metolazone, Fluid restriction changed form 2000ml/24 hrs to 1000mL/24 hrs. Original Note: SHift SUmmary: day shift 12/24/2024- uneventful shift. Up to a chair for most of the day. 1 unit of blood given, second unit held due to fluid overload concerns. Has been on/off bipap intermittently, correlates with crackles being present intermittently in bilateral bases. Remains on lasix drip. Urine put is less than yesterday. Total oral intake: 1440 Total Urine output: 975
[2024-12-24 18:31] LABS: Hematocrit 26.5 % (36-47); Hemoglobin 8.40 g/dL (11.27-16.99); Mean Corpuscular HGB Conc 31.7 g/dL (30-55); Mean Corpuscular Hemoglobin 27.1 pg (27-33); Mean Corpuscular Volume 85.5 fl (85-98); Nucleated Red Blood Cells % 0 %; Platelet Count 285 10^3/cmm (157-399); Red Blood Count 3.10 10^6/uL (3.85-5.65); White Blood Count 16.25 10^3/uL (3.29-11.43)
[2024-12-24 18:50] LABS: Anion Gap 25.4 (5-19); Calcium 9.1 mg/dL (8.5-10.5); Carbon Dioxide 21 mmol/L (22-29); Chloride 84 mmol/L (98-107); Creatinine Clr Calc Pharmacy 13.4229; Glucose 340 mg/dL (65-115); Osmolality Calculated 302 mOsm/kg (285-295); Potassium 4.4 mmol/L (3.5-5.1); Sodium 126 mmol/L (136-145)
[2024-12-24 19:08] LABS: Blood Urea Nitrogen 88 mg/dL (8-23)
[2024-12-24 22:19] LABS: Anion Gap 26.3 (5-19); Calcium 9.0 mg/dL (8.5-10.5); Carbon Dioxide 21 mmol/L (22-29); Chloride 84 mmol/L (98-107); Creatinine Clr Calc Pharmacy 13.4229; Glucose 313 mg/dL (65-115); Osmolality Calculated 302 mOsm/kg (285-295); Potassium 4.3 mmol/L (3.5-5.1); Sodium 127 mmol/L (136-145)
[2024-12-24 22:21] LABS: Blood Urea Nitrogen 86 mg/dL (8-23)
[2024-12-25] VITALS (58 sets, daily range): BP systolic 122–174; BP diastolic 67–108; PULSE 85–115; RESP 15–36; TEMP 36.6–37.3; O2SAT 85–96
[2024-12-25 03:55] LABS: Hematocrit 24.9 % (36-47); Hemoglobin 7.90 g/dL (11.27-16.99); Mean Corpuscular HGB Conc 31.7 g/dL (30-55); Mean Corpuscular Hemoglobin 27.3 pg (27-33); Mean Corpuscular Volume 86.2 fl (85-98); Nucleated Red Blood Cells % 0 %; Platelet Count 262 10^3/cmm (157-399); Red Blood Count 2.89 10^6/uL (3.85-5.65); White Blood Count 12.05 10^3/uL (3.29-11.43)
[2024-12-25 04:07] LABS: INR 1.12 (0.8-1.2); Prothrombin Time 15.20 SECONDS (12.1-14.9)
[2024-12-25 04:18] LABS: Alanine Aminotransferase 6 U/L (0-33); Albumin Level 3.8 g/dL (3.5-5.2); Alkaline Phosphatase 116 U/L (35-105); Anion Gap 25.5 (5-19); Aspartate Amino Transferase 10 U/L (0-32); Calcium 8.9 mg/dL (8.5-10.5); Carbon Dioxide 22 mmol/L (22-29); Chloride 82 mmol/L (98-107); Creatinine Clr Calc Pharmacy 12.2027; Globulin 3.2 g/dL (1.3-4.6); Glucose 265 mg/dL (65-115); Magnesium 1.7 mg/dL (1.7-2.3); Osmolality Calculated 298 mOsm/kg (285-295); Potassium 4.5 mmol/L (3.5-5.1); Sodium 125 mmol/L (136-145); Total Protein 7.0 g/dL (6.6-8.7)
[2024-12-25 04:25] LABS: Procalcitonin 1.56 ng/mL (0-0.5)
[2024-12-25 04:32] LABS: Blood Urea Nitrogen 93 mg/dL (8-23)
[2024-12-25 04:49] LABS: NT Pro B Type Natriuretic Pept > 70000 pg/mL (0-450)
--- NOTE | 2024-12-25 07:00 | XRR_ITS ---
PROCEDURE INFORMATION: Exam: XR Chest Exam date and time: 12/25/2024 6:57 AM Age: 79 years old Clinical indication: Shortness of breath; Additional info: SOB TECHNIQUE: Imaging protocol: Radiologic exam of the chest. Views: 1 view. COMPARISON: CR (CHEST, ) 12/23/2024 1:15 PM FINDINGS: Tubes, catheters and devices: Stable PICC line. Lungs: Persistent opacity at the left lung base, and unknown combination of effusion plus atelectasis or infiltrate. Pleural spaces: Possible minimal left pleural effusion. Heart/Mediastinum: See Vasculature finding. Vasculature: Mild cardiomegaly and uncoiling of the thoracic aorta. Bones/joints: Right shoulder replacement. XR/XR chest 1V portable [id number] IMPRESSION: No significant change.
[2024-12-25] MEDS: ATORVASTATIN 10 MG TABLET 20 MG PO (08:07)
[2024-12-25 10:19] LABS: Hepatitis B Surface Antigen Non-Reactive (Nonreactive)
--- NOTE | 2024-12-25 11:11 | PM.CONSULT ---
Providers/Reason For Consult Consulting Physician/Specialty*: General Surgery Reason for Consult*: Dialysis catheter placement Attending Physician: Gwendolyn Meyers MD Primary Care Provider: Blossom Barney MD History of Present Illness History of Present Illness Adina Gracia is a 79 year old female who presents to the hospital with fluid overload and acute on chronic kidney injury. Initially has been refusing dialysis but today patient has changed her mind has decided to go forward with dialysis I have been requested by medical team to place a catheter to initiate temporary dialysis. Review of Systems General: Reports: 10 or more systems reviewed and unremarkable except in HPI and below Medications/Allergies Home Medications ?Medication ?Instructions ?Recorded ?Confirmed ?Last Taken ?Type aspirin 81 mg tablet,delayed 81 mg PO DAILY PRN UNKNOWN 03/31/20 12/22/24 12/21/24 History release metoprolol tartrate 50 mg tablet 50 mg PO BID 03/31/20 12/22/24 12/21/24 08:00 History gabapentin 300 mg capsule 300 mg PO TID 01/07/22 12/22/24 Unknown History AFO to right #1 ea 06/17/22 12/22/24 Unknown Rx infliximab-abda 100 mg intravenous 100 mg IV Q30D 08/19/22 12/22/24 Unknown History solution (Renflexis) nebulizers #1 ea 05/21/23 12/22/24 Unknown Rx mupirocin 2 % topical ointment 1 applic topical BID #22 grams 07/27/23 12/22/24 Unknown Rx amlodipine 10 mg tablet 10 mg PO DAILY 07/25/24 12/22/24 12/21/24 08:00 History allopurinol 100 mg tablet 100 mg PO BID #180 tabs 12/12/24 12/22/24 12/21/24 07:00 Rx Lactobacillus acidophilus and 1 cap PO DAILY 12/22/24 12/22/24 12/21/24 History rhamnosus 15 billion cell capsule (Probiotic) albuterol sulfate 90 mcg/actuation See Rx Instructions .Route .COMPLEX 12/22/24 12/22/24 Unknown History aerosol inhaler duloxetine 60 mg capsule,delayed 60 mg PO DAILY 12/22/24 12/22/24 12/21/24 08:00 History release furosemide 40 mg tablet 40 mg PO DAILY 12/22/24 12/22/24 Unknown History insulin aspart U-100 100 unit/mL 24 unit SUBCUT TID 12/22/24 12/22/24 12/21/24 08:00 History (3 mL) subcutaneous pen (Novolog FlexPen U-100 Insulin aspart) insulin degludec 100 unit/mL (3 60 unit SUBCUT DAILY 12/22/24 12/22/24 12/21/24 07:00 History mL) subcutaneous pen (Tresiba FlexTouch U-100 insulin) mecobalamin (vitamin B12) 1,000 1,000 mcg PO DAILY 12/22/24 12/22/24 12/20/24 History mcg chewable tablet (B12 Active) oxycodone 20 mg tablet See Rx Instructions .Route .COMPLEX 12/22/24 12/22/24 Unknown History sour castillo extract 1,000 mg 1,000 mg PO DAILY 12/22/24 12/22/24 12/20/24 History capsule (Tart Castillo Extract) tizanidine 4 mg tablet See Rx Instructions .Route .COMPLEX 12/22/24 12/22/24 Unknown History turmeric 400 mg capsule 400 mg PO DAILY 12/22/24 12/22/24 12/20/24 History Allergies Allergy/AdvReac Type Severity Reaction Status Date / Time latex Allergy Mild rash Verified 11/07/24 09:49 Penicillins Allergy Mild rash Verified 11/07/24 09:49 Sulfa (Sulfonamide Allergy Mild rash Verified 11/07/24 09:49 Antibiotics) sulindac Allergy Mild rash Verified 11/07/24 09:49 doxycycline Allergy ADR-Itching Verified 11/07/24 09:49 naproxen Allergy rash Verified 11/07/24 09:49 Current Medications Generic Name Dose Route Start Last Admin Trade Name Freq PRN Reason Stop Dose Admin Albuterol/Ipratropium 3 ml 12/21/24 02:00 12/25/24 08:24 Ipratropium-Albuterol 3 Ml Neb INHALATION 3 ml Q6H.RESP KIMI Administration Allopurinol 100 mg 12/21/24 09:00 12/25/24 08:07 Allopurinol 100 Mg Tablet PO 100 mg BID KIMI Administration Atorvastatin Calcium 20 mg 12/21/24 09:00 12/25/24 08:07 Atorvastatin 10 Mg Tablet PO 20 mg DAILY KIMI Administration Budesonide 0.5 mg 12/21/24 20:00 12/25/24 08:24 Budesonide 0.5 Mg/2 Ml Neb INHALATION 0.5 mg BID.RESPIRATORY KIMI Administration Duloxetine HCl 60 mg 12/21/24 09:00 12/25/24 08:07 Duloxetine 60 Mg Capsule PO 60 mg DAILY KIMI Administration Gabapentin 300 mg 12/21/24 09:00 12/25/24 08:07 Gabapentin 300 Mg Capsule PO 300 mg TID KIMI Administration Heparin Sodium (Porcine) 5,000 unit 12/20/24 23:34 12/23/24 23:01 Heparin 5,000 Unit/Ml Inj 1 Ml SUBCUT 5,000 unit On Hold: 12/24/24 07:54 Q12H KIMI Administration Furosemide 200 mg/ Sodium 100 mls @ 5 mls/hr 12/23/24 13:30 12/24/24 18:57 Chloride IV 10 mg/hr .Q20H KIMI 5 mls/hr Protocol Titration 10 MG/HR Insulin Human Lispro 0 unit 12/21/24 08:00 12/25/24 08:08 Insulin Lispro 100 Unit/1 Ml SUBCUT 16 unit WM&BEDTIME KIMI Administration Protocol Pantoprazole Sodium 40 mg 12/21/24 09:00 12/25/24 08:[address] 40 Mg Tablet PO 40 mg DAILY KIMI Administration PFSH Acute PFSH: Medical History Charcot foot due to diabetes mellitus Mass of right ankle Right ankle pain Coronary artery disease Chronic use of steroids Chronic anemia Dyslipidemia Atypical chest pain Seronegative rheumatoid arthritis of both hands Seronegative rheumatoid arthritis High risk medication use Immunization counseling Osteoarthritis Gout Surgical History Hx of total ankle replacement History of bilateral cataract extraction History of shoulder surgery History of hysterectomy History of arthroscopic knee surgery History of thumb surgery History of carpal tunnel surgery H/O total knee replacement History of laparoscopic cholecystectomy History of hip replacement Family History Sister CAD (coronary artery disease) Heart attack in her 50s and of the same. Mother Stroke Strong family history for CVA. Grandfather, mother, niece all had a CVA Other Asthma Diabetes Hypertension Denies family history of Lupus (systemic lupus erythematosus) Rheumatoid arthritis Social History Smoking and tobacco/nicotine status: never used tobacco/nicotine Alcohol intake: never Vitals/I&O/Wt Last Vital Signs Temp 97.8 F 12/25/24 08:00 Pulse 110 H 12/25/24 08:30 Resp 27 H 12/25/24 08:30 BP 149/95 12/25/24 08:30 Pulse Ox 89 L 12/25/24 08:30 O2 Del Method Nasal Cannula 12/25/24 08:00 O2 Flow Rate 3.5 12/25/24 08:00 FiO2 30 12/25/24 08:00 12/24/24 12/25/24 12/25/24 22:59 06:59 14:59 Intake Total 1143.750 / 1884.500 250 / 250 Output Total 500 / 1100 775 / 1875 Balance 643.750 / 784.500 -775 / 9.500 250 / 250 Weight last 48 hrs Weight 228 lb 2.855 oz Weight 229 lb 4.492 oz Physical Exam Neck/C-Spine: OTHER: Normal neck examination GI: OTHER: Abdomen is soft nontender nondistended. Urinary Catheter Management: Lion: Cath Placed During This Visit: yes Reason for Continuing Indwelling Catheter: Accurate Measurement of Urinary Output in Critically Ill Patients Urinary Catheter Date of Insertion: 12/21/24 Urinary Catheter Time of Insertion: 09:58 Data 12/25/24 02:58 12/25/24 02:58 A&P Assessment and plan 1. Acute kidney injury superimposed on CKD: Plan: I have discussed with the patient the possibility of temporary dialysis catheter placement. I discussed all the risk and benefits including the possible risk of injury to the adjacent structures including the femoral artery femoral nerve, small bowel and in the case of the neck there is risks of pneumothorax cannulation of the carotid artery or injury to the heart. I have also Explained that after placement of the catheter the catheter can be nonfunctional in the short-term requiring removal and replacement, there is a small chance of bleeding, infection of the catheter requiring removal and dialysis related complications. After discussion with the patient she agrees to proceed with catheter placement. Of note I have initially evaluated the patient around 10 AM but at the time she had refused dialysis catheter placement after conversation with the medical team and she is now agreeable. Will plan to proceed with dialysis catheter placement in the next 2 hours. PDMP PDMP Reviewed: Not Reviewed Coding Level of Care Code Acute Code for Chg Fwd Diagnoses Acute kidney injury superimposed on CKD N17.9; N18.9
--- NOTE | 2024-12-25 11:47 | PC.SOCIAL ---
IMM Update pg 2 of IMM Updated and reviewed w/ patient. Copy provided and copy dated, initialed and placed in chart.
--- NOTE | 2024-12-25 12:28 | P.PN_ITS ---
<Statement entered by Juan Daniel Carbajal MD - 12/25/24 18:37> Patient was evaluated and cared for in conjunction with an advanced practice practitioner.? I personally examined the patient and reviewed the chart and all pertinent data including imaging, telemetry, and laboratory results.? I discussed the patient in detail with the advanced practice practitioner.? Dialysis with fluid removal was recommended by the Renal specialist and the patient agreed. Patient feeling some mild improvement in SOB Remove 3L of fluid per dialysis orders Will reassess in am Subjective 2 Subjective: She continues to have significant shortness of breath, unable to rest comfortably off of BiPAP, although she is able to maintain oxygen saturation above 90% on 3 L nasal cannula. Her abdomen is distended and uncomfortable. Vitals/I&O/Wt Last Vital Signs Temp 98.1 F 12/25/24 12:00 Pulse 111 H 12/25/24 12:00 Resp 26 H 12/25/24 12:00 BP 154/87 12/25/24 12:00 Pulse Ox 85 L 12/25/24 12:00 O2 Del Method Nasal Cannula 12/25/24 08:00 O2 Flow Rate 3.5 12/25/24 08:00 FiO2 30 12/25/24 11:37 12/24/24 12/25/24 12/25/24 22:59 06:59 14:59 Intake Total 1143.750 / 1884.500 250 / 250 Output Total 500 / 1875 775 / 1875 Balance 643.750 / 9.500 -775 / 9.500 250 / 250 Weight last 48 hrs Weight 228 lb 2.855 oz Weight 229 lb 4.492 oz Physical Exam 2 Const: COMMON NORMALS: no acute distress and patient oriented x3 GENERAL APPEARANCE: cooperative ORIENTATION/CONSCIOUSNESS: Yes awake, Yes oriented to person, Yes oriented to place and Yes oriented to time Chest: COMMONS NORMALS: normal inspection of the chest and normal palpation of entire chest wall CHEST: Yes Symmetrical chest wall rise Resp: COMMON NORMALS: normal respiratory effort, No retractions and No use of accessory muscles EFFORT & INSPECTION: Yes symmetric chest movement A USCULTATION: crackles and diminished lung sounds bilateral in the lower lung bernabe Cardio: COMMON NORMALS: regular rate, regular rhythm, S1 normal heart sound present, S2 normal heart sound present, No gallops present (Cardio), No clicks present (Cardio), No murmurs present (Cardio) and No rub (Cardio) RATE: r egular rate RHYTHM: regular rhythm HEART SOUNDS: S1 normal heart sound present and S2 normal heart sound present PERIPHERAL PULSES: radial pulses present GI: INSPECTION: Yes abdominal distension Extremity: GENERAL: Yes edema (trace pitting edema bilat LE below knee) Neuro: COMMON NORMALS: patient oriented x3 and moves all extremities S ENSORIUM/ORIENTATION: Yes oriented to person, Yes oriented to place and Yes oriented to time Urinary Catheter Management: Lion: Cath Placed During This Visit: yes Reason for Continuing Indwelling Catheter: Accurate Measurement of Urinary Output in Critically Ill Patients Urinary Catheter Date of Insertion: 12/21/24 Urinary Catheter Time of Insertion: 09:58 Data 12/25/24 02:58 12/25/24 02:58 A&P Assessment and plan 1. Acute hypoxemic respiratory failure: 2. NSTEMI (non-ST elevated myocardial infarction): 3. Chronic anemia: 4. Congestive heart failure: 5. Coronary artery disease: Plan: Discussed with the patient the plan for the day. She told me of the plans to place a temporary dialysis catheter. She told me that she would like a second opinion. I have relayed this to her hospitalist service. Continue Lasix infusion, urine output is low. If she remains here rather than transferred, she will need a stress test when euvolemic. PDMP PDMP Reviewed: Not Reviewed Attestations 2 Medical Necessity Statement*: per hospitalist Coding Level of Care Code Acute Code for [facility] Diagnoses Acute hypoxemic respiratory failure J96.01 NSTEMI (non-ST elevated myocardial infarction) I21.4 Chronic anemia D64.9 Congestive heart failure I50.9 Coronary artery disease I25.10
--- NOTE | 2024-12-25 12:58 | PM.MISC ---
Miscellaneous Note Purpose of Documentation: Update on patient care Note: Left femoral dialysis catheter was placed, ready to be used as needed.
--- NOTE | 2024-12-25 12:58 | PM.ACPR ---
Procedure/Consent Time out: Time Out Performed: Yes Consent: Consent for Procedure: Consent obtained from patient, Risks & Benefits reviewed and Agrees to proceed with procedure Procedure Narrative: With the patient explained position and a timeout was conducted. I then proceeded to interrogate the bilateral groins the left groin appeared to be a good target. I proceeded to prep and drape the area in the usual sterile fashion. Under ultrasound guidance I infiltrated local anesthesia on top of the femoral vein. The femoral vein was then accessed using a 18-gauge needle under direct visualization with ultrasound. A wire was advanced and the needle removed the wire position was verified with ultrasound. A 0.5 cm cut was made in the skin at the level of the wire insertion site. The tract was dilated with serial sizes of dilators and then a 20 cm catheter was advanced into the vein over the wire, the wire was removed leaving the catheter in place. Both lumens appeared to be working properly with good flows to be able to achieve hemodialysis. The catheter was fixed to the skin with #3-0 silk. A Biopatch and sterile dressing was applied. At the end of the procedure all counts were correct patient tolerated well the procedure remained in the ICU in stable condition the catheter is ready to be used. Acute Procedures Epistaxis Control: Time out performed: Yes
--- NOTE | 2024-12-25 14:35 | P.PN_ITS ---
Subjective 2 Subjective: Seen this morning. Patient is recommended dialysis by nephrology. However patient would like to be transferred to another facility for second opinion. She wants us to call [facility]. COBRA form filled out for transfer. I discussed with her that I can call [facility] today however it will be dependent upon their bed availability. I offered if I should attempt transfer to [place] in case [facility] is not available. She states she would like to only go to [facility]. However later after having a long discussion with her regarding her current medical condition and the need for dialysis. Patient states that she would like to stay at our facility and have dialysis initiated. She states that she would only get transferred if they would start dialysis right away. I told her would be dependent upon their availability transportation and when she would arrive at the other hospital she would need to be evaluated by the on-call doctor to decide next course of treatment and further management. After long discussion patient stated that she did not want me to attempt transfer anymore and would like to stay here. I will be calling Dr. Hernandez again to request dialysis catheter placement. He was in earlier this morning however at that time patient declined to have the catheter placed. He states that she cannot breathe and wants her BiPAP back on. Vitals/I&O/Wt Last Vital Signs Temp 98.1 F 12/25/24 12:00 Pulse 98 12/25/24 14:00 Resp 25 H 12/25/24 14:00 BP 174/108 12/25/24 14:00 Pulse Ox 88 L 12/25/24 14:00 O2 Del Method BiPAP 12/25/24 13:18 O2 Flow Rate 3.5 12/25/24 08:00 FiO2 30 12/25/24 13:18 12/24/24 12/25/24 12/25/24 22:59 06:59 14:59 Intake Total 1143.750 / 1884.500 550 / 550 Output Total 500 / 1100 775 / 1875 Balance 643.750 / 784.500 -775 / 9.500 550 / 550 Weight last 48 hrs Weight 103.5 kg Weight 104 kg Physical Exam 2 Const: COMMON NORMALS: no acute distress and patient oriented x3 Resp: AUSCULTATION: crackles and wheezes OTHER: Tachypnea, wheezing crackles all lung bernabe, Appears slightly short of breath and has conversational dyspnea. Cardio: COMMON NORMALS: regular rate, regular rhythm, S1 normal heart sound present and S2 normal heart sound present RATE: regular rate RHYTHM: r egular rhythm HEART SOUNDS: S1 normal heart sound present and S2 normal heart sound present GI: COMMON NORMALS: Normal to inspection, nondistended, normoactive bowel sounds present and non-tender Extremity: COMMON NORMALS: no pedal edema NARRATIVE EXTREMITY EXAM: 2+ pitting edema Neuro: COMMON NORMALS: patient oriented x3, CN's II-XII intact bilaterally and moves all extremities Psych: COMMON NORMALS: mental status grossly normal Urinary Catheter Management: Lion: Cath Placed During This Visit: yes Reason for Continuing Indwelling Catheter: Accurate Measurement of Urinary Output in Critically Ill Patients Urinary Catheter Date of Insertion: 12/21/24 Urinary Catheter Time of Insertion: 09:58 Data 12/25/24 02:58 12/25/24 02:58 A&P Assessment and plan 1. Acute hypoxemic respiratory failure: 2. Anasarca: 3. Acute kidney injury superimposed on CKD: 4. High risk medication use: 5. Leukocytosis: 6. Seronegative rheumatoid arthritis: 7. CHF exacerbation: 8. Acute respiratory distress: 9. Pneumonia: 10. NSTEMI (non-ST elevated myocardial infarction): 11. Acute anemia: 12. Congestive heart failure: 13. Coronary artery disease: 14. Benign essential hypertension with target blood pressure below 140/90: 15. Increased anion gap metabolic acidosis: 16. Sepsis: Plan: Acute hypoxic hypercarbic respiratory failure - Multifactorial - From systolic CHF exacerbation - From multifocal pneumonia -Acute respiratory distress CT chest CT/[place] [id number] IMPRESSION: 1. Small bilateral pleural effusions with atelectatic changes in the lung bases. 2. Multiple prominent mediastinal lymph nodes measuring up to 10 mm in short axis. 3. There is an irregular pulmonary nodule in the right upper lobe measuring 16 x 14 mm (series 5, image 18) and a subsolid nodule in the left upper lobe measuring up to 18 x 17 mm (series 5, image 24). While this may represent multifocal multi lobar pneumonia true pulmonary nodules can not be excluded and in the absence of a known primary malignancy the Fleischner -Immunocompromise state -BNP over 20,000 this morning Plan -Moved to ICU - Continue BiPAP therapy as needed during the day, scheduled during the night - Switch to Lasix drip, currently at 20 mg/hr, 1 dose metolazone -Monitor BMP every 4hours - Monitor urine output, monitor creatinine - Vancomycin - Cefepime broaden to meropenem -DuoNeb - Blood cultures, sputum culture - Monitor respiratory status closely - Full code - Heparin for DVT prophylaxis Multifocal pneumonia, as above Sepsis - Secondary to pneumonia Systolic CHF exacerbation - Cardiac echo ordered IVC The inferior vena cava is dilated measuring 2.1 cm with no inspiratory collapse consistent with increased right atrial pressure. CONCLUSIONS 1. Left ventricular segmental wall motion abnormality in the basal inferior and inferolateral wall segments with overall normal ejection fraction of 54%. 2. Mild mitral valve regurgitation 3. Stage II left ventricular diastolic dysfunction 4. Mild concentric left ventricular hypertrophy 5. Mild pulmonary hypertension NSTEMI - No chest pain complaints - Aspirin, statin - History of cardiac cath 03/2020 Diagnostic Findings * No significant disease noted in the Left Main, LAD, Circumflex, or RCA coronary arteries. * Mid Circumflex Coronary Artery: has lesion. * Coronary angiography shows right dominance. * The left main is a medium caliber vessel with minimal intimal irregularities. * The left anterior descending artery is a relatively small to medium caliber vessel with diffuse disease, lesions ranging anywhere from 30 to 50%. The distal artery is a small caliber vessel which wrap around the LV apex minimally. The artery gives off multiple diagonal branches. The second diagonal branch was found to have 40 to 50% diffuse narrowing in the proximal segment. The other diagonal branches were found to have mild diffuse disease. * The circumflex artery is a medium to large caliber vessel which was found to have around 40% proximal segmental narrowing. The first obtuse marginal branch is a relatively small caliber vessel with 50 to 60% diffuse narrowing. Right after the second obtuse marginal branch, the artery appears to have around 50 to 60% tubular narrowing with some haziness. No other significant stenotic lesions were seen. * The right coronary artery is a medium caliber dominant vessel which also was found to have mild to moderate diffuse disease in the proximal and distal segment. The lesions were ranging anywhere from 30 to 50%. The PDA branch was found to have a proximal around 40% narrowing involving the ostium. No other significant stenotic lesions were noted. - Cardiac echo as above - Cardiology consulted Acute kidney injury -Creatinine 3.9 -Component of sepsis -Urine output 3 L -With hyperkalemia, hyponatremia, metabolic acidosis - Monitor urine output, monitor creatinine - Nephrology consulted - Patient declines dialysis Increased anion gap and metabolic acidosis - From acute renal failure, sepsis Liver cirrhosis? Etiology unclear Type 2 diabetes mellitus, low-dose sliding scale Acute on chronic anemia, monitor - Hemoglobin 6.8, will transfuse 1 unit PRBC DVT prophylaxis: Heparin 5000 subcutaneously every 12 hours, on hold due to anemia, SCDs Full code Continue IV antibiotics, Lasix drip, transfuse 1 unit. BC 12/25/2024 Consulted neurosurgery for temporary dialysis catheter placement. Patient will require dialysis today. Nephrology following and consulted. Hemoglobin 7.9 this morning most likely secondary to iron deficiency anemia secondary to CKD. Patient is significantly fluid overloaded. Requires dialysis for fluid removal. proBNP greater than 70,000. Procalcitonin 1.56. CT abdomen pelvis on 12/20 showed multifocal pneumonia. Also has irregular pulmonary nodule in right upper lobe measuring 16 x 14 mm. Patient does have cirrhotic liver. Her shortness of breath is multifactorial secondary to renal failure, CHF, multifocal pneumonia. Eventually we need interventional pulmonary consult for lymph node biopsy if patient agreeable. She is on infliximab every 30 days. Continue patient on Vanco and meropenem. PDMP PDMP Reviewed: Not Reviewed Attestations 2 Medical Necessity Statement*: Patient requires hospitalization for acute anemia, CHF, respiratory failure, PUSHPA, NSTEMI Diagnoses Acute hypoxemic respiratory failure J96.01 Anasarca R60.1 Acute kidney injury superimposed on CKD N17.9; N18.9 High risk medication use Z79.899 Leukocytosis D72.829 Seronegative rheumatoid arthritis M06.00 CHF exacerbation I50.9 Acute respiratory distress R06.03 Pneumonia J18.9 NSTEMI (non-ST elevated myocardial infarction) I21.4 Acute anemia D64.9 Congestive heart failure I50.9 Coronary artery disease I25.10 Benign essential hypertension with target blood pressure below 140/90 I10 Increased anion gap metabolic acidosis E87.29 Sepsis A41.9
[2024-12-25] MEDS: heparin, porcine 1,000 unit/mL INJ 10 mL 1000 UNIT IV (15:30)
[2024-12-25] MEDS: heparin, porcine 1,000 unit/mL INJ 10 mL 10000 UNIT INTRACATH (16:08)
--- NOTE | 2024-12-25 17:14 | PM.PN ---
Subjective Subjective: increased SOB Medications: Reviewed: Yes Vitals/I&O/Wt Last Vital Signs Temp 99.1 F 12/25/24 16:11 Pulse 112 H 12/25/24 16:30 Resp 22 H 12/25/24 16:30 BP 148/81 12/25/24 16:30 Pulse Ox 87 L 12/25/24 16:30 O2 Del Method BiPAP 12/25/24 13:18 O2 Flow Rate 3.5 12/25/24 08:00 FiO2 30 12/25/24 15:32 12/25/24 12/25/24 12/25/24 06:59 14:59 22:59 Intake Total 550 / 550 92.167 / 642.167 Output Total 775 / 1875 Balance -775 / 9.500 550 / 550 92.167 / 642.167 Weight last 48 hrs Weight 103.5 kg Weight 104 kg Physical Exam Narrative: on 3 L O2 ,No distress PEERLA S1S2 RRR perr eport Lungs with decreased BS Abd , soft , non tender No edema Urinary Catheter Management: Lion: Cath Placed During This Visit: yes Reason for Continuing Indwelling Catheter: Accurate Measurement of Urinary Output in Critically Ill Patients Urinary Catheter Date of Insertion: 12/21/24 Urinary Catheter Time of Insertion: 09:58 Data 12/25/24 02:58 12/25/24 02:58 A&P Assessment and plan 1. Acute kidney injury superimposed on CKD: Plan: 1. Acute on chronic kidney disease stage IV: Patient's baseline is anywhere from 1.5-2.5. On presentation creatinine is 3.4,. No obstruction seen on CT. UA with 3+ protein. - Patient currently volume overloaded with anasarca and has mild metabolic acidosis - on IV lasix drip , s/p IV albumin - Patient also have liver cirrhosis -Renal fxn worse and pt c/o worsening SOB , pt has been declinig HD but agrees now - requested temporary HD catheter and plan to start HD TODAY - Avoid IV contrast studies, discussed with family at bedside - Also will check urine protein to creatinine ratio, follow-up SPEP UPEP, check HAYLEE and ANCA levels. 2. Diastolic CHF, repeat echo, last echo was in 2021. IV Lasix as above 3. Liver cirrhosis, new diagnosis needs workup 4. Metabolic acidosis, mild monitor 5. Hyponatremia, mild, likely hypervolemic 6. History of rheumatoid arthritis, on infliximab 7. Hyperkalemia , med mx Patient evaluated using audiovisual cart. Time spent 40 minutes PDMP PDMP Reviewed: Not Reviewed Attestations Medical Necessity Statement*: PER [facility] Coding Level of Care Code Acute Code for [facility] Fwd Diagnoses Acute kidney injury superimposed on CKD N17.9; N18.9
[2024-12-26] VITALS (52 sets, daily range): BP systolic 127–164; BP diastolic 67–116; PULSE 88–115; RESP 17–33; TEMP 36.6–37.2; O2SAT 90–98
[2024-12-26 02:54] LABS: Hematocrit 24.9 % (36-47); Hemoglobin 7.70 g/dL (11.27-16.99); Mean Corpuscular HGB Conc 30.9 g/dL (30-55); Mean Corpuscular Hemoglobin 26.9 pg (27-33); Mean Corpuscular Volume 87.1 fl (85-98); Nucleated Red Blood Cells % 0 %; Platelet Count 286 10^3/cmm (157-399); Red Blood Count 2.86 10^6/uL (3.85-5.65); White Blood Count 19.78 10^3/uL (3.29-11.43)
[2024-12-26 04:40] LABS: INR 1.09 (0.8-1.2); Prothrombin Time 14.90 SECONDS (12.1-14.9)
[2024-12-26 04:50] LABS: Alanine Aminotransferase 8 U/L (0-33); Albumin Level 3.5 g/dL (3.5-5.2); Alkaline Phosphatase 103 U/L (35-105); Aspartate Amino Transferase 13 U/L (0-32); Blood Urea Nitrogen 71 mg/dL (8-23); Calcium 9.0 mg/dL (8.5-10.5); Carbon Dioxide 23 mmol/L (22-29); Chloride 88 mmol/L (98-107); Creatinine Clr Calc Pharmacy 16.9543; Globulin 4.0 g/dL (1.3-4.6); Glucose 304 mg/dL (65-115); Magnesium 1.9 mg/dL (1.7-2.3); Osmolality Calculated 304 mOsm/kg (285-295); Procalcitonin 1.58 ng/mL (0-0.5); Sodium 131 mmol/L (136-145); Total Protein 7.5 g/dL (6.6-8.7)
[2024-12-26 05:28] LABS: NT Pro B Type Natriuretic Pept > 70000 pg/mL (0-450)
[2024-12-26 05:35] LABS: Anion Gap 23.8 (5-19); Potassium 3.8 mmol/L (3.5-5.1)
--- NOTE | 2024-12-26 07:19 | PM.PN ---
Subjective Subjective: Doing better over the last 24 hours. After dialysis catheter placement she was able to get hemodialysis. Vitals/I&O/Wt Last Vital Signs Temp 98.5 F 12/25/24 20:00 Pulse 93 12/26/24 06:30 Resp 30 H 12/26/24 06:30 BP 128/67 12/26/24 06:30 Pulse Ox 94 12/26/24 06:30 O2 Del Method BiPAP 12/26/24 04:00 O2 Flow Rate 3 12/25/24 20:00 FiO2 30 12/26/24 04:00 12/25/24 12/26/24 12/26/24 22:59 06:59 14:59 Intake Total 592.167 / 1142.167 Output Total 4350 / 4350 950 / 5300 Balance -3757.833 / -3207.833 -950 / -4157.833 Weight last 48 hrs Weight 222 lb 14.197 oz Weight 220 lb 7.396 oz Weight 228 lb 2.855 oz Physical Exam Extremity: NARRATIVE EXTREMITY EXAM: Left groin hemodialysis catheter in place no significant issues Urinary Catheter Management: Lion: Cath Placed During This Visit: yes Reason for Continuing Indwelling Catheter: Accurate Measurement of Urinary Output in Critically Ill Patients Urinary Catheter Date of Insertion: 12/21/24 Urinary Catheter Time of Insertion: 09:58 Data 12/26/24 02:40 12/26/24 02:40 A&P Assessment and plan 1. Acute kidney injury superimposed on CKD: Plan: Patient doing okay from the surgical standpoint catheter is in place she was able to receive hemodialysis. General surgery will remain available as needed for placement of tunneled dialysis catheter if patient decides to continue long-term dialysis. PDMP PDMP Reviewed: Not Reviewed Attestations Medical Necessity Statement*: Per medical team Coding Level of Care Code Acute Code for [facility] Fwd Diagnoses Acute kidney injury superimposed on CKD N17.9; N18.9
[2024-12-26] MEDS: ATORVASTATIN 10 MG TABLET 20 MG PO (08:28)
[2024-12-26] MEDS: heparin, porcine 1,000 unit/mL INJ 10 mL 1000 UNIT IV (09:15)
--- NOTE | 2024-12-26 09:45 | P.PN_ITS ---
Subjective 2 Subjective: no new c/o SOB improved some Medications: Reviewed: Yes Vitals/I&O/Wt Last Vital Signs Temp 97.9 F 12/26/24 08:00 Pulse 104 H 12/26/24 08:42 Resp 23 H 12/26/24 08:30 BP 153/94 12/26/24 08:30 Pulse Ox 93 12/26/24 08:30 O2 Del Method BiPAP 12/26/24 08:26 O2 Flow Rate 3 12/26/24 08:26 FiO2 30 12/26/24 04:00 12/25/24 12/26/24 12/26/24 22:59 06:59 14:59 Intake Total 592.167 / 1142.167 200 / 200 Output Total 4350 / 4350 950 / 5300 Balance -3757.833 / -3207.833 -950 / -4157.833 200 / 200 Weight last 48 hrs Weight 101.1 kg Weight 100 kg Weight 103.5 kg Physical Exam 2 Narrative: on 3 L O2 ,No distress PEERLA S1S2 RRR perr eport Lungs with decreased BS Abd , distended No edema Urinary Catheter Management: Lion: Cath Placed During This Visit: yes Reason for Continuing Indwelling Catheter: Accurate Measurement of Urinary Output in Critically Ill Patients Urinary Catheter Date of Insertion: 12/21/24 Urinary Catheter Time of Insertion: 09:58 Data 12/26/24 02:40 12/26/24 02:40 A&P Assessment and plan 1. Acute kidney injury superimposed on CKD: Plan: 1. Acute on chronic kidney disease stage IV: Patient's baseline is anywhere from 1.5-2.5. On presentation creatinine is 3.4,. No obstruction seen on CT. UA with 3+ protein. - Patient currently volume overloaded with anasarca and has mild metabolic acidosis - Patient also have liver cirrhosis -Renal fxn worse and pt c/o worsening SOB , pt has been declinig HD but agrees now - requested temporary HD catheter and s/p HD started , #2 HD today - Avoid IV contrast studies, discussed with family at bedside - Also will check urine protein to creatinine ratio, follow-up SPEP UPEP, check HAYLEE and ANCA levels. 2. Diastolic CHF, repeat echo, last echo was in 2021. 3. Liver cirrhosis, new diagnosis needs workup, and has ? Ascites 4. Metabolic acidosis, mild monitor 5. Hyponatremia, mild, likely hypervolemic 6. History of rheumatoid arthritis, on infliximab 7. Hyperkalemia , med mx 8. persistent SOB despite HD x 2 sessions , tachycardic --> consider ruling out PE Patient evaluated using audiovisual cart. Time spent 40 minutes PDMP PDMP Reviewed: Not Reviewed Attestations 2 Medical Necessity Statement*: per [facility] Coding Level of Care Code Acute Code for Chg Fwd Diagnoses Acute kidney injury superimposed on CKD N17.9; N18.9
[2024-12-26] MEDS: heparin, porcine 1,000 unit/mL INJ 10 mL 10000 UNIT INTRACATH (11:03)
--- NOTE | 2024-12-26 11:20 | P.PN_ITS ---
<Statement entered by Juan Daniel Carbajal MD - 12/27/24 08:03> Patient was evaluated and cared for in conjunction with an advanced practice practitioner.? I personally saw the patient and reviewed the chart and all pertinent data including imaging, telemetry, and laboratory results.? I discussed the patient in detail with the advanced practice practitioner.? Her volume overload seems out of proportion to what would be expected from diastolic heart failure. I will reserve further evaluation of the cirrhotic liver findings on CT scan to the primary team. She is starting to improve somewhat with volume removal with dialysis however I am concerned for liver cirrhosis as a significant issue. Subjective 2 Subjective: She has dialysis planned for today. Lasix drip is off. Fluid balance: -4407 last 24 hours, -8423 cumulative. Blood pressure has been elevated at times. Work of breathing is decreased from yesterday although still labored, abdomen still distended but softer. She was short of breath at the time of my exam, stated she was trying to stay off the BiPAP for long as possible . She had some tightness in the upper mid chest that just started while we were talking. Hemoglobin down to 7.7 from 7.9 yesterday. Recommend blood transfusion. Vitals/I&O/Wt Last Vital Signs Temp 97.9 F 12/26/24 08:00 Pulse 104 H 12/26/24 08:42 Resp 23 H 12/26/24 08:30 BP 153/94 12/26/24 08:30 Pulse Ox 93 12/26/24 08:30 O2 Del Method BiPAP 12/26/24 08:26 O2 Flow Rate 3 12/26/24 08:26 FiO2 30 12/26/24 04:00 12/25/24 12/26/24 12/26/24 22:59 06:59 14:59 Intake Total 592.167 / 1142.167 200 / 200 Output Total 4350 / 5300 950 / 5300 Balance -3757.833 / -4157.833 -950 / -4157.833 200 / 200 Weight last 48 hrs Weight 222 lb 14.197 oz Weight 220 lb 7.396 oz Weight 228 lb 2.855 oz Physical Exam 2 Const: COMMON NORMALS: no acute distress and patient oriented x3 GENERAL APPEARANCE: cooperative and comfortable ORIENTATION/CONSCIOUSNESS: Yes awake, Yes oriented to person, Yes oriented to place and Yes oriented to time Chest: COMMONS NORMALS: normal inspection of the chest and normal palpation of entire chest wall CHEST: Yes Symmetrical chest wall rise Resp: COMMON NORMALS: normal respiratory effort, No retractions and No use of accessory muscles EFFORT & INSPECTION: Yes symmetric chest movement A USCULTATION: crackles Laterality: bilateral and posterior and diminished lung sounds bilateral in the lower lung bernabe Cardio: COMMON NORMALS: regular rate, regular rhythm, S1 normal heart sound present, S2 normal heart sound present, No gallops present (Cardio), No clicks present (Cardio), No murmurs present (Cardio) and No rub (Cardio) RATE: r egular rate RHYTHM: regular rhythm HEART SOUNDS: S1 normal heart sound present and S2 normal heart sound present PERIPHERAL PULSES: radial pulses present Extremity: GENERAL: Yes edema (trace to 1+ pitting edema bilat LE below knee) Neuro: COMMON NORMALS: patient oriented x3 and moves all extremities S ENSORIUM/ORIENTATION: Yes oriented to person, Yes oriented to place and Yes oriented to time Urinary Catheter Management: Lion: Cath Placed During This Visit: yes Reason for Continuing Indwelling Catheter: Accurate Measurement of Urinary Output in Critically Ill Patients Urinary Catheter Date of Insertion: 12/21/24 Urinary Catheter Time of Insertion: 09:58 Data 12/26/24 02:40 12/26/24 02:40 A&P Assessment and plan 1. Acute hypoxemic respiratory failure: 2. NSTEMI (non-ST elevated myocardial infarction): 3. Chronic anemia: 4. CHF exacerbation: 5. Coronary artery disease: 6. Benign essential hypertension with target blood pressure below 140/90: Plan: Will attempt to avoid any contrast studies, plan for Lexiscan stress test to evaluate for coronary ischemia, possibly tomorrow if her breathing and volume status is improved. Recommend blood transfusion. Blood pressure higher while in dialysis treatment, will reassess after therapy complete. PDMP PDMP Reviewed: Not Reviewed Attestations 2 Medical Necessity Statement*: Requiring temporary dialysis for volume overload Coding Level of Care Code Acute Code for [facility] Fwd Diagnoses Acute hypoxemic respiratory failure J96.01 NSTEMI (non-ST elevated myocardial infarction) I21.4 Chronic anemia D64.9 CHF exacerbation I50.9 Coronary artery disease I25.10 Benign essential hypertension with target blood pressure below 140/90 I10
--- NOTE | 2024-12-26 15:29 | USR_ITS ---
PROCEDURE INFORMATION: Exam: US Duplex Lower Extremity Veins, Bilateral Exam date and time: 12/26/2024 4:33 PM Age: 79 years old Clinical indication: Screening exam; R/O dvt TECHNIQUE: Imaging protocol: Real-time duplex ultrasound of the bilateral extremities with 2-D buckley scale, color Doppler flow and spectral waveform analysis including responses to compression and other maneuvers (when performed) with image documentation. Complete exam focused on the lower extremity veins. COMPARISON: [place] [id number] 12/21/2024 12:00 AM FINDINGS: Right deep veins: Unremarkable. The common femoral, femoral, proximal profunda femoral and popliteal veins are patent without thrombus. Normal Doppler waveforms. Normal compressibility and/or augmentation response. Left deep veins: Unremarkable. The common femoral, femoral, proximal profunda femoral and popliteal veins are patent without thrombus. Normal Doppler waveforms. Normal compressibility and/or augmentation response. Superficial veins: Greater saphenous veins at the saphenofemoral junctions are patent bilaterally without thrombus. Soft tissues: Unremarkable. US/[place] [id number] IMPRESSION: No evidence of deep vein thrombosis.
--- NOTE | 2024-12-26 15:30 | US_ITS ---
WS: [id number] Abdominal ultrasound, limited. History: Evaluate for ascites. Comparison: None. All 4 quadrants are imaged by ultrasound to evaluate for ascites. There is no peritoneal fluid identified. US/US abdomen lmt fluid [id number] IMPRESSION: No peritoneal ascites.
--- NOTE | 2024-12-26 15:32 | P.PN_ITS ---
Subjective 2 Subjective: Seen this morning. Patient undergoing dialysis at this time. 3 L were removed yesterday. She subjectively states her shortness of breath is slightly better. Currently on BiPAP. I discussed her pulmonary nodule with her to which she states that I am 79 years old I do not think I want further workup however we agreed to discuss at a later time. Vitals/I&O/Wt Last Vital Signs Temp 99.0 F 12/26/24 14:08 Pulse 108 H 12/26/24 15:00 Resp 20 H 12/26/24 14:50 BP 148/90 12/26/24 14:08 Pulse Ox 95 12/26/24 14:50 O2 Del Method Nasal Cannula 12/26/24 14:50 O2 Flow Rate 3 12/26/24 14:50 FiO2 30 12/26/24 11:05 12/26/24 12/26/24 12/26/24 06:59 14:59 22:59 Intake Total 1000 / 1000 Output Total 950 / 5300 3500 / 3500 Balance -950 / -4157.833 -2500 / -2500 Weight last 48 hrs Weight 97.5 kg Weight 101.1 kg Weight 100 kg Weight 103.5 kg Physical Exam 2 Const: COMMON NORMALS: no acute distress and patient oriented x3 Resp: COMMON NORMALS: clear to auscultation bilaterally AUSCULTATION: clear to auscultation bilaterally OTHER: clear to auscultation b/l , no wheezes or ronchi, currently getting dialysis Cardio: COMMON NORMALS: regular rate, regular rhythm, S1 normal heart sound present and S2 normal heart sound present RATE: regular rate RHYTHM: r egular rhythm HEART SOUNDS: S1 normal heart sound present and S2 normal heart sound present GI: COMMON NORMALS: Normal to inspection, nondistended, normoactive bowel sounds present and non-tender Extremity: COMMON NORMALS: no pedal edema NARRATIVE EXTREMITY EXAM: 2+ pitting edema Neuro: COMMON NORMALS: patient oriented x3, CN's II-XII intact bilaterally and moves all extremities Psych: COMMON NORMALS: mental status grossly normal Urinary Catheter Management: Lion: Cath Placed During This Visit: yes Reason for Continuing Indwelling Catheter: Accurate Measurement of Urinary Output in Critically Ill Patients Urinary Catheter Date of Insertion: 12/21/24 Urinary Catheter Time of Insertion: 09:58 Data 12/26/24 02:40 12/26/24 02:40 A&P Assessment and plan 1. Acute hypoxemic respiratory failure: 2. Anasarca: 3. Acute kidney injury superimposed on CKD: 4. High risk medication use: 5. Leukocytosis: 6. Seronegative rheumatoid arthritis: 7. CHF exacerbation: 8. Acute respiratory distress: 9. Pneumonia: 10. NSTEMI (non-ST elevated myocardial infarction): 11. Acute anemia: 12. Congestive heart failure: 13. Coronary artery disease: 14. Benign essential hypertension with target blood pressure below 140/90: 15. Increased anion gap metabolic acidosis: 16. Sepsis: Plan: Acute hypoxic hypercarbic respiratory failure - Multifactorial - From systolic CHF exacerbation - From multifocal pneumonia -Acute respiratory distress CT chest CT/[place] [id number] IMPRESSION: 1. Small bilateral pleural effusions with atelectatic changes in the lung bases. 2. Multiple prominent mediastinal lymph nodes measuring up to 10 mm in short axis. 3. There is an irregular pulmonary nodule in the right upper lobe measuring 16 x 14 mm (series 5, image 18) and a subsolid nodule in the left upper lobe measuring up to 18 x 17 mm (series 5, image 24). While this may represent multifocal multi lobar pneumonia true pulmonary nodules can not be excluded and in the absence of a known primary malignancy the Fleischner -Immunocompromise state -BNP over 20,000 this morning Plan -Moved to ICU - Continue BiPAP therapy as needed during the day, scheduled during the night - Switch to Lasix drip, currently at 20 mg/hr, 1 dose metolazone -Monitor BMP every 4hours - Monitor urine output, monitor creatinine - Vancomycin - Cefepime broaden to meropenem -DuoNeb - Blood cultures, sputum culture - Monitor respiratory status closely - Full code - Heparin for DVT prophylaxis Multifocal pneumonia, as above Sepsis - Secondary to pneumonia Systolic CHF exacerbation - Cardiac echo ordered IVC The inferior vena cava is dilated measuring 2.1 cm with no inspiratory collapse consistent with increased right atrial pressure. CONCLUSIONS 1. Left ventricular segmental wall motion abnormality in the basal inferior and inferolateral wall segments with overall normal ejection fraction of 54%. 2. Mild mitral valve regurgitation 3. Stage II left ventricular diastolic dysfunction 4. Mild concentric left ventricular hypertrophy 5. Mild pulmonary hypertension NSTEMI - No chest pain complaints - Aspirin, statin - History of cardiac cath 03/2020 Diagnostic Findings * No significant disease noted in the Left Main, LAD, Circumflex, or RCA coronary arteries. * Mid Circumflex Coronary Artery: has lesion. * Coronary angiography shows right dominance. * The left main is a medium caliber vessel with minimal intimal irregularities. * The left anterior descending artery is a relatively small to medium caliber vessel with diffuse disease, lesions ranging anywhere from 30 to 50%. The distal artery is a small caliber vessel which wrap around the LV apex minimally. The artery gives off multiple diagonal branches. The second diagonal branch was found to have 40 to 50% diffuse narrowing in the proximal segment. The other diagonal branches were found to have mild diffuse disease. * The circumflex artery is a medium to large caliber vessel which was found to have around 40% proximal segmental narrowing. The first obtuse marginal branch is a relatively small caliber vessel with 50 to 60% diffuse narrowing. Right after the second obtuse marginal branch, the artery appears to have around 50 to 60% tubular narrowing with some haziness. No other significant stenotic lesions were seen. * The right coronary artery is a medium caliber dominant vessel which also was found to have mild to moderate diffuse disease in the proximal and distal segment. The lesions were ranging anywhere from 30 to 50%. The PDA branch was found to have a proximal around 40% narrowing involving the ostium. No other significant stenotic lesions were noted. - Cardiac echo as above - Cardiology consulted Acute kidney injury -Creatinine 3.9 -Component of sepsis -Urine output 3 L -With hyperkalemia, hyponatremia, metabolic acidosis - Monitor urine output, monitor creatinine - Nephrology consulted - Patient declines dialysis Increased anion gap and metabolic acidosis - From acute renal failure, sepsis Liver cirrhosis? Etiology unclear Type 2 diabetes mellitus, low-dose sliding scale Acute on chronic anemia, monitor - Hemoglobin 6.8, will transfuse 1 unit PRBC DVT prophylaxis: Heparin 5000 subcutaneously every 12 hours, on hold due to anemia, SCDs Full code Continue IV antibiotics, Lasix drip, transfuse 1 unit. 12/25/2024 Consulted neurosurgery for temporary dialysis catheter placement. Patient will require dialysis today. Nephrology following and consulted. Hemoglobin 7.9 this morning most likely secondary to iron deficiency anemia secondary to CKD. Patient is significantly fluid overloaded. Requires dialysis for fluid removal. proBNP greater than 70,000. Procalcitonin 1.56. CT abdomen pelvis on 12/20 showed multifocal pneumonia. Also has irregular pulmonary nodule in right upper lobe measuring 16 x 14 mm. Patient does have cirrhotic liver. Her shortness of breath is multifactorial secondary to renal failure, CHF, multifocal pneumonia. Eventually we need interventional pulmonary consult for lymph node biopsy if patient agreeable. She is on infliximab every 30 days. Continue patient on Vanco and meropenem. 12/26/2024 Patient undergoing dialysis at this time. She does have evidence of liver cirrhosis on her CT scan. Unclear if patient was aware of this diagnosis prior. IVC dilated 2.1 cm on echo. Does have wall motion abnormalities in basal inferior and inferolateral wall segments. EF 54%. Cardiology consulted. Plan for stress test in AM. After first session of dialysis 3 L was removed. Subjectively shortness of breath is slightly better. Undergoing second session of dialysis today. Will check venous Dopplers bilateral lower extremities ? Due to elevated creatinine will check VQ scan and check D-dimer. ? Will do abdominal ultrasound to assess for ascites. Patient may require paracentesis if ascites present. This may be causing restrictive phenomenon for lungs contributing to her shortness of breath. ? She does have multifocal pneumonia for which she is on bank and meropenem at this time. ? I will discuss with pulmonology as well however I have been told there is no one on-call today. ? Will continue to monitor patient and complete above workup. ? I discussed with patient briefly this morning regarding her lung nodule however she stated that she is 79 years old and probably will not undergo further workup for that at this time however would like to discuss with me at a later time. ? Hemoglobin 7.7 this morning. ? Check iron panel, ferritin, TIBC percent saturation ? White count 19,000 today. Has been persistently elevated in last few visits. Unclear if this is secondary to infection versus possible underlying leukemia. Will check lymphoma leukemia profile and check peripheral smear. ? I will complete antibiotics for 10 days total to cover for her multifocal pneumonia ? Continue to monitor in ICU. ? Appreciate cardiology and nephrology recommendations PDMP PDMP Reviewed: Not Reviewed Attestations 2 Medical Necessity Statement*: Ongoing dialysis requirement, shortness of breath, wall motion abnormalities on echo. Diagnoses Acute hypoxemic respiratory failure J96.01 Anasarca R60.1 Acute kidney injury superimposed on CKD N17.9; N18.9 High risk medication use Z79.899 Leukocytosis D72.829 Seronegative rheumatoid arthritis M06.00 CHF exacerbation I50.9 Acute respiratory distress R06.03 Pneumonia J18.9 NSTEMI (non-ST elevated myocardial infarction) I21.4 Acute anemia D64.9 Congestive heart failure I50.9 Coronary artery disease I25.10 Benign essential hypertension with target blood pressure below 140/90 I10 Increased anion gap metabolic acidosis E87.29 Sepsis A41.9
[2024-12-26 16:17] LABS: Ferritin 797 ng/mL (15-150); Iron 34 ug/dL (37-145); Total Iron Binding Capacity 165 mcg/dl; Unsaturated Iron Binding 131 ug/dL (112-347)
[2024-12-26 16:58] LABS: LAB Peripheral Smear Sent for Review
[2024-12-26 20:08] LABS: Coronavirus 229E,HKU1,NL63,OC4 Not Detected (NOT DETECT); Parainfluenza Virus Type 1 Not Detected (NOT DETECT); Parainfluenza Virus Type 2 Not Detected (NOT DETECT); Parainfluenza Virus Type 3 Not Detected (NOT DETECT); Parainfluenza Virus Type 4 Not Detected (NOT DETECT); SARS-COV-2 Not Detected (NOT DETECT)
[2024-12-27] VITALS (34 sets, daily range): BP systolic 115–164; BP diastolic 60–95; PULSE 86–127; RESP 16–42; TEMP 36.6–37.2; O2SAT 92–98
[2024-12-27 04:07] LABS: Hematocrit 26.3 % (36-47); Hemoglobin 8.10 g/dL (11.27-16.99); Mean Corpuscular HGB Conc 30.8 g/dL (30-55); Mean Corpuscular Hemoglobin 27.1 pg (27-33); Mean Corpuscular Volume 88.0 fl (85-98); Nucleated Red Blood Cells % 0 %; Platelet Count 291 10^3/cmm (157-399); Red Blood Count 2.99 10^6/uL (3.85-5.65); White Blood Count 22.47 10^3/uL (3.29-11.43)
[2024-12-27 04:20] LABS: INR 1.11 (0.8-1.2); Prothrombin Time 15.00 SECONDS (12.1-14.9)
[2024-12-27 04:32] LABS: Alanine Aminotransferase 9 U/L (0-33); Albumin Level 3.4 g/dL (3.5-5.2); Alkaline Phosphatase 97 U/L (35-105); Anion Gap 18.2 (5-19); Aspartate Amino Transferase 11 U/L (0-32); Blood Urea Nitrogen 60 mg/dL (8-23); Calcium 9.1 mg/dL (8.5-10.5); Carbon Dioxide 26 mmol/L (22-29); Chloride 96 mmol/L (98-107); Creatinine Clr Calc Pharmacy 16.2031; Globulin 3.8 g/dL (1.3-4.6); Glucose 172 mg/dL (65-115); Magnesium 1.8 mg/dL (1.7-2.3); Osmolality Calculated 303 mOsm/kg (285-295); Potassium 4.2 mmol/L (3.5-5.1); Sodium 136 mmol/L (136-145); Total Protein 7.2 g/dL (6.6-8.7)
[2024-12-27 04:39] LABS: Procalcitonin 1.19 ng/mL (0-0.5)
[2024-12-27 05:00] LABS: NT Pro B Type Natriuretic Pept > 70000 pg/mL (0-450)
--- NOTE | 2024-12-27 07:11 | XR_ITS ---
WS: [id number] PORTABLE CHEST HISTORY: lung scan COMPARISON: 12/25/2024 Scattered pulmonary opacifications throughout both lungs On the RIGHT. These have increased since the prior study. Very small LEFT pleural effusion. No pneumothorax. Cardiac size: Mildly enlarged cardiac silhouette. Mediastinum/Aorta: Ectatic thoracic aorta. Prior RIGHT humeral head replacement. Right-sided PICC line. XR/XR chest 1V portable [id number] IMPRESSION: 1. Increase in bilateral pulmonary opacifications, pneumonia versus edema. 2. Very small LEFT pleural effusion. 3. Cardiomegaly.
[2024-12-27] MEDS: ATORVASTATIN 10 MG TABLET 20 MG PO (08:38)
--- NOTE | 2024-12-27 09:21 | PM.PN ---
Subjective Subjective: Decreased shortness of breath. Decreased edema feeling better after dialysis for the last 2 days. No nausea no vomiting no diarrhea. Medications: Reviewed: Yes Medication Review Details: Current Medications Acetaminophen (Acetaminophen 325 Mg Tablet) 650 mg PO Q6H PRN PRN Reason: Mild/Mod Pain Or Temp >/= 101 Albuterol/Ipratropium (Ipratropium-Albuterol 3 Ml Neb) 3 ml INHALATION Q6H.RESP KIMI Last Admin: 12/27/24 08:11 Dose: 3 ml Allopurinol (Allopurinol 100 Mg Tablet) 100 mg PO BID KIMI Last Admin: 12/27/24 08:38 Dose: 100 mg Aspirin (Aspirin 81 Mg Ec Tablet) 81 mg PO DAILY PRN PRN Reason: UNKNOWN Atorvastatin Calcium (Atorvastatin 10 Mg Tablet) 20 mg PO DAILY [facility] Last Admin: 12/27/24 08:38 Dose: 20 mg Budesonide (Budesonide 0.5 Mg/2 Ml Neb) 0.5 mg INHALATION BID.RESPIRATORY [facility] Last Admin: 12/27/24 08:11 Dose: 0.5 mg Duloxetine HCl (Duloxetine 60 Mg Capsule) 60 mg PO DAILY [facility] Last Admin: 12/27/24 08:38 Dose: 60 mg Gabapentin (Gabapentin 300 Mg Capsule) 300 mg PO TID [facility] Last Admin: 12/27/24 08:38 Dose: 300 mg Glucagon (Glucagon 1 Mg/Ml Kit 1 Ml) 1 mg IM ONCE PRN; Protocol PRN Reason: Adult Acute Hypoglycemia Nursing Prot. Heparin Sodium (Porcine) (Heparin 5,000 Unit/Ml Inj 1 Ml) 5,000 unit SUBCUT Q12H [facility] On Hold: 12/24/24 07:54 Last Admin: 12/23/24 23:01 Dose: 5,000 unit Dextrose (D5w) 500 mls @ 0 mls/hr IV ONCE PRN; Protocol PRN Reason: Adult Acute Hypoglycemia Prot Dextrose (D10w) 125 mls @ 750 mls/hr IV PRN PRN; Protocol PRN Reason: Adult Acute Hypoglycemia Nursing Protocol Dextrose (D10w) 250 mls @ 1,000 mls/hr IV PRN PRN; Protocol PRN Reason: Adult Acute Hypoglycemia Nursing Protocol Sodium Chloride (Sodium Chloride 0.9%) 1,000 mls @ 0 mls/hr IV .Q0M PRN PRN Reason: hypotension or symptomatic Albumin Human (Albumin) 12.5 gm in 50 mls @ 60 mls/hr IV PRN PRN PRN Reason: Hypotension and/or symptomatic Insulin Human Lispro (Insulin Lispro 100 Unit/1 Ml) 0 unit SUBCUT WM&BEDTIME KIMI; Protocol Last Admin: 12/27/24 08:39 Dose: 8 unit Meropenem (Meropenem 500 Mg Sdv) 500 mg IVP Q12H KIMI; Protocol Last Admin: 12/27/24 08:39 Dose: 500 mg Ondansetron HCl (Ondansetron 2 Mg/Ml Sdv 2 Ml) 4 mg IVP Q6H PRN PRN Reason: NAUSEA AND VOMITING Oxycodone/Acetaminophen (Oxycodone-Apap 5-325 Mg Tablet) 1 tab PO Q6H PRN PRN Reason: MODERATE TO SEVERE PAIN Pantoprazole Sodium (Pantoprazole Dr 40 Mg Tablet) 40 mg PO DAILY KIMI Last Admin: 12/27/24 08:39 Dose: 40 mg Vancomycin HCl (Vancomycin 1,000 Mg Sdv (Pharmacy Mix)) 0 mg XX PRN PRN PRN Reason: Pharmacy to Dose Vitals/I&O/Wt Last Vital Signs Temp 98.1 F 12/27/24 00:00 Pulse 109 H 12/27/24 08:16 Resp 18 12/27/24 08:00 BP 121/66 12/27/24 06:00 Pulse Ox 93 12/27/24 08:00 O2 Del Method Nasal Cannula 12/27/24 08:00 O2 Flow Rate 3.5 12/27/24 08:00 FiO2 30 12/27/24 01:42 12/26/24 12/27/24 12/27/24 22:59 06:59 14:59 Intake Total 240 / 1240 250 / 250 Output Total 250 / 3750 300 / 4050 Balance -10 / -2510 -300 / -2810 250 / 250 Weight last 48 hrs Weight 98.093 kg Weight 97.5 kg Weight 101.1 kg Weight 100 kg Physical Exam Narrative: Obese lady sitting up comfortable using nasal cannula oxygen. HEENT normocephalic with manage. Neck is supple Lungs: Bilateral crackles, improving as per nurse. Heart irregular bowel sounds. Abdomen is soft nontender nondistended positive bowel sounds. Extremities 1+ edema. Neuro awake alert oriented x 3 Urinary Catheter Management: Lion: Cath Placed During This Visit: yes Reason for Continuing Indwelling Catheter: Accurate Measurement of Urinary Output in Critically Ill Patients Urinary Catheter Date of Insertion: 12/21/24 Urinary Catheter Time of Insertion: 09:58 Data 12/27/24 03:51 12/27/24 03:51 A&P Assessment and plan 1. Acute kidney injury superimposed on CKD: 79-year-old lady diabetes hypertension gout. Rheumatoid arthritis on infliximab and prednisone. Patient has chronic leukocytosis. Patient was admitted with acute on chronic renal failure and acute on chronic exacerbation of heart failure diastolic dysfunction. Patient has non-ST elevation GA also anemia. 1. CKD stage 4- baseline cr 1.8- 2mg/dl 2. PUSHPA-patient has 3+ proteinuria on urinalysis and also has liver cirrhosis. Serologies are pending. Serum immunofixation is normal Patient is breathing better. Will repeat ultrafiltration today for 2 hours and attempt to remove 2 L. 3 echocardiogram: LVEF 54%, grade 2 diastolic dysfunction, wall motion abnormality akinesis of the basal inferior wall, hypokinesis of the basal inferolateral wall. Mild mitral regurgitation, mild tricuspid regurgitation, mild pulmonary hypertension, dilated IVC. 4. Right upper lung irregular pulmonary nodule Subsolid nodule left upper lobe: Please ensure she has pulmonary follow-up 4. Anemia: Normal SPEP. Iron saturation of 20% ferritin of 797 Leukocytosis 5. Normal TSH Medications reviewed. The patient Reviewed. The patient was seen and examined using A/V equipment with the aid of a nurse. The patient consents to telehealth and to dialysis. Plan: Continue hemodialysis. PDMP PDMP Reviewed: Not Reviewed Attestations Medical Necessity Statement*: Shortness of breath acute kidney injury non-ST elevation GA acute on chronic renal failure shortness of breath Time Spent in Patient Care: Greater than 35 minutes (>than 50% of time spent in counselling and/or direct pt care on unit). Coding Level of Care Code Acute Code for [facility] Diagnoses Acute kidney injury superimposed on CKD N17.9; N18.9
--- NOTE | 2024-12-27 09:48 | PC.SOCIAL ---
IMM Update pg 2 of IMM Updated and reviewed w/ patient. Copy provided and copy dated, initialed and placed in chart.
--- NOTE | 2024-12-27 10:04 | P.PN_ITS ---
<Statement entered by Juan Daniel Carbajal MD - 12/27/24 19:16> Patient was evaluated and cared for in conjunction with an advanced practice practitioner. I personally saw the patient and reviewed the chart and all pertinent data. I discussed the patient in detail with the advanced practice practitioner. Please see their note for complete assessment and agreed upon plan of care for the patient. Subjective 2 Subjective: She is off BiPAP this morning at the time of exam, currently on nasal cannula at 3 L. Shortness of breath is improved. She still has abdominal distention, lower extremity edema is worse. She still has crackles in her bases. She had 3 L removed and dialysis yesterday, 3 L the day before that. She is making some urine, about 550 mL in the last 24 hours. Plan is to attempt to remove 2 L today with dialysis. Hemoglobin 8.1 today. She had a VQ scan this morning, low probability of PE. Vitals/I&O/Wt Last Vital Signs Temp 98.6 F 12/27/24 08:00 Pulse 113 H 12/27/24 09:00 Resp 19 H 12/27/24 09:00 BP 121/66 12/27/24 06:00 Pulse Ox 95 12/27/24 09:00 O2 Del Method Nasal Cannula 12/27/24 08:00 O2 Flow Rate 3.5 12/27/24 08:00 FiO2 30 12/27/24 01:42 12/26/24 12/27/24 12/27/24 22:59 06:59 14:59 Intake Total 240 / 1240 500 / 500 Output Total 250 / 4050 300 / 4050 Balance -10 / -2810 -300 / -2810 500 / 500 Weight last 48 hrs Weight 216 lb 4.122 oz Weight 214 lb 15.211 oz Weight 222 lb 14.197 oz Weight 220 lb 7.396 oz Physical Exam 2 Const: COMMON NORMALS: no acute distress and patient oriented x3 GENERAL APPEARANCE: cooperative and comfortable ORIENTATION/CONSCIOUSNESS: Yes awake, Yes oriented to person, Yes oriented to place and Yes oriented to time Chest: COMMONS NORMALS: normal inspection of the chest and normal palpation of entire chest wall CHEST: Yes Symmetrical chest wall rise Resp: COMMON NORMALS: normal respiratory effort and No retractions EFFORT & INSPECTION: Yes symmetric chest movement and Yes uses accessory muscles A USCULTATION: crackles (Bases) Laterality: bilateral and posterior Cardio: COMMON NORMALS: regular rhythm, S1 normal heart sound present, S2 normal heart sound present, No gallops present (Cardio), No clicks present (Cardio), No murmurs present (Cardio) and No rub (Cardio) RATE: tachycardic RHYTHM: regular rhythm HEART SOUNDS: S1 normal heart sound present and S2 normal heart sound present PERIPHERAL PULSES: radial pulses present Extremity: GENERAL: Yes edema (2+ pitting edema bilateral lower extremities below the knee) Neuro: COMMON NORMALS: patient oriented x3 and moves all extremities S ENSORIUM/ORIENTATION: Yes oriented to person, Yes oriented to place and Yes oriented to time Urinary Catheter Management: Lion: Cath Placed During This Visit: yes Reason for Continuing Indwelling Catheter: Accurate Measurement of Urinary Output in Critically Ill Patients Urinary Catheter Date of Insertion: 12/21/24 Urinary Catheter Time of Insertion: 09:58 Data 12/27/24 03:51 12/27/24 03:51 A&P Assessment and plan 1. Acute hypoxemic respiratory failure: 2. NSTEMI (non-ST elevated myocardial infarction): 3. Type 2 diabetes mellitus: 4. Chronic anemia: 5. CHF exacerbation: 6. Coronary artery disease: 7. Benign essential hypertension with target blood pressure below 140/90: Plan: Will plan for Lexiscan stress test when volume status is improved to evaluate for coronary ischemia. She has plans for dialysis today. PDMP PDMP Reviewed: Not Reviewed Attestations 2 Medical Necessity Statement*: CHF, ischemic workup Coding Level of Care Code Acute Code for [facility] Diagnoses Acute hypoxemic respiratory failure J96.01 NSTEMI (non-ST elevated myocardial infarction) I21.4 Type 2 diabetes mellitus E11.9 Chronic anemia D64.9 CHF exacerbation I50.9 Coronary artery disease I25.10 Benign essential hypertension with target blood pressure below 140/90 I10
--- NOTE | 2024-12-27 11:29 | P.PN_ITS ---
Subjective 2 Subjective: Seen this morning. She states she is feeling slightly better. Vitals/I&O/Wt Last Vital Signs Temp 98.6 F 12/27/24 08:00 Pulse 106 H 12/27/24 10:00 Resp 20 H 12/27/24 10:00 BP 121/66 12/27/24 06:00 Pulse Ox 94 12/27/24 10:00 O2 Del Method Nasal Cannula 12/27/24 08:00 O2 Flow Rate 3.5 12/27/24 08:00 FiO2 30 12/27/24 01:42 12/26/24 12/27/24 12/27/24 22:59 06:59 14:59 Intake Total 240 / 1240 500 / 500 Output Total 250 / 3750 300 / 4050 Balance -10 / -2510 -300 / -2810 500 / 500 Weight last 48 hrs Weight 98.093 kg Weight 97.5 kg Weight 101.1 kg Weight 100 kg Physical Exam 2 Const: COMMON NORMALS: no acute distress and patient oriented x3 Resp: COMMON NORMALS: clear to auscultation bilaterally AUSCULTATION: clear to auscultation bilaterally OTHER: clear to auscultation b/l , no wheezes or ronchi, currently getting dialysis Cardio: COMMON NORMALS: regular rate, regular rhythm, S1 normal heart sound present and S2 normal heart sound present RATE: regular rate RHYTHM: r egular rhythm HEART SOUNDS: S1 normal heart sound present and S2 normal heart sound present GI: COMMON NORMALS: Normal to inspection, nondistended, normoactive bowel sounds present and non-tender Extremity: COMMON NORMALS: no pedal edema NARRATIVE EXTREMITY EXAM: 2+ pitting edema Neuro: COMMON NORMALS: patient oriented x3, CN's II-XII intact bilaterally and moves all extremities Psych: COMMON NORMALS: mental status grossly normal Urinary Catheter Management: Lion: Cath Placed During This Visit: yes Reason for Continuing Indwelling Catheter: Accurate Measurement of Urinary Output in Critically Ill Patients Urinary Catheter Date of Insertion: 12/21/24 Urinary Catheter Time of Insertion: 09:58 Data 12/27/24 03:51 12/27/24 03:51 A&P Assessment and plan 1. Acute hypoxemic respiratory failure: 2. Anasarca: 3. Acute kidney injury superimposed on CKD: 4. High risk medication use: 5. Leukocytosis: 6. Seronegative rheumatoid arthritis: 7. CHF exacerbation: 8. Acute respiratory distress: 9. Pneumonia: 10. NSTEMI (non-ST elevated myocardial infarction): 11. Acute anemia: 12. Congestive heart failure: 13. Coronary artery disease: 14. Benign essential hypertension with target blood pressure below 140/90: 15. Increased anion gap metabolic acidosis: 16. Sepsis: 17. Goals of care, counseling/discussion: Plan: Acute hypoxic hypercarbic respiratory failure - Multifactorial - From systolic CHF exacerbation - From multifocal pneumonia -Acute respiratory distress CT chest CT/[place] [id number] IMPRESSION: 1. Small bilateral pleural effusions with atelectatic changes in the lung bases. 2. Multiple prominent mediastinal lymph nodes measuring up to 10 mm in short axis. 3. There is an irregular pulmonary nodule in the right upper lobe measuring 16 x 14 mm (series 5, image 18) and a subsolid nodule in the left upper lobe measuring up to 18 x 17 mm (series 5, image 24). While this may represent multifocal multi lobar pneumonia true pulmonary nodules can not be excluded and in the absence of a known primary malignancy the Fleischner -Immunocompromise state -BNP over 20,000 this morning Plan -Moved to ICU - Continue BiPAP therapy as needed during the day, scheduled during the night - Switch to Lasix drip, currently at 20 mg/hr, 1 dose metolazone -Monitor BMP every 4hours - Monitor urine output, monitor creatinine - Vancomycin - Cefepime broaden to meropenem -DuoNeb - Blood cultures, sputum culture - Monitor respiratory status closely - Full code - Heparin for DVT prophylaxis Multifocal pneumonia, as above Sepsis - Secondary to pneumonia Systolic CHF exacerbation - Cardiac echo ordered IVC The inferior vena cava is dilated measuring 2.1 cm with no inspiratory collapse consistent with increased right atrial pressure. CONCLUSIONS 1. Left ventricular segmental wall motion abnormality in the basal inferior and inferolateral wall segments with overall normal ejection fraction of 54%. 2. Mild mitral valve regurgitation 3. Stage II left ventricular diastolic dysfunction 4. Mild concentric left ventricular hypertrophy 5. Mild pulmonary hypertension NSTEMI - No chest pain complaints - Aspirin, statin - History of cardiac cath 03/2020 Diagnostic Findings * No significant disease noted in the Left Main, LAD, Circumflex, or RCA coronary arteries. * Mid Circumflex Coronary Artery: has lesion. * Coronary angiography shows right dominance. * The left main is a medium caliber vessel with minimal intimal irregularities. * The left anterior descending artery is a relatively small to medium caliber vessel with diffuse disease, lesions ranging anywhere from 30 to 50%. The distal artery is a small caliber vessel which wrap around the LV apex minimally. The artery gives off multiple diagonal branches. The second diagonal branch was found to have 40 to 50% diffuse narrowing in the proximal segment. The other diagonal branches were found to have mild diffuse disease. * The circumflex artery is a medium to large caliber vessel which was found to have around 40% proximal segmental narrowing. The first obtuse marginal branch is a relatively small caliber vessel with 50 to 60% diffuse narrowing. Right after the second obtuse marginal branch, the artery appears to have around 50 to 60% tubular narrowing with some haziness. No other significant stenotic lesions were seen. * The right coronary artery is a medium caliber dominant vessel which also was found to have mild to moderate diffuse disease in the proximal and distal segment. The lesions were ranging anywhere from 30 to 50%. The PDA branch was found to have a proximal around 40% narrowing involving the ostium. No other significant stenotic lesions were noted. - Cardiac echo as above - Cardiology consulted Acute kidney injury -Creatinine 3.9 -Component of sepsis -Urine output 3 L -With hyperkalemia, hyponatremia, metabolic acidosis - Monitor urine output, monitor creatinine - Nephrology consulted - Patient declines dialysis Increased anion gap and metabolic acidosis - From acute renal failure, sepsis Liver cirrhosis? Etiology unclear Type 2 diabetes mellitus, low-dose sliding scale Acute on chronic anemia, monitor - Hemoglobin 6.8, will transfuse 1 unit PRBC DVT prophylaxis: Heparin 5000 subcutaneously every 12 hours, on hold due to anemia, SCDs Full code Continue IV antibiotics, Lasix drip, transfuse 1 unit. 12/25/2024 Consulted neurosurgery for temporary dialysis catheter placement. Patient will require dialysis today. Nephrology following and consulted. Hemoglobin 7.9 this morning most likely secondary to iron deficiency anemia secondary to CKD. Patient is significantly fluid overloaded. Requires dialysis for fluid removal. proBNP greater than 70,000. Procalcitonin 1.56. CT abdomen pelvis on 12/20 showed multifocal pneumonia. Also has irregular pulmonary nodule in right upper lobe measuring 16 x 14 mm. Patient does have cirrhotic liver. Her shortness of breath is multifactorial secondary to renal failure, CHF, multifocal pneumonia. Eventually we need interventional pulmonary consult for lymph node biopsy if patient agreeable. She is on infliximab every 30 days. Continue patient on Vanco and meropenem. 12/26/2024 Patient undergoing dialysis at this time. She does have evidence of liver cirrhosis on her CT scan. Unclear if patient was aware of this diagnosis prior. IVC dilated 2.1 cm on echo. Does have wall motion abnormalities in basal inferior and inferolateral wall segments. EF 54%. Cardiology consulted. Plan for stress test in AM. After first session of dialysis 3 L was removed. Subjectively shortness of breath is slightly better. Undergoing second session of dialysis today. Will check venous Dopplers bilateral lower extremities ? Due to elevated creatinine will check VQ scan and check D-dimer. ? Will do abdominal ultrasound to assess for ascites. Patient may require paracentesis if ascites present. This may be causing restrictive phenomenon for lungs contributing to her shortness of breath. ? She does have multifocal pneumonia for which she is on bank and meropenem at this time. ? I will discuss with pulmonology as well however I have been told there is no one on-call today. ? Will continue to monitor patient and complete above workup. ? I discussed with patient briefly this morning regarding her lung nodule however she stated that she is 79 years old and probably will not undergo further workup for that at this time however would like to discuss with me at a later time. ? Hemoglobin 7.7 this morning. ? Check iron panel, ferritin, TIBC percent saturation ? White count 19,000 today. Has been persistently elevated in last few visits. Unclear if this is secondary to infection versus possible underlying leukemia. Will check lymphoma leukemia profile and check peripheral smear. ? I will complete antibiotics for 10 days total to cover for her multifocal pneumonia ? Continue to monitor in ICU. ? Appreciate cardiology and nephrology recommendations 12/27/2024 Had a long discussion with patient regarding goals of care today. She states she does not want a feeding tube. Ideally does not want long-term dialysis however she may consider it. She states that she has a huge transportation problem as she lives in [place]. She is worried how will she get to dialysis if that is what she ends up needing. Discussed with her the potential of a kidney biopsy, lung biopsy for nodule going forward and had a discussion regarding how aggressive she wants to be with her care. She states she will not have any kind of interventional procedures for example biopsy. She may be agreeable to a cardiac stress test however she will think about it. She would like to be DNR/DNI. She states if anything happens let me go. She states she has a power of claims attorney and her nephew's name. Her niece has had a stroke and therefore patient states she is pretty much on her own. D-dimer 4.75. VQ scan ability for PE. Hemoglobin 8.1 today. Nephrology following. Check iron studies. subjectively feeling better And iron profile C3-C4 CH 50 glomerular basement membrane antibody leukemia lymphoma profile, peripheral blood smear ANCA pending EPO ordered today. Last day of antibiotic December 28. Nephrology following appreciate recommendations PDMP PDMP Reviewed: Not Reviewed Attestations 2 Medical Necessity Statement*: continued hospitalization required due to multiple medical issues Diagnoses Acute hypoxemic respiratory failure J96.01 Anasarca R60.1 Acute kidney injury superimposed on CKD N17.9; N18.9 High risk medication use Z79.899 Leukocytosis D72.829 Seronegative rheumatoid arthritis M06.00 CHF exacerbation I50.9 Acute respiratory distress R06.03 Pneumonia J18.9 NSTEMI (non-ST elevated myocardial infarction) I21.4 Acute anemia D64.9 Congestive heart failure I50.9 Coronary artery disease I25.10 Benign essential hypertension with target blood pressure below 140/90 I10 Increased anion gap metabolic acidosis E87.29 Sepsis A41.9 Goals of care, counseling/discussion Z71.89
[2024-12-27] MEDS: heparin, porcine 1,000 unit/mL INJ 10 mL 10000 UNIT HE (15:23)
--- NOTE | 2024-12-27 15:26 | NM_ITS ---
WS: [id number] NUCLEAR MEDICINE VENTILATION/PERFUSION LUNG SCAN HISTORY: r/o PE COMPARISON: None available. TECHNIQUE: Ventilation: 32.9 mCi of Technetium 99 DTPA aerosol inhaled. Perfusion: 5.3 mCi of technetium 99m MAA IV. During ventilation there is deposition of radionuclide centrally. Otherwise heterogeneous distribution of the radionuclide. Perfusion is much improved as compared to ventilation. There are no unmatched defects. Cardiac shadow is identified. No wedge-shaped areas of decreased uptake. NM/NM pul vent and perfus* [id number] IMPRESSION: Low probability of pulmonary embolism.
[2024-12-27] MEDS: heparin, porcine 1,000 unit/mL INJ 10 mL 10000 UNIT INTRACATH (16:26)
--- NOTE | 2024-12-27 18:25 | PC.NURSE ---
Shift Summary: Patient up to the chair majority of shift. Patient maintained o2 saturations on nasal cannula. Shortness of breath notably better and not requiring bipap at this time.
--- NOTE | 2024-12-27 20:50 | ECG_ITS ---
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 Measurements Intervals [place] Rate: 112 P: 77 MS: 191 QRS: 62 QRSD: 110 T: 96 QT: 325 QTc: 444 Interpretive Statements SINUS TACHYCARDIA WITH OCCASIONAL SUPRAVENTRICULAR PREMATURE COMPLEXES NONSPECIFIC ST & T-WAVE ABNORMALITY Compared to ECG 12/20/2024 22:59:47 Sinus rhythm no longer present Intraventricular conduction delay no longer present T-wave abnormality still present Electronically Signed On 12-28-2024 10:23:16 CDT by Karlo Hughes M.D. [email or web address]
[2024-12-28] VITALS (29 sets, daily range): BP systolic 119–165; BP diastolic 62–92; PULSE 68–97; RESP 16–28; TEMP 36.6–37.3; O2SAT 93–99
[2024-12-28 05:31] LABS: Hematocrit 26.5 % (36-47); Hemoglobin 8.20 g/dL (11.27-16.99); Mean Corpuscular HGB Conc 30.9 g/dL (30-55); Mean Corpuscular Hemoglobin 27.7 pg (27-33); Mean Corpuscular Volume 89.5 fl (85-98); Nucleated Red Blood Cells % 0 %; Platelet Count 297 10^3/cmm (157-399); Red Blood Count 2.96 10^6/uL (3.85-5.65); White Blood Count 20.32 10^3/uL (3.29-11.43)
[2024-12-28 05:55] LABS: Alanine Aminotransferase 9 U/L (0-33); Albumin Level 3.1 g/dL (3.5-5.2); Alkaline Phosphatase 92 U/L (35-105); Anion Gap 20.4 (5-19); Aspartate Amino Transferase 11 U/L (0-32); Calcium 9.2 mg/dL (8.5-10.5); Carbon Dioxide 23 mmol/L (22-29); Chloride 92 mmol/L (98-107); Creatinine Clr Calc Pharmacy 13.1859; Globulin 3.6 g/dL (1.3-4.6); Glucose 172 mg/dL (65-115); Magnesium 1.8 mg/dL (1.7-2.3); Osmolality Calculated 302 mOsm/kg (285-295); Potassium 4.4 mmol/L (3.5-5.1); Sodium 131 mmol/L (136-145); Total Protein 6.7 g/dL (6.6-8.7)
[2024-12-28 06:07] LABS: Blood Urea Nitrogen 84 mg/dL (8-23)
[2024-12-28] MEDS: ATORVASTATIN 10 MG TABLET 20 MG PO (08:38)
--- NOTE | 2024-12-28 08:55 | P.PN_ITS ---
<Statement entered by Juan Daniel Carbajal MD - 12/28/24 16:38> Patient was evaluated and cared for in conjunction with an advanced practice practitioner. I personally saw the patient and reviewed the chart and all pertinent data. I discussed the patient in detail with the advanced practice practitioner. Please see their note for complete assessment and agreed upon plan of care for the patient. Subjective 2 Subjective: She looks much more comfortable this morning. Shortness of breath is improved. Still has significant lower extremity edema. She slept well overnight, is able to lay the head of the bed down flatter. Vitals/I&O/Wt Last Vital Signs Temp 98.7 F 12/28/24 10:00 Pulse 82 12/28/24 14:00 Resp 28 H 12/28/24 14:00 BP 132/70 12/28/24 14:00 Pulse Ox 95 12/28/24 14:00 O2 Del Method Nasal Cannula 12/28/24 14:00 O2 Flow Rate 1 12/28/24 14:00 FiO2 30 12/28/24 06:18 12/28/24 12/28/24 12/28/24 06:59 14:59 22:59 Intake Total 400 / 400 Output Total 450 / 3450 Balance -450 / -1425 400 / 400 Weight last 48 hrs Weight 214 lb 15.211 oz Weight 211 lb 10.3 oz Weight 216 lb 4.122 oz Physical Exam 2 Const: COMMON NORMALS: no acute distress and patient oriented x3 GENERAL APPEARANCE: cooperative and comfortable ORIENTATION/CONSCIOUSNESS: Yes awake, Yes oriented to person, Yes oriented to place and Yes oriented to time Chest: COMMONS NORMALS: normal inspection of the chest and normal palpation of entire chest wall CHEST: Yes Symmetrical chest wall rise Resp: COMMON NORMALS: normal respiratory effort, No retractions and No use of accessory muscles EFFORT & INSPECTION: Yes symmetric chest movement A USCULTATION: crackles Laterality: bilateral and posterior OTHER: Better air movement in the bilateral bases Cardio: COMMON NORMALS: regular rate, regular rhythm, S1 normal heart sound present, S2 normal heart sound present, No gallops present (Cardio), No clicks present (Cardio), No murmurs present (Cardio) and No rub (Cardio) RATE: r egular rate RHYTHM: regular rhythm HEART SOUNDS: S1 normal heart sound present and S2 normal heart sound present PERIPHERAL PULSES: radial pulses present Extremity: GENERAL: Yes edema (2+ pitting edema bilateral lower extremities below the knee) Neuro: COMMON NORMALS: patient oriented x3 and moves all extremities S ENSORIUM/ORIENTATION: Yes oriented to person, Yes oriented to place and Yes oriented to time Urinary Catheter Management: Lion: Cath Placed During This Visit: yes Reason for Continuing Indwelling Catheter: Accurate Measurement of Urinary Output in Critically Ill Patients Urinary Catheter Date of Insertion: 12/21/24 Urinary Catheter Time of Insertion: 09:58 Data 12/28/24 04:58 12/28/24 04:58 A&P Assessment and plan 1. NSTEMI (non-ST elevated myocardial infarction): 2. CHF exacerbation: 3. Atherosclerotic heart disease of [place] coronary artery without angina pectoris: 4. Benign essential hypertension with target blood pressure below 140/90: 5. Type 2 diabetes mellitus: 6. Acute kidney injury superimposed on CKD: 7. Chronic anemia: Plan: Will plan on Lexiscan stress test tomorrow morning. N.p.o. after midnight tonight for that test. No dialysis planned for today. Medications per nephrology. Hemoglobin 8.2. PDMP PDMP Reviewed: Not Reviewed Attestations 2 Medical Necessity Statement*: Ischemic workup Coding Level of Care Code Acute Code for [facility] Diagnoses NSTEMI (non-ST elevated myocardial infarction) I21.4 CHF exacerbation I50.9 Atherosclerotic heart disease of [place] coronary artery without angina pectoris I25.10 Benign essential hypertension with target blood pressure below 140/90 I10 Type 2 diabetes mellitus E11.9 Acute kidney injury superimposed on CKD N17.9; N18.9 Chronic anemia D64.9
--- NOTE | 2024-12-28 09:42 | P.PN_ITS ---
Subjective 2 Subjective: The patient was seen and examined. Patient states that she feels better with dialysis. However the patient is very concerned about needing long-term dialysis. She states she will be able to get to the center or be able to afford transportation. She denies nausea or vomiting. She is urinating and would like to see if she can respond to medications. Medications: Reviewed: Yes Medication Review Details: Current Medications Acetaminophen (Acetaminophen 325 Mg Tablet) 650 mg PO Q6H PRN PRN Reason: Mild/Mod Pain Or Temp >/= 101 Albuterol/Ipratropium (Ipratropium-Albuterol 3 Ml Neb) 3 ml INHALATION Q6H.RESP KIMI Last Admin: 12/28/24 08:29 Dose: 3 ml Allopurinol (Allopurinol 100 Mg Tablet) 100 mg PO BID KIMI Last Admin: 12/28/24 08:38 Dose: 100 mg Aspirin (Aspirin 81 Mg Ec Tablet) 81 mg PO DAILY PRN PRN Reason: UNKNOWN Atorvastatin Calcium (Atorvastatin 10 Mg Tablet) 20 mg PO DAILY KIMI Last Admin: 12/28/24 08:38 Dose: 20 mg Budesonide (Budesonide 0.5 Mg/2 Ml Neb) 0.5 mg INHALATION BID.RESPIRATORY KIMI Last Admin: 12/28/24 08:30 Dose: 0.5 mg Duloxetine HCl (Duloxetine 60 Mg Capsule) 60 mg PO DAILY KIMI Last Admin: 12/28/24 08:39 Dose: 60 mg Epoetin Jovi-epbx (Epoetin Jovi-Epbx 10,000 Unit/Ml Sdv (Esrd)) 10,000 unit SUBCUT QMWF KIMI Last Admin: 12/27/24 14:37 Dose: 10,000 unit Furosemide (Furosemide 10 Mg/Ml Sdv 10ml) 60 mg IVP Q12H KIMI Gabapentin (Gabapentin 300 Mg Capsule) 300 mg PO TID KIMI Last Admin: 12/28/24 08:39 Dose: 300 mg Glucagon (Glucagon 1 Mg/Ml Kit 1 Ml) 1 mg IM ONCE PRN; Protocol PRN Reason: Adult Acute Hypoglycemia Nursing Prot. Heparin Sodium (Porcine) (Heparin 5,000 Unit/Ml Inj 1 Ml) 5,000 unit SUBCUT Q12H KIMI On Hold: 12/24/24 07:54 Last Admin: 12/23/24 23:01 Dose: 5,000 unit Dextrose (D5w) 500 mls @ 0 mls/hr IV ONCE PRN; Protocol PRN Reason: Adult Acute Hypoglycemia Prot Dextrose (D10w) 125 mls @ 750 mls/hr IV PRN PRN; Protocol PRN Reason: Adult Acute Hypoglycemia Nursing Protocol Dextrose (D10w) 250 mls @ 1,000 mls/hr IV PRN PRN; Protocol PRN Reason: Adult Acute Hypoglycemia Nursing Protocol Sodium Chloride (Sodium Chloride 0.9%) 1,000 mls @ 0 mls/hr IV .Q0M PRN PRN Reason: hypotension or symptomatic Albumin Human (Albumin) 12.5 gm in 50 mls @ 60 mls/hr IV PRN PRN PRN Reason: Hypotension and/or symptomatic Insulin Human Lispro (Insulin Lispro 100 Unit/1 Ml) 0 unit SUBCUT WM&BEDTIME KIMI; Protocol Last Admin: 12/28/24 08:38 Dose: 6 unit Meropenem (Meropenem 500 Mg Sdv) 500 mg IVP Q12H KIMI; Protocol Last Admin: 12/28/24 08:37 Dose: 500 mg Metoprolol Tartrate (Metoprolol Tartrate 25 Mg Tablet) 25 mg PO BID@0900,2100 [facility] Last Admin: 12/28/24 08:41 Dose: 25 mg Ondansetron HCl (Ondansetron 2 Mg/Ml Sdv 2 Ml) 4 mg IVP Q6H PRN PRN Reason: NAUSEA AND VOMITING Pantoprazole Sodium (Pantoprazole Dr 40 Mg Tablet) 40 mg PO DAILY [facility] Last Admin: 12/28/24 08:38 Dose: 40 mg Vancomycin HCl (Vancomycin 1,000 Mg Sdv (Pharmacy Mix)) 0 mg XX PRN PRN PRN Reason: Pharmacy to Dose Vitals/I&O/Wt Last Vital Signs Temp 99.1 F 12/28/24 04:00 Pulse 88 12/28/24 08:00 Resp 16 12/28/24 08:00 BP 121/65 12/28/24 08:00 Pulse Ox 98 12/28/24 08:00 O2 Del Method Nasal Cannula 12/28/24 08:00 O2 Flow Rate 2 12/28/24 08:00 FiO2 30 12/28/24 06:18 12/27/24 12/28/24 12/28/24 22:59 06:59 14:59 Intake Total / 2025 Output Total 3000 / 3000 450 / 3450 Balance -2150 / -975 -450 / -1425 Weight last 48 hrs Weight 97.5 kg Weight 96 kg Weight 98.093 kg Weight 97.5 kg Physical Exam 2 Narrative: Obese lady sitting up comfortable using nasal cannula oxygen. HEENT normocephalic with manage. Neck is supple Lungs: Bilateral crackles, improving as per nurse. Heart irregular, systolic murmur. Abdomen is soft nontender nondistended positive bowel sounds. Extremities 1-2+ edema. Neuro awake alert oriented x 3 Urinary Catheter Management: Lion: Cath Placed During This Visit: yes Reason for Continuing Indwelling Catheter: Accurate Measurement of Urinary Output in Critically Ill Patients Urinary Catheter Date of Insertion: 12/21/24 Urinary Catheter Time of Insertion: 09:58 Data 12/28/24 04:58 12/28/24 04:58 A&P Assessment and plan 1. Acute kidney injury superimposed on CKD: 79-year-old lady diabetes hypertension gout. Rheumatoid arthritis on infliximab and prednisone. Patient has chronic leukocytosis. Patient was admitted with acute on chronic renal failure and acute on chronic exacerbation of heart failure diastolic dysfunction. Patient has non-ST elevation [place] also anemia. 1. CKD stage 4- baseline cr 1.8- 2mg/dl 2. PUSHPA-patient has 3+ proteinuria on urinalysis and also has liver cirrhosis. Serologies are pending. Serum immunofixation is normal The patient has low C4 normal C3 - echocardiogram: LVEF 54%, grade 2 diastolic dysfunction, wall motion abnormality akinesis of the basal inferior wall, hypokinesis of the basal inferolateral wall. Mild mitral regurgitation, mild tricuspid regurgitation, mild pulmonary hypertension, dilated IVC. We are assuming this is cardiorenal syndrome however I am not certain. Could be that she has a new liver pathology to. Will monitor with diuretics today but explained to her that there is a significant chance she will need to stay on dialysis. The patient not sure if she wants to do that 3. Right upper lung irregular pulmonary nodule Subsolid nodule left upper lobe: Please ensure she has pulmonary follow-up 4. Anemia: Normal SPEP. Iron saturation of 20% ferritin of 797 Leukocytosis 5. Normal TSH Medications reviewed. Restarted furosemide today. The patient Reviewed. The patient was seen and examined using A/V equipment with the aid of a nurse. The patient consents to telehealth and to dialysis. Plan: Status post 3 days of hemodialysis/ultrafiltration. Will monitor with diuretics. PDMP PDMP Reviewed: Not Reviewed Attestations 2 Medical Necessity Statement*: Acute kidney injury, Anasarca, cirrhosis, diastolic dysfunction Time Spent in Patient Care: 16 - 35 minutes (>than 50% of time sp ent in counselling and/or direct pt care on unit) . Coding Level of Care Code Acute Code for [facility]wd Diagnoses Acute kidney injury superimposed on CKD N17.9; N18.9
[2024-12-28] MEDS: FUROsemide 10 mg/mL SDV 10mL 60 MG IVP ×2 (10:25→21:19)
--- NOTE | 2024-12-28 12:09 | P.PN_ITS ---
Subjective 2 Subjective: seen this morning hb 8.20 Vitals/I&O/Wt Last Vital Signs Temp 98.7 F 12/28/24 10:00 Pulse 88 12/28/24 10:00 Resp 22 H 12/28/24 10:00 BP 156/81 12/28/24 10:00 Pulse Ox 95 12/28/24 10:00 O2 Del Method Nasal Cannula 12/28/24 10:00 O2 Flow Rate 2 12/28/24 10:00 FiO2 30 12/28/24 06:18 12/27/24 12/28/24 12/28/24 22:59 06:59 14:59 Intake Total 850 / 5 Output Total 3000 / 3000 450 / 3450 Balance -2150 / -975 -450 / -1425 Weight last 48 hrs Weight 97.5 kg Weight 96 kg Weight 98.093 kg Weight 97.5 kg Physical Exam 2 Const: COMMON NORMALS: no acute distress and patient oriented x3 Resp: COMMON NORMALS: clear to auscultation bilaterally AUSCULTATION: clear to auscultation bilaterally OTHER: clear to auscultation b/l , no wheezes or ronchi, currently getting dialysis Cardio: COMMON NORMALS: regular rate, regular rhythm, S1 normal heart sound present and S2 normal heart sound present RATE: regular rate RHYTHM: r egular rhythm HEART SOUNDS: S1 normal heart sound present and S2 normal heart sound present GI: COMMON NORMALS: Normal to inspection, nondistended, normoactive bowel sounds present and non-tender Extremity: COMMON NORMALS: no pedal edema NARRATIVE EXTREMITY EXAM: 2+ pitting edema Neuro: COMMON NORMALS: patient oriented x3, CN's II-XII intact bilaterally and moves all extremities Psych: COMMON NORMALS: mental status grossly normal Urinary Catheter Management: Lion: Cath Placed During This Visit: yes Reason for Continuing Indwelling Catheter: Accurate Measurement of Urinary Output in Critically Ill Patients Urinary Catheter Date of Insertion: 12/21/24 Urinary Catheter Time of Insertion: 09:58 Data 12/28/24 04:58 12/28/24 04:58 A&P Assessment and plan 1. Acute hypoxemic respiratory failure: 2. Anasarca: 3. Acute kidney injury superimposed on CKD: 4. High risk medication use: 5. Leukocytosis: 6. Seronegative rheumatoid arthritis: 7. CHF exacerbation: 8. Acute respiratory distress: 9. Pneumonia: 10. NSTEMI (non-ST elevated myocardial infarction): 11. Acute anemia: 12. Congestive heart failure: 13. Coronary artery disease: 14. Benign essential hypertension with target blood pressure below 140/90: 15. Increased anion gap metabolic acidosis: 16. Sepsis: 17. Goals of care, counseling/discussion: Plan: Acute hypoxic hypercarbic respiratory failure - Multifactorial - From systolic CHF exacerbation - From multifocal pneumonia -Acute respiratory distress CT chest CT/[place] [id number] IMPRESSION: 1. Small bilateral pleural effusions with atelectatic changes in the lung bases. 2. Multiple prominent mediastinal lymph nodes measuring up to 10 mm in short axis. 3. There is an irregular pulmonary nodule in the right upper lobe measuring 16 x 14 mm (series 5, image 18) and a subsolid nodule in the left upper lobe measuring up to 18 x 17 mm (series 5, image 24). While this may represent multifocal multi lobar pneumonia true pulmonary nodules can not be excluded and in the absence of a known primary malignancy the Fleischner -Immunocompromise state -BNP over 20,000 this morning Plan -Moved to ICU - Continue BiPAP therapy as needed during the day, scheduled during the night - Switch to Lasix drip, currently at 20 mg/hr, 1 dose metolazone -Monitor BMP every 4hours - Monitor urine output, monitor creatinine - Vancomycin - Cefepime broaden to meropenem -DuoNeb - Blood cultures, sputum culture - Monitor respiratory status closely - Full code - Heparin for DVT prophylaxis Multifocal pneumonia, as above Sepsis - Secondary to pneumonia Systolic CHF exacerbation - Cardiac echo ordered IVC The inferior vena cava is dilated measuring 2.1 cm with no inspiratory collapse consistent with increased right atrial pressure. CONCLUSIONS 1. Left ventricular segmental wall motion abnormality in the basal inferior and inferolateral wall segments with overall normal ejection fraction of 54%. 2. Mild mitral valve regurgitation 3. Stage II left ventricular diastolic dysfunction 4. Mild concentric left ventricular hypertrophy 5. Mild pulmonary hypertension NSTEMI - No chest pain complaints - Aspirin, statin - History of cardiac cath 03/2020 Diagnostic Findings * No significant disease noted in the Left Main, LAD, Circumflex, or RCA coronary arteries. * Mid Circumflex Coronary Artery: has lesion. * Coronary angiography shows right dominance. * The left main is a medium caliber vessel with minimal intimal irregularities. * The left anterior descending artery is a relatively small to medium caliber vessel with diffuse disease, lesions ranging anywhere from 30 to 50%. The distal artery is a small caliber vessel which wrap around the LV apex minimally. The artery gives off multiple diagonal branches. The second diagonal branch was found to have 40 to 50% diffuse narrowing in the proximal segment. The other diagonal branches were found to have mild diffuse disease. * The circumflex artery is a medium to large caliber vessel which was found to have around 40% proximal segmental narrowing. The first obtuse marginal branch is a relatively small caliber vessel with 50 to 60% diffuse narrowing. Right after the second obtuse marginal branch, the artery appears to have around 50 to 60% tubular narrowing with some haziness. No other significant stenotic lesions were seen. * The right coronary artery is a medium caliber dominant vessel which also was found to have mild to moderate diffuse disease in the proximal and distal segment. The lesions were ranging anywhere from 30 to 50%. The PDA branch was found to have a proximal around 40% narrowing involving the ostium. No other significant stenotic lesions were noted. - Cardiac echo as above - Cardiology consulted Acute kidney injury -Creatinine 3.9 -Component of sepsis -Urine output 3 L -With hyperkalemia, hyponatremia, metabolic acidosis - Monitor urine output, monitor creatinine - Nephrology consulted - Patient declines dialysis Increased anion gap and metabolic acidosis - From acute renal failure, sepsis Liver cirrhosis? Etiology unclear Type 2 diabetes mellitus, low-dose sliding scale Acute on chronic anemia, monitor - Hemoglobin 6.8, will transfuse 1 unit PRBC DVT prophylaxis: Heparin 5000 subcutaneously every 12 hours, on hold due to anemia, SCDs Full code Continue IV antibiotics, Lasix drip, transfuse 1 unit. 12/25/2024 Consulted neurosurgery for temporary dialysis catheter placement. Patient will require dialysis today. Nephrology following and consulted. Hemoglobin 7.9 this morning most likely secondary to iron deficiency anemia secondary to CKD. Patient is significantly fluid overloaded. Requires dialysis for fluid removal. proBNP greater than 70,000. Procalcitonin 1.56. CT abdomen pelvis on 12/20 showed multifocal pneumonia. Also has irregular pulmonary nodule in right upper lobe measuring 16 x 14 mm. Patient does have cirrhotic liver. Her shortness of breath is multifactorial secondary to renal failure, CHF, multifocal pneumonia. Eventually we need interventional pulmonary consult for lymph node biopsy if patient agreeable. She is on infliximab every 30 days. Continue patient on Vanco and meropenem. 12/26/2024 Patient undergoing dialysis at this time. She does have evidence of liver cirrhosis on her CT scan. Unclear if patient was aware of this diagnosis prior. IVC dilated 2.1 cm on echo. Does have wall motion abnormalities in basal inferior and inferolateral wall segments. EF 54%. Cardiology consulted. Plan for stress test in AM. After first session of dialysis 3 L was removed. Subjectively shortness of breath is slightly better. Undergoing second session of dialysis today. Will check venous Dopplers bilateral lower extremities ? Due to elevated creatinine will check VQ scan and check D-dimer. ? Will do abdominal ultrasound to assess for ascites. Patient may require paracentesis if ascites present. This may be causing restrictive phenomenon for lungs contributing to her shortness of breath. ? She does have multifocal pneumonia for which she is on bank and meropenem at this time. ? I will discuss with pulmonology as well however I have been told there is no one on-call today. ? Will continue to monitor patient and complete above workup. ? I discussed with patient briefly this morning regarding her lung nodule however she stated that she is 79 years old and probably will not undergo further workup for that at this time however would like to discuss with me at a later time. ? Hemoglobin 7.7 this morning. ? Check iron panel, ferritin, TIBC percent saturation ? White count 19,000 today. Has been persistently elevated in last few visits. Unclear if this is secondary to infection versus possible underlying leukemia. Will check lymphoma leukemia profile and check peripheral smear. ? I will complete antibiotics for 10 days total to cover for her multifocal pneumonia ? Continue to monitor in ICU. ? Appreciate cardiology and nephrology recommendations 12/27/2024 Had a long discussion with patient regarding goals of care today. She states she does not want a feeding tube. Ideally does not want long-term dialysis however she may consider it. She states that she has a huge transportation problem as she lives in [place]. She is worried how will she get to dialysis if that is what she ends up needing. Discussed with her the potential of a kidney biopsy, lung biopsy for nodule going forward and had a discussion regarding how aggressive she wants to be with her care. She states she will not have any kind of interventional procedures for example biopsy. She may be agreeable to a cardiac stress test however she will think about it. She would like to be DNR/DNI. She states if anything happens let me go. She states she has a power of disability attorney and her nephew's name. Her niece has had a stroke and therefore patient states she is pretty much on her own. D-dimer 4.75. VQ scan ability for PE. Hemoglobin 8.1 today. Nephrology following. Check iron studies. subjectively feeling better And iron profile C3-C4 CH 50 glomerular basement membrane antibody leukemia lymphoma profile, peripheral blood smear ANCA pending EPO ordered today. Last day of antibiotic December 28. Nephrology following appreciate recommendations 12/28/2024 seen today hb 8.20 this am plan for holding dialysis today He is unsure if she wants to do permanent dialysis or not. Nephrology and I both had a long discussion with her. We will discuss with geriatric social work professor regarding transportation options for the patient. She may require rehab at discharge. We will move to cardiac stepdown unit today. Continue to monitor kidney function. Heart rate is better controlled at this time. Cardiology following PDMP PDMP Reviewed: Not Reviewed Attestations 2 Medical Necessity Statement*: continued hospitalization required due to multiple medical issues Diagnoses Acute hypoxemic respiratory failure J96.01 Anasarca R60.1 Acute kidney injury superimposed on CKD N17.9; N18.9 High risk medication use Z79.899 Leukocytosis D72.829 Seronegative rheumatoid arthritis M06.00 CHF exacerbation I50.9 Acute respiratory distress R06.03 Pneumonia J18.9 NSTEMI (non-ST elevated myocardial infarction) I21.4 Acute anemia D64.9 Congestive heart failure I50.9 Coronary artery disease I25.10 Benign essential hypertension with target blood pressure below 140/90 I10 Increased anion gap metabolic acidosis E87.29 Sepsis A41.9 Goals of care, counseling/discussion Z71.89
--- NOTE | 2024-12-28 13:28 | ECG_ITS ---
[facility]: 2024[facility]29 Pat Name: Adina Gracia Department: Room: [facility] Gender: Female [employer]: : [id number] Requested By: Elisabeth Alanis Order Number: [id number] Alessia MD: Juan Daniel Carbajal M.D. Interpretive Statements LEXISCAN SESTAMIBI STRESS TEST Procedure: At the baseline, the blood pressure was 130/72 mmHg with a heart rate of 81 bpm. The electrocardiogram showed normal sinus rhythm, normal axis with poor R wave progression and minor nonspecific ST-T wave abnormality. The Lexiscan was infused over a period of 20 seconds. A total of 0.4 mg of Lexiscan was infused. The stress phase was continued for a total of 5 minutes. Heart rate was at the end of stress phase was 85 bpm and a blood pressure of 133/71 mmHg. The EKG at the peak infusion revealed normal sinus rhythm with no significant ST-T wave changes. Sestamibi was injected 20 seconds after the Lexiscan infusion. Blood pressure at the end of recovery phase was 137/68 mmHg with a heart rate of 87 bpm. Conclusion: 1. Normal EKG response to Lexiscan infusion 2. No Lexiscan induced chest pain or cardiac arrhythmia. 3. Normal blood pressure and heart rate response. 4. Nuclear myocardial perfusion scan pending; see separate report. Electronically Signed On 12-31-2024 11:09:41 CDT by Juan Daniel Carbajal M.D. [email or web address]
[2024-12-28 13:45] LABS: COMPLEMENT COMPONENT C3C 126 mg/dL (83-193); COMPLEMENT COMPONENT C4C 8 mg/dL (15-57)
[2024-12-28 14:03] LABS: COMPLEMENT, TOTAL (CH50) 52 U/mL (31-60)
[2024-12-29] VITALS (31 sets, daily range): BP systolic 121–159; BP diastolic 59–97; PULSE 76–88; RESP 16–30; TEMP 36.4–36.8; O2SAT 88–99
[2024-12-29 02:59] LABS: CENTROMERE B ANTIBODY <1.0 NEG AI (<1.0 NEG); JO-1 ANTIBODY <1.0 NEG AI (<1.0 NEG); RNP ANTIBODY <1.0 NEG AI (<1.0 NEG); SCL-70 ANTIBODY <1.0 NEG AI (<1.0 NEG); SS-B <1.0 NEG AI (<1.0 NEG)
[2024-12-29 05:26] LABS: Hematocrit 28.7 % (36-47); Hemoglobin 8.80 g/dL (11.27-16.99); Mean Corpuscular HGB Conc 30.7 g/dL (30-55); Mean Corpuscular Hemoglobin 27.8 pg (27-33); Mean Corpuscular Volume 90.8 fl (85-98); Nucleated Red Blood Cells % 0 %; Platelet Count 314 10^3/cmm (157-399); Red Blood Count 3.16 10^6/uL (3.85-5.65); White Blood Count 23.24 10^3/uL (3.29-11.43)
[2024-12-29 05:43] LABS: Alanine Aminotransferase 12 U/L (0-33); Albumin Level 2.9 g/dL (3.5-5.2); Alkaline Phosphatase 94 U/L (35-105); Anion Gap 24.1 (5-19); Aspartate Amino Transferase 17 U/L (0-32); Calcium 9.2 mg/dL (8.5-10.5); Carbon Dioxide 22 mmol/L (22-29); Chloride 87 mmol/L (98-107); Creatinine Clr Calc Pharmacy 10.8021; Globulin 3.9 g/dL (1.3-4.6); Glucose 132 mg/dL (65-115); Magnesium 1.9 mg/dL (1.7-2.3); Osmolality Calculated 300 mOsm/kg (285-295); Potassium 4.1 mmol/L (3.5-5.1); Sodium 129 mmol/L (136-145); Total Protein 6.8 g/dL (6.6-8.7); Uric Acid 5.3 mg/dL (2.4-5.7)
[2024-12-29 05:44] LABS: Calcium 8.9 mg/dL (8.5-10.5)
[2024-12-29 05:47] LABS: Blood Urea Nitrogen 97 mg/dL (8-23)
[2024-12-29 06:08] LABS: Slide Review Slide Review Perform
--- NOTE | 2024-12-29 07:08 | PM.PN ---
Subjective Subjective: Patient seen and examined. Patient states she is feeling better use BiPAP overnight. States breathing is improved. Still has edema. Medications: Reviewed: Yes Medication Review Details: Current Medications Acetaminophen (Acetaminophen 325 Mg Tablet) 650 mg PO Q6H PRN PRN Reason: Mild/Mod Pain Or Temp >/= 101 Albuterol/Ipratropium (Ipratropium-Albuterol 3 Ml Neb) 3 ml INHALATION Q6H.RESP KIMI Last Admin: 12/29/24 01:26 Dose: 3 ml Allopurinol (Allopurinol 100 Mg Tablet) 100 mg PO BID KIMI Last Admin: 12/28/24 17:12 Dose: 100 mg Aminophylline (Aminophylline 25 Mg/Ml Sdv 20 Ml) 25 mg IVP Q2M PRN PRN Reason: see dose instructions Stop: 12/30/24 07:02 Aspirin (Aspirin 81 Mg Ec Tablet) 81 mg PO DAILY PRN PRN Reason: UNKNOWN Atorvastatin Calcium (Atorvastatin 10 Mg Tablet) 20 mg PO DAILY KIMI Last Admin: 12/28/24 08:38 Dose: 20 mg Budesonide (Budesonide 0.5 Mg/2 Ml Neb) 0.5 mg INHALATION BID.RESPIRATORY KIMI Last Admin: 12/28/24 20:01 Dose: 0.5 mg Duloxetine HCl (Duloxetine 60 Mg Capsule) 60 mg PO DAILY KIMI Last Admin: 12/28/24 08:39 Dose: 60 mg Epoetin Jovi-epbx (Epoetin Jovi-Epbx 10,000 Unit/Ml Sdv (Esrd)) 10,000 unit SUBCUT QMWF KIMI Last Admin: 12/27/24 14:37 Dose: 10,000 unit Furosemide (Furosemide 10 Mg/Ml Sdv 10ml) 60 mg IVP Q12H KIMI Last Admin: 12/28/24 21:19 Dose: 60 mg Gabapentin (Gabapentin 300 Mg Capsule) 300 mg PO TID KIMI Last Admin: 12/28/24 21:19 Dose: 300 mg Glucagon (Glucagon 1 Mg/Ml Kit 1 Ml) 1 mg IM ONCE PRN; Protocol PRN Reason: Adult Acute Hypoglycemia Nursing Prot. Heparin Sodium (Porcine) (Heparin 5,000 Unit/Ml Inj 1 Ml) 5,000 unit SUBCUT Q12H KIMI On Hold: 12/24/24 07:54 Last Admin: 12/23/24 23:01 Dose: 5,000 unit Dextrose (D5w) 500 mls @ 0 mls/hr IV ONCE PRN; Protocol PRN Reason: Adult Acute Hypoglycemia Prot Dextrose (D10w) 125 mls @ 750 mls/hr IV PRN PRN; Protocol PRN Reason: Adult Acute Hypoglycemia Nursing Protocol Dextrose (D10w) 250 mls @ 1,000 mls/hr IV PRN PRN; Protocol PRN Reason: Adult Acute Hypoglycemia Nursing Protocol Sodium Chloride (Sodium Chloride 0.9%) 1,000 mls @ 0 mls/hr IV .Q0M PRN PRN Reason: hypotension or symptomatic Albumin Human (Albumin) 12.5 gm in 50 mls @ 60 mls/hr IV PRN PRN PRN Reason: Hypotension and/or symptomatic Insulin Human Lispro (Insulin Lispro 100 Unit/1 Ml) 0 unit SUBCUT WM&BEDTIME KIMI; Protocol Last Admin: 12/28/24 21:19 Dose: 8 unit Lanolin (Lanolin Oint 7 Gm) 1 applic TOPICAL PRN PRN PRN Reason: DRYNESS Last Admin: 12/28/24 17:13 Dose: 1 applic Metoprolol Tartrate (Metoprolol Tartrate 25 Mg Tablet) 25 mg PO BID@0900,2100 KIMI Last Admin: 12/28/24 21:19 Dose: 25 mg Nitroglycerin (Nitroglycerin 0.4 Mg Sublingual Tablet) 0.4 mg SUBLINGUAL Q5M PRN PRN Reason: CHEST PAIN Stop: 12/30/24 07:02 Ondansetron HCl (Ondansetron 2 Mg/Ml Sdv 2 Ml) 4 mg IVP Q6H PRN PRN Reason: NAUSEA AND VOMITING Ondansetron HCl (Ondansetron 2 Mg/Ml Sdv 2 Ml) 4 mg IVP Q2M PRN PRN Reason: NAUSEA Pantoprazole Sodium (Pantoprazole Dr 40 Mg Tablet) 40 mg PO DAILY [facility] Last Admin: 12/28/24 08:38 Dose: 40 mg Regadenoson (Regadenoson 0.4 Mg/5 Ml Syringe) 0.4 mg IVP ONCE PRN PRN Reason: Lexiscan Stress Test Vitals/I&O/Wt Last Vital Signs Temp 97.8 F 12/29/24 04:00 Pulse 77 12/29/24 06:00 Resp 17 12/29/24 06:00 BP 131/69 12/29/24 06:00 Pulse Ox 99 12/29/24 06:00 O2 Del Method BiPAP 12/29/24 04:00 O2 Flow Rate 1 12/28/24 23:00 FiO2 30 12/29/24 04:05 12/28/24 12/29/24 12/29/24 22:59 06:59 14:59 Intake Total 237 / 637 300 / 937 Output Total 700 / 700 Balance -463 / -63 300 / 237 Weight last 48 hrs Weight 97.5 kg Weight 97.5 kg Weight 96 kg Physical Exam Narrative: Obese lady sitting up comfortable using nasal cannula oxygen. HEENT normocephalic with manage. Neck is supple Lungs: Bilateral good air movement Heart irregular, systolic murmur. Abdomen is soft nontender nondistended positive bowel sounds. Extremities 1-2+ edema. Neuro awake alert oriented x 3 Urinary Catheter Management: Lion: Cath Placed During This Visit: yes Reason for Continuing Indwelling Catheter: Accurate Measurement of Urinary Output in Critically Ill Patients Urinary Catheter Date of Insertion: 12/21/24 Urinary Catheter Time of Insertion: 09:58 Data 12/29/24 04:33 12/29/24 04:33 A&P Assessment and plan 1. Acute kidney injury superimposed on CKD: 79-year-old lady diabetes hypertension gout. Rheumatoid arthritis on infliximab and prednisone. Patient has chronic leukocytosis. Patient was admitted with acute on chronic renal failure and acute on chronic exacerbation of heart failure diastolic dysfunction. Patient has non-ST elevation NM also anemia. 1. CKD stage 4- baseline cr 1.8- 2mg/dl 2. PUSHPA-patient has 3+ proteinuria on urinalysis and also has liver cirrhosis. Serologies are pending. Serum immunofixation is normal The patient has low C4 normal C3 - echocardiogram: LVEF 54%, grade 2 diastolic dysfunction, wall motion abnormality akinesis of the basal inferior wall, hypokinesis of the basal inferolateral wall. Mild mitral regurgitation, mild tricuspid regurgitation, mild pulmonary hypertension, dilated IVC. We are assuming this is cardiorenal syndrome however I am not certain. Could be that she has a new liver pathology to. - I discussed with the patient. While she is breathing better she still has edema. And he appears volume overloaded I do not want her to go into respiratory distress again. The patient agrees to dialysis today and will consider doing dialysis today and tomorrow and then monitoring for renal recovery or as an outpatient assessing for renal recovery 3. Right upper lung irregular pulmonary nodule Subsolid nodule left upper lobe: Please ensure she has pulmonary follow-up 4. Anemia: Normal SPEP. Iron saturation of 20% ferritin of 797 Hemoglobin improved to 8.8 Leukocytosis: White cell count up to 23 5. Normal TSH Medications reviewed. Specialist starts The patient was seen and examined using A/V equipment with the aid of a nurse. The patient consents to telehealth and to dialysis. Plan: Leukocytosis evaluation as per medicine, hemodialysis today. PDMP PDMP Reviewed: Not Reviewed Attestations Medical Necessity Statement*: Cardiorenal syndrome, edema question of cirrhosis, leukocytosis, anemia Time Spent in Patient Care: 16 - 35 minutes (>than 50% of time spent in counselling and/or direct pt care on unit). Coding Level of Care Code Acute Code for Chg Fwd Diagnoses Acute kidney injury superimposed on CKD N17.9; N18.9
[2024-12-29] MEDS: ATORVASTATIN 10 MG TABLET 20 MG PO (08:47)
[2024-12-29] MEDS: FUROsemide 10 mg/mL SDV 10mL 60 MG IVP ×2 (08:47→21:07)
[2024-12-29] MEDS: heparin, porcine 1,000 unit/mL INJ 10 mL 1000 UNIT IV (09:45)
--- NOTE | 2024-12-29 09:55 | P.PN_ITS ---
<Statement entered by Juan Daniel Carbajal MD - 12/31/24 13:30> Patient was evaluated and cared for in conjunction with an advanced practice practitioner. I personally saw the patient and reviewed the chart and all pertinent data. I discussed the patient in detail with the advanced practice practitioner. Please see their note for complete assessment and agreed upon plan of care for the patient. Subjective 2 Subjective: She looks better today, is able to lay flat in bed. She is receiving dialysis currently. Abdominal distention has improved significantly. Stress test performed yesterday was abnormal-medium size fixed defect with medium sized herman-infarct ischemia in the inferior apex and inferolateral wall with reduced LVEF 34%. Hemoglobin improved to 8.8. Creatinine increased to 4.8 from 3.9 yesterday. Vitals/I&O/Wt Last Vital Signs Temp 97.7 F 12/29/24 13:11 Pulse 81 12/29/24 14:12 Resp 16 12/29/24 14:12 BP 128/78 12/29/24 14:00 Pulse Ox 95 12/29/24 14:12 O2 Del Method Nasal Cannula 12/29/24 14:12 O2 Flow Rate 1 12/29/24 14:12 FiO2 30 12/29/24 04:05 12/29/24 12/29/24 12/29/24 06:59 14:59 22:59 Intake Total 300 / 937 940 / 940 Output Total 4000 / 4000 Balance 300 / 237 -3060 / -3060 Weight last 48 hrs Weight 213 lb 13.574 oz Weight 214 lb 15.211 oz Weight 214 lb 15.211 oz Weight 211 lb 10.3 oz Physical Exam 2 Const: COMMON NORMALS: no acute distress and patient oriented x3 GENERAL APPEARANCE: cooperative and comfortable ORIENTATION/CONSCIOUSNESS: Yes awake, Yes oriented to person, Yes oriented to place and Yes oriented to time Chest: COMMONS NORMALS: normal inspection of the chest and normal palpation of entire chest wall CHEST: Yes Symmetrical chest wall rise Resp: COMMON NORMALS: normal respiratory effort, No retractions, No use of accessory muscles and clear to auscultation bilaterally EFFORT & INSPECTION: Yes symmetric chest movement AUSCULTATION: clear to auscultation bilaterally Cardio: COMMON NORMALS: regular rate, regular rhythm, S1 normal heart sound present, S2 normal heart sound present, No gallops present (Cardio), No clicks present (Cardio), No murmurs present (Cardio) and No rub (Cardio) RATE: r egular rate RHYTHM: regular rhythm HEART SOUNDS: S1 normal heart sound present and S2 normal heart sound present PERIPHERAL PULSES: radial pulses present Extremity: GENERAL: Yes edema (1+ pitting edema bilat LE below knee) Neuro: COMMON NORMALS: patient oriented x3 and moves all extremities S ENSORIUM/ORIENTATION: Yes oriented to person, Yes oriented to place and Yes oriented to time Urinary Catheter Management: Lion: Cath Placed During This Visit: yes Reason for Continuing Indwelling Catheter: Accurate Measurement of Urinary Output in Critically Ill Patients Urinary Catheter Date of Insertion: 12/21/24 Urinary Catheter Time of Insertion: 09:58 Data 12/29/24 04:33 12/29/24 04:33 A&P Assessment and plan 1. Abnormal nuclear stress test: 2. Coronary artery disease: 3. NSTEMI (non-ST elevated myocardial infarction): 4. CHF exacerbation: 5. Type 2 diabetes mellitus: 6. Acute kidney injury superimposed on CKD: 7. Chronic anemia: Plan: Results of the stress test were discussed with the patient in detail. She would like to proceed with coronary angiogram and receive dialysis immediately procedure. She is aware that she may continue to require dialysis with or without the coronary angiogram. Given that there is ischemia and a reduced stress LVEF there is a likelihood of significant coronary stenosis. She is in agreement to perform coronary angiogram tomorrow morning, likely around 11:00. N.p.o. after midnight tonight. Continue metoprolol tartrate, blood pressure well-controlled. PDMP PDMP Reviewed: Not Reviewed Attestations 2 Medical Necessity Statement*: Ischemic workup coronary angiogram tomorrow Coding Level of Care Code Acute Code for [facility] Fwd Diagnoses Abnormal nuclear stress test R94.39 Coronary artery disease I25.10 NSTEMI (non-ST elevated myocardial infarction) I21.4 CHF exacerbation I50.9 Type 2 diabetes mellitus E11.9 Acute kidney injury superimposed on CKD N17.9; N18.9 Chronic anemia D64.9
--- NOTE | 2024-12-29 10:51 | PC.SOCIAL ---
IMM Update pg 2 of IMM Updated and reviewed w/ patient. Copy provided and copy dated, initialed and placed in chart.
--- NOTE | 2024-12-29 11:16 | P.PN_ITS ---
Subjective 2 Subjective: Seen this morning. Patient returned from stress test which is positive. She is agreeable to angiogram. She has made a decision to proceed with dialysis long-term going forward. She states she feels really good today. Vitals/I&O/Wt Last Vital Signs Temp 97.9 F 12/29/24 09:56 Pulse 79 12/29/24 10:00 Resp 18 12/29/24 10:00 BP 133/67 12/29/24 10:00 Pulse Ox 95 12/29/24 10:00 O2 Del Method Nasal Cannula 12/29/24 10:00 O2 Flow Rate 0.5 12/29/24 10:00 FiO2 30 12/29/24 04:05 12/28/24 12/29/24 12/29/24 22:59 06:59 14:59 Intake Total 237 / 637 300 / 937 240 / 240 Output Total 700 / 700 Balance -463 / -63 300 / 237 240 / 240 Weight last 48 hrs Weight 97.5 kg Weight 97.5 kg Weight 96 kg Physical Exam 2 Const: COMMON NORMALS: no acute distress and patient oriented x3 Resp: COMMON NORMALS: clear to auscultation bilaterally AUSCULTATION: clear to auscultation bilaterally OTHER: clear to auscultation b/l , no wheezes or ronchi, currently getting dialysis Cardio: COMMON NORMALS: regular rate, regular rhythm, S1 normal heart sound present and S2 normal heart sound present RATE: regular rate RHYTHM: r egular rhythm HEART SOUNDS: S1 normal heart sound present and S2 normal heart sound present GI: COMMON NORMALS: Normal to inspection, nondistended, normoactive bowel sounds present and non-tender Extremity: COMMON NORMALS: no pedal edema NARRATIVE EXTREMITY EXAM: 1-2+ pitting edema Neuro: COMMON NORMALS: patient oriented x3, CN's II-XII intact bilaterally and moves all extremities Psych: COMMON NORMALS: mental status grossly normal Urinary Catheter Management: Lion: Cath Placed During This Visit: yes Reason for Continuing Indwelling Catheter: Accurate Measurement of Urinary Output in Critically Ill Patients Urinary Catheter Date of Insertion: 12/21/24 Urinary Catheter Time of Insertion: 09:58 Data 12/29/24 04:33 12/29/24 04:33 A&P Assessment and plan 1. Acute hypoxemic respiratory failure: 2. Anasarca: 3. Acute kidney injury superimposed on CKD: 4. High risk medication use: 5. Leukocytosis: 6. Seronegative rheumatoid arthritis: 7. CHF exacerbation: 8. Acute respiratory distress: 9. Pneumonia: 10. NSTEMI (non-ST elevated myocardial infarction): 11. Acute anemia: 12. Congestive heart failure: 13. Coronary artery disease: 14. Benign essential hypertension with target blood pressure below 140/90: 15. Increased anion gap metabolic acidosis: 16. Sepsis: 17. Goals of care, counseling/discussion: Plan: Acute hypoxic hypercarbic respiratory failure - Multifactorial - From systolic CHF exacerbation - From multifocal pneumonia -Acute respiratory distress CT chest CT/[place] [id number] IMPRESSION: 1. Small bilateral pleural effusions with atelectatic changes in the lung bases. 2. Multiple prominent mediastinal lymph nodes measuring up to 10 mm in short axis. 3. There is an irregular pulmonary nodule in the right upper lobe measuring 16 x 14 mm (series 5, image 18) and a subsolid nodule in the left upper lobe measuring up to 18 x 17 mm (series 5, image 24). While this may represent multifocal multi lobar pneumonia true pulmonary nodules can not be excluded and in the absence of a known primary malignancy the Fleischner -Immunocompromise state -BNP over 20,000 this morning Plan -Moved to ICU - Continue BiPAP therapy as needed during the day, scheduled during the night - Switch to Lasix drip, currently at 20 mg/hr, 1 dose metolazone -Monitor BMP every 4hours - Monitor urine output, monitor creatinine - Vancomycin - Cefepime broaden to meropenem -DuoNeb - Blood cultures, sputum culture - Monitor respiratory status closely - Full code - Heparin for DVT prophylaxis Multifocal pneumonia, as above Sepsis - Secondary to pneumonia Systolic CHF exacerbation - Cardiac echo ordered IVC The inferior vena cava is dilated measuring 2.1 cm with no inspiratory collapse consistent with increased right atrial pressure. CONCLUSIONS 1. Left ventricular segmental wall motion abnormality in the basal inferior and inferolateral wall segments with overall normal ejection fraction of 54%. 2. Mild mitral valve regurgitation 3. Stage II left ventricular diastolic dysfunction 4. Mild concentric left ventricular hypertrophy 5. Mild pulmonary hypertension NSTEMI - No chest pain complaints - Aspirin, statin - History of cardiac cath 03/2020 Diagnostic Findings * No significant disease noted in the Left Main, LAD, Circumflex, or RCA coronary arteries. * Mid Circumflex Coronary Artery: has lesion. * Coronary angiography shows right dominance. * The left main is a medium caliber vessel with minimal intimal irregularities. * The left anterior descending artery is a relatively small to medium caliber vessel with diffuse disease, lesions ranging anywhere from 30 to 50%. The distal artery is a small caliber vessel which wrap around the LV apex minimally. The artery gives off multiple diagonal branches. The second diagonal branch was found to have 40 to 50% diffuse narrowing in the proximal segment. The other diagonal branches were found to have mild diffuse disease. * The circumflex artery is a medium to large caliber vessel which was found to have around 40% proximal segmental narrowing. The first obtuse marginal branch is a relatively small caliber vessel with 50 to 60% diffuse narrowing. Right after the second obtuse marginal branch, the artery appears to have around 50 to 60% tubular narrowing with some haziness. No other significant stenotic lesions were seen. * The right coronary artery is a medium caliber dominant vessel which also was found to have mild to moderate diffuse disease in the proximal and distal segment. The lesions were ranging anywhere from 30 to 50%. The PDA branch was found to have a proximal around 40% narrowing involving the ostium. No other significant stenotic lesions were noted. - Cardiac echo as above - Cardiology consulted Acute kidney injury -Creatinine 3.9 -Component of sepsis -Urine output 3 L -With hyperkalemia, hyponatremia, metabolic acidosis - Monitor urine output, monitor creatinine - Nephrology consulted - Patient declines dialysis Increased anion gap and metabolic acidosis - From acute renal failure, sepsis Liver cirrhosis? Etiology unclear Type 2 diabetes mellitus, low-dose sliding scale Acute on chronic anemia, monitor - Hemoglobin 6.8, will transfuse 1 unit PRBC DVT prophylaxis: Heparin 5000 subcutaneously every 12 hours, on hold due to anemia, SCDs Full code Continue IV antibiotics, Lasix drip, transfuse 1 unit. BC 12/25/2024 Consulted neurosurgery for temporary dialysis catheter placement. Patient will require dialysis today. Nephrology following and consulted. Hemoglobin 7.9 this morning most likely secondary to iron deficiency anemia secondary to CKD. Patient is significantly fluid overloaded. Requires dialysis for fluid removal. proBNP greater than 70,000. Procalcitonin 1.56. CT abdomen pelvis on 12/20 showed multifocal pneumonia. Also has irregular pulmonary nodule in right upper lobe measuring 16 x 14 mm. Patient does have cirrhotic liver. Her shortness of breath is multifactorial secondary to renal failure, CHF, multifocal pneumonia. Eventually we need interventional pulmonary consult for lymph node biopsy if patient agreeable. She is on infliximab every 30 days. Continue patient on Vanco and meropenem. 12/26/2024 Patient undergoing dialysis at this time. She does have evidence of liver cirrhosis on her CT scan. Unclear if patient was aware of this diagnosis prior. IVC dilated 2.1 cm on echo. Does have wall motion abnormalities in basal inferior and inferolateral wall segments. EF 54%. Cardiology consulted. Plan for stress test in AM. After first session of dialysis 3 L was removed. Subjectively shortness of breath is slightly better. Undergoing second session of dialysis today. Will check venous Dopplers bilateral lower extremities ? Due to elevated creatinine will check VQ scan and check D-dimer. ? Will do abdominal ultrasound to assess for ascites. Patient may require paracentesis if ascites present. This may be causing restrictive phenomenon for lungs contributing to her shortness of breath. ? She does have multifocal pneumonia for which she is on bank and meropenem at this time. ? I will discuss with pulmonology as well however I have been told there is no one on-call today. ? Will continue to monitor patient and complete above workup. ? I discussed with patient briefly this morning regarding her lung nodule however she stated that she is 79 years old and probably will not undergo further workup for that at this time however would like to discuss with me at a later time. ? Hemoglobin 7.7 this morning. ? Check iron panel, ferritin, TIBC percent saturation ? White count 19,000 today. Has been persistently elevated in last few visits. Unclear if this is secondary to infection versus possible underlying leukemia. Will check lymphoma leukemia profile and check peripheral smear. ? I will complete antibiotics for 10 days total to cover for her multifocal pneumonia ? Continue to monitor in ICU. ? Appreciate cardiology and nephrology recommendations 12/27/2024 Had a long discussion with patient regarding goals of care today. She states she does not want a feeding tube. Ideally does not want long-term dialysis however she may consider it. She states that she has a huge transportation problem as she lives in [place]. She is worried how will she get to dialysis if that is what she ends up needing. Discussed with her the potential of a kidney biopsy, lung biopsy for nodule going forward and had a discussion regarding how aggressive she wants to be with her care. She states she will not have any kind of interventional procedures for example biopsy. She may be agreeable to a cardiac stress test however she will think about it. She would like to be DNR/DNI. She states if anything happens let me go. She states she has a power of personal injury attorney and her nephew's name. Her niece has had a stroke and therefore patient states she is pretty much on her own. D-dimer 4.75. VQ scan ability for PE. Hemoglobin 8.1 today. Nephrology following. Check iron studies. subjectively feeling better And iron profile C3-C4 CH 50 glomerular basement membrane antibody leukemia lymphoma profile, peripheral blood smear ANCA pending EPO ordered today. Last day of antibiotic December 28. Nephrology following appreciate recommendations 12/28/2024 seen today hb 8.20 this am plan for holding dialysis today He is unsure if she wants to do permanent dialysis or not. Nephrology and I both had a long discussion with her. We will discuss with social media specialist regarding transportation options for the patient. She may require rehab at discharge. We will move to cardiac stepdown unit today. Continue to monitor kidney function. Heart rate is better controlled at this time. Cardiology following 12/29/2024 Hemoglobin 8.8 today. Patient has completed antibiotics. She is agreeable to dialysis Plan for coronary angiogram with immediate dialysis right after. Patient agreeable. Cardiology to schedule angiogram most likely for tomorrow. Discussed with cardiology. Plan for dialysis today She is down to 1 L nasal cannula. She states she is feeling a lot better. EF 34%,Medium sized area of inferior infarction with a medium sized area of herman- infarct ischemia in the inferior apex and inferolateral wall segments May transfer to CSU. PDMP PDMP Reviewed: Not Reviewed Attestations 2 Medical Necessity Statement*: continued hospitalization required due to multiple medical issues Diagnoses Acute hypoxemic respiratory failure J96.01 Anasarca R60.1 Acute kidney injury superimposed on CKD N17.9; N18.9 High risk medication use Z79.899 Leukocytosis D72.829 Seronegative rheumatoid arthritis M06.00 CHF exacerbation I50.9 Acute respiratory distress R06.03 Pneumonia J18.9 NSTEMI (non-ST elevated myocardial infarction) I21.4 Acute anemia D64.9 Congestive heart failure I50.9 Coronary artery disease I25.10 Benign essential hypertension with target blood pressure below 140/90 I10 Increased anion gap metabolic acidosis E87.29 Sepsis A41.9 Goals of care, counseling/discussion Z71.89
--- NOTE | 2024-12-29 13:28 | NMCV_ITS ---
NM ramin perf SPECT r/s* [id number] Adina Gracia Age: 79 Gender: F : 1945 Exam Date: 12/29/2024 06:56 Ordering Phys: Elisabeth Alanis Technologist: CYRUS Amezquita Exam Location: [facility] [place] Indications: cp STRESS TEST Please see separate stress test report in [facility] for full findings IMAGE PROTOCOL Rest/Stress 1 Lexiscan Day Radiopharmaceutical Dose (mCi) Administration Site Administered by Rest: Tc-99m 10.3 IV Nargis Mak, HOT BOX CHECKER Sestamibi Stress:Tc-99m 33 IV Nargis Handygle, HOT BOX CHECKER Sestamibi Rest: 29-Dec-2024 60 Discovery 630 Stress: 29-Dec-2024 30 Discovery 630 0.4mg Lexiscan. Supine position only as patient was unable to lay prone. SPECT RESULTS Technical Quality: Good Raw Data Analysis: Normal Image Corrections: No attenuation or motion correction applied Summed Stress Score: 18 Summed Rest Score: 10 Summed Difference Score: 8 PERFUSION FINDINGS There is a large sized area of severely reduced tracer counts in the inferior and inferolateral major on stress images which partially improves on the resting images. Findings are consistent with a medium sized infarction with a medium sized area of herman-infarct ischemia. FUNCTIONAL RESULTS (calculated via Gated SPECT) Stress Image LV EF (%): 34 Stress EDV (mL):177 TID: 1.09 Stress ESV (mL):117 FUNCTIONAL FINDINGS: Moderately reduced left ventricular systolic function with EF of 34% IMPRESSIONS 1. Medium sized area of inferior infarction with a medium sized area of herman- infarct ischemia in the inferior apex and inferolateral wall segments 2. Moderately reduced left ventricular systolic function with EF 34% Juan Daniel Carbajal MD, FACC (Electronically Signed) Final Date: 29 December 2024 09:04 S
--- NOTE | 2024-12-29 15:24 | PC.OT ---
OT treatment session attempted with pt unavailable due to procedure; will attempt again at a later time.
--- NOTE | 2024-12-29 15:45 | PC.NURSE ---
PICC line dressing change performed using sterile technique. Statlock and end caps changed. Patient tolerated procedure well. I was also going to prep patient for cath by shaving her wrist and groin, however, patient has visitors and requested to wait until later this afternoon or evening before shaving. I agreed and went ahead and marked bilateral pedal pulses. I spoke with Olga Lopez RN and informed him of the above information.
--- NOTE | 2024-12-29 15:50 | PC.NURSE ---
Upon review, Diphenhydramine came due and it's intended to be a medication administered prior to cath on 12/30. I called and spoke with Ernesto in pharmacy and he is retiming it for 0700 on 12/30.
--- NOTE | 2024-12-29 16:39 | PC.OT ---
Pt. seen for self-care tasks of washing face and brushing teeth. Pt. engages in washing face with set-up assist. Pt. is able to open toothpaste and apply to toothpaste to toothbrush with set-up assist. Pt. reports normally using electric toothbrush but does not report any shortness of breath or fatigue from manual toothbrush use. Pt. engages in self-care tasks seated in chair without demonstrating shortness of breath. Pt's oxygen levels remained between 92%-94%. Pt. education provided on safety and energy conservation techniques for reduced shortness of breath and fatigue.
[2024-12-30] VITALS (18 sets, daily range): BP systolic 120–142; BP diastolic 55–73; PULSE 76–88; RESP 16–24; TEMP 36.4–37.1; O2SAT 90–98
[2024-12-30 03:06] LABS: Hematocrit 27.7 % (36-47); Hemoglobin 8.40 g/dL (11.27-16.99); Mean Corpuscular HGB Conc 30.3 g/dL (30-55); Mean Corpuscular Hemoglobin 26.8 pg (27-33); Mean Corpuscular Volume 88.5 fl (85-98); Nucleated Red Blood Cells % 0 %; Platelet Count 287 10^3/cmm (157-399); Red Blood Count 3.13 10^6/uL (3.85-5.65); White Blood Count 22.11 10^3/uL (3.29-11.43)
[2024-12-30 03:27] LABS: Alanine Aminotransferase 13 U/L (0-33); Albumin Level 3.0 g/dL (3.5-5.2); Alkaline Phosphatase 99 U/L (35-105); Anion Gap 20.0 (5-19); Aspartate Amino Transferase 16 U/L (0-32); Blood Urea Nitrogen 68 mg/dL (8-23); Calcium 8.9 mg/dL (8.5-10.5); Carbon Dioxide 24 mmol/L (22-29); Chloride 94 mmol/L (98-107); Creatinine Clr Calc Pharmacy 13.2585; Globulin 3.6 g/dL (1.3-4.6); Glucose 154 mg/dL (65-115); Magnesium 1.8 mg/dL (1.7-2.3); Osmolality Calculated 301 mOsm/kg (285-295); Potassium 4.0 mmol/L (3.5-5.1); Sodium 134 mmol/L (136-145); Total Protein 6.6 g/dL (6.6-8.7)
[2024-12-30] MEDS: FUROsemide 10 mg/mL SDV 10mL 60 MG IVP ×2 (07:50→20:43)
[2024-12-30] MEDS: ATORVASTATIN 10 MG TABLET 20 MG PO (07:51)
--- NOTE | 2024-12-30 11:02 | W.PM.OPSUD ---
Surgery/Procedure H&P Update DATE OF PROCEDURE: December 30, 2024 DATE H&P PERFORMED: 12/22/24 H&P UPDATE INFORMATION: I have reviewed H&P completed within last 30 days, I have examined patient prior to procedure and Changes to prior documentation as noted here CHANGES TO PREVIOUS DOCUMENTATION: Stress test was performed that was abnormal in the left circumflex artery territory. PREOP DIAGNOSIS: Chest pain/ abnormal stress test PRIMARY INDICATION FOR PROCEDURE: Chest pain/ abnormal stress test PLANNED PROCEDURE: Operation Date: 12/30/24 07:00 Proposed Procedures p Cardiac Catheterization(Left) - Karlo Hughes M.D Possible percutaneous coronary intervention PATIENT REASSESSED PRIOR TO SEDATION, WITH NO CHANGE NOTED: Yes PHYSICAL EXAM: alert, oriented x 3, clear to auscultation bilaterally and regular rate & rhythm AIRWAY EVAL/ANESTHESIA PLAN: normal airway, ASA III, Local Anesthesia, Risks, benefits & alternatives of sedation and/or procedure discussed and Patient agrees to continue as planned ADDITIONAL INFORMATION: Moderate sedation
--- NOTE | 2024-12-30 11:18 | PC.NURSE ---
patient off the floor to mini lab operator. Patient will be taken to dialysis from mini lab operator post procedure.
--- NOTE | 2024-12-30 11:22 | PM.PN ---
Subjective Subjective: no new c/o Medications: Reviewed: Yes Vitals/I&O/Wt Last Vital Signs Temp 97.9 F 12/30/24 07:15 Pulse 80 12/30/24 08:03 Resp 16 12/30/24 07:53 BP 120/57 12/30/24 07:15 Pulse Ox 90 12/30/24 08:03 O2 Del Method Room Air 12/30/24 08:03 O2 Flow Rate 1 12/30/24 07:53 FiO2 30 12/30/24 01:33 12/29/24 12/30/24 12/30/24 22:59 06:59 14:59 Intake Total 520 / 1460 Output Total 875 / 4875 400 / 5275 Balance -355 / -3415 -400 / -3815 Weight last 48 hrs Weight 95.164 kg Weight 97 kg Weight 97.5 kg Physical Exam Narrative: Obese lady sitting up comfortable using nasal cannula oxygen. HEENT normocephalic with manage. Neck is supple Lungs: Bilateral good air movement Heart irregular, systolic murmur. Abdomen is soft nontender nondistended positive bowel sounds. Extremities 1-2+ edema. Neuro awake alert oriented x 3 Urinary Catheter Management: Lion: Cath Placed During This Visit: yes Reason for Continuing Indwelling Catheter: Accurate Measurement of Urinary Output in Critically Ill Patients Urinary Catheter Date of Insertion: 12/21/24 Urinary Catheter Time of Insertion: 09:58 Data 12/30/24 02:18 12/30/24 02:18 A&P Assessment and plan 1. Acute kidney injury superimposed on CKD: 79-year-old lady diabetes hypertension gout. Rheumatoid arthritis on infliximab and prednisone. Patient has chronic leukocytosis. Patient was admitted with acute on chronic renal failure and acute on chronic exacerbation of heart failure diastolic dysfunction. Patient has non-ST elevation NM also anemia. 1. CKD stage 4- baseline cr 1.8- 2mg/dl 2. PUSHPA-patient has 3+ proteinuria on urinalysis and also has liver cirrhosis. Serologies are pending. Serum immunofixation is normal The patient has low C4 normal C3 - echocardiogram: LVEF 54%, grade 2 diastolic dysfunction, wall motion abnormality akinesis of the basal inferior wall, hypokinesis of the basal inferolateral wall. Mild mitral regurgitation, mild tricuspid regurgitation, mild pulmonary hypertension, dilated IVC. We are assuming this is cardiorenal syndrome. Could be that she has a new liver pathology to. - s/p HD yesterday and plan for SCUF today - will monitor for renal recovery 3. Right upper lung irregular pulmonary nodule Subsolid nodule left upper lobe: Please ensure she has pulmonary follow-up 4. Anemia: Normal SPEP. Iron saturation of 20% ferritin of 797 Hemoglobin improved to 8.8 Leukocytosis: White cell count up to 23 5, abnormal stress test , [facility] today Medications reviewed. The patient was seen and examined using A/V equipment with the aid of a nurse. The patient consents to telehealth and to dialysis. Plan: Leukocytosis evaluation as per medicine, hemodialysis today. PDMP PDMP Reviewed: Not Reviewed Attestations Medical Necessity Statement*: per [facility] Coding Level of Care Code Acute Code for [facility] Fwd Diagnoses Acute kidney injury superimposed on CKD N17.9; N18.9
--- NOTE | 2024-12-30 11:50 | P.PCN_ITS ---
Procedure Note: Date of procedure: 12/30/24 Pre-procedure diagnosis: Chest pain/ abnormal stress test Post-procedure diagnosis: other Procedure: Severe proximal to mid Left circumflex artery stenosis s/p PCI with 2 stents. RCA is [employer]. Proximal to mid LAD has 70% diffuse disease. Medical therapy for now. If tolerates antiplatelet/anticoagulation agents and is symptomatic, will consider PCI as a staged procedure Loaded with Aspirin and plavix. Continue Will have dialysis today Performing Provider: Karlo Hughes Estimated blood loss (mL): 10 Complications: None Condition: stable Disposition: floor Coding Level of Care Code Acute Code for [facility] Fwd
--- NOTE | 2024-12-30 12:53 | PC.HD ---
Patient status-post heart catheterization. Per Dr. Calhoun, change dialysis treatment from isolated ultrafiltration (IUF) to full HD with 2k dialysate bath. Adjustments to diaylsis prescription made prior to treatment initiation.
--- NOTE | 2024-12-30 13:22 | PC.NURSE ---
Patient currently in dialysis.
--- NOTE | 2024-12-30 13:37 | P.PN_ITS ---
Subjective 2 Subjective: Patient is doing well. Had PCI of proximal to mid left circumflex artery. LAD has diffuse disease from proximal to mid LAD. Vitals/I&O/Wt Last Vital Signs Temp 97.5 F L 12/30/24 12:22 Pulse 82 12/30/24 12:22 Resp 16 12/30/24 12:22 BP 139/73 12/30/24 12:22 Pulse Ox 90 12/30/24 08:03 O2 Del Method Room Air 12/30/24 08:03 O2 Flow Rate 1 12/30/24 07:53 FiO2 30 12/30/24 01:33 12/29/24 12/30/24 12/30/24 22:59 06:59 14:59 Intake Total 520 / 1460 Output Total 875 / 4875 400 / 5275 Balance -355 / -3415 -400 / -3815 Weight last 48 hrs Weight 209 lb 12.8 oz Weight 213 lb 13.574 oz Weight 214 lb 15.211 oz Physical Exam 2 Urinary Catheter Management: Lion: Cath Placed During This Visit: yes Reason for Continuing Indwelling Catheter: Accurate Measurement of Urinary Output in Critically Ill Patients Urinary Catheter Date of Insertion: 12/21/24 Urinary Catheter Time of Insertion: 09:58 Data 12/30/24 02:18 12/30/24 02:18 A&P Assessment and plan 1. Abnormal nuclear stress test: 2. Coronary artery disease: 3. NSTEMI (non-ST elevated myocardial infarction): 4. CHF exacerbation: 5. Type 2 diabetes mellitus: 6. Acute kidney injury superimposed on CKD: 7. Chronic anemia: Plan: Patient had PCI of left circumflex artery with 2 stents. Continue aspirin and plavix High intensity statin therapy LAD has residual disease. Will likely need staged PCI in 2-4 weeks PDMP PDMP Reviewed: Not Reviewed Attestations 2 Medical Necessity Statement*: Care expected to cross 2 midnights. Coding Level of Care Code Acute Code for [facility] Diagnoses Abnormal nuclear stress test R94.39 Coronary artery disease I25.10 NSTEMI (non-ST elevated myocardial infarction) I21.4 CHF exacerbation I50.9 Type 2 diabetes mellitus E11.9 Acute kidney injury superimposed on CKD N17.9; N18.9 Chronic anemia D64.9
[2024-12-30 14:49] LABS: Glomerular Bsmt Membrane IGG <1.0 AI
[2024-12-30 15:09] LABS: ANCA Screen NEGATIVE (NEGATIVE)
--- NOTE | 2024-12-30 15:18 | P.PN_ITS ---
Subjective 2 Subjective: Seen this morning. She will be going for coronary angiogram today Vitals/I&O/Wt Last Vital Signs Temp 97.5 F L 12/30/24 12:22 Pulse 82 12/30/24 12:22 Resp 16 12/30/24 12:22 BP 139/73 12/30/24 12:22 Pulse Ox 90 12/30/24 08:03 O2 Del Method Room Air 12/30/24 08:03 O2 Flow Rate 1 12/30/24 07:53 FiO2 30 12/30/24 01:33 12/30/24 12/30/24 12/30/24 06:59 14:59 22:59 Output Total 400 / 5275 Balance -400 / -3815 Weight last 48 hrs Weight 95.164 kg Weight 97 kg Weight 97.5 kg Physical Exam 2 Const: COMMON NORMALS: no acute distress and patient oriented x3 Resp: COMMON NORMALS: clear to auscultation bilaterally AUSCULTATION: clear to auscultation bilaterally OTHER: clear to auscultation b/l , no wheezes or ronchi, currently getting dialysis Cardio: COMMON NORMALS: regular rate, regular rhythm, S1 normal heart sound present and S2 normal heart sound present RATE: regular rate RHYTHM: r egular rhythm HEART SOUNDS: S1 normal heart sound present and S2 normal heart sound present GI: COMMON NORMALS: Normal to inspection, nondistended, normoactive bowel sounds present and non-tender Extremity: COMMON NORMALS: no pedal edema NARRATIVE EXTREMITY EXAM: 1-2+ pitting edema Neuro: COMMON NORMALS: patient oriented x3, CN's II-XII intact bilaterally and moves all extremities Psych: COMMON NORMALS: mental status grossly normal Urinary Catheter Management: Lion: Cath Placed During This Visit: yes Reason for Continuing Indwelling Catheter: Accurate Measurement of Urinary Output in Critically Ill Patients Urinary Catheter Date of Insertion: 12/21/24 Urinary Catheter Time of Insertion: 09:58 Data 12/30/24 02:18 12/30/24 02:18 A&P Assessment and plan 1. Acute hypoxemic respiratory failure: 2. Anasarca: 3. Acute kidney injury superimposed on CKD: 4. High risk medication use: 5. Leukocytosis: 6. Seronegative rheumatoid arthritis: 7. CHF exacerbation: 8. Acute respiratory distress: 9. Pneumonia: 10. NSTEMI (non-ST elevated myocardial infarction): 11. Acute anemia: 12. Congestive heart failure: 13. Coronary artery disease: 14. Benign essential hypertension with target blood pressure below 140/90: 15. Increased anion gap metabolic acidosis: 16. Sepsis: 17. Goals of care, counseling/discussion: Plan: Acute hypoxic hypercarbic respiratory failure - Multifactorial - From systolic CHF exacerbation - From multifocal pneumonia -Acute respiratory distress CT chest CT/[place] [id number] IMPRESSION: 1. Small bilateral pleural effusions with atelectatic changes in the lung bases. 2. Multiple prominent mediastinal lymph nodes measuring up to 10 mm in short axis. 3. There is an irregular pulmonary nodule in the right upper lobe measuring 16 x 14 mm (series 5, image 18) and a subsolid nodule in the left upper lobe measuring up to 18 x 17 mm (series 5, image 24). While this may represent multifocal multi lobar pneumonia true pulmonary nodules can not be excluded and in the absence of a known primary malignancy the Fleischner -Immunocompromise state -BNP over 20,000 this morning Plan -Moved to ICU - Continue BiPAP therapy as needed during the day, scheduled during the night - Switch to Lasix drip, currently at 20 mg/hr, 1 dose metolazone -Monitor BMP every 4hours - Monitor urine output, monitor creatinine - Vancomycin - Cefepime broaden to meropenem -DuoNeb - Blood cultures, sputum culture - Monitor respiratory status closely - Full code - Heparin for DVT prophylaxis Multifocal pneumonia, as above Sepsis - Secondary to pneumonia Systolic CHF exacerbation - Cardiac echo ordered IVC The inferior vena cava is dilated measuring 2.1 cm with no inspiratory collapse consistent with increased right atrial pressure. CONCLUSIONS 1. Left ventricular segmental wall motion abnormality in the basal inferior and inferolateral wall segments with overall normal ejection fraction of 54%. 2. Mild mitral valve regurgitation 3. Stage II left ventricular diastolic dysfunction 4. Mild concentric left ventricular hypertrophy 5. Mild pulmonary hypertension NSTEMI - No chest pain complaints - Aspirin, statin - History of cardiac cath 03/2020 Diagnostic Findings * No significant disease noted in the Left Main, LAD, Circumflex, or RCA coronary arteries. * Mid Circumflex Coronary Artery: has lesion. * Coronary angiography shows right dominance. * The left main is a medium caliber vessel with minimal intimal irregularities. * The left anterior descending artery is a relatively small to medium caliber vessel with diffuse disease, lesions ranging anywhere from 30 to 50%. The distal artery is a small caliber vessel which wrap around the LV apex minimally. The artery gives off multiple diagonal branches. The second diagonal branch was found to have 40 to 50% diffuse narrowing in the proximal segment. The other diagonal branches were found to have mild diffuse disease. * The circumflex artery is a medium to large caliber vessel which was found to have around 40% proximal segmental narrowing. The first obtuse marginal branch is a relatively small caliber vessel with 50 to 60% diffuse narrowing. Right after the second obtuse marginal branch, the artery appears to have around 50 to 60% tubular narrowing with some haziness. No other significant stenotic lesions were seen. * The right coronary artery is a medium caliber dominant vessel which also was found to have mild to moderate diffuse disease in the proximal and distal segment. The lesions were ranging anywhere from 30 to 50%. The PDA branch was found to have a proximal around 40% narrowing involving the ostium. No other significant stenotic lesions were noted. - Cardiac echo as above - Cardiology consulted Acute kidney injury -Creatinine 3.9 -Component of sepsis -Urine output 3 L -With hyperkalemia, hyponatremia, metabolic acidosis - Monitor urine output, monitor creatinine - Nephrology consulted - Patient declines dialysis Increased anion gap and metabolic acidosis - From acute renal failure, sepsis Liver cirrhosis? Etiology unclear Type 2 diabetes mellitus, low-dose sliding scale Acute on chronic anemia, monitor - Hemoglobin 6.8, will transfuse 1 unit PRBC DVT prophylaxis: Heparin 5000 subcutaneously every 12 hours, on hold due to anemia, SCDs Full code Continue IV antibiotics, Lasix drip, transfuse 1 unit. 12/25/2024 Consulted neurosurgery for temporary dialysis catheter placement. Patient will require dialysis today. Nephrology following and consulted. Hemoglobin 7.9 this morning most likely secondary to iron deficiency anemia secondary to CKD. Patient is significantly fluid overloaded. Requires dialysis for fluid removal. proBNP greater than 70,000. Procalcitonin 1.56. CT abdomen pelvis on 12/20 showed multifocal pneumonia. Also has irregular pulmonary nodule in right upper lobe measuring 16 x 14 mm. Patient does have cirrhotic liver. Her shortness of breath is multifactorial secondary to renal failure, CHF, multifocal pneumonia. Eventually we need interventional pulmonary consult for lymph node biopsy if patient agreeable. She is on infliximab every 30 days. Continue patient on Vanco and meropenem. 12/26/2024 Patient undergoing dialysis at this time. She does have evidence of liver cirrhosis on her CT scan. Unclear if patient was aware of this diagnosis prior. IVC dilated 2.1 cm on echo. Does have wall motion abnormalities in basal inferior and inferolateral wall segments. EF 54%. Cardiology consulted. Plan for stress test in AM. After first session of dialysis 3 L was removed. Subjectively shortness of breath is slightly better. Undergoing second session of dialysis today. Will check venous Dopplers bilateral lower extremities ? Due to elevated creatinine will check VQ scan and check D-dimer. ? Will do abdominal ultrasound to assess for ascites. Patient may require paracentesis if ascites present. This may be causing restrictive phenomenon for lungs contributing to her shortness of breath. ? She does have multifocal pneumonia for which she is on bank and meropenem at this time. ? I will discuss with pulmonology as well however I have been told there is no one on-call today. ? Will continue to monitor patient and complete above workup. ? I discussed with patient briefly this morning regarding her lung nodule however she stated that she is 79 years old and probably will not undergo further workup for that at this time however would like to discuss with me at a later time. ? Hemoglobin 7.7 this morning. ? Check iron panel, ferritin, TIBC percent saturation ? White count 19,000 today. Has been persistently elevated in last few visits. Unclear if this is secondary to infection versus possible underlying leukemia. Will check lymphoma leukemia profile and check peripheral smear. ? I will complete antibiotics for 10 days total to cover for her multifocal pneumonia ? Continue to monitor in ICU. ? Appreciate cardiology and nephrology recommendations 12/27/2024 Had a long discussion with patient regarding goals of care today. She states she does not want a feeding tube. Ideally does not want long-term dialysis however she may consider it. She states that she has a huge transportation problem as she lives in [place]. She is worried how will she get to dialysis if that is what she ends up needing. Discussed with her the potential of a kidney biopsy, lung biopsy for nodule going forward and had a discussion regarding how aggressive she wants to be with her care. She states she will not have any kind of interventional procedures for example biopsy. She may be agreeable to a cardiac stress test however she will think about it. She would like to be DNR/DNI. She states if anything happens let me go. She states she has a power of compliance attorney and her nephew's name. Her niece has had a stroke and therefore patient states she is pretty much on her own. D-dimer 4.75. VQ scan ability for PE. Hemoglobin 8.1 today. Nephrology following. Check iron studies. subjectively feeling better And iron profile C3-C4 CH 50 glomerular basement membrane antibody leukemia lymphoma profile, peripheral blood smear ANCA pending EPO ordered today. Last day of antibiotic December 28. Nephrology following appreciate recommendations 12/28/2024 seen today hb 8.20 this am plan for holding dialysis today He is unsure if she wants to do permanent dialysis or not. Nephrology and I both had a long discussion with her. We will discuss with social services director regarding transportation options for the patient. She may require rehab at discharge. We will move to cardiac stepdown unit today. Continue to monitor kidney function. Heart rate is better controlled at this time. Cardiology following 12/29/2024 Hemoglobin 8.8 today. Patient has completed antibiotics. She is agreeable to dialysis Plan for coronary angiogram with immediate dialysis right after. Patient agreeable. Cardiology to schedule angiogram most likely for tomorrow. Discussed with cardiology. Plan for dialysis today She is down to 1 L nasal cannula. She states she is feeling a lot better. EF 34%,Medium sized area of inferior infarction with a medium sized area of herman- infarct ischemia in the inferior apex and inferolateral wall segments May transfer to [facility]. 12/30/2024 Hemoglobin 8.4 Plan for coronary angiogram today and dialysis right after Stress test was positive Patient has completed antibiotics Continue current medications as ordered Continue to monitor in CICU. Patient agreeable for permanent dialysis Will plan for PermCath on Wednesday. PDMP PDMP Reviewed: Not Reviewed Attestations 2 Medical Necessity Statement*: Coronary angiogram today Diagnoses Acute hypoxemic respiratory failure J96.01 Anasarca R60.1 Acute kidney injury superimposed on CKD N17.9; N18.9 High risk medication use Z79.899 Leukocytosis D72.829 Seronegative rheumatoid arthritis M06.00 CHF exacerbation I50.9 Acute respiratory distress R06.03 Pneumonia J18.9 NSTEMI (non-ST elevated myocardial infarction) I21.4 Acute anemia D64.9 Congestive heart failure I50.9 Coronary artery disease I25.10 Benign essential hypertension with target blood pressure below 140/90 I10 Increased anion gap metabolic acidosis E87.29 Sepsis A41.9 Goals of care, counseling/discussion Z71.89
--- NOTE | 2024-12-30 16:31 | PC.NURSE ---
Patient received from dialysis. Sheath from cathode washer remains in place to right groin. No s/s of bleeding or hematoma formation observed. Instructed patient on plan for sheath removal. Patient verbalized complete understanding. Will continue to monitor.
[2024-12-30 16:32] LABS: Partial Thromboplastin Time 36.5 SECONDS (23.9-36.7)
--- NOTE | 2024-12-30 17:20 | PC.NURSE ---
Sheath removed at this time per protocol. Hemostasis achieved immediately. Maintained pressure to site for 20min. VS remained WNL. Covered site with 4x4 and bio-occlusive dressing. No s/s of bleeding or hematoma formation observed. Instructed patient on site care and restrictions. Patient verbalized comlpete understanding. Dr Hughes in to see patient.
[2024-12-31] VITALS (11 sets, daily range): BP systolic 115–128; BP diastolic 62–67; PULSE 72–85; RESP 17–27; TEMP 36.1–36.8; O2SAT 92–98
[2024-12-31 04:10] LABS: Hematocrit 28.5 % (36-47); Hemoglobin 8.50 g/dL (11.27-16.99); Mean Corpuscular HGB Conc 29.8 g/dL (30-55); Mean Corpuscular Hemoglobin 26.7 pg (27-33); Mean Corpuscular Volume 89.6 fl (85-98); Nucleated Red Blood Cells % 0 %; Platelet Count 311 10^3/cmm (157-399); Red Blood Count 3.18 10^6/uL (3.85-5.65); White Blood Count 21.18 10^3/uL (3.29-11.43)
[2024-12-31 04:37] LABS: Alanine Aminotransferase 16 U/L (0-33); Albumin Level 3.1 g/dL (3.5-5.2); Alkaline Phosphatase 98 U/L (35-105); Anion Gap 17.8 (5-19); Aspartate Amino Transferase 26 U/L (0-32); Blood Urea Nitrogen 51 mg/dL (8-23); Calcium 8.7 mg/dL (8.5-10.5); Carbon Dioxide 24 mmol/L (22-29); Chloride 95 mmol/L (98-107); Creatinine Clr Calc Pharmacy 15.2083; Globulin 3.3 g/dL (1.3-4.6); Glucose 127 mg/dL (65-115); Magnesium 1.8 mg/dL (1.7-2.3); Osmolality Calculated 291 mOsm/kg (285-295); Potassium 3.8 mmol/L (3.5-5.1); Sodium 133 mmol/L (136-145); Total Protein 6.4 g/dL (6.6-8.7)
--- NOTE | 2024-12-31 07:38 | P.PN_ITS ---
Subjective 2 Subjective: Patient doing well. No chest pain. No access site abnormalities. Vitals/I&O/Wt Last Vital Signs Temp 97.7 F 12/31/24 07:19 Pulse 75 12/31/24 07:19 Resp 17 12/31/24 07:19 BP 119/63 12/31/24 07:19 Pulse Ox 97 12/31/24 07:19 O2 Del Method BiPAP 12/31/24 04:00 O2 Flow Rate 1 12/30/24 07:53 FiO2 30 12/31/24 03:50 12/30/24 12/31/24 12/31/24 22:59 06:59 14:59 Intake Total 900 / 900 Output Total 3550 / 3550 Balance -2650 / -2650 Weight last 48 hrs Weight 214 lb 12.8 oz Weight 213 lb 13.574 oz Weight 209 lb 12.8 oz Weight 213 lb 13.574 oz Physical Exam 2 Narrative: GENERAL: Patient is alert, awake and oriented x3. [] NECK: No jugular vein distension. [] HEENT: No cyanosis. No icterus. No pallor. [] HEART: Regular S1 and S2. No murmur, rub or gallop. [] LUNGS: Clear to auscultate bilaterally. [] CENTRAL NERVOUS SYSTEM: Grossly nonfocal. [] EXTREMITIES: Lower extremities with 1+ edema bilaterally. Urinary Catheter Management: Lion: Cath Placed During This Visit: yes Reason for Continuing Indwelling Catheter: Accurate Measurement of Urinary Output in Critically Ill Patients Urinary Catheter Date of Insertion: 12/21/24 Urinary Catheter Time of Insertion: 09:58 Data 01/01/25 04:38 01/01/25 04:38 A&P Assessment and plan 1. Abnormal nuclear stress test: 2. Coronary artery disease: 3. NSTEMI (non-ST elevated myocardial infarction): 4. CHF exacerbation: 5. Type 2 diabetes mellitus: 6. Acute kidney injury superimposed on CKD: 7. Chronic anemia: Plan: Patient is stable from cardiac standpoint. Continue aspirin and Plavix. High intensity statin therapy LAD has residual disease. Will likely need staged PCI in 2-4 weeks PDMP PDMP Reviewed: Not Reviewed Attestations 2 Medical Necessity Statement*: Care expected to cross 2 midnights. Coding Level of Care Code Acute Code for [facility] Diagnoses Abnormal nuclear stress test R94.39 Coronary artery disease I25.10 NSTEMI (non-ST elevated myocardial infarction) I21.4 CHF exacerbation I50.9 Type 2 diabetes mellitus E11.9 Acute kidney injury superimposed on CKD N17.9; N18.9 Chronic anemia D64.9
--- NOTE | 2024-12-31 07:39 | P.PN_ITS ---
Subjective 2 Subjective: The patient was seen and examined. Patient states she is feeling okay. Patient still with edema. She is concerned about her liver disease. She denies nausea vomiting diarrhea headaches chest pain or shortness of breath. Medications: Reviewed: Yes Medication Review Details: Current Medications Acetaminophen (Acetaminophen 325 Mg Tablet) 650 mg PO Q6H PRN PRN Reason: Mild/Mod Pain Or Temp >/= 101 Albuterol/Ipratropium (Ipratropium-Albuterol 3 Ml Neb) 3 ml INHALATION Q6H.RESP KIMI Last Admin: 12/31/24 01:53 Dose: 3 ml Allopurinol (Allopurinol 100 Mg Tablet) 100 mg PO BID KIMI Last Admin: 12/30/24 18:09 Dose: 100 mg Aspirin (Aspirin 81 Mg Ec Tablet) 81 mg PO DAILY PRN PRN Reason: UNKNOWN Atorvastatin Calcium (Atorvastatin 10 Mg Tablet) 20 mg PO DAILY KIMI Last Admin: 12/30/24 07:51 Dose: 20 mg Budesonide (Budesonide 0.5 Mg/2 Ml Neb) 0.5 mg INHALATION BID.RESPIRATORY KIMI Last Admin: 12/30/24 20:45 Dose: 0.5 mg Duloxetine HCl (Duloxetine 60 Mg Capsule) 60 mg PO DAILY KIMI Last Admin: 12/30/24 07:51 Dose: 60 mg Epoetin Jovi-epbx (Epoetin Jovi-Epbx 10,000 Unit/Ml Sdv (Esrd)) 10,000 unit SUBCUT QMWF KIMI Last Admin: 12/29/24 15:17 Dose: 10,000 unit Furosemide (Furosemide 10 Mg/Ml Sdv 10ml) 60 mg IVP Q12H KIMI Last Admin: 12/30/24 20:43 Dose: 60 mg Gabapentin (Gabapentin 300 Mg Capsule) 300 mg PO TID KIMI Last Admin: 12/30/24 20:41 Dose: 300 mg Glucagon (Glucagon 1 Mg/Ml Kit 1 Ml) 1 mg IM ONCE PRN; Protocol PRN Reason: Adult Acute Hypoglycemia Nursing Prot. Heparin Sodium (Porcine) (Heparin 5,000 Unit/Ml Inj 1 Ml) 5,000 unit SUBCUT Q12H KIMI On Hold: 12/24/24 07:54 Last Admin: 12/23/24 23:01 Dose: 5,000 unit Dextrose (D5w) 500 mls @ 0 mls/hr IV ONCE PRN; Protocol PRN Reason: Adult Acute Hypoglycemia Prot Dextrose (D10w) 125 mls @ 750 mls/hr IV PRN PRN; Protocol PRN Reason: Adult Acute Hypoglycemia Nursing Protocol Dextrose (D10w) 250 mls @ 1,000 mls/hr IV PRN PRN; Protocol PRN Reason: Adult Acute Hypoglycemia Nursing Protocol Sodium Chloride (Sodium Chloride 0.9%) 1,000 mls @ 0 mls/hr IV .Q0M PRN PRN Reason: hypotension or symptomatic Albumin Human (Albumin) 12.5 gm in 50 mls @ 60 mls/hr IV PRN PRN PRN Reason: Hypotension and/or symptomatic Sodium Chloride (Sodium Chloride 0.9%) 1,000 mls @ 0 mls/hr IV .Q0M PRN PRN Reason: hypotension or symptomatic Albumin Human (Albumin) 12.5 gm in 50 mls @ 60 mls/hr IV PRN PRN PRN Reason: Hypotension and/or symptomatic Insulin Human Lispro (Insulin Lispro 100 Unit/1 Ml) 0 unit SUBCUT WM&BEDTIME [facility]; Protocol Last Admin: 12/30/24 20:43 Dose: 8 unit Lanolin (Lanolin Oint 7 Gm) 1 applic TOPICAL PRN PRN PRN Reason: DRYNESS Last Admin: 12/28/24 17:13 Dose: 1 applic Metoprolol Tartrate (Metoprolol Tartrate 25 Mg Tablet) 25 mg PO BID@0900,2100 [facility] Last Admin: 12/30/24 20:41 Dose: 25 mg Ondansetron HCl (Ondansetron 2 Mg/Ml Sdv 2 Ml) 4 mg IVP Q6H PRN PRN Reason: NAUSEA AND VOMITING Ondansetron HCl (Ondansetron 2 Mg/Ml Sdv 2 Ml) 4 mg IVP Q2M PRN PRN Reason: NAUSEA Pantoprazole Sodium (Pantoprazole Dr 40 Mg Tablet) 40 mg PO DAILY [facility] Last Admin: 12/30/24 07:51 Dose: 40 mg Vitals/I&O/Wt Last Vital Signs Temp 97.7 F 12/31/24 07:19 Pulse 75 12/31/24 07:19 Resp 17 12/31/24 07:19 BP 119/63 12/31/24 07:19 Pulse Ox 97 12/31/24 07:19 O2 Del Method BiPAP 12/31/24 04:00 O2 Flow Rate 1 12/30/24 07:53 FiO2 30 12/31/24 03:50 12/30/24 12/31/24 12/31/24 22:59 06:59 14:59 Intake Total 900 / 900 Output Total 3550 / 3550 Balance -2650 / -2650 Weight last 48 hrs Weight 97.432 kg Weight 97 kg Weight 95.164 kg Weight 97 kg Physical Exam 2 Narrative: Obese lady lying in bed no apparent distress. HEENT normocephalic with manage. Neck is supple Lungs: Bilateral good air movement Heart irregular, systolic murmur. Abdomen is soft nontender nondistended positive bowel sounds. Extremities 1-2+ edemea Neuro awake alert oriented x 3 Urinary Catheter Management: Lion: Cath Placed During This Visit: yes Reason for Continuing Indwelling Catheter: Accurate Measurement of Urinary Output in Critically Ill Patients Urinary Catheter Date of Insertion: 12/21/24 Urinary Catheter Time of Insertion: 09:58 Data 12/31/24 02:57 12/31/24 02:57 A&P Assessment and plan 1. Acute kidney injury superimposed on CKD: 79-year-old lady diabetes hypertension gout. Rheumatoid arthritis on infliximab and prednisone. Patient has chronic leukocytosis. Patient was admitted with acute on chronic renal failure and acute on chronic exacerbation of heart failure diastolic dysfunction. Patient has non-ST elevation CO also anemia. 1. CKD stage 4- baseline cr 1.8- 2mg/dl 1b. PUSHPA-patient has 3+ proteinuria on urinalysis and also has liver cirrhosis. Serologies are pending. Serum immunofixation is normal The patient has low C4 normal C3 - echocardiogram: LVEF 54%, grade 2 diastolic dysfunction, wall motion abnormality akinesis of the basal inferior wall, hypokinesis of the basal inferolateral wall. Mild mitral regurgitation, mild tricuspid regurgitation, mild pulmonary hypertension, dilated IVC. We are assuming this is cardiorenal syndrome. Patient is status post hemodialysis and ultrafiltration recently. Will hold today and assess for dialysis tomorrow. Patient will need a new access she has a femoral access for week. 2. She is postop day #1 status post PCI proximal to mid left circumflex artery LAD has diffuse disease and will need staged intervention 3. Right upper lung irregular pulmonary nodule Subsolid nodule left upper lobe: Please ensure she has pulmonary follow-up 4. Liver cirrhosis. Patient is concerned please discuss with her. 5. Anemia: Normal SPEP. Iron saturation of 20% ferritin of 797 Hemoglobin stable at 8.5 Leukocytosis: White cell count up to 23 5. Diabetic management as per hospitalist. 6. Normal TSH 7 use phosphorus binder Medications reviewed. The patient was seen and examined using A/V equipment with the aid of a nurse. The patient consents to telehealth and to dialysis. Plan: Patient has obesity, obstructive sleep apnea, cirrhosis with nodular liver on imaging, acute on chronic renal failure likely end-stage renal disease. Monitor if any renal recovery. Status post cardiac stents monitor cardiac function PDMP PDMP Reviewed: Not Reviewed Attestations 2 Medical Necessity Statement*: Acute on chronic renal failure cirrhosis volume overload coronary artery disease obstructive sleep apnea Time Spent in Patient Care: Greater than 35 minutes (>than 50% of time spent in counselling and/or direct pt care on unit) . Coding Level of Care Code Acute Code for [facility] Fwd Diagnoses Acute kidney injury superimposed on CKD N17.9; N18.9
--- NOTE | 2024-12-31 09:20 | PC.NURSE ---
Dr Hughes ordered asprin 81mg and plavix 75mg to start now.
[2024-12-31] MEDS: ATORVASTATIN 10 MG TABLET 20 MG PO (09:22)
[2024-12-31] MEDS: FUROsemide 10 mg/mL SDV 10mL 60 MG IVP ×2 (10:19→21:25)
--- NOTE | 2024-12-31 11:15 | P.PN_ITS ---
Subjective 2 Subjective: Seen this morning. Patient status post cath with 2 drug-eluting stents She states she is worried about her liver cirrhosis. Unsure if she wants to continue with dialysis. Overall feeling better however. Vitals/I&O/Wt Last Vital Signs Temp 97.7 F 12/31/24 07:19 Pulse 85 12/31/24 08:50 Resp 18 12/31/24 08:50 BP 119/63 12/31/24 07:19 Pulse Ox 92 12/31/24 08:50 O2 Del Method Room Air 12/31/24 08:50 O2 Flow Rate 1 12/30/24 07:53 FiO2 30 12/31/24 03:50 12/30/24 12/31/24 12/31/24 22:59 06:59 14:59 Intake Total 900 / 900 360 / 360 Output Total 3550 / 3550 Balance -2650 / -2650 360 / 360 Weight last 48 hrs Weight 97.432 kg Weight 97 kg Weight 95.164 kg Weight 97 kg Physical Exam 2 Const: COMMON NORMALS: no acute distress and patient oriented x3 Resp: COMMON NORMALS: clear to auscultation bilaterally AUSCULTATION: clear to auscultation bilaterally OTHER: clear to auscultation b/l , no wheezes or ronchi, Cardio: COMMON NORMALS: regular rate, regular rhythm, S1 normal heart sound present and S2 normal heart sound present RATE: regular rate RHYTHM: r egular rhythm HEART SOUNDS: S1 normal heart sound present and S2 normal heart sound present GI: COMMON NORMALS: Normal to inspection, nondistended, normoactive bowel sounds present and non-tender Extremity: COMMON NORMALS: no pedal edema NARRATIVE EXTREMITY EXAM: 1-2+ pitting edema Neuro: COMMON NORMALS: patient oriented x3, CN's II-XII intact bilaterally and moves all extremities Psych: COMMON NORMALS: mental status grossly normal Urinary Catheter Management: Lion: Cath Placed During This Visit: yes Reason for Continuing Indwelling Catheter: Accurate Measurement of Urinary Output in Critically Ill Patients Urinary Catheter Date of Insertion: 12/21/24 Urinary Catheter Time of Insertion: 09:58 Data 12/31/24 02:57 12/31/24 02:57 A&P Assessment and plan 1. Acute hypoxemic respiratory failure: 2. Anasarca: 3. Acute kidney injury superimposed on CKD: 4. High risk medication use: 5. Leukocytosis: 6. Seronegative rheumatoid arthritis: 7. CHF exacerbation: 8. Acute respiratory distress: 9. Pneumonia: 10. NSTEMI (non-ST elevated myocardial infarction): 11. Acute anemia: 12. Congestive heart failure: 13. Coronary artery disease: 14. Benign essential hypertension with target blood pressure below 140/90: 15. Increased anion gap metabolic acidosis: 16. Sepsis: 17. Goals of care, counseling/discussion: Plan: Acute hypoxic hypercarbic respiratory failure - Multifactorial - From systolic CHF exacerbation - From multifocal pneumonia -Acute respiratory distress CT chest CT/[place] [id number] IMPRESSION: 1. Small bilateral pleural effusions with atelectatic changes in the lung bases. 2. Multiple prominent mediastinal lymph nodes measuring up to 10 mm in short axis. 3. There is an irregular pulmonary nodule in the right upper lobe measuring 16 x 14 mm (series 5, image 18) and a subsolid nodule in the left upper lobe measuring up to 18 x 17 mm (series 5, image 24). While this may represent multifocal multi lobar pneumonia true pulmonary nodules can not be excluded and in the absence of a known primary malignancy the Fleischner -Immunocompromise state -BNP over 20,000 this morning Plan -Moved to ICU - Continue BiPAP therapy as needed during the day, scheduled during the night - Switch to Lasix drip, currently at 20 mg/hr, 1 dose metolazone -Monitor BMP every 4hours - Monitor urine output, monitor creatinine - Vancomycin - Cefepime broaden to meropenem -DuoNeb - Blood cultures, sputum culture - Monitor respiratory status closely - Full code - Heparin for DVT prophylaxis Multifocal pneumonia, as above Sepsis - Secondary to pneumonia Systolic CHF exacerbation - Cardiac echo ordered IVC The inferior vena cava is dilated measuring 2.1 cm with no inspiratory collapse consistent with increased right atrial pressure. CONCLUSIONS 1. Left ventricular segmental wall motion abnormality in the basal inferior and inferolateral wall segments with overall normal ejection fraction of 54%. 2. Mild mitral valve regurgitation 3. Stage II left ventricular diastolic dysfunction 4. Mild concentric left ventricular hypertrophy 5. Mild pulmonary hypertension NSTEMI - No chest pain complaints - Aspirin, statin - History of cardiac cath 03/2020 Diagnostic Findings * No significant disease noted in the Left Main, LAD, Circumflex, or RCA coronary arteries. * Mid Circumflex Coronary Artery: has lesion. * Coronary angiography shows right dominance. * The left main is a medium caliber vessel with minimal intimal irregularities. * The left anterior descending artery is a relatively small to medium caliber vessel with diffuse disease, lesions ranging anywhere from 30 to 50%. The distal artery is a small caliber vessel which wrap around the LV apex minimally. The artery gives off multiple diagonal branches. The second diagonal branch was found to have 40 to 50% diffuse narrowing in the proximal segment. The other diagonal branches were found to have mild diffuse disease. * The circumflex artery is a medium to large caliber vessel which was found to have around 40% proximal segmental narrowing. The first obtuse marginal branch is a relatively small caliber vessel with 50 to 60% diffuse narrowing. Right after the second obtuse marginal branch, the artery appears to have around 50 to 60% tubular narrowing with some haziness. No other significant stenotic lesions were seen. * The right coronary artery is a medium caliber dominant vessel which also was found to have mild to moderate diffuse disease in the proximal and distal segment. The lesions were ranging anywhere from 30 to 50%. The PDA branch was found to have a proximal around 40% narrowing involving the ostium. No other significant stenotic lesions were noted. - Cardiac echo as above - Cardiology consulted Acute kidney injury -Creatinine 3.9 -Component of sepsis -Urine output 3 L -With hyperkalemia, hyponatremia, metabolic acidosis - Monitor urine output, monitor creatinine - Nephrology consulted - Patient declines dialysis Increased anion gap and metabolic acidosis - From acute renal failure, sepsis Liver cirrhosis? Etiology unclear Type 2 diabetes mellitus, low-dose sliding scale Acute on chronic anemia, monitor - Hemoglobin 6.8, will transfuse 1 unit PRBC DVT prophylaxis: Heparin 5000 subcutaneously every 12 hours, on hold due to anemia, SCDs Full code Continue IV antibiotics, Lasix drip, transfuse 1 unit. 12/25/2024 Consulted neurosurgery for temporary dialysis catheter placement. Patient will require dialysis today. Nephrology following and consulted. Hemoglobin 7.9 this morning most likely secondary to iron deficiency anemia secondary to CKD. Patient is significantly fluid overloaded. Requires dialysis for fluid removal. proBNP greater than 70,000. Procalcitonin 1.56. CT abdomen pelvis on 12/20 showed multifocal pneumonia. Also has irregular pulmonary nodule in right upper lobe measuring 16 x 14 mm. Patient does have cirrhotic liver. Her shortness of breath is multifactorial secondary to renal failure, CHF, multifocal pneumonia. Eventually we need interventional pulmonary consult for lymph node biopsy if patient agreeable. She is on infliximab every 30 days. Continue patient on Vanco and meropenem. 12/26/2024 Patient undergoing dialysis at this time. She does have evidence of liver cirrhosis on her CT scan. Unclear if patient was aware of this diagnosis prior. IVC dilated 2.1 cm on echo. Does have wall motion abnormalities in basal inferior and inferolateral wall segments. EF 54%. Cardiology consulted. Plan for stress test in AM. After first session of dialysis 3 L was removed. Subjectively shortness of breath is slightly better. Undergoing second session of dialysis today. Will check venous Dopplers bilateral lower extremities ? Due to elevated creatinine will check VQ scan and check D-dimer. ? Will do abdominal ultrasound to assess for ascites. Patient may require paracentesis if ascites present. This may be causing restrictive phenomenon for lungs contributing to her shortness of breath. ? She does have multifocal pneumonia for which she is on bank and meropenem at this time. ? I will discuss with pulmonology as well however I have been told there is no one on-call today. ? Will continue to monitor patient and complete above workup. ? I discussed with patient briefly this morning regarding her lung nodule however she stated that she is 79 years old and probably will not undergo further workup for that at this time however would like to discuss with me at a later time. ? Hemoglobin 7.7 this morning. ? Check iron panel, ferritin, TIBC percent saturation ? White count 19,000 today. Has been persistently elevated in last few visits. Unclear if this is secondary to infection versus possible underlying leukemia. Will check lymphoma leukemia profile and check peripheral smear. ? I will complete antibiotics for 10 days total to cover for her multifocal pneumonia ? Continue to monitor in ICU. ? Appreciate cardiology and nephrology recommendations 12/27/2024 Had a long discussion with patient regarding goals of care today. She states she does not want a feeding tube. Ideally does not want long-term dialysis however she may consider it. She states that she has a huge transportation problem as she lives in [place]. She is worried how will she get to dialysis if that is what she ends up needing. Discussed with her the potential of a kidney biopsy, lung biopsy for nodule going forward and had a discussion regarding how aggressive she wants to be with her care. She states she will not have any kind of interventional procedures for example biopsy. She may be agreeable to a cardiac stress test however she will think about it. She would like to be DNR/DNI. She states if anything happens let me go. She states she has a power of ip technology transactions attorney and her nephew's name. Her niece has had a stroke and therefore patient states she is pretty much on her own. D-dimer 4.75. VQ scan ability for PE. Hemoglobin 8.1 today. Nephrology following. Check iron studies. subjectively feeling better And iron profile C3-C4 CH 50 glomerular basement membrane antibody leukemia lymphoma profile, peripheral blood smear ANCA pending EPO ordered today. Last day of antibiotic December 28. Nephrology following appreciate recommendations 12/28/2024 seen today hb 8.20 this am plan for holding dialysis today He is unsure if she wants to do permanent dialysis or not. Nephrology and I both had a long discussion with her. We will discuss with director of social services regarding transportation options for the patient. She may require rehab at discharge. We will move to cardiac stepdown unit today. Continue to monitor kidney function. Heart rate is better controlled at this time. Cardiology following 12/29/2024 Hemoglobin 8.8 today. Patient has completed antibiotics. She is agreeable to dialysis Plan for coronary angiogram with immediate dialysis right after. Patient agreeable. Cardiology to schedule angiogram most likely for tomorrow. Discussed with cardiology. Plan for dialysis today She is down to 1 L nasal cannula. She states she is feeling a lot better. EF 34%,Medium sized area of inferior infarction with a medium sized area of herman- infarct ischemia in the inferior apex and inferolateral wall segments May transfer to [facility]. 12/30/2024 Hemoglobin 8.4 Plan for coronary angiogram today and dialysis right after Stress test was positive Patient has completed antibiotics Continue current medications as ordered Continue to monitor in CICU. Patient agreeable for permanent dialysis Will plan for PermCath on Wednesday. 12/31/2024 Patient will need eventual PermCath placement for permanent dialysis. She is status post 2 stents after coronary angiogram 12/30. Severe proximal to mid Left circumflex artery stenosis s/p PCI with 2 stents. 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 Proximal to mid LAD has 70% diffuse disease. Medical therapy for now. If tolerates antiplatelet/anticoagulation agents and is symptomatic, will consider PCI as a staged procedure Loaded with Aspirin and plavix. Continue cardiology, nephrology recommendations appreciated GI referral at [facility] will go to rehab at [facility] PDMP PDMP Reviewed: Not Reviewed Attestations 2 Medical Necessity Statement*: Coronary angiogram today Diagnoses Acute hypoxemic respiratory failure J96.01 Anasarca R60.1 Acute kidney injury superimposed on CKD N17.9; N18.9 High risk medication use Z79.899 Leukocytosis D72.829 Seronegative rheumatoid arthritis M06.00 CHF exacerbation I50.9 Acute respiratory distress R06.03 Pneumonia J18.9 NSTEMI (non-ST elevated myocardial infarction) I21.4 Acute anemia D64.9 Congestive heart failure I50.9 Coronary artery disease I25.10 Benign essential hypertension with target blood pressure below 140/90 I10 Increased anion gap metabolic acidosis E87.29 Sepsis A41.9 Goals of care, counseling/discussion Z71.89
[2024-12-31] MEDS: heparin 5,000 unit/mL INJ 1 mL 5000 UNIT SUBCUT (12:09)
[2024-12-31 21:54] LABS: BCR ABL1 (IS) 0.000 (0.000); BCR ABL1/ALB1 % 0.000 (0.000); P190 BCR ALB1 NOT DETECTED; P190 BCR ALB1 Yes Test Yes; P210 BCR ALB1 NOT DETECTED; P210 BCR ALB1 Yes Test Yes; Source blood
[2025-01-01] VITALS (21 sets, daily range): BP systolic 108–151; BP diastolic 55–69; PULSE 73–90; RESP 16–32; TEMP 36.1–37; O2SAT 90–98
[2025-01-01] MEDS: heparin 5,000 unit/mL INJ 1 mL 5000 UNIT SUBCUT ×2 (00:03→14:36)
[2025-01-01 05:05] LABS: Hematocrit 28.5 % (36-47); Hemoglobin 8.60 g/dL (11.27-16.99); Mean Corpuscular HGB Conc 30.2 g/dL (30-55); Mean Corpuscular Hemoglobin 27.3 pg (27-33); Mean Corpuscular Volume 90.5 fl (85-98); Nucleated Red Blood Cells % 0 %; Platelet Count 331 10^3/cmm (157-399); Red Blood Count 3.15 10^6/uL (3.85-5.65); White Blood Count 18.03 10^3/uL (3.29-11.43)
[2025-01-01 05:40] LABS: Alanine Aminotransferase 16 U/L (0-33); Albumin Level 2.9 g/dL (3.5-5.2); Alkaline Phosphatase 101 U/L (35-105); Anion Gap 19.4 (5-19); Aspartate Amino Transferase 21 U/L (0-32); Blood Urea Nitrogen 67 mg/dL (8-23); Calcium 9.1 mg/dL (8.5-10.5); Carbon Dioxide 23 mmol/L (22-29); Chloride 94 mmol/L (98-107); Creatinine Clr Calc Pharmacy 12.0591; Globulin 3.9 g/dL (1.3-4.6); Glucose 131 mg/dL (65-115); Magnesium 1.9 mg/dL (1.7-2.3); Osmolality Calculated 297 mOsm/kg (285-295); Potassium 3.4 mmol/L (3.5-5.1); Sodium 133 mmol/L (136-145); Total Protein 6.8 g/dL (6.6-8.7)
--- NOTE | 2025-01-01 07:00 | P.PN_ITS ---
Subjective 2 Subjective: No evidence of renal recovery, she needs tunneled dialysis catheter. Vitals/I&O/Wt Last Vital Signs Temp 97.8 F 01/01/25 03:48 Pulse 77 01/01/25 04:10 Resp 18 01/01/25 03:48 BP 120/60 01/01/25 03:48 Pulse Ox 97 01/01/25 04:10 O2 Del Method BiPAP 01/01/25 03:48 O2 Flow Rate 1 12/30/24 07:53 FiO2 24 01/01/25 04:10 12/31/24 01/01/25 01/01/25 22:59 06:59 14:59 Intake Total 620 / 1460 Output Total 1250 / 1250 500 / 1750 Balance -630 / 210 -500 / -290 Weight last 48 hrs Weight 205 lb 9.6 oz Weight 214 lb 12.8 oz Weight 213 lb 13.574 oz Physical Exam 2 Neck/C-Spine: OTHER: Normal chest and upper GI: OTHER: Abdomen soft nontender nondistended Extremity: OTHER: Left groin catheter in place no evidence of infection Urinary Catheter Management: Lion: Cath Placed During This Visit: yes Reason for Continuing Indwelling Catheter: Accurate Measurement of Urinary Output in Critically Ill Patients Urinary Catheter Date of Insertion: 12/21/24 Urinary Catheter Time of Insertion: 09:58 Data 01/01/25 04:38 01/01/25 04:38 A&P Assessment and plan 1. Goals of care, counseling/discussion: 2. Acute kidney injury superimposed on CKD: Plan: Is a 79-year-old female who presented with fluid overload and Colonaid kidney disease has progressing to end-stage renal disease and requires long-term dialysis. I have been asked to proceed with a tunneled dialysis catheter placement. Unfortunately over the last 72 hours patient got the stress test that was positive and ended up having percutaneous intervention with placement of 2 drug-eluting stents. This will make her a high risk for bleeding as we cannot stop the dual antiplatelet therapy for the risk of. Stent thrombosis and myocardial infarction I discussed all risk benefits of the tunneled dialysis catheter placement including the risk of bleeding, infection., Injury to the great vessels or the heart causing major bleeding, hypotensive shock, , pneumothorax requiring a tube thoracostomy, need for additional interventions, long-term catheter failure. Patient shows understanding she is agreeable to proceed, she understand that there is an increased risk for bleeding as she is anticoagulated. Patient will be kept n.p.o. will proceed to the OR this afternoon PDMP PDMP Reviewed: Not Reviewed Attestations 2 Medical Necessity Statement*: Per medical team Coding Level of Care Code Acute Code for Chg Fwd Diagnoses Goals of care, counseling/discussion Z71.89 Acute kidney injury superimposed on CKD N17.9; N18.9
--- NOTE | 2025-01-01 08:43 | SC_ITS ---
WS: [id number] C-ARM RADIOGRAPHS CHEST; 3 IMAGES HISTORY: for dialysis catheter COMPARISON: None available. Intraoperative imaging during dialysis catheter placement. Tip of the catheters project over the RIGHT heart. SC/C-arm FL for CVA [id number] IMPRESSION: Intraoperative imaging during dialysis catheter placement.
[2025-01-01 09:24] LABS: Iron 28 ug/dL (37-145); Total Iron Binding Capacity 140 mcg/dl; Unsaturated Iron Binding 112 ug/dL (112-347)
[2025-01-01] MEDS: ATORVASTATIN 10 MG TABLET 20 MG PO (09:37)
[2025-01-01] MEDS: FUROsemide 10 mg/mL SDV 10mL 60 MG IVP (09:37)
[2025-01-01 09:40] LABS: Procalcitonin 0.73 ng/mL (0-0.5); Vitamin B12 1965 pg/mL (232-1245)
--- NOTE | 2025-01-01 09:46 | P.PN_ITS ---
Subjective 2 Subjective: The patient was seen and examined. She is for permacat today. She is anxious. She is worried about her liver disease. She has some edema that is improving. She is urinating well. Denies nausea or vomiting. Medications: Reviewed: Yes Medication Review Details: Current Medications Acetaminophen (Acetaminophen 325 Mg Tablet) 650 mg PO Q6H PRN PRN Reason: Mild/Mod Pain Or Temp >/= 101 Albuterol/Ipratropium (Ipratropium-Albuterol 3 Ml Neb) 3 ml INHALATION Q6H.RESP KIMI Last Admin: 01/01/25 07:38 Dose: 3 ml Allopurinol (Allopurinol 100 Mg Tablet) 100 mg PO BID KIMI Last Admin: 01/01/25 09:37 Dose: 100 mg Aspirin (Aspirin 81 Mg Ec Tablet) 81 mg PO DAILY [facility] Last Admin: 12/31/24 10:19 Dose: 81 mg Atorvastatin Calcium (Atorvastatin 10 Mg Tablet) 20 mg PO DAILY KIMI Last Admin: 01/01/25 09:37 Dose: 20 mg Budesonide (Budesonide 0.5 Mg/2 Ml Neb) 0.5 mg INHALATION BID.RESPIRATORY KIMI Last Admin: 01/01/25 07:38 Dose: 0.5 mg Clopidogrel Bisulfate (Clopidogrel 75 Mg Tablet) 75 mg PO DAILY KIMI Last Admin: 12/31/24 10:19 Dose: 75 mg Duloxetine HCl (Duloxetine 60 Mg Capsule) 60 mg PO DAILY [facility] Last Admin: 01/01/25 09:37 Dose: 60 mg Epoetin Jovi-epbx (Epoetin Jovi-Epbx 10,000 Unit/Ml Sdv (Esrd)) 10,000 unit SUBCUT QMWF KIMI Last Admin: 12/29/24 15:17 Dose: 10,000 unit Furosemide (Furosemide 10 Mg/Ml Sdv 10ml) 60 mg IVP Q12H KIMI Last Admin: 01/01/25 09:37 Dose: 60 mg Gabapentin (Gabapentin 300 Mg Capsule) 300 mg PO TID KIMI Last Admin: 01/01/25 09:37 Dose: 300 mg Glucagon (Glucagon 1 Mg/Ml Kit 1 Ml) 1 mg IM ONCE PRN; Protocol PRN Reason: Adult Acute Hypoglycemia Nursing Prot. Heparin Sodium (Porcine) (Heparin 5,000 Unit/Ml Inj 1 Ml) 5,000 unit SUBCUT Q12H KIMI Last Admin: 01/01/25 00:03 Dose: 5,000 unit Dextrose (D5w) 500 mls @ 0 mls/hr IV ONCE PRN; Protocol PRN Reason: Adult Acute Hypoglycemia Prot Dextrose (D10w) 125 mls @ 750 mls/hr IV PRN PRN; Protocol PRN Reason: Adult Acute Hypoglycemia Nursing Protocol Dextrose (D10w) 250 mls @ 1,000 mls/hr IV PRN PRN; Protocol PRN Reason: Adult Acute Hypoglycemia Nursing Protocol Sodium Chloride (Sodium Chloride 0.9%) 1,000 mls @ 0 mls/hr IV .Q0M PRN PRN Reason: hypotension or symptomatic Albumin Human (Albumin) 12.5 gm in 50 mls @ 60 mls/hr IV PRN PRN PRN Reason: Hypotension and/or symptomatic Insulin Human Lispro (Insulin Lispro 100 Unit/1 Ml) 0 unit SUBCUT WM&BEDTIME [facility]; Protocol Last Admin: 01/01/25 08:56 Dose: Not Given Lanolin (Lanolin Oint 7 Gm) 1 applic TOPICAL PRN PRN PRN Reason: DRYNESS Last Admin: 12/28/24 17:13 Dose: 1 applic Metoprolol Tartrate (Metoprolol Tartrate 25 Mg Tablet) 25 mg PO BID@0900,2100 [facility] Last Admin: 01/01/25 09:37 Dose: 25 mg Ondansetron HCl (Ondansetron 2 Mg/Ml Sdv 2 Ml) 4 mg IVP Q6H PRN PRN Reason: NAUSEA AND VOMITING Ondansetron HCl (Ondansetron 2 Mg/Ml Sdv 2 Ml) 4 mg IVP Q2M PRN PRN Reason: NAUSEA Pantoprazole Sodium (Pantoprazole Dr 40 Mg Tablet) 40 mg PO DAILY [facility] Last Admin: 01/01/25 09:37 Dose: 40 mg Vitals/I&O/Wt Last Vital Signs Temp 97.8 F 01/01/25 08:00 Pulse 85 01/01/25 08:00 Resp 20 H 01/01/25 08:00 BP 126/65 01/01/25 08:00 Pulse Ox 92 01/01/25 08:00 O2 Del Method Room Air 01/01/25 07:39 O2 Flow Rate 1 12/30/24 07:53 FiO2 24 01/01/25 04:10 0801/01/25 01/01/25 22:59 06:59 14:59 Intake Total 620 / 1460 Output Total 1250 / 1250 500 / 1750 Balance -630 / 210 -500 / -290 Weight last 48 hrs Weight 93.259 kg Weight 97.432 kg Weight 97 kg Physical Exam 2 Narrative: Obese lady lying in bed no apparent distress. HEENT normocephalic with manage. Neck is supple Lungs: Bilateral good air movement Heart irregular, systolic murmur. Abdomen is soft nontender nondistended positive bowel sounds. Extremities trace to 1+ edemea Neuro awake alert oriented x 3 Urinary Catheter Management: Lion: Cath Placed During This Visit: yes Reason for Continuing Indwelling Catheter: Accurate Measurement of Urinary Output in Critically Ill Patients Urinary Catheter Date of Insertion: 12/21/24 Urinary Catheter Time of Insertion: 09:58 Data 01/01/25 04:38 01/01/25 04:38 A&P Assessment and plan 1. Acute kidney injury superimposed on CKD: 79-year-old lady diabetes hypertension gout. Rheumatoid arthritis on infliximab and prednisone. Patient has chronic leukocytosis. Patient was admitted with acute on chronic renal failure and acute on chronic exacerbation of heart failure diastolic dysfunction. Patient has non-ST elevation [place] also anemia. 1. CKD stage 4- baseline cr 1.8- 2mg/dl 1b. PUSHPA-patient has 3+ proteinuria on urinalysis and also has liver cirrhosis. Serologies are pending. Serum immunofixation is normal The patient has low C4 normal C3 - echocardiogram: LVEF 54%, grade 2 diastolic dysfunction, wall motion abnormality akinesis of the basal inferior wall, hypokinesis of the basal inferolateral wall. Mild mitral regurgitation, mild tricuspid regurgitation, mild pulmonary hypertension, dilated IVC. We are assuming this is cardiorenal syndrome. Patient is status post hemodialysis and ultrafiltration recently. - Surgery to remove femoral catheter today and place permacath. Will continue to monitor for renal recovery. Will decrease Lasix from place potassium. 2. She is postop day #2 status post PCI proximal to mid left circumflex artery LAD has diffuse disease and will need staged intervention 3. Right upper lung irregular pulmonary nodule Subsolid nodule left upper lobe: Please ensure she has pulmonary follow-up 4. Liver cirrhosis. Patient is concerned about the etiology and significance of her disease. As per hospitalist. 5. Anemia: Normal SPEP. Iron saturation of 20% ferritin of 797 Hemoglobin stable at 8.5 Leukocytosis: White cell count slowly improving to 18 5. Diabetic management as per hospitalist. 6. Normal TSH 7 use phosphorus binder 8. Blood pressure stable. 9. Non-ST elevation NJ Medications reviewed. The patient was seen and examined using A/V equipment with the aid of a nurse. The patient consents to telehealth and to dialysis. Plan: Femoral catheter being removed monitor renal recovery. Likely needs a permacath PDMP PDMP Reviewed: Not Reviewed Attestations 2 Medical Necessity Statement*: Anemia, NSTEMI, acute on chronic renal failure, cirrhosis Time Spent in Patient Care: 16 - 35 minutes (>than 50% of time sp ent in counselling and/or direct pt care on unit) . Coding Level of Care Code Acute Code for Chg Fwd Diagnoses Acute kidney injury superimposed on CKD N17.9; N18.9
--- NOTE | 2025-01-01 09:54 | PC.SOCIAL ---
IMM Update Pg. 2 of IMM updated and reviewed with patient, who verbalized understanding. Copy provided at bedside.
[2025-01-01 10:02] LABS: Leukemia Profile (BBPL) See Report
--- NOTE | 2025-01-01 10:02 | PC.NURSE ---
Provider is updated that patient is going to surgery at 1200 today, nursing asked if aspirin 81mg, plavix 75mg, and heparin 5000 should be held until after surgery. Provider ordered to hold until after surgery.
[2025-01-01] MEDS: ferric gluconate 125 MG in sodium chloride 0.9% (100 ml) 100 ML 110 MG IV (10:20)
--- NOTE | 2025-01-01 10:23 | P.PN_ITS ---
<Statement entered by Juan Daniel Carbajal MD - 01/01/25 14:57> Patient was evaluated and cared for in conjunction with an advanced practice practitioner. I personally saw the patient and reviewed the chart and all pertinent data. I discussed the patient in detail with the advanced practice practitioner. Please see their note for complete assessment and agreed upon plan of care for the patient. Subjective 2 Subjective: She is feeling well, no shortness of breath or chest pain. Some abdominal distention still present, abdomen is soft. Vitals/I&O/Wt Last Vital Signs Temp 97.8 F 01/01/25 08:00 Pulse 85 01/01/25 08:00 Resp 20 H 01/01/25 08:00 BP 126/65 01/01/25 08:00 Pulse Ox 92 01/01/25 08:00 O2 Del Method Room Air 01/01/25 07:39 O2 Flow Rate 1 12/30/24 07:53 FiO2 24 01/01/25 04:10 12/31/24 01/01/25 01/01/25 22:59 06:59 14:59 Intake Total 620 / 1460 Output Total 1250 / 1750 500 / 1750 Balance -630 / -290 -500 / -290 Weight last 48 hrs Weight 205 lb 9.6 oz Weight 214 lb 12.8 oz Weight 213 lb 13.574 oz Physical Exam 2 Const: COMMON NORMALS: no acute distress and patient oriented x3 GENERAL APPEARANCE: cooperative and comfortable ORIENTATION/CONSCIOUSNESS: Yes awake, Yes oriented to person, Yes oriented to place and Yes oriented to time Chest: COMMONS NORMALS: normal inspection of the chest and normal palpation of entire chest wall CHEST: Yes Symmetrical chest wall rise Resp: COMMON NORMALS: normal respiratory effort, No retractions, No use of accessory muscles and clear to auscultation bilaterally (upper) EFFORT & INSPECTION: Yes symmetric chest movement AUSCULTATION: clear to auscultation bilaterally (upper) and crackles (bases) Laterality: bilateral and posterior Cardio: COMMON NORMALS: regular rate, regular rhythm, S1 normal heart sound present, S2 normal heart sound present, No gallops present (Cardio), No clicks present (Cardio), No murmurs present (Cardio) and No rub (Cardio) RATE: r egular rate RHYTHM: regular rhythm HEART SOUNDS: S1 normal heart sound present and S2 normal heart sound present PERIPHERAL PULSES: radial pulses present Extremity: GENERAL: Yes edema (trace to 1+ pitting edema bilat LE below knee) Neuro: COMMON NORMALS: patient oriented x3 and moves all extremities S ENSORIUM/ORIENTATION: Yes oriented to person, Yes oriented to place and Yes oriented to time Urinary Catheter Management: Lion: Cath Placed During This Visit: yes Reason for Continuing Indwelling Catheter: Accurate Measurement of Urinary Output in Critically Ill Patients Urinary Catheter Date of Insertion: 12/21/24 Urinary Catheter Time of Insertion: 09:58 Data 01/01/25 04:38 01/01/25 04:38 A&P Assessment and plan 1. Coronary artery disease: 2. CHF exacerbation: 3. Abnormal nuclear stress test: 4. NSTEMI (non-ST elevated myocardial infarction): 5. Type 2 diabetes mellitus: 6. Acute kidney injury superimposed on CKD: 7. Chronic anemia: Plan: Patient is stable from cardiac standpoint. Continue aspirin and Plavix. High intensity statin therapy LAD has residual disease. Will likely need staged PCI in 2-4 weeks She is on Lasix 60mg BID, getting a permacath placed today. She had 1700 mL urine output for the last 24 hours. PDMP PDMP Reviewed: Not Reviewed Attestations 2 Medical Necessity Statement*: per hospitalist Coding Level of Care Code Acute Code for [facility] Diagnoses Coronary artery disease I25.10 CHF exacerbation I50.9 Abnormal nuclear stress test R94.39 NSTEMI (non-ST elevated myocardial infarction) I21.4 Type 2 diabetes mellitus E11.9 Acute kidney injury superimposed on CKD N17.9; N18.9 Chronic anemia D64.9
[2025-01-01 10:27] LABS: Ferritin 833 ng/mL (15-150)
--- NOTE | 2025-01-01 11:57 | PC.NURSE ---
Patient left [facility] for surgery at 1145.
--- NOTE | 2025-01-01 12:24 | ANES.PREANE2 ---
Pre-Anesthetic Assessment Height/Weight: Height 1.65 m Weight 93.259 kg Temp Pulse Resp BP Pulse Ox O2 Del Method O2 Flow Rate 98.5 F 83 18 136/68 96 Room Air 1 01/01/25 12:00 01/01/25 12:00 01/01/25 12:00 01/01/25 12:00 01/01/25 12:00 01/01/25 12:00 12/30/24 07:53 FiO2 24 01/01/25 04:10 Preop Diagnosis: Chest pain/ abnormal stress test Operation Date: 12/30/24 07:00 Proposed Procedures p Cardiac Catheterization(Left) - Karlo Hughes M.D Operation Date: 01/01/25 12:45 Proposed Procedures p Insertion of tunneled dialysis catheter(Not Applicable) - Phillip Reyes MD Familial anesthetic complications: Slow to wake Last intake: > 8 hrs Social No alcohol and No tobacco Exam alert, oriented x 3, clear to auscultation bilaterally and regular rate & rhythm Airway Mallampati: Class II CV/HEM Coronary Artery Disease (recent stents on plavix unable to hold), Congestive Heart Failure and Myocardial Infarction PUSHPA on dialysis Metabolic Diabetes Mellitus Anesthetic Plan ASA status: 4 Anesthesia: MAC Risk of > 500 ml blood loss (7ml/kg in children): No Other Pertinent Information patient informed she would be light sedation and may likely experience intraoperative recall Medications/Allergies Home Medications ?Medication ?Instructions ?Recorded ?Confirmed ?Last Taken ?Type aspirin 81 mg tablet,delayed 81 mg PO DAILY PRN UNKNOWN 03/31/20 12/22/24 12/21/24 History release metoprolol tartrate 50 mg tablet 50 mg PO BID 03/31/20 12/22/24 12/21/24 08:00 History gabapentin 300 mg capsule 300 mg PO TID 01/07/22 12/22/24 Unknown History AFO to right #1 ea 06/17/22 12/22/24 Unknown Rx infliximab-abda 100 mg intravenous 100 mg IV Q30D 08/19/22 12/22/24 Unknown History solution (Renflexis) nebulizers #1 ea 05/21/23 12/22/24 Unknown Rx mupirocin 2 % topical ointment 1 applic topical BID #22 grams 07/27/23 12/22/24 Unknown Rx amlodipine 10 mg tablet 10 mg PO DAILY 07/25/24 12/22/24 12/21/24 08:00 History allopurinol 100 mg tablet 100 mg PO BID #180 tabs 12/12/24 12/22/24 12/21/24 07:00 Rx Lactobacillus acidophilus and 1 cap PO DAILY 12/22/24 12/22/24 12/21/24 History rhamnosus 15 billion cell capsule (Probiotic) albuterol sulfate 90 mcg/actuation See Rx Instructions .Route .COMPLEX 12/22/24 12/22/24 Unknown History aerosol inhaler duloxetine 60 mg capsule,delayed 60 mg PO DAILY 12/22/24 12/22/24 12/21/24 08:00 History release furosemide 40 mg tablet 40 mg PO DAILY 12/22/24 12/22/24 Unknown History insulin aspart U-100 100 unit/mL 24 unit SUBCUT TID 12/22/24 12/22/24 12/21/24 08:00 History (3 mL) subcutaneous pen (Novolog FlexPen U-100 Insulin aspart) insulin degludec 100 unit/mL (3 60 unit SUBCUT DAILY 12/22/24 12/22/24 12/21/24 07:00 History mL) subcutaneous pen (Tresiba FlexTouch U-100 insulin) mecobalamin (vitamin B12) 1,000 1,000 mcg PO DAILY 12/22/24 12/22/24 12/20/24 History mcg chewable tablet (B12 Active) oxycodone 20 mg tablet See Rx Instructions .Route .COMPLEX 12/22/24 12/22/24 Unknown History sour castillo extract 1,000 mg 1,000 mg PO DAILY 12/22/24 12/22/24 12/20/24 History capsule (Tart Castillo Extract) tizanidine 4 mg tablet See Rx Instructions .Route .COMPLEX 12/22/24 12/22/24 Unknown History turmeric 400 mg capsule 400 mg PO DAILY 12/22/24 12/22/24 12/20/24 History Allergies Allergy/AdvReac Type Severity Reaction Status Date / Time latex Allergy Mild rash Verified 11/07/24 09:49 Penicillins Allergy Mild rash Verified 11/07/24 09:49 Sulfa (Sulfonamide Allergy Mild rash Verified 11/07/24 09:49 Antibiotics) sulindac Allergy Mild rash Verified 11/07/24 09:49 doxycycline Allergy ADR-Itching Verified 11/07/24 09:49 naproxen Allergy rash Verified 11/07/24 09:49 Current Medications Generic Name Dose Route Start Last Admin Trade Name Nas PRN Reason Stop Dose Admin Albuterol/Ipratropium 3 ml 12/21/24 02:00 01/01/25 07:38 Ipratropium-Albuterol 3 Ml Neb INHALATION 3 ml On Hold: 01/01/25 11:54 Q6H.RESP KIMI Administration Comment: Order held by Process Transfer Allopurinol 100 mg 12/21/24 09:00 01/01/25 09:37 Allopurinol 100 Mg Tablet PO 100 mg On Hold: 01/01/25 11:54 BID KIMI Administration Comment: Order held by Process Transfer Aspirin 81 mg 12/31/24 09:30 12/31/24 10:19 Aspirin 81 Mg Ec Tablet PO 81 mg On Hold: 01/01/25 11:54 DAILY KIMI Administration Comment: Order held by Process Transfer Atorvastatin Calcium 20 mg 12/21/24 09:00 01/01/25 09:37 Atorvastatin 10 Mg Tablet PO 20 mg On Hold: 01/01/25 11:54 DAILY KIMI Administration Comment: Order held by Process Transfer Budesonide 0.5 mg 12/21/24 20:00 01/01/25 07:38 Budesonide 0.5 Mg/2 Ml Neb INHALATION 0.5 mg On Hold: 01/01/25 11:54 BID.RESPIRATORY KIMI Administration Comment: Order held by Process Transfer Clopidogrel Bisulfate 75 mg 12/31/24 09:30 12/31/24 10:19 Clopidogrel 75 Mg Tablet PO 75 mg On Hold: 01/01/25 11:54 DAILY KIMI Administration Comment: Order held by Process Transfer Duloxetine HCl 60 mg 12/21/24 09:00 01/01/25 09:37 Duloxetine 60 Mg Capsule PO 60 mg On Hold: 01/01/25 11:54 DAILY KIMI Administration Comment: Order held by Process Transfer Epoetin Jovi-epbx 10,000 unit 12/27/24 14:00 12/29/24 15:17 Epoetin Jovi-Epbx 10,000 Unit/Ml Sdv (Esrd) SUBCUT 10,000 unit On Hold: 01/01/25 11:54 QMWF KIMI Administration Comment: Order held by Process Transfer Gabapentin 300 mg 12/21/24 09:00 01/01/25 09:37 Gabapentin 300 Mg Capsule PO 300 mg On Hold: 01/01/25 11:54 TID [facility] Administration Comment: Order held by Process Transfer Heparin Sodium (Porcine) 5,000 unit 12/20/24 23:34 01/01/25 00:03 Heparin 5,000 Unit/Ml Inj 1 Ml SUBCUT 5,000 unit On Hold: 01/01/25 11:54 Q12H KIMI Administration Comment: Order held by Process Transfer Ferric Sodium Gluconate 125 mg 110 mls @ 110 mls/hr 01/01/25 10:00 01/01/25 11:46 / Sodium Chloride IV Infused On Hold: 01/01/25 11:54 Q24H KIMI Infusion Comment: Order held by Process Transfer Insulin Human Lispro 0 unit 12/21/24 08:00 01/01/25 08:56 Insulin Lispro 100 Unit/1 Ml SUBCUT Not Given On Hold: 01/01/25 11:54 WM&BEDTIME KIMI Comment: Order held by Process Protocol Transfer Lanolin 1 applic 12/28/24 10:26 12/28/24 17:13 Lanolin Oint 7 Gm TOPICAL 1 applic On Hold: 01/01/25 11:54 PRN PRN Administration Comment: Order held by Process DRYNESS Transfer Metoprolol Tartrate 25 mg 12/27/24 21:00 01/01/25 09:37 Metoprolol Tartrate 25 Mg Tablet PO 25 mg On Hold: 01/01/25 11:54 BID@0900,2100 KIMI Administration Comment: Order held by Process Transfer Pantoprazole Sodium 40 mg 12/21/24 09:00 01/01/25 09:[address] 40 Mg Tablet PO 40 mg On Hold: 01/01/25 11:54 DAILY KIMI Administration Comment: Order held by Process Transfer Additional Medication Information Current Medications Acetaminophen (Acetaminophen 325 Mg Tablet) 650 mg PO Q6H PRN PRN Reason: Mild/Mod Pain Or Temp >/= 101 Albuterol/Ipratropium (Ipratropium-Albuterol 3 Ml Neb) 3 ml INHALATION Q6H.RESP [facility] Last Admin: 01/01/25 07:38 Dose: 3 ml Allopurinol (Allopurinol 100 Mg Tablet) 100 mg PO BID [facility] Last Admin: 01/01/25 09:37 Dose: 100 mg Aspirin (Aspirin 81 Mg Ec Tablet) 81 mg PO DAILY [facility] Last Admin: 12/31/24 10:19 Dose: 81 mg Atorvastatin Calcium (Atorvastatin 10 Mg Tablet) 20 mg PO DAILY [facility] Last Admin: 01/01/25 09:37 Dose: 20 mg Budesonide (Budesonide 0.5 Mg/2 Ml Neb) 0.5 mg INHALATION BID.RESPIRATORY [facility] Last Admin: 01/01/25 07:38 Dose: 0.5 mg Clopidogrel Bisulfate (Clopidogrel 75 Mg Tablet) 75 mg PO DAILY [facility] Last Admin: 12/31/24 10:19 Dose: 75 mg Duloxetine HCl (Duloxetine 60 Mg Capsule) 60 mg PO DAILY [facility] Last Admin: 01/01/25 09:37 Dose: 60 mg Epoetin Jovi-epbx (Epoetin Jovi-Epbx 10,000 Unit/Ml Sdv (Esrd)) 10,000 unit SUBCUT QMWF [facility] Last Admin: 12/29/24 15:17 Dose: 10,000 unit Furosemide (Furosemide 10 Mg/Ml Sdv 10ml) 60 mg IVP Q12H [facility] Last Admin: 01/01/25 09:37 Dose: 60 mg Gabapentin (Gabapentin 300 Mg Capsule) 300 mg PO TID [facility] Last Admin: 01/01/25 09:37 Dose: 300 mg Glucagon (Glucagon 1 Mg/Ml Kit 1 Ml) 1 mg IM ONCE PRN; Protocol PRN Reason: Adult Acute Hypoglycemia Nursing Prot. Heparin Sodium (Porcine) (Heparin 5,000 Unit/Ml Inj 1 Ml) 5,000 unit SUBCUT Q12H [facility] Last Admin: 01/01/25 00:03 Dose: 5,000 unit Dextrose (D5w) 500 mls @ 0 mls/hr IV ONCE PRN; Protocol PRN Reason: Adult Acute Hypoglycemia Prot Dextrose (D10w) 125 mls @ 750 mls/hr IV PRN PRN; Protocol PRN Reason: Adult Acute Hypoglycemia Nursing Protocol Dextrose (D10w) 250 mls @ 1,000 mls/hr IV PRN PRN; Protocol PRN Reason: Adult Acute Hypoglycemia Nursing Protocol Sodium Chloride (Sodium Chloride 0.9%) 1,000 mls @ 0 mls/hr IV .Q0M PRN PRN Reason: hypotension or symptomatic Albumin Human (Albumin) 12.5 gm in 50 mls @ 60 mls/hr IV PRN PRN PRN Reason: Hypotension and/or symptomatic Insulin Human Lispro (Insulin Lispro 100 Unit/1 Ml) 0 unit SUBCUT WM&BEDTIME KIMI; Protocol Last Admin: 01/01/25 08:56 Dose: Not Given Lanolin (Lanolin Oint 7 Gm) 1 applic TOPICAL PRN PRN PRN Reason: DRYNESS Last Admin: 12/28/24 17:13 Dose: 1 applic Metoprolol Tartrate (Metoprolol Tartrate 25 Mg Tablet) 25 mg PO BID@0900,2100 [facility] Last Admin: 01/01/25 09:37 Dose: 25 mg Ondansetron HCl (Ondansetron 2 Mg/Ml Sdv 2 Ml) 4 mg IVP Q6H PRN PRN Reason: NAUSEA AND VOMITING Ondansetron HCl (Ondansetron 2 Mg/Ml Sdv 2 Ml) 4 mg IVP Q2M PRN PRN Reason: NAUSEA Pantoprazole Sodium (Pantoprazole Dr 40 Mg Tablet) 40 mg PO DAILY [facility] Last Admin: 01/01/25 09:37 Dose: 40 mg PFSH Anesthesia Medical History (Updated 12/27/24 @ 11:51 by Gwendolyn Meyers MD) Charcot foot due to diabetes mellitus Mass of right ankle Right ankle pain Coronary artery disease Chronic use of steroids Chronic anemia Dyslipidemia Atypical chest pain Seronegative rheumatoid arthritis of both hands Seronegative rheumatoid arthritis High risk medication use Immunization counseling Osteoarthritis Gout Surgical History Hx of total ankle replacement History of bilateral cataract extraction History of shoulder surgery History of hysterectomy History of arthroscopic knee surgery History of thumb surgery History of carpal tunnel surgery H/O total knee replacement History of laparoscopic cholecystectomy History of hip replacement Family History Sister CAD (coronary artery disease) Heart attack in her 50s and of the same. Mother Stroke Strong family history for CVA. Grandfather, mother, niece all had a CVA Other Asthma Diabetes Hypertension Denies family history of Lupus (systemic lupus erythematosus) Rheumatoid arthritis Social History Smoking and tobacco/nicotine status: never used tobacco/nicotine Alcohol intake: never Data Anesthesia 01/01/25 04:38 01/01/25 04:38 Short CBC 12/31/24 01/01/25 Range/Units 02:57 04:38 WBC 21.18 H 18.03 H (3.29-11.43) 10^3/uL Hgb 8.50 L 8.60 L (11.27-16.99) g/dL Hct 28.5 L 28.5 L (36-47) % MCV 89.6 90.5 (85-98) fl Plt Count 311 331 (157-399) 10^3/cmm Neut % (Auto) 81.0 76.0 % Neut # (Auto) 17.15 H 13.70 H (1.8-7.7) 10^3/uL BMP 12/31/24 01/01/25 02:57 04:38 Sodium 133 L 133 L Potassium 3.8 3.4 L Chloride 95 L 94 L Carbon Dioxide 24 23 BUN 51 H 67 H Creatinine 3.4 H 4.2 H Glucose 127 H 131 H Calcium 8.7 9.1 Liver Function 12/31/24 01/01/25 Range/Units 02:57 04:38 Total Bilirubin 0.5 0.4 (0.15-1.2) mg/dL AST 26 21 (0-32) U/L ALT 16 16 (0-33) U/L Alkaline Phosphatase 98 101 (35-105) U/L Albumin 3.1 L 2.9 L (3.5-5.2) g/dL Coags 12/30/24 15:45 APTT 36.5 Cardiac Studies: Echocardiogram 12/21/24 Echocardiogram Ultrasound 04/02/20 Sestamibi Stress Test (Cardiology) 04/01/20
[2025-01-01] MEDS: ceFAZolin 2,000 mg SDV 2000 MG IVP (12:55)
[2025-01-01] MEDS: heparin, porcine 1,000 unit/mL INJ 10 mL 10000 UNIT IRRIGATION (13:00)
[2025-01-01] MEDS: lidocaine-epi 1% PF 1:200,000 30 mL SDV INJECTION (13:00)
--- NOTE | 2025-01-01 13:32 | P.OP_ITS ---
Operative Report Date of procedure: January 01, 2025 Pre-op diagnosis: End stage renal disease Post-op diagnosis: same Post-op findings: normal vascular anatomy of the right neck Procedure done: insertion of tunneled dialysis catheter Implants: 23 cm cuff to tip dual lumen dialysis catheter Surgeon: Phillip Reyes MD Independent Sales Representative: JOSE OR Staff Complications: none Brief History: Is a 87-year-old female with end-stage renal disease who requires a tunneled dialysis catheter for hemodialysis. After discussion we will resume benefits as documented in my preop note we decided to proceed to the OR for tunneled dialysis catheter placement Procedure: Patient was brought into the OR, she was placed in a supine position, moderate anesthesia sedation was given. Timeout was conducted after the skin was prepped and draped in the usual sterile fashion. I then proceeded to identify the right IJ vein with ultrasound, I infiltrated local anesthesia on top of the vein. I then proceeded to cannulate the vein under direct ultrasound guidance using an 18-gauge needle, the needle tip was seen entering the vein and immediate return of blood was noted. A wire was advanced through the needle and the needle was removed. The position of the wire was verified with ultrasound and fluoroscopy. The wire was then fixed to the drapes. I then placed my attention to the chest, local anesthesia was infiltrated in the previously marked area on the c hest and then a tract connecting the chest to the wire insertion site in the neck. I then proceeded to make a 0.5cm incision on the chest and a 0.5cm incision on the neck at the level of the wire insertion site. I then tunneled the catheter from the chest wound to the neck using the provider tunneler. the vein was then dilatated with serial sizes of dilatators under direct fluoro guidance. I then proceeded to insert an introducer with a peel-off sheath over the wire under direct fluoroscopic guidance. I then remove the wire and the introducer leaving the peel-off sheath in place. The catheter was then advanced through the peel-off sheath and the peel-off sheath was removed leaving the catheter in place. Fluoroscopy showed evidence of good catheter position. The catheter was tested and was working fine with good flow in both lumens. I then proceeded to fix the catheter with #3-0 nylon to the skin. I then closed the neck wound with #3-0 Vicryl. The catheter was tested once again and was working fine I then Locked the catheter. Dermabond was applied over the wound and a sterile dressing was applied on top. At the end of the procedure all counts were correct, the patient tolerated well the procedure was transferred to the PACU in stable condition.
--- NOTE | 2025-01-01 13:40 | XR_ITS ---
WS: [id number] XR chest 1V portable [id number] REASON FOR EXAM: in pacu. s/p permacath FINDINGS: Right IJ dual-lumen dialysis catheter with the catheter in the distal SVC/cavoatrial junction. Right arm PICC with tip in the mid to distal SVC. Cardiomegaly with coronary artery stents. Resolving diffuse interstitial and alveolar pulmonary opacities, and peribronchial cuffing. Moderate residual abnormality. Improving left lower hemithorax with residual atelectasis and blunting of the costophrenic angle. XR/XR chest 1V portable [id number] IMPRESSION: Line positions as above. Improving pulmonary opacities and peribronchial cuffin g.
--- NOTE | 2025-01-01 13:48 | PM.MISC ---
Miscellaneous Note Purpose of Documentation: Update on patient care Note: Right IJ tunneled dialysis catheter was placed. X-ray in the PACU verified good position and no evidence of pneumothorax. Catheter is ready to be used.
--- NOTE | 2025-01-01 14:05 | ANE.PACU2 ---
Inpatient post-anesthesia follow up: Airway intact: Yes Vital signs: Temperature 97.5 F Pulse Rate 74 Respiratory Rate 16 Blood Pressure 113/58 Pulse Oximetry 92 Oxygen Delivery Me thod Room Air Oxygen Flow Rate 1 Fraction of Inspir ed Oxygen 24 Hydration adequate: Yes Nausea and vomiting: No Pain level: 1 Mental status: Baseline
--- NOTE | 2025-01-01 14:34 | P.PN_ITS ---
Subjective 2 Subjective: Hospital course, labs appreciated. Today morning patient seen multiple family members at bedside. Denies any active complaints. Has remained hemodynamically stable and afebrile. Anxious about tunneled catheter today. Vitals/I&O/Wt Last Vital Signs Temp 97.8 F 01/01/25 13:59 Pulse 81 01/01/25 13:59 Resp 16 01/01/25 13:59 BP 121/69 01/01/25 13:59 Pulse Ox 93 01/01/25 13:59 O2 Del Method Room Air 01/01/25 13:59 O2 Flow Rate 1 12/30/24 07:53 FiO2 24 01/01/25 04:10 12/31/24 01/01/25 01/01/25 22:59 06:59 14:59 Intake Total 620 / 1460 160 / 160 Output Total 1250 / 1250 500 / 1750 Balance -630 / 210 -500 / -290 150 / 150 Weight last 48 hrs Weight 93.259 kg Weight 97.432 kg Weight 97 kg Physical Exam 2 Const: COMMON NORMALS: no acute distress and patient oriented x3 Eye: COMMON NORMALS: Equal, round and reactive pupils present and EOMs intact bilaterally PUPIL: Yes Equal, round and reactive pupils present Lymph: LYMPHATIC: no lymphadenopathy noted Resp: COMMON NORMALS: normal respiratory effort, No retractions, No use of accessory muscles and clear to auscultation bilaterally EFFORT & INSPECTION: Yes abnormal respiratory pattern, Yes tachypneic, Yes respiratory distress, Yes retractions intercostal and supraclavicular and Yes uses accessory muscles A USCULTATION: clear to auscultation bilaterally, crackles and wheezes OTHER: clear to auscultation b/l , no wheezes or ronchi, Cardio: COMMON NORMALS: regular rate, regular rhythm, S1 normal heart sound present and S2 normal heart sound present RATE: regular rate RHYTHM: r egular rhythm HEART SOUNDS: S1 normal heart sound present and S2 normal heart sound present GI: COMMON NORMALS: Normal to inspection, nondistended, normoactive bowel sounds present and non-tender : COMMON NORMALS: Yes no CVA tenderness BLADDER/KIDNEY EXAM: Yes no CVA tenderness Back/Pelvis: COMMON NORMALS: no CVA tenderness Extremity: COMMON NORMALS: no pedal edema NARRATIVE EXTREMITY EXAM: 1-2+ pitting edema OTHER: Has 2+ pitting edema Neuro: COMMON NORMALS: patient oriented x3, CN's II-XII intact bilaterally and moves all extremities Psych: COMMON NORMALS: mental status grossly normal Skin: COMMON NORMALS: turgor normal GENERAL SKIN EXAM: turgor normal Urinary Catheter Management: Lion: Cath Placed During This Visit: yes Reason for Continuing Indwelling Catheter: Accurate Measurement of Urinary Output in Critically Ill Patients Urinary Catheter Date of Insertion: 12/21/24 Urinary Catheter Time of Insertion: 09:58 Data 01/01/25 04:38 01/01/25 04:38 A&P Assessment and plan 1. Acute hypoxemic respiratory failure: 2. NSTEMI (non-ST elevated myocardial infarction): 3. Coronary artery disease involving [place] coronary artery of [place] heart without angina pectoris: 4. Acute kidney injury superimposed on CKD: 5. Acute on chronic diastolic congestive heart failure: 6. Benign essential hypertension with target blood pressure below 140/90: 7. Leukemoid reaction: 8. Anasarca: 9. High risk medication use: 10. Seronegative rheumatoid arthritis: 11. Acute respiratory distress: 12. Pneumonia: 13. Acute anemia: 14. Congestive heart failure: 15. Increased anion gap metabolic acidosis: 16. Sepsis: 17. Goals of care, counseling/discussion: Plan: Acute hypoxic hypercarbic respiratory failure - Multifactorial - From systolic CHF exacerbation - From multifocal pneumonia -Acute respiratory distress CT chest CT/[place] [id number] IMPRESSION: 1. Small bilateral pleural effusions with atelectatic changes in the lung bases. 2. Multiple prominent mediastinal lymph nodes measuring up to 10 mm in short axis. 3. There is an irregular pulmonary nodule in the right upper lobe measuring 16 x 14 mm (series 5, image 18) and a subsolid nodule in the left upper lobe measuring up to 18 x 17 mm (series 5, image 24). While this may represent multifocal multi lobar pneumonia true pulmonary nodules can not be excluded and in the absence of a known primary malignancy the Fleischner -Immunocompromise state -BNP over 20,000 this morning Plan -Moved to ICU - Continue BiPAP therapy as needed during the day, scheduled during the night - Switch to Lasix drip, currently at 20 mg/hr, 1 dose metolazone -Monitor BMP every 4hours - Monitor urine output, monitor creatinine - Vancomycin - Cefepime broaden to meropenem -DuoNeb - Blood cultures, sputum culture - Monitor respiratory status closely - Full code - Heparin for DVT prophylaxis Multifocal pneumonia, as above Sepsis - Secondary to pneumonia Systolic CHF exacerbation - Cardiac echo ordered IVC The inferior vena cava is dilated measuring 2.1 cm with no inspiratory collapse consistent with increased right atrial pressure. CONCLUSIONS 1. Left ventricular segmental wall motion abnormality in the basal inferior and inferolateral wall segments with overall normal ejection fraction of 54%. 2. Mild mitral valve regurgitation 3. Stage II left ventricular diastolic dysfunction 4. Mild concentric left ventricular hypertrophy 5. Mild pulmonary hypertension NSTEMI - No chest pain complaints - Aspirin, statin - History of cardiac cath 03/2020 Diagnostic Findings * No significant disease noted in the Left Main, LAD, Circumflex, or RCA coronary arteries. * Mid Circumflex Coronary Artery: has lesion. * Coronary angiography shows right dominance. * The left main is a medium caliber vessel with minimal intimal irregularities. * The left anterior descending artery is a relatively small to medium caliber vessel with diffuse disease, lesions ranging anywhere from 30 to 50%. The distal artery is a small caliber vessel which wrap around the LV apex minimally. The artery gives off multiple diagonal branches. The second diagonal branch was found to have 40 to 50% diffuse narrowing in the proximal segment. The other diagonal branches were found to have mild diffuse disease. * The circumflex artery is a medium to large caliber vessel which was found to have around 40% proximal segmental narrowing. The first obtuse marginal branch is a relatively small caliber vessel with 50 to 60% diffuse narrowing. Right after the second obtuse marginal branch, the artery appears to have around 50 to 60% tubular narrowing with some haziness. No other significant stenotic lesions were seen. * The right coronary artery is a medium caliber dominant vessel which also was found to have mild to moderate diffuse disease in the proximal and distal segment. The lesions were ranging anywhere from 30 to 50%. The PDA branch was found to have a proximal around 40% narrowing involving the ostium. No other significant stenotic lesions were noted. - Cardiac echo as above - Cardiology consulted Acute kidney injury -Creatinine 3.9 -Component of sepsis -Urine output 3 L -With hyperkalemia, hyponatremia, metabolic acidosis - Monitor urine output, monitor creatinine - Nephrology consulted - Patient declines dialysis Increased anion gap and metabolic acidosis - From acute renal failure, sepsis Liver cirrhosis? Etiology unclear Type 2 diabetes mellitus, low-dose sliding scale Acute on chronic anemia, monitor - Hemoglobin 6.8, will transfuse 1 unit PRBC Plan for today: Denies any active chest pain. Post PCI for non-ST elevation PR for positive cardiac stress test. Continue with dual antiplatelet therapy, statin. Check A1c, lipid panel. Appreciate nephrology recommendations. Will need abdominal dialysis catheter for long-term dialysis. Surgery consultation appreciated. Plan for high risk tunneled catheter placement today as patient continues to be on DAPT for recent PCI. Hemoglobin stable. Goal blood pressure less than 140/90 mmHg. Continue with current dose of metoprolol. Uptitrate as per goal blood pressure. Finish course of antibiotics for community-acquired pneumonia. Strict input output charting, daily weights. Fluid restriction to less than 1500 cc. Discharge plan: Plan discharge to SNF for further rehabilitation. Case management alerted. Heparin for DVT prophylaxis Protonix OPD prophylaxis Carb consistent renal dialysis diet. PDMP PDMP Reviewed: Not Reviewed Attestations 2 Medical Necessity Statement*: Requires further hospitalization for tunneled catheter placement in a patient being admitted for non-ST elevation PR post PCI, PUSHPA on CKD while safe discharge planning is sought Diagnoses Acute hypoxemic respiratory failure J96.01 NSTEMI (non-ST elevated myocardial infarction) I21.4 Coronary artery disease involving [place] coronary artery of [place] heart without angina pectoris I25.10 Coronary Disease-Associated Artery/Lesion type: [place] artery [place] vs. transplanted heart: [place] heart Associated angina: without angina Acute kidney injury superimposed on CKD N17.9; N18.9 Acute on chronic diastolic congestive heart failure I50.33 Heart failure type: diastolic Benign essential hypertension with target blood pressure below 140/90 I10 Leukemoid reaction D72.823 Leukocytosis type: leukemoid reaction Anasarca R60.1 High risk medication use Z79.899 Seronegative rheumatoid arthritis M06.00 Acute respiratory distress R06.03 Pneumonia J18.9 Acute anemia D64.9 Congestive heart failure I50.9 Increased anion gap metabolic acidosis E87.29 Sepsis A41.9 Goals of care, counseling/discussion Z71.89
--- NOTE | 2025-01-01 15:07 | PC.NURSE ---
Patient returned to [facility] from surgery at 1430.
--- NOTE | 2025-01-01 16:47 | PC.NURSE ---
Provider asked nursing staff to add Eliquis 5mg starting tonight.
[2025-01-01 17:34] LABS: THYROID PEROXIDASE ANTIBODIES 1 IU/mL (<9)
[2025-01-02] VITALS (11 sets, daily range): BP systolic 113–142; BP diastolic 54–70; PULSE 73–90; RESP 16–32; TEMP 36.2–37.2; O2SAT 90–98
[2025-01-02 00:19] LABS: Coronavirus 229E,HKU1,NL63,OC4 Not Detected (NOT DETECT); Parainfluenza Virus Type 1 Not Detected (NOT DETECT); Parainfluenza Virus Type 2 Not Detected (NOT DETECT); Parainfluenza Virus Type 3 Not Detected (NOT DETECT); Parainfluenza Virus Type 4 Not Detected (NOT DETECT); SARS-COV-2 Not Detected (NOT DETECT)
[2025-01-02] MEDS: heparin 5,000 unit/mL INJ 1 mL 5000 UNIT SUBCUT (00:51)
[2025-01-02 03:57] LABS: Hematocrit 27.1 % (36-47); Hemoglobin 8.50 g/dL (11.27-16.99); Mean Corpuscular HGB Conc 31.4 g/dL (30-55); Mean Corpuscular Hemoglobin 27.7 pg (27-33); Mean Corpuscular Volume 88.3 fl (85-98); Nucleated Red Blood Cells % 0 %; Platelet Count 326 10^3/cmm (157-399); Red Blood Count 3.07 10^6/uL (3.85-5.65); White Blood Count 17.87 10^3/uL (3.29-11.43)
[2025-01-02 04:19] LABS: Alanine Aminotransferase 13 U/L (0-33); Albumin Level 3.0 g/dL (3.5-5.2); Alkaline Phosphatase 105 U/L (35-105); Anion Gap 22.1 (5-19); Aspartate Amino Transferase 19 U/L (0-32); Calcium 8.9 mg/dL (8.5-10.5); Carbon Dioxide 23 mmol/L (22-29); Chloride 91 mmol/L (98-107); Creatinine Clr Calc Pharmacy 10.7763; Globulin 3.7 g/dL (1.3-4.6); Glucose 116 mg/dL (65-115); Magnesium 1.7 mg/dL (1.7-2.3); Osmolality Calculated 299 mOsm/kg (285-295); Potassium 4.1 mmol/L (3.5-5.1); Sodium 132 mmol/L (136-145); Total Protein 6.7 g/dL (6.6-8.7)
[2025-01-02 04:21] LABS: Cholesterol 90 mg/dL (0-200); HDL Cholesterol 38 mg/dL (60-100); Triglycerides 102 mg/dL (0-150); VLDL Cholestrol Calculation 20 mg/dL (0-30)
[2025-01-02 04:37] LABS: Blood Urea Nitrogen 81 mg/dL (8-23)
[2025-01-02] MEDS: ATORVASTATIN 10 MG TABLET 20 MG PO (08:27)
--- NOTE | 2025-01-02 08:37 | P.DS_ITS ---
Discharge Providers Date of Admission: 12/21/24 06:10 Date of Discharge: January 02, 2025 Attending Provider at Admission: Christy Gunderson MD Attending Provider at Discharge: Darnell Maddox MD Consults: Cardiology: Dr. Hughes Telemetry nephrology Surgery: Dr. Ronaldo Cooley Primary Care Provider: Blossom Barney MD Diagnoses at Discharge Discharge Diagnosis 1. Acute hypoxemic respiratory failure: 2. NSTEMI (non-ST elevated myocardial infarction): 3. Coronary artery disease involving [place] coronary artery of [place] heart without angina pectoris: 4. Acute kidney injury superimposed on CKD: 5. Acute on chronic diastolic congestive heart failure: 6. Benign essential hypertension with target blood pressure below 140/90: 7. Leukemoid reaction: 8. Anasarca: 9. High risk medication use: 10. Seronegative rheumatoid arthritis: 11. Acute respiratory distress: 12. Pneumonia: 13. Acute anemia: 14. Congestive heart failure: 15. Increased anion gap metabolic acidosis: 16. Sepsis: 17. Goals of care, counseling/discussion: Reason for Visit Reason for Visit: SOB, Chest Pressure Brief History: As per HPI Adina Gracia is a 79 year old female with significant past medical history for diabetes, hypertension, gout and severe rheumatoid arthritis, currently on Infliximab and prn prednisone, chronic leukocytosis of unclear significance over several years, followed by hematology. she presents to the ER today with chief complaints of worsening dyspnea on exertion over the past several weeks. Patient states that she has been unable to carry on her ADLs with as a result of her dyspnea. Day-to-day activities within the house make her very short of breath. She also feels a sensation of chest tightness along with the dyspnea. She has noticed increased lower extremity swelling over the past few weeks for which she wears chronic compression stockings and has used Lasix in the past. Reportedly she was taken off of Lasix by her PCP recently. She is unsure about the reason but thinks this may have been related to her kidney function. She states that she was evaluated at [facility] a few weeks ago and was told that her heart is all right. She is unable to tell me if she had an echocardiogram stress test or other cardiac testing there are not. She has a known history of CKD with a baseline creatinine range of 1.8-2.0. In August 2024 this was noted to be at 2.3, today creatinine is at 3.4.she has no ticed a drop in her urine output over the past 2 days. Patient has been using albuterol at home as she has noticed herself to be wheezing however this does not appear to help very much with her symptoms of dyspnea. On arrival to the ER today her 02 sat was 80%, needing oxygen at 2lpm which is a new requirement for the patient. Denies any fever, chills. ROS + increasing cough over the past month. Last quantiferon screen negative from 2018. Hospital Course Hospital Course Patient was admitted to the hospital for further evaluation and management of acute hypoxic respiratory failure along with anasarca in setting of congestive heart failure non-ST elevation [place] and PUSHPA on CKD. Nephrology and cardiology were consulted. She was started on aggressive IV diuresis. Given her baseline CKD she did not respond to IV diuresis and required dialysis. After multiple goals of care discussion patient was agreeable for dialysis and had temporary dialysis catheter placed on 12/25. After few sessions of dialysis patient became euvolemic and underwent cardiac str arrest on 12/29 and she was found to have medium sized of inferior infarction with medium size area of herman-infarct ischemia in the inferior apex and inferolateral wall. Eventually she underwent PCI to LCx with 2 stents, proximal to mid LAD 70% diffuse disease for which medical therapy was prescribed. Patient continued to have worsening renal functions with poor urinary response hence she had tunneled catheter placed on 01/01 for dialysis going forward. She was also treated for community-acquired pneumonia with, IV antibiotics. Same discharge plan were discussed in detail with the patient and family members at bedside and they requested patient to be transition to SNF for further rehabitation. She has been discharged to SNF in hemodynamically stable condition with advised to continue dialysis on Wednesday, Wednesday and Wednesday. She is to continue taking DAPT, statin. Physical Exam Const: COMMON NORMALS: no acute distress and patient oriented x3 Eye: COMMON NORMALS: Equal, round and reactive pupils present and EOMs intact bilaterally PUPIL: Yes Equal, round and reactive pupils present Lymph: LYMPHATIC: no lymphadenopathy noted Resp: COMMON NORMALS: normal respiratory effort, No retractions, No use of accessory muscles and clear to auscultation bilaterally EFFORT & INSPECTION: Yes abnormal respiratory pattern, Yes tachypneic, Yes respiratory distress, Yes retractions intercostal and supraclavicular and Yes uses accessory muscles AUSCULTATION: clear to auscultation bilaterally, crackles and wheezes OTHER: clear to auscultation b/l , no wheezes or ronchi, Cardio: COMMON NORMALS: regular rate, regular rhythm, S1 normal heart sound present and S2 normal heart sound present RATE: regular rate RHYTHM: regular rhythm HEART SOUNDS: S1 normal heart sound present and S2 normal heart sound present GI: COMMON NORMALS: Normal to inspection, nondistended, normoactive bowel sounds present and non-tender : COMMON NORMALS: Yes no CVA tenderness BLADDER/KIDNEY EXAM: Yes no CVA tenderness Back/Pelvis: COMMON NORMALS: no CVA tenderness Extremity: COMMON NORMALS: no pedal edema NARRATIVE EXTREMITY EXAM: 1-2+ pitting edema OTHER: Has 2+ pitting edema Neuro: COMMON NORMALS: patient oriented x3, CN's II-XII intact bilaterally and moves all extremities Psych: COMMON NORMALS: mental status grossly normal Skin: COMMON NORMALS: turgor normal GENERAL SKIN EXAM: turgor normal Urinary Catheter Management: Lion: Cath Placed During This Visit: yes Reason for Continuing Indwelling Catheter: Accurate Measurement of Urinary Output in Critically Ill Patients Urinary Catheter Date of Insertion: 12/21/24 Urinary Catheter Time of Insertion: 09:58 Discharge Data Studies Completed and Pending Completed Studies During Hospitalization Category Date Time Status CT chest abdomen pelvis [[place] [address]475 Cat Scan 12/20/24 23:07 Completed ] Stat CXRP [XR chest 1V portable [id number]] Routine Exams 12/21/24 12:46 Completed Cardiac Stress Test MIBI [Sestamibi Stress Test Request Exams 12/28/24 13:28 Completed ] Routine XR chest 1V portable [id number] Routine Exams 12/22/24 07:00 Completed XR chest 1V portable [id number] Routine Exams 12/23/24 12:48 Completed XR chest 1V portable [id number] Routine Exams 12/25/24 07:00 Completed XR chest 1V portable [id number] Routine Exams 12/27/24 07:11 Completed XR chest 1V portable [id number] Stat Exams 12/20/24 17:04 Completed XR chest 1V portable [id number] Stat Exams 01/01/25 13:40 Completed NM ramin perf SPECT r/s* [id number] Routine Nuc Med 12/29/24 13:28 Completed NM pul vent and perfus* [id number] Stat Nuc Med 12/27/24 15:26 [place] [id number] Routine Ultrasound 12/21/24 23:07 Completed CV. 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 request for service Routine Exams 12/30/24 07:00 Ordered HAYLEE Profile Rheumatology Stat Lab 12/26/24 19:21 Results Complete Blood Count w/Auto AM LABS Lab 01/03/25 04:00 Ordered Fecal Occult Blood [Immunochemical Fecal OCB] Routine Lab 12/26/24 15:43 Uncollected Folate Level AM LABS Lab 01/02/25 03:39 Received MAG [Magnesium] AM LABS Lab 01/03/25 04:00 Ordered MAG [Magnesium] AM LABS Lab 01/04/25 04:00 Ordered Mycobacteria, Culture w/Fluor Routine Lab 12/21/24 01:23 Uncollected Occult Blood Stool [Immunochemical Fecal OCB] Routine Lab 12/21/24 11:07 Uncollected Radiology Impressions Chest/Abdomen/Pelvis CT 12/20/24 23:07 IMPRESSION: 1. Small bilateral pleural effusions with atelectatic changes in the lung bases. 2. Multiple prominent mediastinal lymph nodes measuring up to 10 mm in short axis. 3. There is an irregular pulmonary nodule in the right upper lobe measuring 16 x 14 mm (series 5, image 18) and a subsolid nodule in the left upper lobe measuring up to 18 x 17 mm (series 5, image 24). While this may represent multifocal multi lobar pneumonia true pulmonary nodules can not be excluded and in the absence of a known primary malignancy the Fleischner IMPRESSION: 1. Cirrhotic liver. 2. No bowel obstruction or inflammatory process associated with the bowel. 3. No free air or significant free fluid in the abdomen or pelvis. 4. The appendix is not visualized but there are no secondary signs of acute appendicitis. Venous Duplex 12/26/24 15:29 IMPRESSION: No evidence of deep vein thrombosis. Abdomen Ultrasound 12/26/24 15:30 IMPRESSION: No peritoneal ascites. Pulmonary Perfusion Imaging 12/27/24 15:26 IMPRESSION: Low probability of pulmonary embolism. C-Arm Fluoroscopy 01/01/25 08:43 IMPRESSION: Intraoperative imaging during dialysis catheter placement. Chest X-Ray 01/01/25 13:40 IMPRESSION: Line positions as above. Improving pulmonary opacities and peribronchial cuffing. Microbiology 12/21/24 10:34 Sputum - Expectorated Sputum Gram Stain - Final 12/21/24 10:34 Sputum - Expectorated Sputum Sputum Culture - Final Laboratory Results WBC 17.87 10^3/uL (3.29-11.43) H 01/02/25 03:39 Corrected WBC Cancelled 12/22/24 05:03 RBC 3.07 10^6/uL (3.85-5.65) L 01/02/25 03:39 Hgb 8.50 g/dL (11.27-16.99) L 01/02/25 03:39 Hct 27.1 % (36-47) L 01/02/25 03:39 MCV 88.3 fl (85-98) 01/02/25 03:39 MCH 27.7 pg (27-33) 01/02/25 03:39 MCHC 31.4 g/dL (30-55) 01/02/25 03:39 RDW 15.9 % (12.1-15.1) H 01/02/25 03:39 Plt Count 326 10^3/cmm (157-399) 01/02/25 03:39 MPV 10.7 fL (7.4-10.4) H 01/02/25 03:39 Gran % Cancelled 12/22/24 05:03 Neut % (Auto) 78.8 % 01/02/25 03:39 Lymph % (Auto) 9.3 % 01/02/25 03:39 [place] % (Auto) 6.7 % 01/02/25 03:39 Eos % (Auto) 4.0 % 01/02/25 03:39 Baso % (Auto) 0.3 % 01/02/25 03:39 Neut # (Auto) 14.07 10^3/uL (1.8-7.7) H 01/02/25 03:39 Lymph # (Auto) 1.7 10^3/uL (0.8-4.8) 01/02/25 03:39 [place] # (Auto) 1.2 10^3/uL (0.2-0.9) H 01/02/25 03:39 Eos # (Auto) 0.7 10^3/uL (0.0-0.8) 01/02/25 03:39 Baso # (Auto) 0.1 10^3/uL (0.0-0.1) 01/02/25 03:39 Absolute Gran (auto) Cancelled 12/22/24 05:03 Nucleated RBC % (auto) 0 % 01/02/25 03:39 Nucleated RBCs # 0.0 /100WBC 01/02/25 03:39 Peripher Smr Path Cons Sent for review 12/26/24 02:40 PT 15.00 SECONDS (12.1-14.9) H 12/27/24 03:51 INR 1.11 (0.8-1.2) 12/27/24 03:51 APTT 36.5 SECONDS (23.9-36.7) 12/30/24 15:45 D-Dimer 4.75 ug/mLFEU (0-0.59) H 12/26/24 15:58 Specimen Type Arterial 12/22/24 03:37 Sample Site Radial, right 12/22/24 03:37 ABG pH 7.27 (7.35-7.45) L 12/22/24 03:37 ABG pCO2 41.4 mmHg (35-45) 12/22/24 03:37 ABG pO2 69.9 mmHg (80.0-100.0) L 12/22/24 03:37 ABG PO2/FiO2 Ratio 233 12/22/24 03:37 ABG HCO3 19.1 mmol/L (22-26) L 12/22/24 03:37 ABG Base Excess -7.2 mmol/L (-2.0-2.0) L 12/22/24 03:37 David Test Pos 12/22/24 03:37 Hematocrit 25.8 % (37-47) L 12/22/24 03:37 O2 Delivery Device Bipap 12/22/24 03:37 O2 Liters/Min 3.0 % 12/21/24 11:01 FiO2 30.0 % 12/22/24 03:37 Informatics Nurse Specialist ID [id number] 12/22/24 03:37 Sodium 132 mmol/L (136-145) L 01/02/25 03:39 Potassium 4.1 mmol/L (3.5-5.1) 01/02/25 03:39 Chloride 91 mmol/L (98-107) L 01/02/25 03:39 Carbon Dioxide 23 mmol/L (22-29) 01/02/25 03:39 Anion Gap 22.1 (5-19) H 01/02/25 03:39 BUN 81 mg/dL (8-23) H 01/02/25 03:39 Creatinine 4.7 mg/dL (0.5-0.9) H 01/02/25 03:39 GFR Calculation Not Reportable 01/02/25 03:39 Glucose 116 mg/dL (65-115) H 01/02/25 03:39 POC Glucose 131 mg/dL (70-110) H 01/02/25 06:14 Estimat Average Glucose 134 12/20/24 23:43 Hemoglobin A1c 6.3 % (4.0-6.0) H 12/20/24 23:43 Calculated Osmolality 299 mOsm/kg (285-295) H 01/02/25 03:39 Lactic Acid 1.3 mmol/L (0.5-2.2) 12/21/24 08:54 Lactate 0.7 mmol/L (0.5-2.2) 12/24/24 05:19 Uric Acid 5.3 mg/dL (2.4-5.7) 12/29/24 04:33 Calcium 8.9 mg/dL (8.5-10.5) 01/02/25 03:39 Phosphorus 6.6 mg/dL (2.5-4.5) H 01/01/25 04:38 Magnesium 1.7 mg/dL (1.7-2.3) 01/02/25 03:39 Iron 28 ug/dL (37-145) L 01/01/25 04:38 TIBC 140 mcg/dl 01/01/25 04:38 % Saturation 20.0 % (20-50) 01/01/25 04:38 Unsat Iron Binding 112 ug/dL (112-347) 01/01/25 04:38 Ferritin 833 ng/mL (15-150) H 01/01/25 04:38 Total Bilirubin 0.4 mg/dL (0.15-1.2) 01/02/25 03:39 AST 19 U/L (0-32) 01/02/25 03:39 ALT 13 U/L (0-33) 01/02/25 03:39 Alkaline Phosphatase 105 U/L (35-105) 01/02/25 03:39 Creatine Kinase 100 U/L (26-192) 12/24/24 01:45 Creatine Kinase Cancelled 12/24/24 01:45 Troponin T Baseline 39 ng/L (0-10) H 12/20/24 17:13 Troponin T 120 Minute 39.96 ng/L (0-10) H 12/20/24 19:00 Delta Troponin T 0.96 ABS# (0-10) 12/20/24 19:00 Troponin T Hi Sens 6Hr 41.68 ng/L (0-10) H 12/20/24 23:43 Troponin T Hi Sens 6Hr Delta 2.68 ng/L (0-12) 12/20/24 23:43 C-Reactive Protein 85.9 mg/L (0.0-4.9) H 12/27/24 03:51 NT-Pro-B Natriuret Pep > 34844 pg/mL (0-450) H 12/27/24 03:51 Total Protein 6.7 g/dL (6.6-8.7) 01/02/25 03:39 Albumin 3.0 g/dL (3.5-5.2) L 01/02/25 03:39 Globulin 3.7 g/dL (1.3-4.6) 01/02/25 03:39 Irdyo-2-Apoyqvxis 0.6 g/dL (0.2-0.3) H 12/20/24 23:43 Vbykk-7-Ifvnvuzlo 1.2 g/dL (0.5-0.9) H 12/20/24 23:43 Fkwf-6-Elbobdmh 0.5 g/dL (0.4-0.6) 12/20/24 23:43 Qxmg-9-Estzbked 0.5 g/dL (0.2-0.5) 12/20/24 23:43 Gamma Globulins 1.3 g/dL (0.8-1.7) 12/20/24 23:43 Abnorm Protein Band 1 Not Reportable 12/20/24 23:43 Triglycerides 102 mg/dL (0-150) 01/02/25 03:39 Cholesterol 90 mg/dL (0-200) 01/02/25 03:39 LDL Cholesterol, Calc 32 mg/dL (50-129) L 01/02/25 03:39 Total VLDL Cholesterol 20 mg/dL (0-30) 01/02/25 03:39 HDL Cholesterol 38 mg/dL (60-100) L 01/02/25 03:39 Cholesterol/HDL Ratio 2.37 mg/dL (0.0-4.40) 01/02/25 03:39 Vitamin B12 1965 pg/mL (232-1245) H 01/01/25 04:38 Procalcitonin 0.73 ng/mL (0-0.5) H 01/01/25 04:38 TSH 2.58 uIU/mL (0.27-4.20) 12/21/24 04:17 PTH Intact 119.0 pg/mL (15-65) H 12/29/24 04:33 Calcium (PTH Intact) 8.9 mg/dL (8.5-10.5) 12/29/24 04:33 Urine Color Yellow (Yellow) 12/21/24 10:02 Urine Appearance Clear (CLEAR) 12/21/24 10:02 Urine pH 5.0 (5-7) 12/21/24 10:02 Ur Specific [place] 1.010 (1.005-1.030) 12/21/24 10:02 Urine Protein 2+ (Negative) A 12/21/24 10:02 Urine Glucose (UA) Negative (Normal) 12/21/24 10:02 Urine Ketones Negative (Negative) 12/21/24 10:02 Urine Blood Negative (Negative) 12/21/24 10:02 Urine Nitrate Negative (Negative) 12/21/24 10:02 Urine Bilirubin Negative (Negative) 12/21/24 10:02 Urine Urobilinogen 0.2 mg/dL (Negative) 12/21/24 10:02 Ur Leukocyte Esterase Negative (Negative) 12/21/24 10:02 Urine RBC 0-2 /hpf (0-2) 12/21/24 10:02 Urine WBC 0-5 /hpf (0-5) 12/21/24 10:02 Ur Squamous Epith Cells 0-5 /hpf (0-5) 12/21/24 10:02 Amorphous Sediment Not Reportable 12/21/24 10:02 Urine Bacteria None seen /hpf (NONE) 12/21/24 10:02 Hyaline Casts 7.85 /lpf 12/21/24 10:02 U Abnormal Prot Band 2 Not Reportable 12/20/24 23:43 U Abnormal Prot Band 3 Not Reportable 12/20/24 23:43 Nasal MRSA (PCR) Not detected (Not Detecte) 12/21/24 08:29 Vancomycin Trough 17.9 ug/mL (10-15) H 12/26/24 02:40 Random Vancomycin 26.0 ug/mL (20.0-40.0) 12/27/24 03:51 Urine Opiates Screen Negative ng/mL (Negative) 12/20/24 19:35 Ur Barbiturates Screen Negative ng/mL (Negative) 12/20/24 19:35 Ur Phencyclidine Scrn Negative ng/mL (Negative) 12/20/24 19:35 Ur Amphetamines Screen Negative ng/mL (Negative) 12/20/24 19:35 U Benzodiazepines Scrn Negative ng/mL (Negative) 12/20/24 19:35 Urine Cocaine Screen Negative ng/mL (Negative) 12/20/24 19:35 U Marijuana (THC) Screen Negative ng/mL (Negative) 12/20/24 19:35 Pro Electrophoresis Int See note 12/20/24 23:43 Serum Immunofixation Normal pattern. 12/20/24 23:43 HAYLEE Screen Negative (NEGATIVE) 12/27/24 03:51 HAYLEE IFA Animal Tis Res Negative (NEGATIVE) 12/27/24 03:51 ANCA Screen Negative (NEGATIVE) 12/27/24 03:51 ANCA Titer Not Reportable 12/27/24 03:51 JANELLE-1 Antibody <1.0 neg AI (<1.0 NEG) 12/27/24 03:51 SS-A Antibody <1.0 neg AI (<1.0 NEG) 12/27/24 03:51 SS-B Antibody <1.0 neg AI (<1.0 NEG) 12/27/24 03:51 Sm (Funez) Antibody <1.0 neg AI (<1.0 NEG) 12/27/24 03:51 SU[employer]VISOR [employer] Antibody <1.0 neg AI (<1.0 NEG) 12/27/24 03:51 Scl-70 Antibody <1.0 neg AI (<1.0 NEG) 12/27/24 03:51 Centromere B Antibody <1.0 neg AI (<1.0 NEG) 12/27/24 03:51 Thyroid Peroxidase Ab 1 IU/mL (<9) 12/27/24 03:51 Glomerular Base Mem IgG <1.0 AI 12/27/24 03:51 Complement C3 130 mg/dL (90-180) 12/26/24 19:36 Complement C3c 126 mg/dL (83-193) 12/27/24 03:51 Complement C4 7 mg/dL (10-40) L 12/26/24 19:36 Complement C4c 8 mg/dL (15-57) L 12/27/24 03:51 Tot Complement (CH50) 51 U/mL (31-60) 12/27/24 03:51 CH50 Classical Pathway 52 U/mL (31-60) 12/27/24 03:51 Immunophenotype Interp See report 12/27/24 05:17 Adenovirus (PCR) Not detected (NOT DETECT) 12/26/24 17:45 C. pneumoniae DNA (PCR) Not detected (NOT DETECT) 12/26/24 17:45 Coronavirus 229E (PCR) Not detected (NOT DETECT) 01/01/25 22:00 Hepatitis A IgM Ab Non-reactive (Nonreactive) 12/20/24 23:43 Hep Bs Antigen Non-reactive (Nonreactive) 12/25/24 02:58 Hep Bs Antibody < 3.5 (11.5-1000) L 12/25/24 02:58 Hep B Core Total Ab Non-reactive (Nonreactive) 12/20/24 23:43 Hepatitis C Antibody Non-reactive (Nonreactive) 12/20/24 23:43 Human Metapneumovir PCR Not detected (NOT DETECT) 12/26/24 17:45 Influenza A (H1) PCR Not detected (NOT DETECT) 12/26/24 17:45 Influenza A (PCR) Negative (Negative) 12/20/24 17:54 Influ A (H1/09) PCR Not detected (NOT DETECT) 12/26/24 17:45 Influenza A (H3) PCR Not detected (NOT DETECT) 12/26/24 17:45 Influenza Type A (PCR) Not detected (NOT DETECT) 12/26/24 17:45 Influenza Type B (PCR) Not detected (NOT DETECT) 12/26/24 17:45 M. pneumoniae (PCR) Not detected (NOT DETECT) 12/26/24 17:45 Parainfluenza 1 (PCR) Not detected (NOT DETECT) 12/26/24 17:45 Parainfluenza 2 (PCR) Not detected (NOT DETECT) 12/26/24 17:45 Parainfluenza 3 (PCR) Not detected (NOT DETECT) 12/26/24 17:45 Parainfluenza 4 (PCR) Not detected (NOT DETECT) 12/26/24 17:45 RSV (PCR) Negative (Negative) 12/20/24 17:54 RSV Type A (PCR) Not detected (NOT DETECT) 12/26/24 17:45 RSV Type B (PCR) Not detected (NOT DETECT) 12/26/24 17:45 Entero/Rhino (PCR) Not detected (NOT DETECT) 12/26/24 17:45 SARS-CoV-2 (PCR) Not detected (NOT DETECT) 01/01/25 22:00 BCR/abl Source blood 12/26/24 17:10 BCR/abl Prior Result Ng 12/26/24 17:10 BCR/abl (p190) Result Not detected 12/26/24 17:10 BCR/abl Interpretation See note 12/26/24 17:10 BCR/abl1 to abl1 % 0.000 (0.000) 12/26/24 17:10 BCR/abl1 IS % 0.000 (0.000) 12/26/24 17:10 BCR/abl1 Mjr (p210) Res Not detected 12/26/24 17:10 Blood Type O Positive 12/24/24 05:19 Rho(D) Type Rh positive 12/24/24 05:19 Antibody Screen Negative 12/24/24 05:19 Crossmatch See Detail 12/24/24 05:19 Vitals Last Vital Signs Temp 97.5 F L 01/02/25 07:36 Pulse 74 01/02/25 07:49 Resp 16 01/02/25 07:38 BP 113/58 01/02/25 07:36 Pulse Ox 92 01/02/25 07:38 O2 Del Method Room Air 01/02/25 07:38 O2 Flow Rate 1 12/30/24 07:53 FiO2 24 01/02/25 03:13 Discharge Plan Discharge Patient Disposition: Home Condition: Stable Prescriptions: New clopidogrel 75 mg Tablet 75 mg PO DAILY Qty: 30 0RF atorvastatin 10 mg Tablet 20 mg PO DAILY 30 Days Qty: 60 0RF dapagliflozin propanediol [Farxiga] 10 mg tablet 10 mg PO DAILY Qty: 30 0RF Continued gabapentin 300 mg capsule 300 mg PO TID Renflexis 100 mg recon soln 100 mg IV Q30D (DME) AFO to right See Rx Instructions .Route .MEDSUPPLY Qty: 1 0RF Rx Instructions: As directed mupirocin 2 % ointment 1 applic topical BID Qty: 22 1RF (DME) nebulizers Mis See Rx Instructions .Route Qty: 1 0RF Rx Instructions: 1 nebulier and all rquired supplies allopurinol 100 mg tablet 100 mg PO BID Qty: 180 0RF aspirin 81 mg Tablet,Delayed Release (Dr/Ec) 81 mg PO DAILY PRN (Reason: UNKNOWN) furosemide 40 mg tablet 40 mg PO DAILY tizanidine 4 mg tablet See Rx Instructions .ROUTE .COMPLEX Rx Instructions: TAKE 1 TABLET BY MOUTH EVERY 6 TO 8 HOURS NEEDED albuterol sulfate 90 mcg/actuation HFA aerosol inhaler See Rx Instructions .ROUTE .COMPLEX Rx Instructions: 2 puff using inhaler every six to eight hours as needed wheeze duloxetine 60 mg capsule,delayed release(DR/EC) 60 mg PO DAILY oxycodone 20 mg tablet See Rx Instructions .ROUTE .COMPLEX Rx Instructions: Take 1/2-1 TAB EVERY 4 TO 6 HOURS NEEDED PAIN. MAX 2 TABS A DAY. HOLD WITHIN 4HOURS OF PLANNED SLEEP Tart Castillo Extract 1,000 mg Capsule 1,000 mg PO DAILY turmeric 400 mg Capsule 400 mg PO DAILY mecobalamin (vitamin B12) [B12 Active] 1,000 mcg Tablet,Chewable 1,000 mcg PO DAILY Probiotic 15 billion cell Capsule 1 cap PO DAILY Changed metoprolol tartrate 50 mg tablet 25 mg PO BID 30 Days Qty: 30 0RF insulin aspart U-100 [Novolog FlexPen U-100 Insulin] 100 unit/mL (3 mL) insulin pen See Protocol SUBCUT TID 30 Days Qty: 15 0RF Protocol: Insulin Corrective High-Dose Regimen Condition: Fingerstick Blood Glucose Dose/Route: Insulin Units Condition: 141-180 mg/dl Dose/Route: 6 units/SQ Condition: 181-220 mg/dl Dose/Route: 8 units/SQ Condition: 221-260 mg/dl Dose/Route: 10 units/SQ Condition: 261-300 mg/dl Dose/Route: 12 units/SQ Condition: 301-350 mg/dl Dose/Route: 14 units/SQ Condition: 351-400 mg/dl Dose/Route: 16 units/SQ Condition: greater than 400 mg/dl Dose/Route: 18 units/SQ Discontinued amlodipine 10 mg tablet 10 mg PO DAILY insulin degludec [Tresiba FlexTouch U-100] 100 unit/mL (3 mL) insulin pen 60 unit SUBCUT DAILY Referrals: Blossom Barney MD [Primary Care Provider, Internal Medicine] - 4-7 days Mona Reyna NP [Nurse Practitioner, Cardiology] - 2 weeks Discharge Diet: Usual diet Discharge Activity: Resume usual activity and Increase activity as tolerated Patient Instructions: Atorvastatin (By mouth) (Lipitor, Atorvaliq), Clopidogrel (By mouth) (Plavix), Coronary Artery Disease (DC), Coronary Angioplasty (DC), Acute Kidney Injury (DC), Acute Wound Care (DC), Opioid Safety, Post Anesthesia Care, Post Angiogram Home Care Instructions, Patient Portal & [facility] Instructions Discharge Attestations Time Spent in Discharge Care*: greater than 30 min Specific Discharge Activities: educating patient, educating and/or supporting family/caregiver, discussing with pcp/other providers, discussing with insurance case manager/social workers/dc planners, documenting/other paperwork and evaluating patient/reviewing data Status at Discharge: Cognitive status at discharge: cognitively intact , Behavioral status at discharge: cooperative , Functional status at discharge: uses cane/walker , Overall status at discharge: patient is progressing back to baseline Quality Metrics Clinical Quality Measures [ No reported AMI, CVA or VTE this stay] Coding Level of Care Code 94898 Total time (in minutes) for Discharge: 65 Diagnoses Acute hypoxemic respiratory failure J96.01 NSTEMI (non-ST elevated myocardial infarction) I21.4 Coronary artery disease involving [place] coronary artery of [place] heart without angina pectoris I25.10 Associated angina: without angina Coronary Disease-Associated Artery/Lesion type: [place] artery [place] vs. transplanted heart: [place] heart Acute kidney injury superimposed on CKD N17.9; N18.9 Acute on chronic diastolic congestive heart failure I50.33 Heart failure type: diastolic Benign essential hypertension with target blood pressure below 140/90 I10 Leukemoid reaction D72.823 Leukocytosis type: leukemoid reaction Anasarca R60.1 High risk medication use Z79.899 Seronegative rheumatoid arthritis M06.00 Acute respiratory distress R06.03 Pneumonia J18.9 Acute anemia D64.9 Congestive heart failure I50.9 Increased anion gap metabolic acidosis E87.29 Sepsis A41.9 Goals of care, counseling/discussion Z71.89
--- NOTE | 2025-01-02 10:11 | PM.PN ---
Subjective Subjective: Patient complains of pain at site of permacath. Patient has no nausea vomiting decreased edema decreased shortness of breath. Looking forward to going to rehab Medications: Reviewed: Yes Medication Review Details: Current Medications Acetaminophen (Acetaminophen 325 Mg Tablet) 650 mg PO Q6H PRN PRN Reason: Mild/Mod Pain Or Temp >/= 101 Albuterol/Ipratropium (Ipratropium-Albuterol 3 Ml Neb) 3 ml INHALATION Q6H.RESP [facility] Last Admin: 01/02/25 07:37 Dose: 3 ml Allopurinol (Allopurinol 100 Mg Tablet) 100 mg PO BID [facility] Last Admin: 01/02/25 08:28 Dose: 100 mg Aspirin (Aspirin 81 Mg Ec Tablet) 81 mg PO DAILY [facility] Last Admin: 01/01/25 14:36 Dose: 81 mg Atorvastatin Calcium (Atorvastatin 10 Mg Tablet) 20 mg PO DAILY [facility] Last Admin: 01/02/25 08:27 Dose: 20 mg Budesonide (Budesonide 0.5 Mg/2 Ml Neb) 0.5 mg INHALATION BID.RESPIRATORY [facility] Last Admin: 01/02/25 07:37 Dose: 0.5 mg Clopidogrel Bisulfate (Clopidogrel 75 Mg Tablet) 75 mg PO DAILY [facility] Last Admin: 01/02/25 08:28 Dose: 75 mg Epoetin Jovi-epbx (Epoetin Jovi-Epbx 10,000 Unit/Ml Sdv (Esrd)) 10,000 unit SUBCUT QMWF [facility] Last Admin: 12/29/24 15:17 Dose: 10,000 unit Gabapentin (Gabapentin 300 Mg Capsule) 300 mg PO TID [facility] Last Admin: 01/02/25 08:27 Dose: 300 mg Glucagon (Glucagon 1 Mg/Ml Kit 1 Ml) 1 mg IM ONCE PRN; Protocol PRN Reason: Adult Acute Hypoglycemia Nursing Prot. Heparin Sodium (Porcine) (Heparin 5,000 Unit/Ml Inj 1 Ml) 5,000 unit SUBCUT Q12H [facility] Last Admin: 01/02/25 00:51 Dose: 5,000 unit Dextrose (D10w) 125 mls @ 750 mls/hr IV PRN PRN; Protocol PRN Reason: Adult Acute Hypoglycemia Nursing Protocol Sodium Chloride (Sodium Chloride 0.9%) 1,000 mls @ 0 mls/hr IV .Q0M PRN PRN Reason: hypotension or symptomatic Albumin Human (Albumin) 12.5 gm in 50 mls @ 60 mls/hr IV PRN PRN PRN Reason: Hypotension and/or symptomatic Ferric Sodium Gluconate 125 mg (/ Sodium Chloride) 110 mls @ 110 mls/hr IV Q24H [facility] Stop: 01/08/25 10:59 Last Infusion: 01/01/25 11:46 Dose: Infused Insulin Human Lispro (Insulin Lispro 100 Unit/1 Ml) 0 unit SUBCUT WM&BEDTIME [facility]; Protocol Last Admin: 01/02/25 08:28 Dose: Not Given Lanolin (Lanolin Oint 7 Gm) 1 applic TOPICAL PRN PRN PRN Reason: DRYNESS Last Admin: 12/28/24 17:13 Dose: 1 applic Metoprolol Tartrate (Metoprolol Tartrate 25 Mg Tablet) 25 mg PO BID@0900,2100 [facility] Last Admin: 01/02/25 08:27 Dose: 25 mg Ondansetron HCl (Ondansetron 2 Mg/Ml Sdv 2 Ml) 4 mg IVP Q6H PRN PRN Reason: NAUSEA AND VOMITING Pantoprazole Sodium (Pantoprazole Dr 40 Mg Tablet) 40 mg PO DAILY [facility] Last Admin: 01/02/25 08:27 Dose: 40 mg Vitals/I&O/Wt Last Vital Signs Temp 97.5 F L 01/02/25 07:36 Pulse 74 01/02/25 07:49 Resp 16 01/02/25 07:38 BP 113/58 01/02/25 07:36 Pulse Ox 92 01/02/25 07:38 O2 Del Method Room Air 01/02/25 07:38 O2 Flow Rate 1 12/30/24 07:53 FiO2 24 01/02/25 03:13 01/01/25 01/02/25 01/02/25 22:59 06:59 14:59 Intake Total 240 / 400 120 / 120 Output Total 850 / 860 400 / 1260 Balance -610 / -460 -400 / -860 120 / 120 Weight last 48 hrs Weight 95.708 kg Weight 93.259 kg Physical Exam Narrative: She is sitting up comfortably in a chair, no apparent distress. HEENT normocephalic with manage. Neck is supple Lungs: Bilateral good air movement Heart irregular, systolic murmur. Abdomen is soft nontender nondistended positive bowel sounds. Extremities -1+ edemea Neuro awake alert oriented x 3 rt ij permacath Urinary Catheter Management: Lion: Cath Placed During This Visit: yes Reason for Continuing Indwelling Catheter: Accurate Measurement of Urinary Output in Critically Ill Patients Urinary Catheter Date of Insertion: 12/21/24 Urinary Catheter Time of Insertion: 09:58 Data 01/02/25 03:39 01/02/25 03:39 A&P Assessment and plan 1. Acute kidney injury superimposed on CKD: 79-year-old lady diabetes hypertension gout. Rheumatoid arthritis on infliximab and prednisone. Patient has chronic leukocytosis. Patient was admitted with acute on chronic renal failure and acute on chronic exacerbation of heart failure diastolic dysfunction. Patient has non-ST elevation MT also anemia. 1. CKD stage 4- baseline cr 1.8- 2mg/dl 1b. PUSHPA-patient has 3+ proteinuria on urinalysis and also has liver cirrhosis. Serologies are pending. Serum immunofixation is normal The patient has low C4 normal C3 - echocardiogram: LVEF 54%, grade 2 diastolic dysfunction, wall motion abnormality akinesis of the basal inferior wall, hypokinesis of the basal inferolateral wall. Mild mitral regurgitation, mild tricuspid regurgitation, mild pulmonary hypertension, dilated IVC. We are assuming this is cardiorenal syndrome. - S/P femoral catheter yesterday and new permacath yesterday. -will dialyze now -she has residual renal fxn- hopefully can maintain on twice weekly dialysis. as outpt, monitor for renal recovery versus need to stay on HD 2. She is postop day #3 status post PCI proximal to mid left circumflex artery LAD has diffuse disease and will need staged intervention 3. Right upper lung irregular pulmonary nodule Subsolid nodule left upper lobe: Please ensure she has pulmonary follow-up 4. Liver cirrhosis. Patient is concerned about the etiology and significance of her disease. As per hospitalist. 5. Anemia: Normal SPEP. Iron saturation of 20% ferritin of 797 Hemoglobin stable at 8.5 Leukocytosis: White cell count slowly improving to 18 5. Diabetic management as per hospitalist. 6. Normal TSH 7 use phosphorus binder 8. Blood pressure stable. 9. Non-ST elevation MT Medications reviewed. The patient was seen and examined using A/V equipment with the aid of a nurse. The patient consents to telehealth and to dialysis. Plan: HD today and then hopeful d/c to rehab PDMP PDMP Reviewed: Not Reviewed Attestations Medical Necessity Statement*: per hospitalist Time Spent in Patient Care: 16 - 35 minutes (>than 50% of time spent in counselling and/or direct pt care on unit). Coding Level of Care Code Acute Code for [facility] Diagnoses Acute kidney injury superimposed on CKD N17.9; N18.9
[2025-01-02] MEDS: ferric gluconate 125 MG in sodium chloride 0.9% (100 ml) 100 ML 110 MG IV (11:25)
--- NOTE | 2025-01-02 13:01 | P.PN_ITS ---
<Statement entered by Karlo Hughes M.D - 01/03/25 09:38> Patient was cared for in conjunction with an advanced practice practitioner.? I reviewed the chart and all pertinent data including imaging, telemetry, and laboratory results.? I discussed the patient in detail with the advanced practice practitioner.? Please see?their note for progress note, testing results and agreed upon plan of care for the patient. Subjective 2 Subjective: Patient status post stent x 2 to the left circumflex, RCA completely totally occluded, 70% LAD remains. Blood pressure stable. Overall patient denies any signs or symptoms such as chest pain or increased shortness of breath. H&H stable at 8.5 and 27.1. Will continue aspirin and Plavix. Vitals/I&O/Wt Last Vital Signs Temp 97.6 F 01/02/25 11:29 Pulse 73 01/02/25 11:29 Resp 24 H 01/02/25 11:29 BP 121/54 01/02/25 11:29 Pulse Ox 92 01/02/25 11:29 O2 Del Method Room Air 01/02/25 11:29 O2 Flow Rate 1 12/30/24 07:53 FiO2 24 01/02/25 03:13 01/01/25 01/02/25 01/02/25 22:59 06:59 14:59 Intake Total 240 / 400 480 / 480 Output Total 850 / 860 400 / 1260 300 / 300 Balance -610 / -460 -400 / -860 180 / 180 Weight last 48 hrs Weight 211 lb Weight 205 lb 9.6 oz Physical Exam 2 Narrative: General: No apparent distress HENMT: normoceophalic Muskuloskeletal: Full ROM Respiratory: Normal respiratory effort, fine crackles bilateral lower lobes posteriorly otherwise clear throughout, no use of accessory muscles Cardio: No JVD, regular rate, regular rhythm, S1 S2 normal, no murmurs, peripheral pulses 2+ radial palpated bilaterally GI: Normal to inspection, nondistended Extremities: Full ROM, normal, normal capillary refill, no cyanosis or edema Neuro: Alert and oriented x4, no focal motor deficits Psych: Affect normal, denies suicidal ideation, mental status grossly normal Skin: Right Shaikh stick site clean dry intact no signs of hematoma present Urinary Catheter Management: Lion: Cath Placed During This Visit: yes, but has since been removed by the nurse Reason for Continuing Indwelling Catheter: Accurate Measurement of Urinary Output in Critically Ill Patients Urinary Catheter Date of Insertion: 12/21/24 Urinary Catheter Time of Insertion: 09:58 Date Urinary Catheter Removed: 01/02/25 Time Urinary Catheter Discontinued: 10:00 Data 01/02/25 03:39 01/02/25 03:39 A&P Assessment and plan 1. Coronary artery disease: 2. CHF exacerbation: 3. Abnormal nuclear stress test: 4. NSTEMI (non-ST elevated myocardial infarction): 5. Type 2 diabetes mellitus: 6. Acute kidney injury superimposed on CKD: 7. Chronic anemia: Plan: Patient is stable from cardiac standpoint. Continue aspirin and Plavix. High intensity statin therapy. LAD has residual 70% stenosis. Will likely need staged PCI in 2-4 weeks if tolerating Plavix and Aspirin without severe anemia. Recommend continue lasix PO. Ok to discharge from cardiology standpoint when medically able from primary standpoint. PDMP PDMP Reviewed: Not Reviewed Attestations 2 Medical Necessity Statement*: deferred to primary Coding Level of Care Code Acute Code for [facility] Diagnoses Coronary artery disease I25.10 CHF exacerbation I50.9 Abnormal nuclear stress test R94.39 NSTEMI (non-ST elevated myocardial infarction) I21.4 Type 2 diabetes mellitus E11.9 Acute kidney injury superimposed on CKD N17.9; N18.9 Chronic anemia D64.9
--- NOTE | 2025-01-02 13:36 | PC.NURSE ---
Patient left unit for dialysis at 1330.
--- NOTE | 2025-01-02 13:52 | PC.NURSE ---
Nursing call report to GURMEET Valentin, at [facility] at [phone]. Barbie thought that [facility] transportation would be able to pick her up after dialysis. They will call us back to confirm.
[2025-01-02 15:29] LABS: DNA AB (DS) CRITHIDIA,IFA NEGATIVE (NEGATIVE)
--- NOTE | 2025-01-02 15:48 | PC.HD ---
At 1530, temporary L femoral HD catheter was pulled by electro mechanical engineer. Pressure held 10 minutes, hemostasis achieved. Gauze 2x2 and Tegaderm applied. Dressing remains c/d/i.
--- NOTE | 2025-01-02 15:52 | PC.OT ---
Attempted skilled OT treatment. Pt out of room for dialysis. Scheduled for D/C to SNF later today. Will reattempt treatment tomorrow.
--- NOTE | 2025-01-02 16:37 | PC.NURSE ---
Provider ordered nursing to remove PICC line prior to her going to [facility].
--- NOTE | 2025-01-02 18:05 | PC.NURSE ---
Patient returned to [facility] from dialysis at 1732.
== END 2025-01-02 18:45 | disposition skilled nursing facility (03) | DRG 853 ==
LOC: ER 21:57 → ER IP 23:54 → MEDSURG 12-21 06:11 → ICU 12-21 11:53 → CSU 12-29 20:43
PROVIDERS: Family Medicine; Hospitalist; Internal Medicine; Internal Medicine Nephrology; Surgery; Admitting Provider Student in an Organized Health Care Education/Training Program; Emergency Provider Family Medicine; PCP Internal Medicine; Visit Provider Student in an Organized Health Care Education/Training Program
PROC: 027135Z Dilation of Coronary Artery, Two Arteries with Two Drug-eluting Intraluminal Devices, Percutaneous Approach (ICD-10-PCS; principal; 2024-12-30 07:00)
PROC: 027135Z Dilation of Coronary Artery, Two Arteries with Two Drug-eluting Intraluminal Devices, Percutaneous Approach (ICD-10-PCS; 2024-12-30 07:00)
PROC: 0JH60XZ Insertion of Tunneled Vascular Access Device into Chest Subcutaneous Tissue and Fascia, Open Approach (ICD-10-PCS; principal; 2025-01-01 12:35)
DX: A41.9 Sepsis, unspecified organism (principal); I21.4 Non-ST elevation (NSTEMI) myocardial infarction; J96.01 Acute respiratory failure with hypoxia; J18.9 Pneumonia, unspecified organism; I50.23 Acute on chronic systolic (congestive) heart failure; I13.0 Hypertensive heart and chronic kidney disease with heart failure and stage 1 through stage 4 chronic kidney disease, or unspecified chronic kidney disease; N18.4 Chronic kidney disease, stage 4 (severe); N17.9 Acute kidney failure, unspecified; E87.20 Acidosis, unspecified; E87.1 Hypo-osmolality and hyponatremia; I25.10 Atherosclerotic heart disease of native coronary artery without angina pectoris; E11.610 Type 2 diabetes mellitus with diabetic neuropathic arthropathy; E11.22 Type 2 diabetes mellitus with diabetic chronic kidney disease; D63.1 Anemia in chronic kidney disease; M06.00 Rheumatoid arthritis without rheumatoid factor, unspecified site; D72.829 Elevated white blood cell count, unspecified; R91.1 Solitary pulmonary nodule; Z59.82 Transportation insecurity; Z66 Do not resuscitate; Z79.899 Other long term (current) drug therapy; Z79.82 Long term (current) use of aspirin; Z79.891 Long term (current) use of opiate analgesic; Z96.669 Presence of unspecified artificial ankle joint; Z96.649 Presence of unspecified artificial hip joint; Z96.659 Presence of unspecified artificial knee joint; E78.5 Hyperlipidemia, unspecified; K74.60 Unspecified cirrhosis of liver; M1A.9XX0 Chronic gout, unspecified, without tophus (tophi); E86.1 Hypovolemia
CPT/HCPCS: 36415; 36416; 36430; 36573; 36592; 36600; 51702; 51798; 71045; 71250; 74176; 76705; 77001; 78014; 78452; 80048; 80053; 80061; 80202; 80306; 80503; 81001; 81206; 81207; 82310; 82550; 82607; 82728; 82746; 82803; 82962; 83036; 83520; 83540; 83550; 83605; 83735; 83880; 83970; 84100; 84132; 84145; 84155; 84165; 84443; 84484; 84550; 85025; 85347; 85378; 85610; 85730; 86036; 86038; 86140; 86160; 86162; 86235; 86255; 86334; 86376; 86705; 86706; 86709; 86803; 86850; 86900; 86920; 87070; 87205; 87340; 87486; 87581; 87633; 87635; 87637; 88184; 88185; 90935; 93005; 93017; 93306; 93454; 93970; 94640; 94660; 96372; 96374; 96375; 97110; 97116; 97162; 97165; 97530; 97535; 99152; 99153; 99291; A9500; A9540; A9567; C1725; C1750; C1760; C1769; C1874; C1887; C1894; C9600; G0269; J0612; J0690; J0692; J1644; J1815; J1938; J2185; J2250; J2704; J2785; J2916; J2919; J3010; J3372; J3373; J7030; J7050; J7626; J7799; J9999; P9040; P9046; P9047; Q3014; Q5105; Q9967

== ENCOUNTER → 2025-01-16 13:48 | Outpatient (BNVA) | payer MEDICARE, OTHER, SELFPAY | PROVIDERS: PCP Internal Medicine; Visit Provider Nurse Practitioner Family | DX: I25.10 Atherosclerotic heart disease of native coronary artery without angina pectoris (principal); I77.9 Disorder of arteries and arterioles, unspecified; I50.33 Acute on chronic diastolic (congestive) heart failure; N18.9 Chronic kidney disease, unspecified; Z99.2 Dependence on renal dialysis; K74.60 Unspecified cirrhosis of liver; R91.8 Other nonspecific abnormal finding of lung field; Z79.82 Long term (current) use of aspirin; Z95.5 Presence of coronary angioplasty implant and graft; I25.2 Old myocardial infarction; I65.23 Occlusion and stenosis of bilateral carotid arteries | CPT/HCPCS: 99214 ==

== ENCOUNTER → 2025-03-14 14:00 | Outpatient (BNVA) | payer MEDICARE, OTHER, SELFPAY | PROVIDERS: PCP Internal Medicine; Visit Provider Internal Medicine | DX: I25.10 Atherosclerotic heart disease of native coronary artery without angina pectoris (principal); R07.9 Chest pain, unspecified; Z95.5 Presence of coronary angioplasty implant and graft | CPT/HCPCS: 93005; 99214 ==

== ENCOUNTER → 2025-04-17 13:38 | Outpatient (BNVA) | payer MEDICARE, OTHER, SELFPAY | PROVIDERS: PCP Internal Medicine; Visit Provider Internal Medicine Rheumatology | DX: M06.041 Rheumatoid arthritis without rheumatoid factor, right hand (principal); M06.042 Rheumatoid arthritis without rheumatoid factor, left hand; E11.610 Type 2 diabetes mellitus with diabetic neuropathic arthropathy; Z79.899 Other long term (current) drug therapy; Z71.85 Encounter for immunization safety counseling; M10.00 Idiopathic gout, unspecified site | CPT/HCPCS: 99214 ==

== ENCOUNTER 2025-05-01 08:17 | Outpatient (CLI) | payer MEDICARE, OTHER, SELFPAY ==
--- NOTE | 2025-05-01 08:27 | US_ITS ---
WS: [id number] RIGHT UPPER QUADRANT ULTRASOUND HISTORY: ASCITES COMPARISON: None available. Liver: 13.9 cm in length. Normal size liver and echogenicity. No bile duct dilatation or mass. Portal Vein: Normal hepatopetal flow with monophasic waveform. Gallbladder: Prior cholecystectomy. CBD: 0.4 cm Pancreas: Echogenic pancreas. Partially visualized pancreas due to body habitus. Right kidney: 9.1 cm in length. Kidney is normal size. Mild cortical thinning. Increased echogenicity and poor corticomedullary differentiation. Aorta and IVC: Unremarkable abdominal aorta and IVC. No ascites. US/US abdomen limited [id number] IMPRESSION: 1. No ascites. 2. Chronic medical renal disease RIGHT kidney. 3. Prior cholecystectomy. 4. No intrahepatic duct dilatation.
== END 2025-05-01 08:18 | disposition home or self-care (01) ==
LOC: RAD 08:19
PROVIDERS: PCP Internal Medicine; Visit Provider Internal Medicine
DX: R18.8 Other ascites (principal); Z90.49 Acquired absence of other specified parts of digestive tract; N18.9 Chronic kidney disease, unspecified
CPT/HCPCS: 76705